=== PATIENT | female | born 1960 | race Caucasian/White ===

== ENCOUNTER 2024-01-30 05:09 | Inpatient (IN) | payer MEDICAID, SELFPAY ==
[2024-01-30] VITALS (7 sets, daily range): BP systolic 112–142; BP diastolic 64–92; PULSE 95–114; RESP 16–21; TEMP 36.6–37.2; O2SAT 93–98; BMI 37.8; BMI 44.4
--- NOTE | 2024-01-30 05:41 | PD.EDRME ---
Rapid Medical Screening Exam RME Arrival date/time: 01/30/24 05:09 Chief Complaint: Fall Time Seen by Provider: 01/30/24 05:42 Vital signs: Vital Signs Temperature 98.9 F 01/30/24 05:33 Pulse Rate 114 H 01/30/24 05:33 Respiratory Rate 19 01/30/24 05:33 Blood Pressure 112/92 H 01/30/24 05:33 Pulse Oximetry (%) 96 01/30/24 05:33 Oxygen Delivery Method Room Air 01/30/24 05:33 RME Narrative: 63 yo female patient c/o left knee pain s/p fall two days ago. Patient has a history of left foot drop and was without her brace when she needed to navigate down some stairs. Her foot twisted and she tripped, injuring her left knee.
--- NOTE | 2024-01-30 05:42 | XR_ITS ---
Examination:Left hip AP, lateral, AP pelvis 3 views Technique: Hip AP lateral, AP pelvis, 3 views Exam date and time:At 0600 hrs. Indications: Patient fell today with injury to the left hip, left hip pain Findings: No true AP view of the left hip Pelvis is not entirely included on this film No definite left hip fracture Impression: Technically limited study No left hip fracture noted Recommend follow-up true coned AP lateral left hip series as clinically warranted.
--- NOTE | 2024-01-30 05:42 | XR_ITS ---
Examination: Tibia-Fibula, left , 2 views Technique: Tibia-fibula AP lateral 2 views Date and time of exam: January 30, 2024 0547 hrs. Indications: Patient fell today with injury to the lower leg, lower leg pain. Findings: Severe osteopenia The lateral view does not include the upper portion of the lower leg No fracture noted Impression: Incomplete study Repeat as clinically warranted
--- NOTE | 2024-01-30 05:44 | XR_ITS ---
Examination: Knee, left , 3 views Technique: Knee AP, lateral, oblique 3 views Date and time of exam: Hours Indications: Patient fell today with injury to the knee, knee pain. Findings: Severe osteopenia No acute fracture No dislocation Impression: No acute fracture Given the severe osteopenia, recommend follow-up left knee films short-term as clinically warranted
[2024-01-30] MEDS: ONDANSETRON INJ 2 MG/ML INJ 2 ML 4 MG IV (06:00)
[2024-01-30] MEDS: MORPHINE SULF INJ 10 MG/ML VIAL 5 MG IVP (06:01)
--- NOTE | 2024-01-30 06:07 | PC.NURSE ---
X ray with pt now. Pt given Morphine IV. O2 @ 2L NC placed on pt.
--- NOTE | 2024-01-30 06:31 | EDNOTE_ITS ---
Lower Extremity Injury RME/HPI General Chief Complaint: Fall Stated Complaint: FALL Time Seen by Provider: 01/30/24 05:42 Arrival date/time: 01/30/24 05:09 RME / HPI RME / HPI Narrative: 63 yo female patient c/o left knee pain s/p fall two days ago. Patient has a history of left foot drop and was without her brace when she needed to navigate down some stairs. Her foot twisted and she tripped, injuring her left knee. DR. RAYMUNDO MAIN ED EVALUATION 63 year old female with history of COPD, asthma, DVT in the LLE currently on Eliquis, cirrhosis presents to the ED BIBA from home for evaluation of left lower extremity pain after fall occurring 3 days ago. States 3 days ago she was walking up the stairs with assistance of her friends when she lost her footing. States she fell down landing on her left side. States since the fall she has had pain to the left lower extremity, beginning in the hip and radiating down the leg and most severe to the left knee. Described as sharp in sensation and rating as moderate-severe that is aggravated with movements. Accompanied by redness and swelling from the knee down although states that began before the fall and has history of on/off for several months. Denied any head injury or LOC 3 days ago. Denies pain to her neck, chest, abdomen, back, or upper extremities. Patient mentioned at baseline she uses a left foot brace for foot drop and uses a walker to walk. Also uses a wheelchair. Related Data Home Medications ?Medication ?Instructions ?Recorded ?Confirmed albuterol sulfate 90 mcg/actuation 2 inh inhalation Q6H PRN wheeze 10/27/22 04/26/23 aerosol inhaler aspirin 81 mg tablet,delayed 81 mg PO DAILY 10/27/22 04/26/23 release duloxetine 60 mg capsule,delayed 60 mg PO DAILY 10/27/22 04/26/23 release gabapentin 300 mg capsule 300 mg PO TID 10/27/22 04/26/23 lisinopril 20 mg tablet 20 mg PO DAILY 10/27/22 04/26/23 pantoprazole 40 mg tablet,delayed 40 mg PO QDAY 10/27/22 04/26/23 release prazosin 1 mg capsule 1 mg PO HS 10/27/22 04/26/23 furosemide 40 mg tablet 40 mg PO QDAY 02/12/23 04/26/23 lactulose 10 gram/15 mL oral syrup 20 g PO BID 02/12/23 04/26/23 levothyroxine 50 mcg capsule 50 mcg PO ACBR 02/12/23 04/26/23 oxycodone 10 mg tablet 10 mg PO BID PRN Severe Pain 02/12/23 04/26/23 (Scale Score 7-10) tramadol 100 mg tablet 100 mg PO TID PRN Moderate Pain 02/12/23 04/26/23 (Scale Score 5-6) furosemide 40 mg tablet 40 mg PO QDAY 03/08/23 04/26/23 Previous Rx's ?Medication ?Instructions ?Recorded apixaban 5 mg tablet (Eliquis) 5 mg PO BID #60 tabs 02/14/23 Allergies Allergy/AdvReac Type Severity Reaction Status Date / Time Penicillins Allergy Severe Anaphylaxis Verified 03/08/23 10:20 erythromycin base AdvReac Intermediate Abdominal Verified 03/08/23 10:20 Pain lorazepam [From Ativan] AdvReac Intermediate COULDN'T Verified 03/08/23 10:20 TALK Review of Systems Review of Systems Narrative Review of Systems: GEN: No fever, no chills, no weight loss EYES: No discharge, no visual changes, no pain HEENT: No ear pain, no congestion, no sore throat PULM: No shortness of breath, no cough, no congestion CV: No chest pain, no dyspnea on exertion, no palpitations GI: No nausea, no vomiting, no diarrhea, no pain, no constipation : No frequency, no urgency and no dysuria MUSC/SKEL: +LLE pain, +left knee pain, no back pain SKIN: No rash HEME/LYMPH: +hx of LLE DVT currently on Eliquis. NEURO: No weakness, no headache Past Medical History Past Medical History CARDIAC: Positive Hypercholesterolemia and Hypertension RESPIRATORY: Positive Chronic Obstructive Pulmonary Disease (COPD), Asthma, Smoking and Tobacco Use GENITOURINARY: Positive Genitourinary Disorders (swollen left kidney) MUSCULOSKELETAL: Positive Arthritis, Osteoporosis, Degenerative Disk Disease and Fractures HEMATOLOGIC: Positive Anemia PSYCHO/SOCIAL: Positive Recreational Drug Use and Depression OTHER HISTORY: Positive Blood Transfusions Family History FAMILY HISTORY: Positive Family Cardiac Disorders and Family Cancer Surgical History SURGICAL: Positive Abdominal Surgery, Gastric Bypass Surgery, Lumpectomy and Section Social History SMOKING STATUS: Current every day smoker SUBSTANCE USE: methamphetamine ED Exam Narrative Physical exam: GENERAL APPEARANCE: Well hydrated, well nourished, in mild distress. Obese. VITALS: All vitals were reviewed and the pulse ox is 96% on room air which is normal according to my interpretation. HEENT: Normocephalic, atramatic, EOMI, EACs are patent. Moist oromucosa. No jaundice NECK: Supple, no JVD or bruits. CARDIOVASCULAR: Heart regular without S3-S4 or murmur. No rubs or gallops. LUNGS/CHEST: Clear to auscultation bilaterally. No rales, rhonchi, or wheezing. Normal inspection. ABDOMEN: Soft, obese, nontender, with normal bowel sounds. No pulsatile masses. No rebound, rigidity, or guarding. No incarcerated hernia. Normal inspection and palpation. EXTREMITIES: Left foot drop. Left hip tenderness, no shortened leg or external rotation. Left knee swelling and tenderness. There is redness, increased warmth, and tenderness to touch over the left tib-fib area. No edema, clubbing, or cyanosis. Intact CSM SKIN: Warm and dry without rashes. Normal inspection. MUSCULOSKELETAL: As noted above. No gross deformity. NEURO: Alert and oriented x3. Cranial nerves II through XII grossly intact. There are no other motor or sensory deficits noted. PSYCHIATRIC: Normal mood and affect. No psychosis. Course Quality Measures none Orders Category Date Time Status Miscellaneous Nursing Order NOW Care 01/30/24 13:03 Active Saline [Insert IV] NOW Care 01/30/24 06:[address] head/brain wo con Stat Exams 01/30/24 06:[address] hip LT wo con Stat Exams 01/30/24 06:[address] knee LT wo con Stat Exams 01/30/24 06:39 Completed US venous doppler LE LT Stat Exams 01/30/24 06:39 Completed XR hip LT w pelvis min 4V Stat Exams 01/30/24 05:42 Completed XR knee comp LT 4V Stat Exams 01/30/24 05:44 Completed XR tibia fibula LT 2V Stat Exams 01/30/24 05:42 Completed CBC Stat Lab 01/30/24 06:59 Completed CMP [Comprehensive Metabolic Panel] Stat Lab 01/30/24 06:59 Completed PT [Prothrombin Time with INR] Stat Lab 01/30/24 06:59 Completed PTT [Partial Thromboplastin Time] Stat Lab 01/30/24 06:59 Completed Morphine Inj Med 01/30/24 09:35 Discontinued 4 mg IVP X1 ONE Morphine Inj Med 01/30/24 05:42 Discontinued 5 mg IVP X1 ONE Ondansetron Inj [Zofran Inj] Med 01/30/24 05:42 Discontinued 4 mg IV X1 ONE Ondansetron Inj [Zofran Inj] Med 01/30/24 09:35 Discontinued 4 mg IV X1 ONE Vital Signs Vital signs: Vital Signs Temperature 98.9 F 01/30/24 05:33 Pulse Rate 114 H 01/30/24 05:33 Respiratory Rate 19 01/30/24 05:33 Blood Pressure 112/92 H 01/30/24 05:33 Pulse Oximetry (%) 96 01/30/24 05:33 Oxygen Delivery Method Room Air 01/30/24 05:33 Pulse ox is 96% on room air which is adequate. Extremity Injury, Lower MDM Narrative MDM Narrative:: Rabia Hanna am scribing for and in the presence of Dr. Raymundo. CBC negative. CMP negative. CT brain was reviewed and interpreted by me as follow: No bleed. No mass. No shift. No swelling. Normal ventricle. Normal skull. CT left hip reviewed and interpreted by me as follow: No fracture. No dislocation. Normal acetabulum. Normal superior and inferior pubic rami. CT of the left knee reviewed and interpreted by me as follow: Positive for fluid inside the knee joint. Positive for medial plateau fracture of the tibia. With minimal displacement on the coronal view. Left hip x-ray interpreted by me: No fracture. No dislocation. Normal bones. Left tibia and fibula x-rays interpreted by me: No fracture. No dislocation. No foreign body. Minimum soft tissue swelling. Left knee x-rays interpreted by me: It appears that she has a fracture of the medial part of the tibial plateau. Also some swelling. No dislocation DVT study of the left leg is negative by ultrasound. 1 PM, I spoke to and discussed with Dr. Harrison, orthopedist on-call. He agreed to consult on admission. He also recommend MRI of the left knee. He is aware that the CAT scan has been done. 1:20 PM, I spoke to and discussed with Dr. Heaton, hospitalist on-call. He agrees to evaluate the patient for admission. Critical care time is approximately 35 minutes excluding any procedure. The high probability of sudden, clinically significant deterioration in the patient?s condition required the highest level of my preparedness to intervene urgently. The services I provided to this patient were to treat and/or prevent clinically significant deterioration. Services included the following: chart data review, reviewing nursing notes and/or old charts, documentation time, senior sustainability consultant collaboration regarding findings and treatment options, medication orders and management, direct patient care, vital sign assessments and ordering, interpreting and reviewing diagnostic studies and lab tests. Aggregate critical care time includes only time during which I was engaged in work directly related to the patient?s care, as described above, whether at bedside or elsewhere in the Emergency Department. It did not include time spent performing other reported procedures or the services of residents, students, nurses or physician assistants. Patient data External records reviewed:: [facility] previous records (I reviewed admission from 02/11/2023 through 02/14/2023) and EMS form Clinical information provided by:: patient and other (specify) (RN, provided medics prehospital report ) Social determinants that could affect healthcare access:: alcohol use (Patient admits to last drinking last night ) Patient has the following chronic illnesses:: COPD, asthma, DVT in the LLE currently on Eliquis, cirrhosis How is presenting disease/condition affected by chronic disease/condition?: exacerbated by Evaluation data The following diagnostics were reviewed and interpreted by me:: lab results and radiology exam(s) Lab and/or radiology exams considered but not ordered:: None Interpretation Summary: Ordering Physician: Juli Szymanski MD Date of Service: 01/30/24 Procedure(s): XR hip LT w pelvis min 4V Accession Number(s): [id number] cc: Josue Mosquera MD; NO PRIMARY/FAMILY,PHYSICIAN; Juli Szymanski MD~ Examination:Left hip AP, lateral, AP pelvis 3 views Technique: Hip AP lateral, AP pelvis, 3 views Exam date and time:At 0600 hrs. Indications: Patient fell today with injury to the left hip, left hip pain Findings: No true AP view of the left hip Pelvis is not entirely included on this film No definite left hip fracture Impression: Technically limited study No left hip fracture noted Recommend follow-up true coned AP lateral left hip series as clinically warranted. Dictated By: Josue Mosquera MD Signed By: <Electronically signed by Josue Mosquera MD in OV> 01/30/24 0726 ===== Ordering Physician: Juli Szymanski MD Date of Service: 01/30/24 Procedure(s): XR tibia fibula LT 2V Accession Number(s): [id number] cc: Josue Mosquera MD; NO PRIMARY/FAMILY,PHYSICIAN; Juli Szymanski MD~ Examination: Tibia-Fibula, left , 2 views Technique: Tibia-fibula AP lateral 2 views Date and time of exam: January 30, 2024 0547 hrs. Indications: Patient fell today with injury to the lower leg, lower leg pain. Findings: Severe osteopenia The lateral view does not include the upper portion of the lower leg No fracture noted Impression: Incomplete study Repeat as clinically warranted Dictated By: Josue Mosquera MD Signed By: <Electronically signed by Josue Mosquera MD in OV> 01/30/24 0732 == Ordering Physician: Juli Szymanski MD Date of Service: 01/30/24 Procedure(s): XR knee comp LT 4V Accession Number(s): [id number] cc: Josue Mosquera MD; NO PRIMARY/FAMILY,PHYSICIAN; Juli Szymanski MD~ Examination: Knee, left , 3 views Technique: Knee AP, lateral, oblique 3 views Date and time of exam: Hours Indications: Patient fell today with injury to the knee, knee pain. Findings: Severe osteopenia No acute fracture No dislocation Impression: No acute fracture Given the severe osteopenia, recommend follow-up left knee films short-term as clinically warranted Dictated By: Josue Mosquera MD Signed By: <Electronically signed by Josue Mosquera MD in OV> 01/30/24 07 == Ordering Physician: Rashawn Raymundo MD Date of Service: 01/30/24 Procedure(s): CT head/brain wo con Accession Number(s): [id number] cc: Josue Mosquera MD; NO PRIMARY/FAMILY,PHYSICIAN; Rashawn Raymundo MD~ Examination: CT brain head without contrast. 2-D sagittal coronal reconstructions Date and time of exam:January 30, 2024 0721 hrs. Comparison 10/26/2022 Indications: Patient fell today, injury to the head, head pain, the patient is anticoagulated CTDI: vol (mGy):50.2 DLP: (mGycm):1092 Technique: Multiple CT axial sections of the brain have been obtained, 5 mm slice thickness. Contrast has not been administered. 2-D sagittal, coronal reconstructions have been obtained Low dose protocols were performed. One or more of the following dose reduction techniques were used; automated exposure control, adjustment of the mA and/or KV according to patient size, use of iterative reconstruction technique. Findings: No significant ventricular enlargement. Intra-axial or extra-axial hemorrhage density is not seen. No mass effect or midline shift Basal cisterns are not remarkable. Fourth ventricle is midline. Cranial vault intact. Impression: Negative for acute hemorrhage, mass effect or midline shift Dictated By: Josue Mosquera MD Signed By: <Electronically signed by Josue Mosquera MD in OV> 01/30/24 0752 === Ordering Physician: Rashawn Raymundo MD Date of Service: 01/30/24 Procedure(s): CT hip LT wo con Accession Number(s): [id number] cc: Josue Mosquera MD; NO PRIMARY/FAMILY,PHYSICIAN; Rashawn Raymundo MD~ Examination: CT pelvis without intravenous contrast. CT left hip without intravenous contrast 2-D sagittal and coronal reconstructions. Date and time of exam:January 30 2024 0723 hrs. CTDI: vol (mGy) :5 DLP: (mGycm) : 591 Technique: Multiple 3 mm axial sections of the pelvis left hip have been obtained with the 64 slice high resolution scanner. 2-D sagittal and coronal reconstructions. Low dose protocols were performed. One or more of the following dose reduction techniques were used; automated exposure control, adjustment of the mA and/or KV according to patient size, use of iterative reconstruction technique. Findings: Bones of the pelvis including acetabular regions anterior rami intact Right and left hip intact No hip dislocations Soft tissue contusion lateral to the left hip Urinary bladder intact Impression: Soft tissue contusion lateral to the left hip No acute hip or pelvic fracture Recommend 1-2 day follow-up AP pelvis as clinically warranted Dictated By: Josue Mosquera MD Signed By: <Electronically signed by Josue Mosquera MD in OV> 01/30/24 0821 == Ordering Physician: Rashawn Raymundo MD Date of Service: 01/30/24 Procedure(s): CT knee LT wo con Accession Number(s): [id number] cc: Josue Mosquera MD; NO PRIMARY/FAMILY,PHYSICIAN; Rashawn Raymundo MD~ Examination: CT left knee, without contrast. 2-D sagittal reconstructions. 2-D coronal reconstructions. 3-D reconstructions. Date and time of exam:January 30, 2024 0730 hrs. Indications: Patient fell today with injury to the knee, knee pain CTDI: vol (mGy):11 DLP: (mGycm):358 Technique: Multiple 1.25 mm axial sections of the left knee without intravenous contrast have been obtained. 2-D sagittal and coronal reconstructions have been obtained. 3-D reconstructions have been obtained. Low dose protocols were performed. One or more of the following dose reduction techniques were used; automated exposure control, adjustment of the mA and/or KV according to patient size, use of iterative reconstruction technique. Findings: Severe osteopenia distal femur femoral condyles intact Patella intact Acute fracture proximal tibia through the medial tibial metaphyseal region extending to the medial tibial plateau and intercondylar region of the tibial spine Extensive blood in the joint space No foreign body Impression: Acute fractures proximal tibia through the medial tibial plateau region and intercondylar spine region without major displacement Dictated By: Josue Mosquera MD Signed By: <Electronically signed by Josue Mosquera MD in OV> 01/30/24 0819 ========= Ordering Physician: Rashawn Raymundo MD Date of Service: 01/30/24 Procedure(s): US venous doppler LE Accession Number(s): [id number] cc: Josue Mosquera MD; NO PRIMARY/FAMILY,PHYSICIAN; Rashawn Raymundo MD~ Examination: Duplex scan of the lower extremity, unilateral left complete Date and time of exam: January 30, 2024 0746 hours Indications left leg swelling and pain beginning today Technique: Duplex scan of the extremity veins using B-mode/grayscale imaging and Doppler spectral analysis and color flow Attention is directed to internal echogenicity, compression and augmentation involving these veins, color flow assessment, spectral analysis Findings: Major deep venous structures in the extremity demonstrate normal course and caliber. There is no evidence of deep vein thrombosis. Normal color flow and spectral analysis Impression: Negative for DVT.. Dictated By: Josue Mosquera MD Signed By: <Electronically signed by Josue Mosquera MD in OV> 01/30/24 0953 Medications / Prescriptions Medications or Prescriptions considered but not ordered:: None Medication administrations:: Medication Administration History Discontinued Medications Morphine Sulfate (Morphine Sulf Inj 10 Mg/Ml Vial) 5 mg IVP X1 ONE Stop: 01/30/24 05:43 Last Admin: 01/30/24 06:01 Dose: 5 mg Documented By: DIVYA Morphine Sulfate (Morphine Sulf Inj 10 Mg/Ml Vial) 4 mg IVP X1 ONE Stop: 01/30/24 09:36 Last Admin: 01/30/24 10:07 Dose: 4 mg Documented By: Ondansetron HCl (Ondansetron Inj 2 Mg/Ml Inj 2 Ml) 4 mg IV X1 ONE Stop: 01/30/24 05:43 Last Admin: 01/30/24 06:00 Dose: 4 mg Documented By: DIVYA Ondansetron HCl (Ondansetron Inj 2 Mg/Ml Inj 2 Ml) 4 mg IV X1 ONE; Protocol Stop: 01/30/24 09:36 Last Admin: 01/30/24 12:17 Dose: Not Given Documented By: Non-Admin Reason: Patient Refused See above Consultations Consultation(s) initiated? (list below): Yes Consultation #1 (Physician, Specialty, Details): I spoke with ortho Dr. Gonzalez. Discussed patients PMHx, HPI, ED course, exam findings, and radiology results. States he will review the images and call back. Time: 09:45 Consultation #2 (Physician, Specialty, Details): I spoke with ortho Dr. Gonzalez. He recommends admission and agrees to consult. Consultation #3 (Physician, Specialty, Details): I spoke with hospitalist Dr. Heaton. Discussed patients PMHx, HPI, ED course, exam findings, labs, and radiology results. The hospitalist agree to accept the patient for admission. Diagnosis Extremity Injury, Lower Differential Diagnosis: acute internal derangement of knee, fracture of femur and fracture of hip Most likely diagnosis given after review of the tests above:: Left tibial plateau fracture. Admission Indicated Admission indicated?: indicated Admission Request Was there a request for admission?: Yes Admission Attestation Admission request attestation: Discussed case with [] from Hospitalist service regarding admission. Discussed patients ED course, exam findings, labs, and radiology results. The Hospitalist [agrees,declines] to accept the patient for admission. Disposition Plan Disposition Plan: Admit Discharge Plan Plan Patient Disposition: Admit Acute Care w/in Hospital Disposition Comment: Stable Prescriptions/Referrals Prescriptions/Med Rec: No Action furosemide 40 mg tablet 40 mg PO QDAY lactulose 10 gram/15 mL Syrup 20 g PO BID oxycodone 10 mg Tablet 10 mg PO BID PRN (Reason: Severe Pain (Scale Score 7-10)) tramadol 100 mg Tablet 100 mg PO TID PRN (Reason: Moderate Pain (Scale Score 5-6)) furosemide 40 mg Tablet 40 mg PO QDAY Hold Instructions: Hold until follow up with PCP Rx Instructions: Hold SBP<100, DBP <60 levothyroxine 50 mcg capsule 50 mcg PO ACBR Eliquis 5 mg tablet 5 mg PO BID Qty: 60 0RF prazosin 1 mg capsule 1 mg PO HS Hold Instructions: Hold until follow up with PCP Rx Instructions: Hold If SBP<100, DBP< 60 lisinopril 20 mg tablet 20 mg PO DAILY Hold Instructions: Hold until follow up with PCP Rx Instructions: Hold for SBP<100, DBP <60 aspirin 81 mg tablet,delayed release (DR/EC) 81 mg PO DAILY pantoprazole 40 mg tablet,delayed release (DR/EC) 40 mg PO QDAY gabapentin 300 mg capsule 300 mg PO TID albuterol sulfate 90 mcg/actuation HFA aerosol inhaler 2 inh INHALATION Q6H PRN (Reason: wheeze) duloxetine 60 mg capsule,delayed release(DR/EC) 60 mg PO DAILY Referrals: No Primary/Family,Physician [Primary Care Provider] - In 1 week Problem List Clinical Impression: Closed fracture of tibial plateau Patient/Caregiver Discharge Instructions Print Language: Ukrainian Stand Alone Forms: Cami Award Info., Patient Portal Info Letter
--- NOTE | 2024-01-30 06:39 | XR_ITS ---
Examination: CT pelvis without intravenous contrast. CT left hip without intravenous contrast 2-D sagittal and coronal reconstructions. Date and time of exam:January 30 2024 0723 hrs. CTDI: vol (mGy) :5 DLP: (mGycm) : 591 Technique: Multiple 3 mm axial sections of the pelvis left hip have been obtained with the 64 slice high resolution scanner. 2-D sagittal and coronal reconstructions. Low dose protocols were performed. One or more of the following dose reduction techniques were used; automated exposure control, adjustment of the mA and/or KV according to patient size, use of iterative reconstruction technique. Findings: Bones of the pelvis including acetabular regions anterior rami intact Right and left hip intact No hip dislocations Soft tissue contusion lateral to the left hip Urinary bladder intact Impression: Soft tissue contusion lateral to the left hip No acute hip or pelvic fracture Recommend 1-2 day follow-up AP pelvis as clinically warranted
--- NOTE | 2024-01-30 06:39 | XR_ITS ---
Examination: CT brain head without contrast. 2-D sagittal coronal reconstructions Date and time of exam:January 30, 2024 0721 hrs. Comparison 10/26/2022 Indications: Patient fell today, injury to the head, head pain, the patient is anticoagulated CTDI: vol (mGy):50.2 DLP: (mGycm):1092 Technique: Multiple CT axial sections of the brain have been obtained, 5 mm slice thickness. Contrast has not been administered. 2-D sagittal, coronal reconstructions have been obtained Low dose protocols were performed. One or more of the following dose reduction techniques were used; automated exposure control, adjustment of the mA and/or KV according to patient size, use of iterative reconstruction technique. Findings: No significant ventricular enlargement. Intra-axial or extra-axial hemorrhage density is not seen. No mass effect or midline shift Basal cisterns are not remarkable. Fourth ventricle is midline. Cranial vault intact. Impression: Negative for acute hemorrhage, mass effect or midline shift
--- NOTE | 2024-01-30 06:39 | XR_ITS ---
Examination: CT left knee, without contrast. 2-D sagittal reconstructions. 2-D coronal reconstructions. 3-D reconstructions. Date and time of exam:January 30, 2024 0730 hrs. Indications: Patient fell today with injury to the knee, knee pain CTDI: vol (mGy):11 DLP: (mGycm):358 Technique: Multiple 1.25 mm axial sections of the left knee without intravenous contrast have been obtained. 2-D sagittal and coronal reconstructions have been obtained. 3-D reconstructions have been obtained. Low dose protocols were performed. One or more of the following dose reduction techniques were used; automated exposure control, adjustment of the mA and/or KV according to patient size, use of iterative reconstruction technique. Findings: Severe osteopenia distal femur femoral condyles intact Patella intact Acute fracture proximal tibia through the medial tibial metaphyseal region extending to the medial tibial plateau and intercondylar region of the tibial spine Extensive blood in the joint space No foreign body Impression: Acute fractures proximal tibia through the medial tibial plateau region and intercondylar spine region without major displacement
--- NOTE | 2024-01-30 06:39 | XR_ITS ---
Examination: Duplex scan of the lower extremity, unilateral left complete Date and time of exam: January 30, 2024 0746 hours Indications left leg swelling and pain beginning today Technique: Duplex scan of the extremity veins using B-mode/grayscale imaging and Doppler spectral analysis and color flow Attention is directed to internal echogenicity, compression and augmentation involving these veins, color flow assessment, spectral analysis Findings: Major deep venous structures in the extremity demonstrate normal course and caliber. There is no evidence of deep vein thrombosis. Normal color flow and spectral analysis Impression: Negative for DVT..
--- NOTE | 2024-01-30 07:12 | PC.NURSE ---
new brief and purwick in place. pillows in place for pt comfort.
[2024-01-30 07:22] LABS: Basophils # (Auto) 0.1 Thou/mm3 (0.0-0.2); Basophils % (Auto) 1 % (0-2.5); Eosinophils # (Auto) 0.2 Thou/mm3 (0.0-0.5); Eosinophils % (Auto) 3 % (0-10); Hematocrit 32.3 % (36.0-46.0); Immature Granulocytes % (Auto) 1 % (0-0); Immature Granulocytes Auto 0.11 Thou/mm3 (0.00-0.00); Lymphocytes # (Auto) 1.9 Thou/mm3 (1.0-4.8); Lymphocytes % (Auto) 22 % (10-50); Mean Corpuscular Hemoglobin 27.2 pg (25.0-35.0); Mean Corpuscular Volume 88 fL (80-100); Monocytes # (Auto) 1.2 Thou/mm3 (0.0-0.8); Monocytes % (Auto) 14 % (0-12); Neutrophils # (Auto) 5.2 Thou/mm3 (1.8-7.7); Neutrophils % (Auto) 60 % (37-80); Nucleated Red Blood Cell # 0.02 Thou/mm3 (0.00-0.00); Nucleated Red Blood Cell % 0 /100 WBC (0); Platelet Count 175 Thou/mm3 (140-440); Red Blood Count 3.68 Miln/mm3 (4.00-5.20); White Blood Count 8.6 Thou/mm3 (3.6-11.0)
[2024-01-30 07:36] LABS: Alanine Aminotransferase 18 U/L (10-49); Albumin, Serum 3.5 gm/dL (3.4-4.8); Albumin/Globulin Ratio 1.2 (1.2-2.2); Alkaline Phosphatase 165 U/L (46-116); Anion Gap 5 (7-16); Aspartate Amino Transferase 18 U/L (0-34); BUN/Creatinine Ratio 14 Ratio (12-20); Bilirubin,Total 0.6 mg/dL (0.3-1.2); Blood Urea Nitrogen 10 mg/dL (9-23); Calcium 8.5 mg/dL (8.3-10.6); Calcium (Corrected) 8.9 mg/dL (8.5-10.1); Carbon Dioxide 26.7 mMol/L (20.0-31.0); Chloride 105 mMol/L (98-107); Creatinine (Component) 0.7 mg/dL (0.6-1.3); Estimated Creatinine Clearance 96.9 mL/min (>60); Glucose 127 mg/dL (74-106); Osmolality,Calculated 274 (275-295); Potassium 3.6 mMol/L (3.4-5.1); Sodium 137 mMol/L (136-145); Total Protein 6.5 gm/dL (5.7-8.2); eGFR > 60 See Note
[2024-01-30 08:02] LABS: INR 1.1 (0.9-1.3); Partial Thromboplastin Time 26.5 Seconds (22.0-36.0); Prothrombin Time 12.1 Seconds (9.0-12.2)
--- NOTE | 2024-01-30 08:54 | CHAP ---
Patient expressed gratitude for visit and prayer.
[2024-01-30] MEDS: MORPHINE SULF INJ 10 MG/ML VIAL 4 MG IVP (10:07)
--- NOTE | 2024-01-30 15:06 | PD.RESHP ---
Documentation for date of: 01/30/24 HPI History of Present Illness History of present illness: Chief complaint: Ground-level mechanical fall HPI: Ms Caban is a 62-year-old woman with past medical history of DVT on Eliquis, alcoholic liver cirrhosis, foot drop after a left fibular fracture, chronic radicular back pain 2/2 L3-L5 stenosis, hypothyroidism, depression, bilateral knee osteoarthritis, who presented to the ED on 01/30/2024 after a ground-level fall. Patient was at a friend's house and fell down the stairs when she lost her balance due to a chronic left foot drop. She denies any syncope, or loss of consciousness before or after the event. Patient stated that the staircase did not have adequate support for her, given that she is wheelchair-bound and is unable to ambulate without assistance, therefore she could not balance herself as there were no railings to hold onto. She lost her balance, fell on the stairs and had excruciating left knee pain right after. She states that her foot drop has been ongoing for many years, possibly due to her back issues, for which she now follows up with Dr Hawk edgar. She has a history of multiple epidural injections for chronic back pain. She denies any hospitalization for falls in the past. At this time, patient is in 10/10 pain, unable to bend her left knee and since the incident she has not been able to bear weight or carry out activities such as independently transfering herself as she used to in the past. In the ED, vitals showed BP 138/86, tachycardia HR 103 bpm, and saturating 96% on 2 L NC. Initial body workup was remarkable for normocytic anemia Hb 10 MCV 88, normal coagulation panel, and CMP remarkable only for mild hyperglycemia 127 and mildly elevated ALP 165. On imaging studies, hip x-ray was negative for any left hip fracture, pelvis appears intact. X-ray of the left tibia-fibula region showed an incomplete study. This was followed by x-ray of the left knee, with findings consistent with severe osteopenia but no acute fracture. Head CT was negative for any acute findings. Hip CT without contrast was also ordered which showed soft tissue contusion lateral to the left hip only. A follow-up CT scan of the knee however was consistent with acute fracture of the proximal tibia through the medial tibial plateau region and intercondylar spine, without any major displacement noted. Venous ultrasound duplex of the left lower extremity was negative for DVT, with normal color-flow and spectral analysis. Patient is being admitted for the work-up and management of acute left proximal tibia fracture extending into the intercondylar spine, without displacement. Orthopedic surgeon Dr. Gonzalez is consulted, will look forward to his recommendations. Patient started on adequate pain control, diet and to be n.p.o. after midnight for possible surgical intervention. Past medical history: - DVT on Eliquis - Alcoholic liver cirrhosis - LT Foot drop after a fibular fracture - Chronic radicular back pain - Hypothyroidism - Depression - B/L knee osteoarthritis - Primary hypertension Medication list: ? Eliquis 5 mg twice daily ? Atorvastatin 20 mg daily ? Pantoprazole 40 mg daily ? Duloxetine 60 mg daily ? Pregabalin 100 mg 3 times daily ? Vitamin D2 1.25 mg weekly ? Oxycodone 5 mg as needed ? Naloxone as needed ? Lactulose 10 g as needed ? Levothyroxine 50 mcg daily Pending final med rec Allergies: Penicillin - hives Lorazepam - confusion Social history: Marital?Status:?Single Tobacco?Use:?Denies ETOH?Use:?Socially Drug?Note:?Denies Social?History?Note:?Lives?alone at home, has a helper who comes every day to assist with activities of daily living Family history: Patient denies family history of stroke, CAD. Positive for hypothyroid and hypertension. Review of Systems Review of Systems Narrative Review of Systems: GENERAL: Denies fevers/chills or diaphoresis. HEENT: Denies headache or visual/hearing changes. Denies nasal discharge. NEURO: Denies unusual weakness or difficulty speaking. CARDIO: Denies chest pain or palpitations. PULM: Denies SOB, coughing, or wheezing. GI: Denies abdominal pain, N/V/C/D. Reports having BMs URO: Denies burning/itching/pain. Intermittent urge incontinence. [employer]: Denies menstrual changes, hot flashes. MSK/EXT/SKIN: Left knee pain 10/10, unable to flex or bear weight PSYCH: Cooperative, pleasant mood & affect. The rest of the review of systems is otherwise negative. Exam Vital Signs Temp Pulse Resp BP Pulse Ox O2 Del Method O2 Flow Rate 98.6 F 103 H 16 138/86 H 96 Nasal Cannula 2 01/30/24 10:20 12/16/24 12:18 01/30/24 12:18 01/30/24 12:18 01/30/24 12:18 01/30/24 12:18 01/30/24 12:18 Narrative Exam Constitutional Alert, oriented x4. Obese HEENT Vision grossly intact. Patent nares. On 2L via NC. Respiratory Chest normal on inspection and mild congestion on auscultation. Cardiovascular S1 and S2 audible, RRR. No murmurs or carotid bruit. No gross JVD. Abdominal Soft and non tender to palpation in all quadrants. BS + Genitourinary No bladder tenderness, no flank pain. Normal to palpation. Musculoskeletal Extremities tone within normal limits. LT knee erythema and swelling. Neurological CN II - XII grossly intact. Extremity sensation grossly intact. LLE range of motion limited to extension only. Skin Warm, dry and intact. No apparent lesions. Psychiatric Patient has a good affect, is cooperative. Results: Labs 01/31/24 04:24 01/31/24 04:24 Labs: Short CBC 01/30/24 Range/Units 06:59 WBC 8.6 (3.6-11.0) Thou/mm3 Hgb 10.0 L (12.0-16.0) g/dL Hct 32.3 L (36.0-46.0) % Plt Count 175 (140-440) Thou/mm3 BMP 01/30/24 06:59 Sodium 137 Potassium 3.6 Chloride 105 Carbon Dioxide 26.7 BUN 10 Creatinine 0.7 Glucose 127 H Calcium 8.5 Liver Function 01/30/24 Range/Units 06:59 Total Bilirubin 0.6 (0.3-1.2) mg/dL AST 18 (0-34) U/L ALT 18 (10-49) U/L Alkaline Phosphatase 165 H (46-116) U/L Albumin 3.5 (3.4-4.8) gm/dL Quality Measures Quality Measures none Medications Home Medications and Allergies Home Medications ?Medication ?Instructions ?Recorded ?Confirmed ?Type albuterol sulfate 90 mcg/actuation 2 inh inhalation Q6H PRN wheeze 10/27/22 04/26/23 History aerosol inhaler aspirin 81 mg tablet,delayed 81 mg PO DAILY 10/27/22 04/26/23 History release duloxetine 60 mg capsule,delayed 60 mg PO DAILY 10/27/22 04/26/23 History release gabapentin 300 mg capsule 300 mg PO TID 10/27/22 04/26/23 History lisinopril 20 mg tablet 20 mg PO DAILY 10/27/22 04/26/23 History pantoprazole 40 mg tablet,delayed 40 mg PO QDAY 10/27/22 04/26/23 History release prazosin 1 mg capsule 1 mg PO HS 10/27/22 04/26/23 History furosemide 40 mg tablet 40 mg PO QDAY 02/12/23 04/26/23 History lactulose 10 gram/15 mL oral syrup 20 g PO BID 02/12/23 04/26/23 History levothyroxine 50 mcg capsule 50 mcg PO ACBR 02/12/23 04/26/23 History oxycodone 10 mg tablet 10 mg PO BID PRN Severe Pain 02/12/23 04/26/23 History (Scale Score 7-10) tramadol 100 mg tablet 100 mg PO TID PRN Moderate Pain 02/12/23 04/26/23 History (Scale Score 5-6) furosemide 40 mg tablet 40 mg PO QDAY 03/08/23 04/26/23 History Allergies Allergy/AdvReac Type Severity Reaction Status Date / Time Penicillins Allergy Severe Anaphylaxis Verified 03/08/23 10:20 erythromycin base AdvReac Intermediate Abdominal Verified 03/08/23 10:20 Pain lorazepam [From Ativan] AdvReac Intermediate COULDN'T Verified 03/08/23 10:20 TALK Visit Medications Discontinued Medications Morphine Sulfate (Morphine Sulf Inj 10 Mg/Ml Vial) 5 mg IVP X1 ONE Stop: 01/30/24 05:43 Last Admin: 01/30/24 06:01 Dose: 5 mg Morphine Sulfate (Morphine Sulf Inj 10 Mg/Ml Vial) 4 mg IVP X1 ONE Stop: 01/30/24 09:36 Last Admin: 01/30/24 10:07 Dose: 4 mg Ondansetron HCl (Ondansetron Inj 2 Mg/Ml Inj 2 Ml) 4 mg IV X1 ONE Stop: 01/30/24 05:43 Last Admin: 01/30/24 06:00 Dose: 4 mg Ondansetron HCl (Ondansetron Inj 2 Mg/Ml Inj 2 Ml) 4 mg IV X1 ONE; Protocol Stop: 01/30/24 09:36 Last Admin: 01/30/24 12:17 Dose: Not Given Assessment & Plan Plan Ms Caban is a 62-year-old woman with past medical history of DVT on Eliquis, alcoholic liver cirrhosis, foot drop after a left fibular fracture, chronic radicular back pain 2/2 L3-L5 stenosis, hypothyroidism, depression, bilateral knee osteoarthritis, who presented to the ED on 01/30/2024 after a ground-level fall. Patient was at a friend's house and fell down the stairs when she lost her balance due to a chronic left foot drop, for which she now follows up with Dr Arechiga outpatient. She has a history of multiple epidural injections for chronic back pain. On imaging studies, Head CT was negative for any acute findings. CT scan of the knee was consistent with acute fracture of the proximal tibia through the medial tibial plateau region and intercondylar spine, without any major displacement noted. Patient is being admitted for the work-up and management of acute left proximal tibia fracture extending into the intercondylar spine, without displacement. Orthopedic surgeon Dr. Gonzalez is consulted, will look forward to his recommendations. 1. LT knee pain 2. Acute non displaced fracture of the LT proximal tibia 3. Ground level mechanical fall In the setting of 4. Bilateral knee osteoarthritis 5. Chronic left foot drop 6. Hx of Lumbar spinal stenosis L3-L5 7. Chronic back pain Patient was at a friend's house and fell down the stairs when she lost her balance due to a chronic left foot drop. She denies any syncope, or loss of consciousness before or after the event. She denies any hospitalization for falls in the past. At this time, patient is in 10/10 pain, unable to bend her left knee and since the incident. - Hip x-ray : negative for any left hip fracture, pelvis appears intact. - X-ray of the left tibia-fibula region : incomplete study. - X-ray of the left knee : severe osteopenia but no acute fracture. - Head CT : negative for any acute findings. - Hip CT without contrast : soft tissue contusion lateral to the left hip only. - CT scan of the knee : acute fracture of the proximal tibia through the medial tibial plateau region and intercondylar spine, without any major displacement noted. - She states that her foot drop has been ongoing for many years, possibly due to her back issues, for which she now follows up with Dr Arechiga outpatient. Plan: - Patient is being admitted for the work-up and management of acute left proximal tibia fracture extending into the intercondylar spine, without displacement. - Orthopedic surgeon Dr. Gonzalez is consulted, will look forward to his recommendations. - PRN Acetaminophen 650 mg to 6 hours for fever > 100.1 - Started on low sodium diet for now. N.p.o. after midnight for possible surgical intervention. - Pain control: Tylenol (1-3) + Randolph 10/325 q4H (4-6) + IV Morphine 2 mg (7-10) - PRN Dilaudid 1mg q3H for breakthrough pain 8. Hx of unprovoked DVT, on DOAC 9. Sinus tachycardia - Vitals showed sinus tachycardia HR 103 bpm, BP wnl. - 11/13/2022 US doppler of LLE : non-occlusive thrombus in the superficial left greater saphenous vein. CTA chest was negative for PE - Patient was started on Eliquis 5 mg p.o. twice daily since 11/13/2022 - 2023 US duplex of the LLE : negative for DVT, with normal color-flow and spectral analysis. Plan: - Left lower extremity ultrasound negative for DVT at this time. DVT prophylaxis with SC heparin 5000 units every 8 hours - HOLD Eliquis as possible surgical intervention by orthopedics for fracture - Follow-up orthopedic recommendations, will resume home Eliquis if no surgery planned within 24 hours. - EKG ordered, likely sinus as per tele monitor. Tachycardia likely in the setting of excruciating pain. 10. History of alcoholic liver cirrhosis 11. Hx of LGIB 2/2 diverticulosis 12. Normocytic anemia - Initial body workup was remarkable for normocytic anemia Hb 10 MCV 88 - Last colonoscopy in October 2022 confirming severe diverticulosis of the descending colon - On DOAC at home 5 mg Eliquis twice daily for DVT history Plan: - Currently on subcutaneous heparin, Eliquis on hold - Patient denies any recent episodes of GI bleed or hospitalizations for the same. - Resume home Eliquis before discharge, and monitor closely for tolerance - Coag panel wnl, no other abnormalities. Liver disease appears to be compensated. 13. Depression 14. Hypothyroidism 15. Obesity - Patient was discharged on levothyroxine 50 mcg daily in October 2022 - No recent prescriptions for levothyroxine on Med rec - On duloxetine 60 mg daily at home - BMI 37.8 Plan: - Pending final med rec. Questionable history of hypertension, no antihypertensives noted on med rec. - TSH ordered for a.m. draw. Will follow-up with free T4 if needed. - Resumed duloxetine 30 mg twice daily - Patient will benefit from outpatient GLP-1 therapy for weight loss - Follow-up HbA1c in a.m. draw to evaluate for metabolic syndrome Health maintenance: Disposition: Med surg for LT tibial fracture Diet: Low-sodium, n.p.o. after midnight Lines: pIVs GI Prophylaxis: Famotidine 20 mg every 12 hours Thrombo Prophylaxis: Heparin 5000 units every 8 hours Code status: DNR/DNI Plan of care discussed with attending Dr Florina Wagner MD, PGY 2 Attending Provider Attestation/Addendum I reviewed labs, imaging, EKG, home medications and prior available records. Face to face evaluation was performed by me. I have personally examined the patient and discussed assessment and plan with the IM team. I reviewed the resident note and agree with the plan with exceptions as below. Ground-level fall Left tibial fracture COPD Asthma Left lower extremity DVT on Eliquis Alcoholic liver cirrhosis Consulted orthopedic surgery Ordered left knee MRI Management of pain as needed PT evaluation Holding Eliquis in the setting of possible OR DuoNebs as needed
--- NOTE | 2024-01-30 15:37 | ECHO_ITS ---
Transthoracic Echo Report Ht (in): 64 Wt (lb): 220 Exam Location: Echo Lab Status: Emergency Reo Asset Manager: Shivani Alarcon Indications: Procedure Performed: BP: 113 / 88 HR: 94 Technical Quality: Technically difficult study MEASUREMENTS (Male / Female) Normal Values 2D ECHO LV Diastolic Diameter PLAX 4.1 cm 4.2 - 5.9 / 3.9 - 5.3 cm LV Systolic Diameter PLAX 2.9 cm IVS Diastolic Thickness 0.7 cm 0.6 - 1.0 / 0.6 - 0.9 cm LVPW Diastolic Thickness 1.1 cm 0.6 - 1.0 / 0.6 - 0.9 cm LV Relative Wall Thickness 0.4 LVOT Diameter 1.7 cm LA Volume Index 19.5 cm?/m? 16 - 28 cm?/m? DOPPLER AV Peak Velocity 136.0 cm/s AV Peak Gradient 7.4 mmHg AV Mean Gradient 4.0 mmHg AV Velocity Time Integral 21.4 cm LVOT Peak Velocity 137.0 cm/s LVOT Peak Gradient 7.5 mmHg LVOT Velocity Time Integral 29.0 cm LVOT Cardiac Index 2850.9 cm?/min?m? AV Area Cont Eq vti 3.1 cm? AV Area Cont Eq pk 2.3 cm? MV Area PHT 4.9 cm? Mitral E Point Velocity 82.9 cm/s Mitral A Point Velocity 96.5 cm/s Mitral E to A Ratio 0.9 LV E' Lateral Velocity 7.9 cm/s Mitral E to LV E' Lateral Ratio 10.4 LV E' Septal Velocity 7.3 cm/s Mitral E to LV E' Septal Ratio 11.4 TR Peak Velocity 319.0 cm/s TR Peak Gradient 40.7 mmHg PV Peak Velocity 122.0 cm/s PV Peak Gradient 6.0 mmHg FINDINGS Left Ventricle Normal left ventricular size, wall thickness, systolic function with no obvious regional wall motion abnormalities. Normal left ventricular diastolic filling pattern for age. The ejection fraction is v isually estimated at 55-60%. Right Ventricle The right ventricle is normal in size and systolic function. The estimated right ventricular systoli c pressure, 46 mmHg. 5 RAP. Left Atrium The left atrium is normal by two-dimensional, color flow and Doppler imaging with no structural abnormalities, no thrombus formation present. Right Atrium The right atrium is normal by two-dimensional imaging, color flow and Doppler imaging with no struct ural abnormalities, no thrombus formation present. Atrial Septum The interatrial septum appears normal with no evidence of a shunt. Aorta The aorta is normal by two-dimensional, color flow and Doppler interrogation. Mitral Valve The mitral valve is normal by two-dimensional, color flow and Doppler interrogation. There is no sig nificant mitral valve regurgitation, stenosis or prolapse. Aortic Valve The aortic valve is trileaflet and normal by two-dimensional, color flow and Doppler interrogation. There is no significant aortic valve regurgitation. Tricuspid Valve The tricuspid valve is normal by two-dimensional, color flow and Doppler interrogation. There is mod erate tricuspid valve regurgitation. Pulmonic Valve The pulmonic valve is not well visualized. There is no significant pulmonic valve regurgitation. Vessels The pulmonary artery appears normal. The inferior vena cava pulmonary and hepatic veins appear lauryn l. Pericardium The pericardium is normal by two-dimensional imaging. There is no significant pericardial effusion. CONCLUSIONS Indication: Cardiac clearance Normal LV size, wall thickness. Estimated EF 55-60%. Normal LV systolic function. RV size upper normal. Estimated RVSP 50 mmHg with 10 mmHg RAP. At least mild to moderate PAH Mildly dilated RA. Moderate TR. Trace MR Bruce Estrada (Electronically Signed) Final Date: 31 January 2024 21:51
--- NOTE | 2024-01-30 15:44 | EKG_ITS ---
[facility] Test Date: 2024-01-30 Pat Name: EDUARDO SINGH Department: Room: - Gender: Female Pool Player: : [id number] Requested By: Marcel Wagner Order Number: [id number] Reading MD: Marcel Wagner Measurements Intervals [place] Rate: 98 P: 45 CA: 140 QRS: -38 QRSD: 102 T: 60 QT: 378 QTc: 483 Interpretive Statements SINUS RHYTHM WITH OCCASIONAL VENTRICULAR PREMATURE COMPLEXES MARKED LEFT AXIS DEVIATION [QRS AXIS < -30] LOW QRS VOLTAGE IN PRECORDIAL LEADS [QRS DEFLECTION < 1.0 mV IN CHEST LEADS] POSSIBLE ANTERIOR MYOCARDIAL INFARCTION , OF INDETERMINATE AGE [30 ms Q WAVE IN V3/V4, OR R < 0.2 mV IN V4] MODERATE T-WAVE ABNORMALITY, CONSIDER LATERAL ISCHEMIA [-0.1+ mV T WAVE IN I/aVL/V5/V6] Compared to ECG 11/10/2022 16:44:14 Ventricular premature complex(es) now present Left-axis deviation now present T-wave abnormality now present Possible ischemia now present Sinus tachycardia no longer present Myocardial infarct finding still present /store/S0/[id number]/ecg/[id number].pdf
--- NOTE | 2024-01-30 16:20 | PC.NURSE ---
Notified provider patient has had a change in mental status, GCS 7, only responding to painful stimuli. 88/0 O2 sat 96% on 6L NC, HR 72. MD in route.
[2024-01-30] MEDS: HYDROmorphone INJ 2 MG/ML VIAL 1 MG IVP (19:17)
--- NOTE | 2024-01-30 20:04 | PC.NURSE ---
Assumed care of pt. Pt c/o 10/10 pain and being hungry. Pt given sandwich and pain medication. Tolerating well. Pt A&O x4, GCS 15, no signs of distress noted. L knee brace in place.
[2024-01-30] MEDS: FAMOTIDINE INJ 10 MG/ML VIAL 2 ML 20 MG IVP (22:34)
--- NOTE | 2024-01-30 22:39 | PD.ORTHCON ---
HPI Consult details Reason for consultation narrative: Pain left knee History of present illness: Patient went to [facility] and was navigating down stairs and the left foot caused her to trip fall injuring left knee. Past Medical History Past Medical History NEUROLOGIC: Negative Neurological Disorders, Dementia or Seizures CARDIAC: Positive Hypercholesterolemia and Hypertension; Negative Cardiac Disorders, Atrial Fibrillation, Coronary Artery Disease or Congestive Heart Failure RESPIRATORY: Positive Chronic Obstructive Pulmonary Disease (COPD), Asthma, Smoking and Tobacco Use; Negative Respiratory Disorders GASTROINTESTINAL: Negative Gastrointestinal Disorders, Cirrhosis or Celiac Disease GENITOURINARY: Positive Genitourinary Disorders (swollen left kidney); Negative Renal Disease MUSCULOSKELETAL: Positive Arthritis, Osteoporosis, Degenerative Disk Disease and Fractures; Negative Musculoskeletal Disorders, Muscular Dystrophy or Bone Cancer ENDOCRINE: Negative Diabetes Mellitus Type 1 or Diabetes Mellitus Type 2 (patient denies) HEMATOLOGIC: Positive Anemia; Negative Sickle Cell Disease PSYCHO/SOCIAL: Positive Recreational Drug Use and Depression OTHER HISTORY: Positive Blood Transfusions; Negative Down Syndrome, Developmental Delay, Blood Transfusion Reaction or Anesthesia Reactions Family History FAMILY HISTORY: Positive Family Cardiac Disorders and Family Cancer Surgical History SURGICAL: Positive Abdominal Surgery, Gastric Bypass Surgery, Lumpectomy and Section Social History SMOKING STATUS: Current every day smoker SUBSTANCE USE: methamphetamine Meds Home Medications and Allergies Home Medications ?Medication ?Instructions ?Recorded ?Confirmed ?Type albuterol sulfate 90 mcg/actuation 2 inh inhalation Q6H PRN wheeze 10/27/22 04/26/23 History aerosol inhaler aspirin 81 mg tablet,delayed 81 mg PO DAILY 10/27/22 04/26/23 History release duloxetine 60 mg capsule,delayed 60 mg PO DAILY 10/27/22 04/26/23 History release gabapentin 300 mg capsule 300 mg PO TID 10/27/22 04/26/23 History lisinopril 20 mg tablet 20 mg PO DAILY 10/27/22 04/26/23 History pantoprazole 40 mg tablet,delayed 40 mg PO QDAY 10/27/22 04/26/23 History release prazosin 1 mg capsule 1 mg PO HS 10/27/22 04/26/23 History furosemide 40 mg tablet 40 mg PO QDAY 02/12/23 04/26/23 History lactulose 10 gram/15 mL oral syrup 20 g PO BID 02/12/23 04/26/23 History levothyroxine 50 mcg capsule 50 mcg PO ACBR 02/12/23 04/26/23 History oxycodone 10 mg tablet 10 mg PO BID PRN Severe Pain 02/12/23 04/26/23 History (Scale Score 7-10) tramadol 100 mg tablet 100 mg PO TID PRN Moderate Pain 02/12/23 04/26/23 History (Scale Score 5-6) furosemide 40 mg tablet 40 mg PO QDAY 03/08/23 04/26/23 History Allergies Allergy/AdvReac Type Severity Reaction Status Date / Time Penicillins Allergy Severe Anaphylaxis Verified 03/08/23 10:20 erythromycin base AdvReac Intermediate Abdominal Verified 03/08/23 10:20 Pain lorazepam [From Ativan] AdvReac Intermediate COULDN'T Verified 03/08/23 10:20 TALK Exam Vital Signs Temp Pulse Resp BP Pulse Ox O2 Del Method O2 Flow Rate 98 F 95 16 115/84 98 Nasal Cannula 2 01/30/24 21:17 01/30/24 21:17 01/30/24 21:17 01/30/24 21:17 01/30/24 21:17 01/30/24 21:17 01/30/24 21:17 Vital signs stable Narrative Exam Physical examination shows swelling left knee. Interestingly very little pain proximal left knee medial aspect. Minimal pain joint line but exquisite pain proximal medial tibial metaphysis. Dramatic left foot drop present for a long time Results - Ortho Labs 01/30/24 06:59 01/30/24 06:59 Labs: Short CBC 01/30/24 Range/Units 06:59 WBC 8.6 (3.6-11.0) Thou/mm3 Hgb 10.0 L (12.0-16.0) g/dL Hct 32.3 L (36.0-46.0) % Plt Count 175 (140-440) Thou/mm3 BMP 01/30/24 06:59 Sodium 137 Potassium 3.6 Chloride 105 Carbon Dioxide 26.7 BUN 10 Creatinine 0.7 Glucose 127 H Calcium 8.5 Liver Function 01/30/24 Range/Units 06:59 Total Bilirubin 0.6 (0.3-1.2) mg/dL AST 18 (0-34) U/L ALT 18 (10-49) U/L Alkaline Phosphatase 165 H (46-116) U/L Albumin 3.5 (3.4-4.8) gm/dL Hemoglobin 10 Assessment & Plan Additional Assessment Additional comments: Medial tibial plateau fracture with minimal displacement if at all. Does appear to have some medial compartment arthritis very significant COPD. Still smokes. I told her stopping smoking will certainly get this to heal faster. She has great lilo in [place] and we prayed.. I would like to get an MRI scan left knee in a.m. significant COPD has not worked for 20 years. Is on SSI. Last tomorrow if she has handicap parking. Anytime she goes anywhere she does not in wheelchair. Very nice pleasant personality. She said she wished she had just wished she had gone home when she saw the stairs. Plan Want Ophthalmologist [facility] orthotics to come over and measure her for fracture brace. Weight-bear to tolerance must use left foot and ankle AFO
[2024-01-30] MEDS: MORPHINE SULF INJ 10 MG/ML VIAL 2 MG IVP (22:41)
--- NOTE | 2024-01-30 22:43 | ESCONSULT_ITS ---
HPI Consult details History of present illness: Patient went to [facility] and was navigating down stairs and the left foot caused her to trip fall injuring left knee. Past Medical History Past Medical History NEUROLOGIC: Negative Neurological Disorders, Dementia or Seizures CARDIAC: Positive Hypercholesterolemia and Hypertension; Negative Cardiac Disorders, Atrial Fibrillation, Coronary Artery Disease or Congestive Heart Failure RESPIRATORY: Positive Chronic Obstructive Pulmonary Disease (COPD), Asthma, Smoking and Tobacco Use; Negative Respiratory Disorders GASTROINTESTINAL: Negative Gastrointestinal Disorders, Cirrhosis or Celiac Disease GENITOURINARY: Positive Genitourinary Disorders (swollen left kidney); Negative Renal Disease MUSCULOSKELETAL: Positive Arthritis, Osteoporosis, Degenerative Disk Disease and Fractures; Negative Musculoskeletal Disorders, Muscular Dystrophy or Bone Cancer ENDOCRINE: Negative Diabetes Mellitus Type 1 or Diabetes Mellitus Type 2 (patient denies) HEMATOLOGIC: Positive Anemia; Negative Sickle Cell Disease PSYCHO/SOCIAL: Positive Recreational Drug Use and Depression OTHER HISTORY: Positive Blood Transfusions; Negative Down Syndrome, Developmental Delay, Blood Transfusion Reaction or Anesthesia Reactions Family History FAMILY HISTORY: Positive Family Cardiac Disorders and Family Cancer Surgical History SURGICAL: Positive Abdominal Surgery, Gastric Bypass Surgery, Lumpectomy and Section Social History SMOKING STATUS: Current every day smoker SUBSTANCE USE: methamphetamine Meds Home Medications and Allergies Home Medications ?Medication ?Instructions ?Recorded ?Confirmed ?Type albuterol sulfate 90 mcg/actuation 2 inh inhalation Q6H PRN wheeze 10/27/22 04/26/23 History aerosol inhaler aspirin 81 mg tablet,delayed 81 mg PO DAILY 10/27/22 04/26/23 History release duloxetine 60 mg capsule,delayed 60 mg PO DAILY 10/27/22 04/26/23 History release gabapentin 300 mg capsule 300 mg PO TID 10/27/22 04/26/23 History lisinopril 20 mg tablet 20 mg PO DAILY 10/27/22 04/26/23 History pantoprazole 40 mg tablet,delayed 40 mg PO QDAY 10/27/22 04/26/23 History release prazosin 1 mg capsule 1 mg PO HS 10/27/22 04/26/23 History furosemide 40 mg tablet 40 mg PO QDAY 02/12/23 04/26/23 History lactulose 10 gram/15 mL oral syrup 20 g PO BID 02/12/23 04/26/23 History levothyroxine 50 mcg capsule 50 mcg PO ACBR 02/12/23 04/26/23 History oxycodone 10 mg tablet 10 mg PO BID PRN Severe Pain 02/12/23 04/26/23 History (Scale Score 7-10) tramadol 100 mg tablet 100 mg PO TID PRN Moderate Pain 02/12/23 04/26/23 History (Scale Score 5-6) furosemide 40 mg tablet 40 mg PO QDAY 03/08/23 04/26/23 History Allergies Allergy/AdvReac Type Severity Reaction Status Date / Time Penicillins Allergy Severe Anaphylaxis Verified 03/08/23 10:20 erythromycin base AdvReac Intermediate Abdominal Verified 03/08/23 10:20 Pain lorazepam [From Ativan] AdvReac Intermediate COULDN'T Verified 03/08/23 10:20 TALK Exam Vital Signs Temp Pulse Resp BP Pulse Ox O2 Del Method O2 Flow Rate 98 F 95 16 115/84 98 Nasal Cannula 2 01/30/24 21:17 01/30/24 21:17 01/30/24 21:17 01/30/24 21:17 01/30/24 21:17 01/30/24 21:17 01/30/24 21:17 Vital signs blood pressure 115/84 Narrative Exam Pain swelling left knee. Pain over medial tibial metaphysis. Traumatic foot drop left lower extremity times number of years. No pain left hip no pain left ankle foot Results - Ortho Labs 01/30/24 06:59 01/30/24 06:59 Labs: Short CBC 01/30/24 Range/Units 06:59 WBC 8.6 (3.6-11.0) Thou/mm3 Hgb 10.0 L (12.0-16.0) g/dL Hct 32.3 L (36.0-46.0) % Plt Count 175 (140-440) Thou/mm3 [facility] 01/30/24 06:59 Sodium 137 Potassium 3.6 Chloride 105 Carbon Dioxide 26.7 BUN 10 Creatinine 0.7 Glucose 127 H Calcium 8.5 Liver Function 01/30/24 Range/Units 06:59 Total Bilirubin 0.6 (0.3-1.2) mg/dL AST 18 (0-34) U/L ALT 18 (10-49) U/L Alkaline Phosphatase 165 H (46-116) U/L Albumin 3.5 (3.4-4.8) gm/dL Hemoglobin 10 Assessment & Plan Additional Assessment Additional comments: Medial tibial plateau fracture minimal displacement if any. 1 MRI scan left knee. Want to get her in fracture brace 0 to 30 degrees knee flexion Plan MRI scan left knee in a.m.
--- NOTE | 2024-01-30 22:46 | PC.NURSE ---
patient does not have list of medication with her, educated patient to contact Babs, her process tank tender to bring her list of medication for med rec. Patient verbalizes understanding.
[2024-01-31] VITALS (7 sets, daily range): BP systolic 110–134; BP diastolic 62–88; PULSE 68–111; RESP 17–24; TEMP 36–36.6; O2SAT 91–99; BMI 11.0
--- NOTE | 2024-01-31 | XR_ITS ---
Exam: MRI knee without contrast, left Date and time of exam: January 31, 2024 1204 hours INDICATIONS: Twisting injury to the knee 5 days ago, fractures proximal tibia through the medial tibial plateau and intercondylar spine region on CT knee study January 30, 2024 Technique: Multiple axial, coronal, and sagittal sections on the knee have been obtained. T2-Weighted sagittal, fat-suppressed images, TR 3,500, TE 62, T2 weighted coronal fat-saturated images, TR 3,500, TE 62 Proton density sagittal sections, TR 1800, TE 31. T-1 weighted coronal images, TR 524, TE 13.0 Findings: Medial meniscus anterior horn intact. Medial meniscus, body is intact. Posterior horn medial meniscus intact. Lateral meniscus anterior horn is intact Lateral meniscus, body is intact Posterior horn lateral meniscus is intact Anterior cruciate ligament appears intact. Posterior cruciate ligament appears intact. Knee effusion is large. Quadriceps and patellar tendons appear intact. There is no evidence of tendinosis. Inflammatory change or fracture of Hoffa's fat pad is not seen. Medial patellar facet demonstrates moderate thinning. Lateral patellar facet cartilage demonstrates moderate thinning. Trochlear cartilage demonstrates moderate thinning. Marrow signal abnormal, fracture lines through the proximal tibia in the medial tibial metaphyseal region extending to the medial tibial plateau, 2 mm depression of the medial tibial plateau Fracture lines extending to the medial margin of the intercondylar spine. Medial collateral ligament appears intact. Meniscocapsular separation body the medial meniscus Illiotibial band and fibular collateral ligament are intact. Biceps femoris tendons appear intact. Medial femoral condylar articular cartilage demonstrates moderate thinning. Lateral femoral condylar articular cartilage demonstratesmoderate thinning. Tibial plateau cartilage demonstrates moderate thinning. Impression: The entire study is severely degraded by patient motion Complex comminuted fractures proximal medial tibial metaphyseal region extending to the medial tibial plateau, mild depression medial tibial plateau Menisci and cruciate ligaments appear grossly intact Meniscocapsular separation body the medial meniscus
[2024-01-31 05:21] LABS: Basophils # (Auto) 0.1 Thou/mm3 (0.0-0.2); Basophils % (Auto) 1 % (0-2.5); Eosinophils # (Auto) 0.2 Thou/mm3 (0.0-0.5); Eosinophils % (Auto) 3 % (0-10); Hemoglobin 9.1 g/dL (12.0-16.0); Immature Granulocytes % (Auto) 1 % (0-0); Immature Granulocytes Auto 0.07 Thou/mm3 (0.00-0.00); Lymphocytes # (Auto) 1.7 Thou/mm3 (1.0-4.8); Lymphocytes % (Auto) 30 % (10-50); Mean Corpuscular HGB Conc 30.3 g/dl (31.0-37.0); Mean Corpuscular Hemoglobin 27.2 pg (25.0-35.0); Mean Corpuscular Volume 90 fL (80-100); Monocytes # (Auto) 0.8 Thou/mm3 (0.0-0.8); Monocytes % (Auto) 14 % (0-12); Neutrophils % (Auto) 52 % (37-80); Nucleated Red Blood Cell # 0.02 Thou/mm3 (0.00-0.00); Nucleated Red Blood Cell % 0 /100 WBC (0); Platelet Count 175 Thou/mm3 (140-440); RDW Standard Deviation 62.8 fL (36.4-46.3); Red Blood Count 3.35 Miln/mm3 (4.00-5.20); White Blood Count 5.7 Thou/mm3 (3.6-11.0)
[2024-01-31 05:34] LABS: INR 1.1 (0.9-1.3); Prothrombin Time 11.7 Seconds (9.0-12.2)
[2024-01-31] MEDS: MORPHINE SULF INJ 10 MG/ML VIAL 2 MG IVP ×3 (05:51→20:32)
[2024-01-31 05:59] LABS: Anion Gap 5 (7-16); BUN/Creatinine Ratio 13 Ratio (12-20); Blood Urea Nitrogen 8 mg/dL (9-23); Calcium 8.6 mg/dL (8.3-10.6); Carbon Dioxide 29.6 mMol/L (20.0-31.0); Chloride 106 mMol/L (98-107); Cholesterol 96 mg/dL (132-200); Creatinine (Component) 0.6 mg/dL (0.6-1.3); Estimated Creatinine Clearance 128.5 mL/min (>60); Glucose 99 mg/dL (74-106); HDL Cholesterol 32 mg/dL (40-60); LDL Cholesterol,Calculated 46 mg/dL (0-130); Magnesium 1.8 mg/dL (1.6-2.6); Osmolality,Calculated 279 (275-295); Potassium 3.7 mMol/L (3.4-5.1); Sodium 141 mMol/L (136-145); Triglycerides 90 mg/dL (30-150); eGFR > 60 See Note
[2024-01-31 06:02] LABS: Glucose Estimated Average 111 mg/dL (80-131); Hemoglobin A1C 5.5 % Hgb (4.8-6.0)
[2024-01-31] MEDS: FAMOTIDINE INJ 10 MG/ML VIAL 2 ML 20 MG IVP ×2 (09:44→20:33)
[2024-01-31] MEDS: HYDROmorphone INJ 2 MG/ML VIAL 1 MG IVP ×2 (10:56→16:02)
--- NOTE | 2024-01-31 11:14 | PC.SS ---
Patient is alert/oriented. She resides alone. Patient states she's independent with ADL's. Patient is currently on 02. However, no respiratory devices at home. Patient states she uses a wheelchair as needed at home. She's been having back pain and follows at pain management clinic in [place] for cortisone shots in back. Patient states she has IHSS and her worker is Babs and is also her point of contact and alt medical decision maker. Patient's daughter, Anna, is her secondary point of contact. Patient states she already verbalized this with both. Patient pending MRI/echo PCP: COURTNEY Vázquez @ [facility], last appt. 1 month ago- Patient pharmac: [facility] transportation: family d/c plan: home with . Patient prefers [facility] as she's had them before in past.
[2024-01-31] MEDS: HYDROcodone/APAP 10/325 TAB PO (13:07)
--- NOTE | 2024-01-31 13:09 | CHAP ---
09:30 AM Visited by spiritual care volunteer Provided prayer for Patient.
--- NOTE | 2024-01-31 15:51 | ESPR_ITS ---
Documentation for date of: 01/31/24 Subjective Subjective Interval history: Patient was seen and examined bedside. Complaining of pain at the site of fracture. Had history of unprovoked DVT, Eliquis is held for now in view of possible surgery by Dr. Gonzalez, waiting for his recommendations. MRI was done and showed medial tibial comminuted fracture Exam Vital Signs Temp Pulse Resp BP Pulse Ox O2 Del Method O2 Flow Rate 96.8 F 88 17 119/65 92 L Room Air 2 01/31/24 12:00 01/31/24 12:00 01/31/24 12:00 01/31/24 12:00 01/31/24 12:00 01/31/24 12:00 01/31/24 08:00 Narrative Exam General: Awake. HEENT: Normocephalic, atraumatic, mucous membranes moist. Heart: Regular rate and rhythm, no murmurs. Lungs: Clear to auscultation with no wheezing or crackles. Abdomen: Soft, nondistended, nontender, positive bowel sounds. ?No guarding or rebound tenderness. Neurologic: Alert and oriented x3, no gross neurological deficit, and patient able to move all 4 extremities. Extremities: No edema. left leg in brace with severe tenderness at the site of fracture. Skin: No rash or ecchymoses. Objective Labs 02/01/24 05:19 02/01/24 05:19 Labs: Laboratory Results - last 24 hr 01/31/24 04:24 WBC 5.7 RBC 3.35 L Hgb 9.1 L Hct 30.0 L MCV 90 MCH 27.2 MCHC 30.3 L RDW Std Deviation 62.8 H Plt Count 175 Neut % (Auto) 52 Lymph % (Auto) 30 [place] % (Auto) 14 H Eos % (Auto) 3 Baso % (Auto) 1 Neut # (Auto) 3.0 Lymph # (Auto) 1.7 [place] # (Auto) 0.8 Eos # (Auto) 0.2 Baso # (Auto) 0.1 Immature Gran # (Auto) 0.07 H Absolute Nucleated RBC 0.02 H Immature Gran % 1 H Nucleated RBC % 0 PT 11.7 INR 1.1 Sodium 141 Potassium 3.7 Chloride 106 Carbon Dioxide 29.6 Anion Gap 5 L BUN 8 L Creatinine 0.6 Estim Creat Clear Calc 128.5 eGFR > 60 BUN/Creatinine Ratio [address] Glu mg/dL 111 Hemoglobin A1c 5.5 Calculated Osmolality 279 Calcium 8.6 Magnesium 1.8 Triglycerides 90 Cholesterol 96 L LDL Cholesterol, Calc 46 HDL Cholesterol 32 L Cholesterol/HDL Ratio 3.0 L TSH 2.00 Quality Measures Quality Measures none Assessment & Plan Assessment Current Active Medications: Generic Name Dose Route Start Last Admin Trade Name Freq PRN Reason Stop Dose Admin Acetaminophen 650 mg 01/30/24 15:35 Acetaminophen 325 Mg Tablet PO 02/29/24 15:34 Q6H PRN Fever >100.1 Hydrocodone Bitart/Acetaminophen 1 tab 01/30/24 15:35 01/31/24 13:07 Hydrocodone/Apap 10/325 Tab PO 02/04/24 15:34 1 tab Q4H PRN Administration PAIN SCALE 4-6 (Moderate Famotidine 20 mg 01/30/24 21:00 01/31/24 09:44 Famotidine Inj 10 Mg/Ml Vial 2 Ml IVP 02/29/24 20:59 20 mg Q12HR DA Administration Heparin Sodium (Porcine) 5,000 unit 01/30/24 15:45 01/31/24 12:59 Heparin Sod Inj 5000 Unit/Ml Vial SC 02/13/24 15:44 Not Given Q8HR DA Hydromorphone HCl 1 mg 01/30/24 15:35 01/31/24 10:56 Hydromorphone Inj 2 Mg/Ml Vial IVP 02/04/24 15:34 1 mg Q3H PRN Administration BREAKTHROUGH PAIN Morphine Sulfate 2 mg 01/30/24 15:35 01/31/24 09:44 Morphine Sulf Inj 10 Mg/Ml Vial IVP 02/04/24 15:34 2 mg Q4H PRN Administration PAIN SCALE 7-10 (Severe Ondansetron HCl 4 mg 01/30/24 15:35 Ondansetron Inj 2 Mg/Ml Inj 2 Ml IV 02/29/24 15:34 Q6H PRN NAUSEA OR VOMITING Protocol Plan Ms Caban is a 62-year-old woman with past medical history of DVT on Eliquis, alcoholic liver cirrhosis, foot drop after a left fibular fracture, chronic radicular back pain 2/2 L3-L5 stenosis, hypothyroidism, depression, bilateral knee osteoarthritis, who presented to the ED on 01/30/2024 after a ground-level fall and admitted for medial tibial fracture 1. LT knee pain 2. Acute non displaced fracture of the LT proximal tibia 3. Ground level mechanical fall In the setting of 4. Bilateral knee osteoarthritis 5. Chronic left foot drop 6. Hx of Lumbar spinal stenosis L3-L5 7. Chronic back pain Patient was at a friend's house and fell down the stairs when she lost her balance due to a chronic left foot drop. She denies any syncope, or loss of consciousness before or after the event. She denies any hospitalization for falls in the past. At this time, patient is in 10/10 pain, unable to bend her left knee and since the incident. - Hip x-ray : negative for any left hip fracture, pelvis appears intact. - X-ray of the left tibia-fibula region : incomplete study. - X-ray of the left knee : severe osteopenia but no acute fracture. - Head CT : negative for any acute findings. - Hip CT without contrast : soft tissue contusion lateral to the left hip only. - CT scan of the knee : acute fracture of the proximal tibia through the medial tibial plateau region and intercondylar spine, without any major displacement noted. - She states that her foot drop has been ongoing for many years, possibly due to her back issues, for which she now follows up with Dr Arechiga outpatient. - MRI left knee - Complex comminuted fractures proximal medial tibial metaphyseal region extending to the medial tibial plateau, mild depression medial tibial plateau Plan: - Held the left lower extremity in brace - Orthopedic surgeon Dr. Gonzalez is consulted, did not recommend any surgery for now. - PRN Acetaminophen 650 mg to 6 hours for fever >100.1. - Started on regular diet for now. - Pain control: Tylenol (1-3) + [place] 10/325 q4H (4-6) + IV Morphine 2 mg (7-10) - PRN Dilaudid 1mg q3H for breakthrough pain 8. Hx of unprovoked recurrent episodes of DVT, on DOAC 9. Sinus tachycardia, resolved - Vitals showed sinus tachycardia HR 103 bpm, BP wnl. - 11/13/2022 US doppler of LLE : non-occlusive thrombus in the superficial left greater saphenous vein. CTA chest was negative for PE - Patient was started on Eliquis 5 mg p.o. twice daily since 11/13/2022. also stated that her daughter also had h/o DVT and is on eliquis, likely familial - 2023 US duplex of the LLE : negative for DVT, with normal color-flow and spectral analysis. Plan: - Left lower extremity ultrasound negative for DVT at this time. DVT prophylaxis with SC heparin 5000 units every 8 hours - Held Eliquis as possible surgical intervention by orthopedics for fracture, will confirm with Dr. Gonzalez before restarting the eliquis - Follow-up orthopedic recommendations, will resume home Eliquis if no surgery planned within 24 hours. - EKG ordered, sinus tachy. Tachycardia likely in the setting of excruciating pain. 10. History of alcoholic liver cirrhosis 11. Hx of LGIB 2/2 diverticulosis 12. Normocytic anemia - Initial body workup was remarkable for normocytic anemia Hb 10 MCV 88 - Last colonoscopy in October 2022 confirming severe diverticulosis of the descending colon - On DOAC at home 5 mg Eliquis twice daily for DVT history Plan: - Currently on subcutaneous heparin, Eliquis on hold - Patient denies any recent episodes of GI bleed or hospitalizations for the same. - Resume home Eliquis before discharge, and monitor closely for tolerance - Coag panel wnl, no other abnormalities. Liver disease appears to be compensated. 13. Depression 14. Hypothyroidism 15. Obesity - Patient was discharged on levothyroxine 50 mcg daily in October 2022 - No recent prescriptions for levothyroxine on Med rec - On duloxetine 60 mg daily at home - BMI 37.8. TSH, HbA1c - WNL Plan: - Pending final med rec. Questionable history of hypertension, no antihypertensives noted on med rec. - Resumed duloxetine 30 mg twice daily - Patient will benefit from outpatient GLP-1 therapy for weight loss Health maintenance: Disposition: Med surg for LT tibial fracture Diet: Regular diet Lines: pIVs GI Prophylaxis: Famotidine 20 mg every 12 hours Thrombo Prophylaxis: Heparin 5000 units every 8 hours Code status: DNR/DNI Patient plan of care was discussed with the attending physician, Dr. Heaton and senior resident Dr. Kevin Ly, PGY1 Attending Provider Attestation/Addendum I reviewed labs, imaging, EKG, home medications and prior available records. Face to face evaluation was performed by me. I have personally examined the patient and discussed assessment and plan with the IM team. I reviewed the resident note and agree with the plan with exceptions as below. Ground-level fall Left tibial fracture COPD Asthma Left lower extremity DVT on Eliquis Alcoholic liver cirrhosis Consulted orthopedic surgery: Recommended [facility]w[employer] Tender orthotics to come over/fracture brace in addition to weight-bear to tolerance and use of left foot ankle orthosis. Ordered left knee MRI Management of pain as needed PT evaluation Holding Eliquis in the setting of possible OR DuoNebs as needed
--- NOTE | 2024-01-31 16:34 | PC.NURSE ---
Spoke with Babs Odell, she states she helps the patient daily and helps her with her medications, however she does not recall the names and dosages of everything the patient takes. She does have transportation and is willing to obtain the medications from the patients apartment this evening and bring them so we can reconcile.
[2024-01-31] MEDS: ALBUTEROL/IPRATROPIUM (Duoneb) RT SOL 3 ML NEBU INH (21:24)
--- NOTE | 2024-01-31 21:24 | PC.NURSE ---
Dr. Gonzalez at bedside talking to pt.
--- NOTE | 2024-01-31 22:14 | PD.ORTHCONPN ---
Subjective Subjective Brief History: Patient went to [facility] and was navigating down stairs and the left foot caused her to trip fall injuring left knee. Narrative: Pain left knee medial tibial Exam Vital Signs Temp Pulse Resp BP Pulse Ox O2 Del Method O2 Flow Rate 96.8 F 105 H 18 110/66 99 Room Air 2 01/31/24 16:00 01/31/24 21:24 01/31/24 21:24 01/31/24 16:00 01/31/24 21:24 01/31/24 16:00 01/31/24 08:00 Pulse 105, blood pressure 110/66 Narrative Exam Persistent pain swelling left knee Objective - Ortho Labs 01/31/24 04:24 01/31/24 04:24 Labs: Laboratory Results - last 24 hr 01/31/24 04:24 WBC 5.7 RBC 3.35 L Hgb 9.1 L Hct 30.0 L MCV 90 MCH 27.2 MCHC 30.3 L RDW Std Deviation 62.8 H Plt Count 175 Neut % (Auto) 52 Lymph % (Auto) 30 [place] % (Auto) 14 H Eos % (Auto) 3 Baso % (Auto) 1 Neut # (Auto) 3.0 Lymph # (Auto) 1.7 [place] # (Auto) 0.8 Eos # (Auto) 0.2 Baso # (Auto) 0.1 Immature Gran # (Auto) 0.07 H Absolute Nucleated RBC 0.02 H Immature Gran % 1 H Nucleated RBC % 0 PT 11.7 INR 1.1 Sodium 141 Potassium 3.7 Chloride 106 Carbon Dioxide 29.6 Anion Gap 5 L BUN 8 L Creatinine 0.6 Estim Creat Clear Calc 128.5 eGFR > 60 BUN/Creatinine Ratio [address] Glu mg/dL 111 Hemoglobin A1c 5.5 Calculated Osmolality 279 Calcium 8.6 Magnesium 1.8 Triglycerides 90 Cholesterol 96 L LDL Cholesterol, Calc 46 HDL Cholesterol 32 L Cholesterol/HDL Ratio 3.0 L TSH 2.00 Hemoglobin 9.1. Assessment & Plan Assessment Additional comments: MRI send shows comminuted medial tibial plateau fracture fortunately at this point with no significant displacement. Plan Patient is a wheelchair ambulator most of the time she transfers bed to wheelchair wheelchair to toilet wheelchair to car. [facility]. She said she never ambulated without somebody at her side. She said with that help she could walk the facility. Her ambulation has been very very limited since discharge. Severe COPD. Would like to get Dr. Arechiga or Dr. Gross comment. She is not real keen on operative intervention. I think the risk would be huge. She has smoked up to the time of admission. Personally I would like to see a treated nonoperatively Documentation for date of: 01/31/24
[2024-01-31] MEDS: HEPARIN SOD INJ 5000 UNIT/ML VIAL SC (22:46)
[2024-02-01] VITALS (9 sets, daily range): BP systolic 111–128; BP diastolic 60–89; PULSE 72–104; RESP 18–20; TEMP 36.1–36.8; O2SAT 92–100
[2024-02-01] MEDS: HYDROmorphone INJ 2 MG/ML VIAL 1 MG IVP ×3 (00:34→18:06)
[2024-02-01] MEDS: HEPARIN SOD INJ 5000 UNIT/ML VIAL SC ×3 (05:31→20:59)
[2024-02-01] MEDS: MORPHINE SULF INJ 10 MG/ML VIAL 2 MG IVP ×3 (05:38→20:58)
[2024-02-01 05:59] LABS: Basophils % (Auto) 1 % (0-2.5); Eosinophils # (Auto) 0.1 Thou/mm3 (0.0-0.5); Eosinophils % (Auto) 2 % (0-10); Hematocrit 32.8 % (36.0-46.0); Hemoglobin 9.8 g/dL (12.0-16.0); Immature Granulocytes % (Auto) 1 % (0-0); Immature Granulocytes Auto 0.06 Thou/mm3 (0.00-0.00); Lymphocytes # (Auto) 1.9 Thou/mm3 (1.0-4.8); Lymphocytes % (Auto) 32 % (10-50); Mean Corpuscular HGB Conc 29.9 g/dl (31.0-37.0); Mean Corpuscular Hemoglobin 27.3 pg (25.0-35.0); Mean Corpuscular Volume 91 fL (80-100); Monocytes # (Auto) 0.8 Thou/mm3 (0.0-0.8); Monocytes % (Auto) 13 % (0-12); Neutrophils % (Auto) 51 % (37-80); Nucleated Red Blood Cell # 0.02 Thou/mm3 (0.00-0.00); Nucleated Red Blood Cell % 0 /100 WBC (0); Platelet Count 192 Thou/mm3 (140-440); RDW Standard Deviation 68.3 fL (36.4-46.3); Red Blood Count 3.59 Miln/mm3 (4.00-5.20); White Blood Count 5.8 Thou/mm3 (3.6-11.0)
[2024-02-01 06:22] LABS: Anion Gap 5 (7-16); BUN/Creatinine Ratio 13 Ratio (12-20); Blood Urea Nitrogen 8 mg/dL (9-23); Calcium 9.1 mg/dL (8.3-10.6); Carbon Dioxide 29.5 mMol/L (20.0-31.0); Chloride 107 mMol/L (98-107); Creatinine (Component) 0.6 mg/dL (0.6-1.3); Estimated Creatinine Clearance 128.5 mL/min (>60); Glucose 110 mg/dL (74-106); Osmolality,Calculated 280 (275-295); Potassium 3.7 mMol/L (3.4-5.1); Sodium 141 mMol/L (136-145); eGFR > 60 See Note
[2024-02-01] MEDS: LEVALBUTEROL RT 1.25 MG/0.5 ML NEBU INH (09:03)
[2024-02-01] MEDS: SODIUM CHLORIDE RT SOL 0.9% 3 ML NEBU INH (09:03)
[2024-02-01] MEDS: FAMOTIDINE INJ 10 MG/ML VIAL 2 ML 20 MG IVP ×2 (09:21→20:58)
--- NOTE | 2024-02-01 09:40 | CHAP ---
Prayed with patient and gave encouragement.
--- NOTE | 2024-02-01 11:59 | ESPR_ITS ---
<Statement entered by Rafal Brown MD - 02/01/24 15:36> Patient was seen and examined by me personally. I agree with most of the assessment and plan as discussed with the help desk intern physician, and my attending, Dr. Heaton. Vitals, labs reviewed. Pending ortho recs. Continue pain control. Rafal Brown MD, PGY-3 Documentation for date of: 02/01/24 Subjective Subjective Interval history: Patient was seen and examined bedside. Overnight patient had wheeze and received a breathing treatment for it. Dr. Gonzalez saw the patient yesterday and after reviewing MRI, as per chart review reported that he wants to discuss with Dr. Arechiga or Dr. Gross about the patient's condition and decide the plan of management. As of now, Dr. Gonzalez did not recommend any surgery Exam Vital Signs Temp Pulse Resp BP Pulse Ox O2 Del Method O2 Flow Rate 97.6 F 90 18 122/60 100 Room Air 2 02/01/24 11:58 02/01/24 11:58 02/01/24 11:58 02/01/24 11:58 02/01/24 11:58 02/01/24 11:58 02/01/24 04:00 Narrative Exam General: Awake. morbidly obese HEENT: Normocephalic, atraumatic, mucous membranes moist. Heart: Regular rate and rhythm, no murmurs. Lungs: Clear to auscultation with no wheezing or crackles. Abdomen: Soft, nondistended, nontender, positive bowel sounds. ?No guarding or rebound tenderness. Neurologic: Alert and oriented x3, no gross neurological deficit, and patient able to move all 4 extremities. Extremities: No edema. severe tenderness and mild swelling noted at the site of fracture. Skin: No rash or ecchymoses. Objective Labs 02/02/24 04:31 02/02/24 04:31 Labs: Laboratory Results - last 24 hr 02/01/24 05:19 WBC 5.8 RBC 3.59 L Hgb 9.8 L Hct 32.8 L MCV 91 MCH 27.3 MCHC 29.9 L RDW Std Deviation 68.3 H Plt Count 192 Neut % (Auto) 51 Lymph % (Auto) 32 [place] % (Auto) 13 H Eos % (Auto) 2 Baso % (Auto) 1 Neut # (Auto) 3.0 Lymph # (Auto) 1.9 [place] # (Auto) 0.8 Eos # (Auto) 0.1 Baso # (Auto) 0.0 Immature Gran # (Auto) 0.06 H Absolute Nucleated RBC 0.02 H Immature Gran % 1 H Nucleated RBC % 0 Sodium 141 Potassium 3.7 Chloride 107 Carbon Dioxide 29.5 Anion Gap 5 L BUN 8 L Creatinine 0.6 Estim Creat Clear Calc 128.5 eGFR > 60 BUN/Creatinine Ratio 13 Glucose 110 H Calculated Osmolality 280 Calcium 9.1 Quality Measures Quality Measures none Assessment & Plan Assessment Current Active Medications: Generic Name Dose Route Start Last Admin Trade Name Freq PRN Reason Stop Dose Admin Acetaminophen 650 mg 01/30/24 15:35 Acetaminophen 325 Mg Tablet PO 02/29/24 15:34 Q6H PRN Fever >100.1 Hydrocodone Bitart/Acetaminophen 1 tab 01/30/24 15:35 01/31/24 13:07 Hydrocodone/Apap 10/325 Tab PO 02/04/24 15:34 1 tab Q4H PRN Administration PAIN SCALE 4-6 (Moderate Famotidine 20 mg 01/30/24 21:00 02/01/24 09:21 Famotidine Inj 10 Mg/Ml Vial 2 Ml IVP 02/29/24 20:59 20 mg Q12HR DA Administration Heparin Sodium (Porcine) 5,000 unit 01/30/24 15:45 02/01/24 05:31 Heparin Sod Inj 5000 Unit/Ml Vial SC 02/13/24 15:44 5,000 unit Q8HR DA Administration Hydromorphone HCl 1 mg 01/30/24 15:35 02/01/24 09:20 Hydromorphone Inj 2 Mg/Ml Vial IVP 02/04/24 15:34 1 mg Q3H PRN Administration BREAKTHROUGH PAIN Levalbuterol HCl 1.25 mg 02/01/24 09:08 Levalbuterol Rt 1.25 Mg/0.5 Ml Nebu INH 03/02/24 08:14 Q8HRRT PRN WHEEZING Morphine Sulfate 2 mg 01/30/24 15:35 02/01/24 05:38 Morphine Sulf Inj 10 Mg/Ml Vial IVP 02/04/24 15:34 2 mg Q4H PRN Administration PAIN SCALE 7-10 (Severe Ondansetron HCl 4 mg 01/30/24 15:35 Ondansetron Inj 2 Mg/Ml Inj 2 Ml IV 02/29/24 15:34 Q6H PRN NAUSEA OR VOMITING Protocol Sodium Chloride 3 ml 02/01/24 08:12 02/01/24 09:03 Sodium Chloride Rt [place] 0.9% 3 Ml Nebu INH 03/02/24 08:11 3 ml PRN PRN Administration SOLN Plan Ms Caban is a 62-year-old woman with past medical history of DVT on Eliquis, alcoholic liver cirrhosis, foot drop after a left fibular fracture, chronic radicular back pain 2/2 L3-L5 stenosis, hypothyroidism, depression, bilateral knee osteoarthritis, who presented to the ED on 01/30/2024 after a ground-level fall and admitted for medial tibial fracture 1. LT knee pain 2. Acute non displaced fracture of the LT proximal tibia 3. Ground level mechanical fall In the setting of 4. Bilateral knee osteoarthritis 5. Chronic left foot drop 6. Hx of Lumbar spinal stenosis L3-L5 7. Chronic back pain Patient was at a friend's house and fell down the stairs when she lost her balance due to a chronic left foot drop. She denies any syncope, or loss of consciousness before or after the event. She denies any hospitalization for falls in the past. At this time, patient is in 10/10 pain, unable to bend her left knee and since the incident. - Hip x-ray : negative for any left hip fracture, pelvis appears intact. - X-ray of the left tibia-fibula region : incomplete study. - X-ray of the left knee : severe osteopenia but no acute fracture. - Head CT : negative for any acute findings. - Hip CT without contrast : soft tissue contusion lateral to the left hip only. - CT scan of the knee : acute fracture of the proximal tibia through the medial tibial plateau region and intercondylar spine, without any major displacement noted. - She states that her foot drop has been ongoing for many years, possibly due to her back issues, for which she now follows up with Dr Arechiga outpatient. - MRI left knee - Complex comminuted fractures proximal medial tibial metaphyseal region extending to the medial tibial plateau, mild depression medial tibial plateau Plan: - Orthopedic surgeon Dr. Gonzalez is consulted, did not recommend any surgery for now. - PRN Acetaminophen 650 mg to 6 hours for fever >100.1. - Started on regular diet for now. - Pain control: Tylenol (1-3) + [place] 10/325 q4H (4-6) + IV Morphine 2 mg (7-10) - PRN Dilaudid 1mg q3H for breakthrough pain 8. Hx of unprovoked recurrent episodes of DVT, on DOAC 9. Sinus tachycardia, resolved - Vitals showed sinus tachycardia HR 103 bpm, BP wnl. - 11/13/2022 US doppler of LLE : non-occlusive thrombus in the superficial left greater saphenous vein. CTA chest was negative for PE - Patient was started on Eliquis 5 mg p.o. twice daily since 11/13/2022. also stated that her daughter also had h/o DVT and is on eliquis, likely familial - 2023 US duplex of the LLE : negative for DVT, with normal color-flow and spectral analysis. Plan: - Left lower extremity ultrasound negative for DVT at this time. DVT prophylaxis with SC heparin 5000 units every 8 hours - Held Eliquis as possible surgical intervention by orthopedics for fracture, will confirm with Dr. Gonzalez before restarting the eliquis - Follow-up orthopedic recommendations, will resume home Eliquis if no surgery planned within 24 hours. - EKG ordered, sinus tachy. Tachycardia likely in the setting of excruciating pain. 10. History of alcoholic liver cirrhosis 11. Hx of LGIB 2/2 diverticulosis 12. Normocytic anemia - Initial body workup was remarkable for normocytic anemia Hb 10 MCV 88 - Last colonoscopy in October 2022 confirming severe diverticulosis of the descending colon - On DOAC at home 5 mg Eliquis twice daily for DVT history Plan: - Currently on subcutaneous heparin, Eliquis on hold - Patient denies any recent episodes of GI bleed or hospitalizations for the same. - Resume home Eliquis before discharge, and monitor closely for tolerance - Coag panel wnl, no other abnormalities. Liver disease appears to be compensated. 13. Depression 14. Hypothyroidism 15. Obesity - Patient was discharged on levothyroxine 50 mcg daily in October 2022 - No recent prescriptions for levothyroxine on Med rec - On duloxetine 60 mg daily at home - BMI 37.8. TSH, HbA1c - WNL Plan: - Pending final med rec. Questionable history of hypertension, no antihypertensives noted on med rec. - Resumed duloxetine 30 mg twice daily - Patient will benefit from outpatient GLP-1 therapy for weight loss Health maintenance: Disposition: Med surg for LT tibial fracture Diet: Regular diet Lines: pIVs GI Prophylaxis: Famotidine 20 mg every 12 hours Thrombo Prophylaxis: Heparin 5000 units every 8 hours Code status: DNR/DNI Patient plan of care was discussed with the attending physician, Dr. Heaton and senior resident Dr. Kevin Ly, PGY1 Attending Provider Attestation/Addendum I reviewed labs, imaging, EKG, home medications and prior available records. Face to face evaluation was performed by me. I have personally examined the patient and discussed assessment and plan with the IM team. I reviewed the resident note and agree with the plan with exceptions as below. Ground-level fall Left tibial fracture COPD Asthma Left lower extremity DVT on Eliquis Alcoholic liver cirrhosis Consulted orthopedic surgery: Recommended [employer] Imp[employer]ating Range Tender orthotics to come over/fracture brace in addition to weight-bear to tolerance and use of left foot ankle orthosis. Ordered left knee MRI: Showed acute comminuted medial tibial plateau fracture. Given her advanced COPD and decreased mobility, she is not a good surgical candidate. Orthopedic surgery will ask for a second opinion. Management of pain as needed PT evaluation Resume Eliquis if no surgical intervention DuoNebs as needed
--- NOTE | 2024-02-01 12:28 | PC.NURSE ---
BONNIE SOLIS FROM [facility] AT BEDSIDE REQUESTING INFORMATION. WORKER DID LEAVE CALL BACK INFORMATION EXT. 106 OR . [facility] AT BEDSIDE TALKING WITH BONNIE.
--- NOTE | 2024-02-01 22:55 | PD.ORTHCONPN ---
Subjective Subjective Brief History: Patient went to [facility] and was navigating down stairs and the left foot caused her to trip fall injuring left knee. Narrative: Patient is still having considerable pain. The oxycodone seems to work well. She was told by her family physician that she would not prescribe oxycodone. Does have chronic lumbar spine disease. At 1 point she was told to go to [place] for injections lumbar spine. Exam Vital Signs Temp Pulse Resp BP Pulse Ox O2 Del Method O2 Flow Rate 97.0 F 87 18 121/89 H 95 Room Air 2 02/01/24 20:00 02/01/24 20:00 02/01/24 20:00 02/01/24 20:00 02/01/24 20:00 02/01/24 20:00 02/01/24 04:00 Vital signs blood pressure 121/89 Narrative Exam Patient is in brace. She has very conical thighs. Brace is slid down a little bit. I am in the repeat x-ray in brace. Objective - Ortho Labs 02/01/24 05:19 02/01/24 05:19 Labs: Laboratory Results - last 24 hr 02/01/24 05:19 WBC 5.8 RBC 3.59 L Hgb 9.8 L Hct 32.8 L MCV 91 MCH 27.3 MCHC 29.9 L RDW Std Deviation 68.3 H Plt Count 192 Neut % (Auto) 51 Lymph % (Auto) 32 [place] % (Auto) 13 H Eos % (Auto) 2 Baso % (Auto) 1 Neut # (Auto) 3.0 Lymph # (Auto) 1.9 [place] # (Auto) 0.8 Eos # (Auto) 0.1 Baso # (Auto) 0.0 Immature Gran # (Auto) 0.06 H Absolute Nucleated RBC 0.02 H Immature Gran % 1 H Nucleated RBC % 0 Sodium 141 Potassium 3.7 Chloride 107 Carbon Dioxide 29.5 Anion Gap 5 L BUN 8 L Creatinine 0.6 Estim Creat Clear Calc 128.5 eGFR > 60 BUN/Creatinine Ratio 13 Glucose 110 H Calculated Osmolality 280 Calcium 9.1 Hemoglobin 9.8 Assessment & Plan Assessment Additional comments: I spent a long time talking to her about her injury. It is a very comminuted medial tibial plateau fracture. It is nondisplaced. These generally heal quite rapidly. She has severe COPD. She is virtually a wheelchair ambulator. She says she is very good at transfers. I told her fixing her fracture would not get her to any place better than she was prefall. There is a very large downside including infection. I told her that personally I would live with the consequence of some displacement. She really does not use left lower extremity for any independent ambulation whatsoever. She ambulates with caregiver. Plan AP internal and external oblique left knee in brace tomorrow Documentation for date of: 02/01/24
--- NOTE | 2024-02-01 22:58 | XR_ITS ---
Examination: Left knee 2 views Technique: AP oblique lateral left knee 2 views Exam date and time: February 01, 2024 11:10 PM Indications: History patient fell January 30, 2024, fractures proximal tibia on the medial side, on CT examination January 30, 2024 of the left knee Findings: Severe osteopenia Acute fractures proximal tibia on the medial side, please see the CT report January 30, 2024 No offset Impression: Nondisplaced fractures proximal tibia
[2024-02-02] VITALS (8 sets, daily range): BP systolic 107–141; BP diastolic 62–92; PULSE 84–101; RESP 17–18; TEMP 36.2–36.3; O2SAT 92–99; BMI 44.5; BMI 13.0
[2024-02-02] MEDS: MORPHINE SULF INJ 10 MG/ML VIAL 2 MG IVP ×2 (02:06→07:38)
[2024-02-02 05:22] LABS: Basophils % (Auto) 1 % (0-2.5); Eosinophils # (Auto) 0.1 Thou/mm3 (0.0-0.5); Eosinophils % (Auto) 2 % (0-10); Hematocrit 31.5 % (36.0-46.0); Hemoglobin 9.4 g/dL (12.0-16.0); Immature Granulocytes % (Auto) 1 % (0-0); Immature Granulocytes Auto 0.05 Thou/mm3 (0.00-0.00); Lymphocytes # (Auto) 1.6 Thou/mm3 (1.0-4.8); Lymphocytes % (Auto) 26 % (10-50); Mean Corpuscular HGB Conc 29.8 g/dl (31.0-37.0); Mean Corpuscular Hemoglobin 27.3 pg (25.0-35.0); Mean Corpuscular Volume 92 fL (80-100); Monocytes # (Auto) 0.8 Thou/mm3 (0.0-0.8); Monocytes % (Auto) 12 % (0-12); Neutrophils # (Auto) 3.6 Thou/mm3 (1.8-7.7); Neutrophils % (Auto) 59 % (37-80); Nucleated Red Blood Cell % 0 /100 WBC (0); Platelet Count 196 Thou/mm3 (140-440); RDW Standard Deviation 75.6 fL (36.4-46.3); Red Blood Count 3.44 Miln/mm3 (4.00-5.20); White Blood Count 6.1 Thou/mm3 (3.6-11.0)
[2024-02-02] MEDS: HEPARIN SOD INJ 5000 UNIT/ML VIAL SC (05:48)
[2024-02-02 07:01] LABS: Anion Gap 10 (7-16); BUN/Creatinine Ratio 10 Ratio (12-20); Blood Urea Nitrogen 6 mg/dL (9-23); Calcium 9.3 mg/dL (8.3-10.6); Carbon Dioxide 25.9 mMol/L (20.0-31.0); Chloride 109 mMol/L (98-107); Creatinine (Component) 0.6 mg/dL (0.6-1.3); Estimated Creatinine Clearance 128.5 mL/min (>60); Glucose 111 mg/dL (74-106); Osmolality,Calculated 287 (275-295); Potassium 3.6 mMol/L (3.4-5.1); Sodium 145 mMol/L (136-145); eGFR > 60 See Note
[2024-02-02] MEDS: SODIUM CHLORIDE RT SOL 0.9% 3 ML NEBU INH (07:31)
[2024-02-02] MEDS: LEVALBUTEROL RT 1.25 MG/0.5 ML NEBU INH (07:31)
[2024-02-02] MEDS: LACTULOSE SYRUP 20 GM/30 ML UDC 10 GM PO ×2 (09:57→20:14)
--- NOTE | 2024-02-02 10:17 | XR_ITS ---
Examination: Knee, left , 3 views Technique: Knee AP, lateral, oblique 3 views Date and time of exam: February 02, 2024 1023 hours INDICATIONS: Acute fracture proximal tibia on CT Examination January 30, 2024 FINDINGS: Severe osteopenia Stable alignment nondisplaced fractures proximal tibia IMPRESSION: Stable alignment nondisplaced fractures proximal tibia
--- NOTE | 2024-02-02 10:36 | PC.CM ---
Entered pt on [facility].
[2024-02-02] MEDS: APIXABAN 2.5 MG TABLET 5 MG PO ×2 (11:25→20:14)
[2024-02-02] MEDS: MORPHINE SULF LIQD 10 MG/5 ML UDC PO ×2 (12:08→17:19)
--- NOTE | 2024-02-02 13:50 | CHAP ---
10:30 AM Visited by spiritual care volunteer Provided prayer for Patient.
[2024-02-02] MEDS: HYDROMORPHONE HCL 2 MG TABLET PO (14:34)
--- NOTE | 2024-02-02 17:10 | PC.PT ---
TO from Dr. Gonzalez. Patient is 50lbs WB. Knee ROM brace when supine can be 0-30deg flexion. When up, Brace needs to be set on 0deg extension. Knee ROM should be worn at all times.
--- NOTE | 2024-02-02 18:25 | ESPR_ITS ---
Documentation for date of: 02/02/24 Subjective Subjective Interval history: Patient denies any complaints. Reported that she had discussion last night for Dr. Gonzalez and agreed for no surgery. Waiting for Dr. Gonzalez's recommendation. Once Dr. Gonzalez clears the patient for discharge, will discharge patient as there is no active intervention as of now. X-ray done today showed nondisplaced fracture. Exam Vital Signs Temp Pulse Resp BP Pulse Ox O2 Del Method O2 Flow Rate 97.3 F 89 18 138/72 H 95 Room Air 2 02/02/24 16:00 02/02/24 16:00 02/02/24 16:00 02/02/24 16:00 02/02/24 16:00 02/02/24 16:00 02/01/24 04:00 Narrative Exam General: Awake. HEENT: Normocephalic, atraumatic, mucous membranes moist. Heart: Regular rate and rhythm, no murmurs. Lungs: Clear to auscultation with no wheezing or crackles. Abdomen: Soft, nondistended, nontender, positive bowel sounds. ?No guarding or rebound tenderness. Neurologic: Alert and oriented x3, no gross neurological deficit, and patient able to move all 4 extremities. Extremities: No edema. left leg in brace with severe tenderness at the site of fracture. Skin: No rash or ecchymoses. Objective Labs 02/03/24 04:48 02/03/24 04:48 Labs: Laboratory Results - last 24 hr 02/02/24 04:31 WBC 6.1 RBC 3.44 L Hgb 9.4 L Hct 31.5 L MCV 92 MCH 27.3 MCHC 29.8 L RDW Std Deviation 75.6 H Plt Count 196 Neut % (Auto) 59 Lymph % (Auto) 26 [place] % (Auto) 12 Eos % (Auto) 2 Baso % (Auto) 1 Neut # (Auto) 3.6 Lymph # (Auto) 1.6 [place] # (Auto) 0.8 Eos # (Auto) 0.1 Baso # (Auto) 0.0 Immature Gran # (Auto) 0.05 H Absolute Nucleated RBC 0.00 Immature Gran % 1 H Nucleated RBC % 0 Sodium 145 Potassium 3.6 Chloride 109 H Carbon Dioxide 25.9 Anion Gap 10 BUN 6 L Creatinine 0.6 Estim Creat Clear Calc 128.5 eGFR > 60 BUN/Creatinine Ratio 10 L Glucose 111 H Calculated Osmolality 287 Calcium 9.3 Quality Measures Quality Measures none Assessment & Plan Assessment Current Active Medications: Generic Name Dose Route Start Last Admin Trade Name Freq PRN Reason Stop Dose Admin Acetaminophen 650 mg 01/30/24 15:35 Acetaminophen 325 Mg Tablet PO 02/29/24 15:34 Q6H PRN Fever >100.1 Hydrocodone Bitart/Acetaminophen 1 tab 01/30/24 15:35 01/31/24 13:07 Hydrocodone/Apap 10/325 Tab PO 02/04/24 15:34 1 tab Q4H PRN Administration PAIN SCALE 4-6 (Moderate Apixaban 5 mg 02/02/24 10:30 02/02/24 11:25 Apixaban 2.5 Mg Tablet PO 02/23/24 10:29 5 mg BID DA Administration Famotidine 20 mg 02/03/24 09:00 Famotidine 20 Mg Tablet PO 03/04/24 08:59 QDAY DA Hydromorphone HCl 2 mg 02/02/24 11:10 02/02/24 14:34 Hydromorphone Hcl 2 Mg Tablet PO 02/07/24 11:09 2 mg Q4HR PRN Administration BREAKTHROUGH PAIN (SEVERE) Lactulose 10 gm 02/02/24 09:30 02/02/24 09:57 Lactulose Syrup 20 Gm/30 Ml Udc PO 03/03/24 09:29 10 gm BID DA Administration Protocol Levalbuterol HCl 1.25 mg 02/01/24 09:08 02/02/24 07:31 Levalbuterol Rt 1.25 Mg/0.5 Ml Nebu INH 03/02/24 08:14 1.25 mg Q8HRRT PRN Administration WHEEZING Morphine Sulfate 10 mg 02/02/24 11:09 02/02/24 17:19 Morphine Sulf Liqd 10 Mg/5 Ml Udc PO 02/07/24 11:08 10 mg Q4HR PRN Administration Pain 7-10 Ondansetron HCl 4 mg 01/30/24 15:35 Ondansetron Inj 2 Mg/Ml Inj 2 Ml IV 02/29/24 15:34 Q6H PRN NAUSEA OR VOMITING Protocol Sodium Chloride 3 ml 02/01/24 08:12 02/02/24 07:31 Sodium Chloride Rt [place] 0.9% 3 Ml Nebu INH 03/02/24 08:11 3 ml PRN PRN Administration SOLN Plan Ms Caban is a 62-year-old woman with past medical history of DVT on Eliquis, alcoholic liver cirrhosis, foot drop after a left fibular fracture, chronic radicular back pain 2/2 L3-L5 stenosis, hypothyroidism, depression, bilateral knee osteoarthritis, who presented to the ED on 01/30/2024 after a ground-level fall and admitted for medial tibial fracture 1. LT knee pain 2. Acute non displaced fracture of the LT proximal tibia 3. Ground level mechanical fall In the setting of 4. Bilateral knee osteoarthritis 5. Chronic left foot drop 6. Hx of Lumbar spinal stenosis L3-L5 7. Chronic back pain Patient was at a friend's house and fell down the stairs when she lost her balance due to a chronic left foot drop. She denies any syncope, or loss of consciousness before or after the event. She denies any hospitalization for falls in the past. At this time, patient is in 10/10 pain, unable to bend her left knee and since the incident. - Hip x-ray : negative for any left hip fracture, pelvis appears intact. - X-ray of the left tibia-fibula region : incomplete study. - X-ray of the left knee : severe osteopenia but no acute fracture. - Head CT : negative for any acute findings. - Hip CT without contrast : soft tissue contusion lateral to the left hip only. - CT scan of the knee : acute fracture of the proximal tibia through the medial tibial plateau region and intercondylar spine, without any major displacement noted. - She states that her foot drop has been ongoing for many years, possibly due to her back issues, for which she now follows up with Dr Arechiga outpatient. - MRI left knee - Complex comminuted fractures proximal medial tibial metaphyseal region extending to the medial tibial plateau, mild depression medial tibial plateau Plan: - Orthopedic surgeon Dr. Gonzalez is consulted, did not recommend any surgery for now. - PRN Acetaminophen 650 mg to 6 hours for fever >100.1. - Started on regular diet for now. - Pain control: Tylenol (1-3) + [place] 10/325 q4H (4-6) + IV Morphine 2 mg (7-10) - PRN Dilaudid 1mg q3H for breakthrough pain 8. Hx of unprovoked recurrent episodes of DVT, on DOAC 9. Sinus tachycardia, resolved - Vitals showed sinus tachycardia HR 103 bpm, BP wnl. - 11/13/2022 US doppler of LLE : non-occlusive thrombus in the superficial left greater saphenous vein. CTA chest was negative for PE - Patient was started on Eliquis 5 mg p.o. twice daily since 11/13/2022. also stated that her daughter also had h/o DVT and is on eliquis, likely familial - 2023 US duplex of the LLE : negative for DVT, with normal color-flow and spectral analysis. Plan: -Left lower extremity ultrasound negative for DVT at this time. -Started on Eliquis 5 Mg twice daily - Follow-up orthopedic recommendations, will resume home Eliquis if no surgery planned within 24 hours. - EKG ordered, sinus tachy. Tachycardia likely in the setting of excruciating pain. 10. History of alcoholic liver cirrhosis 11. Hx of LGIB 2/2 diverticulosis 12. Normocytic anemia - Initial body workup was remarkable for normocytic anemia Hb 10 MCV 88 - Last colonoscopy in October 2022 confirming severe diverticulosis of the descending colon - On DOAC at home 5 mg Eliquis twice daily for DVT history Plan: - Started on Eliquis 5 Mg twice daily - Patient denies any recent episodes of GI bleed or hospitalizations for the same. - Resume home Eliquis before discharge, and monitor closely for tolerance - Coag panel wnl, no other abnormalities. Liver disease appears to be compensated. 13. Depression 14. Hypothyroidism 15. Obesity - Patient was discharged on levothyroxine 50 mcg daily in October 2022 - No recent prescriptions for levothyroxine on Med rec - On duloxetine 60 mg daily at home - BMI 37.8. TSH, HbA1c - WNL Plan: - Pending final med rec. Questionable history of hypertension, no antihypertensives noted on med rec. - Resumed duloxetine 30 mg twice daily - Patient will benefit from outpatient GLP-1 therapy for weight loss Health maintenance: Disposition: Med surg for LT tibial fracture Diet: Regular diet Lines: pIVs GI Prophylaxis: Famotidine 20 mg every 12 hours Thrombo Prophylaxis: Eliquis Code status: DNR/DNI Patient plan of care was discussed with the attending physician, Dr. Heaton and senior resident Dr. Kevin Ly, PGY1 Attending Provider Attestation/Addendum I reviewed labs, imaging, EKG, home medications and prior available records. Face to face evaluation was performed by me. I have personally examined the patient and discussed assessment and plan with the IM team. I reviewed the resident note and agree with the plan with exceptions as below. Ground-level fall Left tibial fracture COPD Asthma Left lower extremity DVT on Eliquis Alcoholic liver cirrhosis Consulted orthopedic surgery: Recommended Insulation Installer orthotics to come over/fracture brace in addition to weight-bear to tolerance and use of left foot ankle orthosis. Ordered left knee MRI: Showed acute comminuted medial tibial plateau fracture. Given her advanced COPD and decreased mobility, she is not a good surgical candidate. Orthopedic surgery recommended repeating films to check for fracture stability. Management of pain as needed PT evaluation. Ordered home health. She is refusing SNF. Resume Eliquis DuoNebs as needed
[2024-02-02] MEDS: HYDROcodone/APAP 10/325 TAB PO (20:14)
--- NOTE | 2024-02-02 23:01 | PD.ORTHCONPN ---
Subjective Subjective Brief History: Patient went to [facility] and was navigating down stairs and the left foot caused her to trip fall injuring left knee. Narrative: Less pain. Up with PT did very well. She was able to do transfers safely. Exam Vital Signs Temp Pulse Resp BP Pulse Ox O2 Del Method O2 Flow Rate 97.4 F 86 17 107/62 94 L Room Air 2 02/02/24 20:00 02/02/24 20:00 02/02/24 20:00 02/02/24 20:00 02/02/24 20:00 02/02/24 20:00 02/01/24 04:00 Vital signs blood pressure 107/62 temp 97.4 Narrative Exam Less swelling left knee. Foot drop unchanged left lower extremity Objective - Ortho Labs 02/02/24 04:31 02/02/24 04:31 Labs: Laboratory Results - last 24 hr 02/02/24 04:31 WBC 6.1 RBC 3.44 L Hgb 9.4 L Hct 31.5 L MCV 92 MCH 27.3 MCHC 29.8 L RDW Std Deviation 75.6 H Plt Count 196 Neut % (Auto) 59 Lymph % (Auto) 26 [place] % (Auto) 12 Eos % (Auto) 2 Baso % (Auto) 1 Neut # (Auto) 3.6 Lymph # (Auto) 1.6 [place] # (Auto) 0.8 Eos # (Auto) 0.1 Baso # (Auto) 0.0 Immature Gran # (Auto) 0.05 H Absolute Nucleated RBC 0.00 Immature Gran % 1 H Nucleated RBC % 0 Sodium 145 Potassium 3.6 Chloride 109 H Carbon Dioxide 25.9 Anion Gap 10 BUN 6 L Creatinine 0.6 Estim Creat Clear Calc 128.5 eGFR > 60 BUN/Creatinine Ratio 10 L Glucose 111 H Calculated Osmolality 287 Calcium 9.3 Hemoglobin 9.4 Assessment & Plan Assessment Additional comments: Medial tibial plateau without displacement checked with x-rays in brace Plan Can be discharged tomorrow. She wants to go home. She does not want to lose her home her care provider. That almost happened last time she was admitted to SNF. She should be in brace during the day. I would like to see her in knee immobilizer at night I think that we will be more comfortable. I told her I need to see her back in the office in 2 weeks and requesting x-rays left knee to make sure no displacement. Documentation for date of: 02/02/24
[2024-02-03] VITALS: BP 142/77; PULSE 96; RESP 18; TEMP 36.1; O2SAT 95
[2024-02-03] MEDS: HYDROcodone/APAP 10/325 TAB PO ×2 (01:24→11:36)
[2024-02-03 04:00] VITALS: BP 121/69; PULSE 85; RESP 18; TEMP 36.3; O2SAT 90
[2024-02-03 05:50] LABS: Basophils % (Auto) 1 % (0-2.5); Eosinophils # (Auto) 0.1 Thou/mm3 (0.0-0.5); Eosinophils % (Auto) 2 % (0-10); Hematocrit 31.7 % (36.0-46.0); Hemoglobin 9.7 g/dL (12.0-16.0); Immature Granulocytes % (Auto) 1 % (0-0); Immature Granulocytes Auto 0.03 Thou/mm3 (0.00-0.00); Lymphocytes # (Auto) 1.7 Thou/mm3 (1.0-4.8); Lymphocytes % (Auto) 28 % (10-50); Mean Corpuscular HGB Conc 30.6 g/dl (31.0-37.0); Mean Corpuscular Hemoglobin 27.3 pg (25.0-35.0); Mean Corpuscular Volume 89 fL (80-100); Monocytes # (Auto) 0.8 Thou/mm3 (0.0-0.8); Monocytes % (Auto) 13 % (0-12); Neutrophils # (Auto) 3.3 Thou/mm3 (1.8-7.7); Neutrophils % (Auto) 56 % (37-80); Nucleated Red Blood Cell % 0 /100 WBC (0); Platelet Count 222 Thou/mm3 (140-440); RDW Standard Deviation 73.1 fL (36.4-46.3); Red Blood Count 3.55 Miln/mm3 (4.00-5.20); White Blood Count 5.9 Thou/mm3 (3.6-11.0)
[2024-02-03 06:29] LABS: Anion Gap 4 (7-16); BUN/Creatinine Ratio 10 Ratio (12-20); Blood Urea Nitrogen 7 mg/dL (9-23); Calcium 9.1 mg/dL (8.3-10.6); Carbon Dioxide 31.7 mMol/L (20.0-31.0); Chloride 108 mMol/L (98-107); Creatinine (Component) 0.7 mg/dL (0.6-1.3); Estimated Creatinine Clearance 108.3 mL/min (>60); Glucose 111 mg/dL (74-106); Osmolality,Calculated 285 (275-295); Sodium 144 mMol/L (136-145); eGFR > 60 See Note
[2024-02-03 08:00] VITALS: BP 113/79; PULSE 85; RESP 18; TEMP 36.1; O2SAT 92
[2024-02-03] MEDS: APIXABAN 2.5 MG TABLET 5 MG PO (08:20)
[2024-02-03] MEDS: FAMOTIDINE 20 MG TABLET PO (08:20)
[2024-02-03] MEDS: LACTULOSE SYRUP 20 GM/30 ML UDC 10 GM PO (08:21)
[2024-02-03] MEDS: MORPHINE SULF LIQD 10 MG/5 ML UDC PO (08:33)
[2024-02-03 08:38] VITALS: PULSE 99; RESP 18; O2SAT 98
[2024-02-03] MEDS: LEVALBUTEROL RT 1.25 MG/0.5 ML NEBU INH (08:38)
[2024-02-03] MEDS: SODIUM CHLORIDE RT SOL 0.9% 3 ML NEBU INH (08:38)
--- NOTE | 2024-02-03 09:10 | PC.SS ---
Follow up note: Patient on room air. No 02 needed for home. Per physician, patient will be discharged home today. Transfer nurse put in request for HH services on [facility].
--- NOTE | 2024-02-03 11:13 | PC.SS ---
Follow up note: SS followed up with patient to determine if she prefers SNF. Patient declined. Patient states she did that before and wants to d/c home with home health. She found someone to stay with her and she will have someone always with her 24 hours daily. Patient will d/c home today with Home health services. Patient's [facility] worker will pick her up from hospital.
--- NOTE | 2024-02-03 11:17 | PD.RESDS ---
Planned Discharge Date 02/03/24 DS: Providers Provider Date of admission: 01/30/24 15:45 Primary care physician: Physician No Primary/Family Admitting Provider: Cheikh Heaton MD Attending Provider on Admission: Cheikh Heaton MD Consults: 01/30/24 13:23 Consult to Orthopedic Stat Comment: Consulting Provider: Carlos Gonzalez 01/30/24 22:56 Referral [facility] Routine Comment: Referral Physical Therapy Routine Comment: Physician Instructions: Referral Respiratory Therapy Routine Comment: 01/31/24 07:32 Referral Wound Care Routine Comment: Attending Provider on DC: Luigi Ly MD Discharging Provider: Luigi Ly MD DS: Diagnosis Problem List Completed Was Problem List Reviewed/Reconciled?: Yes Hospital Course Hospital Course Hospital course: Ms Caban is a 62-year-old woman with past medical history of DVT on Eliquis, alcoholic liver cirrhosis, foot drop after a left fibular fracture, chronic radicular back pain 2/2 L3-L5 stenosis, hypothyroidism, depression, bilateral knee osteoarthritis, who presented to the ED on 01/30/2024 after a ground-level fall and admitted for acute nondisplaced fracture of left proximal tibia. vitals are stable. Initial body workup was remarkable for normocytic anemia Hb 10 MCV 88, normal coagulation panel, and CMP remarkable only for mild hyperglycemia 127 and mildly elevated ALP 165. On imaging studies, hip x-ray was negative for any left hip fracture, pelvis appears intact. X-ray of the left tibia-fibula region showed an incomplete study. This was followed by x-ray of the left knee, with findings consistent with severe osteopenia but no acute fracture. Head CT was negative for any acute findings. Hip CT without contrast was also ordered which showed soft tissue contusion lateral to the left hip only. A follow-up CT scan of the knee however was consistent with acute fracture of the proximal tibia through the medial tibial plateau region and intercondylar spine, without any major displacement noted. Venous ultrasound duplex of the left lower extremity was negative for DVT, with normal color-flow and spectral analysis. Dr Gonzalez was consulted during the hospital stay and recommended no surgery, advised to keep the left knee in brace. Knee MRI showed Complex comminuted fractures proximal medial tibial metaphyseal region extending to the medial tibial plateau, mild depression medial tibial plateau. Menisci and cruciate ligaments appear grossly intact. Meniscocapsular separation body the medial meniscus. Echo showed normal LV size, wall thickness. Estimated EF 55-60%. Normal LV systolic function. RV size upper normal.Estimated RVSP 50 mmHg with 10mmHg RAP. At least mild to moderate PAH. Mildly dilated RA. Moderate TR. Trace MR. Patient was treated with pain medications during the hospital stay Patient was discharged to home with home health with the following recommendations and treatment. -Follow-up with PCP within 1 week of discharge. Please follow-up with the [facility] with Dr. Ly. Call [phone] to make an appointment. -Follow up with within 2 weeks of discharge -Take Hydrocodone-acetaminophen 10/300mg tablet Q6H as needed -Stop Duloxetine and pantoprazole. -Continue rest of the home medications. -Take medications as prescribed. -Return to ED if symptoms persist 1. LT knee pain 2. Acute non displaced fracture of the LT proximal tibia 3. Ground level mechanical fall 4. Bilateral knee osteoarthritis 5. Chronic left foot drop 6. Hx of Lumbar spinal stenosis L3-L5 7. Chronic back pain 8. Hx of unprovoked recurrent episodes of DVT, on DOAC 9. Sinus tachycardia, resolved 10. History of alcoholic liver cirrhosis 11. Hx of LGIB 2/2 diverticulosis 13. Depression 14. Hypothyroidism 15. Obesity Patient plan of care was discussed with the attending physician, Dr. Florina Ly, PGY1 Time Spent with Patient Time attestation: Total time spent providing and/or coordinating discharge services: Time spent: Greater than 30 minutes Home Health Home Health Referral Orders: 02/02/24 10:22 Home Health Referral Routine Reason For Exam: refused SNF, leg fracture, home PT Home-Bound The patient must either because of illness or injury, need the aid of supportive devices such as crutches, canes, wheelchairs, and walkers; the use of special transportation; or the assistance of another person in order to leave their place of residence; OR have a condition such that leaving his or her home is medically contraindicated. In addition, the patient also meets the following criteria: patient is normally unable to leave the home and leaving home requires considerable taxing effort. Addendum to Home Health Certification Practitioner's Certification: I certify that the patient has been under my care in the hospital and the care of attending physician (see below). We had a ynwf-te-[id number] encounter on (see date below). My clinical findings indicate that the patient is home bound per the above criteria and the Home Health Services noted in these orders are medically necessary. The primary reason for the jpbq-ce-pjvm encounter is related to the fact that the patient requires home health services. Date Certifying Pgox-vb-Gvmt Physician Encounter: 01/30/24 Physician's Name who will Assume Oversight for Services: Ny Vázquez Physician's Phone No.who will Assume Oversight for Service: EQUIPMENT CLEANER - Community Resources: Yes PT to Evaluate: Yes PT to evaluate and provide a treatmnet plan to increase patient's mobility and strength. Wound Care: No IV Therapy: No RN Safety Evaluation: Yes RN to evaluate and create a plan of care that will produce positive outcomes. Palliative Treatment: No Palliative treatment and evaluate the need for hospice. Home Health Aide - Personal Care: Yes Home Health Aide to assist with any ADL's. Exam Vital Signs Temp Pulse Resp BP Pulse Ox O2 Del Method O2 Flow Rate 96.9 F 99 18 113/79 98 Room Air 2 02/03/24 08:00 02/03/24 08:38 02/03/24 08:38 02/03/24 08:00 02/03/24 08:38 02/03/24 08:00 02/01/24 04:00 Narrative Exam General: Awake. HEENT: Normocephalic, atraumatic, mucous membranes moist. Heart: Regular rate and rhythm, no murmurs. Lungs: Clear to auscultation with no wheezing or crackles. Abdomen: Soft, nondistended, nontender, positive bowel sounds. ?No guarding or rebound tenderness. Neurologic: Alert and oriented x3, no gross neurological deficit, and patient able to move all 4 extremities. Extremities: No edema. left leg in brace with severe tenderness at the site of fracture. Skin: No rash or ecchymoses. Discharge Plan Plan Patient Disposition: Home w/HOME HEALTH Disposition Comment: Stable Patient condition on transfer: Stable Care Plan Goals: -Follow-up with PCP within 1 week of discharge. Please follow-up with the [facility] with Dr. Ly. Call [phone] to make an appointment. -Follow up with within 2 weeks of discharge -Take Hydrocodone-acetaminophen 10/300mg tablet Q6H as needed -Stop Duloxetine and pantoprazole. -Continue rest of the home medications. -Take medications as prescribed. -Return to ED if symptoms persist Prescriptions/Referrals Prescriptions/Med Rec: New naloxone [Narcan] 4 mg/actuation spray,non-aerosol 4 mg intranasal Q2M PRN (Reason: opioid overdose) Qty: 2 0RF Rx Instructions: spray 1 dose into ONE nostril; alternate nostrils w each dose until help arrives hydrocodone-acetaminophen 10-300 mg tablet 1 tab PO Q6H MDD 40 PRN (Reason: pain) 7 Days Qty: 20 0RF Continued furosemide 40 mg tablet 40 mg PO QDAY PRN (Reason: Edema) lactulose 10 gram/15 mL Syrup 20 g PO BID levothyroxine 50 mcg capsule 50 mcg PO AC Eliquis 5 mg tablet 5 mg PO BID Qty: 60 0RF albuterol sulfate 90 mcg/actuation HFA aerosol inhaler 2 inh INHALATION Q6H PRN (Reason: wheeze) duloxetine 60 mg capsule,delayed release(DR/EC) 60 mg PO DAILY atorvastatin 20 mg tablet 20 mg PO DAILY pregabalin 100 mg capsule 100 mg PO TID Discontinued pantoprazole 40 mg tablet,delayed release (DR/EC) 40 mg PO DAILY duloxetine 60 mg capsule,delayed release(DR/EC) 60 mg PO DAILY Referrals: No Primary/Family,Physician [Primary Care Provider] - Marcel Wagner MD [Resident] - Patient/Caregiver Discharge Instructions Discharge Activity: as per physical therapy and resume usual activities Other Discharge Activity Instructions:: We want to make sure she is nonweightbearing left lower extremity. She can do active range of motion in brace to begin with we will set it at 0 to 30 degrees. Needs brace during the day for range of motion and knee immobilizer at night will be much more comfortable. I told her she does need some protection for the first 2 weeks. I like to see her back in 2 weeks in my office with a 2 view left knee out of brace. Call my office for appointment in 2 weeks. Make sure we send her out with x-ray request 2 view left knee to be done in 2 weeks. Please send her with narcotic pain medicine. It seems like she is tolerating the Percocet. Please discuss with her tomorrow how much she thinks she needs I think she will need at least 3/day and would figure on 3 weeks that would be 63. She says her care provider will be happy to dispense the medication so there is no question about her using it more than directed. I told her I do not give chronic narcotic pain medicine and that should be done by family doctor or pain management. Continue to do transfers bed to wheelchair wheelchair to toilet toilet to wheelchair and back to bed. She says she has hospital bed at home. Make sure she has trapeze. Should be an arrangement for medical transport to take her for x-rays. She is really not safe to do it in car at the present time. She should go home by ambulance. Call my office for appointment in 2 weeks. It should be done after she has x-rays at [facility] Education Materials: RICE, How Bones Heal, Arthritis: Exercise, ED Foot Drop Print Language: Bengali Activity Restrictions/Additional Instructions: activity as directed by Dr Gonzalez Stand Alone Forms: Cami Award Info., Patient Portal Info Letter Discharge Order Discharge Orders: Discharge (Routine); Ordered 02/03/24 Ordered By: Marcel Wagner Quality Discharge Quality Measures VTE therapy Attestestation Attestation I reviewed labs, imaging, EKG, home medications and prior available records. Face to face evaluation was performed by me. I have personally examined the patient and discussed assessment and plan with the IM team. I reviewed the resident note and agree with the plan with exceptions as below. Ground-level fall Left tibial fracture COPD Asthma Left lower extremity DVT on Eliquis Alcoholic liver cirrhosis Consulted orthopedic surgery: Recommended [employer] Officer orthotics to come over/fracture brace in addition to weight-bear to tolerance and use of left foot ankle orthosis. Ordered left knee MRI: Showed acute comminuted medial tibial plateau fracture. Given her advanced COPD and decreased mobility, she is not a good surgical candidate. Orthopedic surgery recommended repeating films to check for fracture stability. Repeat films showed stability. Follow-up with orthopedic surgery in 2 weeks. Repeat filming prior to that appointment. Management of pain as needed PT evaluation. Ordered home health. She is refusing SNF. Resume Eliquis Time spent is 40 minutes. More than 50% of the time was spent on patient education and coordination of care.
[2024-02-03 11:58] VITALS: BP 121/82; PULSE 85; RESP 18; TEMP 36.2; O2SAT 92
--- NOTE | 2024-02-03 13:21 | PC.SS ---
SS set up transportation for patient with [facility], Reference # [id number]. SS contacted patient's [facility] worker, Babs in regards to patient's DME. Babs informed SS that patient already had all DME needed as well as Bed rails that she can utilize to push herself up. SS will contact Babs once ETA is available.
--- NOTE | 2024-02-03 14:22 | PC.SS ---
SS received a call from [facility], ETA was set up for 1600 back home. SS notified day care center director, Babs as well as patient's nurse Chano.
[2024-02-03 16:00] VITALS: BP 125/87; PULSE 91; RESP 17; TEMP 36; O2SAT 95
--- NOTE | 2024-02-05 13:46 | PC.CM ---
I sent a home health referral to all agencies and patient had not been accepted by anyone at this time.
--- NOTE | 2024-02-06 08:56 | PC.CM ---
[facility] accepted the pt. Booked [facility]. Pending insurance auth and start of care date.
--- NOTE | 2024-02-08 09:05 | PC.CM ---
[facility] accepted patient and start of care date set for 02/08
== END 2024-02-03 16:30 | disposition home health service (06) | DRG 342 ==
LOC: SERX 13:22 → SERHOLD 15:55 → S3SX 21:28
PROVIDERS: Student in an Organized Health Care Education/Training Program; Admitting Provider Student in an Organized Health Care Education/Training Program; Emergency Provider Emergency Medicine; Visit Provider Student in an Organized Health Care Education/Training Program
DX: S82.142A Displaced bicondylar fracture of left tibia, initial encounter for closed fracture (principal); Z86.718 Personal history of other venous thrombosis and embolism; Z79.01 Long term (current) use of anticoagulants; K70.30 Alcoholic cirrhosis of liver without ascites; M21.372 Foot drop, left foot; M48.061 Spinal stenosis, lumbar region without neurogenic claudication; W10.9XXA Fall (on) (from) unspecified stairs and steps, initial encounter; M54.9 Dorsalgia, unspecified; G89.29 Other chronic pain; R73.9 Hyperglycemia, unspecified; E03.9 Hypothyroidism, unspecified; F32.A Depression, unspecified; I10 Essential (primary) hypertension; Z79.890 Hormone replacement therapy; M17.0 Bilateral primary osteoarthritis of knee; E66.9 Obesity, unspecified; D64.9 Anemia, unspecified; Z68.41 Body mass index [BMI] 40.0-44.9, adult; Z66 Do not resuscitate; I82.402 Acute embolism and thrombosis of unspecified deep veins of left lower extremity; J44.9 Chronic obstructive pulmonary disease, unspecified
CPT/HCPCS: 36415; 70450; 73503; 73560; 73562; 73564; 73590; 73700; 73721; 80048; 80053; 80061; 83036; 83735; 84443; 85025; 85610; 85730; 93005; 93306; 93971; 94640; 94664; 96374; 96375; 97162; 99291; A9270; J1643; J2270; J2405; J3490; J1644

== ENCOUNTER → 2024-02-16 | Outpatient (CLI) | payer MEDICAID, SELFPAY ==
--- NOTE | 2024-02-16 | XR_ITS ---
Examination: Knee, left , 3 views Technique: Knee AP, lateral, oblique 3 views Date and time of exam: February 16, 2024 1103 hours Comparison February 02, 2024 INDICATIONS: Fractures proximal tibia on the medial side, CT scan of the knee January 30, 2024 FINDINGS: Severe osteopenia Stable alignment fractures through the medial proximal tibia Advanced narrowing patellofemoral joint Moderate fluid blood in the joint space IMPRESSION: Stable fractures proximal tibia
== END | disposition home or self-care (01) ==
PROVIDERS: PCP Nurse Practitioner Family; Referring Provider Orthopaedic Surgery; Visit Provider Orthopaedic Surgery
DX: S82.202A Unspecified fracture of shaft of left tibia, initial encounter for closed fracture (principal); X58.XXXA Exposure to other specified factors, initial encounter
CPT/HCPCS: 73562

== ENCOUNTER → 2024-03-07 | Outpatient (CLI) | payer MEDICAID, SELFPAY ==
--- NOTE | 2024-03-07 | XR_ITS ---
Examination: Knee, left , 3 views Technique: Knee AP, lateral, oblique 3 views Date and time of exam: March 07, 2024 1221 hours Comparison February 16, 2024 FINDINGS: Healing fractures proximal tibia Severe osteopenia IMPRESSION: Stable alignment of fractures through the medial proximal tibia with partial healing
== END | disposition home or self-care (01) ==
PROVIDERS: PCP Nurse Practitioner Family; Referring Provider Orthopaedic Surgery; Visit Provider Orthopaedic Surgery
DX: S82.132A Displaced fracture of medial condyle of left tibia, initial encounter for closed fracture (principal); X58.XXXA Exposure to other specified factors, initial encounter
CPT/HCPCS: 73562

== ENCOUNTER → 2024-03-27 | Outpatient (CLI) | payer MEDICAID, SELFPAY ==
--- NOTE | 2024-03-27 | XR_ITS ---
Examination: Knee, left , 3 views Technique: Knee AP, lateral, oblique 3 views Date and time of exam: March 27, 2024 1314 hours Comparison March 07, 2024 INDICATIONS: History knee fracture proximal medial tibia FINDINGS: Stable alignment fractures to the medial proximal tibia Severe osteopenia Advanced narrowing patellofemoral joint IMPRESSION: Stable alignment fractures proximal medial tibia
== END | disposition home or self-care (01) ==
PROVIDERS: PCP Nurse Practitioner Family; Referring Provider Orthopaedic Surgery; Visit Provider Orthopaedic Surgery
DX: S82.102A Unspecified fracture of upper end of left tibia, initial encounter for closed fracture (principal); X58.XXXA Exposure to other specified factors, initial encounter
CPT/HCPCS: 73562

== ENCOUNTER → 2024-03-29 | Outpatient (CLI) | payer MEDICAID, SELFPAY | END | disposition home or self-care (01) | LOC: SWHD 09:07 | PROVIDERS: Visit Provider Student in an Organized Health Care Education/Training Program | DX: S81.802A Unspecified open wound, left lower leg, initial encounter (principal); S91.102A Unspecified open wound of left great toe without damage to nail, initial encounter; X58.XXXA Exposure to other specified factors, initial encounter; J44.9 Chronic obstructive pulmonary disease, unspecified; D64.9 Anemia, unspecified; I10 Essential (primary) hypertension; I82.409 Acute embolism and thrombosis of unspecified deep veins of unspecified lower extremity; F03.90 Unspecified dementia, unspecified severity, without behavioral disturbance, psychotic disturbance, mood disturbance, and anxiety; F17.200 Nicotine dependence, unspecified, uncomplicated; F10.90 Alcohol use, unspecified, uncomplicated | CPT/HCPCS: 97597; 99213; A9270; G0463 ==

== ENCOUNTER → 2024-04-12 | Outpatient (CLI) | payer MEDICAID, SELFPAY | END | disposition home or self-care (01) | PROVIDERS: PCP Family Medicine; Referring Provider Family Medicine; Visit Provider Student in an Organized Health Care Education/Training Program | DX: S81.802A Unspecified open wound, left lower leg, initial encounter (principal); S91.102A Unspecified open wound of left great toe without damage to nail, initial encounter; X58.XXXA Exposure to other specified factors, initial encounter; J44.9 Chronic obstructive pulmonary disease, unspecified; D64.9 Anemia, unspecified; I10 Essential (primary) hypertension; I82.409 Acute embolism and thrombosis of unspecified deep veins of unspecified lower extremity; F03.90 Unspecified dementia, unspecified severity, without behavioral disturbance, psychotic disturbance, mood disturbance, and anxiety; F17.200 Nicotine dependence, unspecified, uncomplicated; F10.90 Alcohol use, unspecified, uncomplicated | CPT/HCPCS: 29581; A9270 ==

== ENCOUNTER → 2024-04-19 | Outpatient (CLI) | payer MEDICAID, SELFPAY | END | disposition home or self-care (01) | LOC: SWHD 09:50 | PROVIDERS: Visit Provider Student in an Organized Health Care Education/Training Program | DX: S81.802A Unspecified open wound, left lower leg, initial encounter (principal); S91.102A Unspecified open wound of left great toe without damage to nail, initial encounter; X58.XXXA Exposure to other specified factors, initial encounter; J44.9 Chronic obstructive pulmonary disease, unspecified; D64.9 Anemia, unspecified; I10 Essential (primary) hypertension; I82.409 Acute embolism and thrombosis of unspecified deep veins of unspecified lower extremity; F03.90 Unspecified dementia, unspecified severity, without behavioral disturbance, psychotic disturbance, mood disturbance, and anxiety; F17.200 Nicotine dependence, unspecified, uncomplicated; F10.90 Alcohol use, unspecified, uncomplicated | CPT/HCPCS: 17250; A9270 ==

== ENCOUNTER → 2024-04-26 | Outpatient (CLI) | payer MEDICAID, SELFPAY | END | disposition home or self-care (01) | LOC: SWHD 09:25 | PROVIDERS: PCP Nurse Practitioner Family; Referring Provider Nurse Practitioner Family; Visit Provider Student in an Organized Health Care Education/Training Program | DX: S91.102A Unspecified open wound of left great toe without damage to nail, initial encounter (principal); X58.XXXA Exposure to other specified factors, initial encounter; J44.9 Chronic obstructive pulmonary disease, unspecified; D64.9 Anemia, unspecified; I10 Essential (primary) hypertension; F03.90 Unspecified dementia, unspecified severity, without behavioral disturbance, psychotic disturbance, mood disturbance, and anxiety; F17.200 Nicotine dependence, unspecified, uncomplicated; F10.90 Alcohol use, unspecified, uncomplicated; I82.409 Acute embolism and thrombosis of unspecified deep veins of unspecified lower extremity | CPT/HCPCS: 17250; A9270 ==

== ENCOUNTER → 2024-05-03 | Outpatient (CLI) | payer MEDICAID, SELFPAY | END | disposition home or self-care (01) | LOC: SWHD 09:04 | PROVIDERS: PCP Nurse Practitioner Family; Referring Provider Nurse Practitioner Family; Visit Provider Student in an Organized Health Care Education/Training Program | DX: S81.802A Unspecified open wound, left lower leg, initial encounter (principal); S91.102A Unspecified open wound of left great toe without damage to nail, initial encounter; X58.XXXA Exposure to other specified factors, initial encounter; J44.9 Chronic obstructive pulmonary disease, unspecified; D64.9 Anemia, unspecified; I10 Essential (primary) hypertension; F03.90 Unspecified dementia, unspecified severity, without behavioral disturbance, psychotic disturbance, mood disturbance, and anxiety; F17.200 Nicotine dependence, unspecified, uncomplicated; F10.90 Alcohol use, unspecified, uncomplicated; I82.409 Acute embolism and thrombosis of unspecified deep veins of unspecified lower extremity | CPT/HCPCS: 97597; A9270 ==

== ENCOUNTER → 2024-05-10 | Outpatient (CLI) | payer MEDICAID, SELFPAY | END | disposition home or self-care (01) | LOC: SWHD 09:03 | PROVIDERS: PCP Nurse Practitioner Family; Referring Provider Nurse Practitioner Family; Visit Provider Student in an Organized Health Care Education/Training Program | DX: S81.802A Unspecified open wound, left lower leg, initial encounter (principal); S91.102A Unspecified open wound of left great toe without damage to nail, initial encounter; X58.XXXA Exposure to other specified factors, initial encounter; J44.9 Chronic obstructive pulmonary disease, unspecified; D64.9 Anemia, unspecified; I10 Essential (primary) hypertension; F03.90 Unspecified dementia, unspecified severity, without behavioral disturbance, psychotic disturbance, mood disturbance, and anxiety; F17.200 Nicotine dependence, unspecified, uncomplicated; F10.90 Alcohol use, unspecified, uncomplicated; I82.409 Acute embolism and thrombosis of unspecified deep veins of unspecified lower extremity | CPT/HCPCS: 11042; A9270 ==

== ENCOUNTER 2024-05-13 23:53 | Inpatient (IN) | payer MEDICAID, SELFPAY ==
[2024-05-13 23:57] VITALS: BP 111/67; PULSE 101; RESP 19; TEMP 36.8; O2SAT 97; BMI 29.0
[2024-05-14] VITALS (9 sets, daily range): BP systolic 101–153; BP diastolic 70–81; PULSE 86–107; RESP 16–96; TEMP 36.1–36.7; O2SAT 88–96; BMI 43.6
--- NOTE | 2024-05-14 00:08 | PD.EDEXREM ---
ED Extremity Problem RME/HPI General Chief complaint: Extremity Problem,Nontraumatic Stated complaint: LT LEG PAIN Time Seen by Provider: 05/14/24 00:06 Source: patient and EMS Arrival date/time: 05/13/24 23:53 Mode of arrival: EMS Limitations: no limitations RME / HPI RME / HPI Narrative: Dr. Sanchez?s Main ED Evaluation: 64-year-old female presents to the Emergency Department via EMS for evaluation of left lower extremity pain. The patient reports that 3?4 days ago, she became stuck between her wheelchair and the toilet, resulting in pain to her left posterior-lateral calf. She has been experiencing increasing redness, tenderness, and swelling in that area since the incident. She rates the pain as localized and more severe on the left side compared to the right. Although both legs appear red, she emphasizes that the left calf is more tender and swollen. She denies any shortness of breath. The patient has a complex medical history, including chronic venous hypertension with ulceration of the left lower extremity, a history of left DVT and PE, and is currently on Eliquis with reported compliance. She is also being followed by [facility] (last seen 05/10/24), Dr. Perales at [facility], and Dr. Caban for vascular care. Past medical history is significant for: Alcoholic liver disease COPD Anemia Asthma Hypertension Opioid dependence Hypothyroidism Depression Bilateral knee osteoarthritis Alcohol abuse Left foot drop (following left fibular fracture) Chronic radicular back pain due to L3-L5 stenosis Social history: The patient uses a wheelchair for mobility. She smokes half a pack of cigarettes daily and drinks alcohol daily. Related Data Home Medications ?Medication ?Instructions ?Recorded ?Confirmed albuterol sulfate 90 mcg/actuation 2 inh inhalation Q6H PRN wheeze 10/27/22 02/01/24 aerosol inhaler duloxetine 60 mg capsule,delayed 60 mg PO DAILY 10/27/22 02/01/24 release lactulose 10 gram/15 mL oral syrup 20 g PO BID 02/12/23 02/01/24 levothyroxine 50 mcg capsule 50 mcg PO AC 02/12/23 02/01/24 furosemide 40 mg tablet 40 mg PO QDAY PRN Edema 03/08/23 02/01/24 atorvastatin 20 mg tablet 20 mg PO DAILY 02/01/24 02/01/24 pregabalin 100 mg capsule 100 mg PO TID 02/01/24 02/01/24 Previous Rx's ?Medication ?Instructions ?Recorded apixaban 5 mg tablet (Eliquis) 5 mg PO BID #60 tabs 02/14/23 naloxone 4 mg/actuation nasal 4 mg intranasal Q2M PRN opioid 02/03/24 spray (Narcan) overdose #2 ea Allergies Allergy/AdvReac Type Severity Reaction Status Date / Time Penicillins Allergy Severe Anaphylaxis Verified 05/14/24 00:00 erythromycin base AdvReac Intermediate Abdominal Verified 05/14/24 00:00 Pain lorazepam (From Ativan) AdvReac Intermediate COULDN'T Verified 05/14/24 00:00 TALK Review of Systems Review of Systems Systems Reviewed: All systems reviewed, normal except as documented Past Medical History Past Medical History NEUROLOGIC: Negative Neurological Disorders, Dementia or Seizures CARDIAC: Positive Hypercholesterolemia and Hypertension; Negative Cardiac Disorders, Atrial Fibrillation, Coronary Artery Disease or Congestive Heart Failure RESPIRATORY: Positive Chronic Obstructive Pulmonary Disease (COPD), Asthma, Smoking and Tobacco Use GASTROINTESTINAL: Positive Gastroesophageal Reflux Disease; Negative Gastrointestinal Disorders, Cirrhosis or Celiac Disease GENITOURINARY: Positive Genitourinary Disorders (swollen left kidney); Negative Renal Disease MUSCULOSKELETAL: Positive Arthritis, Osteoporosis, Degenerative Disk Disease and Fractures; Negative Musculoskeletal Disorders, Muscular Dystrophy or Bone Cancer ENDOCRINE: Negative Diabetes Mellitus Type 1 or Diabetes Mellitus Type 2 (patient denies) HEMATOLOGIC: Positive Anemia; Negative Sickle Cell Disease PSYCHO/SOCIAL: Positive Recreational Drug Use and Depression OTHER HISTORY: Positive Blood Transfusions; Negative Down Syndrome, Developmental Delay, Blood Transfusion Reaction or Anesthesia Reactions Family History FAMILY HISTORY: Positive Family Cardiac Disorders and Family Cancer Surgical History SURGICAL: Positive Abdominal Surgery, Gastric Bypass Surgery, Lumpectomy and Section Social History SMOKING STATUS: Current every day smoker SUBSTANCE USE: methamphetamine ED Exam Narrative Physical exam: Right leg: Erythema and warmth present along the medial and lateral aspects. Left leg: Notable for a 6x8 cm area of induration (hardness) on the posterior-lateral aspect, extending medially into the proximal thigh. Area is tender to palpation but without discharge or signs of lymphangitis. No additional bruising noted. Pulses: Distal pulses are intact bilaterally. General Limitations: Present no limitations General appearance: Present alert, in no apparent distress and other (appears dehydrated, shallow, guppy breathing, wearing an adult diaper.) Head Head exam: Present atraumatic, normocephalic and normal inspection Eye Eye exam: Present normal appearance, PERRL and EOMI ENT ENT exam: Present normal exam, normal oropharynx and mucous membranes moist Neck Neck exam: Present normal inspection, full ROM and trachea midline Chest Chest inspection: Present normal inspection and symmetric chest wall rise Respiratory Respiratory exam: Present normal lung sounds bilaterally Cardiovascular Cardiovascular exam: Present regular rate, normal rhythm and normal heart sounds Abdominal Exam Abdominal exam: Present soft, distention, normal bowel sounds and other (Distended with a well-healed thick scar noted in the left upper quadrant. No tenderness or guarding.) Extremities Exam Extremities exam: Present normal inspection and full ROM Back Exam Back exam: Present normal inspection and full ROM Neurological Exam Neurological exam: Present alert, oriented X3 and CN II-XII intact Psychiatric Psychiatric exam: Present normal affect and normal mood Skin Skin exam: Present warm, dry, intact and normal color Course Course Course Narrative: 0045 Sepsis alert initiated. Orders made at this time are congruent with ED Adult Sepsis Order List. Re-evaluation is to be completed. 0120 Sepsis reassessment performed consisting of lab review, vitals, physical exam including auscultation of heart, lungs, and visual evaluation of capillary refills, mucosal membranes and extremities. 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 Q4H START 00 Care 05/14/24 00:45 Active EKG (ED ONLY) *Do not use* NOW Care 05/14/24 00:17 Completed In and Out Catheter X1 Care 05/14/24 01:18 Completed Insert IV NOW Care 05/14/24 00:45 Active Miscellaneous Nursing Order NOW Care 05/14/24 04:42 Active Notify provider NEEDED Care 05/14/24 04:42 Active Strict Intake and Output Routine Care 05/14/24 00:45 Ordered Diet Regular Diet 05/14/[address] lower extremity BI w Stat Exams 05/14/24 01:24 Taken EKG (ED Only) Stat Exams 05/14/24 00:16 Draft US venous doppler LE BI Stat Exams 05/14/24 00:17 Taken XR chest 1V SEPSIS PROTOCOL Stat Exams 05/14/24 00:45 Taken BNP [B-Type Natriuretic Peptide] Stat Lab 05/14/24 00:30 Completed Blood Culture (Lab) Stat Lab 05/14/24 00:50 Received CBC AM DRAW Lab 05/14/24 05:00 Ordered CBC AM DRAW Lab 05/15/24 05:00 Ordered CBC AM DRAW Lab 05/16/24 05:00 Ordered CBC Stat Lab 05/14/24 00:30 Completed CMP [Comprehensive Metabolic Panel] Stat Lab 05/14/24 00:30 Completed Comprehensive Metabolic Panel AM DRAW Lab 05/14/24 05:00 Ordered Comprehensive Metabolic Panel AM DRAW Lab 05/15/24 05:00 Ordered Comprehensive Metabolic Panel AM DRAW Lab 05/16/24 05:00 Ordered Lactate (Lactic Acid) Stat Lab 05/14/24 00:30 Completed Lactic Acid, 3 HR Stat Lab 05/14/24 03:48 Completed Magnesium AM DRAW Lab 05/14/24 05:00 Ordered PT [Prothrombin Time with INR] Stat Lab 05/14/24 00:30 Completed PTT [Partial Thromboplastin Time] Stat Lab 05/14/24 00:30 Completed Procalcitonin Stat Lab 05/14/24 00:30 Completed Thyroid Stimulating Hormone AM DRAW Lab 05/14/24 05:00 Ordered Troponin I Stat Lab 05/14/24 00:30 Completed Urinalysis Stat Lab 05/14/24 01:15 Completed Urine Culture Stat Lab 05/14/24 01:15 Received Acetaminophen Tab [Tylenol Tab] Med 05/14/24 04:42 Discontinued 650 mg PO Q6H PRN HYDROcodone*/APAP 5/325 [[place] 5/325] Med 05/14/24 04:42 Active 1 tab PO Q6HR PRN Lactulose Syrup [Enulose Syrup] Med 05/14/24 04:42 Active 20 gm PO QDAY PRN Ondansetron Inj [Zofran Inj] Med 05/14/24 04:42 Active 4 mg IV Q6H PRN Potassium Chloride [K-Dur] Med 05/14/24 01:18 Discontinued 40 meq PO X1 ONE Sodium Chloride 0.9% 1000 ml [Ns] 1,000 ml Med 05/14/24 03:33 Discontinued IV 999 mls/hr Sodium Chloride 0.9% 1000 ml [Ns] 1,000 ml Med 05/14/24 04:17 Discontinued IV 999 mls/hr Vancomycin Inj 1,000 mg Med 05/14/24 01:19 Discontinued Sodium Chloride 0.9% 250 ml [Ns] 250 ml IV X1 Code Status Routine Oth 05/14/24 04:42 Ordered EKG (RT) Stat RT 05/14/24 00:45 Ordered Oxygen Delivery NOW RT 05/14/24 00:45 Active Vital Signs Vital signs: Vital Signs Temperature 98.3 F 05/13/24 23:57 Pulse Rate 101 H 05/13/24 23:57 Respiratory Rate 19 05/13/24 23:57 Blood Pressure 111/67 05/13/24 23:57 Pulse Oximetry (%) 97 05/13/24 23:57 Oxygen Delivery Method Room Air 05/13/24 23:57 Extremity Problem MDM Narrative MDM Narrative:: 64-year-old female with a complex medical history including chronic venous insufficiency with LLE ulceration, left DVT on Eliquis, and alcoholic liver disease, presents with worsening pain, redness, and swelling of the left posterior calf following minor trauma 3?4 days ago. Differential diagnoses include cellulitis, abscess, DVT, dehydration, electrolyte abnormality, mass ECG at 0109 shows normal sinus rhythm with a heart rate of 94 bpm, left axis deviation, and poor R-wave progression per my interpretation. Case d/w Dr. Cota, hospitalist, who accepts patient for inpatient admission. Scribe Attestation: I, Samreen Oconnor, am scribing for and in the presence of Dr. Sanchez. Provider Notation: Although this document has been carefully reviewed, there may still be some phonetic and other typographical errors. These errors are purely grammatical due to imperfections in the software program and should not be construed in any way to compromise the substance of the patient's medical care during this visit. Patient data External records reviewed:: [facility] previous records and EMS form Clinical information provided by:: patient and EMS Social determinants that could affect healthcare access:: substance use Patient has the following chronic illnesses:: see PMH How is presenting disease/condition affected by chronic disease/condition?: uneffected by Evaluation data The following diagnostics were reviewed and interpreted by me:: lab results and radiology exam(s) Lab and/or radiology exams considered but not ordered:: n/a Interpretation Summary: Bilateral lower extremity venous Doppler ultrasound. May 14, 2024 0130 hours Clinical history: 64-year-old bilateral left greater than right swelling. Findings: Garcia scale, color flow and spectral Doppler evaluation of the lower extremity deep veins was performed. Right: The common femoral, superficial femoral and popliteal veins are patent and compressible. Normal respiratory variation is noted. The great saphenous vein is patent at the level of the saphenofemoral junction. The posterior tibial and peroneal veins are patent and compressible. Left: The common femoral, superficial femoral and popliteal veins are patent and compressible. Normal respiratory variation is noted. The great saphenous vein is patent at the level of the saphenofemoral junction. The posterior tibial and peroneal veins are patent and compressible. Avascular structure with septations seen in the left calf region, measuring 6.7 x 2.8 x 6.6 cm. Impression: No evidence of deep venous thrombosis in both lower extremities. Avascular structure with septations in the left calf region, likely representing a hematoma. Recommend clinical correlation and followup. Report Electronically Signed By: Severo Gardner 05/14/2024 2:41:22 AM [EST] Medications / Prescriptions Medications or Prescriptions considered but not ordered:: n/a Medication administrations:: Medication Administration History Hydrocodone Bitart/Acetaminophen (Hydrocodone/Apap 5/325 Tablet) 1 tab PO Q6HR PRN PRN Reason: PAIN SCALE 4-6 (Moderate Stop: 05/19/24 04:41 Aztreonam 2,000 mg/ Sodium (Chloride) 100 mls @ 100 mls/hr IV Q8HR DA Stop: 05/21/24 05:01 Aztreonam 2,000 mg/ Sodium (Chloride) 100 mls @ 100 mls/hr IV X1 ONE Stop: 05/14/24 06:14 Ibuprofen (Ibuprofen Tab 600 Mg Tablet) 600 mg PO Q6HR PRN PRN Reason: PAIN OR FEVER > 101 Stop: 06/13/24 04:48 Lactulose (Lactulose Syrup 20 Gm/30 Ml Udc) 20 gm PO QDAY PRN; Protocol PRN Reason: constipation Stop: 06/13/24 08:59 Levothyroxine Sodium (Levothyroxine Sodium 25 Mcg Tablet) 50 mcg PO ACBR DA Stop: 06/13/24 05:59 Ondansetron HCl (Ondansetron Inj 2 Mg/Ml Inj 2 Ml) 4 mg IV Q6H PRN; Protocol PRN Reason: NAUSEA OR VOMITING Stop: 06/13/24 04:41 Pharmacy Consult (Vancomycin Pharmacy To Dose 1 Each Each) 1 each IV QDAY DA Stop: 06/13/24 08:59 Discontinued Medications Acetaminophen (Acetaminophen 325 Mg Tablet) 650 mg PO Q6H PRN PRN Reason: Fever >101.5 Stop: 06/13/24 04:41 Vancomycin HCl 1,000 mg/ (Sodium Chloride) 250 mls @ 150 mls/hr IV X1 ONE Stop: 05/14/24 02:58 Last Infusion: 05/14/24 03:50 Dose: Infused Documented By: Admin: 05/14/24 02:09 Dose: 150 mls/hr Documented By: LIZ Sodium Chloride (Ns) 1,000 mls @ 999 mls/hr IV .Q1H1M ONE Stop: 05/14/24 04:33 Last Admin: 05/14/24 03:48 Dose: 999 mls/hr Documented By: LIZ Sodium Chloride (Ns) 1,000 mls @ 999 mls/hr IV .Q1H1M ONE Stop: 05/14/24 05:17 Last Admin: 05/14/24 05:07 Dose: 999 mls/hr Documented By: LIZ Potassium Chloride (Potassium Chloride 20 Meq Tabcr) 40 meq PO X1 ONE Stop: 05/14/24 01:19 Last Admin: 05/14/24 02:27 Dose: 40 meq Documented By: LIZ as above, if any Consultations Consultation(s) initiated? (list below): Yes Consultation #1 (Physician, Specialty, Details): Case d/w Dr. Cota who accepts patient for admission. Diagnosis Extremity Problem Differential Diagnosis: other (see MDM) Most likely diagnosis given after review of the tests above:: see clinical impression below. Admission Indicated Admission indicated?: indicated Admission Request Was there a request for admission?: Yes Admission Attestation Admission request attestation: Discussed case with [] from Hospitalist service regarding admission. Discussed patients ED course, exam findings, labs, and radiology results. The Hospitalist [agrees,declines] to accept the patient for admission. Disposition Plan Disposition Plan: Admit Critical Care Time Critical Care Time Critical Care Time: Yes Total Critical Care Time (min.): 45 Attestation: The high probability of sudden, clinically significant deterioration in the patient?s condition required the highest level of my preparedness to intervene urgently. ? The services I provided to this patient were to treat and/or prevent clinically significant deterioration. Services included the following: chart data review, reviewing nursing notes and/or old charts, documentation time, community resource consultant collaboration regarding findings and treatment options, medication orders and management, direct patient care, vital sign assessments and ordering, interpreting and reviewing diagnostic studies and lab tests. ? Aggregate critical care time includes only time during which I was engaged in work directly related to the patient?s care, as described above, whether at bedside or elsewhere in the Emergency Department. It did not include time spent performing other reported procedures or the services of residents, students, nurses or physician assistants. Discharge Plan Plan Patient Disposition: Admit Acute Care w/in Hospital Problem List Clinical Impression: Sepsis, Cellulitis of leg, right, Acute hypokalemia, Hematoma
--- NOTE | 2024-05-14 00:16 | EKG_ITS ---
[facility] Test Date: 2024-05-14 Pat Name: EDUARDO SINGH Department: Room: - Gender: Female Dramatic Director: : 1960 Requested By: Hoda Osorio Order Number: [id number] Reading MD: Hoda Osorio Measurements Intervals [place] Rate: 94 P: 58 AL: 156 QRS: -40 QRSD: 114 T: 64 QT: 383 QTc: 481 Interpretive Statements SINUS RHYTHM LEFT AXIS DEVIATION [QRS AXIS < -30] PATTERN CONSISTENT WITH PULMONARY DISEASE MODERATE INTRAVENTRICULAR CONDUCTION DELAY [105+ ms QRS DURATION, 80+ ms Q/S IN V1/V2, NO Q AND 60+ ms R IN I/aVL/V5/V6] Compared to ECG 01/30/2024 19:25:04 Intraventricular conduction delay now present Ventricular premature complex(es) no longer present Myocardial infarct finding no longer present T-wave abnormality no longer present Possible ischemia no longer present /store/S0/[id number]/ecg/[id number].pdf
--- NOTE | 2024-05-14 00:17 | XR_ITS ---
Examination: Venous duplex lower extremity sonogram, bilateral. Date and time of exam: May 14, 2024 0130 hours INDICATIONS: Bilateral leg swelling and pain beginning 4 days ago Technique: Multiple sonographic images of the deep venous system have been obtained. B-mode/2-D grayscale imaging of vascular structures and Doppler spectral analysis (waveforms) and color performed Both legs are examined. Findings: Deep venous systems do not demonstrate abnormal echogenicity. All visualized deep veins exhibit compressibility. All visualized deep veins exhibit augmentation. Impression: Negative for deep vein thrombosis 6.7 x 6.6 cm cystic mass in the left calf, consider hematoma
--- NOTE | 2024-05-14 00:26 | PC.NURSE ---
pt a/o brought to er by ambulance from home for complaints of left calf pain x1 week. pt reports she smashed her leg in between the toilet. pt left calf red with swelling, area hard to touch. right lower leg red and warm to touch. dr self and at bedside. pt reports history of dvts in left leg. states uses wheelchair to get around at home. pt has healing wound to left big toe, reports wound care comes to home to dress wound.
[2024-05-14 00:39] LABS: Basophils # (Auto) 0.1 Thou/mm3 (0.0-0.2); Basophils % (Auto) 1 % (0-2.5); Eosinophils # (Auto) 0.1 Thou/mm3 (0.0-0.5); Eosinophils % (Auto) 1 % (0-10); Hematocrit 32.6 % (36.0-46.0); Hemoglobin 9.8 g/dL (12.0-16.0); Immature Granulocytes % (Auto) 1 % (0-0); Immature Granulocytes Auto 0.05 Thou/mm3 (0.00-0.00); Lymphocytes # (Auto) 2.9 Thou/mm3 (1.0-4.8); Lymphocytes % (Auto) 44 % (10-50); Mean Corpuscular HGB Conc 30.1 g/dl (31.0-37.0); Mean Corpuscular Hemoglobin 28.8 pg (25.0-35.0); Mean Corpuscular Volume 96 fL (80-100); Monocytes # (Auto) 0.8 Thou/mm3 (0.0-0.8); Monocytes % (Auto) 12 % (0-12); Neutrophils # (Auto) 2.7 Thou/mm3 (1.8-7.7); Neutrophils % (Auto) 41 % (37-80); Nucleated Red Blood Cell # 0.02 Thou/mm3 (0.00-0.00); Nucleated Red Blood Cell % 0 /100 WBC (0); Platelet Count 160 Thou/mm3 (140-440); RDW Standard Deviation 72.3 fL (36.4-46.3); White Blood Count 6.6 Thou/mm3 (3.6-11.0)
[2024-05-14 00:42] LABS: Lactate (Lactic Acid) 7.3 mMol/L (0.4-2.0)
--- NOTE | 2024-05-14 00:45 | XR_ITS ---
Examination: AP chest single view Technique one AP portable upright chest single view Exam date and time: 15/03/2024 0220 hours Comparison February 11, 2023 INDICATIONS: Sepsis protocol FINDINGS: Normal heart size Lungs are clear. The osseous structures are intact IMPRESSION: No active disease
[2024-05-14 00:54] LABS: INR 1.2 (0.9-1.3); Partial Thromboplastin Time 25.4 Seconds (22.0-36.0)
[2024-05-14 00:57] LABS: B-Type Natriuretic Peptide 45 pg/mL (0-100)
[2024-05-14 01:07] LABS: Alanine Aminotransferase 97 U/L (10-49); Albumin, Serum 2.6 gm/dL (3.4-4.8); Albumin/Globulin Ratio 0.7 (1.2-2.2); Alkaline Phosphatase 258 U/L (46-116); Anion Gap 12 (7-16); Aspartate Amino Transferase 203 U/L (0-34); BUN/Creatinine Ratio 9 Ratio (12-20); Bilirubin,Total 0.6 mg/dL (0.3-1.2); Blood Urea Nitrogen 6 mg/dL (9-23); Calcium 7.8 mg/dL (8.3-10.6); Calcium (Corrected) 8.9 mg/dL (8.5-10.1); Carbon Dioxide 21.7 mMol/L (20.0-31.0); Chloride 105 mMol/L (98-107); Creatinine (Component) 0.7 mg/dL (0.6-1.3); Estimated Creatinine Clearance 92.8 mL/min (>60); Globulin 3.5 gm/dL (2.3-3.5); Glucose 142 mg/dL (74-106); Osmolality,Calculated 277 (275-295); Potassium 2.9 mMol/L (3.4-5.1); Procalcitonin 0.21 ng/ml (0.0-0.49); Sodium 139 mMol/L (136-145); Total Protein 6.1 gm/dL (5.7-8.2); Troponin I < 0.002 ng/mL (0.0-0.045); eGFR > 60 See Note
--- NOTE | 2024-05-14 01:14 | EVENTNT_ITS ---
Documentation for date of: 05/14/24 Event Note Event Note: A 64-year-old female presented to the ER with the chief complaint of left lower extremity pain. The patient reports that approximately one week ago she became stuck between her wheelchair and the toilet, resulting in pain to the left posterior-lateral calf. Over the past 3?4 days, the area has become increasingly red, swollen, and tender. She reports the pain is more severe on the left side, though both legs appear red and swollen. She is unable to ambulate and describes significant worsening over the last two days. She denies shortness of breath or fever. The patient has a history of DVT on Eliquis, alcoholic liver cirrhosis, LT foot drop after fibular fracture, chronic radicular back pain, hypothyroidism, depression, B/L knee osteoarthritis, and primary hypertension. Surgical history includes cholecystectomy, appendectomy, exploratory laparotomy, and two C- sections. Social history includes daily alcohol use (a few shots per day of [place]?[employer]), tobacco use (half-pack per day since age 18), and no drug use. She has ongoing depression and has spoken with a plant production worker, with plans for entry into rehab. She has three children and lives under family supervision. She uses a wheelchair for mobility and has chronic functional limitations. In the ER, vital signs recorded as temp 98.3 F, HR 101, RR 19, BP 111/67 mmHg. Labs revealed WBC 6.6, Hb 9.7, Plt 160, Na 139, K 2.9 (L), BUN 6, Cr 0.7, glucose 142, lactic acid 7.3 (H), AST 203 (H), ALT 97 (H). The patient was admitted for cellulitis. Left leg Bilateral Lower Extremity Cellulitis #Assessment: - Progressive erythema, swelling, and tenderness over 3?4 days after mechanical trauma (wheelchair injury) - Atraumatic onset with bilateral leg redness but asymmetric severity (left > right) - Vital signs: HR 101, normothermic, normotensive - Labs: Lactic acidosis (7.3), hypokalemia, mild anemia, normal WBC, no leukocytosis - Underlying risk factors: immobility, chronic edema, history of DVT on Eliquis, alcoholic liver disease #Plan: - Initiate IV antibiotics: Vancomycin + Aztreonam (covering MRSA and gram- negative) - Trend lactic acid levels and monitor for clinical signs of systemic infection - Elevate affected extremity, limit dependent positioning - CT leg, monitor for signs of abscess or necrotizing infection - DVT study - Correct hypokalemia - CIWA protocol - Monitor renal function and liver enzymes - Pain control: scheduled acetaminophen, avoid NSAIDs due to cirrhosis
[2024-05-14 01:20] LABS: Collection Type, Urine Catheter
--- NOTE | 2024-05-14 01:24 | XR_ITS ---
Examination: CT bilateral lower extremities without intravenous contrast, 2-D sagittal reconstructions. 2-D coronal reconstructions. 3-D reconstructions. Date and time of exam:May 14, 2024 at 0331 hours INDICATIONS: Bilateral lower leg swelling and pain beginning 2 months ago, history trauma to the left leg the left calf one week ago CTDI: vol (mGy):12.8 DLP: (mGycm):1500 Technique: Multiple 1.25 mm axial sections of the bilateral extremities without intravenous contrast have been obtained. 2-D sagittal and coronal reconstructions have been obtained. 3-D reconstructions have been obtained. Low dose protocols were performed. One or more of the following dose reduction techniques were used; automated exposure control, adjustment of the mA and/or KV according to patient size, use of iterative reconstruction technique. Findings: Urinary bladder intact No pelvic mass Cellulitis pattern in the lateral thigh regions Cortex of the right and left femur intact More pronounced edema in the subcutaneous fatty tissue surrounding the lower thigh as well as the lower legs Mass in the posterior left calf region 5.0 x 1.8 x 6.8 cm most consistent with hematoma IMPRESSION: Extensive cellulitis pattern Negative for osteomyelitis Mass in the posterior left calf 5.0 x 1.8 x 6.8 cm most consistent with hematoma
[2024-05-14 01:29] LABS: Bacteria,Urine 1+; Bilirubin,Urine Negative (Negative); Blood,Urine Negative (Negative); Clarity,Urine Turbid (Clear/Hazy); Color,Urine Yellow (Lt Yel-Yel); Glucose, Urine Negative (Negative); Ketones,Urine Negative (Negative); Leukocyte Esterase,Urine Positive (Negative); Nitrite,Urine Negative (Negative); Protein,Urine Trace (Neg - Trace); RBC,Urine < 1 /hpf (0-3); Specific Gravity,Urine 1.014 (1.001-1.035); Squamous Epithelial Cell,Urine 8 /hpf (0-5); WBC,Urine 7 /hpf (0-5)
[2024-05-14] MEDS: Vancomycin Inj 1,000 MG in SODIUM CHLORIDE 0.9% 250 ML 250 ML 150 MG IV (02:09)
[2024-05-14] MEDS: POTASSIUM CHLORIDE 20 mEq TABCR 40 MEQ PO ×2 (02:27→09:15)
--- NOTE | 2024-05-14 02:41 | PRELIM_ITS ---
Bilateral lower extremity venous Doppler ultrasound. May 14, 2024 0130 hours Clinical history: 64-year-old bilateral left greater than right swelling. Findings: Garcia scale, color flow and spectral Doppler evaluation of the lower extremity deep veins was performed. Right: The common femoral, superficial femoral and popliteal veins are patent and compressible. Normal respiratory variation is noted. The great saphenous vein is patent at the level of the saphenofemoral junction. The posterior tibial and peroneal veins are patent and compressible. Left: The common femoral, superficial femoral and popliteal veins are patent and compressible. Normal respiratory variation is noted. The great saphenous vein is patent at the level of the saphenofemoral junction. The posterior tibial and peroneal veins are patent and compressible. Avascular structure with septations seen in the left calf region, measuring 6.7 x 2.8 x 6.6 cm. Impression: No evidence of deep venous thrombosis in both lower extremities. Avascular structure with septations in the left calf region, likely representing a hematoma. Recommend clinical correlation and followup. Report Electronically Signed By: Severo Gardner 05/14/2024 2:41:22 AM [EST]
--- NOTE | 2024-05-14 02:45 | PD.RESHP ---
Documentation for date of: 05/14/24 [facility] History of Present Illness Chief complaint: Left lower extremity swelling History of present illness: 64 year-old female with significant past medical history of alcoholic liver cirrhosis, Eliquis, left fibular fracture, chronic back pain, hypothyroidism, depression, bilateral osteoarthritis of knee, left tibial fracture was brought to the hospital with chief complaints of pain and swelling in the left lower extremity. Patient lives alone at home and she has a care provider who comes and helps her out, patient is mostly bedbound or wheelchair-bound but able to take care of herself and able to transfer herself from the wheelchair to the bed. Patient was apparently normal 1 week ago, then when she had an episode of getting her leg stuck between the railing on the toilet seat and her wheelchair and stayed in that position for a long time, unsure of the exact duration. Later patient helped herself out and then to the bed since then patient developed redness and swelling in the left calf. Over the last 1 week the swelling and pain got worsened and as patient is unable to tolerate the pain despite taking a [place] patient was brought to the hospital. Denies fever, nausea, vomitings, chest pain, palpitations ED course:-Initial vitals are blood pressure 111/67 mmHg, pulse rate 101 bpm, respiratory rate 19/min, temperature 98.3 ?F -Labs showed WBC 6.6, Hb 9.8 platelets 160, sodium 139, potassium 2.9, BUN 6, creatinine 0.7, lactate 7.8, AST 203, ALT 97, procalcitonin 0.21. -Chest x-ray did not show any infiltrates -Patient is admitted for cellulitis of left lower extremity Past medical history: DVT on Eliquis, cirrhosis, left fibular fracture, left tibial fracture, chronic back pain, hypothyroidism, depression, bilateral knee osteoarthritis, hypertension Past surgical history: Cholecystectomy, appendectomy, 2 sections, exploratory laparotomy, gastric bypass Social history: Denies alcohol, smoking, other illicit drug abuse Allergies: Penicillin, azithromycin, Ativan Review of Systems Review of Systems Systems Reviewed: All systems reviewed, normal except as documented Past Medical History Past Medical History NEUROLOGIC: Negative Neurological Disorders, Dementia or Seizures CARDIAC: Positive Hypercholesterolemia and Hypertension; Negative Cardiac Disorders, Atrial Fibrillation, Coronary Artery Disease or Congestive Heart Failure RESPIRATORY: Positive Chronic Obstructive Pulmonary Disease (COPD), Asthma, Smoking and Tobacco Use GASTROINTESTINAL: Positive Gastroesophageal Reflux Disease; Negative Gastrointestinal Disorders, Cirrhosis or Celiac Disease GENITOURINARY: Positive Genitourinary Disorders (swollen left kidney); Negative Renal Disease MUSCULOSKELETAL: Positive Arthritis, Osteoporosis, Degenerative Disk Disease and Fractures; Negative Musculoskeletal Disorders, Muscular Dystrophy or Bone Cancer ENDOCRINE: Negative Diabetes Mellitus Type 1 or Diabetes Mellitus Type 2 (patient denies) HEMATOLOGIC: Positive Anemia; Negative Sickle Cell Disease PSYCHO/SOCIAL: Positive Recreational Drug Use and Depression OTHER HISTORY: Positive Blood Transfusions; Negative Down Syndrome, Developmental Delay, Blood Transfusion Reaction or Anesthesia Reactions Family History FAMILY HISTORY: Positive Family Cardiac Disorders and Family Cancer Surgical History SURGICAL: Positive Abdominal Surgery, Gastric Bypass Surgery, Lumpectomy and Section Social History SMOKING STATUS: Current every day smoker SUBSTANCE USE: methamphetamine Exam Vital Signs Temp Pulse Resp BP Pulse Ox O2 Del Method 98.3 F 101 H 19 111/67 97 Room Air 05/13/24 23:57 05/13/24 23:57 05/13/24 23:57 05/13/24 23:57 05/13/24 23:57 05/13/24 23:57 Narrative Exam General: Awake. obese. In moderate distress. HEENT: Normocephalic, atraumatic, mucous membranes moist. Heart: Regular rate and rhythm, no murmurs. Lungs: Clear to auscultation with no wheezing or crackles. Abdomen: Soft, nondistended, nontender, positive bowel sounds. ?No guarding or rebound tenderness. Right subcostal and midline scar Neurologic: Alert and oriented x3, no gross neurological deficit, and patient able to move all 4 extremities. Extremities: Erythema and fiffuse swelling noted on right side with minimal tenderness, localised swelling, fluctuant in the left calf with erythema and localised rise of temperature, severe tenderness noted. Skin: No rash or ecchymoses. Results: Labs 05/14/24 05:38 05/14/24 05:38 Labs: Short CBC 05/14/24 Range/Units 00:30 WBC 6.6 (3.6-11.0) Thou/mm3 Hgb 9.8 L (12.0-16.0) g/dL Hct 32.6 L (36.0-46.0) % Plt Count 160 (140-440) Thou/mm3 BMP 05/14/24 00:30 Sodium 139 Potassium 2.9 L Chloride 105 Carbon Dioxide 21.7 BUN 6 L Creatinine 0.7 Glucose 142 H Calcium 7.8 L Cardiac Enzymes 05/14/24 Range/Units 00:30 Troponin I < 0.002 (0.0-0.045) ng/mL Liver Function 05/14/24 Range/Units 00:30 Total Bilirubin 0.6 (0.3-1.2) mg/dL AST 203 H (0-34) U/L ALT 97 H (10-49) U/L Alkaline Phosphatase 258 H (46-116) U/L Albumin 2.6 L (3.4-4.8) gm/dL Urine 05/14/24 Range/Units 01:15 Urine Color Yellow (Lt Yel-Yel) Urine Clarity Turbid A (Clear/Hazy) Urine pH 6.0 (5.0-7.0) Ur Specific [place] 1.014 (1.001-1.035) Urine Protein Trace (Neg - Trace) Urine Glucose (UA) Negative (Negative) Quality Measures Quality Measures none Medications Home Medications and Allergies Home Medications ?Medication ?Instructions ?Recorded ?Confirmed ?Type albuterol sulfate 90 mcg/actuation 2 inh inhalation Q6H PRN wheeze 10/27/22 02/01/24 History aerosol inhaler duloxetine 60 mg capsule,delayed 60 mg PO DAILY 10/27/22 02/01/24 History release lactulose 10 gram/15 mL oral syrup 20 g PO BID 02/12/23 02/01/24 History levothyroxine 50 mcg capsule 50 mcg PO AC 02/12/23 02/01/24 History furosemide 40 mg tablet 40 mg PO QDAY PRN Edema 03/08/23 02/01/24 History atorvastatin 20 mg tablet 20 mg PO DAILY 02/01/24 02/01/24 History pregabalin 100 mg capsule 100 mg PO TID 02/01/24 02/01/24 History Allergies Allergy/AdvReac Type Severity Reaction Status Date / Time Penicillins Allergy Severe Anaphylaxis Verified 05/14/24 00:00 erythromycin base AdvReac Intermediate Abdominal Verified 05/14/24 00:00 Pain lorazepam (From Ativan) AdvReac Intermediate COULDN'T Verified 05/14/24 00:00 TALK Visit Medications Vancomycin HCl 1,000 mg/ (Sodium Chloride) 250 mls @ 150 mls/hr IV X1 ONE Stop: 05/14/24 02:58 Last Admin: 05/14/24 02:09 Dose: 150 mls/hr Discontinued Medications Potassium Chloride (Potassium Chloride 20 Meq Tabcr) 40 meq PO X1 ONE Stop: 05/14/24 01:19 Last Admin: 05/14/24 02:27 Dose: 40 meq Assessment & Plan Plan A 64 year-old female with significant past medical history of alcoholic liver cirrhosis, Eliquis, left fibular fracture, chronic back pain, hypothyroidism, depression, bilateral osteoarthritis of knee, left tibial fracture was brought to the hospital with chief complaints of pain and swelling in the left lower extremity and admitted for cellulitis # Left lower extremity cellulitis # Left lower extremity hematoma 2/2 trauma in the [facility] -Patient presented to the hospital with pain, swelling and redness in the left calf since 1 week after she sustained mild trauma -Reported that pain did not get relieved even with opioids -Denies fever, chest pain, shortness of breath -Vitals are stable at the time of admission -Labs showed WBC 6.6, lactate 7.3, AST 203, ALT 97, procalcitonin 0.21 Plan -Blood cultures were sent -Bilateral venous Doppler that showed No evidence of deep venous thrombosis in both lower extremities. Avascular structure with septations in the left calf region, likely representing a hematoma -Lower extremity CT was ordered -Patient received 1 dose of vancomycin in the ED -Will continue vancomycin + Azactam(05/14 - -Received 2 L fluid in the ED # Lactic acidosis -Lactate at the time of admission is 7.3 -Patient received 1 L of fluid in the ED and repeat lactate showed 6.3 -Patient is started on 1 L of fluid in the ED Plan -Repeat lactate is ordered -Recommended to continue fluids as needed # Transaminitis -At the time of admission AST is 203, ALT is 97 -Likely elevated in the setting of acute stress plan -Recommended to continue to monitor liver enzymes # Chronic anemia, normocytic normochromic -Patient found to have anemia since many years -Hemoglobin at the time of admission is 9.8 Plan -Iron panel is ordered -FOBT is ordered # Hypokalemia -Potassium at the time of admission is 2.9 -40 mill equivalents of oral potassium is given Plan -Magnesium is ordered -Recommended to monitor electrolytes and replete accordingly # History of unprovoked DVT, on Eliquis -Patient admitted to the hospital with the hematoma 2/2 trauma -Patient continued to take Eliquis and is following a vascular surgeon, seen recent Plan -Held Eliquis for now -Resume if the hematoma is not expanding # History of hypothyroidism -Patient is using 50 mcg of thyroxine at home -Resume her medication -TSH is ordered # Chronic back pain -Patient is using [place] at home -Resumed [place] [facility] Maintenance: Dispo: Medsurg DVT ppx: Eliquis held for now, SCDs cannot be done as patient is having swelling and pain in the lower extremities GI ppx: Not needed Diet: Regular IV lines: Peripheral Code status: DNR Patient plan of care was discussed with the attending physician, Dr. Cipriano Ly, PGY1 Attending Provider Attestation/Addendum Pt was evaluated and plan formulated together with the housestaff team. I have reviewed the residents note above and agree with most of its content. Please refer to the residents note for additional details.
[2024-05-14 03:36] LABS: Reflex Lactate? Y
[2024-05-14] MEDS: SODIUM CHLORIDE 0.9% 1000 ML 1,000 ML 999 ML IV ×2 (03:48→05:07)
[2024-05-14 03:53] LABS: Lactic Acid, 3 HR 6.3 mMol/L (0.4-2.0)
[2024-05-14 05:49] LABS: Basophils # (Auto) 0.1 Thou/mm3 (0.0-0.2); Basophils % (Auto) 1 % (0-2.5); Eosinophils # (Auto) 0.1 Thou/mm3 (0.0-0.5); Eosinophils % (Auto) 2 % (0-10); Hematocrit 30.8 % (36.0-46.0); Hemoglobin 9.3 g/dL (12.0-16.0); Immature Granulocytes % (Auto) 1 % (0-0); Immature Granulocytes Auto 0.03 Thou/mm3 (0.00-0.00); Lymphocytes # (Auto) 2.4 Thou/mm3 (1.0-4.8); Lymphocytes % (Auto) 45 % (10-50); Mean Corpuscular HGB Conc 30.2 g/dl (31.0-37.0); Mean Corpuscular Hemoglobin 29.5 pg (25.0-35.0); Mean Corpuscular Volume 98 fL (80-100); Monocytes # (Auto) 0.7 Thou/mm3 (0.0-0.8); Monocytes % (Auto) 13 % (0-12); Neutrophils % (Auto) 38 % (37-80); Nucleated Red Blood Cell # 0.02 Thou/mm3 (0.00-0.00); Nucleated Red Blood Cell % 0 /100 WBC (0); Platelet Count 151 Thou/mm3 (140-440); RDW Standard Deviation 72.8 fL (36.4-46.3); Red Blood Count 3.15 Miln/mm3 (4.00-5.20); White Blood Count 5.3 Thou/mm3 (3.6-11.0)
[2024-05-14 05:53] LABS: Lactate (Lactic Acid) 5.6 mMol/L (0.4-2.0)
[2024-05-14 06:11] LABS: Iron 18 mcg/dL (50-170); Percent Iron Saturation 6 % (20-55); Total Iron Binding Capacity 279 mcg/dL (250-425); Unsaturated Iron Binding 261 (225-295)
[2024-05-14 06:15] LABS: Alanine Aminotransferase 85 U/L (10-49); Albumin, Serum 2.5 gm/dL (3.4-4.8); Albumin/Globulin Ratio 0.8 (1.2-2.2); Alkaline Phosphatase 228 U/L (46-116); Anion Gap 11 (7-16); Aspartate Amino Transferase 184 U/L (0-34); BUN/Creatinine Ratio 14 Ratio (12-20); Bilirubin,Total 0.6 mg/dL (0.3-1.2); Blood Urea Nitrogen 7 mg/dL (9-23); Calcium 8.1 mg/dL (8.3-10.6); Calcium (Corrected) 9.3 mg/dL (8.5-10.1); Carbon Dioxide 23.6 mMol/L (20.0-31.0); Chloride 106 mMol/L (98-107); Creatinine (Component) 0.5 mg/dL (0.6-1.3); Estimated Creatinine Clearance 129.9 mL/min (>60); Globulin 3.3 gm/dL (2.3-3.5); Glucose 97 mg/dL (74-106); Magnesium 1.3 mg/dL (1.6-2.6); Osmolality,Calculated 279 (275-295); Potassium 3.2 mMol/L (3.4-5.1); Sodium 141 mMol/L (136-145); Thyroid Stimulating Hormone 3.09 uIU/mL (0.55-4.78); Total Protein 5.8 gm/dL (5.7-8.2); eGFR > 60 See Note
[2024-05-14] MEDS: HYDROcodone/APAP 5/325 TABLET 1 TAB PO ×3 (06:36→23:46)
[2024-05-14] MEDS: LEVOTHYROXINE SODIUM 25 MCG TABLET 50 MCG PO (06:37)
[2024-05-14] MEDS: AZTREONAM INJ 2,000 MG in SODIUM CHLORIDE 0.9% (POP) 100 ML 100 MG IV (06:55)
[2024-05-14] MEDS: FOLIC ACID 1 MG TABLET PO ×2 (08:14→20:18)
[2024-05-14] MEDS: SODIUM CHLORIDE 0.9% 1000 ML 1,000 ML 100 ML IV ×2 (08:14→17:57)
[2024-05-14] MEDS: THIAMINE 100 MG TABLET PO ×2 (08:14→20:17)
[2024-05-14 08:40] LABS: Reflex Lactate? Y
[2024-05-14] MEDS: Magnesium Sulfate 4 GM Ivpb 4 GM/50 ML BAG IV (09:15)
[2024-05-14 09:49] LABS: Lactic Acid, 3 HR 5.8 mMol/L (0.4-2.0)
[2024-05-14] MEDS: VANCOMYCIN/WATER 1250 MG IVPB 250 ML 120 MG IV (10:33)
--- NOTE | 2024-05-14 11:09 | PRELIM_ITS ---
CT scan of both lower extremities with intravenous contrast (axial sections with sagittal and coronal reformats) May 14, 2024 at 0331 hours Clinical History: r/o abscess, hematoma Comparison: Correlated with the prior US doppler study performed earlier today. Findings: No fracture or dislocation is noted. Degenerative changes are noted at the patellofemoral and tibiofemoral joints bilaterally in the form of decreased joint space, periarticular osteophytes and subchondral sclerosis. There is an irregular sclerotic density in the left calcaneum, which may represent an infarct. No joint effusion is noted. The visualized muscles are unremarkable with maintained intermuscular fat planes. There is a 6 x 2.5 x 9.5 cm (TR x AP x CC) hematoma in the subcutaneous plane of the left posterior calf. No active contrast extravasation. There is diffuse soft tissue edema in bilateral lower extremities. No discrete abscess. Impression: 1. No significant osseous or articular abnormality. 2. Cellulitis of bilateral lower extremities. 3. No evidence of abscess. 4. Hematoma in the subcutaneous plane of the left posterior calf. No active hemorrhage. Report Electronically Signed By: Ortiz Mccarty 05/14/2024 11:08:41 AM [EST]
--- NOTE | 2024-05-14 11:30 | PD.RESPRO ---
Documentation for date of: 05/14/24 Subjective Subjective Interval history: Fabiola Caban is a 64-year-old predominantly wheelchair-bound female with a past medical history of cirrhosis secondary to alcohol use, unprovoked DVT on Eliquis, hypothyroidism, hypertension, depression, bilateral knee osteoarthritis who presents to [facility] with pain and swelling of left lower extremity. Approximately 1 week ago, patient was using the restroom and was transferring to her wheelchair when her left lower extremity became stuck between the toilet and her wheelchair for an unknown duration. She was eventually able to get herself out and develop redness, swelling, and pain in her left calf. Over the course of the week the pain worsened despite taking [place] and presented to the ED. 05/14: Seen and examined at bedside. States that hematoma and left lower extremity continues to be painful but managed well with current regimen. Otherwise, she has no other complaints. Upon further history taking, she continues to drink approximately 2-3 shots of hard liquor per night and at times more. Also states that she was a previous smoker and was told she has a history of COPD. Exam Vital Signs Temp Pulse Resp BP Pulse Ox O2 Del Method O2 Flow Rate 97.6 F 103 H 19 128/77 94 L Room Air 2 05/14/24 08:00 05/14/24 08:00 05/14/24 08:00 05/14/24 08:00 05/14/24 08:00 05/14/24 08:00 05/14/24 03:21 Narrative Exam General: AOx3, in mild distress, able to speak full sentences HEENT: NC/AT, mucous membranes moist, bilateral sclera anicteric Cardiovascular: regular rate and rhythm, S1/S2 present, no murmurs appreciated Pulmonary: clear to auscultation bilaterally, no rales/rhonchi/wheezes Abdominal: obese, soft, non-tender, non-distended, no rebound/guarding, normal bowel sounds present Musculoskeletal: b/l lower extremity edema, RLE erythematous compared to LLE, LLE with hematoma on calf Skin: warm and dry, intact, no rashes Neuro: CN II-XII intact, no focal deficits Objective Labs 05/15/24 05:22 05/15/24 05:22 Labs: Laboratory Results - last 24 hr 05/14/24 05/14/24 05/14/24 00:30 01:15 03:48 WBC 6.6 RBC 3.40 L Hgb 9.8 L Hct 32.6 L MCV 96 MCH 28.8 MCHC 30.1 L RDW Std Deviation 72.3 H Plt Count 160 Neut % (Auto) 41 Lymph % (Auto) 44 [place] % (Auto) 12 Eos % (Auto) 1 Baso % (Auto) 1 Neut # (Auto) 2.7 Lymph # (Auto) 2.9 [place] # (Auto) 0.8 Eos # (Auto) 0.1 Baso # (Auto) 0.1 Immature Gran # (Auto) 0.05 H Absolute Nucleated RBC 0.02 H Immature Gran % 1 H Nucleated RBC % 0 PT 13.0 H INR 1.2 APTT 25.4 Sodium 139 Potassium 2.9 L Chloride 105 Carbon Dioxide 21.7 Anion Gap 12 BUN 6 L Creatinine 0.7 Estim Creat Clear Calc 92.8 eGFR > 60 BUN/Creatinine Ratio 9 L Glucose 142 H Calculated Osmolality 277 Lactic Acid 7.3 H* 6.3 H* Calcium 7.8 L Corrected Calcium 8.9 Magnesium Iron TIBC Iron Saturation Unsat Iron Binding Total Bilirubin 0.6 AST 203 H ALT 97 H Alkaline Phosphatase 258 H Troponin I < 0.002 B-Natriuretic Peptide 45 Total Protein 6.1 Albumin 2.6 L Globulin 3.5 Albumin/Globulin Ratio 0.7 L Procalcitonin 0.21 TSH Ur Collection Type Catheter Urine Color Yellow Urine Clarity Turbid A Urine pH 6.0 Ur Specific [place] 1.014 Urine Protein Trace Urine Glucose (UA) Negative Urine Ketones Negative Urine Blood Negative Urine Nitrite Negative Urine Bilirubin Negative Urine Urobilinogen (Auto) 6.0 Ur Leukocyte Esterase Positive Urine RBC < 1 Urine WBC 7 H Ur Squamous Epith Cells 8 H Urine Bacteria 1+ A 05/14/24 05/14/24 05:38 08:40 WBC 5.3 RBC 3.15 L Hgb 9.3 L Hct 30.8 L MCV 98 MCH 29.5 MCHC 30.2 L RDW Std Deviation 72.8 H Plt Count 151 Neut % (Auto) 38 Lymph % (Auto) 45 [place] % (Auto) 13 H Eos % (Auto) 2 Baso % (Auto) 1 Neut # (Auto) 2.0 Lymph # (Auto) 2.4 [place] # (Auto) 0.7 Eos # (Auto) 0.1 Baso # (Auto) 0.1 Immature Gran # (Auto) 0.03 H Absolute Nucleated RBC 0.02 H Immature Gran % 1 H Nucleated RBC % 0 PT INR APTT Sodium 141 Potassium 3.2 L Chloride 106 Carbon Dioxide 23.6 Anion Gap 11 BUN 7 L Creatinine 0.5 L Estim Creat Clear Calc 129.9 eGFR > 60 BUN/Creatinine Ratio 14 Glucose 97 Calculated Osmolality 279 Lactic Acid 5.6 H* 5.8 H* Calcium 8.1 L Corrected Calcium 9.3 Magnesium 1.3 L Iron 18 L TIBC 279 Iron Saturation 6 L Unsat Iron Binding 261 Total Bilirubin 0.6 AST 184 H ALT 85 H Alkaline Phosphatase 228 H D Troponin I B-Natriuretic Peptide Total Protein 5.8 Albumin 2.5 L Globulin 3.3 Albumin/Globulin Ratio 0.8 L Procalcitonin TSH 3.09 Ur Collection Type Urine Color Urine Clarity Urine pH Ur Specific [place] Urine Protein Urine Glucose (UA) Urine Ketones Urine Blood Urine Nitrite Urine Bilirubin Urine Urobilinogen (Auto) Ur Leukocyte Esterase Urine RBC Urine WBC Ur Squamous Epith Cells Urine Bacteria Quality Measures Quality Measures none Assessment & Plan Assessment Current Active Medications: Generic Name Dose Route Start Last Admin Trade Name Freq PRN Reason Stop Dose Admin Hydrocodone Bitart/Acetaminophen 1 tab 05/14/24 05:46 05/14/24 06:36 Hydrocodone/Apap 5/325 Tablet PO 05/19/24 04:41 1 tab Q6HR PRN Administration Pain Scale 6-10 Chlordiazepoxide HCl 25 mg 05/14/24 05:33 Chlordiazepoxide Hcl 25 Mg Capsule PO 05/16/24 05:32 Q8HR PRN ALCOHOL WITHDRAWAL Clindamycin HCl 300 mg 05/14/24 12:00 Clindamycin 150 Mg Capsule PO 05/21/24 11:59 QID DA Folic Acid 1 mg 05/14/24 09:00 05/14/24 08:14 Folic Acid 1 Mg Tablet PO 05/19/24 08:59 1 mg BID DA Administration Sodium Chloride 1,000 mls @ 100 mls/hr 05/14/24 06:36 05/14/24 08:14 Ns IV 06/13/24 06:35 100 mls/hr .Q10H DA Administration Magnesium Sulfate 4 gm in 50 mls @ 12.5 mls/hr 05/14/24 08:15 05/14/24 09:15 Magnesium Sulfate Ivpb IV 05/14/24 12:14 12.5 mls/hr X1 ONE Administration Ibuprofen 600 mg 05/14/24 04:49 Ibuprofen Tab 600 Mg Tablet PO 06/13/24 04:48 Q6HR PRN PAIN 1-3 OR FEVER > 101 Lactulose 20 gm 05/14/24 04:42 Lactulose Syrup 20 Gm/30 Ml Udc PO 06/13/24 08:59 QDAY PRN constipation Protocol Levothyroxine Sodium 50 mcg 05/14/24 06:00 05/14/24 06:37 Levothyroxine Sodium 25 Mcg Tablet PO 06/13/24 05:59 50 mcg ACBR DA Administration Ondansetron HCl 4 mg 05/14/24 04:42 Ondansetron Inj 2 Mg/Ml Inj 2 Ml IV 06/13/24 04:41 Q6H PRN NAUSEA OR VOMITING Protocol Thiamine HCl 100 mg 05/14/24 09:00 05/14/24 08:14 Thiamine 100 Mg Tablet PO 05/19/24 08:59 100 mg BID DA Administration Plan Fabiola Caban is a 64-year-old predominantly wheelchair-bound female with a past medical history of cirrhosis secondary to alcohol use, unprovoked DVT on Eliquis, hypothyroidism, hypertension, depression, bilateral knee osteoarthritis who presents to [facility] with pain and swelling of left lower extremity. Approximately 1 week ago, patient was using the restroom and was transferring to her wheelchair when her left lower extremity became stuck between the toilet and her wheelchair for an unknown duration. She was eventually able to get herself out and develop redness, swelling, and pain in her left calf. Over the course of the week the pain worsened despite taking [place] and presented to the ED. #Left lower extremity cellulitis #Left lower extremity hematoma 2/2 trauma in the setting of Eliquis Tenderness, swelling, erythema on posterior left calf 1 week after incident. No leukocytosis, afebrile. Venous Doppler BLE: Negative for DVT, hematoma left lower extremity CT BLE: Extensive cellulitis and lower thighs as well as lower legs, hematoma and left calf Vancomycin and aztreonam (05/14) ? General Surgery consulted, appreciate recommendations ? Warm compress 20 minutes at a time ? Reevaluate need for anticoagulation ? No indication for surgical intervention ? Clindamycin 300 mg p.o. 4 times daily ? Blood culture 05/14: Pending ? Pain management: Ibuprofen 600 mg q6hr, [place] 5 q6hr, morphine 1 mg q6hr #Lactic acidosis, improving Lactate at time of admission 7.3, currently improving on IVF ? NS at 100 cc/h ? Trend lactate #Alcohol use #Transaminitis At time of admission AST 203, ALT 97 consistent with alcohol use Last drink on evening of 05/13 and drinks 2-3 shots of hard liquor per day ? CIWA protocol ? Chlordiazepoxide 25 mg p.o. TID #Chronic normocytic, normochromic anemia Noted to have anemia since for many years Hemoglobin at the time of admission is 9.8, iron 18, iron saturation 6% ? Ferrous sulfate every other day #Hypokalemia #Hypomagnesemia ? Monitor electrolytes and replete accordingly #History of unprovoked DVT, on Eliquis Admitted to hospital with hematoma 2/2 trauma Patient continues to take Eliquis and is following a vascular surgeon who she has seen recently ? Eliquis held #History of hypothyroidism TSH wnl ? Home levothyroxine 50 mcg #Chronic back pain ? Pain management as above Hospital Maintenance: Dispo: Medsurg DVT ppx: Eliquis held for now, SCDs cannot be done as patient is having swelling and pain in the lower extremities GI ppx: Not needed Diet: Regular IV lines: Peripheral Code status: DNR ----- Plan discussed with attending physician Dr. Florina Thompson MD PGY-1 Internal Medicine Attending Provider Attestation/Addendum I reviewed labs, imaging, EKG, home medications and prior available records. Face to face evaluation was performed by me. I have personally examined the patient and discussed assessment and plan with the IM team. I reviewed the resident note and agree with the plan with exceptions as below. Left leg hematoma Left lower extremity cellulitis Lactic acidosis Alcohol abuse Alcohol withdrawal Alcoholic cirrhosis Transaminitis Chronic normocytic anemia Held Eliquis Monitor H&H: Stable Consulted general surgery: Recommended warm compressors. No indication for surgery at this time Switched antibiotics to clindamycin Continue IV fluids. Trend lactic acid Monitor LFTs Started Librium 25 mg 3 times daily. Noted benzodiazepines on the allergy list however this is likely side effects
--- NOTE | 2024-05-14 13:01 | PC.SS ---
SS follow up note; Patient is on IV ABX, pending Blood cultures.
--- NOTE | 2024-05-14 13:06 | PD.SURCONS ---
HPI Consult details History of present illness: 64F with HTN, DVT on eliquis, cirrhosis, left tib/fib fractures admitted with pain and swelling of the left leg. Pt states her leg became stuck between the toilet seat and wheelchair for some time last week, and since then she noted increasing pain and swelling prompting her to visit ER. In ER pt was afebrile with normal WBC and procal, underwent CT of the LLE showing a mass in the posterior calf up to 6.8cm consistent with hematoma PMH: HTN, DVT, cirrhosis, left tib fib fractures, hypothyroidism PSHx: Cholecystectomy, appendectomy, Csection x2, gastric bypass Meds: includes eliquis Allergies: PCN, erythromycin, ativan Review of Systems Review of Systems ROS Unobtainable: All systems reviewed & no additional complaints except as documented Meds Home Medications and Allergies Home Medications ?Medication ?Instructions ?Recorded ?Confirmed ?Type albuterol sulfate 90 mcg/actuation 2 inh inhalation Q6H PRN wheeze 10/27/22 02/01/24 History aerosol inhaler duloxetine 60 mg capsule,delayed 60 mg PO DAILY 10/27/22 02/01/24 History release lactulose 10 gram/15 mL oral syrup 20 g PO BID 02/12/23 02/01/24 History levothyroxine 50 mcg capsule 50 mcg PO AC 02/12/23 02/01/24 History furosemide 40 mg tablet 40 mg PO QDAY PRN Edema 03/08/23 02/01/24 History atorvastatin 20 mg tablet 20 mg PO DAILY 02/01/24 02/01/24 History pregabalin 100 mg capsule 100 mg PO TID 02/01/24 02/01/24 History Allergies Allergy/AdvReac Type Severity Reaction Status Date / Time Penicillins Allergy Severe Anaphylaxis Verified 05/14/24 00:00 erythromycin base AdvReac Intermediate Abdominal Verified 05/14/24 00:00 Pain lorazepam (From Ativan) AdvReac Intermediate COULDN'T Verified 05/14/24 00:00 TALK Exam Vital Signs Temp Pulse Resp BP Pulse Ox O2 Del Method O2 Flow Rate 97.6 F 103 H 19 128/77 94 L Room Air 2 05/14/24 12:00 05/14/24 12:00 05/14/24 12:00 05/14/24 12:00 05/14/24 12:00 05/14/24 12:00 05/14/24 03:21 Constitutional Constitutional: no acute distress Routine Respiratory Exam Respiratory: Present no resp distress Routine Extremities Exam Comments: left lower extremity posterior calf area of swelling just distal to knee which is tender, indurated, not fluctuant, no erythema Results Results: Laboratory Laboratory results: results reviewed Results: Imaging Imaging narrative: CT LLE reviewed Assessment & Plan Plan 64F with HTN, DVT on eliquis, cirrhosis, left tib/fib fractures admitted with pain and swelling of the left leg, findings consistent with a traumatic hematoma which does not show signs of infection Warm compresses to the area 20 minutes at a time Reevaluate need for anticoagulation No indication for surgical intervention, pls reconsult as needed
[2024-05-14] MEDS: CLINDAMYCIN 150 MG CAPSULE 300 MG PO ×3 (13:32→20:18)
[2024-05-14] MEDS: chlordiazePOXIDE HCl 25 MG CAPSULE PO ×2 (13:33→21:09)
--- NOTE | 2024-05-14 14:52 | PC.SS ---
Patient Fabiola is a 64 Year old female admitted for Hematoma of left leg. SS met with patient at bedside, patient reports she lives at home and has an [facility] provider who is Babs Odell and is patient's surrogate decision maker [phone]. Patient reports she needs assistance completing ADL's, patient utilizes a wheelchair to assist with ambulation. Choice of pharmacy is [facility]. Patient's PCP is Ny Vázquez. Patient reports she gets 121 Hrs a month for [facility]. Patient reports her [facility] provider will provide transportation at time of discharge. next of kin: friend Babs odell discharge plan: home
--- NOTE | 2024-05-14 16:43 | PC.PT ---
PT eval only. Patient is xI with bed mobility and transfers into her wheelchair which is her baseline. Patient is safe to transfer to the commode. RN made aware.
[2024-05-14 17:05] LABS: Reflex Lactate? Y
[2024-05-14] MEDS: FERROUS SULF 325 MG TABLET PO (17:56)
[2024-05-14 18:02] LABS: Lactic Acid, 3 HR 4.3 mMol/L (0.4-2.0)
[2024-05-14] MEDS: MORPHINE SULF INJ 10 MG/ML VIAL IVP (19:10)
[2024-05-14 21:11] LABS: Lactate (Lactic Acid) 3.6 mMol/L (0.4-2.0)
[2024-05-15 00:09] LABS: Reflex Lactate? Y
[2024-05-15 00:39] LABS: Lactic Acid, 3 HR 3.4 mMol/L (0.4-2.0)
[2024-05-15 04:00] VITALS: BP 116/71; PULSE 87; RESP 18; TEMP 36.4; O2SAT 91
[2024-05-15] MEDS: LEVOTHYROXINE SODIUM 25 MCG TABLET 50 MCG PO (05:07)
[2024-05-15] MEDS: chlordiazePOXIDE HCl 25 MG CAPSULE PO ×3 (05:07→21:23)
[2024-05-15] MEDS: CLINDAMYCIN 150 MG CAPSULE 300 MG PO ×4 (05:07→21:22)
[2024-05-15 06:22] LABS: Basophils # (Auto) 0.1 Thou/mm3 (0.0-0.2); Basophils % (Auto) 1 % (0-2.5); Eosinophils # (Auto) 0.1 Thou/mm3 (0.0-0.5); Eosinophils % (Auto) 2 % (0-10); Hematocrit 31.1 % (36.0-46.0); Hemoglobin 9.3 g/dL (12.0-16.0); Immature Granulocytes % (Auto) 1 % (0-0); Immature Granulocytes Auto 0.03 Thou/mm3 (0.00-0.00); Lymphocytes # (Auto) 1.2 Thou/mm3 (1.0-4.8); Lymphocytes % (Auto) 29 % (10-50); Mean Corpuscular HGB Conc 29.9 g/dl (31.0-37.0); Mean Corpuscular Hemoglobin 29.4 pg (25.0-35.0); Mean Corpuscular Volume 98 fL (80-100); Monocytes # (Auto) 0.5 Thou/mm3 (0.0-0.8); Monocytes % (Auto) 13 % (0-12); Neutrophils # (Auto) 2.4 Thou/mm3 (1.8-7.7); Neutrophils % (Auto) 55 % (37-80); Nucleated Red Blood Cell % 0 /100 WBC (0); Platelet Count 123 Thou/mm3 (140-440); RDW Standard Deviation 76.2 fL (36.4-46.3); Red Blood Count 3.16 Miln/mm3 (4.00-5.20); White Blood Count 4.3 Thou/mm3 (3.6-11.0)
[2024-05-15 06:50] LABS: Alanine Aminotransferase 94 U/L (10-49); Albumin, Serum 2.4 gm/dL (3.4-4.8); Albumin/Globulin Ratio 0.8 (1.2-2.2); Alkaline Phosphatase 245 U/L (46-116); Anion Gap 6 (7-16); Aspartate Amino Transferase 234 U/L (0-34); BUN/Creatinine Ratio 10 Ratio (12-20); Bilirubin,Total 1.1 mg/dL (0.3-1.2); Blood Urea Nitrogen < 5 mg/dL (9-23); Calcium 7.7 mg/dL (8.3-10.6); Carbon Dioxide 27.3 mMol/L (20.0-31.0); Chloride 108 mMol/L (98-107); Creatinine (Component) 0.5 mg/dL (0.6-1.3); Estimated Creatinine Clearance 145.4 mL/min (>60); Globulin 3.2 gm/dL (2.3-3.5); Glucose 88 mg/dL (74-106); Magnesium 1.7 mg/dL (1.6-2.6); Osmolality,Calculated 277 (275-295); Phosphorous 1.8 mg/dL (2.4-5.1); Potassium 4.1 mMol/L (3.4-5.1); Sodium 141 mMol/L (136-145); Total Protein 5.6 gm/dL (5.7-8.2); eGFR > 60 See Note
[2024-05-15] MEDS: LORazepam 0.5 MG TABLET PO (07:00)
[2024-05-15] MEDS: SODIUM CHLORIDE 0.9% 1000 ML 1,000 ML 100 ML IV (07:03)
[2024-05-15 08:00] VITALS: BP 110/67; PULSE 99; RESP 18; TEMP 36.2; O2SAT 98
[2024-05-15] MEDS: THIAMINE 100 MG TABLET PO ×2 (08:17→21:22)
[2024-05-15] MEDS: FOLIC ACID 1 MG TABLET PO ×2 (08:17→21:23)
[2024-05-15] MEDS: HYDROcodone/APAP 5/325 TABLET 1 TAB PO ×2 (10:11→19:18)
[2024-05-15] MEDS: LORazepam 0.5 MG TABLET 1 MG PO (10:11)
[2024-05-15 12:00] VITALS: BP 100/84; PULSE 87; RESP 18; TEMP 36.2; O2SAT 98
[2024-05-15 13:48] VITALS: BP 134/83; PULSE 114
[2024-05-15] MEDS: Furosemide 40 MG TABLET PO (13:48)
[2024-05-15 14:15] LABS: Lactate (Lactic Acid) 3.1 mMol/L (0.4-2.0)
[2024-05-15] MEDS: Magnesium Sulfate 4 GM Ivpb 4 GM/50 ML BAG IV (15:09)
[2024-05-15 16:00] VITALS: BP 97/66; PULSE 104; RESP 18; TEMP 36.4; O2SAT 98
--- NOTE | 2024-05-15 16:40 | PD.RESPRO ---
Documentation for date of: 05/15/24 Subjective Subjective Interval history: Patient is seen and examined at bedside Appears to be anxious and having chills all over the body, likely from the alcohol withdrawal Vitals are stable. Lactate levels started trending down from 3.4-3.1, clearance is low likely due to the cirrhosis secondary to alcohol use disorder Patient is placed on CIWA protocol Hematoma site is examined and will continue to monitor whether the hematoma expanding or not, will resume Eliquis based on that Exam Vital Signs Temp Pulse Resp BP Pulse Ox O2 Del Method O2 Flow Rate 97.2 F 114 H 18 134/83 H 98 Room Air 2 05/15/24 12:00 05/15/24 13:48 05/15/24 12:00 05/15/24 13:48 05/15/24 12:00 05/15/24 12:00 05/14/24 03:21 Narrative Exam General: Awake. HEENT: Normocephalic, atraumatic, mucous membranes moist. Heart: Regular rate and rhythm, no murmurs. Lungs: Clear to auscultation with no wheezing or crackles. Abdomen: Soft, nondistended, nontender, positive bowel sounds. ?No guarding or rebound tenderness. Neurologic: Alert and oriented x3, no gross neurological deficit, and patient able to move all 4 extremities. Extremities: Hematoma on the left calf, foot drop noted in the left foot Skin: No rash or ecchymoses. Objective Labs 05/16/24 05:34 05/16/24 05:34 Labs: Laboratory Results - last 24 hr 05/14/24 05/14/24 05/15/24 17:20 20:59 00:21 WBC RBC Hgb Hct MCV MCH MCHC RDW Std Deviation Plt Count Neut % (Auto) Lymph % (Auto) [place] % (Auto) Eos % (Auto) Baso % (Auto) Neut # (Auto) Lymph # (Auto) [place] # (Auto) Eos # (Auto) Baso # (Auto) Immature Gran # (Auto) Absolute Nucleated RBC Immature Gran % Nucleated RBC % Sodium Potassium Chloride Carbon Dioxide Anion Gap BUN Creatinine Estim Creat Clear Calc eGFR BUN/Creatinine Ratio Glucose Calculated Osmolality Lactic Acid 4.3 H* 3.6 H 3.4 H Calcium Corrected Calcium Phosphorus Magnesium Total Bilirubin AST ALT Alkaline Phosphatase Total Protein Albumin Globulin Albumin/Globulin Ratio 05/15/24 05/15/24 05:22 14:10 WBC 4.3 RBC 3.16 L Hgb 9.3 L Hct 31.1 L MCV 98 MCH 29.4 MCHC 29.9 L RDW Std Deviation 76.2 H Plt Count 123 L Neut % (Auto) 55 Lymph % (Auto) 29 [place] % (Auto) 13 H Eos % (Auto) 2 Baso % (Auto) 1 Neut # (Auto) 2.4 Lymph # (Auto) 1.2 [place] # (Auto) 0.5 Eos # (Auto) 0.1 Baso # (Auto) 0.1 Immature Gran # (Auto) 0.03 H Absolute Nucleated RBC 0.00 Immature Gran % 1 H Nucleated RBC % 0 Sodium 141 Potassium 4.1 D Chloride 108 H Carbon Dioxide 27.3 Anion Gap 6 L BUN < 5 L Creatinine 0.5 L Estim Creat Clear Calc 145.4 eGFR > 60 BUN/Creatinine Ratio 10 L Glucose 88 Calculated Osmolality 277 Lactic Acid 3.1 H Calcium 7.7 L Corrected Calcium 9.0 Phosphorus 1.8 L Magnesium 1.7 Total Bilirubin 1.1 D AST 234 H ALT 94 H Alkaline Phosphatase 245 H Total Protein 5.6 L Albumin 2.4 L Globulin 3.2 Albumin/Globulin Ratio 0.8 L Quality Measures Quality Measures none Assessment & Plan Assessment Current Active Medications: Generic Name Dose Route Start Last Admin Trade Name Freq PRN Reason Stop Dose Admin Hydrocodone Bitart/Acetaminophen 1 tab 05/14/24 05:46 05/15/24 10:11 Hydrocodone/Apap 5/325 Tablet PO 05/19/24 04:41 1 tab Q6HR PRN Administration Pain Scale 6-10 Chlordiazepoxide HCl 25 mg 05/14/24 14:00 05/15/24 13:49 Chlordiazepoxide Hcl 25 Mg Capsule PO 05/19/24 13:59 25 mg TID DA Administration Clindamycin HCl 300 mg 05/14/24 12:00 05/15/24 12:04 Clindamycin 150 Mg Capsule PO 05/21/24 11:59 300 mg QID DA Administration Ferrous Sulfate 325 mg 05/14/24 15:45 05/14/24 17:56 Ferrous Sulf 325 Mg Tablet PO 06/13/24 15:44 325 mg QOD DA Administration Folic Acid 1 mg 05/14/24 09:00 05/15/24 08:17 Folic Acid 1 Mg Tablet PO 05/19/24 08:59 1 mg BID DA Administration Furosemide 40 mg 05/15/24 12:15 05/15/24 13:48 Furosemide 40 Mg Tablet PO 06/14/24 12:14 40 mg QDAY DA Administration Magnesium Sulfate 4 gm in 50 mls @ 12.5 mls/hr 05/15/24 14:24 05/15/24 15:09 Magnesium Sulfate Ivpb IV 05/15/24 18:23 12.5 mls/hr X1 ONE Administration Ibuprofen 600 mg 05/14/24 04:49 Ibuprofen Tab 600 Mg Tablet PO 06/13/24 04:48 Q6HR PRN PAIN 1-3 OR FEVER > 101 Lactulose 20 gm 05/14/24 04:42 Lactulose Syrup 20 Gm/30 Ml Udc PO 06/13/24 08:59 QDAY PRN constipation Protocol Levothyroxine Sodium 50 mcg 05/14/24 06:00 05/15/24 05:07 Levothyroxine Sodium 25 Mcg Tablet PO 06/13/24 05:59 50 mcg ACBR DA Administration Lorazepam 1 mg 05/15/24 09:50 05/15/24 10:11 Lorazepam 0.5 Mg Tablet PO 05/20/24 09:49 1 mg Q4HR PRN Administration CIWA SCORE 7-11 Lorazepam 2 mg 05/15/24 09:50 Lorazepam 0.5 Mg Tablet PO 05/20/24 09:49 Q4HR PRN CIWA SCORE 12-15 Morphine Sulfate 1 mg 05/14/24 12:15 05/14/24 19:10 Morphine Sulf Inj 10 Mg/Ml Vial IVP 05/19/24 12:14 1 mg Q6HR PRN Administration BREAKTHROUGH PAIN (SEVERE) Protocol Ondansetron HCl 4 mg 05/14/24 04:42 Ondansetron Inj 2 Mg/Ml Inj 2 Ml IV 06/13/24 04:41 Q6H PRN NAUSEA OR VOMITING Protocol Thiamine HCl 100 mg 05/14/24 09:00 05/15/24 08:17 Thiamine 100 Mg Tablet PO 05/19/24 08:59 100 mg BID DA Administration Plan Fabiola Caban is a 64-year-old predominantly wheelchair-bound female with a past medical history of cirrhosis secondary to alcohol use, 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 #Left lower extremity cellulitis #Left lower extremity hematoma 2/2 trauma in the setting of Eliquis Tenderness, swelling, erythema on posterior left calf 1 week after incident. No leukocytosis, afebrile. Venous Doppler BLE: Negative for DVT, hematoma left lower extremity CT BLE: Extensive cellulitis and lower thighs as well as lower legs, hematoma and left calf Vancomycin and aztreonam (05/14) ? General Surgery consulted, appreciate recommendations ? Warm compress 20 minutes at a time ? Reevaluate need for anticoagulation ? No indication for surgical intervention ? Clindamycin 300 mg p.o. 4 times daily ? Blood culture 05/14: Pending ? Pain management: Ibuprofen 600 mg q6hr, [place] 5 q6hr, morphine 1 mg q6hr #Lactic acidosis, improving Lactate at time of admission 7.3, currently improved to 3.1 ? will trend lactate #Alcohol use #Transaminitis At time of admission AST 203, ALT 97 consistent with alcohol use Last drink on evening of 05/13 and drinks 2-3 shots of hard liquor per day ? CIWA protocol ? Chlordiazepoxide 25 mg p.o. TID #Chronic normocytic, normochromic anemia Noted to have anemia since for many years Hemoglobin at the time of admission is 9.8, iron 18, iron saturation 6% ? Ferrous sulfate every other day #Hypokalemia, resolved #Hypomagnesemia, resolved ? Monitor electrolytes and replete accordingly #History of unprovoked DVT, on Eliquis Admitted to hospital with hematoma 2/2 trauma Patient continues to take Eliquis and is following a vascular surgeon who she has seen recently ? Eliquis held #History of hypothyroidism TSH wnl ? Home levothyroxine 50 mcg #Chronic back pain ? Pain management as above Hospital Maintenance: Dispo: Medsurg DVT ppx: Eliquis held for now, SCDs cannot be done as patient is having swelling and pain in the lower extremities GI ppx: Not needed Diet: Regular IV lines: Peripheral Code status: DNR Patient plan of care was discussed with the attending physician, Dr. Heaton and senior resident Dr. Jane Ly, PGY1 Attending Provider Attestation/Addendum I reviewed labs, imaging, EKG, home medications and prior available records. Face to face evaluation was performed by me. I have personally examined the patient and discussed assessment and plan with the IM team. I reviewed the resident note and agree with the plan with exceptions as below. Left leg hematoma Left lower extremity cellulitis Lactic acidosis Alcohol abuse Alcohol withdrawal Alcoholic cirrhosis Transaminitis Chronic normocytic anemia Held Eliquis Monitor H&H: Stable Consulted general surgery: Recommended warm compressors. No indication for surgery at this time Switched antibiotics to clindamycin Continue IV fluids. Trend lactic acid: Improved Monitor LFTs Started Librium 25 mg 3 times daily. Noted benzodiazepines on the allergy list however this is likely side effects and patient tolerated it Ordered PT: Recommended home health with caregiver
[2024-05-15 17:12] LABS: Reflex Lactate? Y
[2024-05-15 17:53] LABS: Lactic Acid, 3 HR 2.6 mMol/L (0.4-2.0)
[2024-05-15 20:00] VITALS: BP 107/60; PULSE 98; RESP 20; TEMP 36.2; O2SAT 99
--- NOTE | 2024-05-15 21:55 | PC.NURSE ---
informed Dr. Spencer regarding patient c/o cramping in her hands and fingers, patient states it is a chronic condition, patient has had it even at home. Patient states she does not take anything for the cramps in her hands. No new orders received.
[2024-05-15 22:10] LABS: Vancomycin,Trough 3.9 mcg/mL (5.0-10.0)
[2024-05-16] VITALS (7 sets, daily range): BP systolic 96–136; BP diastolic 58–86; PULSE 92–109; RESP 18–22; TEMP 36.4–36.8; O2SAT 92–97
[2024-05-16] MEDS: HYDROcodone/APAP 5/325 TABLET 1 TAB PO ×3 (01:11→17:14)
[2024-05-16] MEDS: LEVOTHYROXINE SODIUM 25 MCG TABLET 50 MCG PO (05:47)
[2024-05-16] MEDS: CLINDAMYCIN 150 MG CAPSULE 300 MG PO ×4 (05:47→20:31)
[2024-05-16] MEDS: chlordiazePOXIDE HCl 25 MG CAPSULE PO ×2 (05:48→20:33)
[2024-05-16 05:52] LABS: Lactate (Lactic Acid) 2.2 mMol/L (0.4-2.0)
[2024-05-16 05:58] LABS: Basophils % (Auto) 1 % (0-2.5); Eosinophils # (Auto) 0.1 Thou/mm3 (0.0-0.5); Eosinophils % (Auto) 3 % (0-10); Hematocrit 30.2 % (36.0-46.0); Immature Granulocytes % (Auto) 1 % (0-0); Immature Granulocytes Auto 0.05 Thou/mm3 (0.00-0.00); Lymphocytes # (Auto) 1.3 Thou/mm3 (1.0-4.8); Lymphocytes % (Auto) 31 % (10-50); Mean Corpuscular HGB Conc 29.8 g/dl (31.0-37.0); Mean Corpuscular Hemoglobin 29.5 pg (25.0-35.0); Mean Corpuscular Volume 99 fL (80-100); Monocytes # (Auto) 0.6 Thou/mm3 (0.0-0.8); Monocytes % (Auto) 13 % (0-12); Neutrophils # (Auto) 2.3 Thou/mm3 (1.8-7.7); Neutrophils % (Auto) 52 % (37-80); Nucleated Red Blood Cell % 0 /100 WBC (0); Platelet Count 139 Thou/mm3 (140-440); RDW Standard Deviation 77.6 fL (36.4-46.3); Red Blood Count 3.05 Miln/mm3 (4.00-5.20); White Blood Count 4.4 Thou/mm3 (3.6-11.0)
[2024-05-16 07:47] LABS: Alanine Aminotransferase 79 U/L (10-49); Albumin, Serum 2.3 gm/dL (3.4-4.8); Albumin/Globulin Ratio 0.7 (1.2-2.2); Alkaline Phosphatase 224 U/L (46-116); Anion Gap 5 (7-16); Aspartate Amino Transferase 176 U/L (0-34); BUN/Creatinine Ratio 8 Ratio (12-20); Bilirubin,Total 0.8 mg/dL (0.3-1.2); Blood Urea Nitrogen < 5 mg/dL (9-23); Calcium 7.8 mg/dL (8.3-10.6); Calcium (Corrected) 9.2 mg/dL (8.5-10.1); Carbon Dioxide 28.1 mMol/L (20.0-31.0); Chloride 109 mMol/L (98-107); Creatinine (Component) 0.6 mg/dL (0.6-1.3); Estimated Creatinine Clearance 121.1 mL/min (>60); Globulin 3.1 gm/dL (2.3-3.5); Glucose 100 mg/dL (74-106); Osmolality,Calculated 280 (275-295); Potassium 3.6 mMol/L (3.4-5.1); Sodium 142 mMol/L (136-145); Total Protein 5.4 gm/dL (5.7-8.2); eGFR > 60 See Note
[2024-05-16 08:52] LABS: Reflex Lactate? Y
[2024-05-16] MEDS: FERROUS SULF 325 MG TABLET PO (08:57)
[2024-05-16] MEDS: Furosemide 40 MG TABLET PO (08:57)
[2024-05-16] MEDS: FOLIC ACID 1 MG TABLET PO ×2 (08:57→20:32)
[2024-05-16] MEDS: THIAMINE 100 MG TABLET PO ×2 (08:59→20:32)
--- NOTE | 2024-05-16 09:02 | PC.SS ---
SS follow up note; Cultures pending at the time, surgery on board, possible discharge in 1-2 days back home.
[2024-05-16 09:36] LABS: Lactic Acid, 3 HR 4.3 mMol/L (0.4-2.0)
[2024-05-16] MEDS: MORPHINE SULF INJ 10 MG/ML VIAL IVP ×2 (12:55→20:39)
[2024-05-16] MEDS: APIXABAN 2.5 MG TABLET 5 MG PO ×2 (12:56→20:32)
[2024-05-16] MEDS: PREGABALIN 50 MG CAPSULE 100 MG PO ×2 (14:16→22:12)
--- NOTE | 2024-05-16 14:36 | ESPR_ITS ---
<Statement entered by Joe Lara MD - 05/17/24 09:00> Senior Resident Attestation: I supervised/discussed management plan with gallery intern physician Dr. Ly, and was involved in the care of this patient. I personally saw and examined the patient and discussed the assessment and plan with the entire medicine team, including my attending. I agree with the assessment and plan as documented. Patient's care was discussed with attending physician, Dr. Hetaon. Joe Lara MD PGY-2. Documentation for date of: 05/16/24 Subjective Subjective Interval history: Patient is seen and examined at bedside. No acute overnight events. Reported that she is overall feeling well, appears less anxious Vitals are stable and on physical examination, there is no hematoma spread from yesterday and the area over hematoma looks less erythematous, decreased tenderness noted Labs showed stable hemoglobin, renal functions. Lactate initially down trended to 2.2 but today trended to 4.3, recommended adequate hydration AST and ALT seems to be downtrending Restarted patient on Eliquis to see how she tolerates it, will monitor hematoma and if it is expanding will hold the Eliquis Explained about the risks and prognosis of Eliquis in the setting of alcohol abuse, decreased mobility -recommended to talk to her vascular surgeon Dr. Caban about the Eliquis Exam Vital Signs Temp Pulse Resp BP Pulse Ox O2 Del Method O2 Flow Rate 97.5 F 109 H 18 120/86 H 95 Room Air 2 05/16/24 12:00 05/16/24 12:00 05/16/24 12:05/16/24 12:05/16/24 12:05/16/24 12:05/14/24 03:21 Narrative Exam General: Awake. HEENT: Normocephalic, atraumatic, mucous membranes moist. Heart: Regular rate and rhythm, no murmurs. Lungs: Clear to auscultation with no wheezing or crackles. Abdomen: Soft, nondistended, nontender, positive bowel sounds. ?No guarding or rebound tenderness. Neurologic: Alert and oriented x3, no gross neurological deficit, and patient able to move all 4 extremities. Extremities: Hematoma on the left calf, stopped spreading and erythema, tenderness decreased significantly foot drop noted in the left foot Skin: No rash or ecchymoses. Objective Labs 05/16/24 05:34 05/16/24 05:34 Labs: Laboratory Results - last 24 hr 05/15/24 05/15/24 05/16/24 17:44 21:35 05:34 WBC 4.4 RBC 3.05 L Hgb 9.0 L Hct 30.2 L MCV 99 MCH 29.5 MCHC 29.8 L RDW Std Deviation 77.6 H Plt Count 139 L Neut % (Auto) 52 Lymph % (Auto) 31 [place] % (Auto) 13 H Eos % (Auto) 3 Baso % (Auto) 1 Neut # (Auto) 2.3 Lymph # (Auto) 1.3 [place] # (Auto) 0.6 Eos # (Auto) 0.1 Baso # (Auto) 0.0 Immature Gran # (Auto) 0.05 H Absolute Nucleated RBC 0.00 Immature Gran % 1 H Nucleated RBC % 0 Sodium 142 Potassium 3.6 D Chloride 109 H Carbon Dioxide 28.1 Anion Gap 5 L BUN < 5 L Creatinine 0.6 Estim Creat Clear Calc 121.1 eGFR > 60 BUN/Creatinine Ratio 8 L Glucose 100 Calculated Osmolality 280 Lactic Acid 2.6 H 2.2 H Calcium 7.8 L Corrected Calcium 9.2 Total Bilirubin 0.8 AST 176 H ALT 79 H Alkaline Phosphatase 224 H D Total Protein 5.4 L Albumin 2.3 L Globulin 3.1 Albumin/Globulin Ratio 0.7 L Vancomycin Trough 3.9 L 05/16/24 09:07 WBC RBC Hgb Hct MCV MCH MCHC RDW Std Deviation Plt Count Neut % (Auto) Lymph % (Auto) [place] % (Auto) Eos % (Auto) Baso % (Auto) Neut # (Auto) Lymph # (Auto) [place] # (Auto) Eos # (Auto) Baso # (Auto) Immature Gran # (Auto) Absolute Nucleated RBC Immature Gran % Nucleated RBC % Sodium Potassium Chloride Carbon Dioxide Anion Gap BUN Creatinine Estim Creat Clear Calc eGFR BUN/Creatinine Ratio Glucose Calculated Osmolality Lactic Acid 4.3 H* Calcium Corrected Calcium Total Bilirubin AST ALT Alkaline Phosphatase Total Protein Albumin Globulin Albumin/Globulin Ratio Vancomycin Trough Quality Measures Quality Measures none Assessment & Plan Assessment Current Active Medications: Generic Name Dose Route Start Last Admin Trade Name Freq PRN Reason Stop Dose Admin Hydrocodone Bitart/Acetaminophen 1 tab 05/14/24 05:46 05/16/24 09:14 Hydrocodone/Apap 5/325 Tablet PO 05/19/24 04:41 1 tab Q6HR PRN Administration Pain Scale 6-10 Apixaban 5 mg 05/16/24 10:45 05/16/24 12:56 Apixaban 2.5 Mg Tablet PO 06/06/24 10:44 5 mg BID DA Administration Chlordiazepoxide HCl 25 mg 05/16/24 21:00 Chlordiazepoxide Hcl 25 Mg Capsule PO 05/21/24 20:59 BID DA Clindamycin HCl 300 mg 05/14/24 12:00 05/16/24 12:56 Clindamycin 150 Mg Capsule PO 05/21/24 11:59 300 mg QID DA Administration Ferrous Sulfate 325 mg 05/14/24 15:45 05/16/24 08:57 Ferrous Sulf 325 Mg Tablet PO 06/13/24 15:44 325 mg QOD DA Administration Folic Acid 1 mg 05/14/24 09:00 05/16/24 08:57 Folic Acid 1 Mg Tablet PO 05/19/24 08:59 1 mg BID DA Administration Furosemide 40 mg 05/15/24 12:15 05/16/24 08:57 Furosemide 40 Mg Tablet PO 06/14/24 12:14 40 mg QDAY DA Administration Ibuprofen 600 mg 05/14/24 04:49 Ibuprofen Tab 600 Mg Tablet PO 06/13/24 04:48 Q6HR PRN PAIN 1-3 OR FEVER > 101 Lactulose 20 gm 05/14/24 04:42 Lactulose Syrup 20 Gm/30 Ml Udc PO 06/13/24 08:59 QDAY PRN constipation Protocol Levothyroxine Sodium 50 mcg 05/14/24 06:00 05/16/24 05:47 Levothyroxine Sodium 25 Mcg Tablet PO 06/13/24 05:59 50 mcg ACBR DA Administration Lorazepam 1 mg 05/15/24 09:50 05/15/24 10:11 Lorazepam 0.5 Mg Tablet PO 05/20/24 09:49 1 mg Q4HR PRN Administration CIWA SCORE 7-11 Lorazepam 2 mg 05/15/24 09:50 Lorazepam 0.5 Mg Tablet PO 05/20/24 09:49 Q4HR PRN CIWA SCORE 12-15 Morphine Sulfate 1 mg 05/14/24 12:15 05/16/24 12:55 Morphine Sulf Inj 10 Mg/Ml Vial IVP 05/19/24 12:14 1 mg Q6HR PRN Administration BREAKTHROUGH PAIN (SEVERE) Protocol Ondansetron HCl 4 mg 05/14/24 04:42 Ondansetron Inj 2 Mg/Ml Inj 2 Ml IV 06/13/24 04:41 Q6H PRN NAUSEA OR VOMITING Protocol Pregabalin 100 mg 05/16/24 14:00 05/16/24 14:16 Pregabalin 50 Mg Capsule PO 06/15/24 13:59 100 mg TID DA Administration Thiamine HCl 100 mg 05/14/24 09:00 05/16/24 08:59 Thiamine 100 Mg Tablet PO 05/19/24 08:59 100 mg BID DA Administration Plan Fabiola Caban is a 64-year-old predominantly wheelchair-bound female with a past medical history of cirrhosis secondary to alcohol use, 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 #Left lower extremity cellulitis #Left lower extremity hematoma 2/2 trauma in the setting of Eliquis Tenderness, swelling, erythema on posterior left calf 1 week after incident. No leukocytosis, afebrile. Venous Doppler BLE: Negative for DVT, hematoma left lower extremity CT BLE: Extensive cellulitis and lower thighs as well as lower legs, hematoma and left calf Vancomycin and aztreonam (05/14) ? General Surgery consulted, appreciate recommendations ? Warm compress 20 minutes at a time ? Reevaluate need for anticoagulation ? No indication for surgical intervention ? Clindamycin 300 mg p.o. 4 times daily ? Blood culture 05/14: Pending ? Pain management: [place] 5 q6hr, morphine 1 mg q6hr -Restarted her on Eliquis as the hematoma is not spreading anymore, will monitor for today and planning to discharge tomorrow #Lactic acidosis, improving Lactate at time of admission 7.3, currently improved to 2.2 and up trended to 4.3 ? will trend lactate #Alcohol use #Transaminitis, downtrending At time of admission AST 203, ALT 97 consistent with alcohol use, transaminase levels are downtrending Last drink on evening of 05/13 and drinks 2-3 shots of hard liquor per day ? CIWA protocol ? Chlordiazepoxide 25 mg p.o. TID #Chronic normocytic, normochromic anemia Noted to have anemia since for many years Hemoglobin at the time of admission is 9.8, iron 18, iron saturation 6% ? Ferrous sulfate every other day #Hypokalemia, resolved #Hypomagnesemia, resolved ? Monitor electrolytes and replete accordingly #History of unprovoked DVT, on Eliquis Admitted to hospital with hematoma 2/2 trauma Patient continues to take Eliquis and is following a vascular surgeon who she has seen recently ? Eliquis held #History of hypothyroidism TSH wnl ? Home levothyroxine 50 mcg #Chronic back pain ? Pain management as above Hospital Maintenance: Dispo: Medsurg DVT ppx: Restarted her on Eliquis GI ppx: Not needed Diet: Regular IV lines: Peripheral Code status: DNR Patient plan of care was discussed with the attending physician, Dr. Heaton and senior resident Dr. Jane Ly, PGY1 Attending Provider Attestation/Addendum I reviewed labs, imaging, EKG, home medications and prior available records. Face to face evaluation was performed by me. I have personally examined the patient and discussed assessment and plan with the IM team. I reviewed the resident note and agree with the plan with exceptions as below. Left leg hematoma Left lower extremity cellulitis Lactic acidosis Alcohol abuse Alcohol withdrawal Alcoholic cirrhosis Transaminitis Chronic normocytic anemia Monitor H&H: Stable. Resume home Eliquis. Monitor the size of the hematoma Consulted general surgery: Recommended warm compressors. No indication for surgery at this time Switched antibiotics to clindamycin Continue IV fluids. Trend lactic acid: Improved then went up again. Likely in the setting of liver cirrhosis. Continue to trend Monitor LFTs Started Librium 25 mg 3 times daily, tapered down to 25 twice daily. Noted benzodiazepines on the allergy list however this is likely side effects and patient tolerated it Ordered PT: Recommended home health with caregiver Discharge tomorrow if lactic acid improves and hematoma/H&H is stable
[2024-05-16 14:44] LABS: Lactate (Lactic Acid) 3.1 mMol/L (0.4-2.0)
[2024-05-16 17:41] LABS: Reflex Lactate? Y
[2024-05-16 18:11] LABS: Lactic Acid, 3 HR 2.8 mMol/L (0.4-2.0)
[2024-05-17] VITALS (9 sets, daily range): BP systolic 93–129; BP diastolic 54–81; PULSE 94–111; RESP 18–95; TEMP 36.2–37; O2SAT 91–98; BMI 43.4
--- NOTE | 2024-05-17 00:25 | PC.NURSE ---
pt asleep on room air O2 desats=77% up and down several times- Applied O2 inh on at 2L/min/nc with 95% O2 sat.
[2024-05-17] MEDS: CLINDAMYCIN 150 MG CAPSULE 300 MG PO ×4 (05:36→20:09)
[2024-05-17] MEDS: LEVOTHYROXINE SODIUM 25 MCG TABLET 50 MCG PO (05:36)
[2024-05-17] MEDS: PREGABALIN 50 MG CAPSULE 100 MG PO ×3 (05:36→21:15)
[2024-05-17] MEDS: HYDROcodone/APAP 5/325 TABLET 1 TAB PO ×3 (05:55→20:12)
[2024-05-17 06:11] LABS: Basophils # (Auto) 0.1 Thou/mm3 (0.0-0.2); Basophils % (Auto) 1 % (0-2.5); Eosinophils # (Auto) 0.2 Thou/mm3 (0.0-0.5); Eosinophils % (Auto) 3 % (0-10); Hematocrit 31.3 % (36.0-46.0); Hemoglobin 9.1 g/dL (12.0-16.0); Immature Granulocytes % (Auto) 1 % (0-0); Immature Granulocytes Auto 0.04 Thou/mm3 (0.00-0.00); Lymphocytes # (Auto) 1.7 Thou/mm3 (1.0-4.8); Lymphocytes % (Auto) 35 % (10-50); Mean Corpuscular HGB Conc 29.1 g/dl (31.0-37.0); Mean Corpuscular Hemoglobin 29.4 pg (25.0-35.0); Mean Corpuscular Volume 101 fL (80-100); Monocytes # (Auto) 0.7 Thou/mm3 (0.0-0.8); Monocytes % (Auto) 16 % (0-12); Neutrophils # (Auto) 2.1 Thou/mm3 (1.8-7.7); Neutrophils % (Auto) 44 % (37-80); Nucleated Red Blood Cell % 0 /100 WBC (0); Platelet Count 156 Thou/mm3 (140-440); RDW Standard Deviation 80.6 fL (36.4-46.3); Red Blood Count 3.09 Miln/mm3 (4.00-5.20); White Blood Count 4.7 Thou/mm3 (3.6-11.0)
[2024-05-17 06:30] LABS: Anion Gap 7 (7-16); BUN/Creatinine Ratio 15 Ratio (12-20); Blood Urea Nitrogen 9 mg/dL (9-23); Calcium 7.8 mg/dL (8.3-10.6); Carbon Dioxide 30.5 mMol/L (20.0-31.0); Chloride 105 mMol/L (98-107); Creatinine (Component) 0.6 mg/dL (0.6-1.3); Estimated Creatinine Clearance 121.1 mL/min (>60); Glucose 111 mg/dL (74-106); Osmolality,Calculated 282 (275-295); Potassium 3.7 mMol/L (3.4-5.1); Sodium 142 mMol/L (136-145); eGFR > 60 See Note
[2024-05-17] MEDS: THIAMINE 100 MG TABLET PO ×2 (09:29→20:09)
[2024-05-17] MEDS: chlordiazePOXIDE HCl 25 MG CAPSULE PO ×2 (09:29→20:09)
[2024-05-17] MEDS: FOLIC ACID 1 MG TABLET PO ×2 (09:29→20:09)
[2024-05-17] MEDS: APIXABAN 2.5 MG TABLET 5 MG PO ×2 (09:29→20:08)
--- NOTE | 2024-05-17 09:46 | PC.NURSE ---
Asked pt if there was anything needed at home upon discharge, pt stated her home 02 machine does not work. I informed SS and they stated they will follow up.
--- NOTE | 2024-05-17 14:38 | PC.SS ---
[id number] SS informed by JEREMIE Jean-Baptiste patient has concerns with home oxygen. SS met with patient at bedside. Patient stated she was unsure of oxygen provider, but recalls DME provider name starts with A. SS confirmed home address with patient. SS to follow up with patient. 1208 [employer] contacted [phone] to assist patient with DME service repair. Esthela stated someone would need to go to the home to troubleshoot with Alejandra via telephone. Esthela requesting specific information regarding machine?s issues.? SS confirmed with patient machine is not turning on. 1225 SS met with patient at bedside to inform patient someone needs to be in the home to troubleshoot machine with Alejandra via phone. Patient provided daughter Janay Blackman?s contact [phone] and stated her daughter lives 2 doors down from her home. Patient?s daughter can troubleshoot via telephone with [employer]. JEREMIE Jean-Baptiste informed. JEREMIE Jean-Baptiste stated patient needs oxygen to discharge home. ? 1228 SS contacted patient?s daughter Janay Blackman [phone], Janay stated she already on the phone with her Alejandra. Patient?s daughter stated oxygen concentrator would be delivered to home. 1232 SS contacted Jadiel [phone] to confirm delivery time. Jadiel stated family will be taking old concentrator and picking up new concentrator. SS requested small tank for patient. Jadiel and Marjan stated patient?s insurance does not authorize portable oxygen. Family must take old concentrator to their office at [address] [facility] and exchange it for new one. An ETank will also be given to family member so patient can discharge with oxygen. 1342 SS met with patient at bedside to confirm if family is able to orange picker machine operator concentrator and oxygen ETank. Patient stated [employer] to deliver to the home, her daughter Janay to meet with [employer] today, 05/17/24 at 1800. SS at bedside with patient when she was contacted by [employer] [place] confirmed with patient delivery time, 1800. Patient?s daughter Janay to receive oxygen. Dr. Ly also at bedside, SS informed patient will stay an additional day. Patient stated bark tanner Babs to deliver oxygen ETank tomorrow, 05/18/24 at bedside for discharge. Patient stated bark tanner may possibly deliver oxygen ETank today. SS informed JEREMIE Jean-Baptiste.
--- NOTE | 2024-05-17 15:13 | ESPR_ITS ---
<Statement entered by Joe Lara MD - 05/18/24 09:10> Senior Resident Attestation: I supervised/discussed management plan with management intern physician Dr. Ly, and was involved in the care of this patient. I personally saw and examined the patient and discussed the assessment and plan with the entire medicine team, including my attending. I agree with the assessment and plan as documented. Patient's care was discussed with attending physician, Dr. Prajapati. Joe Lara MD PGY-2. Documentation for date of: 05/17/24 Subjective Subjective Interval history: Patient is seen and examined at bedside. No acute overnight events. Still complaining of pain at the site of the hematoma especially when she sleep in the supine position with weight on her legs Vitals all stable. On physical examination, the hematoma site looks less erythematous, still operator gin and does seem to expand very minimal Labs showed hemoglobin 9.1 which is stable over time Will continue Eliquis, monitor for bleeding manifestations and hematoma spread. If patient is stable without any acute bleeding manifestations or hematoma extension, planning to discharge tomorrow with home health as patient denied rehab Exam Vital Signs Temp Pulse Resp BP Pulse Ox O2 Del Method O2 Flow Rate 98.6 F 97 20 106/54 L 95 Nasal Cannula 2 05/17/24 12:00 05/17/24 12:00 05/17/24 12:00 05/17/24 12:00 05/17/24 12:00 05/17/24 12:00 05/17/24 12:00 Narrative Exam General: Awake. HEENT: Normocephalic, atraumatic, mucous membranes moist. Heart: Regular rate and rhythm, no murmurs. Lungs: Clear to auscultation with no wheezing or crackles. Abdomen: Soft, nondistended, nontender, positive bowel sounds. ?No guarding or rebound tenderness. Neurologic: Alert and oriented x3, no gross neurological deficit, and patient able to move all 4 extremities. Extremities: Hematoma on the left calf, stopped spreading and erythema, tenderness decreased significantly foot drop noted in the left foot Skin: No rash or ecchymoses. Objective Labs 05/17/24 05:17 05/17/24 05:17 Labs: Laboratory Results - last 24 hr 05/16/24 05/16/24 05/17/24 14:37 18:02 05:17 WBC 4.7 RBC 3.09 L Hgb 9.1 L Hct 31.3 L MCV 101 H MCH 29.4 MCHC 29.1 L RDW Std Deviation 80.6 H Plt Count 156 Neut % (Auto) 44 Lymph % (Auto) 35 [place] % (Auto) 16 H Eos % (Auto) 3 Baso % (Auto) 1 Neut # (Auto) 2.1 Lymph # (Auto) 1.7 [place] # (Auto) 0.7 Eos # (Auto) 0.2 Baso # (Auto) 0.1 Immature Gran # (Auto) 0.04 H Absolute Nucleated RBC 0.00 Immature Gran % 1 H Nucleated RBC % 0 Sodium 142 Potassium 3.7 Chloride 105 Carbon Dioxide 30.5 Anion Gap 7 BUN 9 Creatinine 0.6 Estim Creat Clear Calc 121.1 eGFR > 60 BUN/Creatinine Ratio 15 Glucose 111 H Calculated Osmolality 282 Lactic Acid 3.1 H 2.8 H Calcium 7.8 L Quality Measures Quality Measures none Assessment & Plan Assessment Current Active Medications: Generic Name Dose Route Start Last Admin Trade Name Freq PRN Reason Stop Dose Admin Hydrocodone Bitart/Acetaminophen 1 tab 05/14/24 05:46 05/17/24 12:42 Hydrocodone/Apap 5/325 Tablet PO 05/19/24 04:41 1 tab Q6HR PRN Administration Pain Scale 6-10 Apixaban 5 mg 05/16/24 10:45 05/17/24 09:29 Apixaban 2.5 Mg Tablet PO 06/06/24 10:44 5 mg BID DA Administration Chlordiazepoxide HCl 25 mg 05/16/24 21:00 05/17/24 09:29 Chlordiazepoxide Hcl 25 Mg Capsule PO 05/21/24 20:59 25 mg BID DA Administration Clindamycin HCl 300 mg 05/14/24 12:00 05/17/24 12:42 Clindamycin 150 Mg Capsule PO 05/21/24 11:59 300 mg QID DA Administration Ferrous Sulfate 325 mg 05/14/24 15:45 05/16/24 08:57 Ferrous Sulf 325 Mg Tablet PO 06/13/24 15:44 325 mg QOD DA Administration Folic Acid 1 mg 05/14/24 09:00 05/17/24 09:29 Folic Acid 1 Mg Tablet PO 05/19/24 08:59 1 mg BID DA Administration Lactulose 20 gm 05/14/24 04:42 Lactulose Syrup 20 Gm/30 Ml Udc PO 06/13/24 08:59 QDAY PRN constipation Protocol Levothyroxine Sodium 50 mcg 05/14/24 06:00 05/17/24 05:36 Levothyroxine Sodium 25 Mcg Tablet PO 06/13/24 05:59 50 mcg ACBR DA Administration Lorazepam 1 mg 05/15/24 09:50 05/15/24 10:11 Lorazepam 0.5 Mg Tablet PO 05/20/24 09:49 1 mg Q4HR PRN Administration CIWA SCORE 7-11 Lorazepam 2 mg 05/15/24 09:50 Lorazepam 0.5 Mg Tablet PO 05/20/24 09:49 Q4HR PRN CIWA SCORE 12-15 Morphine Sulfate 1 mg 05/14/24 12:15 05/16/24 20:39 Morphine Sulf Inj 10 Mg/Ml Vial IVP 05/19/24 12:14 1 mg Q6HR PRN Administration BREAKTHROUGH PAIN (SEVERE) Protocol Nitrofurantoin Macrocrystals 100 mg 05/17/24 21:00 Nitrofurantoin Macro 100 Mg Capsule PO 05/24/24 20:59 BID DA Ondansetron HCl 4 mg 05/14/24 04:42 Ondansetron Inj 2 Mg/Ml Inj 2 Ml IV 06/13/24 04:41 Q6H PRN NAUSEA OR VOMITING Protocol Pregabalin 100 mg 05/16/24 14:00 05/17/24 14:00 Pregabalin 50 Mg Capsule PO 06/15/24 13:59 100 mg TID DA Administration Thiamine HCl 100 mg 05/14/24 09:00 05/17/24 09:29 Thiamine 100 Mg Tablet PO 05/19/24 08:59 100 mg BID DA Administration Plan Fabiola Caban is a 64-year-old predominantly wheelchair-bound female with a past medical history of cirrhosis secondary to alcohol use, 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 #Left lower extremity cellulitis #Left lower extremity hematoma 2/2 trauma in the setting of Eliquis Tenderness, swelling, erythema on posterior left calf 1 week after incident. No leukocytosis, afebrile. Venous Doppler BLE: Negative for DVT, hematoma left lower extremity CT BLE: Extensive cellulitis and lower thighs as well as lower legs, hematoma and left calf Vancomycin and aztreonam (05/14) ? General Surgery consulted, appreciate recommendations ? Warm compress 20 minutes at a time ? Reevaluate need for anticoagulation ? No indication for surgical intervention ? Clindamycin 300 mg p.o. 4 times daily ? Blood culture 05/14: Pending ? Pain management: [place] 5 q6hr, morphine 1 mg q6hr -Restarted her on Eliquis as the hematoma is not spreading anymore, will monitor for today and planning to discharge tomorrow # UTI -Urine analysis showed turbid urine with 7 WBC, 1+ bacteria -Patient is complaining of mild discomfort while urinating occasionally -Urine cultures came back positive for E. coli which is almost pansensitive -Started on nitrofurantoin 100 Mg p.o. twice daily for 5 days #Lactic acidosis, improving Lactate at time of admission 7.3, currently improved to 2.2 and up trended to 2.8 ? will trend lactate #Alcohol use #Transaminitis, downtrending At time of admission AST 203, ALT 97 consistent with alcohol use, transaminase levels are downtrending Last drink on evening of 05/13 and drinks 2-3 shots of hard liquor per day ? CIWA protocol ? Chlordiazepoxide 25 mg p.o. TID #Chronic normocytic, normochromic anemia Noted to have anemia since for many years Hemoglobin at the time of admission is 9.8, iron 18, iron saturation 6% ? Ferrous sulfate every other day #Hypokalemia, resolved #Hypomagnesemia, resolved ? Monitor electrolytes and replete accordingly #History of unprovoked DVT, on Eliquis Admitted to hospital with hematoma 2/2 trauma Patient continues to take Eliquis and is following a vascular surgeon who she has seen recently ? Eliquis held #History of hypothyroidism TSH wnl ? Home levothyroxine 50 mcg #Chronic back pain ? Pain management as above # COPD on home oxygen -Patient had a history of smoking, quit many years ago -Using 2 L oxygen at home Hospital Maintenance: Dispo: Medsurg DVT ppx: Restarted her on Eliquis GI ppx: Not needed Diet: Regular IV lines: Peripheral Code status: DNR Patient plan of care was discussed with the attending physician, Dr. Prajapati and senior resident Dr. Jane Ly, PGY1 I reviewed labs, imaging, EKG, home medications and prior available records. Face to face evaluation was performed by me. I have personally examined the patient and discussed assessment and plan with the IM team. I reviewed the resident note and agree with the plan with exceptions as below. Left leg hematoma Left lower extremity cellulitis Lactic acidosis Alcohol abuse Alcohol withdrawal Alcoholic cirrhosis Transaminitis Chronic normocytic anemia Monitor H&H: Stable. Resume home Eliquis. Monitor the size of the hematoma Consulted general surgery: Recommended warm compressors. No indication for surgery at this time Switched antibiotics to clindamycin Continue IV fluids. Trend lactic acid: Improved then went up again. Likely in the setting of liver cirrhosis. Continue to trend Monitor LFTs Started Librium 25 mg 3 times daily, tapered down to 25 twice daily. Noted benzodiazepines on the allergy list however this is likely side effects and patient tolerated it Ordered PT: Recommended home health with caregiver Discharge tomorrow if lactic acid improves and hematoma/H&H is stable Attending Provider Attestation/Addendum Face to face evaluation was performed by me. I have personally seen and examined the patient. I discussed the assessment and plan with the entire medicine team. I reviewed available medical records, imaging studies, laboratory results. I agree with the above subjective data, objective findings, assessment and plan except as corrected by me or noted below Left calve hematoma Left calve cellulites Systemic coagulation Hx of DVT/VTE in the past Resumed apixaban?monitor H&H/hematoma closely. ? Continue with antibiotics empirically, plan to finish 5-7-day course. Monitor vitals and labs More than > 30 minutes spent on the encounter
[2024-05-17] MEDS: NITROFURANTOIN MACRO 100 MG CAPSULE PO (20:09)
[2024-05-18] VITALS: BP 134/84; PULSE 100; RESP 19; TEMP 36.5; O2SAT 100
[2024-05-18 04:00] VITALS: BP 99/68; PULSE 107; RESP 19; TEMP 36.4; O2SAT 98
[2024-05-18] MEDS: PREGABALIN 50 MG CAPSULE 100 MG PO (05:02)
[2024-05-18] MEDS: LEVOTHYROXINE SODIUM 25 MCG TABLET 50 MCG PO (05:02)
[2024-05-18] MEDS: CLINDAMYCIN 150 MG CAPSULE 300 MG PO ×2 (05:02→11:11)
[2024-05-18 07:57] VITALS: BP 109/70; PULSE 103; RESP 20; TEMP 36.2; O2SAT 99
[2024-05-18] MEDS: APIXABAN 2.5 MG TABLET 5 MG PO (08:46)
[2024-05-18] MEDS: NITROFURANTOIN MACRO 100 MG CAPSULE PO (08:47)
[2024-05-18] MEDS: FOLIC ACID 1 MG TABLET PO (08:47)
[2024-05-18] MEDS: HYDROcodone/APAP 5/325 TABLET 1 TAB PO (08:47)
[2024-05-18] MEDS: chlordiazePOXIDE HCl 25 MG CAPSULE PO (08:47)
[2024-05-18] MEDS: FERROUS SULF 325 MG TABLET PO (08:47)
[2024-05-18] MEDS: THIAMINE 100 MG TABLET PO (08:47)
[2024-05-18 11:43] VITALS: PULSE 62; RESP 18; RESP 98
[2024-05-18 11:50] VITALS: BP 108/61; PULSE 104; RESP 20; TEMP 36.5; O2SAT 92
--- NOTE | 2024-05-18 13:58 | PC.SS ---
SS follow up note; Patient will discharge home today.
--- NOTE | 2024-05-18 16:16 | ESDS_ITS ---
Planned Discharge Date 05/18/24 DS: Providers Provider Date of admission: 05/14/24 04:43 Primary care physician: LIZEBTH Cameron Admitting Provider: Aneesh Cota MD Attending Provider on Admission: Noman Prajapati MD Consults: 05/14/24 05:02 Referral Wound Care Stat Comment: 05/14/24 05:03 Consult to General Surgery Stat Comment: For hematoma Consulting Provider: Sandi Beard 05/14/24 06:31 Referral Physical Therapy Routine Comment: Physician Instructions: Referral Respiratory Therapy Routine Comment: Attending Provider on DC: Luigi Ly MD Discharging Provider: Luigi Ly MD DS: Diagnosis Problem List Completed Was Problem List Reviewed/Reconciled?: Yes Hospital Course Hospital Course Hospital course: A 64 year-old female with significant past medical history of alcoholic liver cirrhosis, Eliquis, left fibular fracture, chronic back pain, hypothyroidism, depression, bilateral osteoarthritis of knee, left tibial fracture was brought to the hospital with chief complaints of pain and swelling in the left lower extremity and admitted for hematoma secondary to trauma in the setting of Eliquis usage. Labs showed WBC 6.6, Hb 9.8 platelets 160, sodium 139, potassium 2.9, BUN 6, creatinine 0.7, lactate 7.8, AST 203, ALT 97, procalcitonin 0.21.Chest x-ray did not show any infiltrates. Venous Doppler BLE: Negative for DVT, hematoma left lower extremity. CT BLE: Extensive cellulitis and lower thighs as well as lower legs, hematoma and left calf. Dr. Prado was consulted and recommended treatment with warm compressions. Later lactate came back to 2.2. Eliquis was held during the hospitalization initially and later resumed 2 days before the discharge and as the hematoma was not progressing, recommended to continue Eliquis and follow-up with Dr. Caban in the outpatient basis regarding the Eliquis. Patient was treated with clindamycin, benzodiazepines for alcohol withdrawal Patient is discharged with the following medications and recommendations -Follow-up with primary care provider within 1 week of discharge. If you do not have appointment, please follow-up with the [facility] with Dr. Ly. Call [phone] to make an appointment. -Follow up with Dr. Caban within 1 week of discharge. [address] [place], [place] [phone] -Continue clindamycin 300mg QID for 2 more days -Continue rest of the home medications -Recommended salt and fluid restriction -Return to Emergency Department if symptoms persist or return #Left lower extremity cellulitis #Left lower extremity hematoma 2/2 trauma in the setting of Eliquis #Lactic acidosis, improving #Alcohol use #Transaminitis #Chronic normocytic, normochromic anemia #Hypokalemia, resolved #Hypomagnesemia, resolved #History of unprovoked DVT, on Eliquis #History of hypothyroidism #Chronic back pain Patient plan of care was discussed with the attending physician, Dr. Prajapati and senior resident Dr. Jane Ly, PGY1 Time Spent with Patient Time attestation: Total time spent providing and/or coordinating discharge services: Time spent: Greater than 30 minutes Exam Vital Signs Temp Pulse Resp BP Pulse Ox O2 Del Method O2 Flow Rate 97.7 F 104 H 20 108/61 92 L Nasal Cannula 4 05/18/24 11:50 05/18/24 11:50 05/18/24 11:50 05/18/24 11:50 05/18/24 11:50 05/18/24 11:50 05/18/24 11:50 Narrative Exam General: Awake. HEENT: Normocephalic, atraumatic, mucous membranes moist. Heart: Regular rate and rhythm, no murmurs. Lungs: Clear to auscultation with no wheezing or crackles. Abdomen: Soft, nondistended, nontender, positive bowel sounds. ?No guarding or rebound tenderness. Neurologic: Alert and oriented x3, no gross neurological deficit, and patient able to move all 4 extremities. Extremities: Hematoma on the left calf, stopped spreading and erythema, tenderness decreased significantly foot drop noted in the left foot Skin: No rash or ecchymoses. Discharge Plan Plan Patient Disposition: Home w/HOME HEALTH Care Plan Goals: -Follow-up with primary care provider within 1 week of discharge. If you do not have appointment, please follow-up with the [facility] with Dr. Ly. Call [phone] to make an appointment. -Follow up with Dr. Caban within 1 week of discharge. [address] [facility], -Continue clindamycin 300mg QID for 2 more days -Continue rest of the home medications -Recommended salt and fluid restriction -Return to Emergency Department if symptoms persist or return Prescriptions/Referrals Prescriptions/Med Rec: New clindamycin HCl 300 mg capsule 300 mg PO Q6H 3 Days Qty: 10 0RF Continued furosemide 40 mg tablet 40 mg PO QDAY PRN (Reason: Edema) lactulose 10 gram/15 mL Syrup 20 g PO BID levothyroxine 50 mcg capsule 50 mcg PO AC Eliquis 5 mg tablet 5 mg PO BID Qty: 60 0RF ergocalciferol (vitamin D2) 1,250 mcg (50,000 unit) capsule 1,250 mcg PO QWEEK meloxicam 7.5 mg tablet 15 mg PO QDAY pregabalin 100 mg capsule 100 mg PO TID Qty: 90 0RF albuterol sulfate 90 mcg/actuation HFA aerosol inhaler 2 inh INHALATION Q6H PRN (Reason: wheeze) duloxetine 60 mg capsule,delayed release(DR/EC) 60 mg PO DAILY atorvastatin 20 mg tablet 20 mg PO DAILY naloxone [Narcan] 4 mg/actuation spray,non-aerosol 4 mg intranasal Q2M PRN (Reason: opioid overdose) Qty: 2 0RF Rx Instructions: spray 1 dose into ONE nostril; alternate nostrils w each dose until help arrives Referrals: Ny Vázquez FNP [Primary Care Provider] - Patient/Caregiver Discharge Instructions Education Materials: Urinary Tract Infections in Women, Alcohol Withdrawal: What to Expect, Discharge Instructions for Cellulitis, ED Hematoma, Osteoarthritis Print Language: [place] Stand Alone Forms: [employer]i Award Info., Patient Portal Info Letter Discharge Order Discharge Orders: Discharge (Routine); Ordered 05/18/24 Ordered By: Luigi Ly Quality Discharge Quality Measures none MD Attestestation MD Attestation Face to face evaluation was performed by me. I have personally seen and examined the patient. I discussed the assessment and plan with the entire medicine team. I reviewed available medical records, imaging studies, laboratory results. I agree with the above subjective data, objective findings, assessment and plan except as corrected by me or noted below Left calve hematoma Left calve cellulites Systemic coagulation Hx of DVT/VTE in the past Resumed apixaban, hematoma seems to be not expanding. Hemoglobin stable. Plan to follow-up with PCP/academic clinic as soon as possible within the next 5-10 days. Continue antibiotic as prescribed, monitor for worsening of pain and swelling in the left calf area. Return to the emergency room if symptoms/signs are worse. More than > 30 minutes spent on the encounter
--- NOTE | 2024-05-18 19:25 | PC.CM ---
Addendum entered by Fabio Carey RN 05/19/24 12:02: Patient referred to [facility], start of care 05/21/24. Original Note: I did not see a preference for a home health agency so I sent to all agencies.
== END 2024-05-18 13:02 | disposition home health service (06) | DRG 383 ==
LOC: SERX 05-14 05:03 → SERHOLD 05-14 05:15 → S3SX 05-14 06:05
PROVIDERS: Student in an Organized Health Care Education/Training Program; Admitting Provider Internal Medicine; Emergency Provider Emergency Medicine; PCP Nurse Practitioner Family; Visit Provider Internal Medicine
DX: L03.116 Cellulitis of left lower limb (principal); L03.115 Cellulitis of right lower limb; E87.20 Acidosis, unspecified; E87.6 Hypokalemia; K70.30 Alcoholic cirrhosis of liver without ascites; F32.A Depression, unspecified; M54.9 Dorsalgia, unspecified; G89.29 Other chronic pain; E03.9 Hypothyroidism, unspecified; M17.0 Bilateral primary osteoarthritis of knee; I10 Essential (primary) hypertension; F17.210 Nicotine dependence, cigarettes, uncomplicated; F11.20 Opioid dependence, uncomplicated; M21.372 Foot drop, left foot; S80.12XA Contusion of left lower leg, initial encounter; F15.90 Other stimulant use, unspecified, uncomplicated; B96.20 Unspecified Escherichia coli [E. coli] as the cause of diseases classified elsewhere; J44.9 Chronic obstructive pulmonary disease, unspecified; E83.42 Hypomagnesemia; N39.0 Urinary tract infection, site not specified; Z79.01 Long term (current) use of anticoagulants; Z99.3 Dependence on wheelchair; F10.139 Alcohol abuse with withdrawal, unspecified; Z90.49 Acquired absence of other specified parts of digestive tract; D64.89 Other specified anemias; Z66 Do not resuscitate; Z86.718 Personal history of other venous thrombosis and embolism; Z79.890 Hormone replacement therapy; Z98.84 Bariatric surgery status; Z99.81 Dependence on supplemental oxygen; Z79.899 Other long term (current) drug therapy; Z88.0 Allergy status to penicillin; Z88.1 Allergy status to other antibiotic agents; Z88.8 Allergy status to other drugs, medicaments and biological substances; W23.0XXA Caught, crushed, jammed, or pinched between moving objects, initial encounter; Z87.81 Personal history of (healed) traumatic fracture
CPT/HCPCS: 36415; 71045; 73701; 80048; 80053; 80202; 81001; 83540; 83550; 83605; 83735; 83880; 84100; 84145; 84443; 84484; 85025; 85610; 85730; 87040; 87077; 87081; 87086; 87186; 93005; 93970; 96365; 96366; 97161; 99291; A4649; J0457; J2270; J3371; J3372; J3475; J7030; J7050; Q9967; A9270

== ENCOUNTER 2024-05-25 13:33 | Outpatient (AMB) | payer MEDICAID, SELFPAY ==
[2024-05-25 14:05] VITALS: BP 119/74; PULSE 103; RESP 16; TEMP 36.6; O2SAT 96; BMI 45.8
--- NOTE | 2024-05-25 14:05 | PD.RESCLINIC ---
Vital Signs 05/25/24 14:05 Height 1.63 m Height Method Stated Weight 121.279 kg Weight Measurement Method Standing Scale BMI 45.8 BP 119/74 Blood Pressure Source Automatic Cuff Blood Pressure Location Left Upper Arm Position Sitting Respiration 16 Pulse 103 H Pulse Source Monitor Temp 97.8 F Temp Source Temporal Artery Scan Pulse Oximetry (%) 96 Oxygen Delivery Method Room Air Allergies/Meds Allergies & Medications Allergies Penicillins Allergy (Severe, Verified 08/03/24 14:18) Anaphylaxis erythromycin base Adverse Reaction (Intermediate, Verified 08/03/24 14:18) Abdominal Pain Medication Reconciliation albuterol sulfate 90 mcg/actuation aerosol inhaler 2 inh inhalation Q6H PRN wheeze 10/27/22 [History Confirmed 08/03/24] duloxetine 60 mg capsule,delayed release 60 mg PO DAILY 10/27/22 [History Confirmed 08/03/24] apixaban 5 mg tablet (Eliquis) 5 mg PO BID #60 tabs 02/14/23 [Rx Confirmed 08/03/24] atorvastatin 20 mg tablet 20 mg PO DAILY 02/01/24 [History Confirmed 08/03/24] naloxone 4 mg/actuation nasal spray (Narcan) 4 mg intranasal Q2M PRN opioid overdose #2 ea 02/03/24 [Rx Confirmed 08/03/24] ergocalciferol (vitamin D2) 1,250 mcg (50,000 unit) capsule 1,250 mcg PO QWEEK 05/18/24 [History Confirmed 08/03/24] meloxicam 7.5 mg tablet 15 mg PO QDAY 05/18/24 [History Confirmed 08/03/24] furosemide 40 mg tablet 40 mg PO BID #60 tabs 05/25/24 [Rx Confirmed 08/03/24] thiamine HCl (vitamin B1) 100 mg tablet 100 mg PO QDAY #30 tabs 05/25/24 [Rx Confirmed 08/03/24] tramadol 50 mg tablet 50 mg PO Q8H PRN pain #14 tabs 05/25/24 [Rx Confirmed 08/03/24] gabapentin 600 mg tablet 600 mg PO Q8H 06/01/24 [History Confirmed 08/03/24] pantoprazole 40 mg tablet,delayed release 40 mg PO DAILY 06/01/24 [History Confirmed 08/03/24] fluconazole 100 mg tablet (Diflucan) 150 mg (1.5 x 100 mg) PO QDAY #2 tabs 06/20/24 [Rx Confirmed 08/03/24] levothyroxine 50 mcg capsule 50 mcg PO AC #60 caps 06/29/24 [Rx Confirmed 08/03/24] pregabalin 100 mg capsule 100 mg PO TID #90 caps 06/29/24 [Rx Confirmed 08/03/24] spironolactone 50 mg tablet 50 mg PO QAM #30 tabs 06/29/24 [Rx Confirmed 08/03/24] hydrocodone 5 mg-acetaminophen 325 mg tablet 1 tab PO Q8H PRN pain #14 tabs 08/09/24 [Rx] TARA Intake Visit Data Collection New Patient or Established: Established Patient (seen at [facility] within 3 years) Seen by Clinical Staff ONLY (RN/TARA): No Pain Present Currently: No Pain scale:: 0 Pain Scale Used: Curtis-Goetz/Numerical PCP or OBGYN visit in last 3 months: No Hx Now: No Do You Feel Safe at Home: Yes Authorities Contacted: N/A Smoking Status Smoking Status: Current some day smoker Cessation Counseling Provided: EDUARDO was advised that quitting smoking is the single most important factor to protect the health of themselves and their family. Discussed the benefits of quitting smoking with patient. Encouraged patient to quit smoking and provided Cessation assistance materials and resources. Immunization / Flu Flu Vaccine in the Last 12 Months: No Flu Vaccine Exclusion Criteria: No Exclusion Criteria Past Medical History Past Medical History NEUROLOGIC: Negative Neurological Disorders, Dementia or Seizures CARDIAC: Positive Hypercholesterolemia, Deep Vein Thrombosis and Hypertension; Negative Cardiac Disorders, Atrial Fibrillation, Coronary Artery Disease or Congestive Heart Failure RESPIRATORY: Positive Chronic Obstructive Pulmonary Disease (COPD), Asthma, Smoking and Tobacco Use GASTROINTESTINAL: Positive Gastroesophageal Reflux Disease; Negative Gastrointestinal Disorders, Cirrhosis or Celiac Disease GENITOURINARY: Positive Genitourinary Disorders; Negative Renal Disease MUSCULOSKELETAL: Positive Arthritis, Osteoporosis, Degenerative Disk Disease and Fractures; Negative Muscular Dystrophy or Bone Cancer ENDOCRINE: Negative Diabetes Mellitus Type 1 or Diabetes Mellitus Type 2 HEMATOLOGIC: Positive Anemia; Negative Sickle Cell Disease PSYCHO/SOCIAL: Positive Recreational Drug Use and Depression OTHER HISTORY: Positive Blood Transfusions; Negative Down Syndrome, Developmental Delay, Blood Transfusion Reaction or Anesthesia Reactions Family History FAMILY HISTORY: Positive Family Cardiac Disorders and Family Cancer Surgical History SURGICAL: Positive Abdominal Surgery, Gastric Bypass Surgery, Lumpectomy and Section Social History SMOKING STATUS: Smoking status: Current some day smoker ALCOHOL: Alcohol Intake: Current ALCOHOL FREQUENCY: Alcohol Intake Frequency: 0-2 Drinks per Day HOUSING: Housing: Apartment LIVES WITH: Lives With: Alone Patient Margarita Loco Social History Living Situation History Housing: Apartment Housing Other:: Pt short term stay with [facility] Tobacco History Smoking Status: Current some day smoker Packs per Day: 0.5 Number of Smoking Years (pipe): 45 Alcohol History Alcohol Intake: Current Alcohol Intake Frequency: 0-2 Drinks per Day Substance Use History Substance Use: meth quit 4 years Domestic Abuse History Do You Feel Safe at Home: Yes Review of Systems Report any current symptoms Only answer those that you have currently: Past Medical History Past Medical History Have you ever been diagnosed with any of the following: Neurological Problems Dementia: No Seizures: No Cardiology Problems Atrial Fibrillation: No Coronary Artery Disease: No Hypercholesterolemia: Yes Congestive Heart Failure: No Deep Vein Thrombosis: Yes Hypertension: Yes Respiratory Problems Chronic Obstructive Pulmonary Disease (COPD): Yes Asthma: Yes Smoking: Yes Tobacco Use: Yes Stomache/Intestinal Problems Cirrhosis: No Celiac Disease: No Gastroesophageal Reflux Disease: Yes Genital/Urinary Problems Renal Disease: No Musculoskeletal Problems Muscular Dystrophy: No Bone Cancer: No Arthritis: Yes Osteoporosis: Yes Degenerative Disk Disease: Yes Fractures: Yes Endocrine Problems Diabetes Mellitus Type 1: No Diabetes Mellitus Type 2: No Blood Problems Anemia: Yes Sickle Cell Disease: No Psychologic Problems Recreational Drug Use: Yes Depression: Yes Other Problems Down Syndrome: No Developmental Delay: No Blood Transfusions: Yes Blood Transfusion Reaction: No Anesthesia Reactions: No History of Present Illness HPI Narrative Miss Caban a 64 years old female with PMH of alcoholic liver cirrhosis, 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 Patient was recently discharged from [facility] after treatment for b/l LE cellulitis. Patient had completed course of Cefalexin and doxycycline after hospital discharge on 06/11/24. For the last x2 days patient has been experiencing vulvaginal erythema and pain. Patient denied discharge,dysuria, fever, chills, diarrhea or other associated symptoms. Per patient, she has history of having yeast infection post antibiotic treatments. Perscription for Diflucan 150 mg X1 with refills sent to pharmacy. Patient advised not to take refills unless no improvement in x1 week. Patient has upcoming appointment with Dr. Ly on 06/29/24. 06/29/2024: Came for a routine follow-up visit. Recently saw Dr. Singh for follow-up on hospital admission and yeast infection. As of today, patient denies any other complaints, reported that her vulvovaginal erythema and pain sunsided with fluconazole and also noted that her bilateral lower extremity swelling is decreasing. But still continued to smoke cigarettes, half a pack per day and 1/2 drinks per day. 08/03/2024 : Came for follow up visit after discharge from rehab. Patient had a recent history of fall after sliding from wheel chair during sleep and went to the ED on 06/30/2024 following which she was diagnosed to have acute comminuted displaced fracture of the distal shaft of the left femur. Later she is transferred to [facility] for further treatment and patient underwent repair, placed in rehab center and got discharged on 08/03/2024 from rehab. Complaining of tiredness after waking up in the morning. Denies any other complaints except for pain at the site of fracture. Stopped alcohol but still continuing to smoke. Office Procedures [facility] Level of Care Nursing/Assessment Patient Status: Established Patient Nursing Assessment/Reassessment: Medication Reconciliation, Update PMH in EMR and Vital Signs Coordination of Care: Complex Care and Chronic Disease 1-5, Consent,records obtained, informed consent, Education Simp Pt/Fam, Lab and Imaging orders and Staff clarify orders Established Patient Charge Established Patient Point Assignment: 100 Established Patient Point Charge: EP Level 3 (80-115)
== END 2024-05-25 14:43 | disposition home or self-care (01) ==
LOC: HODAHC 13:33
PROVIDERS: Supervising Provider Internal Medicine
DX: B37.31 Acute candidiasis of vulva and vagina (principal); Z86.718 Personal history of other venous thrombosis and embolism; Z79.01 Long term (current) use of anticoagulants
CPT/HCPCS: 99213; G0463

== ENCOUNTER 2024-05-31 21:58 | Observation (INO) | payer MEDICAID, SELFPAY ==
[2024-05-31 22:18] VITALS: PULSE 100
--- NOTE | 2024-05-31 22:44 | PD.EDEXREM ---
ED Extremity Problem RME/HPI General Chief complaint: Extremity Problem,Nontraumatic Stated complaint: SWELLING TO LEGS Time Seen by Provider: 05/31/24 22:45 Arrival date/time: 05/31/24 21:58 RME / HPI RME / HPI Narrative: This section includes all my notes and documentations, including HPI, PE, and ED course. Stephane Cervantes MD HPI: 64yo female with a history of COPD, asthma, on Eliquis, cirrhosis BIBA from home presents to the ED for a chief complaint of BLE pain and swelling x 2 weeks. Patient states she was seen by her PCP 1 week ago for the same complaint and had her Lasix increased. She states her BLE pain and swelling has persisted, reporting she's felt more short of breath, so she came in for evaluation. She reports having worsening productive cough (unknown color of phlegm) and has been unable to ambulate regularly due to dyspnea. Patient is on oxygen at home, but uses it as needed. She denies any chest pain. No other complaints reported. ROS: All negative except as documented in HPI. Physical Exam: General: Alert and oriented. Mild respiratory distress noted. Hypoxia noted. Eyes: Conjunctivae and lids clear. ENT: No nasal congestion. Neck: Supple. Heart: RRR. Lungs: Mild respiratory distress. Decreased air movement with wheezing bilaterally. Abdomen: Soft and nontender. Normal bowel sounds. No distension. No rebound or guarding. Back: No CVA tenderness. Legs: Severe swelling to the bilateral lower extremities with redness and warmth and tenderness. Skin: Warm and dry. Neuro: Alert and oriented X 3. I reviewed all diagnostic test results. My interpretation of the EKG is sinus rhythm with no acute ST?T changes. My interpretation of the chest x-ray is equivocal infiltrates. My review of the CT abdomen/pelvis report is NAD. My review of the CTA chest report is RLL consolidation. Blood tests and urine tests D-dimer 1140, K 2.5, Mg 1.4, and LA 6.1. At this point, diagnoses include Sepsis, Acute respiratory failure with hypoxia, COPD exacerbation, Pneumonia, Bilateral lower leg cellulitis, Hypokalemia, and Hypomagnesemia. Treatment here included Magnesium, Duoneb, Levaquin, Methylprednisolone, Morphine, Zofran, and Potassium. She remained stable. I discussed the case with our hospitalist.? About the presentation and exam and diagnostics and treatments here.? And need of further care in the hospital.? Will accept the patient. Stephane Cervantes MD Related Data Home Medications ?Medication ?Instructions ?Recorded ?Confirmed albuterol sulfate 90 mcg/actuation 2 inh inhalation Q6H PRN wheeze 10/27/22 05/25/24 aerosol inhaler duloxetine 60 mg capsule,delayed 60 mg PO DAILY 10/27/22 05/25/24 release lactulose 10 gram/15 mL oral syrup 20 g PO BID 02/12/23 05/25/24 levothyroxine 50 mcg capsule 50 mcg PO AC 02/12/23 05/25/24 atorvastatin 20 mg tablet 20 mg PO DAILY 02/01/24 05/25/24 ergocalciferol (vitamin D2) 1,250 1,250 mcg PO QWEEK 05/18/24 05/25/24 mcg (50,000 unit) capsule meloxicam 7.5 mg tablet 15 mg PO QDAY 05/18/24 05/25/24 Previous Rx's ?Medication ?Instructions ?Recorded apixaban 5 mg tablet (Eliquis) 5 mg PO BID #60 tabs 02/14/23 naloxone 4 mg/actuation nasal 4 mg intranasal Q2M PRN opioid 02/03/24 spray (Narcan) overdose #2 ea pregabalin 100 mg capsule 100 mg PO TID #90 caps 05/18/24 furosemide 40 mg tablet 40 mg PO BID #60 tabs 05/25/24 spironolactone 50 mg tablet 50 mg PO QAM #30 tabs 05/25/24 (Aldactone) thiamine HCl (vitamin B1) 100 mg 100 mg PO QDAY #30 tabs 05/25/24 tablet tramadol 50 mg tablet 50 mg PO Q8H PRN pain #14 tabs 05/25/24 Allergies Allergy/AdvReac Type Severity Reaction Status Date / Time Penicillins Allergy Severe Anaphylaxis Verified 05/25/24 14:06 erythromycin base AdvReac Intermediate Abdominal Verified 05/25/24 14:06 Pain Review of Systems Review of Systems Systems Reviewed: All systems reviewed, normal except as documented Past Medical History Past Medical History NEUROLOGIC: Negative Neurological Disorders, Dementia or Seizures CARDIAC: Positive Hypercholesterolemia, Deep Vein Thrombosis and Hypertension; Negative Cardiac Disorders, Atrial Fibrillation, Coronary Artery Disease or Congestive Heart Failure RESPIRATORY: Positive Chronic Obstructive Pulmonary Disease (COPD), Asthma, Smoking and Tobacco Use GASTROINTESTINAL: Positive Gastroesophageal Reflux Disease; Negative Gastrointestinal Disorders, Cirrhosis or Celiac Disease GENITOURINARY: Positive Genitourinary Disorders; Negative Renal Disease MUSCULOSKELETAL: Positive Arthritis, Osteoporosis, Degenerative Disk Disease and Fractures; Negative Musculoskeletal Disorders, Muscular Dystrophy or Bone Cancer ENDOCRINE: Negative Diabetes Mellitus Type 1 or Diabetes Mellitus Type 2 HEMATOLOGIC: Positive Anemia; Negative Sickle Cell Disease PSYCHO/SOCIAL: Positive Recreational Drug Use and Depression OTHER HISTORY: Positive Blood Transfusions; Negative Down Syndrome, Developmental Delay, Blood Transfusion Reaction or Anesthesia Reactions Family History FAMILY HISTORY: Positive Family Cardiac Disorders and Family Cancer Surgical History SURGICAL: Positive Abdominal Surgery, Gastric Bypass Surgery, Lumpectomy and Section Social History SMOKING STATUS: Current every day smoker SUBSTANCE USE: methamphetamine ED Exam Narrative Physical exam: As noted in HPI. Course Course Course Narrative: CXR is ordered for determining the etiology of shortness of breath. Quality Measures Possible source: pulmonary Blood cultures ordered: yes Antibiotic ordered: Yes Pertinent labs: 05/31/24 06/01/24 23:15 03:10 Lactic Acid 6.1 H* mMol/L 4.8 H* mMol/L (0.4-2.0) (0.4-2.0) Procalcitonin 0.25 ng/ml (0.0-0.49) sepsis Orders Category Date Time Status Bedside COVID-19 Antigen Test NOW Care 05/31/24 22:46 Completed Bedside Influenza A&B Antigen Test NOW Care 05/31/24 22:46 Completed COVID-19 Screening Questionnaire NOW Care 06/01/24 02:[address] Screening NOW Care 05/31/24 22:47 Completed Decision to Admit X1 Care 06/01/24 02:34 Completed EKG (ED ONLY) *Do not use* NOW Care 05/31/24 22:47 Completed In and Out Catheter X1 Care 05/31/24 23:49 Completed Saline [Insert IV] NOW Care 05/31/24 22:[address] abdomen pelvis w con Stat Exams 05/31/24 22:[address] angio chest Stat Exams 05/31/24 22:47 Taken EKG (ED Only) Stat Exams 05/31/24 22:47 Draft XR chest 1V portable Stat Exams 05/31/24 22:47 Completed ABG [Arterial Blood Gas] Stat Lab 05/31/24 23:47 Completed BNP [B-Type Natriuretic Peptide] Stat Lab 05/31/24 23:15 Completed Bilirubin,Direct Stat Lab 05/31/24 23:15 Completed Blood Culture (Lab) Stat Lab 05/31/24 23:10 Received CBC Stat Lab 05/31/24 23:58 Completed CMP [Comprehensive Metabolic Panel] Stat Lab 05/31/24 23:15 Completed CRP [C-Reactive Protein] Stat Lab 05/31/24 23:15 Completed D-Dimer Stat Lab 05/31/24 23:15 Completed Drug Screen,Urine Stat Lab 05/31/24 23:30 Completed ESR [Sed Rate (ESR)] Stat Lab 05/31/24 23:58 Completed Free T4 (Free Thyroxine) Stat Lab 05/31/24 23:15 Completed Lactate (Lactic Acid) Stat Lab 05/31/24 23:15 Completed Lactic Acid, 3 HR Stat Lab 06/01/24 03:10 Completed Magnesium Stat Lab 05/31/24 23:15 Completed PT [Prothrombin Time with INR] Stat Lab 05/31/24 23:15 Completed PTT [Partial Thromboplastin Time] Stat Lab 05/31/24 23:15 Completed Procalcitonin Stat Lab 05/31/24 23:15 Completed RSV [Respiratory Syncytial Virus Ag] Stat Lab 05/31/24 23:26 Completed TSH [Thyroid Stimulating Hormone] Stat Lab 05/31/24 23:15 Completed Troponin I Stat Lab 05/31/24 23:15 Completed UA, C/S IF [Urinalysis, C/S if Indicated] Stat Lab 05/31/24 23:30 Completed Albuterol/Ipratr Rt Charisse [Duoneb Rt Charisse] Med 05/31/24 22:48 Discontinued 3 ml INH X1 ONE KCL 10% Liq UDC 15 ML Med 06/01/24 00:46 Discontinued 40 meq PO X1 ONE Levofloxacin/D5w 500 mg Ivpb [Levaquin Ivpb] Med 05/31/24 23:43 Discontinued 500 mg in 100 ml IV X1 Magnesium Sulfate 2 GM Ivpb [Magnesium Sulfate Ivpb] Med 06/01/24 00:59 Discontinued 2 gm in 50 ml IV X1 MethylPREDNISolone.* [SoluMEDROL Inj] Med 05/31/24 22:48 Discontinued 125 mg IVP X1 ONE Morphine Inj Med 05/31/24 22:46 Discontinued 4 mg IVP X1 ONE Ondansetron Inj [Zofran Inj] Med 05/31/24 22:46 Discontinued 4 mg IV X1 ONE Ringers Lactated 1000 ml [Lactated Ringers] 1,000 ml Med 06/01/24 02:45 Discontinued IV 1,000 mls/hr Ringers Lactated 1000 ml [Lactated Ringers] 1,000 ml Med 06/01/24 02:45 Discontinued IV 1,000 mls/hr Ringers Lactated 1000 ml [Lactated Ringers] 1,000 ml Med 06/01/24 02:45 Discontinued IV 1,000 mls/hr Ringers Lactated 1000 ml [Lactated Ringers] 1,641 ml Med 06/01/24 02:44 Discontinued IV 1,641 mls/hr Vital Signs Vital signs: Vital Signs Temperature 97.8 F 05/31/24 23:12 Pulse Rate 97 05/31/24 23:12 Respiratory Rate 24 H 05/31/24 23:12 Blood Pressure 118/68 05/31/24 23:12 Pulse Oximetry (%) 96 05/31/24 23:12 Oxygen Delivery Method Room Air 05/31/24 23:12 Extremity Problem MDM Narrative MDM Narrative:: Scribe Attestation: 05/31/24 - Ya Hanna am scribing for and in the presence of Dr. Cervantes. Patient data External records reviewed:: [facility] previous records (Per chart review, patient was admitted here on 05/14/24 for acute hypokalemia.) Clinical information provided by:: patient Social determinants that could affect healthcare access:: none Patient has the following chronic illnesses:: COPD, asthma, history of DVT on Eliquis, cirrhosis How is presenting disease/condition affected by chronic disease/condition?: exacerbated by Evaluation data The following diagnostics were reviewed and interpreted by me:: lab results, radiology exam(s) and EKG tracing(s) (My interpretation of the EKG is: Sinus rhythm (96 bpm) with nonspecific ST-T changes. Stephane Cervantes MD) Lab and/or radiology exams considered but not ordered:: none Interpretation Summary: Sepsis, Acute respiratory failure with hypoxia, COPD exacerbation, Pneumonia, Bilateral lower leg cellulitis, Hypokalemia, Hypomagnesemia Medications / Prescriptions Medications or Prescriptions considered but not ordered:: none Medication administrations:: Medication Administration History Acetaminophen (Acetaminophen 325 Mg Tablet) 650 mg PO Q6H PRN PRN Reason: Fever >101.5 Stop: 07/01/24 03:23 Acetaminophen (Acetaminophen 325 Mg Tablet) 650 mg PO Q6H PRN PRN Reason: PAIN SCALE 1-3 (mild Stop: 07/01/24 03:23 Hydrocodone Bitart/Acetaminophen (Hydrocodone/Apap 5/325 Tablet) 1 tab PO Q4HR PRN PRN Reason: PAIN SCALE 4-6 (Moderate Stop: 06/06/24 03:23 Albuterol/Ipratropium (Albuterol/Ipratropium (Duoneb) Rt Charisse 3 Ml Nebu) 3 ml INH Q6HRRT DA Stop: 07/01/24 06:59 Apixaban (Apixaban 2.5 Mg Tablet) 5 mg PO BID [facility] Stop: 06/22/24 08:59 Hydromorphone HCl (Hydromorphone Inj 2 Mg/Ml Vial) 0.5 mg IVP Q6H PRN PRN Reason: PAIN SCALE 7-10 (Severe Stop: 06/06/24 03:23 Magnesium Sulfate (Magnesium Sulfate Ivpb) 4 gm in 50 mls @ 12.5 mls/hr IV X1 ONE Stop: 06/01/24 07:32 Last Admin: 06/01/24 04:02 Dose: 12.5 mls/hr Documented By: JOSUE Ceftriaxone Sodium/Dextrose (Rocephin/D5w 1gm Iv Premix) 1 gm in 50 mls @ 100 mls/hr IV Q24H [facility] Stop: 06/08/24 03:44 Last Infusion: 06/01/24 05:15 Dose: Infused Documented By: Admin: 06/01/24 04:41 Dose: 100 mls/hr Documented By: EE Doxycycline Hyclate 100 mg/ (Sodium Chloride) 100 mls @ 100 mls/hr IV Q12H [facility] Stop: 06/08/24 03:44 Ondansetron HCl (Ondansetron Inj 2 Mg/Ml Inj 2 Ml) 4 mg IV Q6H PRN; Protocol PRN Reason: NAUSEA OR VOMITING Stop: 07/01/24 03:23 Discontinued Medications Albuterol/Ipratropium (Albuterol/Ipratropium (Duoneb) Rt Charisse 3 Ml Nebu) 3 ml INH X1 ONE Stop: 05/31/24 22:49 Last Admin: 05/31/24 23:39 Dose: 3 ml Documented By: KACIE Furosemide (Furosemide Inj 10 Mg/Ml 4ml Vial) 40 mg IVP Q12H ONE Stop: 06/01/24 03:36 Last Admin: 06/01/24 03:57 Dose: 40 mg Documented By: EE Levofloxacin/Dextrose (Levaquin Ivpb) 500 mg in 100 mls @ 100 mls/hr IV X1 ONE Stop: 06/01/24 00:42 Last Infusion: 06/01/24 01:03 Dose: Infused Documented By: Admin: 06/01/24 00:00 Dose: 100 mls/hr Documented By: CVL Magnesium Sulfate (Magnesium Sulfate Ivpb) 2 gm in 50 mls @ 25 mls/hr IV X1 ONE Stop: 06/01/24 02:58 Last Infusion: 06/01/24 04:39 Dose: Infused Documented By: Admin: 06/01/24 01:34 Dose: 25 mls/hr Documented By: CVL Lactated Ringer's (Lactated Ringers) 1,000 mls @ 1,000 mls/hr IV .Q1H DA Stop: 07/01/24 02:44 Lactated Ringer's (Lactated Ringers) 1,000 mls @ 1,000 mls/hr IV .Q1H DA Stop: 07/01/24 02:44 Lactated Ringer's (Lactated Ringers) 1,000 mls @ 1,000 mls/hr IV .Q1H DA Stop: 07/01/24 02:44 Lactated Ringer's (Lactated Ringers) 1,641 mls @ 1,641 mls/hr 30 ml/kg infuse over 60 min (1641 ml) IV .Q1H ONE Stop: 06/01/24 03:43 Last Infusion: 06/01/24 04:00 Dose: Infused Documented By: Admin: 06/01/24 03:11 Dose: 1,641 mls/hr Documented By: LB Doxycycline Hyclate 100 mg/ (Sodium Chloride) 100 mls @ 100 mls/hr IV X1 ONE Stop: 06/01/24 04:44 Last Infusion: 06/01/24 05:20 Dose: Infused Documented By: Admin: 06/01/24 03:57 Dose: 100 mls/hr Documented By: EE Methylprednisolone Sodium Succinate (Methylprednisolone Sod Succ 62.5 Mg/Ml 2ml Vial) 125 mg IVP X1 ONE Stop: 05/31/24 22:49 Last Admin: 05/31/24 23:30 Dose: 125 mg Documented By: EE Morphine Sulfate (Morphine Sulf Inj 10 Mg/Ml Vial) 4 mg IVP X1 ONE Stop: 05/31/24 22:47 Last Admin: 05/31/24 23:31 Dose: 4 mg Documented By: EE Ondansetron HCl (Ondansetron Inj 2 Mg/Ml Inj 2 Ml) 4 mg IV X1 ONE; Protocol Stop: 05/31/24 22:47 Last Admin: 05/31/24 23:31 Dose: 4 mg Documented By: EE Potassium Chloride (Potassium Chloride 10% 20 Meq/15 Ml Udc) 40 meq PO X1 ONE Stop: 06/01/24 00:47 Last Admin: 06/01/24 01:29 Dose: 40 meq Documented By: CVL Potassium Chloride (Potassium Chloride 10% 20 Meq/15 Ml Udc) 40 meq PO X1 ONE Stop: 06/01/24 03:35 Last Admin: 06/01/24 04:41 Dose: 40 meq Documented By: EE From id, patient was given magnesium, Duoneb, Levaquin, Methylprednisolone, Morphine, Zofran, Potassium. Consultations Consultation(s) initiated? (list below): No Diagnosis Extremity Problem Differential Diagnosis: gout, cellulitis, superficial thrombophlebitis, deep vein thrombosis of lower extremity and other (UTI, pneumonia, COVID, influenza, sepsis) Most likely diagnosis given after review of the tests above:: Sepsis, Acute respiratory failure with hypoxia, COPD exacerbation, Pneumonia, Bilateral lower leg cellulitis, Hypokalemia, Hypomagnesemia Admission Indicated Admission indicated?: indicated Explain why admission is indicated or not indicated:: Sepsis and respiratory failure Admission Request Was there a request for admission?: Yes Admission Attestation Admission request attestation: Discussed case with Hospitalist service regarding admission. Discussed patients ED course, exam findings, labs, and radiology results. The Hospitalist [agrees] to accept the patient for admission. Disposition Plan Disposition Plan: Admit Critical Care Time Critical Care Time Critical Care Time: Yes Total Critical Care Time (min.): 36 Attestation: Due to a high probability of clinically significant, life threatening deterioration, the patient required my highest level of preparedness to intervene emergently and I personally spent this critical care time directly and personally managing the patient. This critical care time included obtaining a history; examining the patient; ordering and review of studies; arranging urgent treatment with development of a management plan; evaluation of patient's response to treatment; frequent reassessment; and discussions with family and other providers. It was exclusive of separately billable procedures and treating other patients and teaching time. Stephane Cervantes MD Discharge Plan Plan Patient Disposition: Admit Acute Care w/in Hospital Problem List Clinical Impression: Sepsis, Acute respiratory failure with hypoxia, COPD exacerbation, Pneumonia, Bilateral lower leg cellulitis, Hypokalemia, Hypomagnesemia
--- NOTE | 2024-05-31 22:47 | XR_ITS ---
Examination: CT abdomen with intravenous contrast CT pelvis with intravenous contrast 2-D coronal reconstructions 2-D sagittal reconstructions Date and time of exam:The June 01, 2024 0113 hrs. Indications: Onset generalized abdominal pain today Comparison: May 14, 2024. CTDI: vol (mGy) 18.5 DLP: (mGycm) 1000 4075 Technique: Multiple axial sections of the abdomen and pelvis have been obtained. 64 slice high-resolution scanner used. 3 mm axial sections have been obtained, post intravenous injection 100 cc Isovue-370 2-D sagittal, coronal reconstructions obtained. Low dose protocols were performed. One or more of the following dose reduction techniques were used; automated exposure control, adjustment of the mA and/or KV according to patient size, use of iterative reconstruction technique. Findings: Atelectasis in the lower lung zones Liver irregular in contour moderately enlarged with severe diffuse fatty infiltration Splenomegaly AP dimension 16 cm Absent gallbladder Common bile duct 14 mm No pancreatic or adrenal mass No renal or ureteral calculi Multiple anterior abdominal wall fat-containing hernia defects No bowel present in these hernia defects No bowel obstruction Anasarca No pericecal inflammatory change No bowel obstruction Colonic diverticulosis Urinary bladder with urinary bladder Trejo catheter, bladder contracted around a Trejo catheter No pelvic mass Advanced disc narrowing L2-L3, L3-L4, L4-L5 Impression: Significant hepatomegaly, cirrhosis Prominent splenomegaly Abnormal enlargement common bile duct 14 mm, recommend hepatobiliary sonography follow-up Anasarca No bowel obstruction Air in the urinary bladder, urinary bladder contracted around a Trejo catheter
--- NOTE | 2024-05-31 22:47 | XR_ITS ---
Examination: AP chest single view Technique: AP portable upright chest single view Exam date and time: May 31, 2024 1143 hrs. Comparison May 14, 2024 Indications: Shortness of breath today. Findings: Minimal prominence left ventricle No pneumonia or pulmonary edema Prominent osteopenia Impression: No pneumonia or pulmonary edema
--- NOTE | 2024-05-31 22:47 | XR_ITS ---
Examination: CTA chest with intravenous contrast 2-D reconstructions 3-D reconstructions, vascular Date and time of exam: June 01, 2024 0113 hrs. Indications: Shortness of breath chest pain beginning today CTDI: vol (mGy) 18.5 DLP: (mGycm) 2123 Technique: Multiple axial sections of the thorax have been obtained. 3 mm slice thickness, from below the hemidiaphragms to above the apices of the lungs. Mediastinal and lung density settings have been obtained. 2-D sagittal and coronal reconstructions. 3-D angiographic renderings, 3-D volume renderings, 3D post processing, vascular maximum intensity projections obtained. Contrast administered is 100 cc Isovue-370 intravenous. Low dose protocols were performed. One or more of the following dose reduction techniques were used; automated exposure control, adjustment of the mA and/or KV according to patient size, use of iterative reconstruction technique. Findings: No thoracic aortic aneurysm dilatation Main pulmonary artery segment 35 mm, no pulmonary artery filling defects No mediastinal lymphadenopathy Mild opacity right lung base consistent with pneumonia Diffuse fatty infiltration throughout the liver liver irregular in contour with prominent splenomegaly Impression: Negative for pulmonary artery emboli Mild pneumonia right base
--- NOTE | 2024-05-31 22:47 | EKG_ITS ---
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: : [id number] Requested By: Stephane Story Order Number: [id number] Reading MD: Stephane Story Measurements Intervals [place] Rate: 98 P: 69 DE: 191 QRS: -39 QRSD: 119 T: 79 QT: 386 QTc: 493 Interpretive Statements SINUS RHYTHM LEFT AXIS DEVIATION [QRS AXIS < -30] LOW QRS VOLTAGE IN PRECORDIAL LEADS [QRS DEFLECTION < 1.0 mV IN CHEST LEADS] MODERATE INTRAVENTRICULAR CONDUCTION DELAY [105+ ms QRS DURATION, 80+ ms Q/S IN V1/V2, NO Q AND 60+ ms R IN I/aVL/V5/V6] NONSPECIFIC T-WAVE ABNORMALITY Compared to ECG 05/14/2024 01:09:01 Low QRS voltage now present T-wave abnormality now present /store/S0/[id number].pdf
[2024-05-31 23:12] VITALS: BP 118/68; PULSE 97; RESP 24; TEMP 36.6; O2SAT 96; BMI 46.0
[2024-05-31] MEDS: MethylPREDNISolone SOD SUCC 62.5 MG/ML 2ML VIAL 125 MG IVP (23:30)
[2024-05-31] MEDS: MORPHINE SULF INJ 10 MG/ML VIAL 4 MG IVP (23:31)
[2024-05-31] MEDS: ONDANSETRON INJ 2 MG/ML INJ 2 ML 4 MG IV (23:31)
[2024-05-31 23:39] LABS: Lactate (Lactic Acid) 6.1 mMol/L (0.4-2.0)
[2024-05-31] MEDS: ALBUTEROL/IPRATROPIUM (Duoneb) RT SOL 3 ML NEBU INH (23:39)
[2024-05-31 23:44] LABS: D-Dimer 1140 ng/mL (<600)
[2024-05-31 23:46] LABS: INR 1.3 (0.9-1.3); Prothrombin Time 13.5 Seconds (9.0-12.2)
[2024-05-31 23:49] LABS: B-Type Natriuretic Peptide 43 pg/mL (0-100)
[2024-05-31 23:53] LABS: Base Excess -1 (-3-3); HCO3 25 mEq/L (20-26); Inspired Oxygen, FIO2 21 %; O2 Saturation 90 % (91-98); PCO2 45 mmHg (32.0-48.0); PO2 63 mmHg (83-108); pH, Arterial 7.36 (7.35-7.45)
[2024-05-31 23:57] VITALS: PULSE 94; RESP 16; O2SAT 100
[2024-05-31 23:59] LABS: Allen Test Performed/OK; Puncture Site Right Radial
[2024-06-01] VITALS (15 sets, daily range): BP systolic 95–114; BP diastolic 48–78; PULSE 74–105; RESP 15–19; TEMP 36.1–37.1; O2SAT 88–100; BMI 46.8
[2024-06-01] MEDS: LEVOFLOXACIN/D5W 500 MG IVPB 500 MG/100 ML BAG 100 MG IV
[2024-06-01 00:10] LABS: Alanine Aminotransferase 17 U/L (10-49); Albumin, Serum 2.5 gm/dL (3.4-4.8); Albumin/Globulin Ratio 0.7 (1.2-2.2); Alkaline Phosphatase 204 U/L (46-116); Anion Gap 10 (7-16); Aspartate Amino Transferase 53 U/L (0-34); BUN/Creatinine Ratio 10 Ratio (12-20); Bilirubin,Direct 0.2 mg/dL (0.0-0.3); Bilirubin,Total 0.3 mg/dL (0.3-1.2); Blood Urea Nitrogen 6 mg/dL (9-23); Calcium 7.6 mg/dL (8.3-10.6); Calcium (Corrected) 8.8 mg/dL (8.5-10.1); Carbon Dioxide 22.6 mMol/L (20.0-31.0); Chloride 104 mMol/L (98-107); Creatinine (Component) 0.6 mg/dL (0.6-1.3); Free T4 (Free Thyroxine) 0.94 ng/dL (0.89-1.76); Globulin 3.4 gm/dL (2.3-3.5); Glucose 123 mg/dL (74-106); Magnesium 1.4 mg/dL (1.6-2.6); Osmolality,Calculated 272 (275-295); Procalcitonin 0.25 ng/ml (0.0-0.49); Sodium 137 mMol/L (136-145); Thyroid Stimulating Hormone 3.99 uIU/mL (0.55-4.78); Total Protein 5.9 gm/dL (5.7-8.2); Troponin I < 0.002 ng/mL (0.0-0.045); eGFR > 60 See Note
[2024-06-01 00:10] LABS: Collection Type, Urine Clean Catch
[2024-06-01 00:12] LABS: Basophils # (Auto) 0.1 Thou/mm3 (0.0-0.2); Basophils % (Auto) 1 % (0-2.5); Eosinophils # (Auto) 0.2 Thou/mm3 (0.0-0.5); Eosinophils % (Auto) 2 % (0-10); Hematocrit 29.6 % (36.0-46.0); Hemoglobin 8.9 g/dL (12.0-16.0); Immature Granulocytes % (Auto) 2 % (0-0); Immature Granulocytes Auto 0.14 Thou/mm3 (0.00-0.00); Lymphocytes # (Auto) 2.5 Thou/mm3 (1.0-4.8); Lymphocytes % (Auto) 27 % (10-50); Mean Corpuscular HGB Conc 30.1 g/dl (31.0-37.0); Mean Corpuscular Hemoglobin 29.8 pg (25.0-35.0); Mean Corpuscular Volume 99 fL (80-100); Monocytes # (Auto) 0.9 Thou/mm3 (0.0-0.8); Monocytes % (Auto) 10 % (0-12); Neutrophils # (Auto) 5.7 Thou/mm3 (1.8-7.7); Neutrophils % (Auto) 60 % (37-80); Nucleated Red Blood Cell # 0.02 Thou/mm3 (0.00-0.00); Nucleated Red Blood Cell % 0 /100 WBC (0); Platelet Count 285 Thou/mm3 (140-440); RDW Standard Deviation 68.5 fL (36.4-46.3); Red Blood Count 2.99 Miln/mm3 (4.00-5.20); White Blood Count 9.5 Thou/mm3 (3.6-11.0)
[2024-06-01 00:34] LABS: Bilirubin,Urine Negative (Negative); Blood,Urine Trace (Negative); Clarity,Urine Clear (Clear/Hazy); Color,Urine Lt-Yellow (Lt Yel-Yel); Culture Indicated,Urine Not Indicated; Glucose, Urine Negative (Negative); Ketones,Urine Negative (Negative); Leukocyte Esterase,Urine Negative (Negative); Nitrite,Urine Negative (Negative); Protein,Urine Negative (Neg - Trace); RBC,Urine 1 /hpf (0-3); Specific Gravity,Urine 1.005 (1.001-1.035); Squamous Epithelial Cell,Urine 1 /hpf (0-5); Urobilinogen,Urine Negative mg/dL (0.0-1.0); WBC,Urine 1 /hpf (0-5)
[2024-06-01 00:35] LABS: Sed Rate (ESR) 32 mm/hr (0-30)
[2024-06-01 00:44] LABS: Potassium 2.5 mMol/L (3.4-5.1)
[2024-06-01 01:16] LABS: C-Reactive Protein 4.1 mg/dL (0.0-0.9)
[2024-06-01 01:22] LABS: Respiratory Syncytial Virus Ag Negative (Negative)
[2024-06-01 01:24] LABS: Amphetamine/Methamp Scrn,U Negative (Negative); Barbiturate Screen,Urine Negative (Negative); Benzodiazepines Screen,Urine Positive (Negative); Benzoylecgonine Screen, Ur Negative (Negative); Fentanyl Screen,Urine Negative (Negative); Opiate Screen,Urine Negative (Negative); THC Screen,Urine Negative (Negative)
[2024-06-01] MEDS: POTASSIUM CHLORIDE 10% 20 MEQ/15 ML UDC 40 MEQ PO ×2 (01:29→04:41)
[2024-06-01] MEDS: Magnesium Sulfate 2 GM Ivpb 2 GM/50 ML BAG IV (01:34)
--- NOTE | 2024-06-01 02:20 | PRELIM_ITS ---
CT angiogram of the chest with intravenous contrast (axial sections with sagittal and coronal reformats) June 01, 2024 0113 hours Clinical History: Shortness of breath. Technique:Helical axial sections with sagittal and coronal reformats of the chest were obtained with intravenous contrast. Iterative reconstruction technique was employed to reduce patient radiation exposure. 3D/MIP reconstructed images were also provided. Comparison: None. Findings: There is no filling defect within the pulmonary artery divisions to suggest pulmonary thromboembolism. The mediastinum demonstrates no evidence of mass or lymphadenopathy. The thoracic aorta is unremarkable. There is no pericardial effusion. Right lower lobe consolidation. No evidence of pleural effusion or pneumothorax. The osseous structures are unremarkable. Please, see separate report for description of the abdominal findings. Impression: No CT evidence of pulmonary thromboembolism. Right lower lobe consolidation suspicious for pneumonia. Report Electronically Signed By: Freddy Alonzo 06/01/2024 2:19:52 AM [EST]
--- NOTE | 2024-06-01 02:25 | PRELIM_ITS ---
CT scan of the abdomen and pelvis with intravenous contrast (axial sections with sagittal and coronal reformats) June 01, 2024 0113 hours Clinical History: Abdominal pain. Comparison: None available at the time of this report. Findings: Please, see separate report for description of the chest findings. The pancreas, kidneys and adrenals are unremarkable. Splenomegaly with anteroposterior diameter of 17.1 cm Liver steatosis. Irregular liver margins. Hepatomegaly. Status postcholecystectomy. No biliary duct dilation. No evidence of bowel obstruction. No evidence of appendicitis. There is no mesenteric or retroperitoneal adenopathy. Trejo catheter in place, the urinary bladder is not distended, limited evaluation, air within the urinary bladder. There is no free fluid or free air. Chronic degenerative changes of the imaged portions of the spine. Chronic multilevel disc disease. No acute fractures. Vascular calcification. Status post gastric bypass surgery. The uterus and ovaries are within normal limits. Impression: Cirrhosis associated with splenomegaly. Air within the urinary bladder, possibly postprocedural possibly due to cystitis. Please, correlate clinically. Report Electronically Signed By: Freddy Alonzo 06/01/2024 2:24:58 AM [EST]
[2024-06-01 02:26] LABS: Reflex Lactate? Y
[2024-06-01] MEDS: RINGERS LACTATED 1000 ML 1,641 ML 1641 ML IV (03:11)
[2024-06-01 03:30] LABS: Lactic Acid, 3 HR 4.8 mMol/L (0.4-2.0)
--- NOTE | 2024-06-01 03:39 | PD.RESHP ---
Documentation for date of: 06/01/24 [facility] History of Present Illness History of present illness: The patient is a 64-year-old female with significant past medical history of alcoholic liver cirrhosis, DVT on Eliquis, left fibular injury, chronic back pain, hypothyroidism, depression, left calf hematoma, bilateral osteoarthritis of knee, left tibial and fibular fracture presented to ED with chief complaint of bilateral leg pain and swelling for the past 2 weeks. The patient was recently admitted for similar presentation, and was following up as an outpatient, but failed outpatient treatment. The patient is wheelchair-bound, and occasionally uses oxygen 2 L at night. She also admitted mild increasing SOB, and requiring continuous oxygen for past couple of days. She admitted associated mild headache, mild erythema of bilateral leg more on left side, but denied any fever or chills, nausea or vomiting, any abdominal pain, any changes in bowel or bladder habit. In the ED her vitals were significant for blood pressure of 118/68, RR 24, pulse 97 saturating 96% on room air. CBC revealed hemoglobin 8.9, MCV 99, ESR 32, potassium 2.5, blood sugar 123, lactic acid 6.1, magnesium 1.4, AST 53, ALP 204, CRP 4.1, UA negative, U tox positive for benzodiazepine, negative RSV, influenza and COVID-19. Bilateral lower extremity Doppler was negative for DVT, CAT scan of bilateral lower extremity with IV contrast revealed cellulitis of bilateral lower extremities, hematoma in the subcutaneous plane of the left posterior calf, no active hemorrhage. CTA was negative for pulmonary embolism, right lower lobe consolidation suspicious for pneumonia. Abdomen/pelvis CT revealed cirrhosis associated with splenomegaly, air within the urinary bladder. PMH: As mentioned above SHX: Cholecystectomy, appendectomy, 2 sections, gastric bypass Social history: Denies alcohol, smoking or any illicit drug abuse Allergy: Penicillin, azithromycin and Ativan Medications: To be reconciled The patient received morphine sulfate IV, methylprednisone 125 Mg IV, Zofran 4 Mg IV, DuoNeb 3 mL INH, levofloxacin 500 mg IV, KCl 40M EQ p.o. x 1, magnesium sulfate 2 g x 1 in the ED. He was also started on bolus lactated Ringer's, that was discontinued by hospitalist team as the patient does not seem to be in sepsis, and seemed volume overload. Review of Systems Review of Systems Systems Reviewed: All systems reviewed, normal except as documented Exam Vital Signs Temp Pulse Resp BP Pulse Ox O2 Del Method O2 Flow Rate 98.4 F 105 H 18 108/61 94 L Nasal Cannula 2 06/01/24 01:34 06/01/24 01:34 06/01/24 01:34 06/01/24 01:34 06/01/24 01:34 06/01/24 01:34 06/01/24 01:34 Narrative Exam General: Morbidly obese woman, cooperative, no acute distress, Alert and Oriented x 3 HEENT: Moist mucous membranes, oropharynx clear Neck: Supple, No masses, No JVD CVS: S1S2 Regular rate and rhythm, No murmurs, rubs or gallops Lungs: Clear to auscultation with no accessory use, no wheeze no rhonchi Abd: Soft, NT/ND, +BS, no organomegaly Ext: 2+ bilateral lower limb edema and anasarca, difficult to palpate peripheral pulses due to edema Skin: Erythema over left lower leg on lateral aspect, and hematoma over left calf Psych: Appropriate mood and affect Results: Labs 06/01/24 03:10 05/31/24 23:15 Labs: Short CBC 05/31/24 Range/Units 23:58 WBC 9.5 (3.6-11.0) Thou/mm3 Hgb 8.9 L (12.0-16.0) g/dL Hct 29.6 L (36.0-46.0) % Plt Count 285 D (140-440) Thou/mm3 BMP 05/31/24 23:15 Sodium 137 Potassium 2.5 L* Chloride 104 Carbon Dioxide 22.6 BUN 6 L Creatinine 0.6 Glucose 123 H Calcium 7.6 L Cardiac Enzymes 05/31/24 Range/Units 23:15 Troponin I < 0.002 (0.0-0.045) ng/mL Liver Function 05/31/24 Range/Units 23:15 Total Bilirubin 0.3 (0.3-1.2) mg/dL Direct Bilirubin 0.2 (0.0-0.3) mg/dL AST 53 H (0-34) U/L ALT 17 (10-49) U/L Alkaline Phosphatase 204 H (46-116) U/L Albumin 2.5 L (3.4-4.8) gm/dL Urine 05/31/24 Range/Units 23:30 Urine Color Lt-Yellow (Lt Yel-Yel) Urine Clarity Clear (Clear/Hazy) Urine pH 6.0 (5.0-7.0) Ur Specific [place] 1.005 (1.001-1.035) Urine Protein Negative (Neg - Trace) Urine Glucose (UA) Negative (Negative) ABG Interpretation ABG results: 05/31/24 23:47 ABG pH 7.36 ABG pCO2 45 ABG pO2 63 L ABG HCO3 25 ABG O2 Saturation 90 L ABG Base Excess -1 Quality Measures Quality Measures sepsis Current suspected stage: ruled out (Clinically she doesn't appear to be in sepsis, and lactic acid is likely type 2; 2/2 cirrhosis) Possible source: pulmonary Blood cultures ordered: yes Antibiotic ordered: Yes Medications Home Medications and Allergies Home Medications ?Medication ?Instructions ?Recorded ?Confirmed ?Type albuterol sulfate 90 mcg/actuation 2 inh inhalation Q6H PRN wheeze 10/27/22 05/25/24 History aerosol inhaler duloxetine 60 mg capsule,delayed 60 mg PO DAILY 10/27/22 05/25/24 History release lactulose 10 gram/15 mL oral syrup 20 g PO BID 02/12/23 05/25/24 History levothyroxine 50 mcg capsule 50 mcg PO AC 02/12/23 05/25/24 History atorvastatin 20 mg tablet 20 mg PO DAILY 02/01/24 05/25/24 History ergocalciferol (vitamin D2) 1,250 1,250 mcg PO QWEEK 05/18/24 05/25/24 History mcg (50,000 unit) capsule meloxicam 7.5 mg tablet 15 mg PO QDAY 05/18/24 05/25/24 History Allergies Allergy/AdvReac Type Severity Reaction Status Date / Time Penicillins Allergy Severe Anaphylaxis Verified 05/25/24 14:06 erythromycin base AdvReac Intermediate Abdominal Verified 05/25/24 14:06 Pain Visit Medications Acetaminophen (Acetaminophen 325 Mg Tablet) 650 mg PO Q6H PRN PRN Reason: Fever >101.5 Stop: 07/01/24 03:23 Acetaminophen (Acetaminophen 325 Mg Tablet) 650 mg PO Q6H PRN PRN Reason: PAIN SCALE 1-3 (mild Stop: 07/01/24 03:23 Hydrocodone Bitart/Acetaminophen (Hydrocodone/Apap 5/325 Tablet) 1 tab PO Q4HR PRN PRN Reason: PAIN SCALE 4-6 (Moderate Stop: 06/06/24 03:23 Albuterol/Ipratropium (Albuterol/Ipratropium (Duoneb) Rt Charisse 3 Ml Nebu) 3 ml INH Q6HRRT DA Stop: 07/01/24 06:59 Furosemide (Furosemide Inj 10 Mg/Ml 4ml Vial) 40 mg IVP Q12H ONE Stop: 06/01/24 03:36 Hydromorphone HCl (Hydromorphone Inj 2 Mg/Ml Vial) 0.5 mg IVP Q6H PRN PRN Reason: PAIN SCALE 7-10 (Severe Stop: 06/06/24 03:23 Magnesium Sulfate (Magnesium Sulfate Ivpb) 4 gm in 50 mls @ 12.5 mls/hr IV X1 ONE Stop: 06/01/24 07:32 Ceftriaxone Sodium/Dextrose (Rocephin/D5w 1gm Iv Premix) 50 mls @ 100 mls/hr IV Q24H DA Stop: 06/08/24 03:44 Doxycycline Hyclate 100 mg/ (Sodium Chloride) 100 mls @ 100 mls/hr IV Q12H DA Stop: 06/08/24 03:44 Ondansetron HCl (Ondansetron Inj 2 Mg/Ml Inj 2 Ml) 4 mg IV Q6H PRN; Protocol PRN Reason: NAUSEA OR VOMITING Stop: 07/01/24 03:23 Potassium Chloride (Potassium Chloride 10% 20 Meq/15 Ml Udc) 40 meq PO X1 ONE Stop: 06/01/24 03:35 Discontinued Medications Albuterol/Ipratropium (Albuterol/Ipratropium (Duoneb) Rt Charisse 3 Ml Nebu) 3 ml INH X1 ONE Stop: 05/31/24 22:49 Last Admin: 05/31/24 23:39 Dose: 3 ml Levofloxacin/Dextrose (Levaquin Ivpb) 500 mg in 100 mls @ 100 mls/hr IV X1 ONE Stop: 06/01/24 00:42 Last Infusion: 06/01/24 01:03 Dose: Infused Magnesium Sulfate (Magnesium Sulfate Ivpb) 2 gm in 50 mls @ 25 mls/hr IV X1 ONE Stop: 06/01/24 02:58 Last Admin: 06/01/24 01:34 Dose: 25 mls/hr Lactated Ringer's (Lactated Ringers) 1,000 mls @ 1,000 mls/hr IV .Q1H DA Stop: 07/01/24 02:44 Lactated Ringer's (Lactated Ringers) 1,000 mls @ 1,000 mls/hr IV .Q1H DA Stop: 07/01/24 02:44 Lactated Ringer's (Lactated Ringers) 1,000 mls @ 1,000 mls/hr IV .Q1H DA Stop: 07/01/24 02:44 Lactated Ringer's (Lactated Ringers) 1,641 mls @ 1,641 mls/hr 30 ml/kg infuse over 60 min (1641 ml) IV .Q1H ONE Stop: 06/01/24 03:43 Last Admin: 06/01/24 03:11 Dose: 1,641 mls/hr Methylprednisolone Sodium Succinate (Methylprednisolone Sod Succ 62.5 Mg/Ml 2ml Vial) 125 mg IVP X1 ONE Stop: 05/31/24 22:49 Last Admin: 05/31/24 23:30 Dose: 125 mg Morphine Sulfate (Morphine Sulf Inj 10 Mg/Ml Vial) 4 mg IVP X1 ONE Stop: 05/31/24 22:47 Last Admin: 05/31/24 23:31 Dose: 4 mg Ondansetron HCl (Ondansetron Inj 2 Mg/Ml Inj 2 Ml) 4 mg IV X1 ONE; Protocol Stop: 05/31/24 22:47 Last Admin: 05/31/24 23:31 Dose: 4 mg Potassium Chloride (Potassium Chloride 10% 20 Meq/15 Ml Udc) 40 meq PO X1 ONE Stop: 06/01/24 00:47 Last Admin: 06/01/24 01:29 Dose: 40 meq Assessment & Plan Plan The patient is a 64-year-old female with significant past medical history of alcoholic liver cirrhosis, DVT on Eliquis, left fibular injury, chronic back pain, hypothyroidism, depression, left calf hematoma, bilateral osteoarthritis of knee, left tibial and fibular fracture presented to ED with chief complaint of bilateral leg pain and swelling for the past 2 weeks. The patient is admitted to [facility] telemetry unit for further management of bilateral lower extremity edema secondary to cellulitis; and possible community-acquired pneumonia. #Bilateral lower extremity edema #Bilateral lower extremity cellulitis #Rule out bilateral lower extremity DVT #Rule out pulmonary embolism Likely secondary to volume overload in the setting of cirrhosis Patient failed outpatient Lasix trial, and will need IV Lasix Bilateral lower extremity Doppler was negative for DVT, CAT scan of bilateral lower extremity with IV contrast revealed cellulitis of bilateral lower extremities, hematoma in the subcutaneous plane of the left posterior calf, no active hemorrhage. CTA chest was negative for pulmonary embolism, right lower lobe consolidation suspicious for pneumonia -Started the patient on Lasix 40 Mg IV twice daily, may consider adding Aldactone in the setting of cirrhosis - On IV ceftriaxone and doxycycline for cellulitis - Strict ins and outs - Fluid restriction to 1200 cc daily #Acute hypoxic respiratory failure 2/2 #Possible community-acquired pneumonia #Pulmonary arterial hypertension Patient reported worsening of SOB, and increasing oxygen requirement CTA chest revealed right lower lobe consolidation suspicious for pneumonia TTE done on January 2024 revealed RVSP of 50, and LVEF 55% - Oxygen as needed - DuoNeb every 6 hourly - On ceftriaxone and doxycycline IV - Ordered TTE to compare RVSP from the previous one. #Hypokalemia #Hypomagnesemia Patient presented with potassium of 2.5 and magnesium of 1.4 Patient received 2 g of IV magnesium sulfate and 40 mEq p.o. KCl in the ED - Further repleted with 40 mEq of p.o. KCl - Further ordered 4 g of IV magnesium sulfate - Daily a.m. labs for potassium and magnesium, replete as needed #Lactic acidosis, likely type II 2/2 #Alcoholic cirrhosis Presented with lactic acid of 6.1, but it has always been high on previous hospitalization, it further trended down to 4.8 - Continue to manage with IV diuretics, and consider adding Aldactone if blood pressure allows - Daily a.m. labs for CMP and electrolytes #Left calf hematoma Patient has history of left calf hematoma after being stopped on toilet pappas a long time ago - Continue to monitor #History of DVT - Continue on Eliquis 5 Mg twice daily Health maintenance: Dispo: Patient admitted to [facility] telemetry unit for further management of bilateral lower limb edema secondary to bilateral leg cellulitis complicated by cirrhosis, and possible community-acquired pneumonia Diet: Cardiac diet, fluid restriction 1200 cc/day DVT prophylaxis: On Eliquis 5 Mg twice daily CODE STATUS: Full code The patient's management plan was discussed with my attending physician MD Caleb Jerome MD, PGY2 Attending Provider Attestation/Addendum I have examined the patient, reviewed labs and imaging findings, discussed the case with the resident(s), and reviewed entered orders. I agree with the plan of care as outlined in this note, with these additional summaries/recommendations: Patient is a 64-year-old female with a medical history of liver cirrhosis secondary to alcohol use, left fibular fracture, chronic left lower extremity hematoma, COPD, GERD, hypothyroidism, depression, chronic lower back pain, deep vein thrombosis,, and obesity who presents to [facility] emergency department on 05/31/2024 with chief complaint of bilateral lower extremity swelling and pain. Patient seen at bedside. She reports the reason she came to the hospital is because of severe bilateral lower extremity swelling and pain. Patient was prescribed oral diuretics although she has not been taking as prescribed because it makes her pee too much and she is unable to mobilize to go to the bathroom often. She has 3+ bilateral lower extremity edema. Patient will be admitted for IV diuresis. Trejo catheter in place. Lower extremity edema concerning for CHF and echocardiogram ordered. Hypokalemia present with potassium 2.5 on admission. We will aggressively replete potassium given patient will be undergoing IV diuresis. Patient appears to have superimposed cellulitis of left lower extremity and will start antibiotics. Blood cultures taken in the ED, f/u results when available. Patient endorses productive cough but appears more chronic in nature. CT showed right lower lobe consolidation suspicious for pneumonia. Start IV antibiotics. There was concern for sepsis in the emergency department although no evidence of endorgan damage and low suspicion at this time. Patient was started on sepsis fluid resuscitation which we discontinued given her fluid overloaded status. Patient does have significant lactic acidosis although I feel this is mostly type B lactic acidosis from underlying cirrhosis. Lactic acid is chronically elevated although currently is above her usual baseline. Will continue to trend for now. Continue supplemental oxygen. Patient uses home oxygen although she is unsure how much she uses. Patient has history of lower extremity deep vein thrombosis and left lower extremity hematoma which appears unchanged from previous imaging and documentation. We will resume home Eliquis and continue to monitor hematoma closely. Hypomagnesia present, replacement given, repeat level in AM. Patient?s cirrhosis relatively compensated at this time. Low-salt diet and limit Tylenol use. Recommend starting spironolactone once patient is more improved. DuoNebs as needed for history of COPD. Does not appear to be in COPD exacerbation at this time. Pain management as needed. Resume home levothyroxine. Patient does have history of alcohol withdrawal and if symptoms develop we will start CIWA. Patient updated on the plan and in agreement. All questions answered to satisfaction. Please see residents note for additional recommendations and management. Dr. Liberty MD
[2024-06-01] MEDS: FUROSEMIDE INJ 10 MG/ML 4ML VIAL 40 MG IVP (03:57)
[2024-06-01] MEDS: DOXYCYCLINE INJ 100 MG in SODIUM CHLORIDE 0.9% (POP) 100 ML IV (03:57)
[2024-06-01] MEDS: Magnesium Sulfate 4 GM Ivpb 4 GM/50 ML BAG IV (04:02)
[2024-06-01 04:18] LABS: Basophils % (Auto) 0 % (0-2.5); Eosinophils % (Auto) 0 % (0-10); Hematocrit 29.9 % (36.0-46.0); Hemoglobin 9.1 g/dL (12.0-16.0); Immature Granulocytes % (Auto) 2 % (0-0); Immature Granulocytes Auto 0.15 Thou/mm3 (0.00-0.00); Lymphocytes # (Auto) 0.6 Thou/mm3 (1.0-4.8); Lymphocytes % (Auto) 9 % (10-50); Mean Corpuscular HGB Conc 30.4 g/dl (31.0-37.0); Mean Corpuscular Hemoglobin 30.2 pg (25.0-35.0); Mean Corpuscular Volume 99 fL (80-100); Monocytes # (Auto) 0.2 Thou/mm3 (0.0-0.8); Monocytes % (Auto) 3 % (0-12); Neutrophils # (Auto) 5.9 Thou/mm3 (1.8-7.7); Neutrophils % (Auto) 86 % (37-80); Nucleated Red Blood Cell % 0 /100 WBC (0); Platelet Count 282 Thou/mm3 (140-440); Red Blood Count 3.01 Miln/mm3 (4.00-5.20); White Blood Count 6.8 Thou/mm3 (3.6-11.0)
[2024-06-01] MEDS: cefTRIAXone/D5w 1gm IV premix 1 GM/50 ML BAG IV (04:41)
[2024-06-01 04:47] LABS: Alanine Aminotransferase 23 U/L (10-49); Albumin, Serum 2.6 gm/dL (3.4-4.8); Albumin/Globulin Ratio 0.8 (1.2-2.2); Alkaline Phosphatase 211 U/L (46-116); Anion Gap 10 (7-16); Aspartate Amino Transferase 72 U/L (0-34); BUN/Creatinine Ratio 8 Ratio (12-20); Bilirubin,Total 0.3 mg/dL (0.3-1.2); Blood Urea Nitrogen 5 mg/dL (9-23); Calcium 7.6 mg/dL (8.3-10.6); Calcium (Corrected) 8.7 mg/dL (8.5-10.1); Carbon Dioxide 22.6 mMol/L (20.0-31.0); Chloride 103 mMol/L (98-107); Cholesterol 81 mg/dL (132-200); Creatinine (Component) 0.6 mg/dL (0.6-1.3); Globulin 3.4 gm/dL (2.3-3.5); Glucose 167 mg/dL (74-106); HDL Cholesterol < 10 mg/dL (40-60); LDL Cholesterol,Calculated 38 mg/dL (0-130); Magnesium 1.9 mg/dL (1.6-2.6); Osmolality,Calculated 273 (275-295); Potassium 3.8 mMol/L (3.4-5.1); Sodium 136 mMol/L (136-145); Thyroid Stimulating Hormone 2.57 uIU/mL (0.55-4.78); Triglycerides 165 mg/dL (30-150); eGFR > 60 See Note
--- NOTE | 2024-06-01 05:35 | PC.NURSE ---
Report received, pt arrived to room 357 via gurney transferred to bed. Pt connected to tele box and oxygen. Pt oriented to room, call light placed within reach nursing care began at this time.
[2024-06-01] MEDS: HYDROmorphone INJ 2 MG/ML VIAL 0.5 MG IVP (05:57)
[2024-06-01] MEDS: APIXABAN 2.5 MG TABLET 5 MG PO ×2 (08:46→20:20)
--- NOTE | 2024-06-01 10:48 | PC.SS ---
Addendum entered by Peace Villatoro 06/01/24 11:15: SS follow up note; Patient confirmed she does utilize home 02 at 2L with [employer] being the DME company. Original Note: Patient Fabiola is a 64 Year old female admitted for BL LL Edema and Cellulitis. SS met with patient at bedside, patient reports she lives at home and has an [facility] provider who is Babs Odell and is patient's surrogate decision maker [phone]. Patient reports she needs assistance completing ADL's, patient utilizes a wheelchair to assist with ambulation. Choice of pharmacy is [facility]. Patient reports her [facility] provider will provide transportation at time of discharge. next of kin: friend Babs OdellIehhe-[phone] discharge plan: Home
[2024-06-01] MEDS: BUMETANIDE INJ 0.25 MG/ML VIAL 4 ML 2 MG IVP ×2 (11:45→17:42)
[2024-06-01] MEDS: GABAPENTIN 300 MG CAPSULE 600 MG PO ×2 (11:46→18:41)
[2024-06-01] MEDS: LEVOTHYROXINE SODIUM 25 MCG TABLET 50 MCG PO (11:46)
[2024-06-01] MEDS: DULoxetine HCL 30 MG CAPSULE 60 MG PO (11:46)
[2024-06-01] MEDS: NICOTINE PATCH 21 MG/24 HR PATCH.TD24 TOP (11:55)
--- NOTE | 2024-06-01 12:09 | PC.SS ---
SS follow up note; Cultures pending and PT evaluation pending. Patient will discharge back home when medically cleared.
--- NOTE | 2024-06-01 13:22 | ESPR_ITS ---
<Statement entered by Joe Lara MD - 06/02/24 08:11> Senior Resident Attestation: I supervised/discussed management plan with international recruiter physician Dr. Ly, and was involved in the care of this patient. I personally saw and examined the patient and discussed the assessment and plan with the entire medicine team, including my attending. I agree with the assessment and plan as documented. Patient reports discomfort and cramping sensation in bilateral lower extremities. Her Lasix was changed to Bumex 2 mg IV twice daily. Will possibly discharge patient tomorrow if symptoms improved. Patient's care was discussed with attending physician, Dr. Brooks. Joe Lara MD PGY-2. Documentation for date of: 06/01/24 Subjective Subjective Interval history: Patient is seen and examined at bedside Admitted overnight. Denies any other complaints Patient is resting comfortably lying on the bed. Vitals are stable. On physical examination, patient appears fluid overloaded with bilateral 4+ pitting pedal edema extending up to the lower abdomen Started on Bumex 2 mg IV twice daily and will continue rest of her home medication Will diurese her for now. Discontinued her antibiotics as there is very minimal suspicion of cellulitis Gave her a nicotine patch Exam Vital Signs Temp Pulse Resp BP Pulse Ox O2 Del Method O2 Flow Rate 97.3 F 88 19 103/48 L 99 Humidified Nasal Cannula 2 06/01/24 07:39 06/01/24 11:45 06/01/24 12:00 06/01/24 12:00 06/01/24 12:00 06/01/24 12:00 06/01/24 12:00 Narrative Exam General: Awake. Morbidly obese HEENT: Normocephalic, atraumatic, mucous membranes moist. Heart: Regular rate and rhythm, no murmurs. Lungs: Clear to auscultation with no wheezing or crackles. Abdomen: Soft, nondistended, nontender, positive bowel sounds. ?No guarding or rebound tenderness. Neurologic: Alert and oriented x3, no gross neurological deficit, and patient able to move all 4 extremities. Extremities: Bilateral 4+ pitting pedal edema extending up to the lower abdomen. Hematoma appears to be resolving from last admission Skin: No rash or ecchymoses. Objective Labs 06/02/24 05:17 06/02/24 05:17 Labs: Laboratory Results - last 24 hr 05/31/24 05/31/24 05/31/24 23:15 23:26 23:30 WBC RBC Hgb Hct MCV MCH MCHC RDW Std Deviation Plt Count Neut % (Auto) Lymph % (Auto) [place] % (Auto) Eos % (Auto) Baso % (Auto) Neut # (Auto) Lymph # (Auto) [place] # (Auto) Eos # (Auto) Baso # (Auto) Immature Gran # (Auto) Absolute Nucleated RBC Immature Gran % Nucleated RBC % ESR PT 13.5 H INR 1.3 APTT 28.0 D-Dimer 1140 H Puncture Site ABG pH ABG pCO2 ABG pO2 ABG HCO3 ABG O2 Saturation ABG Base Excess FiO2 Sodium 137 Potassium 2.5 L* Chloride 104 Carbon Dioxide 22.6 Anion Gap 10 BUN 6 L Creatinine 0.6 Estim Creat Clear Calc 125.0 eGFR > 60 BUN/Creatinine Ratio 10 L Glucose 123 H Calculated Osmolality 272 L Lactic Acid 6.1 H* Calcium 7.6 L Corrected Calcium 8.8 Magnesium 1.4 L Total Bilirubin 0.3 Direct Bilirubin 0.2 AST 53 H ALT 17 Alkaline Phosphatase 204 H Troponin I < 0.002 C-Reactive Prot, Quant 4.1 H B-Natriuretic Peptide 43 Total Protein 5.9 Albumin 2.5 L Globulin 3.4 Albumin/Globulin Ratio 0.7 L Triglycerides Cholesterol LDL Cholesterol, Calc HDL Cholesterol Cholesterol/HDL Ratio Procalcitonin 0.25 TSH 3.99 Free T4 0.94 Ur Collection Type Clean Catch Urine Color Lt-Yellow Urine Clarity Clear Urine pH 6.0 Ur Specific [place] 1.005 Urine Protein Negative Urine Glucose (UA) Negative Urine Ketones Negative Urine Blood Trace Urine Nitrite Negative Urine Bilirubin Negative Urine Urobilinogen (Auto) Negative Ur Leukocyte Esterase Negative Urine RBC 1 Urine WBC 1 Ur Squamous Epith Cells 1 Urine Bacteria None Ur Culture Indicated? Not Indicated Urine Opiates Screen Negative Urine Fentanyl Screen Negative Ur Barbiturates Screen Negative U Amphetamin/Meth Scrn Negative U Benzodiazepines Scrn Positive A U Cocaine Metab Screen Negative U Marijuana (THC) Screen Negative RSV Rapid Negative 05/31/24 05/31/24 06/01/24 23:47 23:58 03:10 WBC 9.5 6.8 RBC 2.99 L 3.01 L Hgb 8.9 L 9.1 L Hct 29.6 L 29.9 L MCV 99 99 MCH 29.8 30.2 MCHC 30.1 L 30.4 L RDW Std Deviation 68.5 H 69.0 H Plt Count 285 D 282 Neut % (Auto) 60 86 H Lymph % (Auto) 27 9 L [place] % (Auto) 10 3 Eos % (Auto) 2 0 Baso % (Auto) 1 0 Neut # (Auto) 5.7 5.9 Lymph # (Auto) 2.5 0.6 L [place] # (Auto) 0.9 H 0.2 Eos # (Auto) 0.2 0.0 Baso # (Auto) 0.1 0.0 Immature Gran # (Auto) 0.14 H 0.15 H Absolute Nucleated RBC 0.02 H 0.00 Immature Gran % 2 H 2 H Nucleated RBC % 0 0 ESR 32 H PT INR APTT D-Dimer Puncture Site Right Radial ABG pH 7.36 ABG pCO2 45 ABG pO2 63 L ABG HCO3 25 ABG O2 Saturation 90 L ABG Base Excess -1 FiO2 21 Sodium 136 Potassium 3.8 D Chloride 103 Carbon Dioxide 22.6 Anion Gap 10 BUN 5 L Creatinine 0.6 Estim Creat Clear Calc 125.0 eGFR > 60 BUN/Creatinine Ratio 8 L Glucose 167 H Calculated Osmolality 273 L Lactic Acid 4.8 H* Calcium 7.6 L Corrected Calcium 8.7 Magnesium 1.9 Total Bilirubin 0.3 Direct Bilirubin AST 72 H ALT 23 Alkaline Phosphatase 211 H Troponin I C-Reactive Prot, Quant B-Natriuretic Peptide Total Protein 6.0 Albumin 2.6 L Globulin 3.4 Albumin/Globulin Ratio 0.8 L Triglycerides 165 H Cholesterol 81 L LDL Cholesterol, Calc 38 HDL Cholesterol < 10 L Cholesterol/HDL Ratio 8.0 H Procalcitonin TSH 2.57 Free T4 Ur Collection Type Urine Color Urine Clarity Urine pH Ur Specific [place] Urine Protein Urine Glucose (UA) Urine Ketones Urine Blood Urine Nitrite Urine Bilirubin Urine Urobilinogen (Auto) Ur Leukocyte Esterase Urine RBC Urine WBC Ur Squamous Epith Cells Urine Bacteria Ur Culture Indicated? Urine Opiates Screen Urine Fentanyl Screen Ur Barbiturates Screen U Amphetamin/Meth Scrn U Benzodiazepines Scrn U Cocaine Metab Screen U Marijuana (THC) Screen RSV Rapid ABG Interpretation ABG results: 05/31/24 23:47 ABG pH 7.36 ABG pCO2 45 ABG pO2 63 L ABG HCO3 25 ABG O2 Saturation 90 L ABG Base Excess -1 Quality Measures Quality Measures sepsis Current suspected stage: ruled out Possible source: pulmonary Blood cultures ordered: yes Antibiotic ordered: No Assessment & Plan Assessment Current Active Medications: Generic Name Dose Route Start Last Admin Trade Name Freq PRN Reason Stop Dose Admin Acetaminophen 650 mg 06/01/24 03:24 Acetaminophen 325 Mg Tablet PO 07/01/24 03:23 Q6H PRN Fever >101.5 Acetaminophen 650 mg 06/01/24 03:24 Acetaminophen 325 Mg Tablet PO 07/01/24 03:23 Q6H PRN PAIN SCALE 1-3 (mild Albuterol/Ipratropium 3 ml 06/01/24 07:00 Albuterol/Ipratropium (Duoneb) Rt Charisse 3 Ml Nebu INH 07/01/24 06:59 Q6HRRT DA Apixaban 5 mg 06/01/24 09:00 06/01/24 08:46 Apixaban 2.5 Mg Tablet PO 06/22/24 08:59 5 mg BID DA Administration Atorvastatin Calcium 20 mg 06/01/24 21:00 Atorvastatin Calcium 20 Mg Tablet PO 07/01/24 20:59 HS DA Bumetanide 2 mg 06/01/24 11:00 06/01/24 11:45 Bumetanide Inj 0.25 Mg/Ml Vial 4 Ml IVP 07/01/24 10:59 2 mg BIDD DA Administration Duloxetine HCl 60 mg 06/01/24 11:00 06/01/24 11:46 Duloxetine Hcl 30 Mg Capsule PO 07/01/24 10:59 60 mg DAILY DA Administration Gabapentin 600 mg 06/01/24 11:00 06/01/24 11:46 Gabapentin 300 Mg Capsule PO 07/01/24 10:59 600 mg Q8H DA Administration Levothyroxine Sodium 50 mcg 06/01/24 11:30 06/01/24 11:46 Levothyroxine Sodium 25 Mcg Tablet PO 07/01/24 11:29 50 mcg ACBR DA Administration Ondansetron HCl 4 mg 06/01/24 03:24 Ondansetron Inj 2 Mg/Ml Inj 2 Ml IV 07/01/24 03:23 Q6H PRN NAUSEA OR VOMITING Protocol Pregabalin 100 mg 06/01/24 14:00 Pregabalin 50 Mg Capsule PO 07/01/24 13:59 TID DA Spironolactone 50 mg 06/01/24 21:00 Spironolactone 25 Mg Tablet PO 07/01/24 20:59 HS DA Plan A 64-year-old female with significant past medical history of alcoholic liver cirrhosis, DVT on Eliquis, left fibular injury, chronic back pain, hypothyroidism, depression, left calf hematoma, bilateral osteoarthritis of knee, left tibial and fibular fracture presented to ED with chief complaint of bilateral leg pain and swelling for the past 2 weeks and admitted in the hospital for anasarca secondary to #Anasarca # Likely 2/2 cirrhosis and right heart failure from PAH and TR 2/2 COPD on 2 L oxygen -Patient is using 2 L oxygen through nasal cannula at baseline at home -Patient is recently admitted in the hospital for further left lower extremity hematoma secondary to trauma - Patient is recently seen in the outpatient clinic for lower extremity edema and her Lasix is increased from 40 Mg daily to 40 Mg twice daily and added Aldactone - Despite that patient had worsening lower extremity swelling for which patient came to the hospital - On physical examination, patient appears to have anasarca - Labs showed hemoglobin 9, albumin 2.6 - Echo done in 01/2024 showed Normal LV size, wall thickness. Estimated EF 55- 60%. At least mild to moderate PAH Mildly dilated RA. Moderate TR. Trace MR Plan - Salt and fluid restriction - Strict input and output - Started on Bumex 2 mg IV twice daily - Started on albumin 25 g IV daily - Will not give antibiotics for now as patient does not appears to have cellulitis or respiratory tract infection - Will continue oxygen 2 L which is her baseline - Will add spironolactone on discharge - Will monitor electrolytes and replete accordingly #Hypokalemia, resolved #Hypomagnesemia, resolved Patient presented with potassium of 2.5 and magnesium of 1.4 Patient received 6 g of IV magnesium sulfate and 80 mEq p.o. KCl in the ED Plan - Will monitor help her lites and replete as needed #Lactic acidosis, likely type II 2/2 #Alcoholic cirrhosis Presented with lactic acid of 6.1, but it has always been high on previous hospitalization, it further trended down to 4.8 Plan - Elevated lactate could be due to decreased clearance from the liver - Will trend lactate and continue diuresis for now #Left calf hematoma, resolving Patient has history of left calf hematoma - Continue to monitor #Chronic normocytic, normochromic anemia Noted to have anemia since many years Hemoglobin at the time of admission is 9.1 Recommended to continue with iron supplements on outpatient basis #History of unprovoked DVT, on Eliquis - Patient is diagnosed with history of unprovoked DVT 4 years ago and is using Eliquis since then - Following with Dr. Caban, vascular surgeon - Resumed her Eliquis #History of hypothyroidism TSH wnl in the last 6 months ? Home levothyroxine 50 mcg # COPD on home oxygen -Patient had a history of smoking, quit many years ago -Using 2 L oxygen at home Health maintenance: Dispo: med telemetry Diet: Cardiac diet, fluid restriction 1200 cc/day DVT prophylaxis: On Eliquis 5 Mg twice daily CODE STATUS: Full code Patient plan of care was discussed with the attending physician, Dr. Brooks and senior resident Dr. Jane Ly, PGY1 Attending Provider Attestation/Addendum I, Tracey Brooks, , attest that I was physically present for the meza portions of the service and evaluated the patient with the resident and I reviewed and discussed the case with the resident and agree with the resident's findings and plans of care as documented above Patient seen and evaluated this AM. She states she has been having LE weakness due to diuretic use at home and frequenting the bathroom. B/L LE edema appears to have improved as there is wrinkling over her shins and the dorsum of her foot. She currently has 1+ pitting edema. No suspicion for cellulitis as patient has a healing wound on left rosales with only mild erythema, no tenderness to palpation or calor. Will continue with IV diuresis. She is currently on room air. Will have PT work with patient due to complaint of weakness. Suspect lactic acidosis due to poor hepatic clearance in the setting of cirrhosis
[2024-06-01] MEDS: PREGABALIN 50 MG CAPSULE 100 MG PO ×2 (14:06→21:20)
--- NOTE | 2024-06-01 16:18 | PC.SS ---
SS follow up note; Patient would like to be followed by [facility]. PT also recommended HH. SS updated Team A.
--- NOTE | 2024-06-01 16:50 | PC.PT ---
PT eval only. Patient is xI with bed mobility and transfers. Patient is safe to stand pivot to a bedside commode with 1 staff assist for safety. RN made aware.
[2024-06-01] MEDS: ACETAMINOPHEN 325 MG TABLET 650 MG PO (17:48)
[2024-06-01] MEDS: ALBUMIN HUMAN 25% IVPB 25 GM/100 ML BTL IV (17:57)
[2024-06-01] MEDS: ALBUTEROL/IPRATROPIUM (Duoneb) RT SOL 3 ML NEBU INH (18:36)
[2024-06-01] MEDS: ATORVASTATIN CALCIUM 20 MG TABLET PO (20:20)
[2024-06-02] VITALS (9 sets, daily range): BP systolic 93–107; BP diastolic 56–69; PULSE 83–108; RESP 17–19; TEMP 36.2–36.4; O2SAT 93–98
[2024-06-02] MEDS: ALBUTEROL/IPRATROPIUM (Duoneb) RT SOL 3 ML NEBU INH ×3 (01:17→12:24)
[2024-06-02] MEDS: GABAPENTIN 300 MG CAPSULE 600 MG PO ×2 (02:38→11:26)
[2024-06-02] MEDS: LEVOTHYROXINE SODIUM 25 MCG TABLET 50 MCG PO (05:24)
[2024-06-02] MEDS: PREGABALIN 50 MG CAPSULE 100 MG PO ×2 (05:24→15:15)
[2024-06-02 06:27] LABS: Basophils % (Auto) 1 % (0-2.5); Eosinophils % (Auto) 0 % (0-10); Hematocrit 27.5 % (36.0-46.0); Immature Granulocytes % (Auto) 1 % (0-0); Immature Granulocytes Auto 0.09 Thou/mm3 (0.00-0.00); Lymphocytes # (Auto) 1.5 Thou/mm3 (1.0-4.8); Lymphocytes % (Auto) 24 % (10-50); Mean Corpuscular HGB Conc 28.4 g/dl (31.0-37.0); Mean Corpuscular Hemoglobin 29.7 pg (25.0-35.0); Mean Corpuscular Volume 105 fL (80-100); Monocytes # (Auto) 0.7 Thou/mm3 (0.0-0.8); Monocytes % (Auto) 11 % (0-12); Neutrophils % (Auto) 63 % (37-80); Nucleated Red Blood Cell # 0.02 Thou/mm3 (0.00-0.00); Nucleated Red Blood Cell % 0 /100 WBC (0); Platelet Count 254 Thou/mm3 (140-440); RDW Standard Deviation 72.3 fL (36.4-46.3); Red Blood Count 2.63 Miln/mm3 (4.00-5.20); White Blood Count 6.3 Thou/mm3 (3.6-11.0)
[2024-06-02 06:29] LABS: Hemoglobin 7.8 g/dL (12.0-16.0)
[2024-06-02 06:59] LABS: Alanine Aminotransferase 18 U/L (10-49); Albumin, Serum 2.5 gm/dL (3.4-4.8); Albumin/Globulin Ratio 0.8 (1.2-2.2); Alkaline Phosphatase 168 U/L (46-116); Anion Gap 3 (7-16); Aspartate Amino Transferase 44 U/L (0-34); BUN/Creatinine Ratio 10 Ratio (12-20); Bilirubin,Total 0.3 mg/dL (0.3-1.2); Blood Urea Nitrogen 7 mg/dL (9-23); Calcium 7.5 mg/dL (8.3-10.6); Calcium (Corrected) 8.7 mg/dL (8.5-10.1); Carbon Dioxide 35.6 mMol/L (20.0-31.0); Chloride 103 mMol/L (98-107); Creatinine (Component) 0.7 mg/dL (0.6-1.3); Estimated Creatinine Clearance 109.2 mL/min (>60); Glucose 100 mg/dL (74-106); Magnesium 1.7 mg/dL (1.6-2.6); Osmolality,Calculated 281 (275-295); Phosphorous 2.5 mg/dL (2.4-5.1); Potassium 3.5 mMol/L (3.4-5.1); Sodium 142 mMol/L (136-145); Total Protein 5.5 gm/dL (5.7-8.2); eGFR > 60 See Note
[2024-06-02] MEDS: ALBUMIN HUMAN 25% IVPB 25 GM/100 ML BTL IV (09:25)
[2024-06-02] MEDS: POTASSIUM CHLORIDE 20 mEq TABCR 40 MEQ PO (09:29)
[2024-06-02] MEDS: APIXABAN 2.5 MG TABLET 5 MG PO (09:29)
[2024-06-02] MEDS: DULoxetine HCL 30 MG CAPSULE 60 MG PO (09:29)
[2024-06-02 10:38] LABS: Lactate (Lactic Acid) 2.6 mMol/L (0.4-2.0)
[2024-06-02] MEDS: Magnesium Sulfate 2 GM Ivpb 2 GM/50 ML BAG IV (11:27)
--- NOTE | 2024-06-02 12:14 | ESDS_ITS ---
<Statement entered by Tracey Brooks DO - 06/02/24 13:14> I, Tracey Brooks DO, attest that I was physically present for the meza portions of the service and evaluated the patient with the resident and I reviewed and discussed the case with the resident and agree with the resident's findings and plans of care as documented above Planned Discharge Date 06/02/24 DS: Providers Provider Date of admission: 06/01/24 03:24 Primary care physician: Luigi Ly MD Admitting Provider: Tracey Brooks DO Attending Provider on Admission: Tracey Brooks DO Consults: 06/01/24 08:00 Referral Physical Therapy Routine Comment: Physician Instructions: Referral Respiratory Therapy Routine Comment: Referral Smoking Cessation Counseling Routine Comment: Smoking Cessation Education Needed Attending Provider on DC: Joe Lara MD Discharging Provider: Joe Lara MD DS: Diagnosis Problem List Completed Was Problem List Reviewed/Reconciled?: Yes Hospital Course Hospital Course Hospital course: The patient is a 64 years old female with PMH of alcoholic liver cirrhosis, DVT on Eliquis, hypothyroidism, depression, left calf hematoma, bilateral osteoarthritis of knees presented to ED complaining of worsening bilateral leg pain and swelling for the past 2 weeks and was admitted for management of fluid overload and possible bilateral cellulitis, started on IV antibiotics and IV Lasix. Her antibiotics were discontinued over the next day due to swelling and redness were likely from her immobilization and fluid retention. Lasix was changed to Bumex and her swelling almost resolved. Patient continues to drink alcohol daily and was counseled. She is stable for discharge today and was recommended to continue home medications as prescribed, follow up with her PCP and criminal justice social worker. Alcohol use education materials were provided. #Anasarca, improved. #Likely 2/2 cirrhosis and right heart failure from PAH and TR 2/2 COPD on 2 L oxygen. #Hypokalemia, resolved. #Hypomagnesemia, resolved. #Lactic acidosis, likely type II 2/2. #Alcoholic cirrhosis. #Left calf hematoma, resolving. #Chronic normocytic, normochromic anemia. #History of unprovoked DVT, on Eliquis. #History of hypothyroidism. #COPD on 2L home oxygen. Plan of care discussed with attending Dr. Brooks. Joe Lara MD, PGY 2. Disclaimer: This note was dictated by speech recognition. Minor errors in health occupations instructor may be present due to voice recognition software. Time Spent with Patient Time attestation: Total time spent providing and/or coordinating discharge services: Time spent: Less than 30 minutes Exam Vital Signs Temp Pulse Resp BP Pulse Ox O2 Del Method O2 Flow Rate 97.2 F 97 18 98/63 93 L Nasal Cannula 2 06/02/24 08:00 06/02/24 08:00 06/02/24 08:00 06/02/24 08:00 06/02/24 08:00 06/02/24 08:00 06/02/24 08:00 FiO2 3 06/02/24 06:38 Narrative Exam Gen: Well-developed and well-nourished obese female. HEENT: NCAT, PERRLA, EOMI, MMM, anicteric conjunctivae, poor dentition. CVS: normal S1 and S2. RRR. No M/R/G. Resp: CTA B/L. No rhonchi, rales, crackles or wheezing. Abd: soft, obese, non-tender, non-distended. BS+ in all 4 quadrants. MSK: Good ROM in BUE & BLE. 1+ pitting edema BLE with mild hyperemia. 2 cm well healing wound over her left lower leg. Neuro: CN II-XII grossly intact. Strength 5/5 in BUE & BLE. Alert and oriented x3. Psych: appropriate mood and affect. Discharge Plan Plan Patient Disposition: Home w/HOME HEALTH Patient condition on transfer: Stable Care Plan Goals: Continue home medications as prescribed. Follow up with PCP within 1 week. Discuss night time diapers to be ordered for you. Stop drinking alcohol, follow up with your criminal justice social worker. Return to the ED if symptoms recur or worsen. Prescriptions/Referrals Prescriptions/Med Rec: Continued furosemide 40 mg tablet 40 mg PO BID Qty: 60 1RF tramadol 50 mg tablet 50 mg PO Q8H MDD 150 mg PRN (Reason: pain) Qty: 14 0RF thiamine HCl (vitamin B1) 100 mg tablet 100 mg PO QDAY Qty: 30 1RF levothyroxine 50 mcg capsule 50 mcg PO AC Eliquis 5 mg tablet 5 mg PO BID Qty: 60 0RF ergocalciferol (vitamin D2) 1,250 mcg (50,000 unit) capsule 1,250 mcg PO QWEEK meloxicam 7.5 mg tablet 15 mg PO QDAY pregabalin 100 mg capsule 100 mg PO TID Qty: 90 0RF albuterol sulfate 90 mcg/actuation HFA aerosol inhaler 2 inh INHALATION Q6H PRN (Reason: wheeze) duloxetine 60 mg capsule,delayed release(DR/EC) 60 mg PO DAILY atorvastatin 20 mg tablet 20 mg PO DAILY naloxone [Narcan] 4 mg/actuation spray,non-aerosol 4 mg intranasal Q2M PRN (Reason: opioid overdose) Qty: 2 0RF Rx Instructions: spray 1 dose into ONE nostril; alternate nostrils w each dose until help arrives pantoprazole 40 mg tablet,delayed release (DR/EC) 40 mg PO DAILY gabapentin 600 mg tablet 600 mg PO Q8H spironolactone 50 mg tablet 50 mg PO Q12H Referrals: Luigi Lockhart MD [Primary Care Provider] - Patient/Caregiver Discharge Instructions Education Materials: Heart Failure Meds, Alcoholism Resources, Alcoholism: Getting Help, Alcohol Addiction Print Language: Indonesian Stand Alone Forms: Cami Award Info., Patient Portal Info Letter Discharge Order Discharge Orders: Discharge (Routine); Ordered 06/02/24 Ordered By: Joe Lara Quality Discharge Quality Measures VTE therapy
[2024-06-02 13:35] LABS: Reflex Lactate? Y
--- NOTE | 2024-06-02 14:22 | PC.CC ---
Addendum entered by Marisa Boston RN 06/02/24 17:17: Pt booked with [facility] pending soc. Addendum entered by Marisa Boston RN 06/02/24 16:53: Referral sent to [facility] per pt preference Original Note: [facility]
--- NOTE | 2024-06-04 11:39 | PC.CC ---
Resume of care date with [facility] is 06/05/2024.
== END 2024-06-02 16:23 | disposition home health service (06) ==
LOC: SERX 06-01 03:07 → SERHOLD 06-01 03:44 → S3NX 06-01 05:36
PROVIDERS: Student in an Organized Health Care Education/Training Program; Admitting Provider Internal Medicine; Emergency Provider Emergency Medicine; Visit Provider Internal Medicine
DX: E87.70 Fluid overload, unspecified (principal); L03.116 Cellulitis of left lower limb; L03.115 Cellulitis of right lower limb; J96.01 Acute respiratory failure with hypoxia; J44.1 Chronic obstructive pulmonary disease with (acute) exacerbation; J18.9 Pneumonia, unspecified organism; I48.91 Unspecified atrial fibrillation; I27.21 Secondary pulmonary arterial hypertension; I11.0 Hypertensive heart disease with heart failure; F32.A Depression, unspecified; F17.200 Nicotine dependence, unspecified, uncomplicated; E87.6 Hypokalemia; E87.20 Acidosis, unspecified; E83.42 Hypomagnesemia; E78.00 Pure hypercholesterolemia, unspecified; E66.9 Obesity, unspecified; E03.9 Hypothyroidism, unspecified; D64.9 Anemia, unspecified; K70.30 Alcoholic cirrhosis of liver without ascites; M17.0 Bilateral primary osteoarthritis of knee; M81.0 Age-related osteoporosis without current pathological fracture; K21.9 Gastro-esophageal reflux disease without esophagitis; Z86.718 Personal history of other venous thrombosis and embolism; Z79.01 Long term (current) use of anticoagulants; I50.810 Right heart failure, unspecified; G89.29 Other chronic pain; S82.402D Unspecified fracture of shaft of left fibula, subsequent encounter for closed fracture with routine healing; S82.302D Unspecified fracture of lower end of left tibia, subsequent encounter for closed fracture with routine healing; Z99.3 Dependence on wheelchair; S80.12XA Contusion of left lower leg, initial encounter; Z01.812 Encounter for preprocedural laboratory examination
CPT/HCPCS: 51701; 36415; 36600; 71045; 71275; 74177; 80053; 80061; 80307; 81001; 82248; 82803; 83605; 83735; 83880; 84100; 84145; 84439; 84443; 84484; 85025; 85379; 85610; 85652; 85730; 86140; 87040; 87081; 87400; 87634; 87811; 93005; 93306; 94640; 96365; 96366; 96375; 97161; 99291; A4649; A9270; G0378; J0696; J1171; J1938; J1956; J2270; J2405; J2919; J3475; J3490; J7120; P9047; Q9967

== ENCOUNTER 2024-06-07 22:53 | Inpatient (IN) | payer MEDICAID, SELFPAY ==
--- NOTE | 2024-06-07 23:03 | EKG_ITS ---
[facility] Test Date: 2024-06-07 Pat Name: EDUARDO SINGH Department: Room: - Gender: Female [employer]: : 1960 Requested By: Bucky Mott Order Number: [id number] Reading MD: Bucky Mott Measurements Intervals [place] Rate: 97 P: 53 SC: 186 QRS: -39 QRSD: 117 T: 56 QT: 379 QTc: 482 Interpretive Statements SINUS RHYTHM LEFT AXIS DEVIATION [QRS AXIS < -30] MINIMAL VOLTAGE CRITERIA FOR LVH, CONSIDER NORMAL VARIANT [MEETS CRITERIA IN ONE OF: R(aVL), S(V1), R(V5), R(V5/V6)+S(V1)] POSSIBLE ANTERIOR MYOCARDIAL INFARCTION , PROBABLY OLD [30 ms Q WAVE IN V3/V4, OR R < 0.2 mV IN V4] Compared to ECG 05/31/2024 23:18:42 Myocardial infarct finding now present Intraventricular conduction delay no longer present T-wave abnormality no longer present /store/S0/[id number]/ecg/[id number].pdf
[2024-06-07 23:14] VITALS: BP 108/73; PULSE 98; RESP 22; TEMP 36.6; O2SAT 97; BMI 45.6
--- NOTE | 2024-06-07 23:48 | XR_ITS ---
Examination: AP chest single view Technique: AP portable sitting chest single view Exam date and time: June 08, 2024 at 0103 hrs. Comparison May 31, 2024 Indications: Shortness of breath today. Findings: Mild prominence of ventricle Ectatic thoracic aorta Accentuation basilar bronchovascular markings. No lobar pneumonia Impression: Basilar bronchitis pattern
--- NOTE | 2024-06-07 23:49 | EDRME_ITS ---
Rapid Medical Screening Exam [facility] Arrival date/time: 06/07/24 22:53 64F with history of alcoholic liver cirrhosis and hypothyroidism presents to ED with SOB and bilateral leg pain and swelling. No improvement since recent discharge. Chief Complaint: Shortness of Breath/Dyspnea Vital signs: Vital Signs Temperature 98 F 06/07/24 23:14 Pulse Rate 98 06/07/24 23:14 Respiratory Rate 22 H 06/07/24 23:14 Blood Pressure 108/73 06/07/24 23:14 Pulse Oximetry (%) 97 06/07/24 23:14 Oxygen Delivery Method Room Air 06/07/24 23:14
[2024-06-07] MEDS: ALBUTEROL/IPRATROPIUM (Duoneb) RT SOL 3 ML NEBU INH (23:59)
[2024-06-08] VITALS (20 sets, daily range): BP systolic 92–128; BP diastolic 51–79; PULSE 85–111; RESP 16–22; TEMP 36.1–37.5; O2SAT 94–99; BMI 48.4
--- NOTE | 2024-06-08 | ECHO_ITS ---
Transthoracic Echo Report Ht (in): 64 Wt (lb): 266 Exam Location: Portable Status: Inpatient Radarman: URVASHI Guy^^^^ Indications: Procedure Performed: BP: / HR: 111 Rhythm: Sinus Technical Quality: Fair MEASUREMENTS (Male / Female) Normal Values 2D ECHO LV Diastolic Diameter PLAX 4.2 cm 4.2 - 5.9 / 3.9 - 5.3 cm LV Systolic Diameter PLAX 2.8 cm IVS Diastolic Thickness 0.9 cm 0.6 - 1.0 / 0.6 - 0.9 cm LVPW Diastolic Thickness 0.9 cm 0.6 - 1.0 / 0.6 - 0.9 cm LV Relative Wall Thickness 0.4 LVOT Diameter 1.8 cm Aortic Root Diameter 3.2 cm LA Systolic Diameter LX 2.9 cm 3.0 - 4.0 / 2.7 - 3.8 cm LA Volume Index 23.3 cm?/m? 16 - 28 cm?/m? Ascending Aorta Diameter 2.9 cm DOPPLER AV Peak Velocity 157.0 cm/s AV Peak Gradient 9.9 mmHg AV Mean Gradient 7.0 mmHg AV Velocity Time Integral 34.3 cm LVOT Peak Velocity 127.0 cm/s LVOT Peak Gradient 6.5 mmHg LVOT Velocity Time Integral 25.6 cm LVOT Cardiac Index 3008.3 cm?/min?m? AV Area Cont Eq vti 1.9 cm? AV Area Cont Eq pk 2.1 cm? MV Peak Velocity 126.0 cm/s MV Peak Gradient 6.4 mmHg MV Mean Velocity 90.4 cm/s MV Mean Gradient 4.0 mmHg MV Area PHT 4.2 cm? Mitral E Point Velocity 78.7 cm/s Mitral A Point Velocity 95.6 cm/s Mitral E to A Ratio 0.8 LV E' Lateral Velocity 16.4 cm/s Mitral E to LV E' Lateral Ratio 4.8 LV E' Septal Velocity 15.1 cm/s Mitral E to LV E' Septal Ratio 5.2 TR Peak Velocity 314.0 cm/s TR Peak Gradient 39.4 mmHg PV Peak Velocity 121.0 cm/s PV Peak Gradient 5.9 mmHg RVOT Peak Velocity 104.0 cm/s FINDINGS Left Ventricle Normal left ventricular size, wall thickness, systolic function with no obvious regional wall motion abnormalities. There is grade I diastolic dysfunction of the left ventricle (impaired relaxation pattern). The left ventricular ejection fraction is normal, estimated at 60-65%. Right Ventricle The right ventricle is normal in size and systolic function. The estimated right ventricular systolic pressure, 47 mmHg. Left Atrium The left atrium is normal by two-dimensional, color flow and Doppler imaging with no structural abnormalities, no thrombus formation present. Right Atrium The right atrium is normal by two-dimensional imaging, color flow and Doppler imaging with no structural abnormalities, no thrombus formation present. Atrial Septum The interatrial septum appears normal with no evidence of a shunt. Aorta The aorta is normal by two-dimensional, color flow and Doppler interrogation. Mitral Valve Mild mitral regurgitation. Mild mitral annular calcification. Aortic Valve Aortic valve sclerosis. Tricuspid Valve There is mild tricuspid valve regurgitation. Pulmonic Valve Trivial pulmonic valve regurgitation. Vessels The pulmonary artery appears normal. The inferior vena cava pulmonary and hepatic veins appear normal. Pericardium The pericardium is normal by two-dimensional imaging. There is no significant pericardial effusion. CONCLUSIONS indication: [place] LV appears normal with EF 60-65%. Diastolic Dysfunction I. RV appears normal with RVSP 47 mmHg. Mild MR & MAC AOV sclerosis Mild TR Abdias Parrish (Electronically Signed) Final Date: 08 June 2024 15:33
[2024-06-08 00:31] LABS: Basophils # (Auto) 0.1 Thou/mm3 (0.0-0.2); Basophils % (Auto) 1 % (0-2.5); Eosinophils # (Auto) 0.2 Thou/mm3 (0.0-0.5); Eosinophils % (Auto) 3 % (0-10); Hematocrit 33.1 % (36.0-46.0); Hemoglobin 9.6 g/dL (12.0-16.0); Immature Granulocytes % (Auto) 2 % (0-0); Lymphocytes # (Auto) 2.1 Thou/mm3 (1.0-4.8); Lymphocytes % (Auto) 31 % (10-50); Mean Corpuscular Hemoglobin 29.8 pg (25.0-35.0); Mean Corpuscular Volume 103 fL (80-100); Monocytes # (Auto) 0.8 Thou/mm3 (0.0-0.8); Monocytes % (Auto) 12 % (0-12); Neutrophils # (Auto) 3.5 Thou/mm3 (1.8-7.7); Neutrophils % (Auto) 52 % (37-80); Nucleated Red Blood Cell % 0 /100 WBC (0); Platelet Count 294 Thou/mm3 (140-440); RDW Standard Deviation 71.7 fL (36.4-46.3); Red Blood Count 3.22 Miln/mm3 (4.00-5.20); White Blood Count 6.8 Thou/mm3 (3.6-11.0)
[2024-06-08 00:59] LABS: B-Type Natriuretic Peptide 32 pg/mL (0-100)
[2024-06-08 01:01] LABS: Alanine Aminotransferase 31 U/L (10-49); Albumin/Globulin Ratio 0.9 (1.2-2.2); Alkaline Phosphatase 178 U/L (46-116); Anion Gap 9 (7-16); Aspartate Amino Transferase 68 U/L (0-34); BUN/Creatinine Ratio 10 Ratio (12-20); Bilirubin,Total 0.4 mg/dL (0.3-1.2); Blood Urea Nitrogen 6 mg/dL (9-23); Calcium 8.3 mg/dL (8.3-10.6); Calcium (Corrected) 9.1 mg/dL (8.5-10.1); Carbon Dioxide 24.3 mMol/L (20.0-31.0); Chloride 104 mMol/L (98-107); Creatinine (Component) 0.6 mg/dL (0.6-1.3); Estimated Creatinine Clearance 124.4 mL/min (>60); Globulin 3.5 gm/dL (2.3-3.5); Glucose 159 mg/dL (74-106); Magnesium 1.7 mg/dL (1.6-2.6); Osmolality,Calculated 274 (275-295); Potassium 3.1 mMol/L (3.4-5.1); Sodium 137 mMol/L (136-145); Total Protein 6.5 gm/dL (5.7-8.2); Troponin I < 0.002 ng/mL (0.0-0.045); eGFR > 60 See Note
--- NOTE | 2024-06-08 02:03 | PD.EDSOB ---
ED SOB =RME/HPI General Chief Complaint: Shortness of Breath/Dyspnea Stated Complaint: reatining water, hard to breath Arrival date/time: 06/07/24 22:53 RME / HPI RME / HPI Narrative: 06/07/24 22:53 64F with history of alcoholic liver cirrhosis and hypothyroidism presents to ED with SOB and bilateral leg pain and swelling. No improvement since recent discharge. ------ Dr. Miguel?s Main ED Evaluation: 64yo female presents to the ED for a chief complaint of shortness of breath. Patient states she has had shortness of breath since today. Patient endorses having significant BLE pain and swelling. 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 She states that she was unable to tolerate the pain and her shortness of breath persisted, so she came in for evaluation. Patient reports associated chills. She denies any fever, N/V, chest pain or any other associated symptoms. Patient states her Lasix dosage was increased yesterday, reporting she last took it yesterday morning. Related Data Home Medications ?Medication ?Instructions ?Recorded ?Confirmed albuterol sulfate 90 mcg/actuation 2 inh inhalation Q6H PRN wheeze 10/27/22 06/09/24 aerosol inhaler duloxetine 60 mg capsule,delayed 60 mg PO DAILY 10/27/22 06/09/24 release levothyroxine 50 mcg capsule 50 mcg PO AC 02/12/23 06/09/24 atorvastatin 20 mg tablet 20 mg PO DAILY 02/01/24 06/09/24 ergocalciferol (vitamin D2) 1,250 1,250 mcg PO QWEEK 05/18/24 06/09/24 mcg (50,000 unit) capsule meloxicam 7.5 mg tablet 15 mg PO QDAY 05/18/24 06/09/24 gabapentin 600 mg tablet 600 mg PO Q8H 06/01/24 06/09/24 pantoprazole 40 mg tablet,delayed 40 mg PO DAILY 06/01/24 06/09/24 release spironolactone 50 mg tablet 50 mg PO Q12H 06/01/24 06/09/24 Previous Rx's ?Medication ?Instructions ?Recorded apixaban 5 mg tablet (Eliquis) 5 mg PO BID #60 tabs 02/14/23 naloxone 4 mg/actuation nasal 4 mg intranasal Q2M PRN opioid 02/03/24 spray (Narcan) overdose #2 ea pregabalin 100 mg capsule 100 mg PO TID #90 caps 05/18/24 furosemide 40 mg tablet 40 mg PO BID #60 tabs 05/25/24 thiamine HCl (vitamin B1) 100 mg 100 mg PO QDAY #30 tabs 05/25/24 tablet tramadol 50 mg tablet 50 mg PO Q8H PRN pain #14 tabs 05/25/24 Allergies Allergy/AdvReac Type Severity Reaction Status Date / Time Penicillins Allergy Severe Anaphylaxis Verified 05/25/24 14:06 erythromycin base AdvReac Intermediate Abdominal Verified 05/25/24 14:06 Pain Review of Systems Review of Systems Systems Reviewed: All systems reviewed, normal except as documented Past Medical History Past Medical History NEUROLOGIC: Negative Neurological Disorders, Dementia or Seizures CARDIAC: Positive Cardiac Disorders, Hypercholesterolemia, Deep Vein Thrombosis and Hypertension; Negative Atrial Fibrillation, Coronary Artery Disease or Congestive Heart Failure RESPIRATORY: Positive Chronic Obstructive Pulmonary Disease (COPD), Asthma, Bronchitis, Sleep Apnea, Smoking and Tobacco Use GASTROINTESTINAL: Positive Gastrointestinal Disorders, Cirrhosis, Diverticulitis, Diverticulosis, Hiatal Hernia and Gastroesophageal Reflux Disease; Negative Celiac Disease GENITOURINARY: Negative Genitourinary Disorders or Renal Disease REPRODUCTIVE: Negative Pelvic Inflammatory Disease MUSCULOSKELETAL: Positive Musculoskeletal Disorders, Arthritis, Osteoporosis, Degenerative Disk Disease and Fractures; Negative Muscular Dystrophy or Bone Cancer ENT: Negative Cataracts ENDOCRINE: Positive Endocrine Disorders and Hypothyroidism; Negative Diabetes Mellitus Type 1 or Diabetes Mellitus Type 2 HEMATOLOGIC: Positive Anemia; Negative Sickle Cell Disease PSYCHO/SOCIAL: Positive Recreational Drug Use, Depression and Anxiety OTHER HISTORY: Positive Falls, Blood Transfusions and Chicken Pox; Negative Autoimmune Disease, Down Syndrome, Developmental Delay, Blood Transfusion Reaction, Anesthesia Reactions, Organ Transplant, MRSA, VRSA, Vancomycin-Resistant Enterococci, Clostridium Difficile or Cancer Family History FAMILY HISTORY: Positive Family Cardiac Disorders and Family Cancer Surgical History SURGICAL: Positive Abdominal Surgery, Gastric Bypass Surgery, Lumpectomy and Section; Negative Cardiac Surgery, Endocrine Surgery, Thyroidectomy, Ear Surgery, Tympanostomy Tube, Eye Surgery, Nose Surgery, Oral Surgery, Tonsillectomy, Adenoidectomy, Cochlear Implant, Corneal Transplant, Throat Surgery, Tracheostomy, Nephrectomy, Joint Replacement, Neurologic Surgery, Brain Shunt or Organ Transplant Social History SMOKING STATUS: Never smoker SUBSTANCE USE: methamphetamine ED Exam Narrative Physical exam: GENERAL APPEARANCE: alert and oriented x 4, well-developed, well-nourished, no acute distress VITALS: All vitals were reviewed and the pulse ox is 99% on room air, which is normal according to my interpretation. HEENT: Normocephalic, atraumatic; pupils equal, round, reactive to light; EOMI; mucous membranes pink, moist; oropharynx clear NECK: Supple LUNGS: CTABL; no wheezes, no rales, no rhonchi HEART: Regular rate, regular rhythm; normal S1, S2; no murmurs ABDOMEN: non distended; normal BS; soft, no tenderness, no guarding, no rebound; no masses, no organomegaly, no hernia BACK: no CVA tenderness EXTREMITIES: atraumatic; 3+ pitting edema bilaterally; erythema going from the bilateral ankles up to her groin NEUROLOGIC: awake; alert and oriented x4; cranial nerves II-XII grossly intact; no focal sensory or motor deficits PSYCHIATRIC: appropriate mood and affect SKIN: warm, dry, normal color; open wound to the dorsum of the left great toe Course Course Course Narrative: CXR is ordered for determining the etiology of shortness of breath. Quality Measures Possible source: pulmonary Blood cultures ordered: yes Antibiotic ordered: Yes Pertinent labs: 06/08/24 06/08/24 02:57 05:05 Lactic Acid 4.0 H mMol/L (0.4-2.0) Procalcitonin 0.17 ng/ml (0.0-0.49) sepsis Orders Category Date Time Status Bedside Blood Glucose NOW Care 06/08/24 02:30 Active Semi Driver Q4H START 00 Care 06/08/24 02:30 Active EKG (ED ONLY) *Do not use* NOW Care 06/07/24 23:03 Completed Insert IV NOW Care 06/08/24 02:30 Active Strict Intake and Output Routine Care 06/08/24 02:30 Ordered Urinary Catheter NOW Care 06/08/24 02:30 Active EKG (ED Only) Stat Exams 06/07/24 23:03 Draft XR chest 1V portable Stat Exams 06/07/24 23:48 Completed B-Type Natriuretic Peptide Stat Lab 06/07/24 23:48 Completed Blood Culture (Lab) Stat Lab 06/08/24 02:57 Results CBC Stat Lab 06/07/24 23:48 Completed Comprehensive Metabolic Panel Stat Lab 06/07/24 23:48 Completed Free T4 (Free Thyroxine) Stat Lab 06/08/24 02:57 Completed Lactate (Lactic Acid) Stat Lab 06/08/24 05:05 Completed Magnesium Stat Lab 06/07/24 23:48 Completed Partial Thromboplastin Time Stat Lab 06/08/24 00:05 Completed Procalcitonin Stat Lab 06/08/24 02:57 Completed Prothrombin Time with INR Stat Lab 06/08/24 00:05 Completed Troponin I Stat Lab 06/07/24 23:48 Completed Urinalysis Stat Lab 06/08/24 02:52 Completed Urine Culture Stat Lab 06/08/24 02:52 Received Albuterol/Ipratr Rt Charisse [Duoneb Rt Charisse] Med 06/07/24 23:48 Discontinued 3 ml INH X1 ONE Doxycycline Inj [Vibramycin Inj] 100 mg Med 06/08/24 02:39 Discontinued Sodium Chloride 0.9% (Pop) [NS 0.9% mini bag] 100 ml IV X1 Potassium Chloride [K-Dur] Med 06/08/24 02:28 Discontinued 40 meq PO X1 ONE metroNIDAZOLE/NS 500 MG IVPB [Flagyl 500 mg IV] Med 06/08/24 02:41 Discontinued 500 mg in 100 ml IV X1 Oxygen Delivery NOW RT 06/08/24 02:30 Active Vital Signs Vital signs: Vital Signs Temperature 98 F 06/07/24 23:14 Pulse Rate 98 06/07/24 23:14 Respiratory Rate 22 H 06/07/24 23:14 Blood Pressure 108/73 06/07/24 23:14 Pulse Oximetry (%) 97 06/07/24 23:14 Oxygen Delivery Method Room Air 06/07/24 23:14 Shortness of Breath / Dyspnea MDM Narrative MDM Narrative:: Scribe Attestation: 06/08/24 Ya Sandhu am scribing for and in the presence of Dr. Miguel. 0228: Sepsis alert initiated. Orders made at this time are congruent with ED Adult Sepsis Order List. Re-evaluation is to be completed. IVF not given due to the patient having a history of chronic fluid overload and being on large doses of Lasix. 0526: Discussed case with Dr. Clement, attending Dr. Gibson from Hospitalist service regarding admission. Discussed patients ED course, exam findings, labs, and radiology results. The Hospitalist agrees to accept the patient for admission. Patient data External records reviewed:: [facility] previous records (Per chart review, patient was admitted here on 05/31/24 for acute respiratory failure.) Clinical information provided by:: patient Social determinants that could affect healthcare access:: none Patient has the following chronic illnesses:: alcoholic liver cirrhosis, DVT on Eliquis, hypothyroidism, depression, left calf hematoma, bilateral osteoarthritis of knees How is presenting disease/condition affected by chronic disease/condition?: uneffected by Evaluation data The following diagnostics were reviewed and interpreted by me:: lab results, radiology exam(s) and EKG tracing(s) Lab and/or radiology exams considered but not ordered:: none Interpretation Summary: WBC count is normal, HnH is 9.6/33.1, Potassium is 3.1, Troponin is normal, BNP is normal, Lactic Acid is elevated at 4.0 (which is chronic), Procalcitonin is normal, UA is unremarkable, according to my interpretation. CXR shows normal cardiac silhouette, normal costophrenic angles, normal sharp diaphragmatic edge, possible bilateral lower lobe infiltrates, increased vascular markings, according to my interpretation. EKG done at 2319, NSR, rate of 97, left axis deviation, no ectopy, Q waves in lead II, lead III, and avF, QRS: 117, QTc: 433, no acute ischemia, according to my interpretation. Medications / Prescriptions Medications or Prescriptions considered but not ordered:: none Medication administrations:: Medication Administration History Acetaminophen (Acetaminophen 325 Mg Tablet) 650 mg PO Q6H PRN PRN Reason: Fever >101.5 Stop: 07/08/24 05:49 Acetaminophen (Acetaminophen 325 Mg Tablet) 650 mg PO Q6H PRN PRN Reason: PAIN SCALE 1-3 (mild Stop: 07/08/24 05:49 Albuterol/Ipratropium (Albuterol/Ipratropium (Duoneb) Rt Charisse 3 Ml Nebu) 3 ml INH Q8HRRT DA Stop: 07/08/24 06:59 Last Admin: 06/08/24 22:53 Dose: 3 ml Documented By: Admin: 06/08/24 14:22 Dose: 3 ml Documented By: Admin: 06/08/24 08:06 Dose: 3 ml Documented By: ToddV Apixaban (Apixaban 2.5 Mg Tablet) 5 mg PO BID DA Stop: 06/29/24 08:59 Last Admin: 06/08/24 20:46 Dose: 5 mg Documented By: Admin: 06/08/24 11:01 Dose: Not Given Documented By: REINA Non-Admin Reason: Patient Refused Atorvastatin Calcium (Atorvastatin Calcium 20 Mg Tablet) 20 mg PO HS DA Stop: 07/08/24 20:59 Last Admin: 06/08/24 20:54 Dose: 20 mg Documented By: DEX Bumetanide (Bumetanide Inj 0.25 Mg/Ml Vial 4 Ml) 2 mg IVP Q12HR DA Stop: 07/08/24 06:59 Last Admin: 06/08/24 20:55 Dose: 2 mg Documented By: Admin: 06/08/24 07:22 Dose: 2 mg Documented By: REINA Duloxetine HCl (Duloxetine Hcl 30 Mg Capsule) 60 mg PO QDAY DA Stop: 07/08/24 08:59 Last Admin: 06/08/24 11:01 Dose: Not Given Documented By: REINA Non-Admin Reason: Patient Refused Gabapentin (Gabapentin 300 Mg Capsule) 600 mg PO TID DA Stop: 07/08/24 06:14 Last Admin: 06/08/24 21:00 Dose: 600 mg Documented By: Admin: 06/08/24 16:37 Dose: 600 mg Documented By: Admin: 06/08/24 06:28 Dose: 600 mg Documented By: DEMARCO Hydromorphone HCl (Hydromorphone Inj 2 Mg/Ml Vial) 0.5 mg IVP Q2H PRN PRN Reason: PAIN SCALE 4-10(Mod-Sev Stop: 06/13/24 05:49 Last Admin: 06/08/24 06:35 Dose: 0.5 mg Documented By: DEMARCO Ceftriaxone Sodium/Dextrose (Rocephin/D5w 1gm Iv Premix) 1 gm in 50 mls @ 100 mls/hr IV QDAY DA Stop: 06/15/24 06:59 Last Infusion: 06/08/24 10:35 Dose: Infused Documented By: Admin: 06/08/24 08:24 Dose: 100 mls/hr Documented By: REINA Vancomycin HCl 1,500 mg/ (Sodium Chloride) 500 mls @ 200 mls/hr IV Q12H DA Stop: 06/15/24 21:59 Last Admin: 06/08/24 21:01 Dose: 200 mls/hr Documented By: DEX Levothyroxine Sodium (Levothyroxine Sodium 25 Mcg Tablet) 50 mcg PO ACBR DA Stop: 07/08/24 06:09 Last Admin: 06/08/24 06:27 Dose: 50 mcg Documented By: DEMARCO Midodrine (Midodrine 5 Mg Tablet) 10 mg PO TID DA Stop: 07/08/24 13:59 Last Admin: 06/08/24 21:00 Dose: 10 mg Documented By: Admin: 06/08/24 16:37 Dose: 10 mg Documented By: REINA Ondansetron HCl (Ondansetron Inj 2 Mg/Ml Inj 2 Ml) 4 mg IV Q6H PRN; Protocol PRN Reason: NAUSEA OR VOMITING Stop: 07/08/24 05:49 Last Admin: 06/08/24 06:36 Dose: 4 mg Documented By: Admin: 06/08/24 06:31 Dose: 4 mg Documented By: DEMARCO Pantoprazole Sodium (Pantoprazole 40 Mg Tablet) 40 mg PO QDAY DA Stop: 07/08/24 08:59 Last Admin: 06/08/24 11:01 Dose: Not Given Documented By: REINA Non-Admin Reason: Patient Refused Pharmacy Consult (Vancomycin Pharmacy To Dose 1 Each Each) 1 each IV Q24H PRN PRN Reason: RX Stop: 07/08/24 05:59 Spironolactone (Spironolactone 25 Mg Tablet) 50 mg PO BID DA Stop: 07/08/24 08:59 Last Admin: 06/08/24 20:54 Dose: 50 mg Documented By: Admin: 06/08/24 11:00 Dose: Not Given Documented By: AA Non-Admin Reason: Patient Refused Discontinued Medications Albuterol/Ipratropium (Albuterol/Ipratropium (Duoneb) Rt Charisse 3 Ml Nebu) 3 ml INH X1 ONE Stop: 06/07/24 23:49 Last Admin: 06/07/24 23:59 Dose: 3 ml Documented By: THERESA Atorvastatin Calcium (Atorvastatin Calcium 10 Mg Tablet) 20 mg PO HS DA Stop: 07/08/24 20:59 Doxycycline Hyclate 100 mg/ (Sodium Chloride) 100 mls @ 100 mls/hr IV X1 ONE Stop: 06/08/24 03:38 Last Infusion: 06/08/24 04:27 Dose: Infused Documented By: Admin: 06/08/24 03:14 Dose: 100 mls/hr Documented By: DEMARCO Metronidazole (Flagyl 500 Mg Iv) 500 mg in 100 mls @ 100 mls/hr IV X1 ONE Stop: 06/08/24 03:40 Last Infusion: 06/08/24 04:27 Dose: Infused Documented By: Admin: 06/08/24 03:12 Dose: 100 mls/hr Documented By: DEMARCO Magnesium Sulfate (Magnesium Sulfate Ivpb) 4 gm in 50 mls @ 12.5 mls/hr IV X1 ONE Stop: 06/08/24 09:58 Last Infusion: 06/08/24 10:36 Dose: Infused Documented By: Admin: 06/08/24 06:28 Dose: 12.5 mls/hr Documented By: DEMARCO Vancomycin/Sodium Chloride (Vancomycin/Ns 1 Gm Ivpb) 200 mls @ 120 mls/hr IV Q100M DA Stop: 06/08/24 09:34 Last Infusion: 06/08/24 10:36 Dose: Infused Documented By: Admin: 06/08/24 08:27 Dose: 120 mls/hr Documented By: Infusion: 06/08/24 08:09 Dose: Infused Documented By: Admin: 06/08/24 06:28 Dose: 120 mls/hr Documented By: DEMARCO Potassium Chloride (Potassium Chloride 20 Meq Tabcr) 40 meq PO X1 ONE Stop: 06/08/24 02:29 Last Admin: 06/08/24 03:12 Dose: 40 meq Documented By: DEMARCO Potassium Chloride (Potassium Chloride 20 Meq Tabcr) 40 meq PO X1 ONE Stop: 06/08/24 05:58 Last Admin: 06/08/24 06:27 Dose: 40 meq Documented By: DEMARCO see above Consultations Consultation(s) initiated? (list below): Yes Diagnosis Shortness of Breath Differential Diagnosis: other (cellulitis, sepsis, septic shock) Most likely diagnosis given after review of the tests above:: cellulitis, sepsis Admission Indicated Admission indicated?: indicated Admission Request Was there a request for admission?: Yes Admission Attestation Admission request attestation: Discussed case with [] from Hospitalist service regarding admission. Discussed patients ED course, exam findings, labs, and radiology results. The Hospitalist [agrees,declines] to accept the patient for admission. Disposition Plan Disposition Plan: Admit Critical Care Time Critical Care Time Critical Care Time: Yes Total Critical Care Time (min.): 35 Attestation: The high probability of sudden, clinically significant deterioration in the patient?s condition required the highest level of my preparedness to intervene urgently. The services I provided to this patient were to treat and/or prevent clinically significant deterioration. Services included the following: chart data review, reviewing nursing notes and/or old charts, documentation time, exchange consultant collaboration regarding findings and treatment options, medication orders and management, direct patient care, vital sign assessments and ordering, interpreting and reviewing diagnostic studies and lab tests. Aggregate critical care time includes only time during which I was engaged in work directly related to the patient?s care, as described above, whether at bedside or elsewhere in the Emergency Department. It did not include time spent performing other reported procedures or the services of residents, students, nurses or physician assistants. Discharge Plan Plan Patient Disposition: Admit Acute Care w/in Hospital Problem List Clinical Impression: Sepsis, Cellulitis
[2024-06-08 03:05] LABS: INR 1.1 (0.9-1.3); Partial Thromboplastin Time 24.7 Seconds (22.0-36.0); Prothrombin Time 11.8 Seconds (9.0-12.2)
[2024-06-08] MEDS: POTASSIUM CHLORIDE 20 mEq TABCR 40 MEQ PO ×2 (03:12→06:27)
[2024-06-08] MEDS: metroNIDAZOLE/NS 500 MG IVPB 500 MG/100 ML BAG 100 MG IV (03:12)
[2024-06-08] MEDS: DOXYCYCLINE INJ 100 MG in SODIUM CHLORIDE 0.9% (POP) 100 ML IV (03:14)
[2024-06-08 03:45] LABS: Collection Type, Urine Catheter
[2024-06-08 04:02] LABS: Free T4 (Free Thyroxine) 0.87 ng/dL (0.89-1.76); Procalcitonin 0.17 ng/ml (0.0-0.49)
[2024-06-08 04:09] LABS: Bilirubin,Urine Negative (Negative); Blood,Urine 1+ (Negative); Clarity,Urine Clear (Clear/Hazy); Color,Urine Yellow (Lt Yel-Yel); Glucose, Urine Negative (Negative); Hyaline Casts,Urine < 1 /hpf (0-1); Ketones,Urine Negative (Negative); Leukocyte Esterase,Urine Negative (Negative); Nitrite,Urine Negative (Negative); Protein,Urine Trace (Neg - Trace); RBC,Urine 1 /hpf (0-3); Specific Gravity,Urine 1.018 (1.001-1.035); Squamous Epithelial Cell,Urine 1 /hpf (0-5); WBC,Urine 1 /hpf (0-5)
--- NOTE | 2024-06-08 05:58 | PD.RESHP ---
Documentation for date of: 06/08/24 [facility] History of Present Illness History of present illness: The patient is a 64-year-old female with significant past medical history of alcoholic liver cirrhosis, unprovoked DVT on Eliquis, left fibular injury, chronic back pain, hypothyroidism, depression, left calf hematoma, bilateral osteoarthritis of knee, left tibial and fibular fracture presented to ED with chief complaint of SOB and bilateral leg pain and swelling that has been worsening for past 2 to 3 weeks. The patient was recently admitted for similar presentation 1 week ago, and was sent home 6 days ago with oral diuretics, but she reported that she was not able to take her evening dose of diuretics as she was not able to hold her knees and reach up to her medications. The patient is wheelchair-bound, and occasionally uses oxygen 2 L at night. She also admitted mild increasing SOB, and requiring continuous increase in oxygen for past couple of days. She reported mild nausea, but denied any fever or chills, vomiting, any abdominal pain, chest pain or any changes in bowel or bladder habit. In the ED her vitals were significant for blood pressure of 108/73, RR 22, pulse 97 saturating 96% 2 L NC. CBC revealed hemoglobin 9.6, MCV 103, potassium 3.1, blood sugar 159, lactic acid 4.0, magnesium 1.7, AST 68, ALP 178, Pro-Jcarlos 0.17, UA negative. CXR revealed mild vascular congestions. PMH: As mentioned above SHX: Cholecystectomy, appendectomy, 2 sections, gastric bypass Social history: Denies alcohol, smoking or any illicit drug abuse Allergy: Penicillin, azithromycin and Ativan Medications: To be reconciled The patient received doxycycline and metronidazole IV x 1 in the ED. Patient was admitted to [facility] telemetry unit for further management of bilateral lower extremity cellulitis. Review of Systems Review of Systems Systems Reviewed: All systems reviewed, normal except as documented Exam Vital Signs Temp Pulse Resp BP Pulse Ox O2 Del Method O2 Flow Rate 99.3 F 110 H 22 H 119/69 96 Nasal Cannula 2 06/08/24 05:55 06/08/24 05:55 06/08/24 05:55 06/08/24 05:55 06/08/24 05:55 06/08/24 05:55 06/08/24 05:55 Narrative Exam General: Morbidly obese woman, cooperative, no acute distress, Alert and Oriented x 3 HEENT: Moist mucous membranes, oropharynx clear Neck: Supple, No masses, No JVD CVS: Tachycardic, No murmurs, rubs or gallops Lungs: Mild bibasilar crackles, no wheeze or rhonchi appreciated Abd: Soft, NT/ND, +BS, no organomegaly Ext: 2-3+ bilateral lower limb edema and anasarca, difficult to palpate peripheral pulses due to edema Skin: Erythema over bilateral lower limb extending from ankle to upper thigh, and hematoma over left calf Psych: Appropriate mood and affect Results: Labs 06/08/24 00:05 06/08/24 00:05 Labs: Short CBC 06/08/24 Range/Units 00:05 WBC 6.8 (3.6-11.0) Thou/mm3 Hgb 9.6 L D (12.0-16.0) g/dL Hct 33.1 L (36.0-46.0) % Plt Count 294 D (140-440) Thou/mm3 BMP 06/08/24 00:05 Sodium 137 Potassium 3.1 L Chloride 104 Carbon Dioxide 24.3 BUN 6 L Creatinine 0.6 Glucose 159 H Calcium 8.3 Cardiac Enzymes 06/08/24 Range/Units 00:05 Troponin I < 0.002 (0.0-0.045) ng/mL Liver Function 06/08/24 Range/Units 00:05 Total Bilirubin 0.4 (0.3-1.2) mg/dL AST 68 H (0-34) U/L ALT 31 (10-49) U/L Alkaline Phosphatase 178 H (46-116) U/L Albumin 3.0 L (3.4-4.8) gm/dL Urine 06/08/24 Range/Units 02:52 Urine Color Yellow (Lt Yel-Yel) Urine Clarity Clear (Clear/Hazy) Urine pH 6.0 (5.0-7.0) Ur Specific [place] 1.018 (1.001-1.035) Urine Protein Trace (Neg - Trace) Urine Glucose (UA) Negative (Negative) Quality Measures Quality Measures sepsis Current suspected stage: ruled out (qSOFA criteria 1/3 with tachypnea only) Possible source: skin/soft tissue Blood cultures ordered: yes Antibiotic ordered: Yes Medications Home Medications and Allergies Home Medications ?Medication ?Instructions ?Recorded ?Confirmed ?Type albuterol sulfate 90 mcg/actuation 2 inh inhalation Q6H PRN wheeze 10/27/22 06/01/24 History aerosol inhaler duloxetine 60 mg capsule,delayed 60 mg PO DAILY 10/27/22 06/01/24 History release levothyroxine 50 mcg capsule 50 mcg PO AC 02/12/23 06/01/24 History atorvastatin 20 mg tablet 20 mg PO DAILY 02/01/24 06/01/24 History ergocalciferol (vitamin D2) 1,250 1,250 mcg PO QWEEK 05/18/24 06/01/24 History mcg (50,000 unit) capsule meloxicam 7.5 mg tablet 15 mg PO QDAY 05/18/24 06/01/24 History gabapentin 600 mg tablet 600 mg PO Q8H 06/01/24 06/01/24 History pantoprazole 40 mg tablet,delayed 40 mg PO DAILY 06/01/24 06/01/24 History release spironolactone 50 mg tablet 50 mg PO Q12H 06/01/24 06/01/24 History Allergies Allergy/AdvReac Type Severity Reaction Status Date / Time Penicillins Allergy Severe Anaphylaxis Verified 05/25/24 14:06 erythromycin base AdvReac Intermediate Abdominal Verified 05/25/24 14:06 Pain Visit Medications Acetaminophen (Acetaminophen 325 Mg Tablet) 650 mg PO Q6H PRN PRN Reason: Fever >101.5 Stop: 07/08/24 05:49 Acetaminophen (Acetaminophen 325 Mg Tablet) 650 mg PO Q6H PRN PRN Reason: PAIN SCALE 1-3 (mild Stop: 07/08/24 05:49 Bumetanide (Bumetanide Inj 0.25 Mg/Ml Vial 4 Ml) 2 mg IVP Q12H ONE Stop: 06/08/24 05:57 Hydromorphone HCl (Hydromorphone Inj 2 Mg/Ml Vial) 0.5 mg IVP Q2H PRN PRN Reason: PAIN SCALE 4-10(Mod-Sev Stop: 06/13/24 05:49 Ceftriaxone Sodium/Dextrose (Rocephin/D5w 1gm Iv Premix) 50 mls @ 100 mls/hr IV Q24H DA Stop: 06/15/24 05:59 Ondansetron HCl (Ondansetron Inj 2 Mg/Ml Inj 2 Ml) 4 mg IV Q6H PRN; Protocol PRN Reason: NAUSEA OR VOMITING Stop: 07/08/24 05:49 Pharmacy Consult (Vancomycin Pharmacy To Dose 1 Each Each) 1 each IV Q24H DA Stop: 07/08/24 05:59 Potassium Chloride (Potassium Chloride 20 Meq Tabcr) 40 meq PO X1 ONE Stop: 06/08/24 05:58 Spironolactone (Spironolactone 25 Mg Tablet) 50 mg PO BID DA Stop: 07/08/24 08:59 Discontinued Medications Albuterol/Ipratropium (Albuterol/Ipratropium (Duoneb) Rt Charisse 3 Ml Nebu) 3 ml INH X1 ONE Stop: 06/07/24 23:49 Last Admin: 06/07/24 23:59 Dose: 3 ml Doxycycline Hyclate 100 mg/ (Sodium Chloride) 100 mls @ 100 mls/hr IV X1 ONE Stop: 06/08/24 03:38 Last Infusion: 06/08/24 04:27 Dose: Infused Metronidazole (Flagyl 500 Mg Iv) 500 mg in 100 mls @ 100 mls/hr IV X1 ONE Stop: 06/08/24 03:40 Last Infusion: 06/08/24 04:27 Dose: Infused Potassium Chloride (Potassium Chloride 20 Meq Tabcr) 40 meq PO X1 ONE Stop: 06/08/24 02:29 Last Admin: 06/08/24 03:12 Dose: 40 meq Assessment & Plan Plan The patient is a 64-year-old female with significant past medical history of alcoholic liver cirrhosis, DVT on Eliquis, left fibular injury, chronic back pain, hypothyroidism, depression, left calf hematoma, bilateral osteoarthritis of knee, left tibial and fibular fracture presented to ED with chief complaint of worsening SOB and bilateral leg pain and swelling for the past 2-3 weeks. The patient is admitted to [facility] telemetry unit for further management of bilateral lower extremity cellulitis and volume overload. #Bilateral lower extremity cellulitis #Anasarca #Alcoholic cirrhosis Likely secondary to volume overload in the setting of cirrhosis Patient met 2/4 SIRS criteria with tachycardia and tachypnea, but qSOFA criteria was only 1/3, significant for low suspicion of sepsis. Patient has been noncompliant to evening dose of Lasix -Started on Bumex 2 mg IV twice daily - On Aldactone 50 Mg twice daily - On IV ceftriaxone and vancomycin for cellulitis - Strict ins and outs - Fluid restriction to 1200 cc daily - Blood and urine culture ordered - Low-sodium diet - Daily a.m. lab for CBC and CMP #Acute on chronic hypoxic respiratory failure 2/2 #Pulmonary arterial hypertension Patient reported worsening of SOB, and increasing oxygen requirement, was requiring up to 4 L of oxygen in the ED TTE done on January 2024 revealed RVSP of 50, and LVEF 55% - Oxygen as needed - DuoNeb every 8 hourly - May consider TTE to compare RVSP from the previous one. #Hypokalemia Patient presented with potassium of 3.1 Patient received 40 mEq p.o. KCl in the ED - Further repleted with 40 mEq of p.o. KCl - ordered 4 g of IV magnesium sulfate - Daily a.m. labs for potassium and magnesium, replete as needed #Lactic acidosis, likely type II 2/2 #Alcoholic cirrhosis Presented with lactic acid of 4.0, but it has always been high on previous hospitalization - Continue to manage with IV diuretics, and Aldactone - Daily a.m. labs for CMP and electrolytes #Left calf hematoma Patient has history of left calf hematoma after being stopped on toilet pappas a long time ago - Continue to monitor #History of unprovoked DVT - Continue on Eliquis 5 Mg twice daily #Medications noncompliance - Consider discharging to SNF after improvement of cellulitis; until patient is ambulatory and is able to take her medications on her own. Health maintenance: Dispo: Patient admitted to [facility] telemetry unit for further management of bilateral lower limb cellulitis complicated by cirrhosis Diet: Cardiac diet, fluid restriction 1200 cc/day DVT prophylaxis: On Eliquis 5 Mg twice daily CODE STATUS: Full code The patient's management plan was discussed with my attending physician MD Caleb Nuñez MD, PGY2 Attending Provider Attestation/Addendum I attest that I was physically present for the evaluation, physical examination, lab and imaging review of the patient with the residents. I discussed the case with the residents and agree with the findings and plans of care as documented above. Patient is a 64 years old female with past medical history of alcoholic liver cirrhosis, DVT on Eliquis, chronic back pain, hypothyroidism, depression, left calf hematoma, bilateral osteoarthritis who presented to the ED with complaint of shortness of breath and bilateral leg pain and swelling. Patient was recently discharged on 06/02/2024 after being managed for similar symptoms. Patient was discharged on diuretics but she has not been able to take them regularly specially at the evening as they will make her to go to the restroom frequently. In the ED, she was found to be tachypneic, saturating well on 2 L nasal cannula. Lab results show hemoglobin of 9.6, potassium 3.1, lactic acid 4.0, magnesium 1.7, AST 68, ALP 178. Chest x-ray was done, shows vascular congestion. Her bilateral lower extremity has 3+ edema, warm to touch and erythematous. We will admit the patient for bilateral lower extremity cellulitis, volume overload, acute on chronic hypoxic respiratory failure. Started on IV antibiotics, aggressive diuresis, fluid restriction. We will obtain culture results. Electrolytes were repleted accordingly. Ez Gibson MD
[2024-06-08] MEDS: LEVOTHYROXINE SODIUM 25 MCG TABLET 50 MCG PO (06:27)
[2024-06-08] MEDS: Magnesium Sulfate 4 GM Ivpb 4 GM/50 ML BAG IV (06:28)
[2024-06-08] MEDS: VANCOMYCIN/NS 1 GM IVPB 200 ML IV ×2 (06:28→08:27)
[2024-06-08] MEDS: GABAPENTIN 300 MG CAPSULE 600 MG PO ×3 (06:28→21:00)
[2024-06-08] MEDS: ONDANSETRON INJ 2 MG/ML INJ 2 ML 4 MG IV ×2 (06:31→06:36)
[2024-06-08] MEDS: HYDROmorphone INJ 2 MG/ML VIAL 0.5 MG IVP (06:35)
[2024-06-08] MEDS: BUMETANIDE INJ 0.25 MG/ML VIAL 4 ML 2 MG IVP ×2 (07:22→20:55)
[2024-06-08] MEDS: ALBUTEROL/IPRATROPIUM (Duoneb) RT SOL 3 ML NEBU INH ×3 (08:06→22:53)
[2024-06-08 08:11] LABS: Reflex Lactate? Y
[2024-06-08] MEDS: cefTRIAXone/D5w 1gm IV premix 1 GM/50 ML BAG IV (08:24)
[2024-06-08 09:26] LABS: Lactic Acid, 3 HR 3.2 mMol/L (0.4-2.0)
[2024-06-08] MEDS: MIDODRINE 5 MG TABLET 10 MG PO ×2 (16:37→21:00)
--- NOTE | 2024-06-08 17:50 | ESPR_ITS ---
<Statement entered by Von Bryant MD - 06/13/24 09:31> I reviewed above note and agree with findings and plans. I have also personally examined the patient with medicine team and went over assessment and plan with medical team including manager internal and resident physician. <Statement entered by Francesco Calderon MD - 06/10/24 10:12> Patient seen and assessed at bedside. Patient admitted overnight. Patient will continue on diuresis due to anasarca. Patient has multiple admissions for same condition, may benefit from SNF placement. Case discussed with team. Francesco Calderon MD PGY3 Documentation for date of: 06/08/24 Subjective Subjective Interval history: Pt is an overnight admit. pt is seen and examined at bedside in the ED. Pt states she missed her lasix, sometime she non compliant because she is unable to reach her evening dose when she doesn't have a care aid or sometimes she knowingly doesn't take the medication because it makes her go to the bathroom several times. Pt's mobility is limited due to edema of lower extremities and and left foot drop for which is she seeing ortho. pt denies SOB, chest pain or palpitations. she complains of pain in lower extremities. will diurese the pt and continue to monitor labs. Exam Vital Signs Temp Pulse Resp BP Pulse Ox O2 Del Method O2 Flow Rate 99.2 F 100 22 H 112/51 L 95 Nasal Cannula 4 06/08/24 16:09 06/08/24 16:37 06/08/24 16:09 06/08/24 16:37 06/08/24 16:09 06/08/24 16:09 06/08/24 16:09 Narrative Exam General: Morbidly obese woman, cooperative, no acute distress, Alert and Oriented x 3 HEENT: Moist mucous membranes, oropharynx clear Neck: Supple, No masses, No JVD CVS: Tachycardic, No murmurs, rubs or gallops Lungs: Mild bibasilar crackles, no wheeze or rhonchi appreciated Abd: Soft, NT/ND, +BS, no organomegaly Ext: 3+ bilateral lower limb edema and anasarca, difficult to palpate peripheral pulses due to edema Skin: Erythema over bilateral lower limb extending from ankle to upper thigh, and hematoma over left calf Objective Labs 06/08/24 00:05 04/25/25 00:05 Labs: Laboratory Results - last 24 hr 06/08/24 06/08/24 06/08/24 00:05 02:52 02:57 WBC 6.8 RBC 3.22 L Hgb 9.6 L D Hct 33.1 L MCV 103 H MCH 29.8 MCHC 29.0 L RDW Std Deviation 71.7 H Plt Count 294 D Neut % (Auto) 52 Lymph % (Auto) 31 [place] % (Auto) 12 Eos % (Auto) 3 Baso % (Auto) 1 Neut # (Auto) 3.5 Lymph # (Auto) 2.1 [place] # (Auto) 0.8 Eos # (Auto) 0.2 Baso # (Auto) 0.1 Immature Gran # (Auto) 0.10 H Absolute Nucleated RBC 0.00 Immature Gran % 2 H Nucleated RBC % 0 PT 11.8 INR 1.1 APTT 24.7 Sodium 137 Potassium 3.1 L Chloride 104 Carbon Dioxide 24.3 Anion Gap 9 BUN 6 L Creatinine 0.6 Estim Creat Clear Calc 124.4 eGFR > 60 BUN/Creatinine Ratio 10 L Glucose 159 H Calculated Osmolality 274 L Lactic Acid Calcium 8.3 Corrected Calcium 9.1 Magnesium 1.7 Total Bilirubin 0.4 AST 68 H ALT 31 Alkaline Phosphatase 178 H Troponin I < 0.002 B-Natriuretic Peptide 32 Total Protein 6.5 Albumin 3.0 L Globulin 3.5 Albumin/Globulin Ratio 0.9 L Procalcitonin 0.17 Free T4 0.87 L Ur Collection Type Catheter Urine Color Yellow Urine Clarity Clear Urine pH 6.0 Ur Specific [place] 1.018 Urine Protein Trace Urine Glucose (UA) Negative Urine Ketones Negative Urine Blood 1+ A Urine Nitrite Negative Urine Bilirubin Negative Urine Urobilinogen (Auto) 2.0 Ur Leukocyte Esterase Negative Urine RBC 1 Urine WBC 1 Ur Squamous Epith Cells 1 Urine Bacteria None Hyaline Casts < 1 06/08/24 06/08/24 05:05 09:20 WBC RBC Hgb Hct MCV MCH MCHC RDW Std Deviation Plt Count Neut % (Auto) Lymph % (Auto) [place] % (Auto) Eos % (Auto) Baso % (Auto) Neut # (Auto) Lymph # (Auto) [place] # (Auto) Eos # (Auto) Baso # (Auto) Immature Gran # (Auto) Absolute Nucleated RBC Immature Gran % Nucleated RBC % PT INR APTT Sodium Potassium Chloride Carbon Dioxide Anion Gap BUN Creatinine Estim Creat Clear Calc eGFR BUN/Creatinine Ratio Glucose Calculated Osmolality Lactic Acid 4.0 H 3.2 H Calcium Corrected Calcium Magnesium Total Bilirubin AST ALT Alkaline Phosphatase Troponin I B-Natriuretic Peptide Total Protein Albumin Globulin Albumin/Globulin Ratio Procalcitonin Free T4 Ur Collection Type Urine Color Urine Clarity Urine pH Ur Specific [place] Urine Protein Urine Glucose (UA) Urine Ketones Urine Blood Urine Nitrite Urine Bilirubin Urine Urobilinogen (Auto) Ur Leukocyte Esterase Urine RBC Urine WBC Ur Squamous Epith Cells Urine Bacteria Hyaline Casts Quality Measures Quality Measures sepsis Current suspected stage: ruled out Possible source: skin/soft tissue Blood cultures ordered: yes Antibiotic ordered: Yes Assessment & Plan Assessment Current Active Medications: Generic Name Dose Route Start Last Admin Trade Name Freq PRN Reason Stop Dose Admin Acetaminophen 650 mg 06/08/24 05:50 Acetaminophen 325 Mg Tablet PO 07/08/24 05:49 Q6H PRN Fever >101.5 Acetaminophen 650 mg 06/08/24 05:50 Acetaminophen 325 Mg Tablet PO 07/08/24 05:49 Q6H PRN PAIN SCALE 1-3 (mild Albuterol/Ipratropium 3 ml 06/08/24 07:00 06/08/24 14:22 Albuterol/Ipratropium (Duoneb) Rt Charisse 3 Ml Nebu INH 07/08/24 06:59 3 ml Q8HRRT DA Administration Apixaban 5 mg 06/08/24 09:00 06/08/24 11:01 Apixaban 2.5 Mg Tablet PO 06/29/24 08:59 Not Given BID DA Atorvastatin Calcium 20 mg 06/08/24 21:00 Atorvastatin Calcium 20 Mg Tablet PO 07/08/24 20:59 HS DA Bumetanide 2 mg 06/08/24 07:00 06/08/24 07:22 Bumetanide Inj 0.25 Mg/Ml Vial 4 Ml IVP 07/08/24 06:59 2 mg Q12HR DA Administration Duloxetine HCl 60 mg 06/08/24 09:00 06/08/24 11:01 Duloxetine Hcl 30 Mg Capsule PO 07/08/24 08:59 Not Given QDAY DA Gabapentin 600 mg 06/08/24 06:15 06/08/24 16:37 Gabapentin 300 Mg Capsule PO 07/08/24 06:14 600 mg TID DA Administration Hydromorphone HCl 0.5 mg 06/08/24 05:50 06/08/24 06:35 Hydromorphone Inj 2 Mg/Ml Vial IVP 06/13/24 05:49 0.5 mg Q2H PRN Administration PAIN SCALE 4-10(Mod-Sev Ceftriaxone Sodium/Dextrose 1 gm in 50 mls @ 100 mls/hr 06/08/24 07:00 06/08/24 10:35 Rocephin/D5w 1gm Iv Premix IV 06/15/24 06:59 Infused QDAY DA Infusion Vancomycin HCl 1,500 mg/ 500 mls @ 200 mls/hr 06/08/24 22:00 Sodium Chloride IV 06/15/24 21:59 Q12H DA Levothyroxine Sodium 50 mcg 06/08/24 06:10 06/08/24 06:27 Levothyroxine Sodium 25 Mcg Tablet PO 07/08/24 06:09 50 mcg ACBR DA Administration Midodrine 10 mg 06/08/24 14:00 06/08/24 16:37 Midodrine 5 Mg Tablet PO 07/08/24 13:59 10 mg TID DA Administration Ondansetron HCl 4 mg 06/08/24 05:50 06/08/24 06:36 Ondansetron Inj 2 Mg/Ml Inj 2 Ml IV 07/08/24 05:49 4 mg Q6H PRN Administration NAUSEA OR VOMITING Protocol Pantoprazole Sodium 40 mg 06/08/24 09:00 06/08/24 11:01 Pantoprazole 40 Mg Tablet PO 07/08/24 08:59 Not Given QDAY [facility] Pharmacy Consult 1 each 06/08/24 06:00 Vancomycin Pharmacy To Dose 1 Each Each IV 07/08/24 05:59 Q24H PRN RX Spironolactone 50 mg 06/08/24 09:00 06/08/24 11:00 Spironolactone 25 Mg Tablet PO 07/08/24 08:59 Not Given BID DA Plan Ms. Caban is a 64-year-old female with significant past medical history of alcoholic liver cirrhosis, DVT on Eliquis, left fibular injury, chronic back pain, hypothyroidism, depression, left calf hematoma, bilateral osteoarthritis of knee, left tibial and fibular fracture presented to ED with chief complaint of worsening SOB and bilateral leg pain and swelling for the past 2-3 weeks. The patient is admitted to med telemetry unit for further management of bilateral lower extremity cellulitis and volume overload. #Anasarca #Likely 2/2 cirrhosis and component of right heart failure from PAH and TR 2/2 #medication non compliance #COPD on 2 L oxygen #lactic acidosis -Likely secondary to volume overload in the setting of cirrhosis -Patient met 2/4 SIRS criteria with tachycardia and tachypnea, but qSOFA criteria was only 1/3, significant for low suspicion of sepsis. -Patient has been noncompliant to evening dose of Lasix -lactic acid of 4.0 -Pt admits to not taking medications either she is unable to reach it or she is bothered by having to go to the bathroom often Plan: -Started on Bumex 2 mg IV twice daily - On Aldactone 50 Mg twice daily - On IV ceftriaxone and vancomycin for cellulitis - Strict ins and outs - Fluid restriction to 1200 cc daily - Blood and urine culture ordered - Low-sodium diet -Will continue Midodrine and bumex -Goal is Net negative 2-3 L - Daily a.m. lab for CBC and CMP #Acute on chronic hypoxic respiratory failure 2/2 #Pulmonary arterial hypertension Patient reported worsening of SOB, and increasing oxygen requirement, was requiring up to 4 L of oxygen in the ED TTE done on January 2024 revealed RVSP of 50, and LVEF 55% - Oxygen as needed - DuoNeb every 8 hourly - May consider TTE to compare RVSP from the previous one. #Hypokalemia Patient presented with potassium of 3.1 Patient received 40 mEq p.o. KCl in the ED - Further repleted with 40 mEq of p.o. KCl - ordered 4 g of IV magnesium sulfate - Daily a.m. labs for potassium and magnesium, replete as needed #Hx of Left calf hematoma Patient has history of left calf hematoma after being stopped on toilet pappas a long time ago - Continue to monitor #History of unprovoked DVT - Continue home Eliquis 5 Mg twice daily #Medications noncompliance - Consider discharging to SNF after improvement of cellulitis; until patient is ambulatory and is able to take her medications on her own. Health maintenance: Dispo: Patient admitted to med telemetry unit for further management of bilateral lower limb cellulitis complicated by cirrhosis Diet: Cardiac diet, fluid restriction 1200 cc/day DVT prophylaxis: On Eliquis 5 Mg twice daily CODE STATUS: Full code Assessment and plan discussed with my senior resident Dr. Calderon & attending physician Dr. Manny Fabian (PGY-1)- Internal medicine resident
--- NOTE | 2024-06-08 18:10 | PC.NURSE ---
Report given to Karolina RN, patient will transfer to room 355
[2024-06-08] MEDS: APIXABAN 2.5 MG TABLET 5 MG PO (20:46)
[2024-06-08] MEDS: ATORVASTATIN CALCIUM 20 MG TABLET PO (20:54)
[2024-06-08] MEDS: SPIRONOLACTONE 25 MG TABLET 50 MG PO (20:54)
[2024-06-08] MEDS: Vancomycin Inj 1,500 MG in SODIUM CHLORIDE 0.9% 500 ML 500 ML 200 MG IV (21:01)
[2024-06-09] VITALS (16 sets, daily range): BP systolic 91–129; BP diastolic 64–80; PULSE 86–102; RESP 18–20; TEMP 36.2–37.1; O2SAT 93–100
[2024-06-09] MEDS: LEVOTHYROXINE SODIUM 25 MCG TABLET 50 MCG PO (05:15)
[2024-06-09] MEDS: GABAPENTIN 300 MG CAPSULE 600 MG PO ×3 (05:15→21:21)
[2024-06-09] MEDS: MIDODRINE 5 MG TABLET 10 MG PO ×3 (05:15→21:28)
[2024-06-09 06:35] LABS: Basophils # (Auto) 0.1 Thou/mm3 (0.0-0.2); Basophils % (Auto) 1 % (0-2.5); Eosinophils # (Auto) 0.1 Thou/mm3 (0.0-0.5); Eosinophils % (Auto) 2 % (0-10); Hematocrit 28.3 % (36.0-46.0); Immature Granulocytes % (Auto) 1 % (0-0); Immature Granulocytes Auto 0.06 Thou/mm3 (0.00-0.00); Lymphocytes # (Auto) 1.5 Thou/mm3 (1.0-4.8); Lymphocytes % (Auto) 23 % (10-50); Mean Corpuscular HGB Conc 28.6 g/dl (31.0-37.0); Mean Corpuscular Hemoglobin 30.2 pg (25.0-35.0); Mean Corpuscular Volume 106 fL (80-100); Monocytes # (Auto) 0.8 Thou/mm3 (0.0-0.8); Monocytes % (Auto) 12 % (0-12); Neutrophils % (Auto) 61 % (37-80); Nucleated Red Blood Cell % 0 /100 WBC (0); Platelet Count 232 Thou/mm3 (140-440); RDW Standard Deviation 72.7 fL (36.4-46.3); Red Blood Count 2.68 Miln/mm3 (4.00-5.20); White Blood Count 6.6 Thou/mm3 (3.6-11.0)
[2024-06-09 06:45] LABS: Alanine Aminotransferase 26 U/L (10-49); Albumin, Serum 2.6 gm/dL (3.4-4.8); Albumin/Globulin Ratio 0.9 (1.2-2.2); Alkaline Phosphatase 151 U/L (46-116); Anion Gap 6 (7-16); Aspartate Amino Transferase 55 U/L (0-34); BUN/Creatinine Ratio 13 Ratio (12-20); Bilirubin,Total 0.7 mg/dL (0.3-1.2); Blood Urea Nitrogen 8 mg/dL (9-23); Calcium 7.8 mg/dL (8.3-10.6); Calcium (Corrected) 8.9 mg/dL (8.5-10.1); Carbon Dioxide 32.3 mMol/L (20.0-31.0); Chloride 100 mMol/L (98-107); Creatinine (Component) 0.6 mg/dL (0.6-1.3); Glucose 157 mg/dL (74-106); Magnesium 1.6 mg/dL (1.6-2.6); Osmolality,Calculated 276 (275-295); Phosphorous 2.5 mg/dL (2.4-5.1); Potassium 3.8 mMol/L (3.4-5.1); Sodium 138 mMol/L (136-145); Total Protein 5.6 gm/dL (5.7-8.2); eGFR > 60 See Note
[2024-06-09] MEDS: ALBUTEROL/IPRATROPIUM (Duoneb) RT SOL 3 ML NEBU INH ×3 (06:58→23:29)
[2024-06-09 07:00] LABS: Hemoglobin 8.1 g/dL (12.0-16.0)
[2024-06-09] MEDS: PANTOPRAZOLE 40 MG TABLET PO (09:27)
[2024-06-09] MEDS: SPIRONOLACTONE 25 MG TABLET 50 MG PO ×2 (09:27→21:20)
[2024-06-09] MEDS: APIXABAN 2.5 MG TABLET 5 MG PO ×2 (09:28→21:21)
[2024-06-09] MEDS: BUMETANIDE INJ 0.25 MG/ML VIAL 4 ML 2 MG IVP ×2 (09:28→21:23)
[2024-06-09] MEDS: cefTRIAXone/D5w 1gm IV premix 1 GM/50 ML BAG IV (09:29)
[2024-06-09] MEDS: DULoxetine HCL 30 MG CAPSULE 60 MG PO (09:45)
--- NOTE | 2024-06-09 10:02 | PC.SS ---
Patient Fabiola is a 64 Year old female admitted for BL LL CELLULITIS.. SS met with patient at bedside, patient reports she lives at home and has an [facility] provider who is Babs Odell and is patient's surrogate decision maker [phone]. Patient reports she needs assistance completing ADL's, patient utilizes a wheelchair to assist with ambulation. Choice of pharmacy is [facility]. SS inquired about discharging to SNF, however patient does not want SNF. Patient reports her [facility] provider will provide transportation at time of discharge. next of kin: friend Babs [phone] discharge plan: Home
[2024-06-09] MEDS: Vancomycin Inj 1,500 MG in SODIUM CHLORIDE 0.9% 500 ML 500 ML 200 MG IV ×2 (10:48→22:34)
--- NOTE | 2024-06-09 11:56 | PC.SS ---
SS follow up note; Patient refusing SNF, Patient is established with [facility] and would like to be continued to be followed by [facility]. SS notified Dr. Fabian.
[2024-06-09] MEDS: POTASSIUM CHLORIDE 20 mEq TABCR PO (13:52)
--- NOTE | 2024-06-09 15:28 | ESPR_ITS ---
<Statement entered by Von Bryant MD - 06/13/24 12:10> I reviewed above note and agree with findings and plans. I have also personally examined the patient with medicine team and went over assessment and plan with medical team including supply chain intern and resident physician. <Statement entered by Joe Lara MD - 06/11/24 09:18> Senior Resident Attestation: I supervised/discussed management plan with supply chain intern physician Dr. Ly, and was involved in the care of this patient. I personally saw and examined the patient and discussed the assessment and plan with the entire medicine team, including my attending. I agree with the assessment and plan as documented. Patient's care was discussed with attending physician, Dr. Bryant. Joe Lara MD PGY-2. Documentation for date of: 06/09/24 Subjective Subjective Interval history: No acute overnight events reported. Patient seen and examined at bedside this morning. Patient's blood pressure is 92/64, currently saturating above 92% on 3 L oxygen. Patient is net negative of 3450. Goal is net -2.5 liters daily. Patient denies any chest pain, palpitation or pressure patient endorses to improvement on her shortness of breath. Patient is very emotional regarding her current health and wishes to ambulate around her home and states that she is unable to commit to going to SNF because if she stays anywhere for more than 30 days she would lose her apartment as well as she has a dog that she has no one that she can take care of her dog. Patient would rather be discharged home with home health and has a caregiver that comes daily. Patient understands the importance of compliance with her medications. Repeat echo shows diastolic dysfunction with EF of 60 to 65%. Will continue to diurese the patient 80 to 100 mL/h with keeping a goal of 2-1/2 L/day and replete electrolytes as needed. Exam Vital Signs Temp Pulse Resp BP Pulse Ox O2 Del Method O2 Flow Rate 97.9 F 102 H 18 91/68 100 Nasal Cannula 3 06/09/24 12:00 06/09/24 15:01 06/09/24 15:01 06/09/24 13:52 06/09/24 15:01 06/09/24 12:00 06/09/24 15:01 Narrative Exam GENERAL: A&Ox3 . Awake, Morbidly obese woman, cooperative, Not in acute distress NEURO: no focal neurological deficits noted HEENT: Atraumatic, Normocephalic. mucous membranes moist. Eyes open, symmetrical, & clear HEART: Normal Heart Sounds LUNGS: Clear to auscultation with no wheezing or crackles. ABDOMEN: soft, non-distended, non-tender, bowel sounds heard, no guarding or rebound tenderness SKIN: No Rash or ecchymoses EXTREMITIES: 3+ bilateral lower limb edema and anasarca, difficult to palpate peripheral pulses due to edema, able to move all 4 extremities, pedal pulses palpated Objective Labs 06/09/24 04:45 06/09/24 04:45 Labs: Laboratory Results - last 24 hr 06/09/24 04:45 WBC 6.6 RBC 2.68 L Hgb 8.1 L Hct 28.3 L MCV 106 H MCH 30.2 MCHC 28.6 L RDW Std Deviation 72.7 H Plt Count 232 D Neut % (Auto) 61 Lymph % (Auto) 23 [place] % (Auto) 12 Eos % (Auto) 2 Baso % (Auto) 1 Neut # (Auto) 4.0 Lymph # (Auto) 1.5 [place] # (Auto) 0.8 Eos # (Auto) 0.1 Baso # (Auto) 0.1 Immature Gran # (Auto) 0.06 H Absolute Nucleated RBC 0.00 Immature Gran % 1 H Nucleated RBC % 0 Sodium 138 Potassium 3.8 D Chloride 100 Carbon Dioxide 32.3 H Anion Gap 6 L BUN 8 L Creatinine 0.6 Estim Creat Clear Calc 129.0 eGFR > 60 BUN/Creatinine Ratio 13 Glucose 157 H Calculated Osmolality 276 Calcium 7.8 L Corrected Calcium 8.9 Phosphorus 2.5 Magnesium 1.6 Total Bilirubin 0.7 AST 55 H ALT 26 Alkaline Phosphatase 151 H D Total Protein 5.6 L Albumin 2.6 L Globulin 3.0 Albumin/Globulin Ratio 0.9 L Quality Measures Quality Measures sepsis Current suspected stage: ruled out Possible source: pulmonary Blood cultures ordered: yes Antibiotic ordered: Yes Assessment & Plan Assessment Current Active Medications: Generic Name Dose Route Start Last Admin Trade Name Freq PRN Reason Stop Dose Admin Acetaminophen 650 mg 06/08/24 05:50 Acetaminophen 325 Mg Tablet PO 07/08/24 05:49 Q6H PRN Fever >101.5 Acetaminophen 650 mg 06/08/24 05:50 Acetaminophen 325 Mg Tablet PO 07/08/24 05:49 Q6H PRN PAIN SCALE 1-3 (mild Albuterol/Ipratropium 3 ml 06/08/24 07:00 06/09/24 14:59 Albuterol/Ipratropium (Duoneb) Rt Charisse 3 Ml Nebu INH 07/08/24 06:59 3 ml Q8HRRT DA Administration Apixaban 5 mg 06/08/24 09:00 06/09/24 09:28 Apixaban 2.5 Mg Tablet PO 06/29/24 08:59 5 mg BID DA Administration Atorvastatin Calcium 20 mg 06/08/24 21:00 06/08/24 20:54 Atorvastatin Calcium 20 Mg Tablet PO 07/08/24 20:59 20 mg HS DA Administration Bumetanide 2 mg 06/08/24 07:00 06/09/24 09:28 Bumetanide Inj 0.25 Mg/Ml Vial 4 Ml IVP 07/08/24 06:59 2 mg Q12HR DA Administration Duloxetine HCl 60 mg 06/08/24 09:00 06/09/24 09:45 Duloxetine Hcl 30 Mg Capsule PO 07/08/24 08:59 60 mg QDAY DA Administration Gabapentin 600 mg 06/08/24 06:15 06/09/24 13:52 Gabapentin 300 Mg Capsule PO 07/08/24 06:14 600 mg TID DA Administration Hydromorphone HCl 0.5 mg 06/08/24 05:50 06/08/24 06:35 Hydromorphone Inj 2 Mg/Ml Vial IVP 06/13/24 05:49 0.5 mg Q2H PRN Administration PAIN SCALE 4-10(Mod-Sev Ceftriaxone Sodium/Dextrose 1 gm in 50 mls @ 100 mls/hr 06/08/24 07:00 06/09/24 09:29 Rocephin/D5w 1gm Iv Premix IV 06/15/24 06:59 100 mls/hr QDAY DA Administration Vancomycin HCl 1,500 mg/ 500 mls @ 200 mls/hr 06/08/24 22:00 06/09/24 10:48 Sodium Chloride IV 06/15/24 21:59 200 mls/hr Q12H DA Administration Levothyroxine Sodium 50 mcg 06/08/24 06:10 06/09/24 05:15 Levothyroxine Sodium 25 Mcg Tablet PO 07/08/24 06:09 50 mcg ACBR DA Administration Midodrine 10 mg 06/08/24 14:00 06/09/24 13:52 Midodrine 5 Mg Tablet PO 07/08/24 13:59 10 mg TID DA Administration Ondansetron HCl 4 mg 06/08/24 05:50 06/08/24 06:36 Ondansetron Inj 2 Mg/Ml Inj 2 Ml IV 07/08/24 05:49 4 mg Q6H PRN Administration NAUSEA OR VOMITING Protocol Pantoprazole Sodium 40 mg 06/08/24 09:00 06/09/24 09:27 Pantoprazole 40 Mg Tablet PO 07/08/24 08:59 40 mg QDAY DA Administration Pharmacy Consult 1 each 06/08/24 06:00 Vancomycin Pharmacy To Dose 1 Each Each IV 07/08/24 05:59 Q24H PRN RX Spironolactone 50 mg 06/08/24 09:00 06/09/24 09:27 Spironolactone 25 Mg Tablet PO 07/08/24 08:59 50 mg BID DA Administration Plan Ms. Caban is a 64-year-old female with significant past medical history of alcoholic liver cirrhosis, DVT on Eliquis, left fibular injury, chronic back pain, hypothyroidism, depression, left calf hematoma, bilateral osteoarthritis of knee, left tibial and fibular fracture presented to ED with chief complaint of worsening SOB and bilateral leg pain and swelling for the past 2-3 weeks. The patient is admitted to [facility] telemetry unit for further management of bilateral lower extremity cellulitis and volume overload. #Anasarca #Likely 2/2 cirrhosis and component of right heart failure #medication non compliance #COPD on 2 L oxygen #Lactic acidosis -Likely secondary to volume overload in the setting of cirrhosis -Patient met 2/4 SIRS criteria with tachycardia and tachypnea, but qSOFA criteria was only 1/3, significant for low suspicion of sepsis. -Patient has been noncompliant to evening dose of Lasix -lactic acid of 4.0 -Pt admits to not taking medications either she is unable to reach it or she is bothered by having to go to the bathroom often Plan: -Started on Bumex 2 mg IV twice daily - On Aldactone 50 Mg twice daily - On IV ceftriaxone and vancomycin for cellulitis - Strict ins and outs - Fluid restriction to 1200 cc daily - Blood and urine culture ordered - Low-sodium diet -Will continue Midodrine and bumex -Goal is Net negative 2.5 L - Daily a.m. lab for CBC and CMP #Acute on chronic hypoxic respiratory failure 03/18 #Acute diastolic CHF exacerbation, Right heart failure #Pulmonary arterial hypertension -On admission Patient reported worsening of SOB, and increasing oxygen requirement, was requiring up to 4 L of oxygen in the ED -TTE done on January 2024 revealed RVSP of 50, and LVEF 55% -Echo 06/08/24- LV appears normal with EF 60-65%. Diastolic Dysfunction I. RV appears normal with RVSP 47 mmHg. Mild MR & MAC AOV sclerosis Mild TR Plan: - Oxygen as needed - DuoNeb every 8 hourly - Continue Diureses #Hypokalemia- improved Patient presented with potassium of 3.1 Patient received 40 mEq p.o. KCl in the ED - Further repleted with 40 mEq of p.o. KCl - ordered 4 g of IV magnesium sulfate - Daily a.m. labs for potassium and magnesium, replete as needed #Hx of Left calf hematoma Patient has history of left calf hematoma after being stopped on toilet pappas a long time ago - Continue to monitor #History of unprovoked DVT - Continue home Eliquis 5 Mg twice daily #Medications noncompliance - Consider discharging to SNF after improvement of cellulitis; until patient is ambulatory and is able to take her medications on her own. Health maintenance: Dispo: Patient admitted to [facility] telemetry unit for further management of bilateral lower limb cellulitis complicated by cirrhosis Diet: Cardiac diet, fluid restriction 1200 cc/day DVT prophylaxis: On Eliquis 5 Mg twice daily CODE STATUS: Full code Assessment and plan discussed with my senior resident Dr. Lara & attending physician Dr. Manny Fabian (PGY-1)- Internal medicine resident
[2024-06-09] MEDS: HYDROmorphone INJ 2 MG/ML VIAL 0.5 MG IVP (19:21)
[2024-06-09] MEDS: ATORVASTATIN CALCIUM 20 MG TABLET PO (21:21)
[2024-06-09 21:59] LABS: Vancomycin,Trough 19.9 mcg/mL (5.0-10.0)
[2024-06-09] MEDS: ACETAMINOPHEN 325 MG TABLET 650 MG PO (22:36)
[2024-06-10] VITALS (15 sets, daily range): BP systolic 90–130; BP diastolic 59–81; PULSE 83–103; RESP 16–20; TEMP 35.9–36.4; O2SAT 92–100
[2024-06-10] MEDS: MIDODRINE 5 MG TABLET 10 MG PO ×3 (05:14→21:06)
[2024-06-10] MEDS: GABAPENTIN 300 MG CAPSULE 600 MG PO ×3 (05:15→21:06)
[2024-06-10] MEDS: LEVOTHYROXINE SODIUM 25 MCG TABLET 50 MCG PO (05:15)
[2024-06-10 06:43] LABS: Basophils # (Auto) 0.1 Thou/mm3 (0.0-0.2); Basophils % (Auto) 1 % (0-2.5); Eosinophils # (Auto) 0.2 Thou/mm3 (0.0-0.5); Eosinophils % (Auto) 3 % (0-10); Hematocrit 26.6 % (36.0-46.0); Immature Granulocytes % (Auto) 1 % (0-0); Immature Granulocytes Auto 0.08 Thou/mm3 (0.00-0.00); Lymphocytes # (Auto) 1.6 Thou/mm3 (1.0-4.8); Lymphocytes % (Auto) 26 % (10-50); Mean Corpuscular HGB Conc 28.9 g/dl (31.0-37.0); Mean Corpuscular Hemoglobin 30.7 pg (25.0-35.0); Mean Corpuscular Volume 106 fL (80-100); Monocytes # (Auto) 0.7 Thou/mm3 (0.0-0.8); Monocytes % (Auto) 12 % (0-12); Neutrophils # (Auto) 3.5 Thou/mm3 (1.8-7.7); Neutrophils % (Auto) 57 % (37-80); Nucleated Red Blood Cell % 0 /100 WBC (0); Platelet Count 200 Thou/mm3 (140-440); RDW Standard Deviation 71.6 fL (36.4-46.3); Red Blood Count 2.51 Miln/mm3 (4.00-5.20); White Blood Count 6.2 Thou/mm3 (3.6-11.0)
[2024-06-10 06:45] LABS: Hemoglobin 7.7 g/dL (12.0-16.0)
[2024-06-10 06:47] LABS: Alanine Aminotransferase 23 U/L (10-49); Albumin, Serum 2.4 gm/dL (3.4-4.8); Albumin/Globulin Ratio 0.8 (1.2-2.2); Alkaline Phosphatase 134 U/L (46-116); Anion Gap 6 (7-16); Aspartate Amino Transferase 45 U/L (0-34); BUN/Creatinine Ratio 12 Ratio (12-20); Bilirubin,Total 0.3 mg/dL (0.3-1.2); Blood Urea Nitrogen 7 mg/dL (9-23); Calcium 7.8 mg/dL (8.3-10.6); Calcium (Corrected) 9.1 mg/dL (8.5-10.1); Carbon Dioxide 33.2 mMol/L (20.0-31.0); Chloride 100 mMol/L (98-107); Creatinine (Component) 0.6 mg/dL (0.6-1.3); Estimated Creatinine Clearance 128.8 mL/min (>60); Globulin 2.9 gm/dL (2.3-3.5); Glucose 104 mg/dL (74-106); Magnesium 1.5 mg/dL (1.6-2.6); Osmolality,Calculated 275 (275-295); Phosphorous 2.4 mg/dL (2.4-5.1); Potassium 3.7 mMol/L (3.4-5.1); Sodium 139 mMol/L (136-145); Total Protein 5.3 gm/dL (5.7-8.2); eGFR > 60 See Note
[2024-06-10] MEDS: ALBUTEROL/IPRATROPIUM (Duoneb) RT SOL 3 ML NEBU INH ×3 (07:05→22:41)
[2024-06-10] MEDS: BUMETANIDE INJ 0.25 MG/ML VIAL 4 ML 2 MG IVP ×2 (08:52→21:05)
[2024-06-10] MEDS: cefTRIAXone/D5w 1gm IV premix 1 GM/50 ML BAG IV (08:52)
[2024-06-10] MEDS: SPIRONOLACTONE 25 MG TABLET 50 MG PO ×2 (08:55→21:06)
[2024-06-10] MEDS: DULoxetine HCL 30 MG CAPSULE 60 MG PO (08:56)
[2024-06-10] MEDS: PANTOPRAZOLE 40 MG TABLET PO (08:56)
[2024-06-10] MEDS: APIXABAN 2.5 MG TABLET 5 MG PO ×2 (08:56→21:07)
[2024-06-10] MEDS: VANCOMYCIN/D5W 1,250 MG IVPB 250 ML 120 MG IV ×2 (09:34→21:07)
[2024-06-10] MEDS: Magnesium Sulfate 4 GM Ivpb 4 GM/50 ML BAG IV (09:34)
[2024-06-10] MEDS: HYDROmorphone INJ 2 MG/ML VIAL 0.5 MG IVP ×2 (09:34→13:44)
[2024-06-10] MEDS: POTASSIUM CHLORIDE 20 mEq TABCR 40 MEQ PO (11:36)
[2024-06-10] MEDS: ALBUMIN HUMAN 25% IVPB 25 GM/100 ML BTL IV ×4 (11:38→16:30)
--- NOTE | 2024-06-10 18:05 | ESPR_ITS ---
<Statement entered by Von Bryant MD - 06/13/24 14:55> I reviewed above note and agree with findings and plans. I have also personally examined the patient with medicine team and went over assessment and plan with medical team including general internist and resident physician. <Statement entered by Francesco Calderon MD - 06/11/24 10:29> Patient seen and assessed at bedside, swelling improving and oxygen requirements improving. Patient to continue diuresis and we will give albumin to increase oncotic pressure. Case discussed with team. Francesco Calderon MD PGY3. Documentation for date of: 06/10/24 Subjective Subjective Interval history: No acute overnight events reported. Patient seen and examined at bedside this morning. Patient denies any shortness of breath, chest pain, palpitations, abdominal pain. Patient appears to be in a positive mood today and is happy that she was able to ambulate and was able to get out of the bed and walk to the commode in the bathroom. Currently patient is saturating above 92% on 2 L oxygen via nasal cannula vitals are stable with blood pressure 130/81, patient is currently net -2180. Currently making great progress with diuresing. Will add albumin to help maximize diuresing by increasing oncotic pressure and moving fluid into the blood vessels. Patient is also receiving midodrine to prevent hypotension during diuresing. Exam Vital Signs Temp Pulse Resp BP Pulse Ox O2 Del Method O2 Flow Rate 96.6 F L 94 20 98/63 92 L Nasal Cannula 2 06/10/24 16:00 06/10/24 16:00 06/10/24 16:00 06/10/24 16:00 06/10/24 16:00 06/10/24 16:06/10/24 16:00 Narrative Exam GENERAL: A&Ox3 . Awake, Morbidly obese woman, cooperative, Not in acute distress NEURO: no focal neurological deficits noted HEENT: Atraumatic, Normocephalic. mucous membranes moist. Eyes open, symmetrical, & clear HEART: Normal Heart Sounds LUNGS: Clear to auscultation with no wheezing or crackles. ABDOMEN: soft, non-distended, non-tender, bowel sounds heard, no guarding or rebound tenderness SKIN: No Rash or ecchymoses EXTREMITIES: 2+ bilateral lower limb edema and anasarca (improving), able to move all 4 extremities, pedal pulses palpated Objective Labs 06/10/24 05:09 06/10/24 05:09 Labs: Laboratory Results - last 24 hr 06/09/24 06/10/24 21:20 05:09 WBC 6.2 RBC 2.51 L Hgb 7.7 L Hct 26.6 L MCV 106 H MCH 30.7 MCHC 28.9 L RDW Std Deviation 71.6 H Plt Count 200 D Neut % (Auto) 57 Lymph % (Auto) 26 [place] % (Auto) 12 Eos % (Auto) 3 Baso % (Auto) 1 Neut # (Auto) 3.5 Lymph # (Auto) 1.6 [place] # (Auto) 0.7 Eos # (Auto) 0.2 Baso # (Auto) 0.1 Immature Gran # (Auto) 0.08 H Absolute Nucleated RBC 0.00 Immature Gran % 1 H Nucleated RBC % 0 Sodium 139 Potassium 3.7 Chloride 100 Carbon Dioxide 33.2 H Anion Gap 6 L BUN 7 L Creatinine 0.6 Estim Creat Clear Calc 128.8 eGFR > 60 BUN/Creatinine Ratio 12 Glucose 104 D Calculated Osmolality 275 Calcium 7.8 L Corrected Calcium 9.1 Phosphorus 2.4 Magnesium 1.5 L Total Bilirubin 0.3 AST 45 H ALT 23 Alkaline Phosphatase 134 H Total Protein 5.3 L Albumin 2.4 L Globulin 2.9 Albumin/Globulin Ratio 0.8 L Vancomycin Trough 19.9 H Quality Measures Quality Measures sepsis Current suspected stage: ruled out Possible source: pulmonary Blood cultures ordered: yes Antibiotic ordered: Yes Assessment & Plan Assessment Current Active Medications: Generic Name Dose Route Start Last Admin Trade Name Jeromyq PRN Reason Stop Dose Admin Acetaminophen 650 mg 06/08/24 05:50 Acetaminophen 325 Mg Tablet PO 07/08/24 05:49 Q6H PRN Fever >101.5 Acetaminophen 650 mg 06/08/24 05:50 06/09/24 22:36 Acetaminophen 325 Mg Tablet PO 07/08/24 05:49 650 mg Q6H PRN Administration PAIN SCALE 1-3 (mild Albuterol/Ipratropium 3 ml 06/08/24 07:00 06/10/24 15:05 Albuterol/Ipratropium (Duoneb) Rt Charisse 3 Ml Nebu INH 07/08/24 06:59 3 ml Q8HRRT DA Administration Apixaban 5 mg 06/08/24 09:00 06/10/24 08:56 Apixaban 2.5 Mg Tablet PO 06/29/24 08:59 5 mg BID DA Administration Atorvastatin Calcium 20 mg 06/08/24 21:00 06/09/24 21:21 Atorvastatin Calcium 20 Mg Tablet PO 07/08/24 20:59 20 mg HS DA Administration Bumetanide 2 mg 06/08/24 07:00 06/10/24 08:52 Bumetanide Inj 0.25 Mg/Ml Vial 4 Ml IVP 07/08/24 06:59 2 mg Q12HR DA Administration Duloxetine HCl 60 mg 06/08/24 09:00 06/10/24 08:56 Duloxetine Hcl 30 Mg Capsule PO 07/08/24 08:59 60 mg QDAY DA Administration Gabapentin 600 mg 06/08/24 06:15 06/10/24 13:43 Gabapentin 300 Mg Capsule PO 07/08/24 06:14 600 mg TID DA Administration Hydromorphone HCl 0.5 mg 06/08/24 05:50 06/10/24 13:44 Hydromorphone Inj 2 Mg/Ml Vial IVP 06/13/24 05:49 0.5 mg Q2H PRN Administration PAIN SCALE 4-10(Mod-Sev Ceftriaxone Sodium/Dextrose 1 gm in 50 mls @ 100 mls/hr 06/08/24 07:00 06/10/24 08:52 Rocephin/D5w 1gm Iv Premix IV 06/15/24 06:59 100 mls/hr QDAY DA Administration Vancomycin HCl/Dextrose 250 mls @ 120 mls/hr 06/10/24 10:00 06/10/24 09:34 Vancomycin/D5w 1,250 Mg Ivpb IV 06/17/24 09:59 120 mls/hr BID@1000,2200 DA Administration Protocol Levothyroxine Sodium 50 mcg 06/08/24 06:10 06/10/24 05:15 Levothyroxine Sodium 25 Mcg Tablet PO 07/08/24 06:09 50 mcg ACBR DA Administration Midodrine 10 mg 06/08/24 14:00 06/10/24 13:43 Midodrine 5 Mg Tablet PO 07/08/24 13:59 10 mg TID DA Administration Ondansetron HCl 4 mg 06/08/24 05:50 06/08/24 06:36 Ondansetron Inj 2 Mg/Ml Inj 2 Ml IV 07/08/24 05:49 4 mg Q6H PRN Administration NAUSEA OR VOMITING Protocol Pantoprazole Sodium 40 mg 06/08/24 09:00 06/10/24 08:56 Pantoprazole 40 Mg Tablet PO 07/08/24 08:59 40 mg QDAY DA Administration Pharmacy Consult 1 each 06/08/24 06:00 Vancomycin Pharmacy To Dose 1 Each Each IV 07/08/24 05:59 Q24H PRN RX Spironolactone 50 mg 06/08/24 09:00 06/10/24 08:55 Spironolactone 25 Mg Tablet PO 07/08/24 08:59 50 mg BID [facility] Administration Plan Ms. Caban is a 64-year-old female with significant past medical history of alcoholic liver cirrhosis, DVT on Eliquis, left fibular injury, chronic back pain, hypothyroidism, depression, left calf hematoma, bilateral osteoarthritis of knee, left tibial and fibular fracture presented to ED with chief complaint of worsening SOB and bilateral leg pain and swelling for the past 2-3 weeks. The patient is admitted to [facility] telemetry unit for further management of bilateral lower extremity cellulitis and volume overload. #Anasarca #Likely 2/2 cirrhosis and component of right heart failure #medication non compliance #COPD on 2 L oxygen #Lactic acidosis -Likely secondary to volume overload in the setting of cirrhosis -Patient met 2/4 SIRS criteria with tachycardia and tachypnea, but qSOFA criteria was only 1/3, significant for low suspicion of sepsis. -Patient has been noncompliant to evening dose of Lasix -lactic acid of 4.0 -Pt admits to not taking medications either she is unable to reach it or she is bothered by having to go to the bathroom often Plan: -Started on Bumex 2 mg IV twice daily - On Aldactone 50 Mg twice daily - On IV ceftriaxone and vancomycin for cellulitis - Strict ins and outs - Fluid restriction to 1200 cc daily - Blood and urine culture no growth at 48 hrs - Low-sodium diet -Will continue Midodrine and bumex -Goal is Net negative 2.5 L - Daily a.m. lab for CBC and CMP #Acute on chronic hypoxic respiratory failure 2/2 #Acute diastolic CHF exacerbation, Right heart failure #Pulmonary arterial hypertension -On admission Patient reported worsening of SOB, and increasing oxygen requirement, was requiring up to 4 L of oxygen in the ED -TTE done on January 2024 revealed RVSP of 50, and LVEF 55% -Echo 06/08/24- LV appears normal with EF 60-65%. Diastolic Dysfunction I. RV appears normal with RVSP 47 mmHg. Mild MR & MAC AOV sclerosis Mild TR Plan: - Oxygen as needed - DuoNeb every 8 hourly - Continue Diureses #Hypokalemia- improved Patient presented with potassium of 3.1 Patient received 40 mEq p.o. KCl in the ED - Further repleted with 40 mEq of p.o. KCl - ordered 4 g of IV magnesium sulfate - Daily a.m. labs for potassium and magnesium, replete as needed #Hx of Left calf hematoma Patient has history of left calf hematoma after being stopped on toilet pappas a long time ago - Continue to monitor #History of unprovoked DVT - Continue home Eliquis 5 Mg twice daily #Medications noncompliance - Consider discharging to SNF after improvement of cellulitis; until patient is ambulatory and is able to take her medications on her own. Health maintenance: Dispo: Patient admitted to [facility] telemetry unit for further management of bilateral lower limb cellulitis complicated by cirrhosis Diet: Cardiac diet, fluid restriction 1200 cc/day DVT prophylaxis: On Eliquis 5 Mg twice daily CODE STATUS: Full code Assessment and plan discussed with my senior resident Dr. Calderon & attending physician Dr. Manny Fabian (PGY-1)- Internal medicine resident
[2024-06-10] MEDS: ATORVASTATIN CALCIUM 20 MG TABLET PO (21:06)
--- NOTE | 2024-06-10 21:07 | PC.NURSE ---
MD Spencer made aware that pt hgb is 7.7, mo actibe bleeding noted, pt is on Eliquis, per MD montanez to administer this meds.
[2024-06-11] VITALS (10 sets, daily range): BP systolic 111–141; BP diastolic 56–70; PULSE 80–111; RESP 18–19; TEMP 36.2–36.3; O2SAT 95–100
[2024-06-11 05:41] LABS: Basophils % (Auto) 0 % (0-2.5); Eosinophils # (Auto) 0.2 Thou/mm3 (0.0-0.5); Eosinophils % (Auto) 3 % (0-10); Hematocrit 26.2 % (36.0-46.0); Immature Granulocytes % (Auto) 1 % (0-0); Immature Granulocytes Auto 0.07 Thou/mm3 (0.00-0.00); Lymphocytes # (Auto) 1.3 Thou/mm3 (1.0-4.8); Lymphocytes % (Auto) 18 % (10-50); Mean Corpuscular HGB Conc 29.8 g/dl (31.0-37.0); Mean Corpuscular Hemoglobin 31.1 pg (25.0-35.0); Mean Corpuscular Volume 104 fL (80-100); Monocytes # (Auto) 0.6 Thou/mm3 (0.0-0.8); Monocytes % (Auto) 8 % (0-12); Neutrophils # (Auto) 4.9 Thou/mm3 (1.8-7.7); Neutrophils % (Auto) 70 % (37-80); Nucleated Red Blood Cell % 0 /100 WBC (0); Platelet Count 228 Thou/mm3 (140-440); Red Blood Count 2.51 Miln/mm3 (4.00-5.20)
[2024-06-11] MEDS: HYDROmorphone INJ 2 MG/ML VIAL 0.5 MG IVP ×2 (05:42→12:13)
[2024-06-11] MEDS: GABAPENTIN 300 MG CAPSULE 600 MG PO ×2 (05:42→13:40)
[2024-06-11] MEDS: LEVOTHYROXINE SODIUM 25 MCG TABLET 50 MCG PO (05:42)
[2024-06-11] MEDS: MIDODRINE 5 MG TABLET 10 MG PO ×2 (05:42→13:40)
[2024-06-11 05:50] LABS: Hemoglobin 7.8 g/dL (12.0-16.0)
[2024-06-11 06:05] LABS: Alanine Aminotransferase 17 U/L (10-49); Albumin, Serum 3.3 gm/dL (3.4-4.8); Albumin/Globulin Ratio 1.2 (1.2-2.2); Alkaline Phosphatase 114 U/L (46-116); Anion Gap 4 (7-16); Aspartate Amino Transferase 35 U/L (0-34); BUN/Creatinine Ratio 10 Ratio (12-20); Bilirubin,Total 0.5 mg/dL (0.3-1.2); Blood Urea Nitrogen 6 mg/dL (9-23); Calcium 8.6 mg/dL (8.3-10.6); Calcium (Corrected) 9.2 mg/dL (8.5-10.1); Carbon Dioxide 38.6 mMol/L (20.0-31.0); Chloride 96 mMol/L (98-107); Creatinine (Component) 0.6 mg/dL (0.6-1.3); Estimated Creatinine Clearance 128.8 mL/min (>60); Globulin 2.8 gm/dL (2.3-3.5); Glucose 98 mg/dL (74-106); Magnesium 1.8 mg/dL (1.6-2.6); Osmolality,Calculated 275 (275-295); Phosphorous 2.9 mg/dL (2.4-5.1); Potassium 3.8 mMol/L (3.4-5.1); Sodium 139 mMol/L (136-145); Total Protein 6.1 gm/dL (5.7-8.2); eGFR > 60 See Note
[2024-06-11] MEDS: ALBUTEROL/IPRATROPIUM (Duoneb) RT SOL 3 ML NEBU INH (06:31)
[2024-06-11] MEDS: BUMETANIDE INJ 0.25 MG/ML VIAL 4 ML 2 MG IVP (09:19)
[2024-06-11] MEDS: SPIRONOLACTONE 25 MG TABLET 50 MG PO (09:19)
[2024-06-11] MEDS: PANTOPRAZOLE 40 MG TABLET PO (09:19)
[2024-06-11] MEDS: DULoxetine HCL 30 MG CAPSULE 60 MG PO (09:19)
[2024-06-11] MEDS: cefTRIAXone/D5w 1gm IV premix 1 GM/50 ML BAG IV (09:20)
[2024-06-11] MEDS: APIXABAN 2.5 MG TABLET 5 MG PO (09:20)
[2024-06-11 10:33] LABS: Vancomycin,Trough 27.3 mcg/mL (5.0-10.0)
--- NOTE | 2024-06-11 12:10 | PC.SS ---
SS follow up note; Patient will discharge home with HH today.
--- NOTE | 2024-06-11 15:40 | ESDS_ITS ---
<Statement entered by Von Bryant MD - 06/15/24 08:12> I reviewed above note and agree with findings and plans. I have also personally examined the patient with medicine team and went over assessment and plan with medical team including international specialist and resident physician. Planned Discharge Date 06/11/24 DS: Providers Provider Primary care physician: LIZBETH Cameron Attending Provider on Admission: Marisa Fernandes MD Attending Provider on DC: Joe Lara MD Discharging Provider: Joe Lara MD DS: Diagnosis Problem List Completed Was Problem List Reviewed/Reconciled?: Yes Hospital Course Hospital Course Hospital course: The patient is a 64 years old female with PMH of alcoholic liver cirrhosis, unprovoked DVT on Eliquis, chronic back pain, hypothyroidism, depression, osteoarthritis, alcohol use disorder presented to ED complaining of SOB and bilateral leg pain and swelling that has been worsening for past 2 to 3 weeks. She was recently discharged after admission for similar complaints. In the ED her vitals were significant for blood pressure of 108/73, RR 22, pulse 97 saturating 96% 2 L NC. CBC revealed hemoglobin 9.6, MCV 103, potassium 3.1, blood sugar 159, lactic acid 4.0, magnesium 1.7, AST 68, ALP 178, Pro-Jcarlos 0.17, UA negative. CXR revealed mild vascular congestions. The patient received doxycycline and metronidazole IV x 1 in the ED. Patient was admitted for further management of bilateral lower extremity swelling and cellulitis and CHF exacerbation and was started on IV Bumex, ceftriaxone and vancomycin. Her condition improved significantly and she was deemed stable for discharge on oral cefalexin and doxycycline today. She was counseled regarding drinking alcohol as she admitted drinking after discharge from previous admission. She also admitted skipping Lasix as it makes her to go to restroom frequently and was explained that it is the reason why she is readmitted and might lead to serious complications including . #Anasarca, improved. #Likely 2/2 cirrhosis and component of right heart failure. #COPD on 2 L oxygen. #Lactic acidosis, resolved. #Acute on chronic hypoxic respiratory failure 2/2 #Acute diastolic CHF exacerbation, Right heart failure. #Pulmonary arterial hypertension. #Hypokalemia, improved. #Hx of Left calf hematoma. #History of unprovoked DVT. #Medications noncompliance. #Alcohol use disorder. Plan of care discussed with attending Dr. Bryant. Joe Lara MD, PGY 2. Disclaimer: This note was dictated by speech recognition. Minor errors in look out tower fire watcher may be present due to voice recognition software. Time Spent with Patient Time attestation: Total time spent providing and/or coordinating discharge services: Time spent: Greater than 30 minutes Exam Vital Signs Temp Pulse Resp BP Pulse Ox O2 Del Method O2 Flow Rate 97.2 F 97 18 98/63 93 L Nasal Cannula 2 06/02/24 08:00 06/02/24 08:00 06/02/24 08:00 06/02/24 08:00 06/02/24 08:00 06/02/24 08:00 06/02/24 08:00 FiO2 3 06/02/24 06:38 Narrative Exam Gen: Well-developed and well-nourished obese female. HEENT: NCAT, PERRLA, EOMI, MMM, anicteric conjunctivae, poor dentition. CVS: normal S1 and S2. RRR. No M/R/G. Resp: CTA B/L. No rhonchi, rales, crackles or wheezing. Abd: soft, obese, non-tender, non-distended. BS+ in all 4 quadrants. MSK: Good ROM in BUE & BLE. 1+ pitting edema BLE with mild hyperemia. 2 cm well healing wound over her left lower leg. Neuro: CN II-XII grossly intact. Strength 5/5 in BUE & BLE. Alert and oriented x3. Psych: appropriate mood and affect. Discharge Plan Plan Patient Disposition: HOME (Self Care) Prescriptions/Referrals Prescriptions/Med Rec: No Action furosemide 40 mg tablet 40 mg PO BID Qty: 60 1RF tramadol 50 mg tablet 50 mg PO Q8H MDD 150 mg PRN (Reason: pain) Qty: 14 0RF thiamine HCl (vitamin B1) 100 mg tablet 100 mg PO QDAY Qty: 30 1RF levothyroxine 50 mcg capsule 50 mcg PO AC Eliquis 5 mg tablet 5 mg PO BID Qty: 60 0RF ergocalciferol (vitamin D2) 1,250 mcg (50,000 unit) capsule 1,250 mcg PO QWEEK meloxicam 7.5 mg tablet 15 mg PO QDAY pregabalin 100 mg capsule 100 mg PO TID Qty: 90 0RF doxycycline hyclate 100 mg capsule 100 mg PO BID 4 Days Qty: 8 0RF cephalexin 500 mg capsule 500 mg PO QID 4 Days Qty: 16 0RF albuterol sulfate 90 mcg/actuation HFA aerosol inhaler 2 inh INHALATION Q6H PRN (Reason: wheeze) duloxetine 60 mg capsule,delayed release(DR/EC) 60 mg PO DAILY atorvastatin 20 mg tablet 20 mg PO DAILY naloxone [Narcan] 4 mg/actuation spray,non-aerosol 4 mg intranasal Q2M PRN (Reason: opioid overdose) Qty: 2 0RF Rx Instructions: spray 1 dose into ONE nostril; alternate nostrils w each dose until help arrives pantoprazole 40 mg tablet,delayed release (DR/EC) 40 mg PO DAILY gabapentin 600 mg tablet 600 mg PO Q8H spironolactone 50 mg tablet 50 mg PO Q12H Referrals: Ny Vázquez FNP [Primary Care Provider] - Patient/Caregiver Discharge Instructions Print Language: Thai Stand Alone Forms: Patient Portal Info Letter Quality Discharge Quality Measures VTE prophylaxis
--- NOTE | 2024-06-11 16:06 | PC.CC ---
Addendum entered by Renée Armstrong RN 06/11/24 16:30: [facility] accepted the pt. Booked [facility]. Pending resume of care date. Original Note: per SS notes pt is open with [facility]. HH referral sent on [facility]. Awaiting responses. Pending start of care date.
--- NOTE | 2024-06-12 15:02 | PC.CM ---
[facility] will open patient on 06/14.
== END 2024-06-11 14:43 | disposition home health service (06) | DRG 383 ==
LOC: SERX 06-08 05:28 → SERHOLD 06-08 06:23 → S3NX 06-08 18:29
PROVIDERS: Physician Assistant; Student in an Organized Health Care Education/Training Program; Admitting Provider Student in an Organized Health Care Education/Training Program; Emergency Provider Emergency Medicine; Visit Provider Internal Medicine
DX: L03.116 Cellulitis of left lower limb (principal); L03.115 Cellulitis of right lower limb; K70.30 Alcoholic cirrhosis of liver without ascites; E03.9 Hypothyroidism, unspecified; G89.29 Other chronic pain; F32.A Depression, unspecified; J44.9 Chronic obstructive pulmonary disease, unspecified; J96.21 Acute and chronic respiratory failure with hypoxia; I27.21 Secondary pulmonary arterial hypertension; E87.6 Hypokalemia; E87.20 Acidosis, unspecified; S80.12XA Contusion of left lower leg, initial encounter; F10.10 Alcohol abuse, uncomplicated; Z91.148 Patient's other noncompliance with medication regimen for other reason; M21.372 Foot drop, left foot; M17.0 Bilateral primary osteoarthritis of knee; I50.33 Acute on chronic diastolic (congestive) heart failure; Z99.3 Dependence on wheelchair; F15.90 Other stimulant use, unspecified, uncomplicated; Z79.01 Long term (current) use of anticoagulants; Z88.0 Allergy status to penicillin; Z79.899 Other long term (current) drug therapy; Z79.890 Hormone replacement therapy; Z98.84 Bariatric surgery status; Z99.81 Dependence on supplemental oxygen; I50.82 Biventricular heart failure
CPT/HCPCS: 36415; 71045; 80053; 80202; 81001; 83605; 83735; 83880; 84100; 84145; 84439; 84484; 85025; 85610; 85730; 87040; 87081; 87086; 93005; 93225; 93306; 94640; 94664; 96365; 96366; 96367; 96368; 96375; 99291; A9270; J0696; J1171; J2405; J3370; J3475; J3490; J7040; P9047; J1836

== ENCOUNTER → 2024-06-12 | Outpatient (CLI) | payer MEDICAID, SELFPAY ==
--- NOTE | 2024-06-11 15:40 | PD.RESDS ---
Planned Discharge Date 06/11/24 DS: Providers Provider Primary care physician: LIZBETH Cameron Attending Provider on Admission: Marisa Fernandes MD Attending Provider on DC: Joe Lara MD Discharging Provider: Joe Lara MD DS: Diagnosis Problem List Completed Was Problem List Reviewed/Reconciled?: Yes Hospital Course Hospital Course Hospital course: The patient is a 64 years old female with PMH of alcoholic liver cirrhosis, unprovoked DVT on Eliquis, chronic back pain, hypothyroidism, depression, osteoarthritis, alcohol use disorder presented to ED complaining of SOB and bilateral leg pain and swelling that has been worsening for past 2 to 3 weeks. She was recently discharged after admission for similar complaints. In the ED her vitals were significant for blood pressure of 108/73, RR 22, pulse 97 saturating 96% 2 L NC. CBC revealed hemoglobin 9.6, MCV 103, potassium 3.1, blood sugar 159, lactic acid 4.0, magnesium 1.7, AST 68, ALP 178, Pro-Jcarlos 0.17, UA negative. CXR revealed mild vascular congestions. The patient received doxycycline and metronidazole IV x 1 in the ED. Patient was admitted for further management of bilateral lower extremity swelling and cellulitis and CHF exacerbation and was started on IV Bumex, ceftriaxone and vancomycin. Her condition improved significantly and she was deemed stable for discharge on oral cefalexin and doxycycline today. She was counseled regarding drinking alcohol as she admitted drinking after discharge from previous admission. She also admitted skipping Lasix as it makes her to go to restroom frequently and was explained that it is the reason why she is readmitted and might lead to serious complications including . #Anasarca, improved. #Likely 2/2 cirrhosis and component of right heart failure. #COPD on 2 L oxygen. #Lactic acidosis, resolved. #Acute on chronic hypoxic respiratory failure 2/2 #Acute diastolic CHF exacerbation, Right heart failure. #Pulmonary arterial hypertension. #Hypokalemia, improved. #Hx of Left calf hematoma. #History of unprovoked DVT. #Medications noncompliance. #Alcohol use disorder. Plan of care discussed with attending Dr. Bryant. Joe Lara MD, PGY 2. Disclaimer: This note was dictated by speech recognition. Minor errors in staffing and scheduling coordinator may be present due to voice recognition software. Time Spent with Patient Time attestation: Total time spent providing and/or coordinating discharge services: Time spent: Greater than 30 minutes Exam Vital Signs Temp Pulse Resp BP Pulse Ox O2 Del Method O2 Flow Rate 97.2 F 97 18 98/63 93 L Nasal Cannula 2 06/02/24 08:00 06/02/24 08:00 06/02/24 08:00 06/02/24 08:00 06/02/24 08:00 06/02/24 08:00 06/02/24 08:00 FiO2 3 06/02/24 06:38 Narrative Exam Gen: Well-developed and well-nourished obese female. HEENT: NCAT, PERRLA, EOMI, MMM, anicteric conjunctivae, poor dentition. CVS: normal S1 and S2. RRR. No M/R/G. Resp: CTA B/L. No rhonchi, rales, crackles or wheezing. Abd: soft, obese, non-tender, non-distended. BS+ in all 4 quadrants. MSK: Good ROM in BUE & BLE. 1+ pitting edema BLE with mild hyperemia. 2 cm well healing wound over her left lower leg. Neuro: CN II-XII grossly intact. Strength 5/5 in BUE & BLE. Alert and oriented x3. Psych: appropriate mood and affect. Discharge Plan Plan Patient Disposition: HOME (Self Care) Prescriptions/Referrals Prescriptions/Med Rec: No Action furosemide 40 mg tablet 40 mg PO BID Qty: 60 1RF tramadol 50 mg tablet 50 mg PO Q8H MDD 150 mg PRN (Reason: pain) Qty: 14 0RF thiamine HCl (vitamin B1) 100 mg tablet 100 mg PO QDAY Qty: 30 1RF levothyroxine 50 mcg capsule 50 mcg PO AC Eliquis 5 mg tablet 5 mg PO BID Qty: 60 0RF ergocalciferol (vitamin D2) 1,250 mcg (50,000 unit) capsule 1,250 mcg PO QWEEK meloxicam 7.5 mg tablet 15 mg PO QDAY pregabalin 100 mg capsule 100 mg PO TID Qty: 90 0RF doxycycline hyclate 100 mg capsule 100 mg PO BID 4 Days Qty: 8 0RF cephalexin 500 mg capsule 500 mg PO QID 4 Days Qty: 16 0RF albuterol sulfate 90 mcg/actuation HFA aerosol inhaler 2 inh INHALATION Q6H PRN (Reason: wheeze) duloxetine 60 mg capsule,delayed release(DR/EC) 60 mg PO DAILY atorvastatin 20 mg tablet 20 mg PO DAILY naloxone [Narcan] 4 mg/actuation spray,non-aerosol 4 mg intranasal Q2M PRN (Reason: opioid overdose) Qty: 2 0RF Rx Instructions: spray 1 dose into ONE nostril; alternate nostrils w each dose until help arrives pantoprazole 40 mg tablet,delayed release (DR/EC) 40 mg PO DAILY gabapentin 600 mg tablet 600 mg PO Q8H spironolactone 50 mg tablet 50 mg PO Q12H Referrals: Ny Vázquez FNP [Primary Care Provider] - Patient/Caregiver Discharge Instructions Print Language: Belarusian Stand Alone Forms: Patient Portal Info Letter Quality Discharge Quality Measures VTE prophylaxis
== END | disposition home or self-care (01) ==
LOC: SWHD 10:50
PROVIDERS: PCP Nurse Practitioner Family; Referring Provider Nurse Practitioner Family; Visit Provider Student in an Organized Health Care Education/Training Program
DX: S91.102A Unspecified open wound of left great toe without damage to nail, initial encounter (principal); X58.XXXA Exposure to other specified factors, initial encounter; J44.9 Chronic obstructive pulmonary disease, unspecified; D64.9 Anemia, unspecified; I10 Essential (primary) hypertension; F03.90 Unspecified dementia, unspecified severity, without behavioral disturbance, psychotic disturbance, mood disturbance, and anxiety; F10.90 Alcohol use, unspecified, uncomplicated; I82.409 Acute embolism and thrombosis of unspecified deep veins of unspecified lower extremity
CPT/HCPCS: 17250; A9270

== ENCOUNTER → 2024-06-19 | Outpatient (CLI) | payer MEDICAID, SELFPAY | END | disposition home or self-care (01) | PROVIDERS: PCP Nurse Practitioner Family; Referring Provider Nurse Practitioner Family; Visit Provider Surgery | DX: S91.102A Unspecified open wound of left great toe without damage to nail, initial encounter (principal); X58.XXXA Exposure to other specified factors, initial encounter; J44.9 Chronic obstructive pulmonary disease, unspecified; D64.9 Anemia, unspecified; I10 Essential (primary) hypertension; F03.90 Unspecified dementia, unspecified severity, without behavioral disturbance, psychotic disturbance, mood disturbance, and anxiety; F10.90 Alcohol use, unspecified, uncomplicated; I82.409 Acute embolism and thrombosis of unspecified deep veins of unspecified lower extremity | CPT/HCPCS: 97597; A9270 ==

== ENCOUNTER 2024-06-20 14:29 | Outpatient (AMB) | payer MEDICAID, SELFPAY ==
[2024-06-20 14:53] VITALS: BP 131/80; PULSE 113; RESP 18; TEMP 36.9; O2SAT 98
--- NOTE | 2024-06-20 14:53 | PD.RESCLINIC ---
Vital Signs 06/20/24 14:53 Weight 118.047 kg Weight Measurement Method Standing Scale BP 131/80 H Blood Pressure Source Automatic Cuff Blood Pressure Location Right Upper Arm Position Sitting Respiration 18 Pulse 113 H Pulse Source Monitor Temp 98.5 F Temp Source Temporal Artery Scan Pulse Oximetry (%) 98 Oxygen Delivery Method Room Air Allergies/Meds Allergies & Medications Allergies Penicillins Allergy (Severe, Verified 06/20/24 14:53) Anaphylaxis erythromycin base Adverse Reaction (Intermediate, Verified 06/20/24 14:53) Abdominal Pain Medication Reconciliation albuterol sulfate 90 mcg/actuation aerosol inhaler 2 inh inhalation Q6H PRN wheeze 10/27/22 [History Confirmed 06/20/24] duloxetine 60 mg capsule,delayed release 60 mg PO DAILY 10/27/22 [History Confirmed 06/20/24] levothyroxine 50 mcg capsule 50 mcg PO AC 02/12/23 [History Confirmed 06/20/24] apixaban 5 mg tablet (Eliquis) 5 mg PO BID #60 tabs 02/14/23 [Rx Confirmed 06/20/24] atorvastatin 20 mg tablet 20 mg PO DAILY 02/01/24 [History Confirmed 06/20/24] naloxone 4 mg/actuation nasal spray (Narcan) 4 mg intranasal Q2M PRN opioid overdose #2 ea 02/03/24 [Rx Confirmed 06/20/24] ergocalciferol (vitamin D2) 1,250 mcg (50,000 unit) capsule 1,250 mcg PO QWEEK 05/18/24 [History Confirmed 06/20/24] meloxicam 7.5 mg tablet 15 mg PO QDAY 05/18/24 [History Confirmed 06/20/24] pregabalin 100 mg capsule 100 mg PO TID #90 caps 05/18/24 [Rx Confirmed 06/20/24] furosemide 40 mg tablet 40 mg PO BID #60 tabs 05/25/24 [Rx Confirmed 06/20/24] thiamine HCl (vitamin B1) 100 mg tablet 100 mg PO QDAY #30 tabs 05/25/24 [Rx Confirmed 06/20/24] tramadol 50 mg tablet 50 mg PO Q8H PRN pain #14 tabs 05/25/24 [Rx Confirmed 06/20/24] gabapentin 600 mg tablet 600 mg PO Q8H 06/01/24 [History Confirmed 06/20/24] pantoprazole 40 mg tablet,delayed release 40 mg PO DAILY 06/01/24 [History Confirmed 06/20/24] spironolactone 50 mg tablet 50 mg PO Q12H 06/01/24 [History Confirmed 06/20/24] MA Intake Visit Data Collection New Patient or Established: Established Patient (seen at [facility] within 3 years) Seen by Clinical Staff ONLY (RN/MA): No Pain Present Currently: No Pain scale:: 0 Pain Scale Used: Curtis-Goetz/Numerical Compliance Counsel Required: No PCP or OBGYN visit in last 3 months: No Hx Now: No Do You Feel Safe at Home: Yes Authorities Contacted: N/A Smoking Status Smoking Status: Never smoker Immunization / Flu Flu Vaccine in the Last 12 Months: No Flu Vaccine Exclusion Criteria: No Exclusion Criteria Past Medical History Past Medical History NEUROLOGIC: Negative Neurological Disorders, Dementia or Seizures CARDIAC: Positive Cardiac Disorders, Hypercholesterolemia, Deep Vein Thrombosis and Hypertension; Negative Atrial Fibrillation, Coronary Artery Disease or Congestive Heart Failure RESPIRATORY: Positive Chronic Obstructive Pulmonary Disease (COPD), Asthma, Bronchitis, Sleep Apnea, Smoking and Tobacco Use GASTROINTESTINAL: Positive Gastrointestinal Disorders, Cirrhosis, Diverticulitis, Diverticulosis, Hiatal Hernia and Gastroesophageal Reflux Disease; Negative Celiac Disease GENITOURINARY: Negative Genitourinary Disorders or Renal Disease REPRODUCTIVE: Negative Pelvic Inflammatory Disease MUSCULOSKELETAL: Positive Arthritis, Osteoporosis, Degenerative Disk Disease and Fractures; Negative Muscular Dystrophy or Bone Cancer ENT: Negative Cataracts ENDOCRINE: Positive Endocrine Disorders and Hypothyroidism; Negative Diabetes Mellitus Type 1 or Diabetes Mellitus Type 2 HEMATOLOGIC: Positive Anemia; Negative Sickle Cell Disease PSYCHO/SOCIAL: Positive Recreational Drug Use, Depression and Anxiety OTHER HISTORY: Positive Falls, Blood Transfusions and Chicken Pox; Negative Autoimmune Disease, Down Syndrome, Developmental Delay, Blood Transfusion Reaction, Anesthesia Reactions, Organ Transplant, MRSA, VRSA, Vancomycin-Resistant Enterococci, Clostridium Difficile or Cancer Family History FAMILY HISTORY: Positive Family Cardiac Disorders and Family Cancer Surgical History SURGICAL: Negative Thyroidectomy or Organ Transplant Social History SMOKING STATUS: Smoking status: Never smoker PACK YEARS: Pack-Years: 48 ALCOHOL: Alcohol Intake: Current ALCOHOL FREQUENCY: Alcohol Intake Frequency: 0-2 Drinks per Day HOUSING: Housing: House LIVES WITH: Lives With: Alone Patient Portal Beronica Social History Living Situation History Housing: House Housing Other:: Pt short term stay with [facility] Tobacco History Smoking Status: Never smoker Packs per Day: 0.5 Pack-Years: 46 Number of Smoking Years (pipe): 45 Alcohol History Alcohol Intake: Current Alcohol Intake Frequency: 0-2 Drinks per Day Substance Use History Substance Use: meth quit 4 years Domestic Abuse History Do You Feel Safe at Home: Yes Review of Systems Report any current symptoms Only answer those that you have currently: Past Medical History Past Medical History Have you ever been diagnosed with any of the following: Neurological Problems Dementia: No Seizures: No Cardiology Problems Atrial Fibrillation: No Coronary Artery Disease: No Hypercholesterolemia: Yes Congestive Heart Failure: No Deep Vein Thrombosis: Yes Hypertension: Yes Respiratory Problems Chronic Obstructive Pulmonary Disease (COPD): Yes Asthma: Yes Bronchitis: Yes Sleep Apnea: Yes Smoking: Yes Tobacco Use: Yes Stomache/Intestinal Problems Cirrhosis: Yes Celiac Disease: No Diverticulitis: Yes Diverticulosis: Yes Hiatal Hernia: Yes Gastroesophageal Reflux Disease: Yes Genital/Urinary Problems Renal Disease: No Reproductive Problems Pelvic Inflammatory Disease: No Musculoskeletal Problems Muscular Dystrophy: No Bone Cancer: No Arthritis: Yes Osteoporosis: Yes Degenerative Disk Disease: Yes Fractures: Yes Head,Eye,Nose,Throat Problems Cataracts: No Endocrine Problems Diabetes Mellitus Type 1: No Diabetes Mellitus Type 2: No Hypothyroidism: Yes Blood Problems Anemia: Yes Sickle Cell Disease: No Psychologic Problems Recreational Drug Use: Yes Depression: Yes Anxiety: Yes Other Problems Autoimmune Disease: No Down Syndrome: No Developmental Delay: No Falls: Yes Blood Transfusions: Yes Blood Transfusion Reaction: No Anesthesia Reactions: No Organ Transplant: No MRSA: No VRSA: No Vancomycin-Resistant Enterococci: No Chicken Pox: Yes Clostridium Difficile: No Cancer: No Surgical History Thyroidectomy: No Office Procedures [facility] Level of Care Nursing/Assessment Patient Status: Established Patient Nursing Assessment/Reassessment: Medication Reconciliation, Update PMH in EMR and Vital Signs Coordination of Care: Complex Care and Chronic Disease 1-5, Consent,records obtained, informed consent, Education Simp Pt/Fam and Staff clarify orders Established Patient Charge Established Patient Point Assignment: 85 Established Patient Point Charge: Level 3 (80-115)
--- NOTE | 2024-06-20 15:00 | ACNOTE_ITS ---
Vital Signs 06/20/24 14:53 06/20/24 15:01 Weight 118.047 kg Weight Measurement Method Standing Scale BP 131/80 H 131/80 H Blood Pressure Source Automatic Cuff Blood Pressure Location Right Upper Arm Position Sitting Respiration 18 18 Pulse 113 H 113 H Pulse Source Monitor Temp 98.5 F 98.5 F Temp Source Temporal Artery Scan Pulse Oximetry (%) 98 98 Oxygen Delivery Method Room Air Allergies/Meds Allergies & Medications Allergies Penicillins Allergy (Severe, Verified 06/20/24 14:53) Anaphylaxis erythromycin base Adverse Reaction (Intermediate, Verified 06/20/24 14:53) Abdominal Pain Medication Reconciliation albuterol sulfate 90 mcg/actuation aerosol inhaler 2 inh inhalation Q6H PRN wheeze 10/27/22 [History Confirmed 06/20/24] duloxetine 60 mg capsule,delayed release 60 mg PO DAILY 10/27/22 [History Confirmed 06/20/24] levothyroxine 50 mcg capsule 50 mcg PO AC 02/12/23 [History Confirmed 06/20/24] apixaban 5 mg tablet (Eliquis) 5 mg PO BID #60 tabs 02/14/23 [Rx Confirmed 06/20/24] atorvastatin 20 mg tablet 20 mg PO DAILY 02/01/24 [History Confirmed 06/20/24] naloxone 4 mg/actuation nasal spray (Narcan) 4 mg intranasal Q2M PRN opioid overdose #2 ea 02/03/24 [Rx Confirmed 06/20/24] ergocalciferol (vitamin D2) 1,250 mcg (50,000 unit) capsule 1,250 mcg PO QWEEK 05/18/24 [History Confirmed 06/20/24] meloxicam 7.5 mg tablet 15 mg PO QDAY 05/18/24 [History Confirmed 06/20/24] pregabalin 100 mg capsule 100 mg PO TID #90 caps 05/18/24 [Rx Confirmed 06/20/24] furosemide 40 mg tablet 40 mg PO BID #60 tabs 05/25/24 [Rx Confirmed 06/20/24] thiamine HCl (vitamin B1) 100 mg tablet 100 mg PO QDAY #30 tabs 05/25/24 [Rx Confirmed 06/20/24] tramadol 50 mg tablet 50 mg PO Q8H PRN pain #14 tabs 05/25/24 [Rx Confirmed 06/20/24] gabapentin 600 mg tablet 600 mg PO Q8H 06/01/24 [History Confirmed 06/20/24] pantoprazole 40 mg tablet,delayed release 40 mg PO DAILY 06/01/24 [History Confirmed 06/20/24] spironolactone 50 mg tablet 50 mg PO Q12H 06/01/24 [History Confirmed 06/20/24] fluconazole 100 mg tablet (Diflucan) 150 mg (1.5 x 100 mg) PO QDAY #2 tabs 06/20/24 [Rx] MA Intake Visit Data Collection PCP or OBGYN visit in last 3 months: No Do You Feel Safe at Home: Yes Smoking Status Smoking Status: Never smoker Immunization / Flu Flu Vaccine in the Last 12 Months: Yes Flu Vaccine Exclusion Criteria: Already Received Past Medical History Past Medical History NEUROLOGIC: Negative Neurological Disorders, Dementia or Seizures CARDIAC: Positive Cardiac Disorders, Hypercholesterolemia, Deep Vein Thrombosis and Hypertension; Negative Atrial Fibrillation, Coronary Artery Disease or Congestive Heart Failure RESPIRATORY: Positive Chronic Obstructive Pulmonary Disease (COPD), Asthma, Bronchitis, Sleep Apnea, Smoking and Tobacco Use GASTROINTESTINAL: Positive Gastrointestinal Disorders, Cirrhosis, Diverticulitis, Diverticulosis, Hiatal Hernia and Gastroesophageal Reflux Disease; Negative Celiac Disease GENITOURINARY: Negative Genitourinary Disorders or Renal Disease REPRODUCTIVE: Negative Pelvic Inflammatory Disease MUSCULOSKELETAL: Positive Arthritis, Osteoporosis, Degenerative Disk Disease and Fractures; Negative Muscular Dystrophy or Bone Cancer ENT: Negative Cataracts ENDOCRINE: Positive Endocrine Disorders and Hypothyroidism; Negative Diabetes Mellitus Type 1 or Diabetes Mellitus Type 2 HEMATOLOGIC: Positive Anemia; Negative Sickle Cell Disease PSYCHO/SOCIAL: Positive Recreational Drug Use, Depression and Anxiety OTHER HISTORY: Positive Falls, Blood Transfusions and Chicken Pox; Negative Autoimmune Disease, Down Syndrome, Developmental Delay, Blood Transfusion Reaction, Anesthesia Reactions, Organ Transplant, MRSA, VRSA, Vancomycin-Resistant Enterococci, Clostridium Difficile or Cancer Family History FAMILY HISTORY: Positive Family Cardiac Disorders and Family Cancer Surgical History SURGICAL: Negative Thyroidectomy or Organ Transplant Social History SMOKING STATUS: Smoking status: Never smoker PACK YEARS: Pack-Years: 48 ALCOHOL: Alcohol Intake: Current ALCOHOL FREQUENCY: Alcohol Intake Frequency: 0-2 Drinks per Day HOUSING: Housing: House LIVES WITH: Lives With: Alone Patient Portal Questionaires Social History Living Situation History Housing: House Housing Other:: Pt short term stay with [facility] Tobacco History Smoking Status: Never smoker Packs per Day: 0.5 Pack-Years: 46 Number of Smoking Years (pipe): 45 Alcohol History Alcohol Intake: Current Alcohol Intake Frequency: 0-2 Drinks per Day Substance Use History Substance Use: meth quit 4 years Domestic Abuse History Do You Feel Safe at Home: Yes Review of Systems Report any current symptoms Only answer those that you have currently: Past Medical History Past Medical History Have you ever been diagnosed with any of the following: Neurological Problems Dementia: No Seizures: No Cardiology Problems Atrial Fibrillation: No Coronary Artery Disease: No Hypercholesterolemia: Yes Congestive Heart Failure: No Deep Vein Thrombosis: Yes Hypertension: Yes Respiratory Problems Chronic Obstructive Pulmonary Disease (COPD): Yes Asthma: Yes Bronchitis: Yes Sleep Apnea: Yes Smoking: Yes Tobacco Use: Yes Stomache/Intestinal Problems Cirrhosis: Yes Celiac Disease: No Diverticulitis: Yes Diverticulosis: Yes Hiatal Hernia: Yes Gastroesophageal Reflux Disease: Yes Genital/Urinary Problems Renal Disease: No Reproductive Problems Pelvic Inflammatory Disease: No Musculoskeletal Problems Muscular Dystrophy: No Bone Cancer: No Arthritis: Yes Osteoporosis: Yes Degenerative Disk Disease: Yes Fractures: Yes Head,Eye,Nose,Throat Problems Cataracts: No Endocrine Problems Diabetes Mellitus Type 1: No Diabetes Mellitus Type 2: No Hypothyroidism: Yes Blood Problems Anemia: Yes Sickle Cell Disease: No Psychologic Problems Recreational Drug Use: Yes Depression: Yes Anxiety: Yes Other Problems Autoimmune Disease: No Down Syndrome: No Developmental Delay: No Falls: Yes Blood Transfusions: Yes Blood Transfusion Reaction: No Anesthesia Reactions: No Organ Transplant: No MRSA: No VRSA: No Vancomycin-Resistant Enterococci: No Chicken Pox: Yes Clostridium Difficile: No Cancer: No Surgical History Thyroidectomy: No History of Present Illness HPI Narrative Miss Caban a 64 years old female with PMH of alcoholic liver cirrhosis, 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 Patient was recently discharged from [facility] after treatment for b/l LE cellulitis. Patient had completed course of Cefalexin and doxycycline after hospital discharge on 06/11/24. For the last x2 days patient has been experiencing vulvaginal erythema and pain. Patient denied discharge,dysuria, fever, chills, diarrhea or other associated symptoms. Per patient, she has history of having yeast infection post antibiotic treatments. Perscription for Diflucan 150 mg X1 with refills sent to pharmacy. Patient advised not to take refills unless no improvement in x1 week. Patient has upcoming appointment with Dr. Ly on 06/29/24. Review of Systems Review of Systems Systems Reviewed: All systems reviewed, normal except as documented Objective/Exam Narrative Physical exam: Constitutional: well-developed, well-nourished, in no acute distress, in wheelchair HEENT: NCAT, EOMI, reactive round pupils b/l, patent nares b/l, moist mucous membranes Lung: CTAB, no wheezing, no rhonchi Heart: Regular S1S2, no murmurs, gallops, or rubs Abdomen: Soft, non-distended, non-tender, bowel sounds present throughout Urogenital: b/l inguinal, vulvar and vaginal erythema, swelling, no discharge noted Neurologic: No focal sensory or motor deficits noted, AOx3, appropriate affect Assessment & Plan Diagnosis / Problem List (1) Vulvovaginitis joel albicans: Status: Acute Assessment & Plan: Patient with history of yeast infections post antibiotics usage Patient recently d/c from hospital with p.o. abx for cellulitis For last x2 days patient having vulvovaginal pain Physical exam significant for yeast infection Plan: -Diflucan 150 mg x1 with refills prescribed -Follow up appt on 06/29/24 Office Procedures [facility] Level of Care Nursing/Assessment Patient Status: Established Patient Nursing Assessment/Reassessment: Medication Reconciliation, Update PMH in EMR and Vital Signs Coordination of Care: Complex Care and Chronic Disease 1-5, Consent,records obtained, informed consent, Education Simp Pt/Fam and Staff clarify orders Established Patient Charge Established Patient Point Assignment: 85 Established Patient Point Charge: EP Level 3 (80-115)
[2024-06-20 15:01] VITALS: BP 131/80; PULSE 113; RESP 18; TEMP 36.9; O2SAT 98
== END 2024-06-20 15:10 | disposition home or self-care (01) ==
LOC: HODAHC 14:29
PROVIDERS: Supervising Provider Internal Medicine; Visit Provider Internal Medicine
DX: B37.31 Acute candidiasis of vulva and vagina (principal)
CPT/HCPCS: 99213; G0463

== ENCOUNTER → 2024-06-26 | Outpatient (CLI) | payer MEDICAID, SELFPAY | END | disposition home or self-care (01) | LOC: SWHD 09:03 | PROVIDERS: PCP Nurse Practitioner Family; Referring Provider Nurse Practitioner Family; Visit Provider Student in an Organized Health Care Education/Training Program | DX: S91.102A Unspecified open wound of left great toe without damage to nail, initial encounter (principal); X58.XXXA Exposure to other specified factors, initial encounter; J44.9 Chronic obstructive pulmonary disease, unspecified; D64.9 Anemia, unspecified; I10 Essential (primary) hypertension; F03.90 Unspecified dementia, unspecified severity, without behavioral disturbance, psychotic disturbance, mood disturbance, and anxiety; F10.90 Alcohol use, unspecified, uncomplicated; I82.409 Acute embolism and thrombosis of unspecified deep veins of unspecified lower extremity; E66.09 Other obesity due to excess calories | CPT/HCPCS: 17250; A9270 ==

== ENCOUNTER 2024-06-29 13:38 | Outpatient (AMB) | payer MEDICAID, SELFPAY ==
[2024-06-29 13:54] VITALS: BP 103/69; PULSE 109; RESP 18; TEMP 36.6; O2SAT 94
--- NOTE | 2024-06-29 13:54 | ACNOTE_ITS ---
Vital Signs 06/29/24 13:54 BP 103/69 Blood Pressure Source Automatic Cuff Blood Pressure Location Right Upper Arm Position Sitting Respiration 18 Pulse 109 H Pulse Source Monitor Temp 97.8 F Temp Source Temporal Artery Scan Pulse Oximetry (%) 94 L Oxygen Delivery Method Room Air Allergies/Meds Allergies & Medications Allergies Penicillins Allergy (Severe, Verified 07/04/24 08:21) Anaphylaxis erythromycin base Adverse Reaction (Intermediate, Verified 07/04/24 08:21) Abdominal Pain Medication Reconciliation albuterol sulfate 90 mcg/actuation aerosol inhaler 2 inh inhalation Q6H PRN wheeze 10/27/22 [History Confirmed 07/04/24] duloxetine 60 mg capsule,delayed release 60 mg PO DAILY 10/27/22 [History Confirmed 07/04/24] apixaban 5 mg tablet (Eliquis) 5 mg PO BID #60 tabs 02/14/23 [Rx Confirmed 07/04/24] atorvastatin 20 mg tablet 20 mg PO DAILY 02/01/24 [History Confirmed 07/04/24] naloxone 4 mg/actuation nasal spray (Narcan) 4 mg intranasal Q2M PRN opioid overdose #2 ea 02/03/24 [Rx Confirmed 07/04/24] ergocalciferol (vitamin D2) 1,250 mcg (50,000 unit) capsule 1,250 mcg PO QWEEK 05/18/24 [History Confirmed 07/04/24] meloxicam 7.5 mg tablet 15 mg PO QDAY 05/18/24 [History Confirmed 07/04/24] furosemide 40 mg tablet 40 mg PO BID #60 tabs 05/25/24 [Rx Confirmed 07/04/24] thiamine HCl (vitamin B1) 100 mg tablet 100 mg PO QDAY #30 tabs 05/25/24 [Rx Confirmed 07/04/24] tramadol 50 mg tablet 50 mg PO Q8H PRN pain #14 tabs 05/25/24 [Rx Confirmed 07/04/24] gabapentin 600 mg tablet 600 mg PO Q8H 06/01/24 [History Confirmed 07/04/24] pantoprazole 40 mg tablet,delayed release 40 mg PO DAILY 06/01/24 [History Confirmed 07/04/24] fluconazole 100 mg tablet (Diflucan) 150 mg (1.5 x 100 mg) PO QDAY #2 tabs 06/20/24 [Rx Confirmed 07/04/24] levothyroxine 50 mcg capsule 50 mcg PO AC #60 caps 06/29/24 [Rx Confirmed 07/04/24] pregabalin 100 mg capsule 100 mg PO TID #90 caps 06/29/24 [Rx Confirmed 07/04/24] spironolactone 50 mg tablet 50 mg PO QAM #30 tabs 06/29/24 [Rx Confirmed 07/04/24] MA Intake Visit Data Collection New Patient or Established: Established Patient (seen at [facility] within 3 years) Seen by Clinical Staff ONLY (RN/TARA): No Pain Present Currently: No Pain scale:: 0 Pain Scale Used: Curtis-Goetz/Numerical Assistant Hvac Mechanic Required: No PCP or OBGYN visit in last 3 months: No Hx Now: No Do You Feel Safe at Home: Yes Authorities Contacted: N/A Smoking Status Smoking Status: Never smoker Immunization / Flu Flu Vaccine in the Last 12 Months: No Flu Vaccine Exclusion Criteria: No Exclusion Criteria Past Medical History Past Medical History NEUROLOGIC: Negative Neurological Disorders, Dementia or Seizures CARDIAC: Positive Cardiac Disorders, Hypercholesterolemia, Deep Vein Thrombosis and Hypertension; Negative Atrial Fibrillation, Coronary Artery Disease or Congestive Heart Failure RESPIRATORY: Positive Chronic Obstructive Pulmonary Disease (COPD), Asthma, Bronchitis, Sleep Apnea, Smoking and Tobacco Use GASTROINTESTINAL: Positive Gastrointestinal Disorders, Cirrhosis, Diverticulitis, Diverticulosis, Hiatal Hernia and Gastroesophageal Reflux Disease; Negative Celiac Disease GENITOURINARY: Negative Genitourinary Disorders or Renal Disease REPRODUCTIVE: Negative Pelvic Inflammatory Disease MUSCULOSKELETAL: Positive Arthritis, Osteoporosis, Degenerative Disk Disease and Fractures; Negative Muscular Dystrophy or Bone Cancer ENT: Negative Cataracts ENDOCRINE: Positive Endocrine Disorders and Hypothyroidism; Negative Diabetes Mellitus Type 1 or Diabetes Mellitus Type 2 HEMATOLOGIC: Positive Anemia; Negative Sickle Cell Disease PSYCHO/SOCIAL: Positive Recreational Drug Use, Depression and Anxiety OTHER HISTORY: Positive Falls, Blood Transfusions and Chicken Pox; Negative Autoimmune Disease, Down Syndrome, Developmental Delay, Blood Transfusion Reaction, Anesthesia Reactions, Organ Transplant, MRSA, VRSA, Vancom ycin-Resistant Enterococci, Clostridium Difficile or Cancer Family History FAMILY HISTORY: Positive Family Cardiac Disorders and Family Cancer Surgical History SURGICAL: Negative Thyroidectomy or Organ Transplant Social History SMOKING STATUS: Smoking status: Never smoker PACK YEARS: Pack-Years: 48 ALCOHOL: Alcohol Intake: Current ALCOHOL FREQUENCY: Alcohol Intake Frequency: 0-2 Drinks per Day HOUSING: Housing: House LIVES WITH: Lives With: Alone Patient Portal Questionaires Social History Living Situation History Housing: House Housing Other:: Pt short term stay with [facility] Tobacco History Smoking Status: Never smoker Packs per Day: 0.5 Pack-Years: 46 Number of Smoking Years (pipe): 45 Alcohol History Alcohol Intake: Current Alcohol Intake Frequency: 0-2 Drinks per Day Substance Use History Substance Use: meth quit 4 years Domestic Abuse History Do You Feel Safe at Home: Yes Review of Systems Report any current symptoms Only answer those that you have currently: Past Medical History Past Medical History Have you ever been diagnosed with any of the following: Neurological Problems Dementia: No Seizures: No Cardiology Problems Atrial Fibrillation: No Coronary Artery Disease: No Hypercholesterolemia: Yes Congestive Heart Failure: No Deep Vein Thrombosis: Yes Hypertension: Yes Respiratory Problems Chronic Obstructive Pulmonary Disease (COPD): Yes Asthma: Yes Bronchitis: Yes Sleep Apnea: Yes Smoking: Yes Tobacco Use: Yes Stomache/Intestinal Problems Cirrhosis: Yes Celiac Disease: No Diverticulitis: Yes Diverticulosis: Yes Hiatal Hernia: Yes Gastroesophageal Reflux Disease: Yes Genital/Urinary Problems Renal Disease: No Reproductive Problems Pelvic Inflammatory Disease: No Musculoskeletal Problems Muscular Dystrophy: No Bone Cancer: No Arthritis: Yes Osteoporosis: Yes Degenerative Disk Disease: Yes Fractures: Yes Head,Eye,Nose,Throat Problems Cataracts: No Endocrine Problems Diabetes Mellitus Type 1: No Diabetes Mellitus Type 2: No Hypothyroidism: Yes Blood Problems Anemia: Yes Sickle Cell Disease: No Psychologic Problems Recreational Drug Use: Yes Depression: Yes Anxiety: Yes Other Problems Autoimmune Disease: No Down Syndrome: No Developmental Delay: No Falls: Yes Blood Transfusions: Yes Blood Transfusion Reaction: No Anesthesia Reactions: No Organ Transplant: No MRSA: No VRSA: No Vancomycin-Resistant Enterococci: No Chicken Pox: Yes Clostridium Difficile: No Cancer: No Surgical History Thyroidectomy: No Assessment & Plan Diagnosis / Problem List (1) Peripheral neuropathy: Status: Acute (2) Hypothyroid: Status: Acute Office Procedures [facility] [place] Level of Care Nursing/Assessment Patient Status: Established Patient Nursing Assessment/Reassessment: Medication Reconciliation, Update PMH in EMR and Vital Signs Coordination of Care: Complex Care and Chronic Disease 1-5, Consent,records obtained, informed consent, Education Simp Pt/Fam and Staff clarify orders Established Patient Charge Established Patient Point Assignment: 85 Established Patient Point Charge: Level 3 (80-115)
== END 2024-06-29 14:43 | disposition home or self-care (01) ==
LOC: HODAHC 13:38
PROVIDERS: Supervising Provider Internal Medicine
DX: G62.9 Polyneuropathy, unspecified (principal); E03.9 Hypothyroidism, unspecified
CPT/HCPCS: 99213; G0463

== ENCOUNTER 2024-06-30 23:14 | Emergency (ER) | payer MEDICAID, SELFPAY ==
[2024-06-30 23:17] VITALS: BMI 45.6
[2024-06-30 23:18] VITALS: BP 103/72; PULSE 97; RESP 19; TEMP 36.6; O2SAT 96
--- NOTE | 2024-06-30 23:31 | PD.EDLOWEX ---
Lower Extremity Injury RME/HPI General Chief Complaint: Extremity Injury, Lower Stated Complaint: LEG PAIN Time Seen by Provider: 06/30/24 23:27 Arrival date/time: 06/30/24 23:14 RME / HPI RME / HPI Narrative: Dr. Miguel?s Main ED Evaluation: 64yo female with a history of alcoholic liver cirrhosis, unprovoked DVT on Eliquis, chronic back pain, hypothyroidism, depression, osteoarthritis BIBA from home presents to the ED for a chief complaint of LLE pain. Patient states she fell asleep on her motorized wheelchair, reporting when she woke up she slid out of her wheelchair and hit her LLE. Patient reports having significant left knee pain. EMS administered fentanyl 100mcg en route. Patient denies any head strikes or LOC. Patient denies any headache, neck pain, chest pain, abdominal pain or any other associated symptoms. Patient denies taking/being on any pain medications at home. Patient is on blood thinners at home. Related Data Home Medications ?Medication ?Instructions ?Recorded ?Confirmed albuterol sulfate 90 mcg/actuation 2 inh inhalation Q6H PRN wheeze 10/27/22 06/20/24 aerosol inhaler duloxetine 60 mg capsule,delayed 60 mg PO DAILY 10/27/22 06/20/24 release atorvastatin 20 mg tablet 20 mg PO DAILY 02/01/24 06/20/24 ergocalciferol (vitamin D2) 1,250 1,250 mcg PO QWEEK 05/18/24 06/20/24 mcg (50,000 unit) capsule meloxicam 7.5 mg tablet 15 mg PO QDAY 05/18/24 06/20/24 gabapentin 600 mg tablet 600 mg PO Q8H 06/01/24 06/20/24 pantoprazole 40 mg tablet,delayed 40 mg PO DAILY 06/01/24 06/20/24 release Previous Rx's ?Medication ?Instructions ?Recorded apixaban 5 mg tablet (Eliquis) 5 mg PO BID #60 tabs 02/14/23 naloxone 4 mg/actuation nasal 4 mg intranasal Q2M PRN opioid 02/03/24 spray (Narcan) overdose #2 ea furosemide 40 mg tablet 40 mg PO BID #60 tabs 05/25/24 thiamine HCl (vitamin B1) 100 mg 100 mg PO QDAY #30 tabs 05/25/24 tablet tramadol 50 mg tablet 50 mg PO Q8H PRN pain #14 tabs 05/25/24 fluconazole 100 mg tablet 150 mg (1.5 x 100 mg) PO QDAY #2 06/20/24 (Diflucan) tabs levothyroxine 50 mcg capsule 50 mcg PO AC #60 caps 06/29/24 pregabalin 100 mg capsule 100 mg PO TID #90 caps 06/29/24 spironolactone 50 mg tablet 50 mg PO QAM #30 tabs 06/29/24 Allergies Allergy/AdvReac Type Severity Reaction Status Date / Time Penicillins Allergy Severe Anaphylaxis Verified 06/20/24 14:53 erythromycin base AdvReac Intermediate Abdominal Verified 06/20/24 14:53 Pain Review of Systems Review of Systems Systems Reviewed: All systems reviewed, normal except as documented Past Medical History Past Medical History NEUROLOGIC: Negative Neurological Disorders, Dementia or Seizures CARDIAC: Positive Cardiac Disorders, Hypercholesterolemia, Deep Vein Thrombosis and Hypertension; Negative Atrial Fibrillation, Coronary Artery Disease or Congestive Heart Failure RESPIRATORY: Positive Chronic Obstructive Pulmonary Disease (COPD), Asthma, Bronchitis, Sleep Apnea, Smoking and Tobacco Use GASTROINTESTINAL: Positive Gastrointestinal Disorders, Cirrhosis, Diverticulitis, Diverticulosis, Hiatal Hernia and Gastroesophageal Reflux Disease; Negative Celiac Disease GENITOURINARY: Negative Genitourinary Disorders or Renal Disease REPRODUCTIVE: Negative Pelvic Inflammatory Disease MUSCULOSKELETAL: Positive Musculoskeletal Disorders, Arthritis, Osteoporosis, Degenerative Disk Disease and Fractures; Negative Muscular Dystrophy or Bone Cancer ENT: Negative Cataracts ENDOCRINE: Positive Endocrine Disorders and Hypothyroidism; Negative Diabetes Mellitus Type 1 or Diabetes Mellitus Type 2 HEMATOLOGIC: Positive Anemia; Negative Sickle Cell Disease PSYCHO/SOCIAL: Positive Recreational Drug Use, Depression and Anxiety OTHER HISTORY: Positive Falls, Blood Transfusions and Chicken Pox; Negative Autoimmune Disease, Down Syndrome, Developmental Delay, Blood Transfusion Reaction, Anesthesia Reactions, Organ Transplant, MRSA, VRSA, Vancomycin-Resistant Enterococci, Clostridium Difficile or Cancer Family History FAMILY HISTORY: Positive Family Cardiac Disorders and Family Cancer Surgical History SURGICAL: Positive Abdominal Surgery, Gastric Bypass Surgery, Lumpectomy and Section; Negative Cardiac Surgery, Endocrine Surgery, Thyroidectomy, Ear Surgery, Tympanostomy Tube, Eye Surgery, Nose Surgery, Oral Surgery, Tonsillectomy, Adenoidectomy, Cochlear Implant, Corneal Transplant, Throat Surgery, Tracheostomy, Nephrectomy, Joint Replacement, Neurologic Surgery, Brain Shunt or Organ Transplant Social History SMOKING STATUS: Current every day smoker SUBSTANCE USE: methamphetamine ED Exam Narrative Physical exam: GENERAL APPEARANCE: alert and oriented x 4, well-developed, well-nourished, no acute distress VITALS: All vitals were reviewed and the pulse ox is 96% on 2L/NC, which is normal according to my interpretation. HEENT: Normocephalic, atraumatic; pupils equal, round, reactive to light; EOMI; mucous membranes pink, moist; oropharynx clear NECK: Supple LUNGS: CTABL; no wheezes, no rales, no rhonchi HEART: Regular rate, regular rhythm; normal S1, S2; no murmurs ABDOMEN: non distended; normal BS; soft, no tenderness, no guarding, no rebound; no masses, no organomegaly, no hernia BACK: no CVA tenderness EXTREMITIES: ; no edema NEUROLOGIC: awake; alert and oriented x4; cranial nerves II-XII grossly intact; no focal sensory or motor deficits PSYCHIATRIC: appropriate mood and affect SKIN: warm, dry; skin tear to the left lateral wrist; contusion and skin tear to the right posterior hand; multiple contusions around the BUE Course Quality Measures none Orders Category Date Time Status Apply knee immobilizer NOW Care 07/01/24 05:23 Active Prosthetics Technician NOW Care 06/30/24 23:31 Active Continuous Pulse Oximetry NOW Care 06/30/24 23:31 Completed NPO NOW Care 06/30/24 23:[address] femur LT wo con Stat Exams 07/01/24 01:36 Taken XR ankle LT 2V Stat Exams 06/30/24 23:32 Taken XR femur LT 2V Stat Exams 06/30/24 23:32 Taken XR foot AP & LAT LTD LT 2V Stat Exams 06/30/24 23:32 Taken XR hip LT w pelvis 2-3V Stat Exams 06/30/24 23:32 Taken XR knee limited LT 2V Stat Exams 06/30/24 23:32 Taken XR tibia fibula LT 2V Stat Exams 06/30/24 23:32 Taken CBC Stat Lab 06/30/24 23:41 Completed Comprehensive Metabolic Panel Stat Lab 06/30/24 23:41 Completed Free T4 (Free Thyroxine) Stat Lab 06/30/24 23:41 Completed Partial Thromboplastin Time Stat Lab 06/30/24 23:41 Completed Prothrombin Time with INR Stat Lab 06/30/24 23:41 Completed fentaNYL INJ [Sublimaze Inj] Med 06/30/24 23:32 Discontinued 100 mcg IVP X1 ONE fentaNYL INJ [Sublimaze Inj] Med 07/01/24 00:26 Discontinued 100 mcg IVP X1 ONE fentaNYL INJ [Sublimaze Inj] Med 07/01/24 01:37 Active 50 mcg IVP Q30MIN PRN fentaNYL INJ [Sublimaze Inj] Med 07/01/24 01:37 Discontinued 50 mcg IVP X1 ONE Vital Signs Vital signs: Vital Signs Temperature 97.8 F 06/30/24 23:18 Pulse Rate 97 06/30/24 23:18 Respiratory Rate 19 06/30/24 23:18 Blood Pressure 103/72 06/30/24 23:18 Pulse Oximetry (%) 96 06/30/24 23:18 Oxygen Delivery Method Nasal Cannula 06/30/24 23:18 Oxygen Flow Rate 2 06/30/24 23:18 Extremity Injury, Lower MDM Narrative MDM Narrative:: Scribe Attestation: 06/30/24 - Cyndi, Ya De am scribing for and in the presence of Dr. Miguel. 0047: Discussed case with Dr. Gonzalez from orthopedic surgery regarding consultation. Discussed patients ED course, exam findings, labs, and radiology results. I sent him the films. 0120: Dr. Gonzalez is here to evaluate the patient at bedside. 0133: Patient is nonambulatory at baseline, but she can stand and pivot. Dr. Gonzalez recommends CT of the left femur and likely transfer. Fentanyl 50mcg PRN ordered. CT shows an acute comminuted displaced fracture of the distal shaft of the femur. Knee immobilizer ordered. Patient will need transfer to a trauma center. 0600: Care signed out to Dr. Saini (emergency physician). Past medical, surgical, social and family history reviewed. Vitals and home medications reviewed. Results and treatment plan discussed. They will assume the care of the patient at this time and will follow the patient, pending transfer. Patient data External records reviewed:: [facility] previous records (Per chart review, patient was admitted here on 06/08/24 for cellulitis.) Clinical information provided by:: patient and EMS Social determinants that could affect healthcare access:: none Patient has the following chronic illnesses:: alcoholic liver cirrhosis, unprovoked DVT on Eliquis, chronic back pain, hypothyroidism, depression, osteoarthritis How is presenting disease/condition affected by chronic disease/condition?: uneffected by Evaluation data The following diagnostics were reviewed and interpreted by me:: lab results and radiology exam(s) Lab and/or radiology exams considered but not ordered:: none Interpretation Summary: WBC count is normal, HnH is 8.1/27.6, Glucose is 143, Free T4 is 0.76, according to my interpretation. Left ankle x-ray is negative for any fracture, dislocation or subluxation, according to my interpretation. Left femur x-ray shows a comminuted distal femur fracture without any knee involvement, no hip fracture, no hip dislocation, according to my interpretation. Left foot x-ray is negative for any fracture, dislocation or subluxation, according to my interpretation. Left hip x-ray is negative for any fracture, dislocation or pelvic ring fracture, according to my interpretation. Left knee x-ray shows a distal femoral fracture, no evidence of knee dislocation or tibial plateau fracture, according to my interpretation. Left tibia fibula x-ray is negative for any tibial plateau fracture, fibula fracture or patellar fracture, according to my interpretation. Telerad Preliminary Report Draft Patient: EDUARDO SINGH [facility]. Record#: [id number] Birthdate: 1960 Age/Sex: 64 / F Location: [facility] Attending Dr: Ordering Physician: Date of Service: Procedure(s): Accession Number(s): cc: ~ CT left femur without intravenous contrast (axial sections with sagittal and coronal reformats) July 01, 2024 0313 hours Clinical History: Distal left femur fracture Comparison:Reference is made to the prior report dated April Findings: There is an acute comminuted displaced fracture of the distal shaft of the femur. There is severe osteoarthritis of the knee. No dislocation is seen. There is osteopenia.The visualized muscles are unremarkable with maintained intermuscular fat planes. There is extensive subcutaneoussoft tissue edema of the thigh. Impression: Acute comminuted displaced fracture of the distal shaft of the femur. Subcutaneoussoft tissue edema of the thigh. Severe osteoarthritis of the knee. Osteopenia. Report Electronically Signed By: Gisella Livingston 07/01/2024 5:08:57 AM Medications / Prescriptions Medications or Prescriptions considered but not ordered:: none Medication administrations:: Medication Administration History Fentanyl Citrate (Fentanyl Cit Inj 50 Mcg/Ml Amp 2ml) 50 mcg IVP Q30MIN PRN PRN Reason: pain Stop: 07/06/24 01:36 Last Admin: 07/01/24 03:29 Dose: 50 mcg Documented By: CCT Discontinued Medications Fentanyl Citrate (Fentanyl Cit Inj 50 Mcg/Ml Amp 2ml) 100 mcg IVP X1 ONE Stop: 06/30/24 23:33 Last Admin: 06/30/24 23:44 Dose: 100 mcg Documented By: CVL Fentanyl Citrate (Fentanyl Cit Inj 50 Mcg/Ml Amp 2ml) 100 mcg IVP X1 ONE Stop: 07/01/24 00:27 Last Admin: 07/01/24 00:32 Dose: 100 mcg Documented By: CCT Fentanyl Citrate (Fentanyl Cit Inj 50 Mcg/Ml Amp 2ml) 50 mcg IVP X1 ONE Stop: 07/01/24 01:38 Last Admin: 07/01/24 01:49 Dose: 50 mcg Documented By: CVL see above Consultations Consultation(s) initiated? (list below): Yes Diagnosis Extremity Injury, Lower Differential Diagnosis: other (knee fracture, knee dislocation, femur fracture, femur dislocation, contusion, abrasion) Most likely diagnosis given after review of the tests above:: comminuted left femur fracture Admission Indicated Admission indicated?: not indicated Admission Request Was there a request for admission?: No Disposition Plan Disposition Plan: other (specify) (Signed out to Dr. Saini pending transfer.) Discharge Plan Prescriptions/Referrals Prescriptions/Med Rec: No Action furosemide 40 mg tablet 40 mg PO BID Qty: 60 1RF tramadol 50 mg tablet 50 mg PO Q8H MDD 150 mg PRN (Reason: pain) Qty: 14 0RF thiamine HCl (vitamin B1) 100 mg tablet 100 mg PO QDAY Qty: 30 1RF fluconazole [Diflucan] 100 mg tablet 150 mg PO QDAY Qty: 2 2RF pregabalin 100 mg capsule 100 mg PO TID Qty: 90 0RF levothyroxine 50 mcg capsule 50 mcg PO AC Qty: 60 1RF spironolactone 50 mg tablet 50 mg PO QAM Qty: 30 0RF Eliquis 5 mg tablet 5 mg PO BID Qty: 60 0RF ergocalciferol (vitamin D2) 1,250 mcg (50,000 unit) capsule 1,250 mcg PO QWEEK meloxicam 7.5 mg tablet 15 mg PO QDAY albuterol sulfate 90 mcg/actuation HFA aerosol inhaler 2 inh INHALATION Q6H PRN (Reason: wheeze) duloxetine 60 mg capsule,delayed release(DR/EC) 60 mg PO DAILY atorvastatin 20 mg tablet 20 mg PO DAILY naloxone [Narcan] 4 mg/actuation spray,non-aerosol 4 mg intranasal Q2M PRN (Reason: opioid overdose) Qty: 2 0RF Rx Instructions: spray 1 dose into ONE nostril; alternate nostrils w each dose until help arrives pantoprazole 40 mg tablet,delayed release (DR/EC) 40 mg PO DAILY gabapentin 600 mg tablet 600 mg PO Q8H Referrals: Luigi Lockhart MD [Primary Care Provider] - In 1 week Problem List Clinical Impression: Displaced comminuted fracture of shaft of left femur Patient/Caregiver Discharge Instructions Print Language: Azeri
--- NOTE | 2024-06-30 23:32 | XR_ITS ---
Examination: Left ankle 2 views TECHNIQUE: AP lateral left ankle 2 views Date and time: July 01, 2024 0032 hours INDICATIONS: Patient fell yesterday with injury to the ankle, ankle pain. FINDINGS: Severe osteopenia No acute fracture. No dislocation. IMPRESSION: No acute fracture
--- NOTE | 2024-06-30 23:32 | XR_ITS ---
Examination: Left foot 2 views Technique wavy lateral left foot 2 views July 01, 2024 at 12:35 AM INDICATIONS: Patient fell yesterday afternoon with injury foot, foot pain. FINDINGS: Severe osteopenia Nonstandard views No fracture detected IMPRESSION: No fracture detected Recommend short-term follow-up films as clinically warranted
--- NOTE | 2024-06-30 23:32 | XR_ITS ---
Examination:Left hip AP, lateral, AP pelvis 3 views Technique: Hip AP lateral, AP pelvis, 3 views Exam date and time:June 30, 2024 1159 hours INDICATIONS: Patient fell yesterday afternoon with injury to the left hip, left hip pain FINDINGS: Severe osteopenia. No left hip fracture or dislocation. Right hip bones of the pelvis intact IMPRESSION: No acute hip or pelvic fracture.
--- NOTE | 2024-06-30 23:32 | XR_ITS ---
Examination: Tibia-Fibula, left , 2 views Technique: Tibia-fibula AP lateral 2 views Date and time of exam: June 30, 2024 11:59 PM INDICATIONS: Patient fell yesterday with injury to lower leg, lower leg pain. FINDINGS: Severe osteopenia and Partial visualization of distal femoral shaft fracture. Tibia and fibula appear intact IMPRESSION: Tibia-fibula appear intact
--- NOTE | 2024-06-30 23:32 | XR_ITS ---
Examination: Left knee 2 views TECHNIQUE: AP lateral left knee 2 views Date and time: July 01, 2024 0039 hours INDICATIONS: Patient fell yesterday with injury to the knee, knee pain. FINDINGS: Partial visualization acute supracondylar fractures distal femoral shaft, posterior angulation, mild at the fracture site Patella tibia fibula appear intact IMPRESSION: Partial visualization fractures distal femoral shaft
--- NOTE | 2024-06-30 23:32 | XR_ITS ---
Examination: Left femur 2 views Technique within the lateral left femur 2 views Date and time: June 30, 2024 at 11:59 AM INDICATIONS: Patient fell today with injury to the leg, leg pain FINDINGS: Acute comminuted fractures distal femoral shaft. There is one 15 cm bone fragment which is displaced 12 mm from the main femoral shaft Condylar regions appear intact IMPRESSION: Acute comminuted fractures distal femoral shaft
[2024-06-30] MEDS: fentaNYL CIT INJ 50 mCg/ML AMP 2ML 100 MCG IVP (23:44)
[2024-06-30 23:50] VITALS: PULSE 76
[2024-06-30 23:52] VITALS: BP 99/74; PULSE 83; RESP 19; TEMP 36.6; O2SAT 100
[2024-06-30 23:57] LABS: Basophils % (Auto) 1 % (0-2.5); Eosinophils # (Auto) 0.1 Thou/mm3 (0.0-0.5); Eosinophils % (Auto) 2 % (0-10); Hematocrit 27.6 % (36.0-46.0); Immature Granulocytes % (Auto) 1 % (0-0); Immature Granulocytes Auto 0.06 Thou/mm3 (0.00-0.00); Lymphocytes # (Auto) 1.5 Thou/mm3 (1.0-4.8); Lymphocytes % (Auto) 26 % (10-50); Mean Corpuscular HGB Conc 29.3 g/dl (31.0-37.0); Mean Corpuscular Hemoglobin 27.8 pg (25.0-35.0); Mean Corpuscular Volume 95 fL (80-100); Monocytes # (Auto) 0.7 Thou/mm3 (0.0-0.8); Monocytes % (Auto) 12 % (0-12); Neutrophils # (Auto) 3.3 Thou/mm3 (1.8-7.7); Neutrophils % (Auto) 58 % (37-80); Nucleated Red Blood Cell % 0 /100 WBC (0); Platelet Count 227 Thou/mm3 (140-440); RDW Standard Deviation 59.2 fL (36.4-46.3); Red Blood Count 2.91 Miln/mm3 (4.00-5.20); White Blood Count 5.7 Thou/mm3 (3.6-11.0)
[2024-07-01 00:01] LABS: Hemoglobin 8.1 g/dL (12.0-16.0)
[2024-07-01 00:25] LABS: Alanine Aminotransferase 70 U/L (10-49); Albumin/Globulin Ratio 0.9 (1.2-2.2); Alkaline Phosphatase 220 U/L (46-116); Anion Gap 13 (7-16); Aspartate Amino Transferase 161 U/L (0-34); BUN/Creatinine Ratio 8 Ratio (12-20); Bilirubin,Total 0.4 mg/dL (0.3-1.2); Blood Urea Nitrogen 6 mg/dL (9-23); Calcium 7.7 mg/dL (8.3-10.6); Calcium (Corrected) 8.5 mg/dL (8.5-10.1); Carbon Dioxide 20.5 mMol/L (20.0-31.0); Chloride 108 mMol/L (98-107); Creatinine (Component) 0.8 mg/dL (0.6-1.3); Estimated Creatinine Clearance 93.3 mL/min (>60); Free T4 (Free Thyroxine) 0.76 ng/dL (0.89-1.76); Globulin 3.5 gm/dL (2.3-3.5); Glucose 143 mg/dL (74-106); Osmolality,Calculated 280 (275-295); Potassium 3.4 mMol/L (3.4-5.1); Sodium 141 mMol/L (136-145); Total Protein 6.5 gm/dL (5.7-8.2); eGFR > 60 See Note
[2024-07-01] MEDS: fentaNYL CIT INJ 50 mCg/ML AMP 2ML 100 MCG IVP (00:32)
[2024-07-01 00:41] LABS: INR 1.2 (0.9-1.3); Partial Thromboplastin Time 25.4 Seconds (22.0-36.0); Prothrombin Time 12.9 Seconds (9.0-12.2)
--- NOTE | 2024-07-01 01:36 | XR_ITS ---
Examination: CT left femur, without contrast. 2-D sagittal reconstructions. 2-D coronal reconstructions. 3-D reconstructions. Date and time of exam:July 01, 2024 0313 hours INDICATIONS: Patient fell yesterday with injury to the femur, femur fracture CTDI: vol (mGy):23 DLP: (mGycm):1500 Technique: Multiple 1.25 mm axial sections of the left femur have been obtained. 2-D sagittal and coronal reconstructions have been obtained. 3-D reconstructions have been obtained. Low dose protocols were performed. One or more of the following dose reduction techniques were used; automated exposure control, adjustment of the mA and/or KV according to patient size, use of iterative reconstruction technique. Findings: Acute comminuted fractures distal shaft of the femur On the AP view 18 mm offset of a major fracture fragment Femoral condyles intact Severe osteopenia Significant tricompartment knee osteoarthritis IMPRESSION: Acute comminuted fractures distal femoral shaft
--- NOTE | 2024-07-01 01:48 | PD.ORTHCON ---
HPI Consult details Reason for consultation narrative: Pain right thigh History of present illness: 64-year-old with multiple medical problems fell out of her electric wheelchair. She said she thinks it was turned on and injured her left femur she was not complaining of any pain in her upper extremities right lower extremity no complaints pain in her right or left ankle She is a nonambulator. Just recently she has been able to stand up but cannot take 1 step Past Medical History Past Medical History NEUROLOGIC: Negative Neurological Disorders, Dementia or Seizures CARDIAC: Positive Cardiac Disorders, Hypercholesterolemia, Deep Vein Thrombosis and Hypertension; Negative Atrial Fibrillation, Coronary Artery Disease or Congestive Heart Failure RESPIRATORY: Positive Chronic Obstructive Pulmonary Disease (COPD), Asthma, Bronchitis, Sleep Apnea, Smoking and Tobacco Use GASTROINTESTINAL: Positive Gastrointestinal Disorders, Cirrhosis, Diverticulitis, Diverticulosis, Hiatal Hernia and Gastroesophageal Reflux Disease; Negative Celiac Disease GENITOURINARY: Negative Genitourinary Disorders or Renal Disease REPRODUCTIVE: Negative Pelvic Inflammatory Disease MUSCULOSKELETAL: Positive Musculoskeletal Disorders, Arthritis, Osteoporosis, Degenerative Disk Disease and Fractures; Negative Muscular Dystrophy or Bone Cancer ENT: Negative Cataracts ENDOCRINE: Positive Endocrine Disorders and Hypothyroidism; Negative Diabetes Mellitus Type 1 or Diabetes Mellitus Type 2 HEMATOLOGIC: Positive Anemia; Negative Sickle Cell Disease PSYCHO/SOCIAL: Positive Recreational Drug Use, Depression and Anxiety OTHER HISTORY: Positive Falls, Blood Transfusions and Chicken Pox; Negative Autoimmune Disease, Down Syndrome, Developmental Delay, Blood Transfusion Reaction, Anesthesia Reactions, Organ Transplant, MRSA, VRSA, Vancomycin-Resistant Enterococci, Clostridium Difficile or Cancer Family History FAMILY HISTORY: Positive Family Cardiac Disorders and Family Cancer Surgical History SURGICAL: Positive Abdominal Surgery, Gastric Bypass Surgery, Lumpectomy and Section; Negative Cardiac Surgery, Endocrine Surgery, Thyroidectomy, Ear Surgery, Tympanostomy Tube, Eye Surgery, Nose Surgery, Oral Surgery, Tonsillectomy, Adenoidectomy, Cochlear Implant, Corneal Transplant, Throat Surgery, Tracheostomy, Nephrectomy, Joint Replacement, Neurologic Surgery, Brain Shunt or Organ Transplant Social History SMOKING STATUS: Current every day smoker SUBSTANCE USE: methamphetamine Meds Home Medications and Allergies Home Medications ?Medication ?Instructions ?Recorded ?Confirmed ?Type albuterol sulfate 90 mcg/actuation 2 inh inhalation Q6H PRN wheeze 10/27/22 06/20/24 History aerosol inhaler duloxetine 60 mg capsule,delayed 60 mg PO DAILY 10/27/22 06/20/24 History release atorvastatin 20 mg tablet 20 mg PO DAILY 02/01/24 06/20/24 History ergocalciferol (vitamin D2) 1,250 1,250 mcg PO QWEEK 05/18/24 06/20/24 History mcg (50,000 unit) capsule meloxicam 7.5 mg tablet 15 mg PO QDAY 05/18/24 06/20/24 History gabapentin 600 mg tablet 600 mg PO Q8H 06/01/24 06/20/24 History pantoprazole 40 mg tablet,delayed 40 mg PO DAILY 06/01/24 06/20/24 History release Allergies Allergy/AdvReac Type Severity Reaction Status Date / Time Penicillins Allergy Severe Anaphylaxis Verified 06/20/24 14:53 erythromycin base AdvReac Intermediate Abdominal Verified 06/20/24 14:53 Pain Exam Vital Signs Temp Pulse Resp BP Pulse Ox O2 Del Method O2 Flow Rate 98 F 83 19 99/74 100 Nasal Cannula 3 06/30/24 23:52 06/30/24 23:52 06/30/24 23:52 06/30/24 23:52 06/30/24 23:52 06/30/24 23:52 06/30/24 23:52 Blood pressure 99/74 Narrative Exam She is alert and oriented. She turns head [id number]. Partially edentulous. Able to lift arms elbows wrist hands fingers. No chest wall pain abdominal discomfort Examination of lower extremity shows that the right lower extremity is nice and straight and is able to move The left lower extremity is somewhat short and a little bit externally rotated. She has active flexion extension of left foot there is erythema of the skin both lower extremities it looks like a stasis dermatitis cannot totally rule out cellulitis but it does look more is a atopic dermatitis. Unable to feel PALS pulses however feet are nice and warm. Has an equinus deformity of the left foot. History of iatrogenic fall and x-ray suite number of years ago Results - Ortho Labs 06/30/24 23:41 06/30/24 23:41 Labs: Short CBC 06/30/24 Range/Units 23:41 WBC 5.7 (3.6-11.0) Thou/mm3 Hgb 8.1 L (12.0-16.0) g/dL Hct 27.6 L (36.0-46.0) % Plt Count 227 (140-440) Thou/mm3 BMP 06/30/24 23:41 Sodium 141 Potassium 3.4 Chloride 108 H Carbon Dioxide 20.5 BUN 6 L Creatinine 0.8 Glucose 143 H Calcium 7.7 L Liver Function 06/30/24 Range/Units 23:41 Total Bilirubin 0.4 (0.3-1.2) mg/dL AST 161 H (0-34) U/L ALT 70 H (10-49) U/L Alkaline Phosphatase 220 H (46-116) U/L Albumin 3.0 L (3.4-4.8) gm/dL Hemoglobin is 8.1 liver enzymes elevated most likely due to fatty liver glucose 143 Assessment & Plan Additional Assessment Additional comments: Comminuted middle distal third femur fracture that looks like it ends above the lateral epicondyle. Looks like there is 1 large butterfly fragment. Overall alignment is pretty good. It is a complex injury. She is a nonambulator. Plan Recommend CT scan of femur to include knee. Recent medial tibial plateau fracture very minimally depressed treated conservatively because she is not an ambulator. Did well with conservative management. But slightly recommend transfer to higher level of care this will be a complex femur to fix. She has truncal and limb obesity. Distal skin is red and erythematous most likely due to stasis dermatitis I doubt cellulitis. She is a very limited ambulator in fact she is a nonambulator just recently she has been able to stand with maximum assistance. I think there is a great reason to get her to a higher level of care because of the complexity in addition she has a history of unprovoked DVT. Emergent treatment can be in knee immobilizer and we put the largest one on. If no one will take her in transfer we can admit her here and try to do hospital to the hospital transfer. Easier to do ER to ER obviously
[2024-07-01] MEDS: fentaNYL CIT INJ 50 mCg/ML AMP 2ML IVP ×4 (01:49→06:45)
[2024-07-01 02:35] VITALS: BP 118/76; PULSE 106; RESP 18; TEMP 36.8; O2SAT 100
--- NOTE | 2024-07-01 02:45 | PC.LAC ---
Pt taken to CT via [facility].
--- NOTE | 2024-07-01 03:25 | PC.NURSE ---
Pt refused to have linens changed and repositioned a this time due to pain. Rates pain 10/10, will give pain medication as ordered. Call light within reach, plan of care ongoing.
--- NOTE | 2024-07-01 05:09 | PRELIM_ITS ---
CT left femur without intravenous contrast (axial sections with sagittal and coronal reformats) July 01, 2024 0313 hours Clinical History: Distal left femur fracture Comparison:Reference is made to the prior report dated April Findings: There is an acute comminuted displaced fracture of the distal shaft of the femur. There is severe osteoarthritis of the knee. No dislocation is seen. There is osteopenia.The visualized muscles are unremarkable with maintained intermuscular fat planes. There is extensive subcutaneoussoft tissue edema of the thigh. Impression: Acute comminuted displaced fracture of the distal shaft of the femur. Subcutaneoussoft tissue edema of the thigh. Severe osteoarthritis of the knee. Osteopenia. Report Electronically Signed By: Gisella Livingston 07/01/2024 5:08:57 AM [EST]
[2024-07-01 05:34] VITALS: BP 112/76; PULSE 113; RESP 14; O2SAT 98
--- NOTE | 2024-07-01 06:04 | PC.NURSE ---
Packet faxed over to [facility], they received packet and would like to inquire to MD Miguel. Lulu returned call Accepting Information Orthopedist Rico ODEN ED to ED Report to be called to [phone]. Packet completed, disk in envelope. will setup EMS transfer
[2024-07-01 06:05] VITALS: BP 119/83; PULSE 110; RESP 18; TEMP 37.2; O2SAT 100
--- NOTE | 2024-07-01 07:06 | PC.CC ---
MELANYWDanae was consulted regarding setting up transportation from ER to [facility]. ASW set up transportation with [facility] ETA p/u [id number].
--- NOTE | 2024-07-01 07:13 | PC.NURSE ---
Report given to nurse at [facility] via telephone.
[2024-07-01 07:22] VITALS: BP 131/78; PULSE 116; RESP 18; TEMP 37.2; O2SAT 100
--- NOTE | 2024-07-01 07:26 | PC.NURSE ---
Report received from pm nurse, patient lying in [facility] c/o 10/10 pain to left lower leg. Patient awaiting transfer to [facility], new orders received from Dr. Saini
[2024-07-01] MEDS: MORPHINE SULF INJ 10 MG/ML VIAL 8 MG IVP (07:38)
[2024-07-01 08:22] VITALS: BP 117/72; PULSE 114; RESP 18; TEMP 37.2; O2SAT 97
--- NOTE | 2024-07-01 08:47 | PC.NURSE ---
Report called to Bridger CHAO at [facility], EMS here to tranport patient to their facility, report given to Bryn, senior information security architect.
== END 2024-07-01 09:00 | disposition short-term general hospital (02) ==
PROVIDERS: Emergency Provider Emergency Medicine
DX: S72.352A Displaced comminuted fracture of shaft of left femur, initial encounter for closed fracture (principal); W22.8XXA Striking against or struck by other objects, initial encounter; K70.30 Alcoholic cirrhosis of liver without ascites; E03.9 Hypothyroidism, unspecified; Z86.718 Personal history of other venous thrombosis and embolism; F32.A Depression, unspecified
CPT/HCPCS: 36415; 73502; 73552; 73560; 73590; 73600; 73620; 73700; 80053; 84439; 85025; 85610; 85730; 96374; 96375; 96376; 99285; J2270; J3010

== ENCOUNTER 2024-08-03 13:51 | Outpatient (AMB) | payer MEDICAID, SELFPAY ==
[2024-08-03 14:17] VITALS: BP 123/82; PULSE 98; RESP 20; TEMP 36.4; O2SAT 95; BMI 42.2
--- NOTE | 2024-08-03 14:17 | ACNOTE_ITS ---
Vital Signs 08/03/24 14:17 Height 1.63 m Height Method Stated Weight 111.584 kg Weight Measurement Method Standing Scale BMI 42.2 BP 123/82 Blood Pressure Source Automatic Cuff Blood Pressure Location Right Upper Arm Position Sitting Respiration 20 Pulse 98 Pulse Source Monitor Temp 97.6 F Temp Source Oral Pulse Oximetry (%) 95 Oxygen Delivery Method Room Air Allergies/Meds Allergies & Medications Allergies Penicillins Allergy (Severe, Verified 08/03/24 14:18) Anaphylaxis erythromycin base Adverse Reaction (Intermediate, Verified 08/03/24 14:18) Abdominal Pain Medication Reconciliation albuterol sulfate 90 mcg/actuation aerosol inhaler 2 inh inhalation Q6H PRN wheeze 10/27/22 [History Confirmed 08/03/24] duloxetine 60 mg capsule,delayed release 60 mg PO DAILY 10/27/22 [History Confirmed 08/03/24] apixaban 5 mg tablet (Eliquis) 5 mg PO BID #60 tabs 02/14/23 [Rx Confirmed 08/03/24] atorvastatin 20 mg tablet 20 mg PO DAILY 02/01/24 [History Confirmed 08/03/24] naloxone 4 mg/actuation nasal spray (Narcan) 4 mg intranasal Q2M PRN opioid overdose #2 ea 02/03/24 [Rx Confirmed 08/03/24] ergocalciferol (vitamin D2) 1,250 mcg (50,000 unit) capsule 1,250 mcg PO QWEEK 05/18/24 [History Confirmed 08/03/24] meloxicam 7.5 mg tablet 15 mg PO QDAY 05/18/24 [History Confirmed 08/03/24] furosemide 40 mg tablet 40 mg PO BID #60 tabs 05/25/24 [Rx Confirmed 08/03/24] thiamine HCl (vitamin B1) 100 mg tablet 100 mg PO QDAY #30 tabs 05/25/24 [Rx Confirmed 08/03/24] tramadol 50 mg tablet 50 mg PO Q8H PRN pain #14 tabs 05/25/24 [Rx Confirmed 08/03/24] gabapentin 600 mg tablet 600 mg PO Q8H 06/01/24 [History Confirmed 08/03/24] pantoprazole 40 mg tablet,delayed release 40 mg PO DAILY 06/01/24 [History Confirmed 08/03/24] fluconazole 100 mg tablet (Diflucan) 150 mg (1.5 x 100 mg) PO QDAY #2 tabs 06/20/24 [Rx Confirmed 08/03/24] levothyroxine 50 mcg capsule 50 mcg PO AC #60 caps 06/29/24 [Rx Confirmed 08/03/24] pregabalin 100 mg capsule 100 mg PO TID #90 caps 06/29/24 [Rx Confirmed 08/03/24] spironolactone 50 mg tablet 50 mg PO QAM #30 tabs 06/29/24 [Rx Confirmed 08/03/24] hydrocodone 5 mg-acetaminophen 325 mg tablet 1 tab PO Q8H PRN pain #14 tabs 08/09/24 [Rx] MA Intake Visit Data Collection New Patient or Established: Established Patient (seen at [facility] within 3 years) Seen by Clinical Staff ONLY (RN/MA): No Reason for Visit:: FOLLOW UP Pain Present Currently: Yes Pain Location: Thigh (LEFT) Pain scale:: 9 Pain Scale Used: [employer] Worker Required: No PCP or OBGYN visit in last 3 months: Yes Hx Now: No Do You Feel Safe at Home: Yes Authorities Contacted: N/A Smoking Status Smoking Status: Current every day smoker Cessation Counseling Provided: EDUARDO was advised that quitting smoking is the single most important factor to protect the health of themselves and their family. Discussed the benefits of quitting smoking with patient. Encouraged patient to quit smoking and provided Cessation assistance materials and resources. Tobacco Use: Cigarette Years smoked: 30 Are you interested in quitting?: No Immunization / Flu Flu Vaccine in the Last 12 Months: No Flu Vaccine Exclusion Criteria: No Exclusion Criteria Past Medical History Past Medical History NEUROLOGIC: Negative Neurological Disorders, Dementia or Seizures CARDIAC: Positive Cardiac Disorders, Hypercholesterolemia, Deep Vein Thrombosis and Hypertension; Negative Atrial Fibrillation, Coronary Artery Disease or Congestive Heart Failure RESPIRATORY: Positive Chronic Obstructive Pulmonary Disease (COPD), Asthma, Bronchitis, Sleep Apnea, Smoking and Tobacco Use GASTROINTESTINAL: Positive Gastrointestinal Disorders, Cirrhosis, Diverticulitis, Diverticulosis, Hiatal Hernia and Gastroesophageal Reflux Disease; Negative Celiac Disease GENITOURINARY: Negative Genitourinary Disorders or Renal Disease REPRODUCTIVE: Negative Pelvic Inflammatory Disease MUSCULOSKELETAL: Positive Arthritis, Osteoporosis, Degenerative Disk Disease and Fractures; Negative Muscular Dystrophy or Bone Cancer ENT: Negative Cataracts ENDOCRINE: Positive Endocrine Disorders and Hypothyroidism; Negative Diabetes Mellitus Type 1 or Diabetes Mellitus Type 2 HEMATOLOGIC: Positive Anemia; Negative Sickle Cell Disease PSYCHO/SOCIAL: Positive Recreational Drug Use, Depression and Anxiety OTHER HISTORY: Positive Falls, Blood Transfusions and Chicken Pox; Negative Autoimmune Disease, Down Syndrome, Developmental Delay, Blood Transfusion Reaction, Anesthesia Reactions, Organ Transplant, MRSA, VRSA, Vancomycin-Resistant Enterococci, Clostridium Difficile or Cancer Family History FAMILY HISTORY: Positive Family Cardiac Disorders and Family Cancer Surgical History SURGICAL: Negative Thyroidectomy or Organ Transplant Social History SMOKING STATUS: Smoking status: Current every day smoker PACK YEARS: Pack-Years: 46 ALCOHOL: Alcohol Intake: Current ALCOHOL FREQUENCY: Alcohol Intake Frequency: 0-2 Drinks per Day HOUSING: Housing: House LIVES WITH: Lives With: Alone Patient Portal Questionaires PHQ-9 PHQ-2 Over the last 2 weeks, how often have you been bothered by any of the following problems? 1. Little interest or pleasure in doing things: not at all 2. Feeling down, depressed, or hopeless: not at all Total score: 0 PHQ-9 3. Trouble falling or staying asleep, or sleeping too much: Not at all 4. Feeling tired or having little energy: Not at all 5. Poor appetite or overeating: Not at all 6. Feeling bad about yourself - or that you are a failure or have let yourself or your family down: Not at all 7. Trouble concentrating on things, such as reading the newspaper or watching television: Not at all 8. Moving or speaking so slowly that other people could have noticed? - Or the opposite - being so fidgety or restless that you have been moving around a lot more than usual: not at all 9. Thoughts that you would be better off or of hurting yourself in some way: Not at all Total score: 0 Source: Developed by Drs. Jeff Brock, Sharon East, Andre Diaz and colleagues, with an educational candice from [employer]. Depression screen completed yes Social History Living Situation History Housing: House Housing Other:: Pt short term stay with [facility] Tobacco History Smoking Status: Current every day smoker Packs per Day: 0.5 Pack-Years: 46 Number of Smoking Years (pipe): 45 Alcohol History Alcohol Intake: Current Alcohol Intake Frequency: 0-2 Drinks per Day Substance Use History Substance Use: meth quit 4 years Domestic Abuse History Do You Feel Safe at Home: Yes Review of Systems Report any current symptoms Only answer those that you have currently: Past Medical History Past Medical History Have you ever been diagnosed with any of the following: Neurological Problems Dementia: No Seizures: No Cardiology Problems Atrial Fibrillation: No Coronary Artery Disease: No Hypercholesterolemia: Yes Congestive Heart Failure: No Deep Vein Thrombosis: Yes Hypertension: Yes Respiratory Problems Chronic Obstructive Pulmonary Disease (COPD): Yes Asthma: Yes Bronchitis: Yes Sleep Apnea: Yes Smoking: Yes Tobacco Use: Yes Stomache/Intestinal Problems Cirrhosis: Yes Celiac Disease: No Diverticulitis: Yes Diverticulosis: Yes Hiatal Hernia: Yes Gastroesophageal Reflux Disease: Yes Genital/Urinary Problems Renal Disease: No Reproductive Problems Pelvic Inflammatory Disease: No Musculoskeletal Problems Muscular Dystrophy: No Bone Cancer: No Arthritis: Yes Osteoporosis: Yes Degenerative Disk Disease: Yes Fractures: Yes Head,Eye,Nose,Throat Problems Cataracts: No Endocrine Problems Diabetes Mellitus Type 1: No Diabetes Mellitus Type 2: No Hypothyroidism: Yes Blood Problems Anemia: Yes Sickle Cell Disease: No Psychologic Problems Recreational Drug Use: Yes Depression: Yes Anxiety: Yes Other Problems Autoimmune Disease: No Down Syndrome: No Developmental Delay: No Falls: Yes Blood Transfusions: Yes Blood Transfusion Reaction: No Anesthesia Reactions: No Organ Transplant: No MRSA: No VRSA: No Vancomycin-Resistant Enterococci: No Chicken Pox: Yes Clostridium Difficile: No Cancer: No Surgical History Thyroidectomy: No History of Present Illness HPI Narrative Miss Caban a 64 years old female with PMH of alcoholic liver cirrhosis, 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 Patient was recently discharged from [facility] after treatment for b/l LE cellulitis. Patient had completed course of Cefalexin and doxycycline after hospital discharge on 06/11/24. For the last x2 days patient has been experiencing vulvaginal erythema and pain. Patient denied discharge,dysuria, fever, chills, diarrhea or other associated symptoms. Per patient, she has history of having yeast infection post antibiotic treatments. Perscription for Diflucan 150 mg X1 with refills sent to pharmacy. Patient advised not to take refills unless no improvement in x1 week. Patient has upcoming appointment with Dr. Ly on 06/29/24. 06/29/2024: Came for a routine follow-up visit. Recently saw Dr. Singh for follow-up on hospital admission and yeast infection. As of today, patient denies any other complaints, reported that her vulvovaginal erythema and pain sunsided with fluconazole and also noted that her bilateral lower extremity swelling is decreasing. But still continued to smoke cigarettes, half a pack per day and 1/2 drinks per day. 08/03/2024 : Came for follow up visit after discharge from rehab. Patient had a recent history of fall after sliding from wheel chair during sleep and went to the ED on 06/30/2024 following which she was diagnosed to have acute comminuted displaced fracture of the distal shaft of the left femur. Later she is transferred to [facility] for further treatment and patient underwent repair, placed in rehab center and got discharged on 08/03/2024 from rehab. Complaining of tiredness after waking up in the morning. Denies any other complaints except for pain at the site of fracture. Stopped alcohol but still continuing to smoke. Review of Systems Review of Systems Systems Reviewed: All systems reviewed, normal except as documented Objective/Exam Narrative Physical exam: General: Awake. obese HEENT: Normocephalic, atraumatic, mucous membranes moist. Heart: Regular rate and rhythm, no murmurs. Lungs: Clear to auscultation with no wheezing or crackles. Abdomen: Soft, nondistended, nontender, positive bowel sounds. ?No guarding or rebound tenderness. Neurologic: Alert and oriented x3, no gross neurological deficit, and patient able to move all 4 extremities. Extremities: B/L trace pedal edema Skin: No rash or ecchymoses. Assessment & Plan Diagnosis / Problem List (1) Fracture of femur, distal, left, closed: Status: Acute Qualifiers: Encounter type: subsequent encounter Fracture healing: with routine healing Fracture morphology: unspecified fracture morphology Qualified Code(s): S72.402D - Unspecified fracture of lower end of left femur, subsequent encounter for closed fracture with routine healing Assessment & Plan: Came for follow up visit after discharge from rehab. Patient had a recent history of fall after sliding from wheel chair during sleep and went to the ED on 06/30/2024 following which she was diagnosed to have acute comminuted displaced fracture of the distal shaft of the left femur. Later she is transferred to [facility] for further treatment and patient underwent repair, placed in rehab center and got discharged on 08/03/2024 from rehab Plan: - Recovering well - Complaining of pain at the site of fracture repair and requested for opioids (2) Sleep apnea with hypersomnolence: Status: Acute Assessment & Plan: Patient had BMI of 42.2 Complaining of tiredness after waking up in the morning. Plan: Will refer for sleep study (3) History of cirrhosis of liver: Status: Acute Assessment & Plan: Had alcohol use disorder and obesity that could be contributing to liver cirrhosis Noted to have irregular contour of liver with splenomegaly on CT Abdomen on 05/2024 Denies bleeding manifestations Plan: Recommended alcohol cessation and weight loss Recommended to continue lasix and aldactone, will increase the dose of aldactone on follow up visits (4) Peripheral neuropathy: Status: Acute Qualifiers: Peripheral neuropathy type: polyneuropathy, alcohol-induced Qualified Code(s): G62.1 - Alcoholic polyneuropathy Assessment & Plan: still c/o pain and paresthesias in the lower extremities, likely alcohol induced polyneuropathy and patient still continued to drink alcohol but reduced the quantity Plan: -Recommended alcohol cessation and counselling is given -Recommended to take multivitamin supplementation -Recommended to continue Gabapentin and pregabalin (5) Hypothyroid: Status: Acute Qualifiers: Hypothyroidism type: acquired Qualified Code(s): E03.9 - Hypothyroidism, unspecified Assessment & Plan: - Patient is currently on Levothyroxine 50mcg - Tsh as of 05/2024 is within normal limits Plan: - Recommended to continue the same dosage as of now and educated on weight loss - Will repeat TSH in 6 months (6) DVT (deep venous thrombosis): Status: Inactive Qualifiers: Affected thrombotic vein of extremity: other lower extremity vein Chronicity: unspecified DVT location: lower extremity Laterality: unspecified laterality Qualified Code(s): I82.499 - Acute embolism and thrombosis of other specified deep vein of unspecified lower extremity Assessment & Plan: -Patient has history of unprovoked DVT 5 years ago and is following vascular surgeon Dr. Caban -Currently on eliquis 5 mg p.o. bid -Had recent visit with Dr. Caban in th last 6 months and he recommended to continue it Plan: - Discussed about risks and benefits of anticoagulation in the setting of alcohol usage and recent falls - Recommended to follow up with Dr. caban for reconsideration of discontinuation of eliquis Orders: Referrals Sleep Study G47.10 - Hypersomnia, unspecified, G47.30 - Sleep apnea, unspeci fied Physical Therapy - Referral S72.402D - Unspecified fracture of lower end of left femur, subsequent encounter for closed fracture with routine healing Office Procedures [facility] Level of Care Nursing/Assessment Patient Status: Established Patient Nursing Assessment/Reassessment: Medication Reconciliation, Update PMH in EMR and Vital Signs Coordination of Care: Complex Care and Chronic Disease 1-5, Consent,records obtained, informed consent, Education Simp Pt/Fam, Lab and Imaging orders, Results/Orders obtained and Staff clarify orders Established Patient Charge Established Patient Point Assignment: 105 Established Patient Point Charge: Level 3 (80-115)
== END 2024-08-03 14:50 | disposition home or self-care (01) ==
LOC: HODAHC 13:51
PROVIDERS: Supervising Provider Internal Medicine
DX: S72.352D Displaced comminuted fracture of shaft of left femur, subsequent encounter for closed fracture with routine healing (principal); W19.XXXD Unspecified fall, subsequent encounter; G47.30 Sleep apnea, unspecified; G47.10 Hypersomnia, unspecified; K70.30 Alcoholic cirrhosis of liver without ascites; G62.1 Alcoholic polyneuropathy; E03.9 Hypothyroidism, unspecified; Z86.718 Personal history of other venous thrombosis and embolism; Z79.01 Long term (current) use of anticoagulants
CPT/HCPCS: 99213; G0463

== ENCOUNTER 2024-09-04 09:12 | Outpatient (AMB) | payer MEDICAID, SELFPAY ==
[2024-09-04 09:35] VITALS: BP 102/76; PULSE 91; RESP 18; TEMP 36.6; O2SAT 98
--- NOTE | 2024-09-04 09:35 | ACNOTE_ITS ---
Vital Signs 09/04/24 09:35 Height 1.63 m Height Method Stated Weight Measurement Method Wheelchair BP 102/76 Blood Pressure Source Automatic Cuff Blood Pressure Location Right Upper Arm Position Sitting Respiration 18 Pulse 91 Pulse Source Monitor Temp 97.8 F Temp Source Temporal Artery Scan Pulse Oximetry (%) 98 Oxygen Delivery Method Room Air Allergies/Meds Allergies & Medications Allergies Penicillins Allergy (Severe, Verified 09/04/24 09:43) Anaphylaxis erythromycin base Adverse Reaction (Intermediate, Verified 09/04/24 09:43) Abdominal Pain MA Intake Visit Data Collection New Patient or Established: Established Patient (seen at [facility] within 3 years) Seen by Clinical Staff ONLY (RN/MA): No Pain Present Currently: No Pain scale:: 0 Pain Scale Used: Curtis-Goetz/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 Discussed the benefits of quitting smoking with patient. Encouraged patient to quit smoking and provided Cessation assistance materials and resources. Tobacco Use: Cigarette Years smoked: 45 Are you interested in quitting?: Yes Would you like additional Smoking Cessation Counseling?: No Immunization / Flu Flu Vaccine in the Last 12 Months: No Flu Vaccine Exclusion Criteria: No Exclusion Criteria Past Medical History Past Medical History NEUROLOGIC: Negative Neurological Disorders, Dementia or Seizures CARDIAC: Positive Cardiac Disorders, Hypercholesterolemia, Deep Vein Thrombosis and Hypertension; Negative Atrial Fibrillation, Coronary Artery Disease or Congestive Heart Failure RESPIRATORY: Positive Chronic Obstructive Pulmonary Disease (COPD), Asthma, Bronchitis, Sleep Apnea, Smoking and Tobacco Use GASTROINTESTINAL: Positive Gastrointestinal Disorders, Cirrhosis, Diverticulitis, Diverticulosis, Hiatal Hernia and Gastroesophageal Reflux Disease; Negative Celiac Disease GENITOURINARY: Negative Genitourinary Disorders or Renal Disease REPRODUCTIVE: Negative Pelvic Inflammatory Disease MUSCULOSKELETAL: Positive Arthritis, Osteoporosis, Degenerative Disk Disease and Fractures; Negative Muscular Dystrophy or Bone Cancer ENT: Negative Cataracts ENDOCRINE: Positive Endocrine Disorders and Hypothyroidism; Negative Diabetes Mellitus Type 1 or Diabetes Mellitus Type 2 HEMATOLOGIC: Positive Anemia; Negative Sickle Cell Disease PSYCHO/SOCIAL: Positive Recreational Drug Use, Depression and Anxiety OTHER HISTORY: Positive Falls, Blood Transfusions and Chicken Pox; Negative Autoimmune Disease, Down Syndrome, Developmental Delay, Blood Transfusion Reaction, Anesthesia Reactions, Organ Transplant, MRSA, VRSA, Vancomycin-Resistant Enterococci, Clostridium Difficile or Cancer Family History FAMILY HISTORY: Positive Family Cardiac Disorders and Family Cancer Surgical History SURGICAL: Negative Thyroidectomy or Organ Transplant Social History SMOKING STATUS: Smoking status: Current every day smoker PACK YEARS: Pack-Years: 46 ALCOHOL: Alcohol Intake: Current ALCOHOL FREQUENCY: Alcohol Intake Frequency: 0-2 Drinks per Day HOUSING: Housing: House LIVES WITH: Lives With: Alone Patient Portal Questionaires PHQ-9 PHQ-2 Over the last 2 weeks, how often have you been bothered by any of the following problems? 1. Little interest or pleasure in doing things: not at all PHQ-9 8. Moving or speaking so slowly that other people could have noticed? - Or the opposite - being so fidgety or restless that you have been moving around a lot more than usual: not at all Source: Developed by Drs. Jeff Brock, Sharon East, Andre Diaz and colleagues, with an educational candice from [employer]. Social History Living Situation History Housing: House Housing Other:: Pt short term stay with [facility] Tobacco History Smoking Status: Current every day smoker Packs per Day: 0.5 Pack-Years: 46 Number of Smoking Years (pipe): 45 Alcohol History Alcohol Intake: Current Alcohol Intake Frequency: 0-2 Drinks per Day Substance Use History Substance Use: meth quit 4 years Domestic Abuse History Do You Feel Safe at Home: Yes Review of Systems Report any current symptoms Only answer those that you have currently: Past Medical History Past Medical History Have you ever been diagnosed with any of the following: Neurological Problems Dementia: No Seizures: No Cardiology Problems Atrial Fibrillation: No Coronary Artery Disease: No Hypercholesterolemia: Yes Congestive Heart Failure: No Deep Vein Thrombosis: Yes Hypertension: Yes Respiratory Problems Chronic Obstructive Pulmonary Disease (COPD): Yes Asthma: Yes Bronchitis: Yes Sleep Apnea: Yes Smoking: Yes Tobacco Use: Yes Stomache/Intestinal Problems Cirrhosis: Yes Celiac Disease: No Diverticulitis: Yes Diverticulosis: Yes Hiatal Hernia: Yes Gastroesophageal Reflux Disease: Yes Genital/Urinary Problems Renal Disease: No Reproductive Problems Pelvic Inflammatory Disease: No Musculoskeletal Problems Muscular Dystrophy: No Bone Cancer: No Arthritis: Yes Osteoporosis: Yes Degenerative Disk Disease: Yes Fractures: Yes Head,Eye,Nose,Throat Problems Cataracts: No Endocrine Problems Diabetes Mellitus Type 1: No Diabetes Mellitus Type 2: No Hypothyroidism: Yes Blood Problems Anemia: Yes Sickle Cell Disease: No Psychologic Problems Recreational Drug Use: Yes Depression: Yes Anxiety: Yes Other Problems Autoimmune Disease: No Down Syndrome: No Developmental Delay: No Falls: Yes Blood Transfusions: Yes Blood Transfusion Reaction: No Anesthesia Reactions: No Organ Transplant: No MRSA: No VRSA: No Vancomycin-Resistant Enterococci: No Chicken Pox: Yes Clostridium Difficile: No Cancer: No Surgical History Thyroidectomy: No History of Present Illness HPI Narrative Miss Caban a 64 years old female with PMH of alcoholic liver cirrhosis, 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 Patient was recently discharged from [facility] after treatment for b/l LE cellulitis. Patient had completed course of Cefalexin and doxycycline after hospital discharge on 06/11/24. For the last x2 days patient has been experiencing vulvaginal erythema and pain. Patient denied discharge,dysuria, fever, chills, diarrhea or other associated symptoms. Per patient, she has history of having yeast infection post antibiotic treatments. Perscription for Diflucan 150 mg X1 with refills sent to pharmacy. Patient advised not to take refills unless no improvement in x1 week. Patient has upcoming appointment with Dr. Ly on 06/29/24. 06/29/2024: Came for a routine follow-up visit. Recently saw Dr. Singh for follow-up on hospital admission and yeast infection. As of today, patient denies any other complaints, reported that her vulvovaginal erythema and pain sunsided with fluconazole and also noted that her bilateral lower extremity swelling is decreasing. But still continued to smoke cigarettes, half a pack per day and 1/2 drinks per day. 08/03/2024 : Came for follow up visit after discharge from rehab. Patient had a recent history of fall after sliding from wheel chair during sleep and went to the ED on 06/30/2024 following which she was diagnosed to have acute comminuted displaced fracture of the distal shaft of the left femur. Later she is transferred to [facility] for further treatment and patient underwent repair, placed in rehab center and got discharged on 08/03/2024 from rehab. Complaining of tiredness after waking up in the morning. Denies any other complaints except for pain at the site of fracture. Stopped alcohol but still continuing to smoke. 09/04/2024: Came for a routine follow-up visit. Recovering well from the femoral fracture. Still pending to have physical therapy and sleep study. Otherwise patient is doing well and denies pedal edema, orthopnea, PND, shortness of breath. Wearing compression stockings and brace for her left foot drop. Compliant with all her medications and taking furosemide-spironolactone once daily in the morning. Still continued to smoke 2 cigarettes/day and 2 beers in 1 or 2 days and hard liquor once in a while. Educated on alcohol cessation and smoking cessation. Endorsed that she is following with Dr. Denton in [place] for her heart function. Reported that she would like to have a tax services professional in [place]. Also continues to follow-up with Dr. Caban for her previous history of DVT, continued to take Eliquis. Interested in weight loss, but due to foot drop and fracture, not able to do physical activity for which she requested a weight loss medication. Had a mental health follow-up visit on coming Tuesday. Will do a mammogram as patient had previous history of mass in t he left breast, BI-RADS 2. Will repeat labs. Also had appointment with her orthopedic surgeon, Dr. Gilmore in the coming week. Review of Systems Review of Systems Systems Reviewed: All systems reviewed, normal except as documented Objective/Exam Narrative Physical exam: General: Awake. Obese. HEENT: Normocephalic, atraumatic, mucous membranes moist. Heart: Regular rate and rhythm, no murmurs. Lungs: Clear to auscultation with no wheezing or crackles. Abdomen: Soft, nondistended, nontender, positive bowel sounds. ?No guarding or rebound tenderness. Neurologic: Alert and oriented x3, no gross neurological deficit, and patient able to move all 4 extremities. Extremities: No edema. Noted left foot drop Skin: No rash or ecchymoses. Assessment & Plan Diagnosis / Problem List (1) Obesities, morbid: Status: Acute Assessment & Plan: Patient has BMI of 42.2 Had a history of wheelchair-bound because of severe back problems, left foot drop and recent femoral fracture Also developed liver cirrhosis which could be multifactorial from alcohol intake and obesity Could not lose weight despite dietary modifications Plan: - Recommended dietary and lifestyle modifications - Patient cannot do physical activity in the setting of left foot drop, chronic back pain, recent femoral fracture - Will start on Mounjaro 2.5 Mg once a week and will titrate the dose based on the patient's tolerance (2) Sleep apnea with hypersomnolence: Status: Acute Assessment & Plan: Patient had BMI of 42.2 Complaining of tiredness after waking up in the morning. Plan: Referred for sleep study, pending Will order Mounjaro for weight loss as it helps for AGUSTIN (3) Mammographic fibroglandular density, bilateral breasts: Status: Acute Assessment & Plan: Found to have bilateral fibroglandular density on mammogram in 07/2023 BI-RADS 2 Plan: Will order repeat follow-up mammogram because of abnormality in 07/2023 (4) Fracture of femur, distal, left, closed: Status: Acute Qualifiers: Encounter type: subsequent encounter Fracture morphology: unspecified fracture morphology Fracture healing: with routine healing Qualified Code(s): S72.402D - Unspecified fracture of lower end of left femur, subsequent encounter for closed fracture with routine healing Assessment & Plan: Came for follow up visit Patient had a recent history of fall after sliding from wheel chair during sleep and went to the ED on 06/30/2024 following which she was diagnosed to have acute comminuted displaced fracture of the distal shaft of the left femur. Later she is transferred to [facility] for further treatment and patient underwent repair, placed in rehab center and got discharged on 08/03/2024 from rehab Plan: - Recovering well - Complaining of severe excruciating pain at the site of fracture repair especially when she tries to mobilize and requested for norco refill. (5) History of cirrhosis of liver: Status: Acute Assessment & Plan: Had alcohol use disorder and obesity that could be contributing to liver cirrhosis Noted to have irregular contour of liver with splenomegaly on CT Abdomen on 05/2024 Denies bleeding manifestations Plan: Recommended alcohol cessation and weight loss Recommended to continue lasix and aldactone, will increase the dose of aldactone on follow up visits (6) Peripheral neuropathy: Status: Acute Qualifiers: Peripheral neuropathy type: polyneuropathy, alcohol-induced Qualified Code(s): G62.1 - Alcoholic polyneuropathy Assessment & Plan: still c/o pain and paresthesias in the lower extremities, likely alcohol induced polyneuropathy and patient still continued to drink alcohol but reduced the quantity Plan: -Recommended alcohol cessation and counselling is given -Recommended to take multivitamin supplementation -Recommended to continue pregabalin (7) Hypothyroid: Status: Acute Qualifiers: Hypothyroidism type: acquired Qualified Code(s): E03.9 - Hypothyroidism, unspecified Assessment & Plan: - Patient is currently on Levothyroxine 50mcg - Tsh as of 05/2024 is within normal limits Plan: - Recommended to continue the same dosage as of now and educated on weight loss - Will repeat TSH in 6 months (8) DVT (deep venous thrombosis): Status: Inactive Qualifiers: DVT location: lower extremity Affected thrombotic vein of extremity: other lower extremity vein Chronicity: unspecified Laterality: unspecified laterality Qualified Code(s): I82.499 - Acute embolism and thrombosis of other specified deep vein of unspecified lower extremity Assessment & Plan: -Patient has history of unprovoked DVT 5 years ago and is following vascular surgeon Dr. Caban -Currently on eliquis 5 mg p.o. bid -Had recent visit with Dr. Caban in th last 6 months and he recommended to continue it Plan: - Discussed about risks and benefits of anticoagulation in the setting of alcohol usage and recent falls - Recommended to follow up with Dr. caban for reconsideration of discontinuation of eliquis Office Procedures [facility] Level of Care Nursing/Assessment Patient Status: Established Patient Nursing Assessment/Reassessment: Medication Reconciliation, Update PMH in EMR and Vital Signs Coordination of Care: Complex Care and Chronic Disease 1-5, Consent,records obtained, informed consent, Education Simp Pt/Fam and Staff clarify orders Established Patient Charge Established Patient Point Assignment: 85 Established Patient Point Charge: EP Level 3 (80-115)
== END 2024-09-04 10:47 | disposition home or self-care (01) ==
LOC: HODAHC 09:12
PROVIDERS: Supervising Provider Internal Medicine
DX: E66.01 Morbid (severe) obesity due to excess calories (principal); Z68.41 Body mass index [BMI] 40.0-44.9, adult; G47.30 Sleep apnea, unspecified; R92.323 Mammographic fibroglandular density, bilateral breasts; S72.402D Unspecified fracture of lower end of left femur, subsequent encounter for closed fracture with routine healing; W19.XXXD Unspecified fall, subsequent encounter; K74.60 Unspecified cirrhosis of liver; G62.1 Alcoholic polyneuropathy; E03.9 Hypothyroidism, unspecified; Z86.718 Personal history of other venous thrombosis and embolism; Z79.01 Long term (current) use of anticoagulants; Z71.6 Tobacco abuse counseling
CPT/HCPCS: 99213; G0463

== ENCOUNTER → 2024-09-13 | Outpatient (CLI) | payer MEDICAID, SELFPAY ==
--- NOTE | 2024-09-13 12:08 | XR_ITS ---
Examination: Knee, left , 3 views Technique: Knee AP, lateral, oblique 3 views Date and time of exam: September 13, 2024 1320 hours INDICATIONS: Left knee pain, status post knee surgery June 2024 FINDINGS: Severe osteopenia Significant healing fracture distal femur with stable alignment Significant osteoarthritis medial and patellofemoral joints No acute fracture IMPRESSION: Significant osteoarthritis medial and patellofemoral joints
--- NOTE | 2024-09-13 12:52 | XR_ITS ---
Examination: Left femur 2 views Technique one AP lateral left femur 2 views Date and time: September 13, 2024 1325 hours Comparison June 30, 2024 INDICATIONS: Status post operative reduction internal fixation comminuted fractures distal femoral shaft June 2024 FINDINGS: Significant healing fractures distal femoral shaft with satisfactory alignment IMPRESSION: Significant healing fractures distal femoral shaft with satisfactory alignment
== END | disposition home or self-care (01) ==
LOC: SDIM 11:58
PROVIDERS: Referring Provider Orthopaedic Surgery; Visit Provider Orthopaedic Surgery
DX: S72.351A Displaced comminuted fracture of shaft of right femur, initial encounter for closed fracture (principal); W18.39XA Other fall on same level, initial encounter; M17.12 Unilateral primary osteoarthritis, left knee
CPT/HCPCS: 73552; 73562

== ENCOUNTER 2024-10-23 09:28 | Outpatient (AMB) | payer MEDICAID, SELFPAY ==
--- NOTE | 2024-10-23 09:47 | PD.RESCLINIC ---
Vital Signs 10/23/24 09:48 Height 1.63 m Height Method Stated Weight Measurement Method Wheelchair BP 115/75 Blood Pressure Source Automatic Cuff Blood Pressure Location Right Upper Arm Position Sitting Respiration 18 Pulse 93 Pulse Source Monitor Temp 97.8 F Temp Source Oral Pulse Oximetry (%) 97 Oxygen Delivery Method Room Air Allergies/Meds Allergies & Medications Allergies Penicillins Allergy (Severe, Verified 10/23/24 09:48) Anaphylaxis erythromycin base Adverse Reaction (Intermediate, Verified 10/23/24 09:48) Abdominal Pain Medication Reconciliation albuterol sulfate 90 mcg/actuation aerosol inhaler 2 inh inhalation Q6H PRN wheeze 10/27/22 [History Confirmed 10/23/24] apixaban 5 mg tablet (Eliquis) 5 mg PO BID #60 tabs 02/14/23 [Rx Confirmed 10/23/24] naloxone 4 mg/actuation nasal spray (Narcan) 4 mg intranasal Q2M PRN opioid overdose #2 ea 02/03/24 [Rx Confirmed 10/23/24] ergocalciferol (vitamin D2) 1,250 mcg (50,000 unit) capsule 1,250 mcg PO QWEEK 05/18/24 [History Confirmed 10/23/24] meloxicam 7.5 mg tablet 15 mg PO QDAY 05/18/24 [History Confirmed 10/23/24] furosemide 40 mg tablet 40 mg PO BID #60 tabs 05/25/24 [Rx Confirmed 10/23/24] thiamine HCl (vitamin B1) 100 mg tablet 100 mg PO QDAY #30 tabs 05/25/24 [Rx Confirmed 10/23/24] tramadol 50 mg tablet 50 mg PO Q8H PRN pain #14 tabs 05/25/24 [Rx Confirmed 10/23/24] gabapentin 600 mg tablet 600 mg PO Q8H 06/01/24 [History Confirmed 10/23/24] pantoprazole 40 mg tablet,delayed release 40 mg PO DAILY 06/01/24 [History Confirmed 10/23/24] fluconazole 100 mg tablet (Diflucan) 150 mg (1.5 x 100 mg) PO QDAY #2 tabs 06/20/24 [Rx Confirmed 10/23/24] levothyroxine 50 mcg capsule 50 mcg PO AC #60 caps 06/29/24 [Rx Confirmed 10/23/24] spironolactone 50 mg tablet 50 mg PO QAM #30 tabs 06/29/24 [Rx Confirmed 10/23/24] hydrocodone 5 mg-acetaminophen 325 mg tablet 1 tab PO Q8H PRN pain #14 tabs 08/09/24 [Rx Confirmed 10/23/24] atorvastatin 20 mg tablet 20 mg PO DAILY #30 tabs 09/04/24 [Rx Confirmed 10/23/24] hydrocodone 5 mg-acetaminophen 325 mg tablet 1 tab PO BID PRN pain #14 tabs 09/04/24 [Rx Confirmed 10/23/24] duloxetine 60 mg capsule,delayed release 60 mg PO DAILY #30 caps 10/01/24 [Rx Confirmed 10/23/24] pregabalin 100 mg capsule 100 mg PO TID #90 caps 10/01/24 [Rx Confirmed 10/23/24] MA Intake Visit Data Collection New Patient or Established: Established Patient (seen at [facility] within 3 years) Seen by Clinical Staff ONLY (RN/MA): No Pain Present Currently: No Pain scale:: 0 Pain Scale Used: Curtis-Goetz/Numerical PCP or OBGYN visit in last 3 months: No Do You Feel Safe at Home: Yes Authorities Contacted: N/A Smoking Status Smoking Status: Current every day smoker Cessation Counseling Provided: EDUARDO was advised that quitting smoking is the single most important factor to protect the health of themselves and their family. Discussed the benefits of quitting smoking with patient. Encouraged patient to quit smoking and provided Cessation assistance materials and resources. Tobacco Use: Cigarette Years smoked: 30 Are you interested in quitting?: Yes Would you like additional Smoking Cessation Counseling?: Yes Immunization / Flu Flu Vaccine in the Last 12 Months: No Flu Vaccine Exclusion Criteria: No Exclusion Criteria Past Medical History Past Medical History NEUROLOGIC: Negative Neurological Disorders, Dementia or Seizures CARDIAC: Positive Cardiac Disorders, Hypercholesterolemia, Deep Vein Thrombosis and Hypertension; Negative Atrial Fibrillation, Coronary Artery Disease or Congestive Heart Failure RESPIRATORY: Positive Chronic Obstructive Pulmonary Disease (COPD), Asthma, Bronchitis, Sleep Apnea, Smoking and Tobacco Use GASTROINTESTINAL: Positive Gastrointestinal Disorders, Cirrhosis, Diverticulitis, Diverticulosis, Hiatal Hernia and Gastroesophageal Reflux Disease; Negative Celiac Disease GENITOURINARY: Negative Genitourinary Disorders or Renal Disease REPRODUCTIVE: Negative Pelvic Inflammatory Disease MUSCULOSKELETAL: Positive Arthritis, Osteoporosis, Degenerative Disk Disease and Fractures; Negative Muscular Dystrophy or Bone Cancer ENT: Negative Cataracts ENDOCRINE: Positive Endocrine Disorders and Hypothyroidism; Negative Diabetes Mellitus Type 1 or Diabetes Mellitus Type 2 HEMATOLOGIC: Positive Anemia; Negative Sickle Cell Disease PSYCHO/SOCIAL: Positive Recreational Drug Use, Depression and Anxiety OTHER HISTORY: Positive Falls, Blood Transfusions and Chicken Pox; Negative Autoimmune Disease, Down Syndrome, Developmental Delay, Blood Transfusion Reaction, Anesthesia Reactions, Organ Transplant, MRSA, VRSA, Vancomycin-Resistant Enterococci, Clostridium Difficile or Cancer Family History FAMILY HISTORY: Positive Family Cardiac Disorders and Family Cancer Surgical History SURGICAL: Negative Thyroidectomy or Organ Transplant Social History SMOKING STATUS: Smoking status: Current every day smoker PACK YEARS: Pack-Years: 46 ALCOHOL: Alcohol Intake: Current ALCOHOL FREQUENCY: Alcohol Intake Frequency: 0-2 Drinks per Day HOUSING: Housing: House LIVES WITH: Lives With: Alone Patient Portal Questionaires PHQ-9 PHQ-2 Over the last 2 weeks, how often have you been bothered by any of the following problems? 1. Little interest or pleasure in doing things: not at all PHQ-9 8. Moving or speaking so slowly that other people could have noticed? - Or the opposite - being so fidgety or restless that you have been moving around a lot more than usual: not at all Source: Developed by Drs. Jeff Brock, Sharon East, Andre Diaz and colleagues, with an educational candice from [employer]. Social History Living Situation History Housing: House Housing Other:: Pt short term stay with [facility] Tobacco History Smoking Status: Current every day smoker Packs per Day: 0.5 Pack-Years: 46 Number of Smoking Years (pipe): 45 Alcohol History Alcohol Intake: Current Alcohol Intake Frequency: 0-2 Drinks per Day Substance Use History Substance Use: meth quit 4 years Domestic Abuse History Do You Feel Safe at Home: Yes Review of Systems Report any current symptoms Only answer those that you have currently: Past Medical History Past Medical History Have you ever been diagnosed with any of the following: Neurological Problems Dementia: No Seizures: No Cardiology Problems Atrial Fibrillation: No Coronary Artery Disease: No Hypercholesterolemia: Yes Congestive Heart Failure: No Deep Vein Thrombosis: Yes Hypertension: Yes Respiratory Problems Chronic Obstructive Pulmonary Disease (COPD): Yes Asthma: Yes Bronchitis: Yes Sleep Apnea: Yes Smoking: Yes Tobacco Use: Yes Stomache/Intestinal Problems Cirrhosis: Yes Celiac Disease: No Diverticulitis: Yes Diverticulosis: Yes Hiatal Hernia: Yes Gastroesophageal Reflux Disease: Yes Genital/Urinary Problems Renal Disease: No Reproductive Problems Pelvic Inflammatory Disease: No Musculoskeletal Problems Muscular Dystrophy: No Bone Cancer: No Arthritis: Yes Osteoporosis: Yes Degenerative Disk Disease: Yes Fractures: Yes Head,Eye,Nose,Throat Problems Cataracts: No Endocrine Problems Diabetes Mellitus Type 1: No Diabetes Mellitus Type 2: No Hypothyroidism: Yes Blood Problems Anemia: Yes Sickle Cell Disease: No Psychologic Problems Recreational Drug Use: Yes Depression: Yes Anxiety: Yes Other Problems Autoimmune Disease: No Down Syndrome: No Developmental Delay: No Falls: Yes Blood Transfusions: Yes Blood Transfusion Reaction: No Anesthesia Reactions: No Organ Transplant: No MRSA: No VRSA: No Vancomycin-Resistant Enterococci: No Chicken Pox: Yes Clostridium Difficile: No Cancer: No Surgical History Thyroidectomy: No History of Present Illness HPI Narrative Miss Caban a 64 years old female with PMH of alcoholic liver cirrhosis, 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 Patient was recently discharged from [facility] after treatment for b/l LE cellulitis. Patient had completed course of Cefalexin and doxycycline after hospital discharge on 06/11/24. For the last x2 days patient has been experiencing vulvaginal erythema and pain. Patient denied discharge,dysuria, fever, chills, diarrhea or other associated symptoms. Per patient, she has history of having yeast infection post antibiotic treatments. Perscription for Diflucan 150 mg X1 with refills sent to pharmacy. Patient advised not to take refills unless no improvement in x1 week. Patient has upcoming appointment with Dr. Ly on 06/29/24. 06/29/2024: Came for a routine follow-up visit. Recently saw Dr. Singh for follow-up on hospital admission and yeast infection. As of today, patient denies any other complaints, reported that her vulvovaginal erythema and pain sunsided with fluconazole and also noted that her bilateral lower extremity swelling is decreasing. But still continued to smoke cigarettes, half a pack per day and 1/2 drinks per day. 08/03/2024 : Came for follow up visit after discharge from rehab. Patient had a recent history of fall after sliding from wheel chair during sleep and went to the ED on 06/30/2024 following which she was diagnosed to have acute comminuted displaced fracture of the distal shaft of the left femur. Later she is transferred to [facility] for further treatment and patient underwent repair, placed in rehab center and got discharged on 08/03/2024 from rehab. Complaining of tiredness after waking up in the morning. Denies any other complaints except for pain at the site of fracture. Stopped alcohol but still continuing to smoke. 09/04/2024: Came for a routine follow-up visit. Recovering well from the femoral fracture. Still pending to have physical therapy and sleep study. Otherwise patient is doing well and denies pedal edema, orthopnea, PND, shortness of breath. Wearing compression stockings and brace for her left foot drop. Compliant with all her medications and taking furosemide-spironolactone once daily in the morning. Still continued to smoke 2 cigarettes/day and 2 beers in 1 or 2 days and hard liquor once in a while. Educated on alcohol cessation and smoking cessation. Endorsed that she is following with Dr. Denton in [place] for her heart function. Reported that she would like to have a channel process supervisor in [place]. Also continues to follow-up with Dr. Caban for her previous history of DVT, continued to take Eliquis. Interested in weight loss, but due to foot drop and fracture, not able to do physical activity for which she requested a weight loss medication. Had a mental health follow-up visit on coming Tuesday. Will do a mammogram as patient had previous history of mass in the left breast, BI-RADS 2. Will repeat labs. Also had appointment with her orthopedic surgeon, Dr. Gilmore in the coming week. 10/23/2024: Came with a punch machine operator for a routine follow-up visit. Still continued to smoke half a pack every day and 2-3 hard because every day. Still noted to have lower extremity edema extending up to the above ankles. Noted that she is compliant with all the medications. Occasionally misses the dose of diuretic as she has to pee a lot especially when she goes outside. Could not get channel process supervisor in [place] due to insurance issues and recommend to continue follow-up with Dr. Denton in [place]. Had an appointment with him in the coming week and also mental health visit tomorrow. Will continue current medications and refilled all her medications. Review of Systems Review of Systems Systems Reviewed: All systems reviewed, normal except as documented Objective/Exam Narrative Physical exam: General: Awake. HEENT: Normocephalic, atraumatic, mucous membranes moist. Heart: Regular rate and rhythm, no murmurs. Lungs: Clear to auscultation with no wheezing or crackles. Abdomen: Soft, nondistended, nontender, positive bowel sounds. ?No guarding or rebound tenderness. Neurologic: Alert and oriented x3, no gross neurological deficit, and patient able to move all 4 extremities. Extremities: Noted bilateral pitting pedal edema. Skin: No rash or ecchymoses. Assessment & Plan Diagnosis / Problem List (1) Sleep apnea with hypersomnolence: Status: Acute Assessment & Plan: Patient had BMI of 42.2 Complaining of tiredness after waking up in the morning. Plan: Referred for sleep study, pending Will order Mounjaro for weight loss as it helps for AGUSTIN (2) Hypothyroid: Status: Acute Qualifiers: Hypothyroidism type: acquired Qualified Code(s): E03.9 - Hypothyroidism, unspecified Assessment & Plan: - Patient is currently on Levothyroxine 50mcg - Tsh as of 05/2024 is within normal limits Plan: - Recommended to continue the same dosage as of now and educated on weight loss - Refilled the medications (3) Peripheral neuropathy: Status: Acute Qualifiers: Peripheral neuropathy type: polyneuropathy, alcohol-induced Qualified Code(s): G62.1 - Alcoholic polyneuropathy Assessment & Plan: still c/o pain and paresthesias in the lower extremities, likely alcohol induced polyneuropathy and patient still continued to drink alcohol but reduced the quantity Plan: -Recommended alcohol cessation and counselling is given -Recommended to take multivitamin supplementation -Recommended to continue pregabalin (4) Obesities, morbid: Status: Acute Assessment & Plan: Patient has BMI of 42.2 Had a history of wheelchair-bound because of severe back problems, left foot drop and recent femoral fracture Also developed liver cirrhosis which could be multifactorial from alcohol intake and obesity Could not lose weight despite dietary modifications Plan: - Recommended dietary and lifestyle modifications - Patient cannot do physical activity in the setting of left foot drop, chronic back pain, recent femoral fracture - Will start on Mounjaro 2.5 Mg once a week and will titrate the dose based on the patient's tolerance (5) Mammographic fibroglandular density, bilateral breasts: Status: Acute Assessment & Plan: Found to have bilateral fibroglandular density on mammogram in 07/2023 BI-RADS 2 Plan: Ordered repeat follow-up mammogram because of abnormality in 07/2023, still pending (6) Fracture of femur, distal, left, closed: Status: Acute Qualifiers: Encounter type: subsequent encounter Fracture healing: with routine healing Fracture morphology: unspecified fracture morphology Qualified Code(s): S72.402D - Unspecified fracture of lower end of left femur, subsequent encounter for closed fracture with routine healing Assessment & Plan: Came for follow up visit Patient had a recent history of fall after sliding from wheel chair during sleep and went to the ED on 06/30/2024 following which she was diagnosed to have acute comminuted displaced fracture of the distal shaft of the left femur. Later she is transferred to [facility] for further treatment and patient underwent repair, placed in rehab center and got discharged on 08/03/2024 from rehab Plan: - Recovering well - Complaining of severe excruciating pain at the site of fracture repair especially when she tries to mobilize and requested for norco refill. (7) History of cirrhosis of liver: Status: Acute Assessment & Plan: Had alcohol use disorder and obesity that could be contributing to liver cirrhosis Noted to have irregular contour of liver with splenomegaly on CT Abdomen on 05/2024 Denies bleeding manifestations Plan: Recommended alcohol cessation and weight loss Recommended to continue lasix and aldactone, will increase the dose of aldactone on follow up visits (8) DVT (deep venous thrombosis): Status: Inactive Qualifiers: Affected thrombotic vein of extremity: other lower extremity vein Chronicity: unspecified DVT location: lower extremity Laterality: unspecified laterality Qualified Code(s): I82.499 - Acute embolism and thrombosis of other specified deep vein of unspecified lower extremity Assessment & Plan: -Patient has history of unprovoked DVT 5 years ago and is following vascular surgeon Dr. Caban -Currently on eliquis 5 mg p.o. bid -Had recent visit with Dr. Caban in th last 6 months and he recommended to continue it Plan: - Discussed about risks and benefits of anticoagulation in the setting of alcohol usage and recent falls - Recommended to continue eliquis for now in view of immobility Additional Assessment Attending note: I, Tung Fernando MD, attest that I was physically present for the meza portions of the service and evaluated the patient with the resident and I reviewed and discussed the case with the resident and agree with the resident's findings and plans of care as documented above. Tung Fernando MD Physician Billing Established Patient Established Patient: E/M Level 3-CPT 34728 Office Procedures [facility] Level of Care Nursing/Assessment Patient Status: Established Patient Nursing Assessment/Reassessment: Medication Reconciliation, Update PMH in EMR and Vital Signs Coordination of Care: Complex Care and Chronic Disease 1-5, Education Complex Pt/Fam and Staff clarify orders Established Patient Charge Established Patient Point Assignment: 85 Established Patient Point Charge: EP Level 3 (80-115)
[2024-10-23 09:48] VITALS: BP 115/75; PULSE 93; RESP 18; TEMP 36.6; O2SAT 97
== END 2024-10-23 10:34 | disposition home or self-care (01) ==
LOC: HODAHC 09:28
PROVIDERS: Supervising Provider Internal Medicine
DX: G47.10 Hypersomnia, unspecified (principal); G47.30 Sleep apnea, unspecified; E03.9 Hypothyroidism, unspecified; G62.1 Alcoholic polyneuropathy; E66.01 Morbid (severe) obesity due to excess calories; Z68.41 Body mass index [BMI] 40.0-44.9, adult; R92.323 Mammographic fibroglandular density, bilateral breasts; S72.402D Unspecified fracture of lower end of left femur, subsequent encounter for closed fracture with routine healing; W19.XXXD Unspecified fall, subsequent encounter; Z87.19 Personal history of other diseases of the digestive system; Z86.718 Personal history of other venous thrombosis and embolism; Z79.01 Long term (current) use of anticoagulants
CPT/HCPCS: 99213; G0463

== ENCOUNTER 2024-11-21 13:31 | Outpatient (AMB) | payer MEDICAID, SELFPAY ==
--- NOTE | 2024-11-21 13:34 | PD.RESCLINIC ---
Allergies/Meds Allergies & Medications Allergies Penicillins Allergy (Severe, Verified 12/13/24 19:53) Anaphylaxis lorazepam (From Ativan) Allergy (Verified 12/13/24 19:53) erythromycin base Adverse Reaction (Intermediate, Verified 12/13/24 19:53) Abdominal Pain Medication Reconciliation apixaban 5 mg tablet (Eliquis) 5 mg PO BID #60 tabs 02/14/23 [Rx Confirmed 12/14/24] ergocalciferol (vitamin D2) 1,250 mcg (50,000 unit) capsule 1,250 mcg PO QWEEK 05/18/24 [History Confirmed 12/14/24] thiamine HCl (vitamin B1) 100 mg tablet 100 mg PO QDAY #30 tabs 05/25/24 [Rx Confirmed 12/14/24] pantoprazole 40 mg tablet,delayed release 40 mg PO DAILY 06/01/24 [History Confirmed 12/14/24] duloxetine 60 mg capsule,delayed release 60 mg PO DAILY #30 caps 10/28/24 [Rx Confirmed 12/14/24] furosemide 40 mg tablet 40 mg PO BID #60 tabs 10/28/24 [Rx Confirmed 12/14/24] levothyroxine 50 mcg capsule 50 mcg PO AC #60 caps 10/28/24 [Rx Confirmed 12/14/24] lidocaine 4 % topical patch (AsperFlex (lidocaine)) 1 patch topical QDAY PRN pain #10 ea 10/28/24 [Rx Confirmed 12/14/24] spironolactone 50 mg tablet 50 mg PO QAM #30 tabs 10/28/24 [Rx Confirmed 12/14/24] pregabalin 100 mg capsule 100 mg PO TID #90 caps 11/21/24 [Rx Confirmed 12/14/24] semaglutide (weight loss) 0.5 mg/0.5 mL subcutaneous pen injector (Wegovy) 0.5 mg (0.5 mL) subcut QWEEK #2 mL 11/21/24 [Rx Confirmed 12/14/24] MA Intake Visit Data Collection New Patient or Established: Established Patient (seen at [facility] within 3 years) Seen by Clinical Staff ONLY (RN/MA): No Pain Present Currently: No PCP or OBGYN visit in last 3 months: Yes Smoking Status Smoking Status: Current every day smoker Cessation Counseling Provided: EDUARDO was advised that quitting smoking is the single most important factor to protect the health of themselves and their family. Discussed the benefits of quitting smoking with patient. Encouraged patient to quit smoking and provided Cessation assistance materials and resources. Tobacco Use: Cigarette Years smoked: 25 Are you interested in quitting?: Yes Would you like additional Smoking Cessation Counseling?: No Immunization / Flu Flu Vaccine in the Last 12 Months: No Flu Vaccine Exclusion Criteria: No Exclusion Criteria Past Medical History Past Medical History NEUROLOGIC: Negative Neurological Disorders, Dementia or Seizures CARDIAC: Positive Cardiac Disorders, Hypercholesterolemia, Deep Vein Thrombosis and Hypertension; Negative Atrial Fibrillation, Coronary Artery Disease or Congestive Heart Failure RESPIRATORY: Positive Chronic Obstructive Pulmonary Disease (COPD), Asthma, Bronchitis, Sleep Apnea, Smoking and Tobacco Use GASTROINTESTINAL: Positive Gastrointestinal Disorders, Cirrhosis, Diverticulitis, Diverticulosis, Hiatal Hernia and Gastroesophageal Reflux Disease; Negative Celiac Disease GENITOURINARY: Negative Genitourinary Disorders or Renal Disease REPRODUCTIVE: Negative Pelvic Inflammatory Disease MUSCULOSKELETAL: Positive Arthritis, Osteoporosis, Degenerative Disk Disease and Fractures; Negative Muscular Dystrophy or Bone Cancer ENT: Negative Cataracts ENDOCRINE: Positive Endocrine Disorders and Hypothyroidism; Negative Diabetes Mellitus Type 1 or Diabetes Mellitus Type 2 HEMATOLOGIC: Positive Anemia; Negative Sickle Cell Disease PSYCHO/SOCIAL: Positive Recreational Drug Use, Depression and Anxiety OTHER HISTORY: Positive Falls, Blood Transfusions and Chicken Pox; Negative Autoimmune Disease, Down Syndrome, Developmental Delay, Blood Transfusion Reaction, Anesthesia Reactions, Organ Transplant, MRSA, VRSA, Vancomycin-Resistant Enterococci, Clostridium Difficile or Cancer Family History FAMILY HISTORY: Positive Family Cardiac Disorders and Family Cancer Surgical History SURGICAL: Negative Thyroidectomy or Organ Transplant Social History SMOKING STATUS: Smoking status: Current every day smoker PACK YEARS: Pack-Years: 46 ALCOHOL: Alcohol Intake: Current ALCOHOL FREQUENCY: Alcohol Intake Frequency: 0-2 Drinks per Day HOUSING: Housing: House LIVES WITH: Lives With: Alone Patient Portal Questionaires PHQ-9 PHQ-2 Over the last 2 weeks, how often have you been bothered by any of the following problems? 1. Little interest or pleasure in doing things: not at all PHQ-9 8. Moving or speaking so slowly that other people could have noticed? - Or the opposite - being so fidgety or restless that you have been moving around a lot more than usual: not at all Source: Developed by Drs. Jeff Brock, Sharon East, Andre Diaz and colleagues, with an educational candice from [employer]. Social History Living Situation History Housing: House Housing Other:: Pt short term stay with [facility] Tobacco History Smoking Status: Current every day smoker Packs per Day: 0.5 Pack-Years: 46 Number of Smoking Years (pipe): 45 Alcohol History Alcohol Intake: Current Alcohol Intake Frequency: 0-2 Drinks per Day Substance Use History Substance Use: meth quit 4 years Review of Systems Report any current symptoms Only answer those that you have currently: Past Medical History Past Medical History Have you ever been diagnosed with any of the following: Neurological Problems Dementia: No Seizures: No Cardiology Problems Atrial Fibrillation: No Coronary Artery Disease: No Hypercholesterolemia: Yes Congestive Heart Failure: No Deep Vein Thrombosis: Yes Hypertension: Yes Respiratory Problems Chronic Obstructive Pulmonary Disease (COPD): Yes Asthma: Yes Bronchitis: Yes Sleep Apnea: Yes Smoking: Yes Tobacco Use: Yes Stomache/Intestinal Problems Cirrhosis: Yes Celiac Disease: No Diverticulitis: Yes Diverticulosis: Yes Hiatal Hernia: Yes Gastroesophageal Reflux Disease: Yes Genital/Urinary Problems Renal Disease: No Reproductive Problems Pelvic Inflammatory Disease: No Musculoskeletal Problems Muscular Dystrophy: No Bone Cancer: No Arthritis: Yes Osteoporosis: Yes Degenerative Disk Disease: Yes Fractures: Yes Head,Eye,Nose,Throat Problems Cataracts: No Endocrine Problems Diabetes Mellitus Type 1: No Diabetes Mellitus Type 2: No Hypothyroidism: Yes Blood Problems Anemia: Yes Sickle Cell Disease: No Psychologic Problems Recreational Drug Use: Yes Depression: Yes Anxiety: Yes Other Problems Autoimmune Disease: No Down Syndrome: No Developmental Delay: No Falls: Yes Blood Transfusions: Yes Blood Transfusion Reaction: No Anesthesia Reactions: No Organ Transplant: No MRSA: No VRSA: No Vancomycin-Resistant Enterococci: No Chicken Pox: Yes Clostridium Difficile: No Cancer: No Surgical History Thyroidectomy: No History of Present Illness HPI Narrative Miss Caban a 64 years old female with PMH of alcoholic liver cirrhosis, 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 Patient was recently discharged from [facility] after treatment for b/l LE cellulitis. Patient had completed course of Cefalexin and doxycycline after hospital discharge on 06/11/24. For the last x2 days patient has been experiencing vulvaginal erythema and pain. Patient denied discharge,dysuria, fever, chills, diarrhea or other associated symptoms. Per patient, she has history of having yeast infection post antibiotic treatments. Perscription for Diflucan 150 mg X1 with refills sent to pharmacy. Patient advised not to take refills unless no improvement in x1 week. Patient has upcoming appointment with Dr. Ly on 06/29/24. 06/29/2024: Came for a routine follow-up visit. Recently saw Dr. Singh for follow-up on hospital admission and yeast infection. As of today, patient denies any other complaints, reported that her vulvovaginal erythema and pain sunsided with fluconazole and also noted that her bilateral lower extremity swelling is decreasing. But still continued to smoke cigarettes, half a pack per day and 1/2 drinks per day. 08/03/2024 : Came for follow up visit after discharge from rehab. Patient had a recent history of fall after sliding from wheel chair during sleep and went to the ED on 06/30/2024 following which she was diagnosed to have acute comminuted displaced fracture of the distal shaft of the left femur. Later she is transferred to [facility] for further treatment and patient underwent repair, placed in rehab center and got discharged on 08/03/2024 from rehab. Complaining of tiredness after waking up in the morning. Denies any other complaints except for pain at the site of fracture. Stopped alcohol but still continuing to smoke. 09/04/2024: Came for a routine follow-up visit. Recovering well from the femoral fracture. Still pending to have physical therapy and sleep study. Otherwise patient is doing well and denies pedal edema, orthopnea, PND, shortness of breath. Wearing compression stockings and brace for her left foot drop. Compliant with all her medications and taking furosemide-spironolactone once daily in the morning. Still continued to smoke 2 cigarettes/day and 2 beers in 1 or 2 days and hard liquor once in a while. Educated on alcohol cessation and smoking cessation. Endorsed that she is following with Dr. Denton in [place] for her heart function. Reported that she would like to have a rail manager in [place]. Also continues to follow-up with Dr. Caban for her previous history of DVT, continued to take Eliquis. Interested in weight loss, but due to foot drop and fracture, not able to do physical activity for which she requested a weight loss medication. Had a mental health follow-up visit on coming Tuesday. Will do a mammogram as patient had previous history of mass in the left breast, BI-RADS 2. Will repeat labs. Also had appointment with her orthopedic surgeon, Dr. Gilmore in the coming week. 10/23/2024: Came with a industrial eng for a routine follow-up visit. Still continued to smoke half a pack every day and 2-3 hard because every day. Still noted to have lower extremity edema extending up to the above ankles. Noted that she is compliant with all the medications. Occasionally misses the dose of diuretic as she has to pee a lot especially when she goes outside. Could not get rail manager in [place] due to insurance issues and recommend to continue follow-up with Dr. Denton in [place]. Had an appointment with him in the coming week and also mental health visit tomorrow. Will continue current medications and refilled all her medications. 11/21/2024: Televisit. Routine follow-up. Still continued to smoke and drink alcohol, half pack of cigarettes per day. Reported that she is compliant with medication. Recommended to continue Lasix twice daily, spironolactone once a day. Reported that she is having muscle cramps once in a while. Requested for refill of medications. Recommended patient to stop alcohol and smoking. Reported that she is following with a grain operations manager from [place] and got colonoscopy/upper GI endoscopy, Eleazar glass. Will follow-up with the results. Reported that her sleep study was done and requesting for a machine but we do not have the report as of now. Will try to get the report. Endorsed that her lower extremity swelling is still the same. Review of Systems Review of Systems Systems Reviewed: All systems reviewed, normal except as documented Assessment & Plan Diagnosis / Problem List (1) Sleep apnea with hypersomnolence: Status: Acute Assessment & Plan: Patient had BMI of 42.2 Complaining of tiredness after waking up in the morning. Plan: Referred for sleep study, reported that study is done and report is pending Recommended to follow up with results Ordered Mounjaro for weight loss as it helps for AGUSTIN, but did not get due to insurance issues, started on wegovy (2) Hypothyroid: Status: Acute Qualifiers: Hypothyroidism type: acquired Qualified Code(s): E03.9 - Hypothyroidism, unspecified Assessment & Plan: - Patient is currently on Levothyroxine 50mcg - Tsh as of 05/2024 is within normal limits Plan: - Recommended to continue the same dosage as of now and educated on weight loss - Refilled the medications (3) Peripheral neuropathy: Status: Acute Qualifiers: Peripheral neuropathy type: polyneuropathy, alcohol-induced Qualified Code(s): G62.1 - Alcoholic polyneuropathy Assessment & Plan: still c/o pain and paresthesias in the lower extremities, likely alcohol induced polyneuropathy and patient still continued to drink alcohol but reduced the quantity Plan: -Recommended alcohol cessation and counselling is given -Recommended to take multivitamin supplementation -Recommended to continue pregabalin and refilled (4) Obesities, morbid: Status: Acute Assessment & Plan: Patient has BMI of 42.2 Had a history of wheelchair-bound because of severe back problems, left foot drop and recent femoral fracture Also developed liver cirrhosis which could be multifactorial from alcohol intake and obesity Could not lose weight despite dietary modifications Plan: - Recommended dietary and lifestyle modifications - Patient cannot do physical activity in the setting of left foot drop, chronic back pain, recent femoral fracture - Will try wegovy (5) History of cirrhosis of liver: Status: Acute Assessment & Plan: Had alcohol use disorder and obesity that could be contributing to liver cirrhosis Noted to have irregular contour of liver with splenomegaly on CT Abdomen on 05/2024 Denies bleeding manifestations Plan: Recommended alcohol cessation and weight loss Recommended to continue lasix and aldactone, will increase the dose of aldactone on follow up visits (6) DVT (deep venous thrombosis): Status: Inactive Qualifiers: DVT location: lower extremity Affected thrombotic vein of extremity: other lower extremity vein Chronicity: unspecified Laterality: unspecified laterality Qualified Code(s): I82.499 - Acute embolism and thrombosis of other specified deep vein of unspecified lower extremity Assessment & Plan: -Patient has history of unprovoked DVT 5 years ago and is following vascular surgeon Dr. Caban -Currently on eliquis 5 mg p.o. bid -Had recent visit with Dr. Caban in th last 6 months and he recommended to continue it Plan: - Discussed about risks and benefits of anticoagulation in the setting of alcohol usage and recent falls - Recommended to continue eliquis for now in view of immobility Orders: Referrals DME Services Luigi Ly MD Office Procedures [facility] Level of Care Nursing/Assessment Patient Status: Established Patient Nursing Assessment/Reassessment: Medication Reconciliation and Update PMH in EMR Coordination of Care: Complex Care and Chronic Disease 1-5, Consent,records obtained, informed consent, Results/Orders obtained and Staff clarify orders Established Patient Charge Established Patient Point Assignment: 60 Telehealth Telemed Phone/Video with patient at home & Dr,PA,DIRECTORY ASSISTANCE OPERATOR: Yes
== END 2024-11-21 14:20 | disposition home or self-care (01) ==
LOC: HODAHC 13:31
PROVIDERS: Supervising Provider Internal Medicine
DX: G47.30 Sleep apnea, unspecified (principal); G47.10 Hypersomnia, unspecified; E03.9 Hypothyroidism, unspecified; G62.9 Polyneuropathy, unspecified; E66.01 Morbid (severe) obesity due to excess calories; K70.30 Alcoholic cirrhosis of liver without ascites; Z71.41 Alcohol abuse counseling and surveillance of alcoholic; I82.409 Acute embolism and thrombosis of unspecified deep veins of unspecified lower extremity; Z79.01 Long term (current) use of anticoagulants
CPT/HCPCS: 99212; G0463

== ENCOUNTER 2024-12-13 19:45 | Inpatient (IN) | payer MEDICAID, SELFPAY ==
[2024-12-13 19:48] VITALS: PULSE 101; RESP 22; O2SAT 93; BMI 55.7
--- NOTE | 2024-12-13 19:53 | EKG_ITS ---
[facility] Test Date: 2024-12-13 Pat Name: EDUARDO SINGH Department: Room: - Gender: Female Manager Business Planning: : 1960 Requested By: ED Temporary Provider Order Number: [id number] Reading MD: ED Temporary Provider Measurements Intervals Sisters Rate: 99 P: 63 [place]: 188 QRS: -38 QRSD: 113 T: 75 QT: 378 QTc: 487 Interpretive Statements SINUS RHYTHM LEFT AXIS DEVIATION [QRS AXIS < -30] LOW QRS VOLTAGE IN PRECORDIAL LEADS [QRS DEFLECTION < 1.0 mV IN CHEST LEADS] MODERATE INTRAVENTRICULAR CONDUCTION DELAY [110+ ms QRS DURATION] NONSPECIFIC T-WAVE ABNORMALITY Compared to ECG 06/07/2024 23:19:42 Low QRS voltage now present Intraventricular conduction delay now present T-wave abnormality now present Myocardial infarct finding no longer present /store/S0/[id number]
--- NOTE | 2024-12-13 20:17 | PD.EDCHEST ---
ED Chest Pain RME/HPI General Chief Complaint: Chest Pain Stated Complaint: CHEST PAIN Time Seen by Provider: 12/13/24 20:17 Arrival date/time: 12/13/24 19:45 RME / HPI RME / HPI narrative: Dr. Collazo?s Main ED Evaluation: 64yo female with a history of COPD, asthma, DVT on Eliquis BIBA from home presents to the ED for complaints of chest pain and BLE pain and swelling. Patient states she's had BLE pain and swelling for the last 2 weeks, reporting it significantly worsened today and was unable to lift her legs due to the pain. Patient also endorses having significant chest pain. En route, patient's blood pressure was 141/110 and EMS administered 2 sublingual nitroglycerin and aspirin. Upon arrival to the ED, patient's blood pressure is in the 70s-90s systolically. Patient denies any fever, chills, abdominal pain, or any other associated symptoms. Related Data Home Medications ?Medication ?Instructions ?Recorded ?Confirmed albuterol sulfate 90 mcg/actuation 2 inh inhalation Q6H PRN wheeze 10/27/22 11/21/24 aerosol inhaler ergocalciferol (vitamin D2) 1,250 1,250 mcg PO QWEEK 05/18/24 11/21/24 mcg (50,000 unit) capsule meloxicam 7.5 mg tablet 15 mg PO QDAY 05/18/24 11/21/24 pantoprazole 40 mg tablet,delayed 40 mg PO DAILY 06/01/24 11/21/24 release Previous Rx's ?Medication ?Instructions ?Recorded apixaban 5 mg tablet (Eliquis) 5 mg PO BID #60 tabs 02/14/23 naloxone 4 mg/actuation nasal 4 mg intranasal Q2M PRN opioid 02/03/24 spray (Narcan) overdose #2 ea thiamine HCl (vitamin B1) 100 mg 100 mg PO QDAY #30 tabs 05/25/24 tablet tramadol 50 mg tablet 50 mg PO Q8H PRN pain #14 tabs 05/25/24 fluconazole 100 mg tablet 150 mg (1.5 x 100 mg) PO QDAY #2 06/20/24 (Diflucan) tabs hydrocodone 5 mg-acetaminophen 325 1 tab PO Q8H PRN pain #14 tabs 08/09/24 mg tablet atorvastatin 20 mg tablet 20 mg PO DAILY #30 tabs 09/04/24 hydrocodone 5 mg-acetaminophen 325 1 tab PO BID PRN pain #14 tabs 09/04/24 mg tablet duloxetine 60 mg capsule,delayed 60 mg PO DAILY #30 caps 10/28/24 release furosemide 40 mg tablet 40 mg PO BID #60 tabs 10/28/24 levothyroxine 50 mcg capsule 50 mcg PO AC #60 caps 10/28/24 lidocaine 4 % topical patch 1 patch topical QDAY PRN pain #10 10/28/24 (AsperFlex (lidocaine)) ea semaglutide (weight loss) 0.25 0.25 mg (0.5 mL) subcut QWEEK #2 mL 10/28/24 mg/0.5 mL subcutaneous pen injector (Wegovy) spironolactone 50 mg tablet 50 mg PO QAM #30 tabs 10/28/24 pregabalin 100 mg capsule 100 mg PO TID #90 caps 11/21/24 semaglutide (weight loss) 0.5 0.5 mg (0.5 mL) subcut QWEEK #2 mL 11/21/24 mg/0.5 mL subcutaneous pen injector (Wegovy) Allergies Allergy/AdvReac Type Severity Reaction Status Date / Time Penicillins Allergy Severe Anaphylaxis Verified 12/13/24 19:53 lorazepam (From Ativan) Allergy Verified 12/13/24 19:53 erythromycin base AdvReac Intermediate Abdominal Verified 12/13/24 19:53 Pain Review of Systems Review of Systems Systems Reviewed: All systems reviewed, normal except as documented Past Medical History Past Medical History NEUROLOGIC: Negative Neurological Disorders, Dementia or Seizures CARDIAC: Positive Cardiac Disorders, Hypercholesterolemia, Deep Vein Thrombosis and Hypertension; Negative Atrial Fibrillation, Coronary Artery Disease or Congestive Heart Failure RESPIRATORY: Positive Chronic Obstructive Pulmonary Disease (COPD), Asthma, Bronchitis, Sleep Apnea, Smoking and Tobacco Use GASTROINTESTINAL: Positive Gastrointestinal Disorders, Cirrhosis, Diverticulitis, Diverticulosis, Hiatal Hernia, Gastroesophageal Reflux Disease and Obesity; Negative Celiac Disease GENITOURINARY: Negative Genitourinary Disorders or Renal Disease REPRODUCTIVE: Negative Pelvic Inflammatory Disease MUSCULOSKELETAL: Positive Musculoskeletal Disorders, Arthritis, Osteoporosis, Degenerative Disk Disease and Fractures; Negative Muscular Dystrophy or Bone Cancer ENT: Negative Cataracts ENDOCRINE: Positive Endocrine Disorders and Hypothyroidism; Negative Diabetes Mellitus Type 1 or Diabetes Mellitus Type 2 HEMATOLOGIC: Positive Anemia; Negative Sickle Cell Disease PSYCHO/SOCIAL: Positive Recreational Drug Use, Depression and Anxiety OTHER HISTORY: Positive Falls, Blood Transfusions and Chicken Pox; Negative Autoimmune Disease, Down Syndrome, Developmental Delay, Blood Transfusion Reaction, Anesthesia Reactions, Organ Transplant, MRSA, VRSA, Vancomycin-Resistant Enterococci, Clostridium Difficile or Cancer Family History FAMILY HISTORY: Positive Family Cardiac Disorders and Family Cancer Surgical History SURGICAL: Positive Abdominal Surgery, Gastric Bypass Surgery, Lumpectomy and Section; Negative Cardiac Surgery, Endocrine Surgery, Thyroidectomy, Ear Surgery, Tympanostomy Tube, Eye Surgery, Nose Surgery, Oral Surgery, Tonsillectomy, Adenoidectomy, Cochlear Implant, Corneal Transplant, Throat Surgery, Tracheostomy, Nephrectomy, Joint Replacement, Neurologic Surgery, Brain Shunt or Organ Transplant Social History SMOKING STATUS: Current every day smoker SUBSTANCE USE: methamphetamine ED Exam Narrative Physical exam: Generally patient is alert elderly appearing female who is morbidly obese, heart regular rate and rhythm, lungs clear to auscultation equal bilaterally with distant breath sounds, abdomen is obese soft nontender, extremities show bilateral lower extremity symmetrical edema with warmth tenderness and erythema to the anterior tibial regions. Patient has some dried cracked skin to bilateral feet. No fluctuance or open wounds., Neurologic exam shows no focal motor deficits with a Alessandro Coma Scale of 15 Course Course Course Narrative: CXR is ordered for determining the etiology of chest pain. 2126: Sepsis alert initiated. Orders made at this time are congruent with ED Adult Sepsis Order List. Re-evaluation is to be completed. NS IVF was started at 2125. Quality Measures Possible source: skin/soft tissue Blood cultures ordered: yes Antibiotic ordered: Yes Pertinent labs: 12/13/24 20:15 Lactic Acid 8.5 H* mMol/L (0.4-2.0) sepsis Orders Category Date Time Status EKG (ED ONLY) *Do not use* NOW Care 12/13/24 19:53 Completed EKG (ED Only) Stat Exams 12/13/24 19:53 Draft XR chest 1V portable Stat Exams 12/13/24 20:26 Completed BNP [B-Type Natriuretic Peptide] Stat Lab 12/13/24 20:15 Completed Blood Culture (Lab) Stat Lab 12/13/24 20:48 Received CBC Stat Lab 12/13/24 20:15 Completed CMP [Comprehensive Metabolic Panel] Stat Lab 12/13/24 20:15 Completed Lactic Acid [Lactate (Lactic Acid)] Stat Lab 12/13/24 20:15 Results Troponin I Stat Lab 12/13/24 20:15 Completed UA [Urinalysis] Stat Lab 12/13/24 20:25 Ordered Sodium Chloride 0.9% 1000 ml [Ns] 1,000 ml Med 12/13/24 20:55 Discontinued IV 999 mls/hr Sodium Chloride 0.9% 1000 ml [Ns] 1,000 ml Med 12/13/24 21:01 Discontinued IV 999 mls/hr Sodium Chloride 0.9% 1000 ml [Ns] 1,000 ml Med 12/13/24 22:04 Active IV 999 mls/hr Vancomycin Pharmacy to Dose Med 12/14/24 09:00 Pending 1 each IV QDAY Vancomycin/Ns 1 gm Ivpb 200 ml Med 12/13/24 21:15 Active IV 120 mls/hr cefTRIAXone/D5w 1gm IV premix [Rocephin/D5w 1gm IV Med 12/13/24 20:54 Discontinued premix] 1 gm in 50 ml IV X1 Vital Signs Vital signs: Vital Signs Temperature 98.3 F 12/13/24 20:30 Respiratory Rate 16 12/13/24 20:30 Blood Pressure 91/38 L 12/13/24 20:30 Pulse Oximetry (%) 97 12/13/24 20:30 Oxygen Delivery Method Humidified Nasal Cannula 12/13/24 20:30 Oxygen Flow Rate 2 12/13/24 20:30 Chest Pain MDM Narrative MDM Narrative:: Scribe Attestation: 12/13/24 - Ya Hanna am scribing for and in the presence of Dr. Collazo. Chest pain workup was unremarkable with a normal cardiac silhouette on chest x-ray without evidence for pulmonary vascular congestion. EKG is nonischemic. Troponin is not elevated. BNP is not elevated. Patient arrived here hypotensive however with paramedics original blood pressure 141/110. Paramedics gave the patient nitroglycerin for her sharp left upper chest pain which the patient no longer is complaining of. I believe the nitroglycerin because the patient become hypotensive with a systolic blood pressure in the 80s and 90s. Lactic acid level came back at 8.5. There is no leukocytosis. I believe the patient to be septic from bilateral lower extremity cellulitis. Patient has an allergy with anaphylaxis to penicillin. Patient received 1 g of Rocephin IV and vancomycin 2 dosed by pharmacy. Per ideal body weight the patient received 2 L of normal saline IV and 1 L lactated Ringer's IV. This helped restore and improved the blood pressure. Patient is not on antihypertensive medication. She has no history of diabetes. I discussed this case with the hospitalist and the patient will be admitted to the hospital for further treatment and evaluation for her sepsis with bilateral lower extremity cellulitis. Patient data External records reviewed:: [facility] previous records (Per chart review, patient was admitted here on 06/08/24 for cellulitis.) and EMS form Clinical information provided by:: patient Social determinants that could affect healthcare access:: none Patient has the following chronic illnesses:: COPD, asthma How is presenting disease/condition affected by chronic disease/condition?: uneffected by Evaluation data The following diagnostics were reviewed and interpreted by me:: lab results, radiology exam(s) and EKG tracing(s) Lab and/or radiology exams considered but not ordered:: none Interpretation Summary: [facility] Report Signed Patient: EDUARDO SINGH [facility] Record#: [id number] Birthdate: 1960 Age/Sex: 64 / F Location: [facility] Attending Dr: Ordering Physician: Zach Collazo DO Date of Service: 12/13/24 Procedure(s): XR chest 1V portable Accession Number(s): [id number] cc: Josue Mosquera MD; Zach Collazo DO~ EXAMINATION: AP chest single view TECHNIQUE: AP portable semiupright chest single view Date and time: December 132026 hours INDICATIONS: Chest pain shortness of breath leg swelling and feet swelling 1 day FINDINGS: No significant cardiac enlargement Mild vascular congestion. Minor subsegmental atelectasis or scarring left base No interval pneumonia or pulmonary edema Prominent osteopenia IMPRESSION: Negative for CHF Prominent osteopenia Dictated By: Josue Mosquera MD Signed By: <Electronically signed by Josue Mosquera MD in OV> 12/13/242102 Medications / Prescriptions Medications or Prescriptions considered but not ordered:: none Medication administrations:: Medication Administration History Vancomycin/Sodium Chloride (Vancomycin/Ns 1 Gm Ivpb) 200 mls @ 120 mls/hr IV .Q1H40M DA Stop: 12/14/24 00:34 Last Admin: 12/13/24 21:52 Dose: 120 mls/hr Documented By: SHRUTHI Sodium Chloride (Ns) 1,000 mls @ 999 mls/hr IV .Q1H1M ONE Stop: 12/13/24 23:04 Pharmacy Consult (Vancomycin Pharmacy To Dose 1 Each Each) 1 each IV QDAY [facility] Stop: 01/13/25 08:59 Discontinued Medications Ceftriaxone Sodium/Dextrose (Rocephin/D5w 1gm Iv Premix) 1 gm in 50 mls @ 100 mls/hr IV X1 ONE Stop: 12/13/24 21:23 Last Infusion: 12/13/24 21:56 Dose: Infused Documented By: Admin: 12/13/24 21:25 Dose: 100 mls/hr Documented By: SHRUTHI Sodium Chloride (Ns) 1,000 mls @ 999 mls/hr IV .Q1H1M ONE Stop: 12/13/24 21:55 Last Admin: 12/13/24 21:26 Dose: 999 mls/hr Documented By: SHRUTHI Sodium Chloride (Ns) 1,000 mls @ 999 mls/hr IV .Q1H1M ONE Stop: 12/13/24 22:01 Last Admin: 12/13/24 21:26 Dose: 999 mls/hr Documented By: SHRUTHI see above Consultations Consultation(s) initiated? (list below): Yes Diagnosis Chest Pain Differential Diagnosis: other (See MDM) Most likely diagnosis given after review of the tests above:: see clinical impression below Admission Indicated Admission indicated?: indicated Admission Request Was there a request for admission?: Yes Admission Attestation Admission request attestation: Discussed case with [] from Hospitalist service regarding admission. Discussed patients ED course, exam findings, labs, and radiology results. The Hospitalist [agrees,declines] to accept the patient for admission. Disposition Plan Disposition Plan: Admit Critical Care Time Critical Care Time Critical Care Time: Yes Total Critical Care Time (min.): 35 Attestation: Excluding other billable procedures Discharge Plan Plan Patient Disposition: Admit Acute Care w/in Hospital Prescriptions/Referrals Prescriptions/Med Rec: No Action tramadol 50 mg tablet 50 mg PO Q8H MDD 150 mg PRN (Reason: pain) Qty: 14 0RF thiamine HCl (vitamin B1) 100 mg tablet 100 mg PO QDAY Qty: 30 1RF spironolactone 50 mg tablet 50 mg PO QAM Qty: 30 3RF levothyroxine 50 mcg capsule 50 mcg PO AC Qty: 60 2RF duloxetine 60 mg capsule,delayed release(DR/EC) 60 mg PO DAILY Qty: 30 2RF furosemide 40 mg tablet 40 mg PO BID Qty: 60 2RF lidocaine [AsperFlex (lidocaine)] 4 % adhesive patch,medicated 1 patch topical QDAY PRN (Reason: pain) Qty: 10 0RF Wegovy 0.25 mg/0.5 mL pen injector 0.25 mg subcut QWEEK Qty: 2 0RF Rx Instructions: administer weeks 1 through 4 of therapy fluconazole [Diflucan] 100 mg tablet 150 mg PO QDAY Qty: 2 2RF hydrocodone-acetaminophen 5-325 mg tablet 1 tab PO Q8H MDD 15 PRN (Reason: pain) Qty: 14 0RF Rx Instructions: Take 1 tablet as needed for pain every 8th hrly atorvastatin 20 mg tablet 20 mg PO DAILY Qty: 30 3RF hydrocodone-acetaminophen 5-325 mg tablet 1 tab PO BID MDD 2 tablets PRN (Reason: pain) Qty: 14 0RF Wegovy 0.5 mg/0.5 mL pen injector 0.5 mg subcut QWEEK Qty: 2 0RF Rx Instructions: administer weeks 5 through 8 of therapy pregabalin 100 mg capsule 100 mg PO TID Qty: 90 0RF Eliquis 5 mg tablet 5 mg PO BID Qty: 60 0RF ergocalciferol (vitamin D2) 1,250 mcg (50,000 unit) capsule 1,250 mcg PO QWEEK meloxicam 7.5 mg tablet 15 mg PO QDAY albuterol sulfate 90 mcg/actuation HFA aerosol inhaler 2 inh INHALATION Q6H PRN (Reason: wheeze) naloxone [Narcan] 4 mg/actuation spray,non-aerosol 4 mg intranasal Q2M PRN (Reason: opioid overdose) Qty: 2 0RF Rx Instructions: spray 1 dose into ONE nostril; alternate nostrils w each dose until help arrives pantoprazole 40 mg tablet,delayed release (DR/EC) 40 mg PO DAILY Referrals: No Primary/Family,Physician [Primary Care Provider] - In 1 week Problem List Clinical Impression: Sepsis, Cellulitis Patient/Caregiver Discharge Instructions Print Language: Belarusian Stand Alone Forms: Cami Award Info., Patient Portal Info Letter
--- NOTE | 2024-12-13 20:26 | XR_ITS ---
EXAMINATION: AP chest single view TECHNIQUE: AP portable semiupright chest single view Date and time: December 132026 hours INDICATIONS: Chest pain shortness of breath leg swelling and feet swelling 1 day FINDINGS: No significant cardiac enlargement Mild vascular congestion. Minor subsegmental atelectasis or scarring left base No interval pneumonia or pulmonary edema Prominent osteopenia IMPRESSION: Negative for CHF Prominent osteopenia
[2024-12-13 20:30] VITALS: BP 91/38; RESP 16; TEMP 36.8; O2SAT 97
[2024-12-13 20:38] LABS: Basophils # (Auto) 0.1 Thou/mm3 (0.0-0.2); Basophils % (Auto) 1 % (0-2.5); Eosinophils # (Auto) 0.0 Thou/mm3 (0.0-0.5); Eosinophils % (Auto) 0 % (0-10); Hematocrit 32.6 % (36.0-46.0); Hemoglobin 10.2 g/dL (12.0-16.0); Immature Granulocytes Auto 0.16 Thou/mm3 (0.00-0.00); Lymphocytes # (Auto) 2.5 Thou/mm3 (1.0-4.8); Lymphocytes % (Auto) 27 % (10-50); Mean Corpuscular HGB Conc 31.3 g/dl (31.0-37.0); Mean Corpuscular Hemoglobin 31.7 pg (25.0-35.0); Mean Corpuscular Volume 101 fL (80-100); Monocytes # (Auto) 1.2 Thou/mm3 (0.0-0.8); Monocytes % (Auto) 13 % (0-12); Neutrophils # (Auto) 5.5 Thou/mm3 (1.8-7.7); Neutrophils % (Auto) 58 % (37-80); Nucleated Red Blood Cell # 0.00 Thou/mm3 (0.00-0.00); Nucleated Red Blood Cell % 0 /100 WBC (0); Platelet Count 239 Thou/mm3 (140-440); RDW Standard Deviation 75.2 fL (36.4-46.3); Red Blood Count 3.22 Miln/mm3 (4.00-5.20); White Blood Count 9.5 Thou/mm3 (3.6-11.0)
[2024-12-13 20:53] LABS: Lactate (Lactic Acid) 8.5 mMol/L (0.4-2.0)
[2024-12-13 21:02] LABS: Alanine Aminotransferase 72 U/L (10-49); Albumin, Serum 2.3 gm/dL (3.4-4.8); Albumin/Globulin Ratio 0.7 (1.2-2.2); Alkaline Phosphatase 239 U/L (46-116); Anion Gap 14 (7-16); Aspartate Amino Transferase 110 U/L (0-34); BUN/Creatinine Ratio 17 Ratio (12-20); Bilirubin,Total 1.6 mg/dL (0.3-1.2); Blood Urea Nitrogen 20 mg/dL (9-23); Calcium 7.7 mg/dL (8.3-10.6); Calcium (Corrected) 9.1 mg/dL (8.5-10.1); Carbon Dioxide 19.7 mMol/L (20.0-31.0); Chloride 94 mMol/L (98-107); Creatinine (Component) 1.2 mg/dL (0.6-1.3); Estimated Creatinine Clearance 70.4 mL/min (>60); Globulin 3.2 gm/dL (2.3-3.5); Glucose 109 mg/dL (74-106); Osmolality,Calculated 260 (275-295); Potassium 3.1 mMol/L (3.4-5.1); Sodium 128 mMol/L (136-145); Total Protein 5.5 gm/dL (5.7-8.2); Troponin I < 0.002 ng/mL (0.0-0.045); eGFR 51 See Note
[2024-12-13 21:06] LABS: B-Type Natriuretic Peptide 92 pg/mL (0-100)
[2024-12-13] MEDS: cefTRIAXone/D5w 1gm IV premix 1 GM/50 ML BAG IV (21:25)
[2024-12-13] MEDS: SODIUM CHLORIDE 0.9% 1000 ML 1,000 ML 999 ML IV ×3 (21:26→22:39)
[2024-12-13 21:31] VITALS: BP 85/46; PULSE 102; RESP 22; O2SAT 95
[2024-12-13] MEDS: VANCOMYCIN/NS 1 GM IVPB 200 ML IV ×2 (21:52→23:37)
[2024-12-13 22:40] VITALS: BP 87/50; PULSE 100; RESP 18; O2SAT 94
[2024-12-13 23:32] LABS: Reflex Lactate? Y
[2024-12-14] VITALS (179 sets, daily range): BP systolic 49–147; BP diastolic 19–95; PULSE 76–125; RESP 12–92; TEMP 36.3–37; O2SAT 73–100
[2024-12-14 00:39] LABS: Lactic Acid, 3 HR 6.0 mMol/L (0.4-2.0)
[2024-12-14 00:49] LABS: Lactate (Lactic Acid) 5.4 mMol/L (0.4-2.0)
[2024-12-14 01:22] LABS: Magnesium 1.6 mg/dL (1.6-2.6)
--- NOTE | 2024-12-14 01:42 | XR_ITS ---
Examination: CT abdomen and pelvis without contrast. Coronal 3-D reconstructions. Sagittal 2-D reconstructions. Date and time of exam: December 14, 2024, 0306 hours INDICATIONS: Onset abdominal pain beginning 1 week ago CTDI: vol (mGy): 22.01 DLP: (mGycm): 1427 Technique: Axial images of the abdomen have been obtained, 3 mm slice thickness Intravenous contrast material has not been administered. Low dose protocols were performed. One or more of the following dose reduction techniques were used; automated exposure control, adjustment of the mA and/or KV according to patient size, use of iterative reconstruction technique. Findings: Severe diffuse fatty infiltration throughout the liver, hepatomegaly 24 cm, spleen AP dimension 15 cm Absent gallbladder No pancreatic mass Moderate renal scar formation, no hydronephrosis Multiple minute fat-containing anterior abdominal wall hernia defects, not containing bowel, no bowel obstruction No pericecal inflammatory change Scattered colonic diverticulosis, no diverticulitis 38 mm fat-containing umbilical hernia Atrophic uterus Urinary bladder intact Severe osteopenia Moderate diffuse lumbar degenerative disc disease Moderate narrowing hip joints Partial visualization of intramedullary left femoral suzanna Diffuse edema in the subcutaneous fatty tissue which may relate to primary hepatocellular disease IMPRESSION: Hepatosplenomegaly Severe diffuse fatty infiltration throughout the liver No bowel obstruction Colonic diverticulosis, no diverticulitis Multiple fat-containing hernia defects as above
[2024-12-14] MEDS: POTASSIUM CHLORIDE 10% 20 MEQ/15 ML UDC 80 MEQ PO (02:44)
[2024-12-14] MEDS: RINGERS LACTATED 1000 ML 1,000 ML 999 ML IV (02:45)
[2024-12-14] MEDS: POTASSIUM CHL 10 mEq IVPB 10 MEQ/100 ML BAG 100 MEQ IV (02:45)
--- NOTE | 2024-12-14 02:50 | ESHP_ITS ---
Documentation for date of: 12/14/24 [facility] History of Present Illness Chief complaint: Bilateral leg swelling History of present illness: The is a 64 years old female with PMH of alcoholic liver cirrhosis, unprovoked DVT on Eliquis, chronic back pain, hypothyroidism, depression, osteoarthritis, alcohol use disorder presented to ED with worsening bilateral leg swelling and pain. She complains of she has been experiencing worsening swelling in the bilateral legs for the last 2 weeks and experiencing pain since last week. She also complains she had on and off shortness of breath but endorses worsening shortness of breath associated with chest pain squeezing in nature 10 out of 10 on a pain scale, nonradiating since 1 day which prompted her to the ED visit. When paramedics came she complained of chest pain for which they gave 2 doses of nitroglycerin before they brought to the hospital. At her baseline she does not use the oxygen and usually does not walk. She denies any palpitations, dizziness, urinary frequency, urinary urgency, burning micturition, nausea, vomiting, melena, recent trauma. Today ED visit vitals initial blood pressure 91/40, pulse 112, respiratory 16, temperature 98.3, saturating 97% on 2 L of nasal cannula Pertinent lab findings hemoglobin 10.2, hematocrit 32.6, MCV 101, RDW 75.2, sodium 128, chloride 94, potassium 3.1, bicarbonate 19.7, initial lactic acid 8.5, total bilirubin 1.6, AST 110, ALT 72, ALP 239. Pertinent imaging findings CT abdomen showing fatty liver, steatohepatitis, colonic diverticulosis without diverticulitis and multiple ventral wall fat- containing hernias Treatment given in ED 3 L of NS and started on ceftriaxone and vancomycin. Past medical history: As stated above Past surgical history: History of varicose vein surgery, gastric bypass, cholecystectomy. Allergic history: Allergic to penicillin and Ativan Family history: Noncontributory Social history: Endorses daily alcohol consumption and half a pack cigarette consumption Review of Systems Review of Systems Systems Reviewed: All systems reviewed, normal except as documented Exam Vital Signs Temp Pulse Resp BP Pulse Ox O2 Del Method O2 Flow Rate 98.3 F 98 18 110/95 H 97 Nasal Cannula 2 12/13/24 20:30 12/14/24 01:55 12/14/24 01:55 12/14/24 01:55 12/14/24 01:55 12/14/24 01:55 12/14/24 01:55 Narrative Exam GENERAL: NAD, AAOx3 HEENT: Moist mucosa. Eyes open, symmetrical, & clear CARDIO: Rapid regular rhythm Noted. No Murmurs. PULM: No noted coughing/dyspnea CTA B/L, no R/W/R GI: Abdomen soft, nondistended, Tenderness on palpation of RUQ. SKIN/MSK/EXT: No wounds/rashes/amputations, no pain on palpation.Edema on B/L legs upto knee 3+. Bilateral Eythema ,Redness ,Warm and Tender to Touch.Pedal pulses present B/L NEURO: AAOx3, no focal neuro deficits, able to move all 4 extremities Results: Labs 12/14/24 04:40 12/14/24 04:40 Labs: Short CBC 12/13/24 Range/Units 20:15 WBC 9.5 (3.6-11.0) Thou/mm3 Hgb 10.2 L (12.0-16.0) g/dL Hct 32.6 L (36.0-46.0) % Plt Count 239 (140-440) Thou/mm3 BMP 12/13/24 20:15 Sodium 128 L Potassium 3.1 L Chloride 94 L Carbon Dioxide 19.7 L BUN 20 Creatinine 1.2 Glucose 109 H Calcium 7.7 L Cardiac Enzymes 12/13/24 Range/Units 20:15 Troponin I < 0.002 (0.0-0.045) ng/mL Liver Function 12/13/24 Range/Units 20:15 Total Bilirubin 1.6 H (0.3-1.2) mg/dL AST 110 H (0-34) U/L ALT 72 H (10-49) U/L Alkaline Phosphatase 239 H (46-116) U/L Albumin 2.3 L (3.4-4.8) gm/dL Quality Measures Quality Measures VTE prophylaxis and sepsis Current suspected stage: septic shock (LA >4 and/or hypotension) Sepsis reassessment completed at (date): 12/15/24 Sepsis reassessment completed at (time): 06:30 Possible source: skin/soft tissue Blood cultures ordered: yes Antibiotic ordered: Yes Medications Home Medications and Allergies Home Medications ?Medication ?Instructions ?Recorded ?Confirmed ?Type ergocalciferol (vitamin D2) 1,250 1,250 mcg PO QWEEK 0 05/18/24 12/14/24 History mcg (50,000 unit) capsule meloxicam 7.5 mg tablet 15 mg PO QDAY 05/18/2412/14 History Held on 12/14/24. Instructions: Doctor's Order pantoprazole 40 mg tablet,delayed 40 mg PO DAILY 06/0112/14/24 History release Allergies Allergy/AdvReac Type Severity Reaction Status Date / Time Penicillins Allergy Severe Anaphylaxis Verified 12/13/24 19:53 lorazepam (From Ativan) Allergy Verified 12/13/24 19:53 erythromycin base AdvReac Intermediate Abdominal Verified 12/13/24 19:53 Pain Visit Medications Lactated Ringer's (Lactated Ringers) 1,000 mls @ 999 mls/hr IV .Q1H1M ONE Stop: 12/14/24 03:12 Last Admin: 12/14/24 02:45 Dose: 999 mls/hr Pharmacy Consult (Vancomycin Pharmacy To Dose 1 Each Each) 1 each IV QDAY DA Stop: 01/13/25 08:59 Discontinued Medications Ceftriaxone Sodium/Dextrose (Rocephin/D5w 1gm Iv Premix) 1 gm in 50 mls @ 100 mls/hr IV X1 ONE Stop: 12/13/24 21:23 Last Infusion: 12/13/24 21:56 Dose: Infused Sodium Chloride (Ns) 1,000 mls @ 999 mls/hr IV .Q1H1M ONE Stop: 12/13/24 21:55 Last Infusion: 12/13/24 22:34 Dose: Infused Vancomycin/Sodium Chloride (Vancomycin/Ns 1 Gm Ivpb) 200 mls @ 120 mls/hr IV .Q1H40M DA Stop: 12/14/24 00:34 Last Infusion: 12/14/24 01:24 Dose: Infused Sodium Chloride (Ns) 1,000 mls @ 999 mls/hr IV .Q1H1M ONE Stop: 12/13/24 22:01 Last Infusion: 12/13/24 22:34 Dose: Infused Sodium Chloride (Ns) 1,000 mls @ 999 mls/hr IV .Q1H1M ONE Stop: 12/13/24 23:04 Last Infusion: 12/13/24 23:42 Dose: Infused Potassium Chloride (Kcl Ivpb) 10 meq in 100 mls @ 100 mls/hr IV X1 ONE Stop: 12/14/24 01:51 Last Admin: 12/14/24 02:45 Dose: 100 mls/hr Potassium Chloride (Potassium Chloride 10% 20 Meq/15 Ml Udc) 80 meq PO X1 ONE Stop: 12/14/24 02:21 Last Admin: 12/14/24 02:44 Dose: 80 meq Assessment & Plan Plan The is a 64 years old female with PMH of alcoholic liver cirrhosis, unprovoked DVT on Eliquis, chronic back pain, hypothyroidism, depression, osteoarthritis, alcohol use disorder . She was admitted for bilateral leg cellulitis. # Septic shock # Bilateral leg cellulitis # Hypotension Prior hospital my action in the May for the similar complaints. Progressive worsening of swelling in the bilateral legs associated with pain Red, warm and erythematous to touch. -Initial blood pressure is 91/38 probably due to the 2 doses of nitroglycerin and after 3 L of bolus NS it was increased to 140/86 and around 4:30 AM the MAP is around 58. Continuing her IV fluids and ordered 10 mg of midodrine. -Initial lactate was 8.5--> 6--> 5.4-->5.7. Given 3 L in ED ?Starting on 1 L of of Ringer lactate ?Continue to monitor her lactic acid. ?Starting on vancomycin and ceftriaxone for her bilateral leg cellulitis - Patient's condition remains critical with low threshold for ICU upgrade, case discussed with ICU residents for possible vasopressors need. #Atypical Chest pain. Complaints of squeezing chest pain 10 out of 10 on pain scale relieved on taking nitroglycerin medication Troponin and EKG at admission looks normal ?Troponin repeated after few hours which is in normal range ? Most likely it is not cardiac # Hypokalemia # Hyponatremia # Hypokalemia Initial potassium is 2.9, sodium 128, chloride 94 No EKG findings of hyperkalemia. She got 3 L of normal saline in ED ?Given 80 trey equivalents of potassium chloride syrup -continue to monitor #Acute Hypoxia # ? COPD exacerbation Denies any cough production, increased sputum Worsening shortness of breath since last 2 days ?Currently on 2 L of oxygen in ED ?Oxygen as required ?DuoNebs as required # Cirrhosis secondary to alcohol usage # Transaminitis AST 110, ALT 72, ALP 230, total bilirubin 1.6 Complaints of right upper quadrant tenderness CT abdomen showing steatohepatitis. No signs of CBD dilatation ?Continue to monitor # History of DVT Takes Eliquis 5 mg per oral daily # Continue her medication # Hypothyroidism Takes levothyroxine at home ?Continue to monitor # Alcohol use disorder History of daily drinking Currently no symptoms alcohol withdrawal ?Consider starting on CIWA protocol has required # Active smoking Smokes half a pack a day ?Educated on smoking Code status: DNR DVT prophylaxis: Elliquis Diet:Regular Diet Trejo: None Lines: PIV Supplemental O2: 2L of Nasal Canula Disposition: Tele I discussed this case with my senior Dr. Garces and my attending Dr. Nick Madrid MD PGY1 Attending Provider Attestation/Addendum After examination of the patient and review of the clinical data I feel that this patient needs admission to the hospital for further treatment/evaluation. TOTAL CC TIME: 60 MIN TOTAL TIME: 60 Minutes of direct medical management and planning of care. I Rylie Romero MD, attest that I was physically present for meza portions of evaluation, and examined patient, labs and imagings and plan of care were discussed with IM residents team, and I agree with the findings and plans documented above.
[2024-12-14 02:51] LABS: Anion Gap 11 (7-16); BUN/Creatinine Ratio 21 Ratio (12-20); Blood Urea Nitrogen 19 mg/dL (9-23); Calcium 7.0 mg/dL (8.3-10.6); Carbon Dioxide 21.7 mMol/L (20.0-31.0); Chloride 101 mMol/L (98-107); Creatinine (Component) 0.9 mg/dL (0.6-1.3); Estimated Creatinine Clearance 93.9 mL/min (>60); Glucose 85 mg/dL (74-106); Osmolality,Calculated 269 (275-295); Potassium 2.9 mMol/L (3.4-5.1); Sodium 134 mMol/L (136-145); Troponin I < 0.002 ng/mL (0.0-0.045); eGFR > 60 See Note
[2024-12-14 03:41] LABS: Reflex Lactate? Y
[2024-12-14 04:05] LABS: Lactic Acid, 3 HR 5.7 mMol/L (0.4-2.0)
--- NOTE | 2024-12-14 04:10 | PC.NURSE ---
CRITICAL VALUE LACTIC OF 5.7 MD CABA MADE AWARE. ALSO MADE AWARE THAT PT HAS BEEN HYPOTENSIVE, NO NEW ORDERS AT THIS TIME
--- NOTE | 2024-12-14 04:22 | PC.NURSE ---
DR BORJA AWARE OF LOW BP IN PT. NO ORDERS AT THIS TIME
--- NOTE | 2024-12-14 04:26 | PRELIM_ITS ---
Ultrasound Abdomen with Doppler and wave Doppler spectral analysis. December 14, 2024 at 0210 hours Clinical history: Elevated LFT. Technique: Grayscale and color flow images of the abdomen are provided. Hepatic and portal veins were also imaged with color flow images. Comparison: Reference is made to the prior CT report dated June 01, 2024. Findings: Very limited study due to the patient body habitus and bowel gas. Liver steatosis. Hepatomegaly. The gallbladder is surgically absent as per prior CT report (not visualized on the submitted images). The common bile duct measures 1 cm, which is within normal limits in a post cholecystectomy state. The IVC is patent with normal wave Doppler spectral analysis. The portal vein is patent with hepatopetal flow and normal wave Doppler spectral analysis. Impression: Very limited study. Consider correlation with CT or MRI. Hepatomegaly associated with liver steatosis, suspicious for steatohepatitis. Report Electronically Signed By: Freddy Alonzo 12/14/2024 4:25:32 AM [EST]
--- NOTE | 2024-12-14 04:34 | PRELIM_ITS ---
CT scan of the abdomen and pelvis without intravenous contrast (axial sections with sagittal and coronal reformats) December 14, 2024 at 03:06 hours Clinical History: Abdominal pain. Reference is made to the prior report dated June 01, 2024. No prior images available at the time of interpretation. Findings: The evaluation is limited due to the absence of intravenous contrast. Dependent atelectasis is seen at the visualized lung bases with small patchy ground-glass opacity. There is no pleural effusion. There is hepatosplenomegaly. Fatty infiltration of the liver is noted. Mild hepatic irregular margins are seen, which may be related to associated chronic liver parenchymal disease. The gallbladder is surgically absent. The adrenal glands and pancreas are unremarkable. Nonspecific perinephric fat stranding is noted bilaterally. Chronic postoperative changes are seen in the stomach. There is no bowel obstruction. A moderate amount of fecal material is seen in the colon. There are occasional colonic diverticula without evidence of diverticulitis. The appendix is not visualized; however, there is no evidence of inflammatory process in the right lower quadrant to suggest appendicitis. There is mild submucosal fat proliferation in the cecum, ascending colon, and right transverse colon without obvious adjacent fat stranding, which may be secondary to chronic colitis. The urinary bladder is unremarkable. The uterus is unremarkable. There is no adnexal mass. The abdominal aorta and its branches demonstrate mild atheromatous changes. There are fat-containing small ventral abdominal wall hernias, without obvious adjacent inflammatory changes. Diffuse subcutaneous soft tissue edema of the abdomen and pelvis is seen. There is osteopenia. Degenerative changes are seen in the spine. Chronic postoperative changes are seen in the proximal left femur with an intramedullary suzanna. Impression: 1. Hepatosplenomegaly with fatty liver and chronic liver parenchymal disease. 2. No evidence of bowel obstruction. 3. Colonic diverticulosis without evidence of diverticulitis. 4. Fat-containing multiple small ventral abdominal wall hernias as described. Recommend clinical correlation. 5. Multiple other findings as described above. Report Electronically Signed By: Gisella Livingston 12/14/2024 4:33:17 AM [EST]
[2024-12-14 04:51] LABS: Basophils # (Auto) 0.1 Thou/mm3 (0.0-0.2); Basophils % (Auto) 1 % (0-2.5); Eosinophils # (Auto) 0.1 Thou/mm3 (0.0-0.5); Eosinophils % (Auto) 1 % (0-10); Hematocrit 32.1 % (36.0-46.0); Hemoglobin 9.7 g/dL (12.0-16.0); Immature Granulocytes Auto 0.14 Thou/mm3 (0.00-0.00); Lymphocytes # (Auto) 1.3 Thou/mm3 (1.0-4.8); Lymphocytes % (Auto) 16 % (10-50); Mean Corpuscular HGB Conc 30.2 g/dl (31.0-37.0); Mean Corpuscular Hemoglobin 31.4 pg (25.0-35.0); Mean Corpuscular Volume 104 fL (80-100); Monocytes # (Auto) 1.2 Thou/mm3 (0.0-0.8); Monocytes % (Auto) 14 % (0-12); Neutrophils # (Auto) 5.6 Thou/mm3 (1.8-7.7); Neutrophils % (Auto) 66 % (37-80); Nucleated Red Blood Cell # 0.00 Thou/mm3 (0.00-0.00); Nucleated Red Blood Cell % 0 /100 WBC (0); Platelet Count 193 Thou/mm3 (140-440); RDW Standard Deviation 77.0 fL (36.4-46.3); Red Blood Count 3.09 Miln/mm3 (4.00-5.20); White Blood Count 8.5 Thou/mm3 (3.6-11.0)
[2024-12-14 05:16] LABS: Alanine Aminotransferase 71 U/L (10-49); Albumin, Serum 2.0 gm/dL (3.4-4.8); Albumin/Globulin Ratio 0.7 (1.2-2.2); Alkaline Phosphatase 231 U/L (46-116); Anion Gap 10 (7-16); Aspartate Amino Transferase 108 U/L (0-34); BUN/Creatinine Ratio 19 Ratio (12-20); Bilirubin,Total 1.7 mg/dL (0.3-1.2); Blood Urea Nitrogen 19 mg/dL (9-23); Calcium 7.5 mg/dL (8.3-10.6); Calcium (Corrected) 9.1 mg/dL (8.5-10.1); Carbon Dioxide 22.7 mMol/L (20.0-31.0); Cardiac Risk Estimate 26.0 RATIO (3.7-5.6); Chloride 102 mMol/L (98-107); Cholesterol 130 mg/dL (132-200); Creatinine (Component) 1.0 mg/dL (0.6-1.3); Estimated Creatinine Clearance 84.5 mL/min (>60); Globulin 3.0 gm/dL (2.3-3.5); Glucose 103 mg/dL (74-106); HDL Cholesterol < 5 mg/dL (40-60); LDL Cholesterol,Calculated 50 mg/dL (0-130); Magnesium 1.7 mg/dL (1.6-2.6); Osmolality,Calculated 272 (275-295); Potassium 4.6 mMol/L (3.4-5.1); Sodium 135 mMol/L (136-145); Thyroid Stimulating Hormone 6.59 uIU/mL (0.55-4.78); Total Protein 5.0 gm/dL (5.7-8.2); Triglycerides 374 mg/dL (30-150); eGFR > 60 See Note
[2024-12-14] MEDS: MIDODRINE 5 MG TABLET 10 MG PO ×2 (05:40→07:28)
[2024-12-14 05:53] LABS: Collection Type, Urine Voided
[2024-12-14 06:07] LABS: Amorphous Crystals,Urine Present (Absent); Bacteria,Urine Rare; Bilirubin,Urine Negative (Negative); Blood,Urine 2+ (Negative); Clarity,Urine Turbid (Clear/Hazy); Color,Urine Yellow (Lt Yel-Yel); Glucose, Urine Negative (Negative); Ketones,Urine Negative (Negative); Leukocyte Esterase,Urine Positive (Negative); Nitrite,Urine Negative (Negative); PH,Urine 6.0 (5.0-7.0); Protein,Urine Trace (Neg - Trace); RBC,Urine 25 /hpf (0-3); Specific Gravity,Urine 1.011 (1.001-1.035); Squamous Epithelial Cell,Urine 7 /hpf (0-5); Urobilinogen,Urine 2.0 mg/dL (0.0-1.0); WBC,Urine 18 /hpf (0-5)
--- NOTE | 2024-12-14 06:40 | PC.NURSE ---
CALL MADE TO PHARMACY TO BRING DOWN PTS MEDICATION DURGAA
--- NOTE | 2024-12-14 06:46 | XR_ITS ---
EXAMINATION: AP chest single view TECHNIQUE: AP portable semiupright chest single view Date and time: December 14, 2024, 0732 hours, comparison December 13, 2024 INDICATIONS: Worsening shortness of breath today FINDINGS: Normal heart size Mild vascular congestion. Mild opacity left base Significant osteopenia IMPRESSION: Early pneumonia left base
[2024-12-14 07:00] LABS: Free T4 (Free Thyroxine) 0.84 ng/dL (0.89-1.76)
[2024-12-14] MEDS: SODIUM CHLORIDE 0.9% 500 ML 500 ML 250 ML IV (07:24)
[2024-12-14] MEDS: LEVOTHYROXINE SODIUM 25 MCG TABLET 50 MCG PO (07:27)
--- NOTE | 2024-12-14 07:50 | PC.NURSE ---
albumin, lyrica, and cymbalta not given to this pt at this time, due to no stock in the pixis in the ER, I already called pharmacy and spoke to Parul to reported that they will bring meds down as soon as they can
[2024-12-14] MEDS: APIXABAN 2.5 MG TABLET 5 MG PO ×2 (08:01→21:20)
[2024-12-14] MEDS: PANTOPRAZOLE 40 MG TABLET PO (08:02)
--- NOTE | 2024-12-14 08:55 | XR_ITS ---
Examination: Venous duplex lower extremity sonogram, bilateral. Date and time of exam: December 14, 2024, 0927 hours INDICATIONS: Bilateral leg pain beginning 1 month ago Technique: Multiple sonographic images of the deep venous system have been obtained. B-mode/2-D grayscale imaging of vascular structures and Doppler spectral analysis (waveforms) and color performed Both legs are examined. Findings: Deep venous systems do not demonstrate abnormal echogenicity. Left popliteal vein obscured by edema All visualized deep veins exhibit compressibility. All visualized deep veins exhibit augmentation. Impression: No DVT demonstrated
--- NOTE | 2024-12-14 08:57 | PC.NURSE ---
I CALLED AND SPOKE TO DR. COSTA TO LET HIME KNOW OF PT CURRENT B/P AT THIS TIME 77/41, PER DR. COSTA, WANT TO WAIT FOR THE ALBUMIN TO INFUSE AND THEN RECHECK B/P, PT NO IN ANY DISTRESS AT THIS TIME, GCS15 A&O X4
[2024-12-14] MEDS: PREGABALIN 25 MG CAPSULE 100 MG PO ×3 (09:39→21:20)
[2024-12-14] MEDS: DULoxetine HCL 30 MG CAPSULE 60 MG PO (09:40)
[2024-12-14] MEDS: Magnesium Sulfate 4 GM Ivpb 4 GM/50 ML BAG IV (09:44)
[2024-12-14] MEDS: ALBUMIN HUMAN 5% IVPB 12.5 GM/250 ML BTL IV (10:23)
[2024-12-14 10:50] LABS: Lactate (Lactic Acid) 4.9 mMol/L (0.4-2.0)
[2024-12-14] MEDS: VANCOMYCIN/D5W 1500 MG IVPB 300 ML 120 MG IV ×2 (11:24→22:30)
[2024-12-14 13:09] LABS: Reflex Lactate? Y
[2024-12-14] MEDS: Norepinephrine/D5W 8mg/250ml 8 MG/250 ML BAG 13.82 MG IV (13:15)
[2024-12-14 13:30] LABS: Base Excess, Venous 0 (-3-3); O2 Saturation, Venous 100 % (96-97); PCO2, Venous 38 mmHg (36-56); PO2, Venous 120 mmHg (15-58); pH, Venous 7.42 (7.33-7.66)
[2024-12-14 13:34] LABS: Lactate (Lactic Acid) 4.0 mMol/L (0.4-2.0)
--- NOTE | 2024-12-14 14:12 | XR_ITS ---
Examination: CT examination: CT bilateral lower extremities with contrast,. 2-D sagittal reconstructions. 2-D coronal reconstructions. 3-D reconstructions. Date and time of exam: December 14, 2024, 1659 hours INDICATIONS: Necrotizing fasciitis lower leg swelling and pain today CTDI: vol (mGy): 17.2 DLP: (mGycm): 1839 Technique: Multiple 1.25 mm axial sections of the 60 cc Isovue-370 have been obtained. 2-D sagittal and coronal reconstructions have been obtained. 3-D reconstructions have been obtained. Low dose protocols were performed. One or more of the following dose reduction techniques were used; automated exposure control, adjustment of the mA and/or KV according to patient size, use of iterative reconstruction technique. Findings: Diffuse edema in the lower extremities surrounding the thigh region bilaterally with skin thickening No soft tissue abscess No cortical bone destruction involving the tibia fibula or right or left femur Atrophy of the extensor and flexor muscles Urinary bladder intact No free fluid in the pelvis IMPRESSION: Severe diffuse edema in the subcutaneous fatty tissues surrounding both lower extremities. No soft tissue fluid filled drainable abscess Negative for osteomyelitis
--- NOTE | 2024-12-14 15:07 | PC.NURSE ---
UNABLE TO GIVE MEDS AT THIS TIME DUE TO CENTRAL LINE PLACEMENT
--- NOTE | 2024-12-14 15:30 | XR_ITS ---
EXAMINATION: AP chest single view TECHNIQUE: AP portable supine chest single view Date and time: December 14, 2024, 1533 hours, comparison December 14, 2024 0732 hours INDICATIONS: Post central line placement FINDINGS: Interval right internal jugular central line tip SVC, no pneumothorax Mild opacity left base No significant cardiac enlargement IMPRESSION: Interval right internal jugular central line, tip in satisfactory position, no pneumothorax
[2024-12-14] MEDS: CLINDAMYCIN/NS 600 MG IVPB 600 MG/50 ML BAG 100 MG IV ×2 (15:59→21:19)
[2024-12-14 16:28] LABS: Reflex Lactate? Y
[2024-12-14 17:09] LABS: C-Reactive Protein 6.3 mg/dL (0.0-0.9)
--- NOTE | 2024-12-14 17:11 | ESOP_ITS ---
<Statement entered by Luiza Crum MD - 12/16/24 18:52> I was present for the critical and meza portions of the procedure and was immediately available to provide assistance. PROCEDURES: Procedure Date / Time 12/14/24 15:15 Procedural Time Out Time out performed: 15:00 Procedure Narrative Procedure Narrative: Right IJ Central line Placement A time out was performed at 15:00. My hands were washed immediately prior to the procedure. I wore a surgical cap, mask with protective eyewear, full gown and sterile gloves throughout the procedure. The patient was placed in Trendelenburg position. Right chest region was prepped using chlorhexidine scrub and draped in sterile fashion using a full drape and sterile probe cover and sterile gel employed. The medial and lateral heads of the sternocleidomastoid muscle were identified as was the carotid pulse. The Internal Jugular vein was identified using the ultrasound. Anesthesia was achieved over the vein using 1% lidocaine. Using real-time out of plane guidance, the introducer needle was inserted into the Internal Jugular vein under direct ultrasound visualization. Venous blood was withdrawn. The syringe was removed and a guidewire was advanced into the introducer needle. There was initial bounce back after the guide wire was inserted about 10 cm in. The guidewire was visualized in the Internal Jugular Vein by ultrasound. A small incision was made at the skin surface with a scalpel and the introducer needle was exchanged for a dilator over the guidewire. After appropriate dilation was obtained, the dilator was exchanged over the wire for a central venous catheter. The wire was removed and the catheter was sutured in place at appropriate depth. A sterile sorbaview shield was placed over the catheter at the insertion site. The patient tolerated the procedure without any hemodynamic compromise. At time of procedure completion, all ports aspirated and flushed properly. Post-procedure chest x-ray showed central line in satisfactory position, no pneumothorax. Estimated blood loss is 5ml. Patient plan of care was discussed with the attending physician, Dr. Crum & senior resident Dr. Luis Enrique Houser MD PGY-1 Central Line Placement Right IJ: Indication(s): shock Informed consent obtained: from patient Time out done, and the following verified: correct patient, side and site, procedure and patient position Patient placed on monitor/pulse ox: Yes Hand Hygiene: scrub and soap & water Max Sterile Barrier Techniques used: cap, mask, sterile gown and sterile gloves Central line prep: Chlorhexidine scrub and sterile drapes applied Local anesthesia used: lidocaine 1% Amount of anesthesia used (mL): 5 Ultrasound used for placement: Yes Sterile Technique if Ultrasound used, including sterile gel: yes Central line lumen inserted: triple Post procedure: sutured in place, good blood return, all ports aspirated, flushed, capped and sterile dressing applied Post procedure x-ray: tip of catheter in good position and no pneumothorax seen Patient tolerated procedure: well EBL(ml): 5 Complications: none
[2024-12-14 17:14] LABS: Lactic Acid, 3 HR 3.4 mMol/L (0.4-2.0)
[2024-12-14] MEDS: MEROPENEM INJ 1,000 MG in SODIUM CHLORIDE 0.9% (Popper) 50 ML 100 MG IV ×2 (17:19→21:19)
[2024-12-14 17:36] LABS: Ammonia 22 uMol/L (11-32)
[2024-12-14 17:58] LABS: Magnesium 2.2 mg/dL (1.6-2.6)
--- NOTE | 2024-12-14 18:39 | PD.RESHP ---
Documentation for date of: 12/14/24 Exam Vital Signs Temp Pulse Resp BP Pulse Ox O2 Del Method O2 Flow Rate 98.3 F 76 20 97/66 93 L Nasal Cannula 2 12/14/24 17:58 12/14/24 17:58 12/14/24 17:58 12/14/24 17:58 12/14/24 17:58 12/14/24 17:58 12/14/24 17:58 Results: Labs 12/14/24 04:40 12/14/24 04:40 Labs: Short CBC 12/13/24 12/14/24 Range/Units 20:15 04:40 WBC 9.5 8.5 (3.6-11.0) Thou/mm3 Hgb 10.2 L 9.7 L (12.0-16.0) g/dL Hct 32.6 L 32.1 L (36.0-46.0) % Plt Count 239 193 D (140-440) Thou/mm3 BMP 12/13/24 12/14/24 12/14/24 20:15 02:28 04:40 Sodium 128 L 134 L 135 L Potassium 3.1 L 2.9 L 4.6 D Chloride 94 L 101 102 Carbon Dioxide 19.7 L 21.7 22.7 BUN 20 19 19 Creatinine 1.2 0.9 1.0 Glucose 109 H 85 103 Calcium 7.7 L 7.0 L 7.5 L Cardiac Enzymes 12/13/24 12/14/24 Range/Units 20:15 02:28 Troponin I < 0.002 < 0.002 (0.0-0.045) ng/mL Liver Function 12/13/24 12/14/24 Range/Units 20:15 04:40 Total Bilirubin 1.6 H 1.7 H (0.3-1.2) mg/dL AST 110 H 108 H (0-34) U/L ALT 72 H 71 H (10-49) U/L Alkaline Phosphatase 239 H 231 H (46-116) U/L Albumin 2.3 L 2.0 L (3.4-4.8) gm/dL Urine 12/14/24 Range/Units 05:45 Urine Color Yellow (Lt Yel-Yel) Urine Clarity Turbid A (Clear/Hazy) Urine pH 6.0 (5.0-7.0) Ur Specific [place] 1.011 (1.001-1.035) Urine Protein Trace (Neg - Trace) Urine Glucose (UA) Negative (Negative) ABG Interpretation ABG results: 12/14/24 13:22 VBG pH 7.42 VBG pCO2 38 VBG pO2 120 H VBG Base Excess 0 Quality Measures Quality Measures sepsis Possible source: skin/soft tissue Blood cultures ordered: yes Medications Home Medications and Allergies Home Medications ?Medication ?Instructions ?Recorded ?Confirmed ?Type ergocalciferol (vitamin D2) 1,250 1,250 mcg PO QWEEK 05/18/24 12/14/24 History mcg (50,000 unit) capsule meloxicam 7.5 mg tablet 15 mg PO QDAY 05/18/24 12/14/24 History Held on 12/14/24. Instructions: Doctor's Order pantoprazole 40 mg tablet,delayed 40 mg PO DAILY 06/01/24 12/14/24 History release Allergies Allergy/AdvReac Type Severity Reaction Status Date / Time Penicillins Allergy Severe Anaphylaxis Verified 12/13/24 19:53 lorazepam (From Ativan) Allergy Verified 12/13/24 19:53 erythromycin base AdvReac Intermediate Abdominal Verified 12/13/24 19:53 Pain Visit Medications Acetaminophen (Acetaminophen 325 Mg Tablet) 650 mg PO Q6HR PRN PRN Reason: Fever >101.5 Stop: 01/13/25 04:35 Acetaminophen (Acetaminophen 325 Mg Tablet) 650 mg PO Q6HR PRN PRN Reason: PAIN SCALE 1-3 (mild Stop: 01/13/25 04:35 Albuterol/Ipratropium (Albuterol/Ipratropium (Duoneb) Rt [place] 3 Ml Nebu) 3 ml INH Q4HRRT PRN PRN Reason: wheezing Stop: 01/13/25 06:59 Apixaban (Apixaban 2.5 Mg Tablet) 5 mg PO BID DA Stop: 01/04/25 08:59 Last Admin: 12/14/24 08:01 Dose: 5 mg Ergocalciferol (Capsule 1.25 Mg) 0 ea PO QWEEK DA Stop: 01/13/25 10:59 Last Admin: 12/14/24 11:21 Dose: 1.25 capsule Folic Acid (Folic Acid 1 Mg Tablet) 1 mg PO BID [facility] Stop: 12/19/24 20:59 Vancomycin HCl/Dextrose (Vancomycin/D5w 1500 Mg Ivpb) 300 mls @ 120 mls/hr IV Q12H DA; Protocol Stop: 12/21/24 21:59 Albumin Human (Albuminar-5 Ivpb) 12.5 gm in 250 mls @ 100 mls/hr IV QDAY [facility] Stop: 01/13/25 09:44 Last Infusion: 12/14/24 12:59 Dose: Infused Norepinephrine/Dextrose (Levophed In D5w 8mg/250ml) 8 mg in 250 mls @ 13.82 mls/hr IV .Q18H6M PRN; Protocol PRN Reason: PER PROTOCOL Stop: 01/13/25 12:26 Last Titration: 12/14/24 17:00 Dose: 0.05 mcg/kg/min, 13.82 mls/hr Clindamycin/Sodium Chloride (Cleocin/Ns Ivpb) 600 mg in 50 mls @ 100 mls/hr IV Q8HR [facility] Stop: 12/21/24 14:16 Last Infusion: 12/14/24 16:44 Dose: Infused Meropenem 1,000 mg/ Sodium (Chloride) 50 mls @ 100 mls/hr IV Q8HR [facility] Stop: 12/21/24 14:29 Last Infusion: 12/14/24 17:56 Dose: Infused Levothyroxine Sodium (Levothyroxine Sodium 25 Mcg Tablet) 50 mcg PO ACBR [facility] Stop: 01/13/25 07:29 Last Admin: 12/14/24 07:27 Dose: 50 mcg Lidocaine (Lidocaine 5% 1 Patch) 1 patch TOP QDAY PRN PRN Reason: LOCALIZED PAIN Lorazepam (Lorazepam 0.5 Mg Tablet) 0.5 mg PO Q4HR PRN PRN Reason: CIWA Score 2-6 Stop: 12/19/24 11:56 Lorazepam (Lorazepam 0.5 Mg Tablet) 1 mg PO Q4HR PRN PRN Reason: CIWA SCORE 7-11 Stop: 12/19/24 11:56 Lorazepam (Lorazepam 0.5 Mg Tablet) 2 mg PO Q4HR PRN PRN Reason: CIWA SCORE 12-15 Stop: 12/19/24 11:56 Ondansetron HCl (Ondansetron Inj 2 Mg/Ml Inj 2 Ml) 4 mg IVP Q6H PRN; Protocol PRN Reason: NAUSEA OR VOMITING Stop: 01/13/25 04:35 Pantoprazole Sodium (Pantoprazole 40 Mg Tablet) 40 mg PO DAILY DA Stop: 01/13/25 08:59 Last Admin: 12/14/24 08:02 Dose: 40 mg Pharmacy Consult (Vancomycin Pharmacy To Dose 1 Each Each) 1 each IV QDAY PRN PRN Reason: PROTOCOL Stop: 01/13/25 08:59 Pregabalin (Pregabalin 25 Mg Capsule) 100 mg PO TID DA Stop: 01/13/25 08:29 Last Admin: 12/14/24 15:59 Dose: 100 mg Thiamine HCl (Thiamine 100 Mg Tablet) 100 mg PO BID DA Stop: 12/19/24 20:59 Discontinued Medications Acetaminophen (Acetaminophen 325 Mg Tablet) 650 mg PO Q6H PRN PRN Reason: Fever >101.5 Stop: 01/13/25 04:35 Acetaminophen (Acetaminophen 325 Mg Tablet) 650 mg PO Q6H PRN PRN Reason: PAIN SCALE 1-3 (mild Stop: 01/13/25 04:35 Duloxetine HCl (Duloxetine Hcl 30 Mg Capsule) 60 mg PO DAILY DA Stop: 01/13/25 08:59 Last Admin: 12/14/24 09:40 Dose: 60 mg Ceftriaxone Sodium/Dextrose (Rocephin/D5w 1gm Iv Premix) 1 gm in 50 mls @ 100 mls/hr IV X1 ONE Stop: 12/13/24 21:23 Last Infusion: 12/13/24 21:56 Dose: Infused Sodium Chloride (Ns) 1,000 mls @ 999 mls/hr IV .Q1H1M ONE Stop: 12/13/24 21:55 Last Infusion: 12/13/24 22:34 Dose: Infused Vancomycin/Sodium Chloride (Vancomycin/Ns 1 Gm Ivpb) 200 mls @ 120 mls/hr IV .Q1H40M DA Stop: 12/14/24 00:34 Last Infusion: 12/14/24 01:24 Dose: Infused Sodium Chloride (Ns) 1,000 mls @ 999 mls/hr IV .Q1H1M ONE Stop: 12/13/24 22:01 Last Infusion: 12/13/24 22:34 Dose: Infused Sodium Chloride (Ns) 1,000 mls @ 999 mls/hr IV .Q1H1M ONE Stop: 12/13/24 23:04 Last Infusion: 12/13/24 23:42 Dose: Infused Potassium Chloride (Kcl Ivpb) 10 meq in 100 mls @ 100 mls/hr IV X1 ONE Stop: 12/14/24 01:51 Last Infusion: 12/14/24 03:59 Dose: Infused Lactated Ringer's (Lactated Ringers) 1,000 mls @ 999 mls/hr IV .Q1H1M ONE Stop: 12/14/24 03:12 Last Infusion: 12/14/24 03:59 Dose: Infused Ceftriaxone Sodium/Dextrose (Rocephin/D5w 1gm Iv Premix) 1 gm in 50 mls @ 100 mls/hr IV HS DA Stop: 12/21/24 20:59 Sodium Chloride (Ns) 500 mls @ 250 mls/hr IV .Q2H ONE Stop: 12/14/24 09:05 Last Infusion: 12/14/24 09:46 Dose: Infused Albumin Human (Albuminar-5 Ivpb) 12.5 gm in 250 mls @ 100 mls/hr IV QDAY DA Stop: 12/18/24 07:45 Last Admin: 12/14/24 09:46 Dose: Not Given Vancomycin HCl/Dextrose (Vancomycin/D5w 1500 Mg Ivpb) 300 mls @ 120 mls/hr IV X1 ONE Stop: 12/14/24 12:29 Last Infusion: 12/14/24 13:56 Dose: Infused Magnesium Sulfate (Magnesium Sulfate Ivpb) 4 gm in 50 mls @ 12.5 mls/hr IV X1 ONE Stop: 12/14/24 12:51 Last Infusion: 12/14/24 13:31 Dose: Infused Midodrine (Midodrine 5 Mg Tablet) 10 mg PO X1 ONE Stop: 12/14/24 05:04 Last Admin: 12/14/24 05:40 Dose: 10 mg Midodrine (Midodrine 5 Mg Tablet) 10 mg PO X1 ONE Stop: 12/14/24 07:23 Last Admin: 12/14/24 07:28 Dose: 10 mg Midodrine (Midodrine 5 Mg Tablet) 10 mg PO TID DA Stop: 01/13/25 13:59 Last Admin: 12/14/24 15:34 Dose: Not Given (Ergocalciferol ( Vitamin D2) 1,250 Mcg (50,000 Unit) Capsule. 1 ea PO Fr DA Stop: 01/13/25 08:59 Last Admin: 12/14/24 10:26 Dose: Not Given Potassium Chloride (Potassium Chloride 10% 20 Meq/15 Ml Udc) 80 meq PO X1 ONE Stop: 12/14/24 02:21 Last Admin: 12/14/24 02:44 Dose: 80 meq Pregabalin (Pregabalin 50 Mg Capsule) 100 mg PO TID [facility] Stop: 01/13/25 05:59 Last Admin: 12/14/24 07:29 Dose: Not Given Sodium Chloride (Sodium Chloride Rt 10% 15 Ml Nebu) 5 ml INH X1 ONE Stop: 12/14/24 12:33
--- NOTE | 2024-12-14 19:53 | ESCONSULT_ITS ---
<Statement entered by Luiza Crum MD - 12/16/24 18:51> TOTAL CC TIME: 45 MIN I saw and evaluated the patient. I reviewed the resident?s note and agree with findings and plan as documented in the resident?s note. Upon my evaluation, this patient had a high probability of imminent or life- threatening deterioration due to septic shock, LE skin infx currently c/w cellulitis but with concern for deeper infx due to shock, luis enrique given compromished IS w/ cirrhosis, which required my direct attention, intervention, and personal management. This time is exclusive of time spent on procedures, which are documented separately if performed. 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 Patient reported that she had worsening lower extremity swelling and pain from last 2 weeks. She lives alone at home does not walk around and was not taking any medications/antibiotics for this swelling. She endorsed shortness of breath associated with chest pain from last 1 day which brought her to the ER. Patient does not use oxygen at home. Initially, patient's blood pressure was soft with no fever spikes with tachycardia and hypoxia requiring 2 L nasal cannula. Initial lactic acid was 8.5 with elevation in liver enzymes. Chest x-ray showed early left base opacification. CT abdomen showed colonic diverticulosis without diverticulitis and multiple ventral wall fat hernias. She received total 4-1/2 L of fluid resuscitation and antibiotics Rocephin and vancomycin. ICU was consulted due to MAP below 65 refractory to IV fluid. Patient was seen and examined in the ED she was feeling drowsy and short of breath from last couple of weeks. Limited bedside ultrasound revealed that IVC is not collapsible and not variable with inspiration/expiration. Levophed was started and antibiotics were escalated to meropenem and clindamycin with vancomycin due to concern for necrotizing fasciitis as patient was having excruciating pain up to thigh. LRINEC score 3(Low risk).Per chart review, echo from May 2024 showed EF 60-65% with diastolic dysfunction 1. RVSP 47 mmHg. Mild MR and aortic valve sclerosis. In June, patient had acute comminuted distal femoral shaft fracture repaired at [facility] on 08/03/24 and was sent to Rehab. General surgeon, Dr Zamudio has been consulted who stated that there is less likely concern for necrotizing fasciitis and recommended to treat cellulitis for now and follow-up with blood cultures & MRSA. CRP was mildly elevated. Right IJ central line was placed to continue Levophed. Patient has been requiring low-dose Levophed since upgrade to ICU. Lactic acid started getting down trended to 3.9. White count was not elevated. Hemoglobin stable. Macrocytic anemia noted. Midodrine was discontinued. Will continue trending LFTs. Ammonia was unremarkable. CPAP at night. TSH 6.59 and T4 0.84 Recommended to continue levothyroxine. VBG's were showing pH of 7.42, pCO2 38. Urine analysis was turbid with positive leukocyte esterase with mild WBCs and rare bacteria. Lower extremity CT showed diffuse edema in the subcutaneous fatty tissue surrounding both lower extremities no abscess and negative for osteomyelitis. Venous Doppler was negative. EKG revealed sinus rhythm with QTc 487. No acute ST-T changes. Repeat EKG showed QTc 431. With sinus tachycardia. Will keep mag above 2 and potassium above 4. Blood cultures are coming negative for 24 hours and MRSA screen was negative. Patient's home medications were resumed. Consider Norris if patient complains of severe pain. Continue CIWA protocol for alcohol withdrawal. Antibiotics will cover for left base pneumonia. Patient was unsure of urinary symptoms however UA was consistent with pyuria with positive leukocyte esterase. Follow-up with urine culture as well. All labs and orders were reviewed. I discussed and supervised with the internal controls consultant physician who took care of this patient. I personally saw and examined the patient. I agree with most of the assessment and plan. Disclaimer: Despite multiple revisions, due to the dictation software being used, the document bellow may not be free of grammatical errors including phonetic/typographic errors. However, this does not deter from our commitment to providing health care in the patient's best interest in mind. Plan of care discussed with attending Physician Dr. Radames Dudley MD PGY-3 HPI Data of Consult Requesting Physician: Rylie Romero MD Admitting Provider: Rylie Romero MD Attending Provider: Luiza Crum MD Primary Care Provider: Physician No Primary/Family Consult Narrative Reason for consult: shock requiring pressors History of present illness: The is a 64 years old female with PMH of alcoholic liver cirrhosis, 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 She complains of she has been experiencing worsening swelling in the bilateral legs for the last 2 weeks and experiencing pain since last week. She also complains she had on and off shortness of breath but endorses worsening shortness of breath associated with chest pain squeezing in nature 10 out of 10 on a pain scale, nonradiating since 1 day which prompted her to the ED visit. When paramedics came she complained of chest pain for which they gave 2 doses of nitroglycerin before they brought to the hospital. At her baseline she does not use the oxygen and usually does not walk. She denies any palpitations, dizziness, urinary frequency, urinary urgency, burning micturition, nausea, vomiting, melena, recent trauma. ED Course: vitals initial blood pressure 91/40, pulse 112, respiratory 16, temperature 98.3, saturating 97% on 2 L of nasal cannula. Pertinent lab findings hemoglobin 10.2, hematocrit 32.6, MCV 101, RDW 75.2, sodium 128, chloride 94, potassium 3.1, bicarbonate 19.7, initial lactic acid 8.5, total bilirubin 1.6, AST 110, ALT 72, ALP 239. Pertinent imaging findings CT abdomen showing fatty liver, steatohepatitis, colonic diverticulosis without diverticulitis and multiple ventral wall fat-containing hernias. Treatment given in ED 3 L of NS and started on ceftriaxone and vancomycin. Patient admitted and held in ED initially, upgraded to ICU for shock needing pressors. Interval History: 12/14/2024: Today patient was assessed in the emergency department. Stated that she feels feeling drowsy, said she has had a similar presentation with cellulitis in the past, but not this bad and has never needed to be in ICU. Today patient denied having any fevers chills sick contacts recently, chest pain. Patient endorsed shortness of breath on and off for last couple weeks, chronic cough for many years regarding COPD and back pain. Patient was found to have soft blood pressure with MAP hovering around 65. The decision was made to initiate Levophed. Patient had gotten to times midodrine 10 mg earlier in the day. Patient was consented for central line placement and right IJ central line was placed. cc:: cc: Rylie Romero MD Review of Systems Review of Systems Systems Reviewed: All systems reviewed, normal except as documented Past Medical History Past Medical History NEUROLOGIC: Negative Neurological Disorders, Dementia or Seizures CARDIAC: Positive Cardiac Disorders, Hypercholesterolemia, Deep Vein Thrombosis and Hypertension; Negative Atrial Fibrillation, Coronary Artery Disease or Congestive Heart Failure RESPIRATORY: Positive Chronic Obstructive Pulmonary Disease (COPD), Asthma, Bronchitis, Sleep Apnea, Smoking and Tobacco Use GASTROINTESTINAL: Positive Gastrointestinal Disorders, Cirrhosis, Diverticulitis, Diverticulosis, Hiatal Hernia, Gastroesophageal Reflux Disease and Obesity; Negative Celiac Disease GENITOURINARY: Negative Genitourinary Disorders or Renal Disease REPRODUCTIVE: Negative Pelvic Inflammatory Disease MUSCULOSKELETAL: Positive Musculoskeletal Disorders, Arthritis, Osteoporosis, Degenerative Disk Disease and Fractures; Negative Muscular Dystrophy or Bone Cancer ENT: Negative Cataracts ENDOCRINE: Positive Endocrine Disorders and Hypothyroidism; Negative Diabetes Mellitus Type 1 or Diabetes Mellitus Type 2 HEMATOLOGIC: Positive Anemia; Negative Sickle Cell Disease PSYCHO/SOCIAL: Positive Recreational Drug Use, Depression and Anxiety OTHER HISTORY: Positive Falls, Blood Transfusions and Chicken Pox; Negative Autoimmune Disease, Down Syndrome, Developmental Delay, Blood Transfusion Reaction, Anesthesia Reactions, Organ Transplant, MRSA, VRSA, Vancomycin-Resistant Enterococci, Clostridium Difficile or Cancer Family History FAMILY HISTORY: Positive Family Cardiac Disorders and Family Cancer Surgical History SURGICAL: Positive Abdominal Surgery, Gastric Bypass Surgery, Lumpectomy and Section; Negative Cardiac Surgery, Endocrine Surgery, Thyroidectomy, Ear Surgery, Tympanostomy Tube, Eye Surgery, Nose Surgery, Oral Surgery, Tonsillectomy, Adenoidectomy, Cochlear Implant, Corneal Transplant, Throat Surgery, Tracheostomy, Nephrectomy, Joint Replacement, Neurologic Surgery, Brain Shunt or Organ Transplant Social History SMOKING STATUS: Current every day smoker SUBSTANCE USE: methamphetamine Exam Vital Signs Temp Pulse Resp BP Pulse Ox O2 Del Method O2 Flow Rate 98.1 F 95 20 101/69 98 Nasal Cannula 2 12/14/24 19:08 12/14/24 19:30 12/14/24 19:19 12/14/24 19:30 12/14/24 19:30 12/14/24 19:08 12/14/24 19:19 Narrative Exam General: No acute distress; A&Ox3; obese habitus; nasal cannula Skin: Lower extremities bilaterally red, skin intact to knees HENT: NCAT, EOMI/PERRL, not icteric. External ears normal. No rhinorrhea. Moist mucous membranes Cardiovascular: Regular rate and rhythm, no murmur, +S1/S2. Respiratory: Mild wheezes bilaterally GI: Soft, mild R-sided abdominal tenderness. Abdominal hernia. No guarding or rebound tenderness. : No suprapubic tenderness. No flank tenderness bilaterally. Extremities: Bilateral LE edema to knees; Bilateral LE tenderness ankle to knee & non-proportional tenderness to touch of Right upper thigh; no cyanosis, no clubbing. Extremity pulses present; no mottling Neuro: Grossly nonfocal. Moving all 4 extremities. CN not formally tested but appear grossly intact. Psychiatric: Cooperative, appropriate affect. Results Labs 12/14/24 04:40 12/14/24 04:40 Labs: Short CBC 12/13/24 12/14/24 Range/Units 20:15 04:40 WBC 9.5 8.5 (3.6-11.0) Thou/mm3 Hgb 10.2 L 9.7 L (12.0-16.0) g/dL Hct 32.6 L 32.1 L (36.0-46.0) % Plt Count 239 193 D (140-440) Thou/mm3 BMP 12/13/24 12/14/24 12/14/24 20:15 02:28 04:40 Sodium 128 L 134 L 135 L Potassium 3.1 L 2.9 L 4.6 D Chloride 94 L 101 102 Carbon Dioxide 19.7 L 21.7 22.7 BUN 20 19 19 Creatinine 1.2 0.9 1.0 Glucose 109 H 85 103 Calcium 7.7 L 7.0 L 7.5 L Cardiac Enzymes 12/13/24 12/14/24 Range/Units 20:15 02:28 Troponin I < 0.002 < 0.002 (0.0-0.045) ng/mL Liver Function 12/13/24 12/14/24 Range/Units 20:15 04:40 Total Bilirubin 1.6 H 1.7 H (0.3-1.2) mg/dL AST 110 H 108 H (0-34) U/L ALT 72 H 71 H (10-49) U/L Alkaline Phosphatase 239 H 231 H (46-116) U/L Albumin 2.3 L 2.0 L (3.4-4.8) gm/dL Urine 12/14/24 Range/Units 05:45 Urine Color Yellow (Lt Yel-Yel) Urine Clarity Turbid A (Clear/Hazy) Urine pH 6.0 (5.0-7.0) Ur Specific [place] 1.011 (1.001-1.035) Urine Protein Trace (Neg - Trace) Urine Glucose (UA) Negative (Negative) ABG Interpretation ABG results: 12/14/24 13:22 VBG pH 7.42 VBG pCO2 38 VBG pO2 120 H VBG Base Excess 0 Quality Measures Quality Measures sepsis Current suspected stage: severe sepsis Possible source: skin/soft tissue Blood cultures ordered: yes Antibiotic ordered: Yes Medications Home Medications and Allergies Home Medications ?Medication ?Instructions ?Recorded ?Confirmed ?Type ergocalciferol (vitamin D2) 1,250 1,250 mcg PO QWEEK 0 05/18/24 12/14/24 History mcg (50,000 unit) capsule meloxicam 7.5 mg tablet 15 mg PO QDAY 05/18/2412/14 History Held on 12/14/24. Instructions: Doctor's Order pantoprazole 40 mg tablet,delayed 40 mg PO DAILY 06/0112/14/24 History release Allergies Allergy/AdvReac Type Severity Reaction Status Date / Time Penicillins Allergy Severe Anaphylaxis Verified 12/13/24 19:53 lorazepam (From Ativan) Allergy Verified 12/13/24 19:53 erythromycin base AdvReac Intermediate Abdominal Verified 12/13/24 19:53 Pain Visit Medications Acetaminophen (Acetaminophen 325 Mg Tablet) 650 mg PO Q6HR PRN PRN Reason: Fever >101.5 Stop: 01/13/25 04:35 Acetaminophen (Acetaminophen 325 Mg Tablet) 650 mg PO Q6HR PRN PRN Reason: PAIN SCALE 1-3 (mild Stop: 01/13/25 04:35 Albuterol/Ipratropium (Albuterol/Ipratropium (Duoneb) Rt Charisse 3 Ml Nebu) 3 ml INH Q4HRRT PRN PRN Reason: wheezing Stop: 01/13/25 06:59 Apixaban (Apixaban 2.5 Mg Tablet) 5 mg PO BID DA Stop: 01/04/25 08:59 Last Admin: 12/14/24 08:01 Dose: 5 mg Ergocalciferol (Capsule 1.25 Mg) 0 ea PO QWEEK DA Stop: 01/13/25 10:59 Last Admin: 12/14/24 11:21 Dose: 1.25 capsule Folic Acid (Folic Acid 1 Mg Tablet) 1 mg PO BID DA Stop: 12/19/24 20:59 Vancomycin HCl/Dextrose (Vancomycin/D5w 1500 Mg Ivpb) 300 mls @ 120 mls/hr IV Q12H DA; Protocol Stop: 12/21/24 21:59 Albumin Human (Albuminar-5 Ivpb) 12.5 gm in 250 mls @ 100 mls/hr IV QDAY DA Stop: 01/13/25 09:44 Last Infusion: 12/14/24 12:59 Dose: Infused Norepinephrine/Dextrose (Levophed In D5w 8mg/250ml) 8 mg in 250 mls @ 13.82 mls/hr IV .Q18H6M PRN; Protocol PRN Reason: PER PROTOCOL Stop: 01/13/25 12:26 Last Titration: 12/14/24 19:35 Dose: 0.03 mcg/kg/min, 8.292 mls/hr Clindamycin/Sodium Chloride (Cleocin/Ns Ivpb) 600 mg in 50 mls @ 100 mls/hr IV Q8HR DA Stop: 12/21/24 14:16 Last Infusion: 12/14/24 16:44 Dose: Infused Meropenem 1,000 mg/ Sodium (Chloride) 50 mls @ 100 mls/hr IV Q8HR DA Stop: 12/21/24 14:29 Last Infusion: 12/14/24 17:56 Dose: Infused Levothyroxine Sodium (Levothyroxine Sodium 25 Mcg Tablet) 50 mcg PO ACBR DA Stop: 01/13/25 07:29 Last Admin: 12/14/24 07:27 Dose: 50 mcg Lidocaine (Lidocaine 5% 1 Patch) 1 patch TOP QDAY PRN PRN Reason: LOCALIZED PAIN Lorazepam (Lorazepam 0.5 Mg Tablet) 0.5 mg PO Q4HR PRN PRN Reason: CIWA Score 2-6 Stop: 12/19/24 11:56 Lorazepam (Lorazepam 0.5 Mg Tablet) 1 mg PO Q4HR PRN PRN Reason: CIWA SCORE 7-11 Stop: 12/19/24 11:56 Lorazepam (Lorazepam 0.5 Mg Tablet) 2 mg PO Q4HR PRN PRN Reason: CIWA SCORE 12-15 Stop: 12/19/24 11:56 Ondansetron HCl (Ondansetron Inj 2 Mg/Ml Inj 2 Ml) 4 mg IVP Q6H PRN; Protocol PRN Reason: NAUSEA OR VOMITING Stop: 01/13/25 04:35 Pantoprazole Sodium (Pantoprazole 40 Mg Tablet) 40 mg PO DAILY [facility] Stop: 01/13/25 08:59 Last Admin: 12/14/24 08:02 Dose: 40 mg Pharmacy Consult (Vancomycin Pharmacy To Dose 1 Each Each) 1 each IV QDAY PRN PRN Reason: PROTOCOL Stop: 01/13/25 08:59 Pregabalin (Pregabalin 25 Mg Capsule) 100 mg PO TID [facility] Stop: 01/13/25 08:29 Last Admin: 12/14/24 15:59 Dose: 100 mg Thiamine HCl (Thiamine 100 Mg Tablet) 100 mg PO BID [facility] Stop: 12/19/24 20:59 Discontinued Medications Acetaminophen (Acetaminophen 325 Mg Tablet) 650 mg PO Q6H PRN PRN Reason: Fever >101.5 Stop: 01/13/25 04:35 Acetaminophen (Acetaminophen 325 Mg Tablet) 650 mg PO Q6H PRN PRN Reason: PAIN SCALE 1-3 (mild Stop: 01/13/25 04:35 Duloxetine HCl (Duloxetine Hcl 30 Mg Capsule) 60 mg PO DAILY [facility] Stop: 01/13/25 08:59 Last Admin: 12/14/24 09:40 Dose: 60 mg Ceftriaxone Sodium/Dextrose (Rocephin/D5w 1gm Iv Premix) 1 gm in 50 mls @ 100 mls/hr IV X1 ONE Stop: 12/13/24 21:23 Last Infusion: 12/13/24 21:56 Dose: Infused Sodium Chloride (Ns) 1,000 mls @ 999 mls/hr IV .Q1H1M ONE Stop: 12/13/24 21:55 Last Infusion: 12/13/24 22:34 Dose: Infused Vancomycin/Sodium Chloride (Vancomycin/Ns 1 Gm Ivpb) 200 mls @ 120 mls/hr IV .Q1H40M DA Stop: 12/14/24 00:34 Last Infusion: 12/14/24 01:24 Dose: Infused Sodium Chloride (Ns) 1,000 mls @ 999 mls/hr IV .Q1H1M ONE Stop: 12/13/24 22:01 Last Infusion: 12/13/24 22:34 Dose: Infused Sodium Chloride (Ns) 1,000 mls @ 999 mls/hr IV .Q1H1M ONE Stop: 12/13/24 23:04 Last Infusion: 12/13/24 23:42 Dose: Infused Potassium Chloride (Kcl Ivpb) 10 meq in 100 mls @ 100 mls/hr IV X1 ONE Stop: 12/14/24 01:51 Last Infusion: 12/14/24 03:59 Dose: Infused Lactated Ringer's (Lactated Ringers) 1,000 mls @ 999 mls/hr IV .Q1H1M ONE Stop: 12/14/24 03:12 Last Infusion: 12/14/24 03:59 Dose: Infused Ceftriaxone Sodium/Dextrose (Rocephin/D5w 1gm Iv Premix) 1 gm in 50 mls @ 100 mls/hr IV HS DA Stop: 12/21/24 20:59 Sodium Chloride (Ns) 500 mls @ 250 mls/hr IV .Q2H ONE Stop: 12/14/24 09:05 Last Infusion: 12/14/24 09:46 Dose: Infused Albumin Human (Albuminar-5 Ivpb) 12.5 gm in 250 mls @ 100 mls/hr IV QDAY DA Stop: 12/18/24 07:45 Last Admin: 12/14/24 09:46 Dose: Not Given Vancomycin HCl/Dextrose (Vancomycin/D5w 1500 Mg Ivpb) 300 mls @ 120 mls/hr IV X1 ONE Stop: 12/14/24 12:29 Last Infusion: 12/14/24 13:56 Dose: Infused Magnesium Sulfate (Magnesium Sulfate Ivpb) 4 gm in 50 mls @ 12.5 mls/hr IV X1 ONE Stop: 12/14/24 12:51 Last Infusion: 12/14/24 13:31 Dose: Infused Midodrine (Midodrine 5 Mg Tablet) 10 mg PO X1 ONE Stop: 12/14/24 05:04 Last Admin: 12/14/24 05:40 Dose: 10 mg Midodrine (Midodrine 5 Mg Tablet) 10 mg PO X1 ONE Stop: 12/14/24 07:23 Last Admin: 12/14/24 07:28 Dose: 10 mg Midodrine (Midodrine 5 Mg Tablet) 10 mg PO TID DA Stop: 01/13/25 13:59 Last Admin: 12/14/24 15:34 Dose: Not Given (Ergocalciferol ( Vitamin D2) 1,250 Mcg (50,000 Unit) Capsule. 1 ea PO Fr DA Stop: 01/13/25 08:59 Last Admin: 12/14/24 10:26 Dose: Not Given Potassium Chloride (Potassium Chloride 10% 20 Meq/15 Ml Udc) 80 meq PO X1 ONE Stop: 12/14/24 02:21 Last Admin: 12/14/24 02:44 Dose: 80 meq Pregabalin (Pregabalin 50 Mg Capsule) 100 mg PO TID DA Stop: 01/13/25 05:59 Last Admin: 12/14/24 07:29 Dose: Not Given Sodium Chloride (Sodium Chloride Rt 10% 15 Ml Nebu) 5 ml INH X1 ONE Stop: 12/14/24 12:33 Assessment & Plan Plan The is a 64 years old female with PMH of alcoholic liver cirrhosis, 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 Patient admitted and held in ED initially, upgraded to ICU for shock needing pressors. Neurology No acute problems Cardiovascular #Septic shock DDx: Bilateral Lower Extremity cellulities Versus possible pneumonia with chest x-ray imaging showing early bibasilar pneumonia. Cellulitis does not appear to be adequate explanation for the shock, UTI Dx: -Patient has severe tenderness on lower extremities bilaterally with disproportionate tenderness on right upper thigh, surgery Dr. Zamudio was notified and did not have high concern for necrotizing fasciitis. - Wound care was consulted were asked to demarcate with daily reassessments for spread. ? Blood pressure 91/38 after nitroglycerin x 2 was given ? Blood pressure increased to 140/80 3:06 liters of fluid, MAP declined to 58. ? Continued fluids with 4.5 L total, midodrine x 2 given. ? Lactate initially at 8.[address] to 3.4 after 3 L of fluid given ? Chest x-ray shows early pneumonia left base ?On bedside ultrasound IVC not variable with respirations, was minimally dilated; RV and LV function appeared intact, obvious abnormalities with heart function.. ? Lower extremity CT ordered ? LRINEC score of 3, low probability of nec fasciitis, does not rule out. Rx: ? Now on clindamycin and continuing vancomycin, started meropenem ? Serial lactic acids ? Follow-up cultures blood cultures and urine culture - Received 4.5 L fluid - Wound care consulted, will demarcate cellulitis for growht RRx: -Ceftriaxone Dc'd #History of DVT on Eliquis for about 1 year Dx: - Had an unprovoked DVT ~ 1 year ago, has been on eliquis ever since ? Venous Doppler showed no DVT Rx: - Continuig Eliquis 5 mg po bid #Elevated QTc on EKG Dx: - EKG showed qtc of [address]-T changes. Rx: ? Magnesium repleted ? Repeat EKG showed improvement in QTc. ?Keep mag above 2 and potassium above 4 ?Avoid QTc prolonging agents Respiratory #Acute hypoxic respiratory failure due to community-acquired pneumonia DDx: Pneumonia, AGUSTIN due to obesity, history of COPD Dx: - history of COPD not on home oxygen, not on home oxygen ? VBG was favorable ? Chest x-ray shows early pneumonia left base Rx: - ABX as above ?Follow-up with sputum cultures ? On 4 L nasal cannula ? CPAP at night #COPD Dx: -Not on home o2 Rx: -Continuing supplemental o2 with goal o2 88-92% -Will need LAMA on outpatient -DuoNebs every 4 hours as needed GI and F/E/N #Hepatitis due to alcohol use disorder Dx: ? CT space AP showed hepatosplenomegaly, severe diffuse fatty infiltration throughout the liver ? T. bili of 1.7, AST 108, ALT 71 alk phos 231, albumin 2.0 Rx: ? Trend liver function tests ?Avoid hepatotoxic agents #Alcohol withdrawal Dx: ? Patient has a history of alcohol use disorder. Rx: ? [facility] protocol ?Thiamine and folic acid Renal #Hypokalemia, resolved Dx: -presented with potassium of 3.1, currently 4.6 on 12-14-2024. Rx: -continue to trend potassium and e-lytes #Lactic acidosis, no anion gap, improving Dx: ? Corrected anion gap at 15.3 with sodium, chloride, albumin taken into account ? Lactic acid initially at 8.5, after 3 L fluid decreased to 3.4. Rx; -Treating underlying infection (shock) Heme # Macrocytic anemia due to chronic alcohol use Dx: ?Hemoglobin 9.7 ? No signs or symptoms of bleeding Rx: ? Will continue to monitor for signs of bleeding, trend hemoglobin levels with daily labs #Coagulopathy Dx: ? PT 12.9 in setting of cirrhosis Rx: ? Will continue to monitor for bleeding Endo #Hypertriglyceridemia Dx: Triglycerides 374, cholesterol 130, LDL 50, HDL less than 5. Rx: -Outpatient follow up to get under control #Hypothyroidism Dx: ? TSH 6.59, free T40.84 Rx: ? Levothyroxine 50 mcg p.o. ACBR ID #Cellulitis #Community-acquired pneumonia #? UTI/Asymptomatic Pyuria Dx: ? No white count, no fever Rx: ? Follow-up blood cultures and urine culture ? Continue antibiotic as above Disposition: ICU for septic shock DVT prophylaxis: Eliquis 5 mg twice daily GI prophylaxis: protonix 40 mg po daily Diet: regular diet Trejo: yes Lines: Peripherals Drips: Levophed Vent: none CODE STATUS: DNR Patient plan of care was discussed with the attending physician, Dr. Crum & senior resident Dr. Luis Enrique Houser MD PGY-1
[2024-12-14] MEDS: FOLIC ACID 1 MG TABLET PO (21:20)
[2024-12-14] MEDS: THIAMINE 100 MG TABLET PO (21:20)
[2024-12-14 21:25] LABS: Lactate (Lactic Acid) 3.9 mMol/L (0.4-2.0)
--- NOTE | 2024-12-14 23:20 | XR_ITS ---
Examination: Abdomen sonogram, Limited Date and time of exam: December 14, 2024, 0210 hours INDICATIONS: Elevated liver function test on laboratory examination today Technique: Real-time khan scale transabdominal sonographic images of the upper abdomen obtained. Findings: Absent gallbladder Common bile duct 0.99 cm no stones Pancreas obscured by bowel gas Liver 16.3 cm no liver lesions Normal hepatopetal portal venous flow Patent IVC IMPRESSION: Limited study No common bile duct stones noted
[2024-12-14] MEDS: SODIUM CHLORIDE RT 10% 15 ML NEBU 5 ML INH (23:44)
[2024-12-15] VITALS (116 sets, daily range): BP systolic 62–120; BP diastolic 50–88; PULSE 87–116; RESP 13–93; TEMP 35.8–37.2; O2SAT 88–99; BMI 48.5
[2024-12-15 00:21] LABS: Reflex Lactate? Y
[2024-12-15 01:05] LABS: Lactic Acid, 3 HR 2.5 mMol/L (0.4-2.0)
[2024-12-15 05:23] LABS: Basophils # (Auto) 0.1 Thou/mm3 (0.0-0.2); Basophils % (Auto) 1 % (0-2.5); Eosinophils # (Auto) 0.1 Thou/mm3 (0.0-0.5); Eosinophils % (Auto) 2 % (0-10); Hematocrit 33.2 % (36.0-46.0); Hemoglobin 9.9 g/dL (12.0-16.0); Immature Granulocytes Auto 0.12 Thou/mm3 (0.00-0.00); Lymphocytes # (Auto) 1.4 Thou/mm3 (1.0-4.8); Lymphocytes % (Auto) 20 % (10-50); Mean Corpuscular HGB Conc 29.8 g/dl (31.0-37.0); Mean Corpuscular Hemoglobin 31.2 pg (25.0-35.0); Mean Corpuscular Volume 105 fL (80-100); Monocytes # (Auto) 1.1 Thou/mm3 (0.0-0.8); Monocytes % (Auto) 16 % (0-12); Neutrophils # (Auto) 4.1 Thou/mm3 (1.8-7.7); Neutrophils % (Auto) 59 % (37-80); Nucleated Red Blood Cell # 0.00 Thou/mm3 (0.00-0.00); Nucleated Red Blood Cell % 0 /100 WBC (0); Platelet Count 199 Thou/mm3 (140-440); RDW Standard Deviation 78.3 fL (36.4-46.3); Red Blood Count 3.17 Miln/mm3 (4.00-5.20); White Blood Count 7.0 Thou/mm3 (3.6-11.0)
[2024-12-15 05:39] LABS: INR 1.3 (0.9-1.3); Prothrombin Time 13.5 Seconds (9.0-12.2)
[2024-12-15] MEDS: CLINDAMYCIN/NS 600 MG IVPB 600 MG/50 ML BAG 100 MG IV (05:39)
[2024-12-15] MEDS: PREGABALIN 25 MG CAPSULE 100 MG PO ×3 (05:39→21:01)
[2024-12-15] MEDS: LEVOTHYROXINE SODIUM 25 MCG TABLET 50 MCG PO (05:40)
[2024-12-15] MEDS: MEROPENEM INJ 1,000 MG in SODIUM CHLORIDE 0.9% (Popper) 50 ML 100 MG IV (05:40)
[2024-12-15 05:41] LABS: Glucose Estimated Average 94 mg/dL (80-131); Hemoglobin A1C 4.9 % Hgb (4.8-6.0)
[2024-12-15 05:48] LABS: Alanine Aminotransferase 66 U/L (10-49); Albumin, Serum 2.4 gm/dL (3.4-4.8); Albumin/Globulin Ratio 0.8 (1.2-2.2); Alkaline Phosphatase 234 U/L (46-116); Anion Gap 5 (7-16); Aspartate Amino Transferase 96 U/L (0-34); BUN/Creatinine Ratio 18 Ratio (12-20); Bilirubin,Total 2.2 mg/dL (0.3-1.2); Blood Urea Nitrogen 14 mg/dL (9-23); Calcium 8.1 mg/dL (8.3-10.6); Calcium (Corrected) 9.4 mg/dL (8.5-10.1); Carbon Dioxide 27.9 mMol/L (20.0-31.0); Chloride 104 mMol/L (98-107); Creatinine (Component) 0.8 mg/dL (0.6-1.3); Estimated Creatinine Clearance 105.7 mL/min (>60); Globulin 2.9 gm/dL (2.3-3.5); Glucose 127 mg/dL (74-106); Magnesium 2.2 mg/dL (1.6-2.6); Osmolality,Calculated 276 (275-295); Phosphorous 2.2 mg/dL (2.4-5.1); Potassium 3.9 mMol/L (3.4-5.1); Sodium 137 mMol/L (136-145); Total Protein 5.3 gm/dL (5.7-8.2); eGFR > 60 See Note
[2024-12-15] MEDS: Norepinephrine/D5W 8mg/250ml 8 MG/250 ML BAG 19.349 MG IV (07:13)
[2024-12-15] MEDS: APIXABAN 2.5 MG TABLET 5 MG PO ×2 (08:21→21:02)
[2024-12-15] MEDS: NICOTINE PATCH 14 MG/24 HR PATCH.TD24 TOP (08:21)
[2024-12-15] MEDS: FOLIC ACID 1 MG TABLET PO ×2 (08:21→21:02)
[2024-12-15] MEDS: THIAMINE 100 MG TABLET PO ×2 (08:21→21:02)
[2024-12-15] MEDS: ALBUMIN HUMAN 5% IVPB 12.5 GM/250 ML BTL IV (08:21)
[2024-12-15] MEDS: PANTOPRAZOLE 40 MG TABLET PO (08:21)
[2024-12-15 10:01] LABS: Vancomycin,Trough 28.8 mcg/mL (5.0-10.0)
[2024-12-15] MEDS: CEFEPIME INJ 2 GM in SODIUM CHLORIDE 0.9% (Popper) 50 ML IV ×3 (10:20→21:03)
[2024-12-15] MEDS: FUROSEMIDE INJ 10 MG/ML 4ML VIAL 80 MG IVP (10:21)
[2024-12-15] MEDS: SPIRONOLACTONE 25 MG TABLET PO ×2 (10:22→21:02)
--- NOTE | 2024-12-15 12:06 | PD.RESPRO ---
Documentation for date of: 12/15/24 Subjective Subjective Interval history: 64 years old female with PMH of alcoholic liver cirrhosis, 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 She complains of she has been experiencing worsening swelling in the bilateral legs for the last 2 weeks and experiencing pain since last week. She also complains she had on and off shortness of breath but endorses worsening shortness of breath associated with chest pain squeezing in nature 10 out of 10 on a pain scale, nonradiating since 1 day which prompted her to the ED visit. When paramedics came she complained of chest pain for which they gave 2 doses of nitroglycerin before they brought to the hospital. At her baseline she does not use the oxygen and usually does not walk. She denies any palpitations, dizziness, urinary frequency, urinary urgency, burning micturition, nausea, vomiting, melena, recent trauma. ED Course: vitals initial blood pressure 91/40, pulse 112, respiratory 16, temperature 98.3, saturating 97% on 2 L of nasal cannula. Pertinent lab findings hemoglobin 10.2, hematocrit 32.6, MCV 101, RDW 75.2, sodium 128, chloride 94, potassium 3.1, bicarbonate 19.7, initial lactic acid 8.5, total bilirubin 1.6, AST 110, ALT 72, ALP 239. Pertinent imaging findings CT abdomen showing fatty liver, steatohepatitis, colonic diverticulosis without diverticulitis and multiple ventral wall fat-containing hernias. Treatment given in ED 3 L of NS and started on ceftriaxone and vancomycin. Patient admitted and held in ED initially, upgraded to ICU for shock needing pressors. Interval History: 12/14/2024: Today patient was assessed in the emergency department. Stated that she feels feeling drowsy, said she has had a similar presentation with cellulitis in the past, but not this bad and has never needed to be in ICU. Today patient denied having any fevers chills sick contacts recently, chest pain. Patient endorsed shortness of breath on and off for last couple weeks, chronic cough for many years regarding COPD and back pain. Patient was found to have soft blood pressure with MAP hovering around 65. The decision was made to initiate Levophed. Patient had gotten to times midodrine 10 mg earlier in the day. Patient was consented for central line placement and right IJ central line was placed. 12/15/2024: Patient was seen and examined at bedside this morning. No acute overnight events. Patient is not spiking WBCs and hemoglobin is stable, lower extremity CT done yesterday did not show any gas in the tissue only showed severe diffuse edema and subcutaneous fatty tissues of bilateral lower extremities. Neuro ultrasound did not show any ascites. Patient's cultures still pending sputum and MRSA, blood cultures negative in 24 hours. Patient's lower extremity edema seems to be secondary to fluid as patient seems to be having anasarca. Gave patient Lasix 80 daily along with spironolactone 25 mg twice daily and in the setting of low BP will keep Levophed on while patient is diuresed. Vancomycin, clindamycin, and meropenem were discontinued as less suspicion for MRSA or necrotizing fasciitis at this time and started cefepime. Also start midodrine 5 mg 3 times daily and will likely discontinue Levophed if BP stable. Exam Vital Signs Temp Pulse Resp BP Pulse Ox O2 Del Method O2 Flow Rate 97.5 F 102 H 20 96/75 97 Nasal Cannula 2 12/15/24 12:00 12/15/24 12:00 12/15/24 12:00 12/15/24 12:00 12/15/24 12:00 12/15/24 11:00 12/15/24 12:00 FiO2 30 12/15/24 01:41 Narrative Exam General: A/O x3, no acute distress, obese Eyes: PERRL, EOMI. Anicteric, vision grossly intact. Ears: No ear pain, no ear discharge, Hearing grossly intact. Nose: No nasal discharge. Mouth/Throat: Moist mucous membranes, no redness, no lesions. Neck: Neck supple, non-tender, no cervical lymphadenopathy. Lungs: Clear KATIE to auscultation and percussion, No accessory muscle use. Cardio: Normal S1/S2, regular rhythm, no murmurs, no JVD Abdomen: Soft, non-tender, no palpable masses, peristalsis present, no guarding or rebound. Extremities: Symmetrical, no significant deformities, 2+ peripheral edema upto lower abdomen , non-tender, peripheral pulses difficult to palpate due to swelling. Skin: No rashes, no lesions, warm to touch. Neuro: No focal neurological deficits. motor and sensory intact Psych: Cooperative, appropriate mood and effect. Objective Labs 12/21/24 05:11 12/21/24 05:11 Labs: Laboratory Results - last 24 hr 12/14/24 12/14/24 12/14/24 13:22 17:07 21:09 WBC RBC Hgb Hct MCV MCH MCHC RDW Std Deviation Plt Count Neut % (Auto) Lymph % (Auto) Hitchcock % (Auto) Eos % (Auto) Baso % (Auto) Neut # (Auto) Lymph # (Auto) Hitchcock # (Auto) Eos # (Auto) Baso # (Auto) Immature Gran # (Auto) Absolute Nucleated RBC Immature Gran % Nucleated RBC % PT INR VBG pH 7.42 VBG pCO2 38 VBG pO2 120 H VBG O2 Sat (Ruben) 100 H VBG Base Excess 0 Sodium Potassium Chloride Carbon Dioxide Anion Gap BUN Creatinine Estim Creat Clear Calc eGFR BUN/Creatinine Ratio Glucose Estimated Ave Glu mg/dL Hemoglobin A1c Calculated Osmolality Lactic Acid 4.0 H 3.4 H 3.9 H Calcium Corrected Calcium Phosphorus Magnesium 2.2 Total Bilirubin AST ALT Alkaline Phosphatase Ammonia 22 C-Reactive Prot, Quant 6.3 H Total Protein Albumin Globulin Albumin/Globulin Ratio Vancomycin Trough 12/15/24 12/15/24 12/15/24 00:48 05:02 09:27 WBC 7.0 RBC 3.17 L Hgb 9.9 L Hct 33.2 L MCV 105 H MCH 31.2 MCHC 29.8 L RDW Std Deviation 78.3 H Plt Count 199 Neut % (Auto) 59 Lymph % (Auto) 20 Hitchcock % (Auto) 16 H Eos % (Auto) 2 Baso % (Auto) 1 Neut # (Auto) 4.1 Lymph # (Auto) 1.4 Hitchcock # (Auto) 1.1 H Eos # (Auto) 0.1 Baso # (Auto) 0.1 Immature Gran # (Auto) 0.12 H Absolute Nucleated RBC 0.00 Immature Gran % 2 H Nucleated RBC % 0 PT 13.5 H INR 1.3 VBG pH VBG pCO2 VBG pO2 VBG O2 Sat (Ruben) VBG Base Excess Sodium 137 Potassium 3.9 D Chloride 104 Carbon Dioxide 27.9 Anion Gap 5 L BUN 14 Creatinine 0.8 Estim Creat Clear Calc 105.7 eGFR > 60 BUN/Creatinine Ratio [address] Glu mg/dL 94 Hemoglobin A1c 4.9 Calculated Osmolality 276 Lactic Acid 2.5 H Calcium 8.1 L Corrected Calcium 9.4 Phosphorus 2.2 L Magnesium 2.2 Total Bilirubin 2.2 H D AST 96 H ALT 66 H Alkaline Phosphatase 234 H Ammonia C-Reactive Prot, Quant Total Protein 5.3 L Albumin 2.4 L Globulin 2.9 Albumin/Globulin Ratio 0.8 L Vancomycin Trough 28.8 H* ABG Interpretation ABG results: 12/14/24 13:22 VBG pH 7.42 VBG pCO2 38 VBG pO2 120 H VBG Base Excess 0 Quality Measures Quality Measures VTE prophylaxis and sepsis Current suspected stage: sepsis Possible source: skin/soft tissue Blood cultures ordered: yes Antibiotic ordered: Yes Assessment & Plan Assessment Current Active Medications: Generic Name Dose Route Start Last Admin Trade Name Freq PRN Reason Stop Dose Admin Acetaminophen 650 mg 12/14/24 14:15 Acetaminophen 325 Mg Tablet PO 01/13/25 04:35 Q6HR PRN Fever >101.5 Acetaminophen 650 mg 12/14/24 14:15 Acetaminophen 325 Mg Tablet PO 01/13/25 04:35 Q6HR PRN PAIN SCALE 1-3 (mild Albuterol/Ipratropium 3 ml 12/14/24 04:06 Albuterol/Ipratropium (Duoneb) Rt Charisse 3 Ml Nebu INH 01/13/25 06:59 Q4HRRT PRN wheezing Apixaban 5 mg 12/14/24 09:00 12/15/24 08:21 Apixaban 2.5 Mg Tablet PO 01/04/25 08:59 5 mg BID DA Administration Ergocalciferol 0 ea 12/14/24 11:00 12/14/24 11:21 Capsule 1.25 Mg PO 01/13/25 10:59 1.25 capsule QWEEK DA Administration Folic Acid 1 mg 12/14/24 21:00 12/15/24 08:21 Folic Acid 1 Mg Tablet PO 12/19/24 20:59 1 mg BID DA Administration Furosemide 80 mg 12/15/24 09:45 12/15/24 10:21 Furosemide Inj 10 Mg/Ml 4ml Vial IVP 01/14/25 09:44 80 mg QDAY DA Administration Albumin Human 12.5 gm in 250 mls @ 100 mls/hr 12/14/24 09:45 12/15/24 08:21 Albuminar-5 Ivpb IV 01/13/25 09:44 100 mls/hr QDAY DA Administration Norepinephrine/Dextrose 8 mg in 250 mls @ 13.82 mls/hr 12/14/24 12:27 12/15/24 11:00 Levophed In D5w 8mg/250ml IV 01/13/25 12:26 0.03 mcg/kg/min .Q18H6M PRN 8.292 mls/hr PER PROTOCOL Titration Protocol 0.05 MCG/KG/MIN Cefepime HCl 2 gm/ Sodium 50 mls @ 100 mls/hr 12/15/24 09:27 12/15/24 10:20 Chloride IV 12/22/24 09:26 100 mls/hr Q8HR DA Administration Levothyroxine Sodium 50 mcg 12/14/24 07:30 12/15/24 05:40 Levothyroxine Sodium 25 Mcg Tablet PO 01/13/25 07:29 50 mcg ACBR DA Administration Lidocaine 1 patch 12/14/24 04:02 Lidocaine 5% 1 Patch TOP QDAY PRN LOCALIZED PAIN Lorazepam 0.5 mg 12/14/24 11:57 Lorazepam 0.5 Mg Tablet PO 12/19/24 11:56 Q4HR PRN CIWA Score 2-6 Lorazepam 1 mg 12/14/24 11:57 Lorazepam 0.5 Mg Tablet PO 12/19/24 11:56 Q4HR PRN CIWA SCORE 7-11 Lorazepam 2 mg 12/14/24 11:57 Lorazepam 0.5 Mg Tablet PO 12/19/24 11:56 Q4HR PRN CIWA SCORE 12-15 Midodrine 5 mg 12/15/24 14:00 Midodrine 5 Mg Tablet PO 01/14/25 13:59 TID DA Nicotine 14 mg 12/15/24 09:00 12/15/24 08:21 Nicotine Patch 14 Mg/24 Hr Patch.Td24 TOP 01/14/25 08:59 14 mg QDAY DA Administration Ondansetron HCl 4 mg 12/14/24 04:36 Ondansetron Inj 2 Mg/Ml Inj 2 Ml IVP 01/13/25 04:35 Q6H PRN NAUSEA OR VOMITING Protocol Pantoprazole Sodium 40 mg 12/14/24 09:00 12/15/24 08:21 Pantoprazole 40 Mg Tablet PO 01/13/25 08:59 40 mg DAILY DA Administration Pregabalin 100 mg 12/14/24 08:30 12/15/24 05:39 Pregabalin 25 Mg Capsule PO 01/13/25 08:29 100 mg TID DA Administration Spironolactone 25 mg 12/15/24 09:45 12/15/24 10:22 Spironolactone 25 Mg Tablet PO 01/14/25 09:44 25 mg BID DA Administration Thiamine HCl 100 mg 12/14/24 21:00 12/15/24 08:21 Thiamine 100 Mg Tablet PO 12/19/24 20:59 100 mg BID DA Administration Plan 64 years old female with PMH of alcoholic liver cirrhosis, 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 Patient admitted and held in ED initially, upgraded to ICU for shock needing pressors. Neurology No acute problems Cardiovascular #Anasarca Patient has lower lower extremity swelling all the way up to the lower abdomen Last echo was on 05/2024 showed an EF of 60 to 65%. With diastolic grade 1 dysfunction. Plan: Will diurese with spironolactone 25 mg twice daily and Lasix 80 mg daily Keep Levophed and started midodrine 5 mg 3 times daily due to soft BP and to achieve diuresis Repeat renal function panel and lactic acid in the afternoon #Septic shock DDx: Bilateral Lower Extremity cellulities Versus possible pneumonia with chest x-ray imaging showing early bibasilar pneumonia. Cellulitis does not appear to be adequate explanation for the shock, UTI Dx: -Patient has severe tenderness on lower extremities bilaterally with disproportionate tenderness on right upper thigh, surgery Dr. Zamudio was notified and did not have high concern for necrotizing fasciitis. - Wound care was consulted were asked to demarcate with daily reassessments for spread. ? Blood pressure 91/38 after nitroglycerin x 2 was given ? Blood pressure increased to 140/80 3:06 liters of fluid, MAP declined to 58. ? Continued fluids with 4.5 L total, midodrine x 2 given. ? Lactate initially at 8.[address] to 3.4 after 3 L of fluid given ? Chest x-ray shows early pneumonia left base ?On bedside ultrasound IVC not variable with respirations, was minimally dilated; RV and LV function appeared intact, obvious abnormalities with heart function.. ? Lower extremity CT showed no air in the tissue and only diffuse edema in the subcutaneous fatty tissues. ? LRINEC score of 3, low probability of nec fasciitis, does not rule out. Rx: ? DC clindamycin, vancomycin, meropenem (12/14-12/15) as low suspicion for nec fascitis - Started cefepime (12/15-) ? Serial lactic acids ? Follow-up cultures blood cultures and urine culture - Received 4.5 L fluid - Wound care consulted, will demarcate cellulitis for growht #History of DVT on Eliquis for about 1 year Dx: - Had an unprovoked DVT ~ 1 year ago, has been on eliquis ever since ? Venous Doppler showed no DVT Rx: - Continuig Eliquis 5 mg po bid #Elevated QTc on EKG Dx: - EKG showed qtc of [address]-T changes. Rx: ? Magnesium repleted ? Repeat EKG showed improvement in QTc. ?Keep mag above 2 and potassium above 4 ?Avoid QTc prolonging agents Respiratory #Acute hypoxic respiratory failure due to community-acquired pneumonia DDx: Pneumonia, AGUSTNI due to obesity, history of COPD Dx: - history of COPD not on home oxygen, not on home oxygen ? VBG was favorable ? Chest x-ray shows early pneumonia left base Rx: - ABX as above ?Follow-up with sputum cultures ? On 4 L nasal cannula ? CPAP at night #COPD Dx: -Not on home o2 Rx: -Continuing supplemental o2 with goal o2 88-92% -Will need LAMA on outpatient -DuoNebs every 4 hours as needed GI and F/E/N #Cirrhosis due to alcohol use disorder Dx: ? CT space AP showed hepatosplenomegaly, severe diffuse fatty infiltration throughout the liver ? T. bili of 1.7, AST 108, ALT 71 alk phos 231, albumin 2.0 Rx: - Started midodrine, spironolactone, and lasix ? Trend liver function tests ?Avoid hepatotoxic agents #Alcohol withdrawal Dx: ? Patient has a history of alcohol use disorder. Rx: ? CIWA protocol ?Thiamine and folic acid Renal #Hypokalemia, resolved Dx: -presented with potassium of 3.1, currently 3.9 12/15/2024 Rx: -continue to trend potassium and e-lytes #Lactic acidosis, no anion gap, improving Dx: ? Corrected anion gap at 15.3 with sodium, chloride, albumin taken into account ? Lactic acid initially at 8.5, after 3 L fluid decreased to 3.4. Rx; -Treating underlying infection -Trend LA Heme # Macrocytic anemia due to chronic alcohol use Dx: ?Hemoglobin 9.7--->9.9 (12/15) ? No signs or symptoms of bleeding Rx: ? Will continue to monitor for signs of bleeding, trend hemoglobin levels with daily labs #Coagulopathy Dx: ? PT 12.9 in setting of cirrhosis Rx: ? Will continue to monitor for bleeding Endo #Hypertriglyceridemia Dx: Triglycerides 374, cholesterol 130, LDL 50, HDL less than 5. Rx: -Outpatient follow up to get under control #Hypothyroidism Dx: ? TSH 6.59, free T40.84 Rx: ? Levothyroxine 50 mcg p.o. ACBR ID #Cellulitis #Community-acquired pneumonia #UTI/Asymptomatic Pyuria Dx: ? No white count, no fever Rx: ? Follow-up blood cultures and urine culture ? Continue Cefepime Disposition: ICU for septic shock DVT prophylaxis: Eliquis 5 mg twice daily GI prophylaxis: protonix 40 mg po daily Diet: regular diet Trejo: yes Lines: Peripherals, RIJ Drips: Levophed Vent: none CODE STATUS: DNR Case disclosed with Attending Dr. Mitchel Pitts PGY2 Disclaimer: Even though this this note was dictated by speech recognition and even though it was carefully revised there may still be minor errors in mobility scooter repairer due to voice recognition software. Attending Provider Attestation/Addendum Patient seen and examined with above resident, Ravi Pitts MD. I agree with the findings, assessment, and plan of care as document except for any differences below. Patient with suggestion of liver disease secondary to nonalcoholic steatohepatitis. Patient with low blood pressure likely due to low oncotic pressure despite appropriate fluid resuscitation. She appears fluid overloaded and will continue on albumin and initiate midodrine appropriately to liberate her from IV vasopressor support. Levophed may be useful to help with ongoing diuresis. Initiated Aldactone and Lasix for potential portal hypertension and liver dysfunction as etiology though no significant ascites amenable to paracentesis. Anasarca otherwise. Will assess potential for concomitant cardiac dysfunction as an alternative etiology first bilateral lower extremity swelling. I doubt that this is true cellulitis or clinically significant neck potassium fasciitis with imaging negative now. Urinary tract infection may be the only etiology of infection versus community-acquired pneumonia. Cefepime will be adequate coverage for both sources of infection. Patient is maintained on supplemental oxygen and CPAP therapy overnight. Monitor for alcohol withdrawal although she remains stable at this time. Total critical care time: I personally spent 45 minutes review of physiologic parameters, directing plan of care throughout the day, and extensive counseling of the patient at bedside. This is exclusive of time spent teaching on staff performing separate billable procedures. Patient remains at significant risk for further morbidity and mortality warranting close monitoring care only available in the ICU. Critical care services required for urinary tract infection, hypovolemic/septic shock, alcoholic cirrhosis, and acute hypoxic respiratory failure.
[2024-12-15] MEDS: MIDODRINE 5 MG TABLET PO ×2 (14:05→21:02)
[2024-12-15] MEDS: NAPH,KPH MBDB 1 PACKET (1.5 GM) PO (14:13)
[2024-12-15 14:44] LABS: Lactate (Lactic Acid) 4.4 mMol/L (0.4-2.0)
[2024-12-15 15:10] LABS: Albumin, Serum 2.4 gm/dL (3.4-4.8); Anion Gap 8 (7-16); BUN/Creatinine Ratio 13 Ratio (12-20); Blood Urea Nitrogen 12 mg/dL (9-23); Calcium 7.9 mg/dL (8.3-10.6); Calcium (Corrected) 9.2 mg/dL (8.5-10.1); Carbon Dioxide 26.1 mMol/L (20.0-31.0); Chloride 104 mMol/L (98-107); Creatinine (Component) 0.9 mg/dL (0.6-1.3); Estimated Creatinine Clearance 86.0 mL/min (>60); Glucose 194 mg/dL (74-106); Osmolality,Calculated 280 (275-295); Phosphorous 2.3 mg/dL (2.4-5.1); Potassium 3.8 mMol/L (3.4-5.1); Sodium 138 mMol/L (136-145); eGFR > 60 See Note
[2024-12-15 17:41] LABS: Reflex Lactate? Y
[2024-12-15 18:12] LABS: Lactic Acid, 3 HR 2.9 mMol/L (0.4-2.0)
[2024-12-15 18:42] LABS: Albumin, Serum 2.3 gm/dL (3.4-4.8); Anion Gap 8 (7-16); BUN/Creatinine Ratio 13 Ratio (12-20); Blood Urea Nitrogen 10 mg/dL (9-23); Calcium 7.9 mg/dL (8.3-10.6); Calcium (Corrected) 9.3 mg/dL (8.5-10.1); Carbon Dioxide 28.0 mMol/L (20.0-31.0); Chloride 105 mMol/L (98-107); Creatinine (Component) 0.8 mg/dL (0.6-1.3); Estimated Creatinine Clearance 96.8 mL/min (>60); Glucose 104 mg/dL (74-106); Osmolality,Calculated 280 (275-295); Phosphorous 2.7 mg/dL (2.4-5.1); Potassium 3.6 mMol/L (3.4-5.1); Sodium 141 mMol/L (136-145); eGFR > 60 See Note
[2024-12-16] VITALS (67 sets, daily range): BP systolic 74–130; BP diastolic 43–86; PULSE 87–108; RESP 15–29; TEMP 36.2–36.6; O2SAT 90–99; BMI 48.5
[2024-12-16] MEDS: PREGABALIN 25 MG CAPSULE 100 MG PO ×3 (05:23→22:04)
[2024-12-16] MEDS: CEFEPIME INJ 2 GM in SODIUM CHLORIDE 0.9% (Popper) 50 ML IV ×3 (05:23→22:03)
[2024-12-16] MEDS: LEVOTHYROXINE SODIUM 25 MCG TABLET 50 MCG PO (05:23)
[2024-12-16] MEDS: MIDODRINE 5 MG TABLET PO ×3 (05:23→22:04)
[2024-12-16 05:40] LABS: Basophils # (Auto) 0.1 Thou/mm3 (0.0-0.2); Basophils % (Auto) 2 % (0-2.5); Eosinophils # (Auto) 0.2 Thou/mm3 (0.0-0.5); Eosinophils % (Auto) 4 % (0-10); Hematocrit 29.3 % (36.0-46.0); Immature Granulocytes Auto 0.11 Thou/mm3 (0.00-0.00); Lymphocytes # (Auto) 1.2 Thou/mm3 (1.0-4.8); Lymphocytes % (Auto) 25 % (10-50); Mean Corpuscular HGB Conc 29.0 g/dl (31.0-37.0); Mean Corpuscular Hemoglobin 31.1 pg (25.0-35.0); Mean Corpuscular Volume 107 fL (80-100); Monocytes # (Auto) 0.7 Thou/mm3 (0.0-0.8); Monocytes % (Auto) 16 % (0-12); Neutrophils # (Auto) 2.4 Thou/mm3 (1.8-7.7); Neutrophils % (Auto) 52 % (37-80); Nucleated Red Blood Cell # 0.00 Thou/mm3 (0.00-0.00); Nucleated Red Blood Cell % 0 /100 WBC (0); Platelet Count 157 Thou/mm3 (140-440); RDW Standard Deviation 81.0 fL (36.4-46.3); Red Blood Count 2.73 Miln/mm3 (4.00-5.20); White Blood Count 4.6 Thou/mm3 (3.6-11.0)
[2024-12-16 05:41] LABS: Hemoglobin 8.5 g/dL (12.0-16.0)
[2024-12-16 06:15] LABS: Alanine Aminotransferase 53 U/L (10-49); Albumin, Serum 2.0 gm/dL (3.4-4.8); Albumin/Globulin Ratio 0.8 (1.2-2.2); Alkaline Phosphatase 184 U/L (46-116); Anion Gap 7 (7-16); Aspartate Amino Transferase 88 U/L (0-34); BUN/Creatinine Ratio 15 Ratio (12-20); Bilirubin,Total 1.2 mg/dL (0.3-1.2); Blood Urea Nitrogen 9 mg/dL (9-23); Calcium 7.8 mg/dL (8.3-10.6); Calcium (Corrected) 9.4 mg/dL (8.5-10.1); Carbon Dioxide 29.6 mMol/L (20.0-31.0); Chloride 106 mMol/L (98-107); Creatinine (Component) 0.6 mg/dL (0.6-1.3); Estimated Creatinine Clearance 129.1 mL/min (>60); Globulin 2.5 gm/dL (2.3-3.5); Glucose 81 mg/dL (74-106); Magnesium 1.6 mg/dL (1.6-2.6); Osmolality,Calculated 282 (275-295); Phosphorous 2.9 mg/dL (2.4-5.1); Potassium 3.9 mMol/L (3.4-5.1); Sodium 143 mMol/L (136-145); Total Protein 4.5 gm/dL (5.7-8.2); eGFR > 60 See Note
[2024-12-16 07:56] LABS: Lactate (Lactic Acid) 3.0 mMol/L (0.4-2.0)
[2024-12-16] MEDS: NICOTINE PATCH 14 MG/24 HR PATCH.TD24 TOP (08:22)
[2024-12-16] MEDS: ALBUMIN HUMAN 5% IVPB 12.5 GM/250 ML BTL IV (08:23)
[2024-12-16] MEDS: APIXABAN 2.5 MG TABLET 5 MG PO ×2 (08:24→20:35)
[2024-12-16] MEDS: FOLIC ACID 1 MG TABLET PO ×2 (08:24→20:34)
[2024-12-16] MEDS: SPIRONOLACTONE 25 MG TABLET PO ×2 (08:24→20:34)
[2024-12-16] MEDS: PANTOPRAZOLE 40 MG TABLET PO (08:24)
[2024-12-16] MEDS: THIAMINE 100 MG TABLET PO ×2 (08:24→20:35)
[2024-12-16] MEDS: FUROSEMIDE INJ 10 MG/ML 4ML VIAL 80 MG IVP (08:25)
[2024-12-16] MEDS: Magnesium Sulfate 4 GM Ivpb 4 GM/50 ML BAG IV (08:42)
--- NOTE | 2024-12-16 08:55 | PD.RESPRO ---
Documentation for date of: 12/16/24 Subjective Subjective Interval history: 64 years old female with PMH of alcoholic liver cirrhosis, 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 She complains of she has been experiencing worsening swelling in the bilateral legs for the last 2 weeks and experiencing pain since last week. She also complains she had on and off shortness of breath but endorses worsening shortness of breath associated with chest pain squeezing in nature 10 out of 10 on a pain scale, nonradiating since 1 day which prompted her to the ED visit. When paramedics came she complained of chest pain for which they gave 2 doses of nitroglycerin before they brought to the hospital. At her baseline she does not use the oxygen and usually does not walk. She denies any palpitations, dizziness, urinary frequency, urinary urgency, burning micturition, nausea, vomiting, melena, recent trauma. ED Course: vitals initial blood pressure 91/40, pulse 112, respiratory 16, temperature 98.3, saturating 97% on 2 L of nasal cannula. Pertinent lab findings hemoglobin 10.2, hematocrit 32.6, MCV 101, RDW 75.2, sodium 128, chloride 94, potassium 3.1, bicarbonate 19.7, initial lactic acid 8.5, total bilirubin 1.6, AST 110, ALT 72, ALP 239. Pertinent imaging findings CT abdomen showing fatty liver, steatohepatitis, colonic diverticulosis without diverticulitis and multiple ventral wall fat-containing hernias. Treatment given in ED 3 L of NS and started on ceftriaxone and vancomycin. Patient admitted and held in ED initially, upgraded to ICU for shock needing pressors. Interval History: 12/14/2024: Today patient was assessed in the emergency department. Stated that she feels feeling drowsy, said she has had a similar presentation with cellulitis in the past, but not this bad and has never needed to be in ICU. Today patient denied having any fevers chills sick contacts recently, chest pain. Patient endorsed shortness of breath on and off for last couple weeks, chronic cough for many years regarding COPD and back pain. Patient was found to have soft blood pressure with MAP hovering around 65. The decision was made to initiate Levophed. Patient had gotten to times midodrine 10 mg earlier in the day. Patient was consented for central line placement and right IJ central line was placed. 12/15/2024: Patient was seen and examined at bedside this morning. No acute overnight events. Patient is not spiking WBCs and hemoglobin is stable, lower extremity CT done yesterday did not show any gas in the tissue only showed severe diffuse edema and subcutaneous fatty tissues of bilateral lower extremities. Neuro ultrasound did not show any ascites. Patient's cultures still pending sputum and MRSA, blood cultures negative in 24 hours. Patient's lower extremity edema seems to be secondary to fluid as patient seems to be having anasarca. Gave patient Lasix 80 daily along with spironolactone 25 mg twice daily and in the setting of low BP will keep Levophed on while patient is diuresed. Vancomycin, clindamycin, and meropenem were discontinued as less suspicion for MRSA or necrotizing fasciitis at this time and started cefepime. Also start midodrine 5 mg 3 times daily and will likely discontinue Levophed if BP stable. 12/16/2024: Patient was seen and examined at bedside this morning. No acute overnight events. Patient this morning was -1 L and her lower extremity edema seems to be improving. Patient was taken off vasopressors around 3 AM in the morning. Kidney function continues to be stable for now with creatinine of 0.6 and BUN of 9, magnesium was on the lower end at 1.6 therefore repleted. Single central line. Patient appears to be diuresing well therefore we will continue with Lasix 80 mg daily, spironolactone 25 mg twice daily, and will also continue with albumin for forced diuresis at the same time. If the patient receives proper diuresis patient can be titrated off midodrine. Patient will also require ambulatory O2 test to determine if patient needs home oxygen. Lactic acid continue to uptrend, but no signs of hypoperfusion at this time. Lactic acid could be secondary to congestion. At this time patient stable enough to be downgraded to medical floors. Otherwise no other complaints. Exam Vital Signs Temp Pulse Resp BP Pulse Ox O2 Del Method O2 Flow Rate 97.9 F 107 H 16 120/69 97 Nasal Cannula 2 12/16/24 04:00 12/16/24 08:25 12/16/24 06:30 12/16/24 08:25 12/16/24 06:30 12/16/24 05:15 12/16/24 06:10 FiO2 30 12/16/24 03:42 Narrative Exam General: A/O x3, no acute distress, obese Eyes: PERRL, EOMI. Anicteric, vision grossly intact. Ears: No ear pain, no ear discharge, Hearing grossly intact. Nose: No nasal discharge. Mouth/Throat: Moist mucous membranes, no redness, no lesions. Neck: Neck supple, non-tender, no cervical lymphadenopathy. Lungs: Clear KATIE to auscultation and percussion, No accessory muscle use. Cardio: Normal S1/S2, regular rhythm, no murmurs, no JVD Abdomen: Soft, non-tender, no palpable masses, peristalsis present, no guarding or rebound. Extremities: Symmetrical, no significant deformities, 2+ peripheral edema upto lower abdomen, but lower extremities are softer and there is wrinkling on the feet, non-tender, peripheral pulses difficult to palpate due to swelling. Skin: No rashes, no lesions, warm to touch. Neuro: No focal neurological deficits. motor and sensory intact Psych: Cooperative, appropriate mood and effect. Objective Labs 12/17/24 05:00 12/17/24 05:00 Labs: Laboratory Results - last 24 hr 12/15/24 12/15/24 12/15/24 09:27 14:34 17:41 WBC RBC Hgb Hct MCV MCH MCHC RDW Std Deviation Plt Count Neut % (Auto) Lymph % (Auto) [place] % (Auto) Eos % (Auto) Baso % (Auto) Neut # (Auto) Lymph # (Auto) [place] # (Auto) Eos # (Auto) Baso # (Auto) Immature Gran # (Auto) Absolute Nucleated RBC Immature Gran % Nucleated RBC % Sodium 138 Potassium 3.8 Chloride 104 Carbon Dioxide 26.1 Anion Gap 8 BUN 12 Creatinine 0.9 Estim Creat Clear Calc 86.0 eGFR > 60 BUN/Creatinine Ratio 13 Glucose 194 H D Calculated Osmolality 280 Lactic Acid 4.4 H* 2.9 H Calcium 7.9 L Corrected Calcium 9.2 Phosphorus 2.3 L Magnesium Total Bilirubin AST ALT Alkaline Phosphatase Total Protein Albumin 2.4 L Globulin Albumin/Globulin Ratio Vancomycin Trough 28.8 H* 12/15/24 12/16/24 12/16/24 17:50 04:44 07:36 WBC 4.6 RBC 2.73 L Hgb 8.5 L Hct 29.3 L MCV 107 H MCH 31.1 MCHC 29.0 L RDW Std Deviation 81.0 H Plt Count 157 D Neut % (Auto) 52 Lymph % (Auto) 25 [place] % (Auto) 16 H Eos % (Auto) 4 Baso % (Auto) 2 Neut # (Auto) 2.4 Lymph # (Auto) 1.2 [place] # (Auto) 0.7 Eos # (Auto) 0.2 Baso # (Auto) 0.1 Immature Gran # (Auto) 0.11 H Absolute Nucleated RBC 0.00 Immature Gran % 2 H Nucleated RBC % 0 Sodium 141 143 Potassium 3.6 3.9 Chloride 105 106 Carbon Dioxide 28.0 29.6 Anion Gap 8 7 BUN 10 9 Creatinine 0.8 0.6 Estim Creat Clear Calc 96.8 129.1 eGFR > 60 > 60 BUN/Creatinine Ratio 13 15 Glucose 104 D 81 Calculated Osmolality 280 282 Lactic Acid 3.0 H Calcium 7.9 L 7.8 L Corrected Calcium 9.3 9.4 Phosphorus 2.7 2.9 Magnesium 1.6 Total Bilirubin 1.2 D AST 88 H ALT 53 H Alkaline Phosphatase 184 H D Total Protein 4.5 L Albumin 2.3 L 2.0 L Globulin 2.5 Albumin/Globulin Ratio 0.8 L Vancomycin Trough ABG Interpretation ABG results: 12/14/24 13:22 VBG pH 7.42 VBG pCO2 38 VBG pO2 120 H VBG Base Excess 0 Quality Measures Quality Measures VTE prophylaxis and sepsis Current suspected stage: ruled out Possible source: skin/soft tissue Blood cultures ordered: yes Antibiotic ordered: Yes Assessment & Plan Assessment Current Active Medications: Generic Name Dose Route Start Last Admin Trade Name Freq PRN Reason Stop Dose Admin Acetaminophen 650 mg 12/14/24 14:15 Acetaminophen 325 Mg Tablet PO 01/13/25 04:35 Q6HR PRN Fever >101.5 Acetaminophen 650 mg 12/14/24 14:15 Acetaminophen 325 Mg Tablet PO 01/13/25 04:35 Q6HR PRN PAIN SCALE 1-3 (mild Albuterol/Ipratropium 3 ml 12/14/24 04:06 Albuterol/Ipratropium (Duoneb) Rt Charisse 3 Ml Nebu INH 01/13/25 06:59 Q4HRRT PRN wheezing Apixaban 5 mg 12/14/24 09:00 12/16/24 08:24 Apixaban 2.5 Mg Tablet PO 01/04/25 08:59 5 mg BID DA Administration Ergocalciferol 0 ea 12/14/24 11:00 12/14/24 11:21 Capsule 1.25 Mg PO 01/13/25 10:59 1.25 capsule QWEEK DA Administration Folic Acid 1 mg 12/14/24 21:00 12/16/24 08:24 Folic Acid 1 Mg Tablet PO 12/19/24 20:59 1 mg BID DA Administration Furosemide 80 mg 12/15/24 09:45 12/16/24 08:25 Furosemide Inj 10 Mg/Ml 4ml Vial IVP 01/14/25 09:44 80 mg QDAY DA Administration Albumin Human 12.5 gm in 250 mls @ 100 mls/hr 12/14/24 09:45 12/16/24 08:23 Albuminar-5 Ivpb IV 01/13/25 09:44 100 mls/hr QDAY DA Administration Norepinephrine/Dextrose 8 mg in 250 mls @ 13.82 mls/hr 12/14/24 12:27 12/16/24 02:12 Levophed In D5w 8mg/250ml IV 01/13/25 12:26 0 mcg/kg/min .Q18H6M PRN 0 mls/hr PER PROTOCOL Titration Protocol 0.05 MCG/KG/MIN Cefepime HCl 2 gm/ Sodium 50 mls @ 100 mls/hr 12/15/24 09:27 12/16/24 06:34 Chloride IV 12/22/24 09:26 Infused Q8HR DA Infusion Magnesium Sulfate 4 gm in 50 mls @ 12.5 mls/hr 12/16/24 07:32 12/16/24 08:42 Magnesium Sulfate Ivpb IV 12/16/24 11:31 12.5 mls/hr X1 ONE Administration Levothyroxine Sodium 50 mcg 12/14/24 07:30 12/16/24 05:23 Levothyroxine Sodium 25 Mcg Tablet PO 01/13/25 07:29 50 mcg ACBR DA Administration Lidocaine 1 patch 12/14/24 04:02 Lidocaine 5% 1 Patch TOP QDAY PRN LOCALIZED PAIN Lorazepam 0.5 mg 12/14/24 11:57 Lorazepam 0.5 Mg Tablet PO 12/19/24 11:56 Q4HR PRN CIWA Score 2-6 Lorazepam 1 mg 12/14/24 11:57 Lorazepam 0.5 Mg Tablet PO 12/19/24 11:56 Q4HR PRN CIWA SCORE 7-11 Lorazepam 2 mg 12/14/24 11:57 Lorazepam 0.5 Mg Tablet PO 12/19/24 11:56 Q4HR PRN CIWA SCORE 12-15 Midodrine 5 mg 12/15/24 14:00 12/16/24 05:23 Midodrine 5 Mg Tablet PO 01/14/25 13:59 5 mg TID DA Administration Nicotine 14 mg 12/15/24 09:00 12/16/24 08:22 Nicotine Patch 14 Mg/24 Hr Patch.Td24 TOP 01/14/25 08:59 14 mg QDAY DA Administration Ondansetron HCl 4 mg 12/14/24 04:36 Ondansetron Inj 2 Mg/Ml Inj 2 Ml IVP 01/13/25 04:35 Q6H PRN NAUSEA OR VOMITING Protocol Pantoprazole Sodium 40 mg 12/14/24 09:00 12/16/24 08:24 Pantoprazole 40 Mg Tablet PO 01/13/25 08:59 40 mg DAILY DA Administration Pregabalin 100 mg 12/14/24 08:30 12/16/24 05:23 Pregabalin 25 Mg Capsule PO 01/13/25 08:29 100 mg TID DA Administration Spironolactone 25 mg 12/15/24 09:45 12/16/24 08:24 Spironolactone 25 Mg Tablet PO 01/14/25 09:44 25 mg BID DA Administration Thiamine HCl 100 mg 12/14/24 21:00 12/16/24 08:24 Thiamine 100 Mg Tablet PO 12/19/24 20:59 100 mg BID DA Administration Plan 64 years old female with PMH of alcoholic liver cirrhosis, 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 Patient admitted and held in ED initially, upgraded to ICU for shock needing pressors. Neurology No acute problems Cardiovascular #Anasarca Patient has lower lower extremity swelling all the way up to the lower abdomen Last echo was on 05/2024 showed an EF of 60 to 65%. With diastolic grade 1 dysfunction. Plan: Will continue diurese with spironolactone 25 mg twice daily and Lasix 80 mg daily Keep midodrine 5 mg 3 times daily to achieve diuresis, but discontinue once proper diuresis achieved Albumin should help with diuresis Daily weights Fluid restrictions 1800 cc Repeat echo ordered #Septic shock DDx: Bilateral Lower Extremity cellulities Versus possible pneumonia with chest x-ray imaging showing early bibasilar pneumonia. Cellulitis does not appear to be adequate explanation for the shock, UTI Dx: -Patient has severe tenderness on lower extremities bilaterally with disproportionate tenderness on right upper thigh, surgery Dr. Zamudio was notified and did not have high concern for necrotizing fasciitis. - Wound care was consulted were asked to demarcate with daily reassessments for spread. ? Blood pressure 91/38 after nitroglycerin x 2 was given ? Blood pressure increased to 140/80 3:06 liters of fluid, MAP declined to 58. ? Continued fluids with 4.5 L total, midodrine x 2 given. ? Lactate initially at 8.[address] to 3.4 after 3 L of fluid given ? Chest x-ray shows early pneumonia left base ?On bedside ultrasound IVC not variable with respirations, was minimally dilated; RV and LV function appeared intact, obvious abnormalities with heart function.. ? Lower extremity CT showed no air in the tissue and only diffuse edema in the subcutaneous fatty tissues. ? LRINEC score of 3, low probability of nec fasciitis, does not rule out. ? DC clindamycin, vancomycin, meropenem (12/14-12/15) as low suspicion for nec fascitis Rx: - Continue cefepime (12/15-) ? Follow-up cultures blood cultures (negative) and sputum culture - Off vasopressors - Wound care consulted, will demarcate cellulitis for growht #History of DVT on Eliquis for about 1 year Dx: - Had an unprovoked DVT ~ 1 year ago, has been on eliquis ever since ? Venous Doppler showed no DVT Rx: - Continue Eliquis 5 mg po bid #Elevated QTc on EKG Dx: - EKG showed qtc of [address]-T changes. Rx: ? Magnesium repleted ? Repeat EKG today ?Keep mag above 2 and potassium above 4 ?Avoid QTc prolonging agents Respiratory #Acute hypoxic respiratory failure due to community-acquired pneumonia DDx: Pneumonia, AGUSTIN due to obesity, history of COPD Dx: - history of COPD not on home oxygen, not on home oxygen ? VBG was favorable ? Chest x-ray shows early pneumonia left base Rx: -On cefepime ?Follow-up with sputum cultures ? On 4 L nasal cannula ? CPAP at night #COPD Dx: -Not on home o2 Rx: -Continuing supplemental o2 with goal o2 88-92% -Will need LAMA on outpatient -DuoNebs every 4 hours as needed GI and F/E/N #Cirrhosis due to alcohol use disorder Dx: ? CT space AP showed hepatosplenomegaly, severe diffuse fatty infiltration throughout the liver ? T. bili of 1.7, AST 108, ALT 71 alk phos 231, albumin 2.0, improving Rx: - Continue albumin, midodrine, spironolactone, and lasix ? Trend liver function tests ?Avoid hepatotoxic agents #Alcohol withdrawal Dx: ? Patient has a history of alcohol use disorder. Rx: ? CIWA protocol ?Thiamine and folic acid #Hypoalbuminemia Albumin 2 12/16 Could be related to malnutrition Could be contributing to patient's fluid overload status Consider Beri Beri in differentials Plan: Increased Albumin to 75g qday Ordered thiamine levels Renal #Hypokalemia, resolved Dx: -presented with potassium of 3.1, currently 3.9 12/15/2024 Rx: -continue to trend potassium and e-lytes #Lactic acidosis, no anion gap, improving Dx: ? Corrected anion gap at 15.3 with sodium, chloride, albumin taken into account ? Lactic acid initially at 8.5, after 3 L fluid decreased to 3.4. - DDx thiamine deficiency as patient has had chronic elevation of lactic acid vs due to congestion vs due to impaired hepatic clearance Rx; -Treating underlying infection and fluid overload status Heme # Macrocytic anemia due to chronic alcohol use Dx: ?Hemoglobin 8.5 12/16 ? No signs or symptoms of bleeding Rx: ? Will continue to monitor for signs of bleeding, trend hemoglobin levels with daily labs #Coagulopathy Dx: ? PT 12.9 in setting of cirrhosis Rx: ? Will continue to monitor for bleeding Endo #Hypertriglyceridemia Dx: Triglycerides 374, cholesterol 130, LDL 50, HDL less than 5. Rx: -Outpatient follow up to get under control #Hypothyroidism Dx: ? TSH 6.59, free T4 0.84 Rx: ? Levothyroxine 50 mcg p.o. ACBR ID #Cellulitis #Community-acquired pneumonia #UTI/Asymptomatic Pyuria Dx: ? No white count, no fever Rx: ? Follow-up blood cultures and urine culture ? Continue Cefepime Disposition: Downgrade to medical floors DVT prophylaxis: Eliquis 5 mg twice daily GI prophylaxis: protonix 40 mg po daily Diet: regular diet, fluid restriction Trejo: yes Lines: Peripherals Drips: Levophed Vent: none CODE STATUS: DNR Case disclosed with Attending Dr. Mitchel Pitts PGY2 Disclaimer: Even though this this note was dictated by speech recognition and even though it was carefully revised there may still be minor errors in human resource adviser due to voice recognition software. Attending Provider Attestation/Addendum Patient seen and examined with above resident, Ravi Pitts MD. I agree with the findings, assessment, and plan of care as document except for any differences below. Patient with questionable cirrhosis secondary to alcohol though biochemical markers suggest this along with significant anasarca secondary to hypoalbuminemia. Patient remains on appropriate cefepime with resolution of vasopressor requirements now. Albumin was used to augment ongoing diuresis along with vasopressors effectively. Her lower extremity swelling continues to improve without need for midodrine at this point. Renal function remained stable. Patient counseled extensively about need for alcohol use cessation as well as improvements in nutrition. Patient's at bedside was also updated on plan of care. Patient otherwise stable for transfer to medicine yan bed that she has successfully off of vasopressor support. Cautious continue use of combination therapy with loop diuretics and Aldactone. Goal to optimize fluid status prior to discharge in the coming days. And completion of course of antibiotics for community-acquired pneumonia. Follow-up on cultures while on floor to ensure appropriate antibiotic transition at time of discharge. Total critical care time: I personally spent 35 minutes for review of physiologic parameters, directing plan of care throughout the day, coordination of care with other subspecialist, and counseling patient extensively at bedside. This is exclusive of time spent teaching on staff or performing any separate billable procedures. Patient remains at significant risk for further morbidity and mortality warranting close monitoring and care only available in the ICU. Critical care services required for septic/distributive shock, community-acquired pneumonia, anasarca, alcoholic steatohepatitis/cirrhosis.
--- NOTE | 2024-12-16 09:38 | PC.SS ---
Addendum entered by ISAMAR Hunter 12/16/24 10:49: SS update: on 2 L oxygen. Original Note: Patient is a 64 year old female presenting to the hospital for b/L leg cellulitis. WORK STUDY STUDENT placed phone call to patient?s next of kin Babs Odell. WORK STUDY STUDENT introduced self, role, and reason for visit. Babs stated that she is on patients advanced directive and stated that patient?s wishes are to return home once medically clear. Babs reported that patient has a close relationship with her daughter Anna Murillo but Babs is the primary point of contact as she is also her caregiver. Babs stated that patient has a walker, wheelchair, electric chair, shower chair, bed rails. Babs stated that [employer] delivered oxygen but then took it back. Babs stated that she is unsure of why they took it but she was on 2L, WORK STUDY STUDENT inquired when they took it, Babs stated that a couple of months ago. Babs stated that patients PCP is Dr. Cristina at the [facility] but patient was last seen by Margo Weeks at [facility] two weeks ago. Babs requested update on patients health, WORK STUDY STUDENT transferred Babs to ICU nurse station and provided Babs with room number. Decision maker: Babs Odell [phone] D/C: home PCP: Dr. Cristina
--- NOTE | 2024-12-16 09:58 | ECHO_ITS ---
Patient Info Name: Fabiola Caban Age: 64 years : 1960 Gender: Female Ht: 163 cm Wt: 125 kg BSA: 2.45 m2 BP: 110 / 65 mmHg HR: 101 bpm Heart Rhythm: Sinus Rhythm Exam Date: 12/16/2024 2:06 PM Admit Date: 12/14/2024 Site: [facility] Patient Status: I Technical Quality: Poor Exam Type: CA echo doppler complete Reason for Poor Study: lung interference/attenuation Auto Research Engineer: Shivani Alarcon Ordering Physician: Ravi Pitts Study Info Indications Anasarca - Primary Location: S2SX Left Ventricular Outflow Tract Name Value Normal LVOT Doppler LVOT Peak Velocity 132 cm/s LVOT Mean Gradient 4 mmHg LVOT VTI 27 cm LVOT VTI/AV VTI Ratio 0.8 Mitral Valve Name Value Normal MV Annular TDI MV Septal e' Velocity 9.4 cm/s MV Lateral e' Velocity 12.5 cm/s MV e' Average 10.93 cm/s Tricuspid Valve Name Value Normal TV Regurgitation Doppler TR Peak Velocity 248 cm/s Estimated PAP/RSVP RA Pressure 8 mmHg <=5 PA Systolic Pressure 33 mmHg <36 RV Systolic Pressure 33 mmHg <36 TV Annular TDI TV Lateral Madai s' Velocity 12.2 cm/s >=9.5 Aortic Valve Name Value Normal AV Doppler AV Peak Velocity 165 cm/s AV Mean Gradient 6 mmHg AV VTI 33 cm AV DI (Fam) 0.80 Ventricles Name Value Normal LV Dimensions 2D/MM IVS Diastolic Thickness (2D) 1.0 cm 0.6-0.9 LVID Diastole (2D) 4.5 cm 3.8-5.2 LVIW Diastolic Thickness (2D) 1.1 cm 0.6-0.9 LVID Systole (2D) 3.2 cm 2.2-3.5 LV Mass (2D Cubed) 163.98 g 67.00-162.00 LV Mass Index (2D Cubed) 67 g/m2 43-95 Relative Wall Thickness (2D) 0.49 <=0.42 IVS/LVIW Diastolic Thickness (2D) 0.91 0.00-1.50 LV Fractional Shortening/Ejection Fraction 2D/MM LV Fractional Shortening (2D) 29 % 27-45 LV EF (2D Teichholz) 56 % LV EF (BP MOD) 55 % 54-74 RV Dimensions 2D/MM TV Lateral Madai s' Velocity 12.2 cm/s >=9.5 Left Ventricle Left ventricular chamber dimension is normal. Left ventricular systolic function is normal with an ejection fraction by Biplane Method of Discs of 55 %. There is mild concentric hypertrophy noted in the left ventricle. Left ventricular segmental wall motion is grossly normal, however endocardial definition is limited. There is indeterminate diastolic function in the left ventricle. Right Ventricle Right ventricular chamber dimension is mildly enlarged. Right ventricular systolic function is normal. Left Atrium Left atrial chamber dimension is normal. Right Atrium Right atrial chamber dimension is normal. Aortic Valve There is no aortic valve sclerosis. There is no aortic valve stenosis. There is no aortic valve regurgitation. Pulmonic Valve The pulmonic valve is not well visualized. There is no pulmonic valve stenosis. There is no pulmonic regurgitation. Mitral Valve The mitral valve has normal leaflets. There is no mitral valve stenosis. There is trace mitral valve regurgitation. Tricuspid Valve The tricuspid valve leaflets are normal. There is no tricuspid valve stenosis. There is trace tricuspid valve regurgitation. No pulmonary hypertension, estimated pulmonary arterial systolic pressure is 33 mmHg and systemic blood pressure of 110 mmHg in systole. Pericardium/Pleural There is no pericardial effusion. No pleural effusion visualized. Aorta The aortic measurements are indexed to age and body surface area. The aortic root at the sinus of Valsalva is not well visualized. The prox ascending aorta is not well visualized. Summary 1. Left ventricle size is normal and systolic function is normal. Ejection fraction is 55 %. There is indeterminate diastolic function. There is mild concentric hypertrophy noted. 2. Right ventricle chamber size is mildly enlarged and systolic function is normal. Estimated RVSP is 33 mmHg. 3. There is trace mitral valve regurgitation. 4. There is trace tricuspid valve regurgitation. Report Signatures Finalized by Gilda Parrish on 12/17/2024 02:01 PM
[2024-12-16 10:49] LABS: Reflex Lactate? Y
[2024-12-16 11:12] LABS: Lactic Acid, 3 HR 3.6 mMol/L (0.4-2.0)
--- NOTE | 2024-12-16 12:55 | EKG_ITS ---
[facility] Test Date: 2024-12-16 Pat Name: EDUARDO SINGH Department: Room: S257A Gender: Female Manager Vehicle: ROJELIO : 1960 Requested By: Ravi Pitts Order Number: [id number] Reading MD: Ravi Pitts Measurements Intervals [place] Rate: 100 P: 54 AL: 152 QRS: -35 QRSD: 108 T: 69 QT: 362 QTc: 469 Interpretive Statements SINUS TACHYCARDIA MARKED LEFT AXIS DEVIATION LOW QRS VOLTAGE IN PRECORDIAL LEADS POSSIBLE ANTERIOR MYOCARDIAL INFARCTION , PROBABLY OLD Compared to ECG 12/13/2024 20:09:53 Myocardial infarct finding now present Sinus rhythm no longer present Intraventricular conduction delay no longer present T-wave abnormality no longer present /store/S0/[id number]
[2024-12-16] MEDS: ALBUMIN HUMAN-KJDA 25% IVPB 25 GM/100 ML BTL IV ×3 (14:35→17:25)
--- NOTE | 2024-12-16 19:34 | ESPR_ITS ---
<Statement entered by Moiz Guzmán MD - 12/17/24 06:11> Patient was seen and examined at bedside. I agree on the assessment and plan on this note as documented by resident Rich Worley DO PGY1. 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 Patient managed in the intensive care unit, requiring IV vasopressors, started on IV antibiotics, was weaned off of pressor support and downgraded to medical floors, currently on [facility] protocol for alcohol withdrawal management, being diuresed with spironolactone and Lasix, fairly stable will continue IV antibiotics and plan discharge once patient is stable. Case discussed with attending Dr. 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 Also present were SOB and chest pain. She denies any fever, chills, palpitations, dizziness, urinary frequency, urinary urgency, burning micturition, nausea, vomiting, melena, recent trauma. Patient admitted and held in ED initially, upgraded to ICU for shock (MAP <65) needing pressors (Levophed). WBC and Hgb remained stable. lower extremity CT did not show any gas in the tissue, only showed severe diffuse edema of BLE. Pt on cefepime and diuretics. Patient this morning was -1 L and her lower extremity edema seems to be improving. Patient was taken off vasopressors around 3 AM in the morning. If the patient receives proper diuresis patient can be titrated off midodrine. Patient will also require ambulatory O2 test to determine if patient needs home oxygen. Lactic acid continue to uptrend, but no signs of hypoperfusion at this time. Lactic acid could be secondary to congestion. Otherwise no other complaints. Exam Vital Signs Temp Pulse Resp BP Pulse Ox O2 Del Method O2 Flow Rate 97.2 F 101 H 19 107/59 L 96 Nasal Cannula 2 12/16/24 16:00 12/16/24 18:42 12/16/24 18:42 12/16/24 16:00 12/16/24 18:42 12/16/24 16:00 12/16/24 18:42 FiO2 30 12/16/24 03:42 Narrative Exam General: A/O x3, no acute distress, obese Eyes: PERRL, EOMI. Anicteric, vision grossly intact. Ears: No ear pain, no ear discharge, Hearing grossly intact. Nose: No nasal discharge. Mouth/Throat: Moist mucous membranes, no redness, no lesions. Neck: Neck supple, non-tender, no cervical lymphadenopathy. Lungs: Clear KATIE to auscultation and percussion, No accessory muscle use. Cardio: Normal S1/S2, regular rhythm, no murmurs, no JVD Abdomen: Soft, non-tender, no palpable masses, peristalsis present, no guarding or rebound. Extremities: Symmetrical, no significant deformities, 2+ peripheral edema upto lower abdomen, but lower extremities are softer and there is wrinkling on the feet, non-tender, peripheral pulses difficult to palpate due to swelling. Skin: No rashes, no lesions, warm to touch. Neuro: No focal neurological deficits. motor and sensory intact Psych: Cooperative, appropriate mood and effect. Objective Labs 12/17/24 05:00 12/17/24 05:00 Labs: Laboratory Results - last 24 hr 12/16/24 12/16/24 12/16/24 04:44 07:36 10:57 WBC 4.6 RBC 2.73 L Hgb 8.5 L Hct 29.3 L MCV 107 H MCH 31.1 MCHC 29.0 L RDW Std Deviation 81.0 H Plt Count 157 D Neut % (Auto) 52 Lymph % (Auto) 25 [place] % (Auto) 16 H Eos % (Auto) 4 Baso % (Auto) 2 Neut # (Auto) 2.4 Lymph # (Auto) 1.2 [place] # (Auto) 0.7 Eos # (Auto) 0.2 Baso # (Auto) 0.1 Immature Gran # (Auto) 0.11 H Absolute Nucleated RBC 0.00 Immature Gran % 2 H Nucleated RBC % 0 Sodium 143 Potassium 3.9 Chloride 106 Carbon Dioxide 29.6 Anion Gap 7 BUN 9 Creatinine 0.6 Estim Creat Clear Calc 129.1 eGFR > 60 BUN/Creatinine Ratio 15 Glucose 81 Calculated Osmolality 282 Lactic Acid 3.0 H 3.6 H Calcium 7.8 L Corrected Calcium 9.4 Phosphorus 2.9 Magnesium 1.6 Total Bilirubin 1.2 D AST 88 H ALT 53 H Alkaline Phosphatase 184 H D Total Protein 4.5 L Albumin 2.0 L Globulin 2.5 Albumin/Globulin Ratio 0.8 L ABG Interpretation ABG results: 12/14/24 13:22 VBG pH 7.42 VBG pCO2 38 VBG pO2 120 H VBG Base Excess 0 Quality Measures Quality Measures VTE prophylaxis and sepsis Current suspected stage: sepsis Possible source: skin/soft tissue Blood cultures ordered: yes Antibiotic ordered: Yes Assessment & Plan Assessment Current Active Medications: Generic Name Dose Route Start Last Admin Trade Name Freq PRN Reason Stop Dose Admin Acetaminophen 650 mg 12/14/24 14:15 Acetaminophen 325 Mg Tablet PO 01/13/25 04:35 Q6HR PRN Fever >101.5 Acetaminophen 650 mg 12/14/24 14:15 Acetaminophen 325 Mg Tablet PO 01/13/25 04:35 Q6HR PRN PAIN SCALE 1-3 (mild Albuterol/Ipratropium 3 ml 12/14/24 04:06 Albuterol/Ipratropium (Duoneb) Rt Charisse 3 Ml Nebu INH 01/13/25 06:59 Q4HRRT PRN wheezing Apixaban 5 mg 12/14/24 09:00 12/16/24 08:24 Apixaban 2.5 Mg Tablet PO 01/04/25 08:59 5 mg BID DA Administration Ergocalciferol 0 ea 12/14/24 11:00 12/14/24 11:21 Capsule 1.25 Mg PO 01/13/25 10:59 1.25 capsule QWEEK DA Administration Folic Acid 1 mg 12/14/24 21:00 12/16/24 08:24 Folic Acid 1 Mg Tablet PO 12/19/24 20:59 1 mg BID DA Administration Furosemide 80 mg 12/15/24 09:45 12/16/24 08:25 Furosemide Inj 10 Mg/Ml 4ml Vial IVP 01/14/25 09:44 80 mg QDAY DA Administration Cefepime HCl 2 gm/ Sodium 50 mls @ 100 mls/hr 12/15/24 09:27 12/16/24 14:26 Chloride IV 12/22/24 09:26 100 mls/hr Q8HR DA Administration Albumin Human 25 gm in 100 mls @ 100 mls/hr 12/16/24 13:15 12/16/24 14:35 Albuminex 25% Ivpb IV 12/19/24 13:14 100 mls/hr QDAY@0900 DA Administration Albumin Human 25 gm in 100 mls @ 100 mls/hr 12/16/24 14:15 12/16/24 16:09 Albuminex 25% Ivpb IV 12/19/24 14:14 100 mls/hr QDAY@1000 DA Administration Albumin Human 25 gm in 100 mls @ 100 mls/hr 12/16/24 15:15 12/16/24 17:25 Albuminex 25% Ivpb IV 12/19/24 15:14 100 mls/hr QDAY@1100 DA Administration Levothyroxine Sodium 50 mcg 12/14/24 07:30 12/16/24 05:23 Levothyroxine Sodium 25 Mcg Tablet PO 01/13/25 07:29 50 mcg ACBR DA Administration Lidocaine 1 patch 12/14/24 04:02 Lidocaine 5% 1 Patch TOP QDAY PRN LOCALIZED PAIN Protocol Lorazepam 0.5 mg 12/14/24 11:57 Lorazepam 0.5 Mg Tablet PO 12/19/24 11:56 Q4HR PRN CIWA Score 2-6 Lorazepam 1 mg 12/14/24 11:57 Lorazepam 0.5 Mg Tablet PO 12/19/24 11:56 Q4HR PRN CIWA SCORE 7-11 Lorazepam 2 mg 12/14/24 11:57 Lorazepam 0.5 Mg Tablet PO 12/19/24 11:56 Q4HR PRN CIWA SCORE 12-15 Midodrine 5 mg 12/16/24 11:13 12/16/24 14:23 Midodrine 5 Mg Tablet PO 01/14/25 13:59 5 mg TID DA Administration Nicotine 14 mg 12/15/24 09:00 12/16/24 08:22 Nicotine Patch 14 Mg/24 Hr Patch.Td24 TOP 01/14/25 08:59 14 mg QDAY DA Administration Ondansetron HCl 4 mg 12/14/24 04:36 Ondansetron Inj 2 Mg/Ml Inj 2 Ml IVP 01/13/25 04:35 Q6H PRN NAUSEA OR VOMITING Protocol Pantoprazole Sodium 40 mg 12/14/24 09:00 12/16/24 08:24 Pantoprazole 40 Mg Tablet PO 01/13/25 08:59 40 mg DAILY DA Administration Pregabalin 100 mg 12/14/24 08:30 12/16/24 14:24 Pregabalin 25 Mg Capsule PO 01/13/25 08:29 100 mg TID DA Administration Spironolactone 25 mg 12/15/24 09:45 12/16/24 08:24 Spironolactone 25 Mg Tablet PO 01/14/25 09:44 25 mg BID DA Administration Thiamine HCl 100 mg 12/14/24 21:00 12/16/24 08:24 Thiamine 100 Mg Tablet PO 12/19/24 20:59 100 mg BID DA Administration Plan 64 years old female with PMH of alcoholic liver cirrhosis, 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 Patient admitted and held in ED initially, upgraded to ICU for shock needing pressors. #Cellulitis #Community-acquired pneumonia #UTI/Asymptomatic Pyuria #Septic shock, resolved #Lactic acidosis, no anion gap, improving DDx: Bilateral Lower Extremity cellulities Versus possible pneumonia with chest x-ray imaging showing early bibasilar pneumonia. Cellulitis does not appear to be adequate explanation for the shock, UTI -Patient has severe tenderness on lower extremities bilaterally with disproportionate tenderness on right upper thigh, surgery Dr. Zamudio was notified and did not have high concern for necrotizing fasciitis. - Wound care was consulted were asked to demarcate with daily reassessments for spread. ? Blood pressure 91/38 after nitroglycerin x 2 was given ? Blood pressure increased to 140/80 3:06 liters of fluid, MAP declined to 58. ? Continued fluids with 4.5 L total, midodrine x 2 given. ? Lactate initially at 8.[address] to 3.4 after 3 L of fluid given ? Chest x-ray shows early pneumonia left base ?On bedside ultrasound IVC not variable with respirations, was minimally dilated; RV and LV function appeared intact, obvious abnormalities with heart function.. ? Lower extremity CT showed no air in the tissue and only diffuse edema in the subcutaneous fatty tissues. ? LRINEC score of 3, low probability of nec fasciitis, does not rule out. ? DC clindamycin, vancomycin, meropenem (12/14-12/15) as low suspicion for nec fascitis ? Corrected anion gap at 15.3 with sodium, chloride, albumin taken into account ? Lactic acid initially at 8.5, after 3 L fluid decreased to 3.4. - DDx thiamine deficiency as patient has had chronic elevation of lactic acid vs due to congestion vs due to impaired hepatic clearance Plan: - Continue cefepime (12/15-) ? Follow-up cultures blood cultures (negative) and sputum culture - Off vasopressors - Wound care consulted, will demarcate cellulitis for growht ? Follow-up blood cultures and urine culture #Acute hypoxic respiratory failure due to community-acquired pneumonia #COPD DDx: Pneumonia, AGUSTIN due to obesity, history of COPD - history of COPD not on home oxygen, not on home oxygen ? VBG was favorable ? Chest x-ray shows early pneumonia left base Plan: -On cefepime ?Follow-up with sputum cultures ? On 4 L nasal cannula ? CPAP at night -Continuing supplemental o2 with goal o2 88-92% -Will need LAMA on outpatient -DuoNebs every 4 hours as needed #Alcohol withdrawal ? Patient has a history of alcohol use disorder. Plan: ? CIWA protocol ?Thiamine and folic acid #Cirrhosis due to alcohol use disorder #Coagulopathy ? CT space AP showed hepatosplenomegaly, severe diffuse fatty infiltration throughout the liver ? T. bili of 1.7, AST 108, ALT 71 alk phos 231, albumin 2.0, improving ? PT 12.9 in setting of cirrhosis Plan: - Continue albumin, midodrine, spironolactone, and lasix ? Trend liver function tests ?Avoid hepatotoxic agents #Anasarca Patient has lower lower extremity swelling all the way up to the lower abdomen Last echo was on 05/2024 showed an EF of 60 to 65%. With diastolic grade 1 dysfunction. Plan: Will continue diurese with spironolactone 25 mg twice daily and Lasix 80 mg daily Keep midodrine 5 mg 3 times daily to achieve diuresis, but discontinue once proper diuresis achieved Albumin should help with diuresis Daily weights Fluid restrictions 1800 cc Repeat echo ordered #Hypoalbuminemia Albumin 2 11/2 Could be related to malnutrition Could be contributing to patient's fluid overload status Consider Beri Beri in differentials Plan: Increased Albumin to 75g qday Ordered thiamine levels #History of DVT on Eliquis for about 1 year - Had an unprovoked DVT ~ 1 year ago, has been on eliquis ever since ? Venous Doppler showed no DVT Plan: - Continue Eliquis 5 mg po bid #Elevated QTc on EKG Dx: - EKG showed qtc of [address]-T changes. Rx: ? Magnesium repleted ? Repeat EKG today ?Keep mag above 2 and potassium above 4 ?Avoid QTc prolonging agents # Macrocytic anemia due to chronic alcohol use ?Hemoglobin 8.5 12/16 ? No signs or symptoms of bleeding Plan: ? Will continue to monitor for signs of bleeding, trend hemoglobin levels with daily labs #Hypertriglyceridemia Dx: Triglycerides 374, cholesterol 130, LDL 50, HDL less than 5. Rx: -Outpatient follow up to get under control #Hypothyroidism Dx: ? TSH 6.59, free T4 0.84 Rx: ? Levothyroxine 50 mcg p.o. ACBR #Hypokalemia, resolved Disposition: Downgrade to medical floors DVT prophylaxis: Eliquis 5 mg twice daily GI prophylaxis: protonix 40 mg po daily Diet: regular diet, fluid restriction CODE STATUS: DNR This case was discussed with my attending physician, Dr. Koenig, and senior resident, Dr Guzmán. Rich Worley, DO PGY I Attending Provider Attestation/Addendum I have examined the patient, reviewed labs and imaging findings, discussed the case with the resident(s), and reviewed entered orders. I agree with the plan of care as outlined in this note. Dr. Liberty MD
[2024-12-17] VITALS (16 sets, daily range): BP systolic 95–127; BP diastolic 61–84; PULSE 76–120; RESP 16–98; TEMP 36.2–36.8; O2SAT 92–98; BMI 47.7
[2024-12-17 05:41] LABS: Basophils # (Auto) 0.1 Thou/mm3 (0.0-0.2); Basophils % (Auto) 2 % (0-2.5); Eosinophils # (Auto) 0.1 Thou/mm3 (0.0-0.5); Eosinophils % (Auto) 3 % (0-10); Hematocrit 28.9 % (36.0-46.0); Immature Granulocytes Auto 0.09 Thou/mm3 (0.00-0.00); Lymphocytes # (Auto) 1.1 Thou/mm3 (1.0-4.8); Lymphocytes % (Auto) 22 % (10-50); Mean Corpuscular HGB Conc 30.1 g/dl (31.0-37.0); Mean Corpuscular Hemoglobin 32.5 pg (25.0-35.0); Mean Corpuscular Volume 108 fL (80-100); Monocytes # (Auto) 0.8 Thou/mm3 (0.0-0.8); Monocytes % (Auto) 15 % (0-12); Neutrophils # (Auto) 2.9 Thou/mm3 (1.8-7.7); Neutrophils % (Auto) 56 % (37-80); Nucleated Red Blood Cell # 0.00 Thou/mm3 (0.00-0.00); Nucleated Red Blood Cell % 0 /100 WBC (0); Platelet Count 159 Thou/mm3 (140-440); RDW Standard Deviation 83.0 fL (36.4-46.3); Red Blood Count 2.68 Miln/mm3 (4.00-5.20); White Blood Count 5.1 Thou/mm3 (3.6-11.0)
[2024-12-17 05:45] LABS: Hemoglobin 8.7 g/dL (12.0-16.0)
[2024-12-17] MEDS: LEVOTHYROXINE SODIUM 25 MCG TABLET 50 MCG PO (05:59)
[2024-12-17] MEDS: MIDODRINE 5 MG TABLET PO ×2 (05:59→21:58)
[2024-12-17] MEDS: PREGABALIN 25 MG CAPSULE 100 MG PO ×3 (05:59→21:57)
[2024-12-17] MEDS: CEFEPIME INJ 2 GM in SODIUM CHLORIDE 0.9% (Popper) 50 ML IV ×3 (06:00→21:57)
[2024-12-17 06:05] LABS: Alanine Aminotransferase 45 U/L (10-49); Albumin, Serum 2.8 gm/dL (3.4-4.8); Albumin/Globulin Ratio 1.2 (1.2-2.2); Alkaline Phosphatase 165 U/L (46-116); Anion Gap 7 (7-16); Aspartate Amino Transferase 75 U/L (0-34); BUN/Creatinine Ratio 13 Ratio (12-20); Bilirubin,Total 1.7 mg/dL (0.3-1.2); Blood Urea Nitrogen 8 mg/dL (9-23); Calcium 8.3 mg/dL (8.3-10.6); Calcium (Corrected) 9.3 mg/dL (8.5-10.1); Carbon Dioxide 29.9 mMol/L (20.0-31.0); Chloride 107 mMol/L (98-107); Creatinine (Component) 0.6 mg/dL (0.6-1.3); Estimated Creatinine Clearance 127.2 mL/min (>60); Globulin 2.4 gm/dL (2.3-3.5); Glucose 85 mg/dL (74-106); Magnesium 1.8 mg/dL (1.6-2.6); Osmolality,Calculated 284 (275-295); Phosphorous 2.7 mg/dL (2.4-5.1); Potassium 3.5 mMol/L (3.4-5.1); Sodium 144 mMol/L (136-145); Total Protein 5.2 gm/dL (5.7-8.2); eGFR > 60 See Note
[2024-12-17 06:50] LABS: INR 1.3 (0.9-1.3); Prothrombin Time 13.5 Seconds (9.0-12.2)
[2024-12-17] MEDS: PANTOPRAZOLE 40 MG TABLET PO (10:00)
[2024-12-17] MEDS: THIAMINE 100 MG TABLET PO ×2 (10:00→20:22)
[2024-12-17] MEDS: FOLIC ACID 1 MG TABLET PO ×2 (10:00→20:22)
[2024-12-17] MEDS: SPIRONOLACTONE 25 MG TABLET PO ×2 (10:00→20:21)
[2024-12-17] MEDS: FUROSEMIDE INJ 10 MG/ML 4ML VIAL 80 MG IVP (10:01)
[2024-12-17] MEDS: NICOTINE PATCH 14 MG/24 HR PATCH.TD24 TOP (10:02)
[2024-12-17] MEDS: ALBUMIN HUMAN-KJDA 25% IVPB 25 GM/100 ML BTL IV ×3 (10:02→12:36)
[2024-12-17] MEDS: APIXABAN 2.5 MG TABLET 5 MG PO ×2 (10:02→20:22)
[2024-12-17] MEDS: Magnesium Sulfate 4 GM Ivpb 4 GM/50 ML BAG IV (11:45)
[2024-12-17] MEDS: POTASSIUM CHL 10 mEq IVPB 10 MEQ/100 ML BAG 100 MEQ IV ×4 (11:45→15:32)
--- NOTE | 2024-12-17 16:07 | PC.SS ---
Follow up note: ICU down grade. On IV antibiotic. On [facility] Protocol for alcohol withdrawals.
--- NOTE | 2024-12-17 16:54 | ESPR_ITS ---
<Statement entered by Moiz Guzmán MD - 12/17/24 20:51> Patient was seen and examined at bedside. I agree on the assessment and plan on this note as documented by resident Rich Worley DO PGY1. 64-year-old female with past medical history as below admitted for management of cellulitis, was upgraded to intensive care unit secondary to septic shock requiring IV pressors, patient's shock of distributive etiology likely septic with underlying sources UTI, pneumonia, cellulitis. Patient was weaned off of pressors and was downgraded yesterday to medical floor, continues to be on cefepime. Patient also had significant anasarca for which patient was aggressively diuresed in the emergency department, currently on Lasix 80 mg daily and spironolactone 25 mg twice daily, patient is still net positive for the hospitalization, will continue IV diuresis will schedule for albumin challenge in a.m. patient's home medication for chronic pain management resumed, patient does have refractory lactic acidosis. Will continue Eliquis 5 mg p.o. twice daily, levothyroxine, has a competent of AGUSTIN/OHS will continue CPAP at night. Plan discussed with patient at bedside, patient updated. Case discussed with attending MD Moiz Virgen MD PGY-2 Documentation for date of: 12/17/24 Subjective Subjective Interval history: Patient was seen and examined at bedside. No acute events took place overnight. Pt admits to SOB with minimal activity, like repositioning in bed. Requires 2L via NC for appropriate saturation. Patient reports pain in bilat legs and paresthesias in hands. Skin on hands is very dry. PT evaluated the pt who recommends home O2. Pt expresses that she prefers to go home upon discharge, instead of SNF. CIWA score 11 at 5PM and recieved Ativan 1mg. Exam Vital Signs Temp Pulse Resp BP Pulse Ox O2 Del Method O2 Flow Rate 97.4 F 76 18 120/61 94 L Room Air 2 12/17/24 16:00 12/17/24 16:00 12/17/24 16:00 12/17/24 16:00 12/17/24 16:00 12/17/24 16:00 12/17/24 08:00 FiO2 30 12/17/24 04:00 Narrative Exam General: A/O x3, no acute distress, obese Eyes: PERRL, EOMI. Anicteric, vision grossly intact. Ears: No ear pain, no ear discharge, Hearing grossly intact. Nose: No nasal discharge. Mouth/Throat: Moist mucous membranes, no redness, no lesions. Neck: Neck supple, non-tender, no cervical lymphadenopathy. Lungs: Expiratory wheezing over Lt lower lobe, No accessory muscle use. Cardio: Normal S1/S2, regular rhythm, no murmurs, no JVD Abdomen: Soft, non-tender, no palpable masses, peristalsis present, no guarding or rebound. Extremities: Symmetrical, no significant deformities, 2+ peripheral edema upto lower abdomen, but lower extremities are softer and there is wrinkling on the feet, non-tender, peripheral pulses difficult to palpate due to swelling. Relative weakness and decreased sensation along RLE. Skin: No rashes, no lesions, warm to touch. Neuro: No focal neurological deficits. motor and sensory intact Psych: Cooperative, appropriate mood and effect. Objective Labs 12/21/24 05:11 12/21/24 05:11 Labs: Laboratory Results - last 24 hr 12/17/24 05:00 WBC 5.1 RBC 2.68 L Hgb 8.7 L Hct 28.9 L MCV 108 H MCH 32.5 MCHC 30.1 L RDW Std Deviation 83.0 H Plt Count 159 Neut % (Auto) 56 Lymph % (Auto) 22 [place] % (Auto) 15 H Eos % (Auto) 3 Baso % (Auto) 2 Neut # (Auto) 2.9 Lymph # (Auto) 1.1 [place] # (Auto) 0.8 Eos # (Auto) 0.1 Baso # (Auto) 0.1 Immature Gran # (Auto) 0.09 H Absolute Nucleated RBC 0.00 Immature Gran % 2 H Nucleated RBC % 0 PT 13.5 H INR 1.3 Sodium 144 Potassium 3.5 Chloride 107 Carbon Dioxide 29.9 Anion Gap 7 BUN 8 L Creatinine 0.6 Estim Creat Clear Calc 127.2 eGFR > 60 BUN/Creatinine Ratio 13 Glucose 85 Calculated Osmolality 284 Calcium 8.3 Corrected Calcium 9.3 Phosphorus 2.7 Magnesium 1.8 Total Bilirubin 1.7 H D AST 75 H ALT 45 Alkaline Phosphatase 165 H Total Protein 5.2 L Albumin 2.8 L D Globulin 2.4 Albumin/Globulin Ratio 1.2 ABG Interpretation ABG results: 10/31/25 13:22 VBG pH 7.42 VBG pCO2 38 VBG pO2 120 H VBG Base Excess 0 Quality Measures Quality Measures VTE prophylaxis and sepsis Current suspected stage: ruled out Possible source: skin/soft tissue Blood cultures ordered: yes Antibiotic ordered: Yes Assessment & Plan Assessment Current Active Medications: Generic Name Dose Route Start Last Admin Trade Name Freq PRN Reason Stop Dose Admin Acetaminophen 650 mg 12/14/24 14:15 Acetaminophen 325 Mg Tablet PO 01/13/25 04:35 Q6HR PRN Fever >101.5 Acetaminophen 650 mg 12/14/24 14:15 Acetaminophen 325 Mg Tablet PO 01/13/25 04:35 Q6HR PRN PAIN SCALE 1-3 (mild Albuterol/Ipratropium 3 ml 12/14/24 04:06 Albuterol/Ipratropium (Duoneb) Rt Charisse 3 Ml Nebu INH 01/13/25 06:59 Q4HRRT PRN wheezing Apixaban 5 mg 12/14/24 09:00 12/17/24 10:02 Apixaban 2.5 Mg Tablet PO 01/04/25 08:59 5 mg BID DA Administration Ergocalciferol 0 ea 12/14/24 11:00 12/14/24 11:21 Capsule 1.25 Mg PO 01/13/25 10:59 1.25 capsule QWEEK DA Administration Folic Acid 1 mg 12/14/24 21:00 12/17/24 10:00 Folic Acid 1 Mg Tablet PO 12/19/24 20:59 1 mg BID DA Administration Furosemide 80 mg 12/15/24 09:45 12/17/24 10:01 Furosemide Inj 10 Mg/Ml 4ml Vial IVP 01/14/25 09:44 80 mg QDAY DA Administration Cefepime HCl 2 gm/ Sodium 50 mls @ 100 mls/hr 12/15/24 09:27 12/17/24 13:47 Chloride IV 12/22/24 09:26 100 mls/hr Q8HR DA Administration Albumin Human 25 gm in 100 mls @ 100 mls/hr 12/16/24 13:15 12/17/24 10:02 Albuminex 25% Ivpb IV 12/19/24 13:14 100 mls/hr QDAY@0900 DA Administration Albumin Human 25 gm in 100 mls @ 100 mls/hr 12/16/24 14:15 12/17/24 11:16 Albuminex 25% Ivpb IV 12/19/24 14:14 100 mls/hr QDAY@1000 DA Administration Albumin Human 25 gm in 100 mls @ 100 mls/hr 12/16/24 15:15 12/17/24 12:36 Albuminex 25% Ivpb IV 12/19/24 15:14 100 mls/hr QDAY@1100 DA Administration Levothyroxine Sodium 50 mcg 12/14/24 07:30 12/17/24 05:59 Levothyroxine Sodium 25 Mcg Tablet PO 01/13/25 07:29 50 mcg ACBR DA Administration Lidocaine 1 patch 12/14/24 04:02 Lidocaine 5% 1 Patch TOP QDAY PRN LOCALIZED PAIN Protocol Lorazepam 0.5 mg 12/14/24 11:57 Lorazepam 0.5 Mg Tablet PO 12/26/24 11:56 Q4HR PRN CIWA Score 2-6 Lorazepam 1 mg 12/14/24 11:57 12/17/24 16:53 Lorazepam 0.5 Mg Tablet PO 12/26/24 11:56 1 mg Q4HR PRN Administration CIWA SCORE 7-11 Lorazepam 2 mg 12/14/24 11:57 Lorazepam 0.5 Mg Tablet PO 12/26/24 11:56 Q4HR PRN CIWA SCORE 12-15 Midodrine 5 mg 12/16/24 11:13 12/17/24 13:47 Midodrine 5 Mg Tablet PO 01/14/25 13:59 Not Given TID DA Nicotine 14 mg 12/15/24 09:00 12/17/24 10:02 Nicotine Patch 14 Mg/24 Hr Patch.Td24 TOP 01/14/25 08:59 14 mg QDAY DA Administration Ondansetron HCl 4 mg 12/14/24 04:36 Ondansetron Inj 2 Mg/Ml Inj 2 Ml IVP 01/13/25 04:35 Q6H PRN NAUSEA OR VOMITING Protocol Pantoprazole Sodium 40 mg 12/14/24 09:00 12/17/24 10:00 Pantoprazole 40 Mg Tablet PO 01/13/25 08:59 40 mg DAILY DA Administration Pregabalin 100 mg 12/14/24 08:30 12/17/24 13:48 Pregabalin 25 Mg Capsule PO 01/13/25 08:29 100 mg TID DA Administration Spironolactone 25 mg 12/15/24 09:45 12/17/24 10:00 Spironolactone 25 Mg Tablet PO 01/14/25 09:44 25 mg BID DA Administration Thiamine HCl 100 mg 12/14/24 21:00 12/17/24 10:00 Thiamine 100 Mg Tablet PO 12/19/24 20:59 100 mg BID DA Administration Plan 64 years old female with PMH of alcoholic liver cirrhosis, unprovoked DVT on Eliquis (~1 year), chronic back pain, hypothyroidism, depression, osteoarthritis, alcohol use disorder presented to ED with worsening bilateral leg swelling and pain for 2wk. Also present were SOB and chest pain. She denies any fever, chills, palpitations, dizziness, urinary frequency, urinary urgency, burning micturition, nausea, vomiting, melena, recent trauma. Patient admitted for distributive shock 2/2 cellulitis, community acquired pneumonia, and UTI to ICU for shock (MAP <65) needing pressors (Levophed). WBC and Hgb remained stable. lower extremity CT did not show any gas in the tissue, only showed severe diffuse edema of BLE. Pt on cefepime and diuretics. Patient this morning was -1 L and her lower extremity edema seems to be improving. Patient was taken off vasopressors around 3 AM in the morning. If the patient receives proper diuresis patient can be titrated off midodrine. Patient will also require ambulatory O2 test to determine if patient needs home oxygen. Lactic acid continue to uptrend, but no signs of hypoperfusion at this time. Lactic acid could be secondary to congestion. Otherwise no other complaints. Assessment & Plan: #Cellulitis #Community-acquired pneumonia #UTI/Asymptomatic Pyuria #Septic shock, resolved #Lactic acidosis, no anion gap, improving DDx: Bilateral Lower Extremity cellulities Versus possible pneumonia with chest x-ray imaging showing early bibasilar pneumonia. Cellulitis does not appear to be adequate explanation for the shock, UTI -Patient has severe tenderness on lower extremities bilaterally with disproportionate tenderness on right upper thigh, surgery Dr. Zamudio was notified and did not have high concern for necrotizing fasciitis. ? Lactate initially at 8.[address] to 3.4 after 3 L of fluid given ? Chest x-ray shows early pneumonia left base ? On bedside ultrasound IVC not variable with respirations, was minimally dilated; RV and LV function appeared intact, obvious abnormalities with heart function.. ? Lower extremity CT showed no air in the tissue and only diffuse edema in the subcutaneous fatty tissues. ? LRINEC score of 3, low probability of nec fasciitis, does not rule out. ? Corrected anion gap at 15.3 with sodium, chloride, albumin taken into account ? Lactic acid initially at 8.5, after 3 L fluid decreased to 3.4. - DDx thiamine deficiency as patient has had chronic elevation of lactic acid vs due to congestion vs due to impaired hepatic clearance - B ctx were negative in both bottles after 48h Plan: - Continue cefepime (12/15-) - Wound care consulted ? Follow-up urine and sputum culture #Acute hypoxic respiratory failure due to community-acquired pneumonia #COPD DDx: Pneumonia, AGUSTIN due to obesity, history of COPD - history of COPD not on home oxygen, not on home oxygen ? VBG was favorable ? Chest x-ray shows early pneumonia left base Plan: -On cefepime ?Follow-up with sputum cultures ? On 2L nasal cannula ? CPAP at night - Continuing supplemental o2 with goal o2 88-92% - Will need LAMA on outpatient - DuoNebs every 4 hours as needed #Alcohol withdrawal ? Patient has a history of alcohol use disorder. Received 1mg of Ativan for CIWA score of 11 on 12/17. Plan: ? CIWA protocol with increasingly higher doses of Ativan for elevated CIWA scores. ?Thiamine and folic acid #Anasarca Patient has lower lower extremity swelling all the way up to the lower abdomen Last echo was on 05/2024 showed an EF of 60 to 65%. With diastolic grade 1 dysfunction. Echocardiogram 12/16 1. Left ventricle size is normal and systolic function is normal. Ejection fraction is 55 %. mild concentric hypertrophy noted. 2. Right ventricle chamber size is mildly enlarged and systolic function is normal. Estimated RVSP is 33 mmHg. Trace mitral and tricuspid valve regurgitation. ? by 12/17, patient has had a net gain of 2.57L in fluids. Plan: Will continue diurese with spironolactone 25 mg twice daily and Lasix 80 mg daily Keep midodrine 5 mg 3 times daily to achieve diuresis, but discontinue once proper diuresis achieved Albumin should help with diuresis Daily weights Fluid restrictions 1800 cc #Cirrhosis due to alcohol use disorder #Coagulopathy ? CT space AP showed hepatosplenomegaly, severe diffuse fatty infiltration throughout the liver ? T. bili of 1.7, AST 108, ALT 71 alk phos 231, albumin 2.0, improving ? PT 12.9 in setting of cirrhosis Plan: - Continue albumin, midodrine, spironolactone, and lasix ? Trend liver function tests ?Avoid hepatotoxic agents #Hypoalbuminemia Albumin 2 12/16 Could be related to malnutrition Could be contributing to patient's fluid overload status Consider Beri Berelieser in differentials Plan: Increased Albumin to 75g qday Ordered thiamine levels #History of DVT on Eliquis for about 1 year - Had an unprovoked DVT ~ 1 year ago, has been on eliquis ever since ? Venous Doppler showed no DVT Plan: - Continue Eliquis 5 mg po bid #Elevated QTc on EKG - EKG showed qtc of [address]-T changes. - Repeat EKG shows sinus rhythym with QTc 469 and marked left axis deviation. Rx: ?Keep mag above 2 and potassium above 4 ?Avoid QTc prolonging agents # Macrocytic anemia due to chronic alcohol use ?Hemoglobin 8.5 12/16 ? No signs or symptoms of bleeding Plan: ? Will continue to monitor for signs of bleeding, trend hemoglobin levels with daily labs #Hypertriglyceridemia Dx: Triglycerides 374, cholesterol 130, LDL 50, HDL less than 5. Rx: -Outpatient follow up to get under control #Hypothyroidism Dx: ? TSH 6.59, free T4 0.84 Rx: ? Levothyroxine 50 mcg p.o. ACBR #Hypokalemia, resolved Disposition: Med Tele, once patient receives proper diuresis, she may be titrated off midodrine.Patient will require home O2. DVT prophylaxis: Eliquis 5 mg twice daily GI prophylaxis: protonix 40 mg po daily Diet: regular diet, fluid restriction CODE STATUS: DNR This case was discussed with my attending physician, Dr. Koenig, and senior resident, Dr Guzmán. Rich Worley, DO PGY I Attending Provider Attestation/Addendum I have examined the patient, reviewed labs and imaging findings, discussed the case with the resident(s), and reviewed entered orders. I agree with the plan of care as outlined in this note, with these additional summaries/recommendations: Patient and patient's daughter seen at bedside. Patient reports overall feeling well but is endorsing generalized weakness today. She reports bilateral upper and lower extremity numbness/pain and will resume home duloxetine. Patient was downgraded from ICU yesterday for septic shock. Etiology for septic shock likely multifactorial secondary to lower extremity cellulitis, UTI, and community-acquired pneumonia. Blood cultures show no growth at 48 hours. Sputum culture pending. Urine culture was unfortunately not collected and little benefit at this time given patient has already received multiple days of IV antibiotics. Continue IV antibiotics and follow-up final culture results. Patient has a history of alcohol use and currently on CIWA although has not required. She has underlying hepatosplenomegaly with some evidence of synthetic liver dysfunction. Patient is significantly fluid overload and we will continue aggressive diuresis while continuing midodrine for soft blood pressure. Continue Eliquis for history of deep vein thrombosis. Avoid QTc prolonging agents. Lactic acidosis persist which is most likely type B from underlying liver disease. Patient and patient's daughter updated on the plan and agreement. All questions answered satisfaction. Please see residents note for additional details and management. Dr. Liberty MD
[2024-12-17] MEDS: DULoxetine HCL 30 MG CAPSULE 60 MG PO (18:07)
[2024-12-18] VITALS (17 sets, daily range): BP systolic 98–137; BP diastolic 60–82; PULSE 81–106; RESP 16–94; TEMP 36.2–37.7; O2SAT 92–97; BMI 47.0; BMI 46.9
[2024-12-18 05:42] LABS: Basophils # (Auto) 0.1 Thou/mm3 (0.0-0.2); Basophils % (Auto) 1 % (0-2.5); Eosinophils # (Auto) 0.1 Thou/mm3 (0.0-0.5); Eosinophils % (Auto) 3 % (0-10); Hematocrit 28.4 % (36.0-46.0); Immature Granulocytes Auto 0.07 Thou/mm3 (0.00-0.00); Lymphocytes # (Auto) 1.4 Thou/mm3 (1.0-4.8); Lymphocytes % (Auto) 28 % (10-50); Mean Corpuscular HGB Conc 28.9 g/dl (31.0-37.0); Mean Corpuscular Hemoglobin 31.4 pg (25.0-35.0); Mean Corpuscular Volume 109 fL (80-100); Monocytes # (Auto) 0.8 Thou/mm3 (0.0-0.8); Monocytes % (Auto) 16 % (0-12); Neutrophils # (Auto) 2.6 Thou/mm3 (1.8-7.7); Neutrophils % (Auto) 51 % (37-80); Nucleated Red Blood Cell # 0.00 Thou/mm3 (0.00-0.00); Nucleated Red Blood Cell % 0 /100 WBC (0); Platelet Count 153 Thou/mm3 (140-440); RDW Standard Deviation 82.0 fL (36.4-46.3); Red Blood Count 2.61 Miln/mm3 (4.00-5.20); White Blood Count 5.1 Thou/mm3 (3.6-11.0)
[2024-12-18 05:58] LABS: Hemoglobin 8.2 g/dL (12.0-16.0)
[2024-12-18] MEDS: LEVOTHYROXINE SODIUM 25 MCG TABLET 50 MCG PO (05:58)
[2024-12-18] MEDS: CEFEPIME INJ 2 GM in SODIUM CHLORIDE 0.9% (Popper) 50 ML IV (05:58)
[2024-12-18] MEDS: MIDODRINE 5 MG TABLET PO ×2 (05:58→21:36)
[2024-12-18] MEDS: PREGABALIN 25 MG CAPSULE 100 MG PO ×3 (05:59→21:35)
[2024-12-18 06:14] LABS: Alanine Aminotransferase 39 U/L (10-49); Albumin, Serum 3.3 gm/dL (3.4-4.8); Albumin/Globulin Ratio 1.6 (1.2-2.2); Alkaline Phosphatase 143 U/L (46-116); Anion Gap 9 (7-16); Aspartate Amino Transferase 76 U/L (0-34); BUN/Creatinine Ratio 11 Ratio (12-20); Bilirubin,Total 1.7 mg/dL (0.3-1.2); Blood Urea Nitrogen 8 mg/dL (9-23); Calcium 8.8 mg/dL (8.3-10.6); Calcium (Corrected) 9.4 mg/dL (8.5-10.1); Carbon Dioxide 29.0 mMol/L (20.0-31.0); Chloride 107 mMol/L (98-107); Creatinine (Component) 0.7 mg/dL (0.6-1.3); Estimated Creatinine Clearance 108.9 mL/min (>60); Globulin 2.1 gm/dL (2.3-3.5); Glucose 115 mg/dL (74-106); Magnesium 2.0 mg/dL (1.6-2.6); Osmolality,Calculated 288 (275-295); Potassium 3.6 mMol/L (3.4-5.1); Sodium 145 mMol/L (136-145); Total Protein 5.4 gm/dL (5.7-8.2); eGFR > 60 See Note
[2024-12-18] MEDS: DULoxetine HCL 30 MG CAPSULE 60 MG PO (09:49)
[2024-12-18] MEDS: ALBUMIN HUMAN-KJDA 25% IVPB 25 GM/100 ML BTL IV ×3 (09:49→12:06)
[2024-12-18] MEDS: SPIRONOLACTONE 25 MG TABLET PO ×2 (09:49→21:35)
[2024-12-18] MEDS: PANTOPRAZOLE 40 MG TABLET PO (09:50)
[2024-12-18] MEDS: APIXABAN 2.5 MG TABLET 5 MG PO ×2 (09:50→21:35)
[2024-12-18] MEDS: THIAMINE 100 MG TABLET PO ×2 (09:50→21:41)
[2024-12-18] MEDS: FOLIC ACID 1 MG TABLET PO ×2 (09:50→21:36)
[2024-12-18] MEDS: FUROSEMIDE INJ 10 MG/ML 4ML VIAL 80 MG IVP (09:50)
[2024-12-18] MEDS: NICOTINE PATCH 14 MG/24 HR PATCH.TD24 TOP (09:51)
[2024-12-18] MEDS: cefTRIAXone/D5w 2gm 2 GM/50 ML BAG IV (12:34)
--- NOTE | 2024-12-18 13:49 | PC.PT ---
Patient will be D/C from PT services 03/18 patient is back to her baseline as she can stand pivot transfer to the wheelchair from bed and back xI. RN made aware.
--- NOTE | 2024-12-18 17:46 | PD.RESPRO ---
Documentation for date of: 12/18/24 Subjective Subjective Interval history: Patient seen examined at bedside, complaints that she was not able to sleep well last night and was feeling anxious, BiPAP mask not fitting well. Reports that she sat at the edge of the bed today and is feeling much better otherwise. Continues to complain of pain in bilateral lower extremities, tender on palpation, 2+ edema noted as well. Will continue to diurese patient, Will de-escalate antibiotic therapy to ceftriaxone, cultures have been unremarkable. Duloxetine was resumed yesterday patient reports improved pain and anxiety. Will obtain cocci serology. Exam Vital Signs Temp Pulse Resp BP Pulse Ox O2 Del Method O2 Flow Rate 99.9 F 106 H 17 98/64 94 L Room Air 3 12/18/24 16:00 12/18/24 16:00 12/18/24 16:00 12/18/24 16:00 12/18/24 16:00 12/18/24 16:00 12/18/24 07:37 FiO2 30 12/18/24 01:21 Narrative Exam General: A/O x3, no acute distress, obese Eyes: PERRL, EOMI. Anicteric, vision grossly intact. Ears: No ear pain, no ear discharge, Hearing grossly intact. Nose: No nasal discharge. Mouth/Throat: Moist mucous membranes, no redness, no lesions. Neck: Neck supple, non-tender, no cervical lymphadenopathy. Lungs: Expiratory wheezing over Lt lower lobe, No accessory muscle use. Cardio: Normal S1/S2, regular rhythm, no murmurs, no JVD Abdomen: Soft, non-tender, no palpable masses, peristalsis present, no guarding or rebound. Extremities: Symmetrical, no significant deformities, 2+ peripheral edema upto lower abdomen, but lower extremities are softer and there is wrinkling on the feet, non-tender, peripheral pulses difficult to palpate due to swelling. Relative weakness and decreased sensation along RLE. Skin: No rashes, no lesions, warm to touch. Neuro: No focal neurological deficits. motor and sensory intact Psych: Cooperative, appropriate mood and effect. Objective Labs 12/19/24 05:29 12/19/24 05:29 Labs: Laboratory Results - last 24 hr 12/18/24 04:55 WBC 5.1 RBC 2.61 L Hgb 8.2 L Hct 28.4 L MCV 109 H MCH 31.4 MCHC 28.9 L RDW Std Deviation 82.0 H Plt Count 153 Neut % (Auto) 51 Lymph % (Auto) 28 [place] % (Auto) 16 H Eos % (Auto) 3 Baso % (Auto) 1 Neut # (Auto) 2.6 Lymph # (Auto) 1.4 [place] # (Auto) 0.8 Eos # (Auto) 0.1 Baso # (Auto) 0.1 Immature Gran # (Auto) 0.07 H Absolute Nucleated RBC 0.00 Immature Gran % 1 H Nucleated RBC % 0 Sodium 145 Potassium 3.6 Chloride 107 Carbon Dioxide 29.0 Anion Gap 9 BUN 8 L Creatinine 0.7 Estim Creat Clear Calc 108.9 eGFR > 60 BUN/Creatinine Ratio 11 L Glucose 115 H Calculated Osmolality 288 Calcium 8.8 Corrected Calcium 9.4 Magnesium 2.0 Total Bilirubin 1.7 H AST 76 H ALT 39 Alkaline Phosphatase 143 H D Total Protein 5.4 L Albumin 3.3 L D Globulin 2.1 L Albumin/Globulin Ratio 1.6 ABG Interpretation ABG results: 12/14/24 13:22 VBG pH 7.42 VBG pCO2 38 VBG pO2 120 H VBG Base Excess 0 Quality Measures Quality Measures VTE prophylaxis and sepsis Current suspected stage: ruled out Possible source: skin/soft tissue Blood cultures ordered: yes Antibiotic ordered: Yes Assessment & Plan Assessment Current Active Medications: Generic Name Dose Route Start Last Admin Trade Name Freq PRN Reason Stop Dose Admin Acetaminophen 650 mg 12/14/24 14:15 Acetaminophen 325 Mg Tablet PO 01/13/25 04:35 Q6HR PRN Fever >101.5 Acetaminophen 650 mg 12/14/24 14:15 Acetaminophen 325 Mg Tablet PO 01/13/25 04:35 Q6HR PRN PAIN SCALE 1-3 (mild Albuterol/Ipratropium 3 ml 12/14/24 04:06 Albuterol/Ipratropium (Duoneb) Rt Charisse 3 Ml Nebu INH 01/13/25 06:59 Q4HRRT PRN wheezing Apixaban 5 mg 12/14/24 09:00 12/18/24 09:50 Apixaban 2.5 Mg Tablet PO 01/04/25 08:59 5 mg BID DA Administration Ergocalciferol 0 ea 12/14/24 11:00 12/14/24 11:21 Capsule 1.25 Mg PO 01/13/25 10:59 1.25 capsule QWEEK DA Administration Duloxetine HCl 60 mg 12/17/24 18:00 12/18/24 09:49 Duloxetine Hcl 30 Mg Capsule PO 01/16/25 17:59 60 mg QDAY DA Administration Folic Acid 1 mg 12/14/24 21:00 12/18/24 09:50 Folic Acid 1 Mg Tablet PO 12/19/24 20:59 1 mg BID DA Administration Furosemide 80 mg 12/15/24 09:45 12/18/24 09:50 Furosemide Inj 10 Mg/Ml 4ml Vial IVP 01/14/25 09:44 80 mg QDAY DA Administration Albumin Human 25 gm in 100 mls @ 100 mls/hr 12/16/24 13:15 12/18/24 09:49 Albuminex 25% Ivpb IV 12/19/24 13:14 100 mls/hr QDAY@0900 DA Administration Albumin Human 25 gm in 100 mls @ 100 mls/hr 12/16/24 14:15 12/18/24 10:46 Albuminex 25% Ivpb IV 12/19/24 14:14 100 mls/hr QDAY@1000 DA Administration Albumin Human 25 gm in 100 mls @ 100 mls/hr 12/16/24 15:15 12/18/24 12:06 Albuminex 25% Ivpb IV 12/19/24 15:14 100 mls/hr QDAY@1100 DA Administration Ceftriaxone Sodium/Dextrose 2 gm in 50 mls @ 100 mls/hr 12/18/24 11:45 12/18/24 12:34 Rocephin/D5w 2gm IV 12/25/24 11:44 100 mls/hr QDAY DA Administration Levothyroxine Sodium 50 mcg 12/14/24 07:30 12/18/24 05:58 Levothyroxine Sodium 25 Mcg Tablet PO 01/13/25 07:29 50 mcg ACBR DA Administration Lidocaine 1 patch 12/14/24 04:02 Lidocaine 5% 1 Patch TOP QDAY PRN LOCALIZED PAIN Protocol Lorazepam 0.5 mg 12/14/24 11:57 12/18/24 13:34 Lorazepam 0.5 Mg Tablet PO 12/26/24 11:56 0.5 mg Q4HR PRN Administration CIWA Score 2-6 Lorazepam 1 mg 12/14/24 11:57 12/17/24 16:53 Lorazepam 0.5 Mg Tablet PO 12/26/24 11:56 1 mg Q4HR PRN Administration CIWA SCORE 7-11 Lorazepam 2 mg 12/14/24 11:57 Lorazepam 0.5 Mg Tablet PO 12/26/24 11:56 Q4HR PRN CIWA SCORE 12-15 Midodrine 5 mg 12/16/24 11:13 12/18/24 13:33 Midodrine 5 Mg Tablet PO 01/14/25 13:59 Not Given TID DA Nicotine 14 mg 12/15/24 09:00 12/18/24 09:51 Nicotine Patch 14 Mg/24 Hr Patch.Td24 TOP 01/14/25 08:59 14 mg QDAY DA Administration Ondansetron HCl 4 mg 12/14/24 04:36 Ondansetron Inj 2 Mg/Ml Inj 2 Ml IVP 01/13/25 04:35 Q6H PRN NAUSEA OR VOMITING Protocol Pantoprazole Sodium 40 mg 12/14/24 09:00 12/18/24 09:50 Pantoprazole 40 Mg Tablet PO 01/13/25 08:59 40 mg DAILY DA Administration Pregabalin 100 mg 12/14/24 08:30 12/18/24 13:34 Pregabalin 25 Mg Capsule PO 01/13/25 08:29 100 mg TID DA Administration Spironolactone 25 mg 12/15/24 09:45 12/18/24 09:49 Spironolactone 25 Mg Tablet PO 01/14/25 09:44 25 mg BID DA Administration Thiamine HCl 100 mg 12/14/24 21:00 12/18/24 09:50 Thiamine 100 Mg Tablet PO 12/19/24 20:59 100 mg BID DA Administration Plan 64 years old female with PMH of alcoholic liver cirrhosis, unprovoked DVT on Eliquis (~1 year), chronic back pain, hypothyroidism, depression, osteoarthritis, alcohol use disorder presented to ED with worsening bilateral leg swelling and pain for 2wk. Also present were SOB and chest pain. She denies any fever, chills, palpitations, dizziness, urinary frequency, urinary urgency, burning micturition, nausea, vomiting, melena, recent trauma. Patient admitted for distributive shock 2/2 cellulitis, community acquired pneumonia, and UTI to ICU for shock (MAP <65) needing pressors (Levophed). WBC and Hgb remained stable. lower extremity CT did not show any gas in the tissue, only showed severe diffuse edema of BLE. Pt on cefepime and diuretics. Patient this morning was -1 L and her lower extremity edema seems to be improving. Patient was taken off vasopressors around 3 AM in the morning. If the patient receives proper diuresis patient can be titrated off midodrine. Patient will also require ambulatory O2 test to determine if patient needs home oxygen. Lactic acid continue to uptrend, but no signs of hypoperfusion at this time. Lactic acid could be secondary to congestion. Otherwise no other complaints. Assessment & Plan: #?Cellulitis, RLE #Community-acquired pneumonia likely secondary to gram-positive versus gram-negative bacteria #UTI/Asymptomatic Pyuria #Septic shock, resolved #Lactic acidosis, no anion gap, improving DDx: Bilateral Lower Extremity cellulities Versus possible pneumonia with chest x-ray imaging showing early bibasilar pneumonia. Cellulitis does not appear to be adequate explanation for the shock, UTI -Patient has severe tenderness on lower extremities bilaterally with disproportionate tenderness on right upper thigh, surgery Dr. Zamudio was notified and did not have high concern for necrotizing fasciitis. ? Lactate initially at 8.[address] to 3.4 after 3 L of fluid given ? Chest x-ray shows early pneumonia left base ? On bedside ultrasound IVC not variable with respirations, was minimally dilated; RV and LV function appeared intact, obvious abnormalities with heart function.. ? Lower extremity CT showed no air in the tissue and only diffuse edema in the subcutaneous fatty tissues. ? LRINEC score of 3, low probability of nec fasciitis, does not rule out. ? Corrected anion gap at 15.3 with sodium, chloride, albumin taken into account ? Lactic acid initially at 8.5, after 3 L fluid decreased to 3.4. - DDx thiamine deficiency as patient has had chronic elevation of lactic acid vs due to congestion vs due to impaired hepatic clearance - B ctx were negative in both bottles after 48h -Patient received cefepime 12/15 - 12/18 Plan: - Continue ceftriaxone - Wound care consulted ?Urine culture and sputum culture and blood culture unremarkable #Anasarca Patient has lower lower extremity swelling all the way up to the lower abdomen Last echo was on 05/2024 showed an EF of 60 to 65%. With diastolic grade 1 dysfunction. Echocardiogram 12/16 1. Left ventricle size is normal and systolic function is normal. Ejection fraction is 55 %. mild concentric hypertrophy noted. 2. Right ventricle chamber size is mildly enlarged and systolic function is normal. Estimated RVSP is 33 mmHg. Trace mitral and tricuspid valve regurgitation. ? by 12/17, patient has had a net gain of 2.57L in fluids. Plan: Will continue diurese with spironolactone 25 mg twice daily and Lasix 80 mg daily Keep midodrine 5 mg 3 times daily to achieve diuresis, but discontinue once proper diuresis achieved Albumin should help with diuresis Daily weights Fluid restrictions 1800 cc #Acute hypoxic respiratory failure due to community-acquired pneumonia #COPD DDx: Pneumonia, AGUSTIN due to obesity, history of COPD - history of COPD not on home oxygen, not on home oxygen ? VBG was favorable ? Chest x-ray shows early pneumonia left base Plan: -Continue ceftriaxone ?Sputum culture unremarkable ? On 2L nasal cannula ? CPAP at night, will discharge on [facility] comp field case manager informed - Continuing supplemental o2 with goal o2 88-92% - Will need LAMA on outpatient - DuoNebs every 4 hours as needed #Alcohol withdrawal ? Patient has a history of alcohol use disorder. Received 1mg of Ativan for CIWA score of 11 on 12/17. Plan: ? CIWA protocol with increasingly higher doses of Ativan for elevated CIWA scores. ? Thiamine and folic acid #Cirrhosis due to alcohol use disorder #Coagulopathy ? CT space AP showed hepatosplenomegaly, severe diffuse fatty infiltration throughout the liver ? T. bili of 1.7, AST 108, ALT 71 alk phos 231, albumin 2.0, improving ? PT 12.9 in setting of cirrhosis Plan: - Continue albumin, midodrine, spironolactone, and lasix ? Trend liver function tests ?Avoid hepatotoxic agents #Hypoalbuminemia Albumin 2 12/16 Could be related to malnutrition Could be contributing to patient's fluid overload status Consider Grecia Rehmani in differentials Plan: Increased Albumin to 75g qday Ordered thiamine levels #History of DVT on Eliquis for about 1 year - Had an unprovoked DVT ~ 1 year ago, has been on eliquis ever since ? Venous Doppler showed no DVT Plan: - Continue Eliquis 5 mg po bid #Elevated QTc on EKG - EKG showed qtc of [address]-T changes. - Repeat EKG shows sinus rhythym with QTc 469 and marked left axis deviation. Rx: ?Keep mag above 2 and potassium above 4 ?Avoid QTc prolonging agents # Macrocytic anemia due to chronic alcohol use ?Hemoglobin 8.5 12/16 ? No signs or symptoms of bleeding Plan: ? Will continue to monitor for signs of bleeding, trend hemoglobin levels with daily labs #Hypertriglyceridemia Dx: Triglycerides 374, cholesterol 130, LDL 50, HDL less than 5. Rx: -Outpatient follow up to get under control #Hypothyroidism Dx: ? TSH 6.59, free T4 0.84 Rx: ? Levothyroxine 50 mcg p.o. ACBR #Hypokalemia, resolved Disposition: Med Tele, continue diuresis, will need to be discharged on CPAP/trilogy DVT prophylaxis: Eliquis 5 mg twice daily GI prophylaxis: protonix 40 mg po daily Diet: regular diet, fluid restriction CODE STATUS: DNR This case was discussed with my attending physician, Dr. Mary Ann uGzmán MD PGY-2 Internal medicine Attending Provider Attestation/Addendum I have discussed and was present for the essential components of the history, physical examination, diagnosis, and treatment plan with the resident. I agree with the patient's care as documented by the resident and amended herein by me. Rangel Reese DO. Although this document has been carefully reviewed, there may still be some phonetic and other typographical errors. These errors are purely grammatical due to imperfections in the software program and should not be construed in any way to compromise the substance of the patient's medical care during this visit.
[2024-12-19] VITALS (18 sets, daily range): BP systolic 104–127; BP diastolic 58–86; PULSE 89–108; RESP 15–97; TEMP 36.3–37.1; O2SAT 92–98
[2024-12-19 05:54] LABS: Basophils # (Auto) 0.1 Thou/mm3 (0.0-0.2); Basophils % (Auto) 1 % (0-2.5); Eosinophils # (Auto) 0.2 Thou/mm3 (0.0-0.5); Eosinophils % (Auto) 3 % (0-10); Hematocrit 29.4 % (36.0-46.0); Immature Granulocytes Auto 0.06 Thou/mm3 (0.00-0.00); Lymphocytes # (Auto) 1.4 Thou/mm3 (1.0-4.8); Lymphocytes % (Auto) 25 % (10-50); Mean Corpuscular HGB Conc 29.3 g/dl (31.0-37.0); Mean Corpuscular Hemoglobin 32.0 pg (25.0-35.0); Mean Corpuscular Volume 109 fL (80-100); Monocytes # (Auto) 0.9 Thou/mm3 (0.0-0.8); Monocytes % (Auto) 16 % (0-12); Neutrophils # (Auto) 3.1 Thou/mm3 (1.8-7.7); Neutrophils % (Auto) 54 % (37-80); Nucleated Red Blood Cell # 0.00 Thou/mm3 (0.00-0.00); Nucleated Red Blood Cell % 0 /100 WBC (0); Platelet Count 163 Thou/mm3 (140-440); RDW Standard Deviation 79.6 fL (36.4-46.3); Red Blood Count 2.69 Miln/mm3 (4.00-5.20); White Blood Count 5.7 Thou/mm3 (3.6-11.0)
[2024-12-19] MEDS: PREGABALIN 25 MG CAPSULE 100 MG PO ×3 (06:14→21:29)
[2024-12-19] MEDS: LEVOTHYROXINE SODIUM 25 MCG TABLET 50 MCG PO (06:14)
[2024-12-19 06:16] LABS: Alanine Aminotransferase 34 U/L (10-49); Albumin, Serum 3.6 gm/dL (3.4-4.8); Albumin/Globulin Ratio 1.7 (1.2-2.2); Alkaline Phosphatase 129 U/L (46-116); Anion Gap 8 (7-16); Aspartate Amino Transferase 67 U/L (0-34); BUN/Creatinine Ratio 10 Ratio (12-20); Bilirubin,Total 1.6 mg/dL (0.3-1.2); Blood Urea Nitrogen 6 mg/dL (9-23); Calcium 9.1 mg/dL (8.3-10.6); Calcium (Corrected) 9.4 mg/dL (8.5-10.1); Carbon Dioxide 30.9 mMol/L (20.0-31.0); Chloride 106 mMol/L (98-107); Creatinine (Component) 0.6 mg/dL (0.6-1.3); Estimated Creatinine Clearance 126.9 mL/min (>60); Globulin 2.1 gm/dL (2.3-3.5); Glucose 104 mg/dL (74-106); Magnesium 1.4 mg/dL (1.6-2.6); Osmolality,Calculated 286 (275-295); Potassium 3.4 mMol/L (3.4-5.1); Sodium 145 mMol/L (136-145); Total Protein 5.7 gm/dL (5.7-8.2); eGFR > 60 See Note
[2024-12-19 06:44] LABS: Hemoglobin 8.6 g/dL (12.0-16.0)
[2024-12-19] MEDS: FUROSEMIDE INJ 10 MG/ML 4ML VIAL 80 MG IVP (09:01)
[2024-12-19] MEDS: NICOTINE PATCH 14 MG/24 HR PATCH.TD24 TOP (09:03)
[2024-12-19] MEDS: DULoxetine HCL 30 MG CAPSULE 60 MG PO (09:03)
[2024-12-19] MEDS: PANTOPRAZOLE 40 MG TABLET PO (09:03)
[2024-12-19] MEDS: THIAMINE 100 MG TABLET PO (09:03)
[2024-12-19] MEDS: SPIRONOLACTONE 25 MG TABLET PO ×2 (09:03→21:29)
[2024-12-19] MEDS: APIXABAN 2.5 MG TABLET 5 MG PO ×2 (09:04→21:28)
[2024-12-19] MEDS: ALBUMIN HUMAN-KJDA 25% IVPB 25 GM/100 ML BTL IV ×3 (09:04→11:07)
[2024-12-19] MEDS: FOLIC ACID 1 MG TABLET PO (09:04)
[2024-12-19] MEDS: cefTRIAXone/D5w 2gm 2 GM/50 ML BAG IV (09:37)
[2024-12-19] MEDS: Magnesium Sulfate 4 GM Ivpb 4 GM/50 ML BAG IV (10:00)
--- NOTE | 2024-12-19 10:09 | PC.SS ---
SS has sent DME order for Trilogy Machine using [facility].
--- NOTE | 2024-12-19 10:46 | PC.SS ---
SS has faxed DME order for Trilogy Machine to [employer]. SS has met with bedside nurse, Cami who is aware pt is requiring O2 testing for home O2 and pt will dc home today.
--- NOTE | 2024-12-19 11:22 | PC.NURSE ---
Pt resting on 2L NC with o2 sats at 94%. Pt o2 dropped to 81% on room air with small amount of movement.
[2024-12-19 11:52] LABS: Cocci Serology, IgM Negative (Negative)
--- NOTE | 2024-12-19 12:08 | PC.SS ---
SS has faxed DME order for home O2 to [facility] [place].
[2024-12-19] MEDS: MIDODRINE 5 MG TABLET PO ×2 (14:40→21:28)
--- NOTE | 2024-12-19 15:06 | ESPR_ITS ---
<Statement entered by Moiz Guzmán MD - 12/20/24 16:23> Patient was seen and examined at bedside. I agree on the assessment and plan on this note as documented by resident Rich Worley DO PGY1. 64-year-old female with past medical history as below, continues to have bilateral lower extremity edema, will continue with IV diuresis, antibiotic therapy was de-escalated to ceftriaxone, patient responding well, will continue. Will obtain cocci serology otherwise patient is stable, needs BiPAP at night, will order Trelegy. hot worker in the process of obtaining the required apparatus. Case discussed with attending Dr. Nitin Hilario MD PGY-2 Documentation for date of: 12/19/24 Subjective Subjective Interval history: Patient was seen and examined at bedside. No acute events took place overnight. Continues to complain of pain in bilateral lower extremities, tender on palpation, 2+ edema noted as well. Admits to ongoing shortness of breath but denies chest pain. Patient able to generate BM and urinate. Exam Vital Signs Temp Pulse Resp BP Pulse Ox O2 Del Method O2 Flow Rate 97.3 F 105 H 19 104/58 L 95 Nasal Cannula 2 12/19/24 12:00 12/19/24 14:40 12/19/24 12:00 12/19/24 14:40 12/19/24 12:00 12/19/24 12:00 12/19/24 12:00 FiO2 30 12/19/24 00:05 Narrative Exam General: A/O x3, no acute distress, obese Eyes: PERRL, EOMI. Anicteric, vision grossly intact. Ears: No ear pain, no ear discharge, Hearing grossly intact. Nose: No nasal discharge. Mouth/Throat: Moist mucous membranes, no redness, no lesions. Neck: Neck supple, non-tender, no cervical lymphadenopathy. Lungs: Expiratory wheezing over Lt lower lobe, No accessory muscle use. Cardio: Normal S1/S2, regular rhythm, no murmurs, no JVD Abdomen: Soft, non-tender, no palpable masses, peristalsis present, no guarding or rebound. Extremities: Symmetrical, no significant deformities, 2+ peripheral edema upto lower abdomen, but lower extremities are softer and there is wrinkling on the feet, non-tender, peripheral pulses difficult to palpate due to swelling. Relative weakness and decreased sensation along RLE. Skin: No rashes, no lesions, warm to touch. Neuro: No focal neurological deficits. motor and sensory intact Psych: Cooperative, appropriate mood and effect. Objective Labs 12/19/24 05:29 12/19/24 05:29 Labs: Laboratory Results - last 24 hr 12/18/24 12/19/24 11:59 05:29 WBC 5.7 RBC 2.69 L Hgb 8.6 L Hct 29.4 L MCV 109 H MCH 32.0 MCHC 29.3 L RDW Std Deviation 79.6 H Plt Count 163 Neut % (Auto) 54 Lymph % (Auto) 25 Weber % (Auto) 16 H Eos % (Auto) 3 Baso % (Auto) 1 Neut # (Auto) 3.1 Lymph # (Auto) 1.4 Weber # (Auto) 0.9 H Eos # (Auto) 0.2 Baso # (Auto) 0.1 Immature Gran # (Auto) 0.06 H Absolute Nucleated RBC 0.00 Immature Gran % 1 H Nucleated RBC % 0 Sodium 145 Potassium 3.4 Chloride 106 Carbon Dioxide 30.9 Anion Gap 8 BUN 6 L Creatinine 0.6 Estim Creat Clear Calc 126.9 eGFR > 60 BUN/Creatinine Ratio 10 L Glucose 104 Calculated Osmolality 286 Calcium 9.1 Corrected Calcium 9.4 Magnesium 1.4 L Total Bilirubin 1.6 H AST 67 H ALT 34 Alkaline Phosphatase 129 H Total Protein 5.7 Albumin 3.6 Globulin 2.1 L Albumin/Globulin Ratio 1.7 Coccidioides IgM Ab Negative ABG Interpretation ABG results: 12/14/24 13:22 VBG pH 7.42 VBG pCO2 38 VBG pO2 120 H VBG Base Excess 0 Quality Measures Quality Measures VTE prophylaxis and sepsis Current suspected stage: ruled out Possible source: skin/soft tissue Blood cultures ordered: yes Antibiotic ordered: Yes Assessment & Plan Assessment Current Active Medications: Generic Name Dose Route Start Last Admin Trade Name Freq PRN Reason Stop Dose Admin Acetaminophen 650 mg 12/14/24 14:15 Acetaminophen 325 Mg Tablet PO 01/13/25 04:35 Q6HR PRN Fever >101.5 Acetaminophen 650 mg 12/14/24 14:15 Acetaminophen 325 Mg Tablet PO 01/13/25 04:35 Q6HR PRN PAIN SCALE 1-3 (mild Albuterol/Ipratropium 3 ml 12/14/24 04:06 Albuterol/Ipratropium (Duoneb) Rt Charisse 3 Ml Nebu INH 01/13/25 06:59 Q4HRRT PRN wheezing Apixaban 5 mg 12/14/24 09:00 12/19/24 09:04 Apixaban 2.5 Mg Tablet PO 01/04/25 08:59 5 mg BID DA Administration Ergocalciferol 0 ea 12/14/24 11:00 12/14/24 11:21 Capsule 1.25 Mg PO 01/13/25 10:59 1.25 capsule QWEEK DA Administration Duloxetine HCl 60 mg 12/17/24 18:00 12/19/24 09:03 Duloxetine Hcl 30 Mg Capsule PO 01/16/25 17:59 60 mg QDAY DA Administration Folic Acid 1 mg 12/14/24 21:00 12/19/24 09:04 Folic Acid 1 Mg Tablet PO 12/19/24 20:59 1 mg BID DA Administration Furosemide 80 mg 12/15/24 09:45 12/19/24 09:01 Furosemide Inj 10 Mg/Ml 4ml Vial IVP 01/14/25 09:44 80 mg QDAY DA Administration Albumin Human 25 gm in 100 mls @ 100 mls/hr 12/16/24 15:15 12/19/24 11:07 Albuminex 25% Ivpb IV 12/19/24 15:14 100 mls/hr QDAY@1100 DA Administration Ceftriaxone Sodium/Dextrose 2 gm in 50 mls @ 100 mls/hr 12/18/24 11:45 12/19/24 09:37 Rocephin/D5w 2gm IV 12/25/24 11:44 100 mls/hr QDAY DA Administration Levothyroxine Sodium 50 mcg 12/14/24 07:30 12/19/24 06:14 Levothyroxine Sodium 25 Mcg Tablet PO 01/13/25 07:29 50 mcg ACBR DA Administration Lidocaine 1 patch 12/14/24 04:02 Lidocaine 5% 1 Patch TOP QDAY PRN LOCALIZED PAIN Protocol Lorazepam 0.5 mg 12/14/24 11:57 12/19/24 09:12 Lorazepam 0.5 Mg Tablet PO 12/26/24 11:56 0.5 mg Q4HR PRN Administration CIWA Score 2-6 Lorazepam 1 mg 12/14/24 11:57 12/17/24 16:53 Lorazepam 0.5 Mg Tablet PO 12/26/24 11:56 1 mg Q4HR PRN Administration CIWA SCORE 7-11 Lorazepam 2 mg 12/14/24 11:57 Lorazepam 0.5 Mg Tablet PO 12/26/24 11:56 Q4HR PRN CIWA SCORE 12-15 Midodrine 5 mg 12/16/24 11:13 12/19/24 14:40 Midodrine 5 Mg Tablet PO 01/14/25 13:59 5 mg TID DA Administration Nicotine 14 mg 12/15/24 09:00 12/19/24 09:03 Nicotine Patch 14 Mg/24 Hr Patch.Td24 TOP 01/14/25 08:59 14 mg QDAY DA Administration Ondansetron HCl 4 mg 12/14/24 04:36 Ondansetron Inj 2 Mg/Ml Inj 2 Ml IVP 01/13/25 04:35 Q6H PRN NAUSEA OR VOMITING Protocol Pantoprazole Sodium 40 mg 12/14/24 09:00 12/19/24 09:03 Pantoprazole 40 Mg Tablet PO 01/13/25 08:59 40 mg DAILY DA Administration Potassium Chloride 20 meq 12/19/24 17:30 Potassium Chloride 20 Meq Tabcr PO 01/18/25 17:29 BIDWM DA Pregabalin 100 mg 12/14/24 08:30 12/19/24 14:40 Pregabalin 25 Mg Capsule PO 01/13/25 08:29 100 mg TID DA Administration Spironolactone 25 mg 12/15/24 09:45 12/19/24 09:03 Spironolactone 25 Mg Tablet PO 01/14/25 09:44 25 mg BID DA Administration Thiamine HCl 100 mg 12/14/24 21:00 12/19/24 09:03 Thiamine 100 Mg Tablet PO 12/19/24 20:59 100 mg BID DA Administration Plan 64 years old female with PMH of alcoholic liver cirrhosis, unprovoked DVT on Eliquis (~1 year), chronic back pain, hypothyroidism, depression, osteoarthritis, alcohol use disorder presented to ED with worsening bilateral leg swelling and pain for 2wk. Also present were SOB and chest pain. She denies any fever, chills, palpitations, dizziness, urinary frequency, urinary urgency, burning micturition, nausea, vomiting, melena, recent trauma. Patient admitted for distributive shock 2/2 cellulitis, community acquired pneumonia, and UTI to ICU for shock (MAP <65) needing pressors (Levophed). WBC and Hgb remained stable. lower extremity CT did not show any gas in the tissue, only showed severe diffuse edema of BLE. Pt on cefepime and diuretics. Patient this morning was -1 L and her lower extremity edema seems to be improving. Patient was taken off vasopressors around 3 AM in the morning. If the patient receives proper diuresis patient can be titrated off midodrine. Patient will also require ambulatory O2 test to determine if patient needs home oxygen. Lactic acid continue to uptrend, but no signs of hypoperfusion at this time. Lactic acid could be secondary to congestion. Otherwise no other complaints. Will obtain cocci serology. Assessment & Plan: #Cellulitis #Community-acquired pneumonia #UTI/Asymptomatic Pyuria #Septic shock, resolved #Lactic acidosis, no anion gap, improving DDx: Bilateral Lower Extremity cellulities Versus possible pneumonia with chest x-ray imaging showing early bibasilar pneumonia. Cellulitis does not appear to be adequate explanation for the shock, UTI -Patient has severe tenderness on lower extremities bilaterally with disproportionate tenderness on right upper thigh, surgery Dr. Zamudio was notified and did not have high concern for necrotizing fasciitis. ? Lactate initially at 8.[address] to 3.4 after 3 L of fluid given ? Chest x-ray shows early pneumonia left base ? On bedside ultrasound IVC not variable with respirations, was minimally dilated; RV and LV function appeared intact, obvious abnormalities with heart function.. ? Lower extremity CT showed no air in the tissue and only diffuse edema in the subcutaneous fatty tissues. ? LRINEC score of 3, low probability of nec fasciitis, does not rule out. ? Corrected anion gap at 15.3 with sodium, chloride, albumin taken into account ? Lactic acid initially at 8.5, after 3 L fluid decreased to 3.4. - DDx thiamine deficiency as patient has had chronic elevation of lactic acid vs due to congestion vs due to impaired hepatic clearance - B ctx were negative in both bottles after 48h - Patient received cefepime 12/15 - 12/18 - Coccidiodes IgM AB negative Plan: - Started on ceftriaxone 2g (12/18 - ) - Wound care consulted ? Urine culture and sputum culture and blood culture unremarkable #Anasarca possibly secondary to fluid administration in setting of septic shock Patient has lower lower extremity swelling all the way up to the lower abdomen Last echo was on 05/2024 showed an EF of 60 to 65%. With diastolic grade 1 dysfunction. Echocardiogram 12/16 1. Left ventricle size is normal and systolic function is normal. Ejection fraction is 55 %. mild concentric hypertrophy noted. 2. Right ventricle chamber size is mildly enlarged and systolic function is normal. Estimated RVSP is 33 mmHg. Trace mitral and tricuspid valve regurgitation. ? by 12/17, patient has had a net gain of 2.57L in fluids. Plan: Will continue diurese with spironolactone 25 mg twice daily and Lasix 80 mg daily Keep midodrine 5 mg 3 times daily to achieve diuresis, but discontinue once proper diuresis achieved Albumin should help with diuresis Daily weights Fluid restrictions 1800 cc #Acute hypoxic respiratory failure due to community-acquired pneumonia #COPD DDx: Pneumonia, AGUSTIN due to obesity, history of COPD - history of COPD not on home oxygen, not on home oxygen ? VBG was favorable ? Chest x-ray shows early pneumonia left base Plan: -Continue ceftriaxone ?Sputum culture unremarkable ? On 2L nasal cannula ? CPAP at night, will discharge on [facility] case folder informed - Continuing supplemental o2 with goal o2 88-92% - Will need LAMA on outpatient - DuoNebs every 4 hours as needed #Anxiety - Duloxetine PO 60mg home dose resumed. #Alcohol withdrawal ? Patient has a history of alcohol use disorder. Received 1mg of Ativan for CIWA score of 11 on 12/17. Plan: ? CIWA protocol with increasingly higher doses of Ativan for elevated CIWA scores. ? Thiamine and folic acid #Cirrhosis due to alcohol use disorder #Coagulopathy ? CT space AP showed hepatosplenomegaly, severe diffuse fatty infiltration throughout the liver ? T. bili of 1.7, AST 108, ALT 71 alk phos 231, albumin 2.0, improving ? PT 12.9 in setting of cirrhosis Plan: - Continue albumin, midodrine, spironolactone, and lasix ? Trend liver function tests ?Avoid hepatotoxic agents #Hypoalbuminemia Albumin 2 12/16 Could be related to malnutrition Could be contributing to patient's fluid overload status Consider Beri Beri in differentials Plan: Increased Albumin to 75g qday Ordered thiamine levels #History of DVT on Eliquis for about 1 year - Had an unprovoked DVT ~ 1 year ago, has been on eliquis ever since ? Venous Doppler showed no DVT Plan: - Continue Eliquis 5 mg po bid #Elevated QTc on EKG - EKG showed qtc of [address]-T changes. - Repeat EKG shows sinus rhythym with QTc 469 and marked left axis deviation. Rx: ?Keep mag above 2 and potassium above 4 ?Avoid QTc prolonging agents # Macrocytic anemia due to chronic alcohol use ?Hemoglobin 8.5 12/16 ? No signs or symptoms of bleeding Plan: ? Will continue to monitor for signs of bleeding, trend hemoglobin levels with daily labs #Hypertriglyceridemia Dx: Triglycerides 374, cholesterol 130, LDL 50, HDL less than 5. Rx: -Outpatient follow up to get under control #Hypothyroidism Dx: ? TSH 6.59, free T4 0.84 Rx: ? Levothyroxine 50 mcg p.o. ACBR #Hypokalemia, resolved Disposition: Med Tele, continue diuresis, will need to be discharged on CPAP/trilogy DVT prophylaxis: Eliquis 5 mg twice daily GI prophylaxis: protonix 40 mg po daily Diet: regular diet, fluid restriction CODE STATUS: DNR This case was discussed with my attending physician, Dr. Reese, and senior resident, Dr Guzmán. Rich Worley DO PGY I Attending Provider Attestation/Addendum I have discussed and was present for the essential components of the history, physical examination, diagnosis, and treatment plan with the resident. I agree with the patient's care as documented by the resident and amended herein by me. Rangel Reese DO. Although this document has been carefully reviewed, there may still be some phonetic and other typographical errors. These errors are purely grammatical due to imperfections in the software program and should not be construed in any way to compromise the substance of the patient's medical care during this visit.
[2024-12-20] VITALS (17 sets, daily range): BP systolic 91–121; BP diastolic 62–71; PULSE 84–100; RESP 14–24; TEMP 36.1–36.5; O2SAT 91–98; BMI 46.0
[2024-12-20] MEDS: LEVOTHYROXINE SODIUM 25 MCG TABLET 50 MCG PO (06:17)
[2024-12-20] MEDS: PREGABALIN 25 MG CAPSULE 100 MG PO ×3 (06:17→21:46)
[2024-12-20] MEDS: MIDODRINE 5 MG TABLET PO ×3 (06:17→21:46)
[2024-12-20 06:33] LABS: Basophils # (Auto) 0.1 Thou/mm3 (0.0-0.2); Basophils % (Auto) 2 % (0-2.5); Eosinophils # (Auto) 0.2 Thou/mm3 (0.0-0.5); Eosinophils % (Auto) 2 % (0-10); Hematocrit 27.6 % (36.0-46.0); Immature Granulocytes Auto 0.08 Thou/mm3 (0.00-0.00); Lymphocytes # (Auto) 1.5 Thou/mm3 (1.0-4.8); Lymphocytes % (Auto) 23 % (10-50); Mean Corpuscular HGB Conc 29.3 g/dl (31.0-37.0); Mean Corpuscular Hemoglobin 32.0 pg (25.0-35.0); Mean Corpuscular Volume 109 fL (80-100); Monocytes # (Auto) 1.1 Thou/mm3 (0.0-0.8); Monocytes % (Auto) 17 % (0-12); Neutrophils # (Auto) 3.6 Thou/mm3 (1.8-7.7); Neutrophils % (Auto) 55 % (37-80); Nucleated Red Blood Cell # 0.00 Thou/mm3 (0.00-0.00); Nucleated Red Blood Cell % 0 /100 WBC (0); Platelet Count 178 Thou/mm3 (140-440); RDW Standard Deviation 79.2 fL (36.4-46.3); Red Blood Count 2.53 Miln/mm3 (4.00-5.20); White Blood Count 6.6 Thou/mm3 (3.6-11.0)
[2024-12-20 06:47] LABS: Hemoglobin 8.1 g/dL (12.0-16.0)
[2024-12-20 07:03] LABS: Alanine Aminotransferase 26 U/L (10-49); Albumin, Serum 3.4 gm/dL (3.4-4.8); Albumin/Globulin Ratio 1.5 (1.2-2.2); Alkaline Phosphatase 103 U/L (46-116); Anion Gap 7 (7-16); Aspartate Amino Transferase 59 U/L (0-34); BUN/Creatinine Ratio 10 Ratio (12-20); Bilirubin,Total 1.4 mg/dL (0.3-1.2); Blood Urea Nitrogen 6 mg/dL (9-23); Calcium 9.0 mg/dL (8.3-10.6); Calcium (Corrected) 9.5 mg/dL (8.5-10.1); Carbon Dioxide 32.6 mMol/L (20.0-31.0); Chloride 106 mMol/L (98-107); Creatinine (Component) 0.6 mg/dL (0.6-1.3); Estimated Creatinine Clearance 125.4 mL/min (>60); Globulin 2.2 gm/dL (2.3-3.5); Glucose 125 mg/dL (74-106); Magnesium 1.5 mg/dL (1.6-2.6); Osmolality,Calculated 289 (275-295); Phosphorous 2.0 mg/dL (2.4-5.1); Potassium 3.3 mMol/L (3.4-5.1); Sodium 146 mMol/L (136-145); Total Protein 5.6 gm/dL (5.7-8.2); eGFR > 60 See Note
[2024-12-20] MEDS: cefTRIAXone/D5w 2gm 2 GM/50 ML BAG IV (08:32)
[2024-12-20] MEDS: APIXABAN 2.5 MG TABLET 5 MG PO ×2 (08:32→21:46)
[2024-12-20] MEDS: PANTOPRAZOLE 40 MG TABLET PO (08:33)
[2024-12-20] MEDS: SPIRONOLACTONE 25 MG TABLET PO ×2 (08:33→21:46)
[2024-12-20] MEDS: NICOTINE PATCH 14 MG/24 HR PATCH.TD24 TOP (08:33)
[2024-12-20] MEDS: DULoxetine HCL 30 MG CAPSULE 60 MG PO (08:34)
[2024-12-20] MEDS: FUROSEMIDE INJ 10 MG/ML 4ML VIAL 80 MG IVP (08:34)
[2024-12-20] MEDS: POT PHOS 15 mMol in NS 250 ML 15 MMOL/250 ML BAG 62.5 MMOL IV ×2 (09:06→12:26)
[2024-12-20] MEDS: Magnesium Sulfate 4 GM Ivpb 4 GM/50 ML BAG IV (09:07)
--- NOTE | 2024-12-20 09:32 | PC.SS ---
Addendum entered by Caitlin Angulo 12/20/24 09:41: SS also faxed updated/new settings for Bipap to [facility] [employer] [facility] (while on the phone with [facility]) and confirmed fax# for respiratory department. Original Note: SS contacted [facility] [employer] and spoke to Gardenia who is aware DME orders for Trilogy Machine was faxed yesterday at 10:46 (Bipap settings were included) and home O2 order was faxed yesterday at 12:07 and both were successful sent. Per Gardenia, DME order for home )2 was not received but Trilogy Machine order is being processed. [facility]ia is aware pt is ready for d/c and is requiring O2 concentrator and O2 tank to be delivered to hospital (bedside). provided [facility] with [facility] address and patient's room # for delivery. Per Gardenia, she will contact the team to deliver home O2. also provided Gardenia from [facility] [employer] [facility] with patient's dtr, Anna and Babs's phone numbers to arrange deliver of Trilogy Machine.
--- NOTE | 2024-12-20 11:35 | ESPR_ITS ---
<Statement entered by Bertram Brock MD - 12/21/24 16:24> Patient seen and examined at bedside. I discussed and supervised with the resident intern physician who took care of this patient. I personally saw and examined the patient. I agree with most of the assessment and plan. Plan of care discussed with attending Dr. Reese. Bertram Brock MD PGY-2 Documentation for date of: 12/20/24 Subjective Subjective Interval history: Patient was seen and examined at bedside. No acute events took place overnight. Continues to complain of pain in bilateral lower extremities, swelling, 1+ bilateral edema, redness, pain and tender on palpation, Admits to ongoing shortness of breath but denies chest pain. Patient able to generate BM and urinate. Denies dysuria. Patient awaiting provision of Trelegy BiPAP. VSS unremarkable O2 92% on 2 L via NC CBC remarkable for Hgb 8.1 K+ 3.3 (IV 40+ p.o. 20 twice daily), CO2 32.6, Mg 1.5 (R) 2.9 L of urine output, and thousand 750 mL loss in balance Urine speciated staph haemolyticus Exam Vital Signs Temp Pulse Resp BP Pulse Ox O2 Del Method O2 Flow Rate 97.4 F 94 16 97/71 18 L Nasal Cannula 2 12/20/24 08:00 12/20/24 08:34 12/20/24 04:00 12/20/24 08:34 12/20/24 08:00 12/20/24 04:00 12/20/24 04:00 FiO2 30 12/20/24 04:00 Narrative Exam General: A/O x3, no acute distress, obese Eyes: PERRL, EOMI. Anicteric, vision grossly intact. Ears: No ear pain, no ear discharge, Hearing grossly intact. Nose: No nasal discharge. Mouth/Throat: Moist mucous membranes, no redness, no lesions. Neck: Neck supple, non-tender, no cervical lymphadenopathy. Lungs: Prolonged expiratory phase. expiratory wheezing over Lt lower lobe, No accessory muscle use. Cardio: Normal S1/S2, regular rhythm, no murmurs, no JVD Abdomen: Soft, non-tender, no palpable masses, peristalsis present, no guarding or rebound. Extremities: Symmetrical, no significant deformities, 2+ peripheral edema upto lower abdomen, but lower extremities are softer and there is wrinkling on the feet, non-tender, peripheral pulses difficult to palpate due to swelling. Relative weakness and decreased sensation along RLE. Skin: No rashes, no lesions, warm to touch. Neuro: No focal neurological deficits. motor and sensory intact Psych: Cooperative, appropriate mood and effect. Objective Labs 12/21/24 05:11 12/21/24 05:11 Labs: Laboratory Results - last 24 hr 12/18/24 12/20/24 11:59 04:50 WBC 6.6 RBC 2.53 L Hgb 8.1 L Hct 27.6 L MCV 109 H MCH 32.0 MCHC 29.3 L RDW Std Deviation 79.2 H Plt Count 178 Neut % (Auto) 55 Lymph % (Auto) 23 Blackford % (Auto) 17 H Eos % (Auto) 2 Baso % (Auto) 2 Neut # (Auto) 3.6 Lymph # (Auto) 1.5 Blackford # (Auto) 1.1 H Eos # (Auto) 0.2 Baso # (Auto) 0.1 Immature Gran # (Auto) 0.08 H Absolute Nucleated RBC 0.00 Immature Gran % 1 H Nucleated RBC % 0 Sodium 146 H Potassium 3.3 L Chloride 106 Carbon Dioxide 32.6 H Anion Gap 7 BUN 6 L Creatinine 0.6 Estim Creat Clear Calc 125.4 eGFR > 60 BUN/Creatinine Ratio 10 L Glucose 125 H Calculated Osmolality 289 Calcium 9.0 Corrected Calcium 9.5 Phosphorus 2.0 L Magnesium 1.5 L Total Bilirubin 1.4 H AST 59 H ALT 26 Alkaline Phosphatase 103 D Total Protein 5.6 L Albumin 3.4 Globulin 2.2 L Albumin/Globulin Ratio 1.5 Coccidioides IgM Ab Negative ABG Interpretation ABG results: 12/14/24 13:22 VBG pH 7.42 VBG pCO2 38 VBG pO2 120 H VBG Base Excess 0 Quality Measures Quality Measures VTE prophylaxis and sepsis Current suspected stage: ruled out Possible source: skin/soft tissue Blood cultures ordered: yes Antibiotic ordered: Yes Assessment & Plan Assessment Current Active Medications: Generic Name Dose Route Start Last Admin Trade Name Freq PRN Reason Stop Dose Admin Acetaminophen 650 mg 12/14/24 14:15 Acetaminophen 325 Mg Tablet PO 01/13/25 04:35 Q6HR PRN Fever >101.5 Acetaminophen 650 mg 12/14/24 14:15 Acetaminophen 325 Mg Tablet PO 01/13/25 04:35 Q6HR PRN PAIN SCALE 1-3 (mild Albuterol/Ipratropium 3 ml 12/14/24 04:06 Albuterol/Ipratropium (Duoneb) Rt Charisse 3 Ml Nebu INH 01/13/25 06:59 Q4HRRT PRN wheezing Apixaban 5 mg 12/14/24 09:00 12/20/24 08:32 Apixaban 2.5 Mg Tablet PO 01/04/25 08:59 5 mg BID DA Administration Cephalexin HCl 500 mg 12/20/24 12:00 Cephalexin 250 Mg Capsule PO 12/27/24 11:59 QID DA Ergocalciferol 0 ea 12/14/24 11:00 12/14/24 11:21 Capsule 1.25 Mg PO 01/13/25 10:59 1.25 capsule QWEEK DA Administration Duloxetine HCl 60 mg 12/17/24 18:00 12/20/24 08:34 Duloxetine Hcl 30 Mg Capsule PO 01/16/25 17:59 60 mg QDAY DA Administration Furosemide 40 mg 12/20/24 14:00 Furosemide Inj 10 Mg/Ml 4ml Vial IVP 01/19/25 13:59 TID DA Ceftriaxone Sodium/Dextrose 2 gm in 50 mls @ 100 mls/hr 12/18/24 11:45 12/20/24 08:32 Rocephin/D5w 2gm IV 12/25/24 11:44 100 mls/hr On Hold: 12/20/24 11:34 QDAY DA Administration Magnesium Sulfate 4 gm in 50 mls @ 12.5 mls/hr 12/20/24 08:09 12/20/24 09:07 Magnesium Sulfate Ivpb IV 12/20/24 12:08 12.5 mls/hr X1 ONE Administration Potassium Phosphate 15 mmol in 250 mls @ 62.5 mls/hr 12/20/24 08:29 12/20/24 09:06 Pot Phos 15 Mmol In Ns 250 Ml IV 12/20/24 16:28 62.5 mls/hr Q4H DA Administration Levothyroxine Sodium 50 mcg 12/14/24 07:30 12/20/24 06:17 Levothyroxine Sodium 25 Mcg Tablet PO 01/13/25 07:29 50 mcg ACBR DA Administration Lidocaine 1 patch 12/14/24 04:02 Lidocaine 5% 1 Patch TOP QDAY PRN LOCALIZED PAIN Protocol Lorazepam 0.5 mg 12/14/24 11:57 12/19/24 09:12 Lorazepam 0.5 Mg Tablet PO 12/26/24 11:56 0.5 mg Q4HR PRN Administration CIWA Score 2-6 Lorazepam 1 mg 12/14/24 11:57 12/17/24 16:53 Lorazepam 0.5 Mg Tablet PO 12/26/24 11:56 1 mg Q4HR PRN Administration CIWA SCORE 7-11 Lorazepam 2 mg 12/14/24 11:57 Lorazepam 0.5 Mg Tablet PO 12/26/24 11:56 Q4HR PRN CIWA SCORE 12-15 Midodrine 5 mg 12/16/24 11:13 12/20/24 06:17 Midodrine 5 Mg Tablet PO 01/14/25 13:59 5 mg TID DA Administration Nicotine 14 mg 12/15/24 09:00 12/20/24 08:33 Nicotine Patch 14 Mg/24 Hr Patch.Td24 TOP 01/14/25 08:59 14 mg QDAY DA Administration Ondansetron HCl 4 mg 12/14/24 04:36 Ondansetron Inj 2 Mg/Ml Inj 2 Ml IVP 01/13/25 04:35 Q6H PRN NAUSEA OR VOMITING Protocol Pantoprazole Sodium 40 mg 12/14/24 09:00 12/20/24 08:33 Pantoprazole 40 Mg Tablet PO 01/13/25 08:59 40 mg DAILY DA Administration Potassium Chloride 20 meq 12/19/24 17:30 12/20/24 08:33 Potassium Chloride 20 Meq Tabcr PO 01/18/25 17:29 20 meq BIDWM DA Administration Pregabalin 100 mg 12/14/24 08:30 12/20/24 06:17 Pregabalin 25 Mg Capsule PO 01/13/25 08:29 100 mg TID DA Administration Spironolactone 25 mg 12/15/24 09:45 12/20/24 08:33 Spironolactone 25 Mg Tablet PO 01/14/25 09:44 25 mg BID DA Administration Plan 64 years old female with PMH of alcoholic liver cirrhosis, unprovoked DVT on Eliquis (~1 year), chronic back pain, hypothyroidism, depression, osteoarthritis, alcohol use disorder presented to ED with worsening bilateral leg swelling and pain for 2wk. Also present were SOB and chest pain. She denies any fever, chills, palpitations, dizziness, urinary frequency, urinary urgency, burning micturition, nausea, vomiting, melena, recent trauma. Patient admitted for distributive shock 2/2 cellulitis, community acquired pneumonia, and UTI to ICU for shock (MAP <65) needing pressors (Levophed). WBC and Hgb remained stable. lower extremity CT did not show any gas in the tissue, only showed severe diffuse edema of BLE. Pt on cefepime and diuretics. Patient this morning was -1 L and her lower extremity edema seems to be improving. Patient was taken off vasopressors around 3 AM in the morning. If the patient receives proper diuresis patient can be titrated off midodrine. Patient will also require ambulatory O2 test to determine if patient needs home oxygen. Lactic acid continue to uptrend, but no signs of hypoperfusion at this time. Lactic acid could be secondary to congestion. Otherwise no other complaints. 12/20: patient awaiting provision of trilogy BiPAP machine for discharge to home. Although patient not complaining of urinary symptoms, urine culture grew Staph haemolyticus. Choice of antibiotics changed to Keflex PO 500 mg 4 times daily. Escalated diuresis to Lasix IV 4 mg 3 times daily. CIWA 0-1 throughout the past 24h Assessment & Plan: #Cellulitis #Community-acquired pneumonia #UTI/Asymptomatic Pyuria #Septic shock, resolved #Lactic acidosis, no anion gap, improving DDx: Bilateral Lower Extremity cellulities Versus possible pneumonia with chest x-ray imaging showing early bibasilar pneumonia. Cellulitis does not appear to be adequate explanation for the shock, UTI -Patient has severe tenderness on lower extremities bilaterally with disproportionate tenderness on right upper thigh, surgery Dr. Zamudio was notified and did not have high concern for necrotizing fasciitis. ? Lactate initially at 8.[address] to 3.4 after 3 L of fluid given ? Chest x-ray shows early pneumonia left base ? On bedside ultrasound IVC not variable with respirations, was minimally dilated; RV and LV function appeared intact, obvious abnormalities with heart function.. ? Lower extremity CT showed no air in the tissue and only diffuse edema in the subcutaneous fatty tissues. ? LRINEC score of 3, low probability of nec fasciitis, does not rule out. ? Corrected anion gap at 15.3 with sodium, chloride, albumin taken into account ? Lactic acid initially at 8.5, after 3 L fluid decreased to 3.4. - DDx thiamine deficiency as patient has had chronic elevation of lactic acid vs due to congestion vs due to impaired hepatic clearance - B ctx were negative in both bottles after 48h - Patient received cefepime 12/15 - 12/18 and CTX 12/19 - Coccidiodes IgM AB negative Plan: - Switched ABx to Keflex PO 500mg QID - Wound care consulted ? Urine culture and sputum culture and blood culture unremarkable #Anasarca possibly secondary to fluid administration in setting of septic shock Patient has lower lower extremity swelling all the way up to the lower abdomen Last echo was on 05/2024 showed an EF of 60 to 65%. With diastolic grade 1 dysfunction. Echocardiogram 12/16 1. Left ventricle size is normal and systolic function is normal. Ejection fraction is 55 %. mild concentric hypertrophy noted. 2. Right ventricle chamber size is mildly enlarged and systolic function is normal. Estimated RVSP is 33 mmHg. Trace mitral and tricuspid valve regurgitation. ? by 12/17, patient has had a net gain of 2.57L in fluids. Plan: Will continue diurese with spironolactone 25 mg twice daily and Lasix 40mg TID Keep midodrine 5 mg 3 times daily to achieve diuresis, but discontinue once proper diuresis achieved Albumin should help with diuresis Daily weights Fluid restrictions 1800 cc #Acute hypoxic respiratory failure due to community-acquired pneumonia, resolved #COPD DDx: Pneumonia, AGUSTIN due to obesity, history of COPD - history of COPD not on home oxygen, not on home oxygen ? VBG was favorable ? Chest x-ray shows early pneumonia left base - Treated with 4-day course of cefepime and 1 day of ceftriaxone. Plan: ?Sputum culture unremarkable ? On 2L nasal cannula ? CPAP at night, will discharge on Trelegy director of casework department informed - Continuing supplemental o2 with goal o2 88-92% - Will need LAMA on outpatient - DuoNebs every 4 hours as needed #Anxiety - Duloxetine PO 60mg home dose resumed. #Cirrhosis due to alcohol use disorder #Coagulopathy ? CT space AP showed hepatosplenomegaly, severe diffuse fatty infiltration throughout the liver ? T. bili of 1.7, AST 108, ALT 71 alk phos 231, albumin 2.0, improving ? PT 12.9 in setting of cirrhosis Plan: - Continue albumin, midodrine, spironolactone, and lasix ? Trend liver function tests ?Avoid hepatotoxic agents #History of DVT on Eliquis for about 1 year - Had an unprovoked DVT ~ 1 year ago, has been on eliquis ever since ? Venous Doppler showed no DVT Plan: - Continue Eliquis 5 mg po bid #Elevated QTc on EKG - EKG showed qtc of [address]-T changes. - Repeat EKG shows sinus rhythym with QTc 469 and marked left axis deviation. Rx: ?Keep mag above 2 and potassium above 4 ?Avoid QTc prolonging agents # Macrocytic anemia due to chronic alcohol use ?Hemoglobin 8.5 12/16 ? No signs or symptoms of bleeding Plan: ? Will continue to monitor for signs of bleeding, trend hemoglobin levels with daily labs #Hypertriglyceridemia Dx: Triglycerides 374, cholesterol 130, LDL 50, HDL less than 5. Rx: -Outpatient follow up to get under control #Hypothyroidism Dx: ? TSH 6.59, free T4 0.84 Rx: ? Levothyroxine 50 mcg p.o. ACBR #Hypokalemia, resolved #Hypoalbuminemia, resolved #Alcohol withdrawal, resolved Disposition: Med Tele, continue diuresis, will need to be discharged on CPAP/trilogy DVT prophylaxis: Eliquis 5 mg twice daily GI prophylaxis: protonix 40 mg po daily Diet: regular diet, fluid restriction CODE STATUS: DNR This case was discussed with my attending physician, Dr. Reese, and senior resident, Dr Guzmán. Rich Worley DO PGY I Attending Provider Attestation/Addendum I have discussed and was present for the essential components of the history, physical examination, diagnosis, and treatment plan with the resident. I agree with the patient's care as documented by the resident and amended herein by me. Rangel Reese DO. Although this document has been carefully reviewed, there may still be some phonetic and other typographical errors. These errors are purely grammatical due to imperfections in the software program and should not be construed in any way to compromise the substance of the patient's medical care during this visit.
[2024-12-20] MEDS: FUROSEMIDE INJ 10 MG/ML 4ML VIAL 40 MG IVP ×2 (13:46→21:46)
[2024-12-21] VITALS (11 sets, daily range): BP systolic 92–127; BP diastolic 53–66; PULSE 85–105; RESP 15–20; TEMP 36.1–36.4; O2SAT 90–98; BMI 45.2
[2024-12-21 06:07] LABS: Basophils # (Auto) 0.1 Thou/mm3 (0.0-0.2); Basophils % (Auto) 1 % (0-2.5); Eosinophils # (Auto) 0.2 Thou/mm3 (0.0-0.5); Eosinophils % (Auto) 2 % (0-10); Hematocrit 29.0 % (36.0-46.0); Immature Granulocytes Auto 0.09 Thou/mm3 (0.00-0.00); Lymphocytes # (Auto) 2.2 Thou/mm3 (1.0-4.8); Lymphocytes % (Auto) 28 % (10-50); Mean Corpuscular HGB Conc 29.0 g/dl (31.0-37.0); Mean Corpuscular Hemoglobin 31.7 pg (25.0-35.0); Mean Corpuscular Volume 109 fL (80-100); Monocytes # (Auto) 1.1 Thou/mm3 (0.0-0.8); Monocytes % (Auto) 14 % (0-12); Neutrophils # (Auto) 4.1 Thou/mm3 (1.8-7.7); Neutrophils % (Auto) 53 % (37-80); Nucleated Red Blood Cell # 0.00 Thou/mm3 (0.00-0.00); Nucleated Red Blood Cell % 0 /100 WBC (0); Platelet Count 192 Thou/mm3 (140-440); RDW Standard Deviation 78.2 fL (36.4-46.3); Red Blood Count 2.65 Miln/mm3 (4.00-5.20); White Blood Count 7.8 Thou/mm3 (3.6-11.0)
[2024-12-21 06:10] LABS: Hemoglobin 8.4 g/dL (12.0-16.0)
[2024-12-21] MEDS: PREGABALIN 25 MG CAPSULE 100 MG PO ×2 (06:13→13:23)
[2024-12-21] MEDS: FUROSEMIDE INJ 10 MG/ML 4ML VIAL 40 MG IVP ×2 (06:13→13:24)
[2024-12-21] MEDS: LEVOTHYROXINE SODIUM 25 MCG TABLET 50 MCG PO (06:14)
[2024-12-21] MEDS: MIDODRINE 5 MG TABLET PO ×2 (06:14→13:25)
[2024-12-21 06:27] LABS: Alanine Aminotransferase 24 U/L (10-49); Albumin, Serum 3.5 gm/dL (3.4-4.8); Albumin/Globulin Ratio 1.7 (1.2-2.2); Alkaline Phosphatase 109 U/L (46-116); Anion Gap 8 (7-16); Aspartate Amino Transferase 61 U/L (0-34); BUN/Creatinine Ratio 11 Ratio (12-20); Bilirubin,Total 1.3 mg/dL (0.3-1.2); Blood Urea Nitrogen 9 mg/dL (9-23); Calcium 8.9 mg/dL (8.3-10.6); Calcium (Corrected) 9.3 mg/dL (8.5-10.1); Carbon Dioxide 34.4 mMol/L (20.0-31.0); Chloride 103 mMol/L (98-107); Creatinine (Component) 0.8 mg/dL (0.6-1.3); Estimated Creatinine Clearance 93.1 mL/min (>60); Globulin 2.1 gm/dL (2.3-3.5); Glucose 97 mg/dL (74-106); Magnesium 1.6 mg/dL (1.6-2.6); Osmolality,Calculated 287 (275-295); Phosphorous 2.9 mg/dL (2.4-5.1); Potassium 4.2 mMol/L (3.4-5.1); Sodium 145 mMol/L (136-145); Total Protein 5.6 gm/dL (5.7-8.2); eGFR > 60 See Note
--- NOTE | 2024-12-21 08:11 | PC.SS ---
Late note 12-20-24: SS received call from Sonia tamez dealer compliance representative from [employer] who requested SS fax# for Trilogy order. Trilogy order requires physician signature. SS also informed Sonia pt is still waiting for home O2 and is unable to d/c without home O2. Per Sonia, O2 concentrator and tank will be delivered to bedside and estimated time is 5:30-7:30pm.
[2024-12-21] MEDS: DULoxetine HCL 30 MG CAPSULE 60 MG PO (08:47)
[2024-12-21] MEDS: APIXABAN 2.5 MG TABLET 5 MG PO (08:48)
[2024-12-21] MEDS: NICOTINE PATCH 14 MG/24 HR PATCH.TD24 TOP (08:48)
[2024-12-21] MEDS: PANTOPRAZOLE 40 MG TABLET PO (08:48)
[2024-12-21] MEDS: SPIRONOLACTONE 25 MG TABLET PO (08:48)
--- NOTE | 2024-12-21 09:05 | PC.SS ---
Follow up note: Pt received home O2, small O2 tank and O2 concentrator at bedside from [employer].
[2024-12-21 12:57] LABS: Cocci Serology, IgG Negative (Negative)
--- NOTE | 2024-12-21 13:27 | PC.SS ---
Addendum entered by Caitlin Angulo 12/21/24 13:55: SS has faxed DME order for humidifier bottle for O2 concentrator to [employer]. Original Note: SS followed up with Greg from [employer] who is aware SS is still waiting for Trilogy prescription form to be faxed for physician signature. Per Greg, Trilogy is still being processes. MD is aware. SS has provided caregiver with [employer]'s phone#.
--- NOTE | 2024-12-21 18:38 | ESDS_ITS ---
<Statement entered by Bertram Brock MD - 12/22/24 07:11> Patient seen and examined at bedside. I discussed and supervised with the internal corrosion specialist physician who took care of this patient. I personally saw and examined the patient. I agree with most of the assessment and plan. Plan of care discussed with attending Dr. Reese. Bertram Brock MD PGY-2 Planned Discharge Date 12/21/24 DS: Providers Provider Date of admission: 12/14/24 04:31 Primary care physician: Physician No Primary/Family Admitting Provider: Rylie Romero MD Attending Provider on Admission: Nitin Reese DO Consults: 12/14/24 07:52 Referral Physical Therapy Routine Comment: Physician Instructions: 12/14/24 10:29 Referral Wound Care Routine Comment: 12/14/24 15:20 Consult to General Surgery Routine Comment: Concern for nec fasc. 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 Also present were SOB and chest pain. Patient admitted for distributive shock 2/2 cellulitis, community acquired pneumonia, and UTI to ICU for shock (MAP <65) needing pressors (Levophed). WBC and Hgb remained stable. lower extremity CT did not show any gas in the tissue, only showed severe diffuse edema of BLE. Pt on cefepime and diuretics. Patient was -1 L in balance of fluid VICKY and her lower extremity edema improved. Patient was taken off vasopressors, and downgraded to floors to continue diuresis for fluid overload status. LA elevated 3.8 chronically 2/2 congestion. To facilitate diuresis, patient received albumen daily, and, in combination with midodrine, spirinolactone, and Lasix was treated for her underlying liver cirrhosis. Patient stayed on daily diurestics, and Lasix was risen to 40mg TID with close monitoring of her renal panel. Her cumulative balance of fluid VICKY for her stay by the end of her hospital course was -2 L. Her LE edema improved to 1+ b/l. Erythema, warmth, tenderness in BLE improved remarkably. Patient did not voice urinary sxs, however as UA was positive for bacteria and leuk esterase, U ctx obtained showed growth of Staph haemolyticus. Pt remained urinary sxs free, and grew 10-20 x10^3 colonies suspicous for contamination. She completed course of cefepime for 5 days, followed by 2 days of ceftriaxone, before her ABx was switched one last time to Keflex 500mg QID the day before discharge to complete 10 day course of ABx. As patient was on BiPAP overnights, order for home trilogy BiPAP machine was placed which the patient will receive shortly after discharge home. Until then patient is safe to use home O2. Although patient not complaining of urinary symptoms, urine culture grew . Choice of antibiotics changed to Keflex PO 500 mg 4 times daily. Escalated diuresis to Lasix IV 4 mg 3 times daily. CIWA 0-1 throughout the the past 48h. At the time of discharge, patient is medically stable and deemed safe to return to his/her previous state of living. Admission Diagnoses: #Cellulitis #Community-acquired pneumonia #UTI/asymptomatic pyuria #Lactic acidosis #Anasarca #Acute hypoxic respiratory failure due to CAP #COPD #Anxiety #Cirrhosis #Coagulopathy #History of DVT #Elevated QTc #Microcytic anemia #Hypercoagulable #Hypothyroidism Discharge Instructions: You have been started on the following medications: - Keflex 500 mg 4 times daily for 3 days to be completed 12/24. Please continue taking all other medications as previously prescribed. Please follow up with your primary doctor in 7-10 days. Please return to ED if you develop new or worsening symptoms. [facility] phone number: [phone] for home Oxygen and Trilogy This case was discussed with my attending physician, Dr. Reese, and senior resident, Dr Brock. Rich Worley DO PGY I Time Spent with Patient Time attestation: Total time spent providing and/or coordinating discharge services: More than 50% of the patient's total hospital stay Time spent: Greater than 30 minutes Exam Vital Signs Temp Pulse Resp BP Pulse Ox O2 Del Method O2 Flow Rate 97.0 F 100 16 108/58 L 94 L Nasal Cannula 2 12/21/24 16:00 12/21/24 16:00 12/21/24 16:00 12/21/24 16:00 12/21/24 16:00 12/21/24 16:00 12/21/24 16:00 FiO2 30 12/21/24 08:00 Narrative Exam General: A/O x3, no acute distress, obese Eyes: PERRL, EOMI. Anicteric, vision grossly intact. Ears: No ear pain, no ear discharge, Hearing grossly intact. Nose: No nasal discharge. Mouth/Throat: Moist mucous membranes, no redness, no lesions. Neck: Neck supple, non-tender, no cervical lymphadenopathy. Lungs: Prolonged expiratory phase, lungs clear, No accessory muscle use. Cardio: Normal S1/S2, regular rhythm, no murmurs, no JVD Abdomen: Soft, non-tender, no palpable masses, peristalsis present, no guarding or rebound. Extremities: Symmetrical, no significant deformities, 1+ peripheral edema upto knees, but lower extremities are softer and there is wrinkling on the feet, non- tender, peripheral pulses difficult to palpate due to swelling. Relative weakness and decreased sensation along RLE. Skin: No rashes, no lesions, warm to touch. Neuro: No focal neurological deficits. motor and sensory intact Psych: Cooperative, appropriate mood and effect. Discharge Plan Plan Patient Disposition: HOME (Self Care) Patient condition on transfer: Stable Care Plan Goals: You have been started on the following medications: - Keflex 500 mg 4 times daily for 3 days to be completed 12/24. Please continue taking all other medications as previously prescribed. Please follow up with your primary doctor in 7-10 days. Please return to ED if you develop new or worsening symptoms. [facility] phone number: [phone] for home Oxygen and Trilogy Prescriptions/Referrals Prescriptions/Med Rec: New cephalexin 500 mg capsule 500 mg PO QID 3 Days Qty: 12 0RF Continued thiamine HCl (vitamin B1) 100 mg tablet 100 mg PO QDAY Qty: 30 1RF spironolactone 50 mg tablet 50 mg PO QAM Qty: 30 3RF levothyroxine 50 mcg capsule 50 mcg PO AC Qty: 60 2RF duloxetine 60 mg capsule,delayed release(DR/EC) 60 mg PO DAILY Qty: 30 2RF furosemide 40 mg tablet 40 mg PO BID Qty: 60 2RF lidocaine [AsperFlex (lidocaine)] 4 % adhesive patch,medicated 1 patch topical QDAY PRN (Reason: pain) Qty: 10 0RF Wegovy 0.5 mg/0.5 mL pen injector 0.5 mg subcut QWEEK Qty: 2 0RF Rx Instructions: administer weeks 5 through 8 of therapy pregabalin 100 mg capsule 100 mg PO TID Qty: 90 0RF Eliquis 5 mg tablet 5 mg PO BID Qty: 60 0RF ergocalciferol (vitamin D2) 1,250 mcg (50,000 unit) capsule 1,250 mcg PO QWEEK pantoprazole 40 mg tablet,delayed release (DR/EC) 40 mg PO DAILY Discontinued tramadol 50 mg tablet 50 mg PO Q8H MDD 150 mg PRN (Reason: pain) Qty: 14 0RF Wegovy 0.25 mg/0.5 mL pen injector 0.25 mg subcut QWEEK Qty: 2 0RF Rx Instructions: administer weeks 1 through 4 of therapy hydrocodone-acetaminophen 5-325 mg tablet 1 tab PO Q8H MDD 15 PRN (Reason: pain) Qty: 14 0RF Rx Instructions: Take 1 tablet as needed for pain every 8th hrly hydrocodone-acetaminophen 5-325 mg tablet 1 tab PO BID MDD 2 tablets PRN (Reason: pain) Qty: 14 0RF meloxicam 7.5 mg tablet 15 mg PO QDAY Referrals: No Primary/Family,Physician [Primary Care Provider] Patient/Caregiver Discharge Instructions Education Materials: Alcohol Withdrawal: What to Expect, CPAP, Discharge Instructions for Cellulitis, Using an Oxygen Tank at Home Print Language: Maori Stand Alone Forms: Cami Award Info., Patient Portal Info Letter Discharge Order Discharge Orders: Discharge (Routine); Ordered 12/21/24 Ordered By: Gevik Haghverdian Quality Discharge Quality Measures VTE prophylaxis MD Attestestation MD Attestation I have discussed and was present for the essential components of the discharge history, physical examination, diagnosis, and discharge treatment plan with the resident. I agree with the patient's discharge care as documented by the yaai kip and amended herein by me. Rangel Reese DO. The patient understood all discharge instructions, all questions were answered satisfactorily. The patient was instructed to return to the Emergency Department is symptoms worsened or persisted.Patient was stable, afebrile, tolerating p.o. intake at time of discharge home Although this document has been carefully reviewed, there may still be some phonetic and other typographical errors. These errors are purely grammatical due to imperfections in the software program and should not be construed in any way to compromise the substance of the patient's medical care during this visit.
[2024-12-24 06:38] LABS: Vitamin B1 (Thiamine)* 116 nmol/L (8-30)
--- NOTE | 2024-12-25 10:06 | PC.SS ---
Addendum entered by Caitlin Angulo 12/25/24 11:23: SS received prescription form from [employer] [facility] for [employer]. SS has spoken to [facility] [facility] who explained she is unable to fill out prescription form. SS has sent prescription form for [employer] to [facility] with physician's signature and bipap setting. Original Note: SS received call from Sonia from [employer] (Alerts) who is aware SS still has not received Bipap DME from from them for physician's signature and SS also provided them with SS fax#.
== END 2024-12-21 18:10 | disposition home or self-care (01) | DRG 383 ==
LOC: SERX 22:17 → SERHOLD 12-14 05:02 → S2SX 12-16 18:05 → S3SX 12-17 07:21 → S2SX 12-17 09:17 → SERHOLD 12-17 09:17 → S3SX 12-17 09:18 → S2SX 12-17 09:18
PROVIDERS: Internal Medicine; Student in an Organized Health Care Education/Training Program; Admitting Provider Student in an Organized Health Care Education/Training Program; Emergency Provider Emergency Medicine; Visit Provider Student in an Organized Health Care Education/Training Program
DX: L03.115 Cellulitis of right lower limb (principal); E03.9 Hypothyroidism, unspecified; Z68.43 Body mass index [BMI] 50.0-59.9, adult; L03.116 Cellulitis of left lower limb; I95.9 Hypotension, unspecified; R07.89 Other chest pain; E87.6 Hypokalemia; E87.1 Hypo-osmolality and hyponatremia; K70.30 Alcoholic cirrhosis of liver without ascites; D50.9 Iron deficiency anemia, unspecified; F17.200 Nicotine dependence, unspecified, uncomplicated; F17.210 Nicotine dependence, cigarettes, uncomplicated; R65.21 Severe sepsis with septic shock; R57.8 Other shock; E66.2 Morbid (severe) obesity with alveolar hypoventilation; F10.139 Alcohol abuse with withdrawal, unspecified; F15.90 Other stimulant use, unspecified, uncomplicated; J96.01 Acute respiratory failure with hypoxia; F41.9 Anxiety disorder, unspecified; J18.9 Pneumonia, unspecified organism; K57.30 Diverticulosis of large intestine without perforation or abscess without bleeding; N39.0 Urinary tract infection, site not specified; E78.1 Pure hyperglyceridemia; J44.0 Chronic obstructive pulmonary disease with (acute) lower respiratory infection; E88.09 Other disorders of plasma-protein metabolism, not elsewhere classified; Z86.718 Personal history of other venous thrombosis and embolism; Z79.01 Long term (current) use of anticoagulants; Z79.899 Other long term (current) drug therapy; D68.9 Coagulation defect, unspecified; E87.20 Acidosis, unspecified; D53.9 Nutritional anemia, unspecified; Z88.0 Allergy status to penicillin; Z87.892 Personal history of anaphylaxis; G89.29 Other chronic pain; Z66 Do not resuscitate; Z98.84 Bariatric surgery status; M54.9 Dorsalgia, unspecified
CPT/HCPCS: 36415; 71045; 73701; 74176; 76705; 80048; 80053; 80061; 80069; 80202; 81001; 82140; 82803; 83036; 83605; 83735; 83880; 84100; 84425; 84439; 84443; 84484; 85025; 85610; 86140; 86331; 86635; 87040; 87077; 87081; 87086; 87186; 87205; 89220; 93005; 93225; 93306; 93970; 94660; 96361; 96365; 96366; 97162; 99285; A4649; J0692; J0696; J1938; J2185; J3373; J3475; J3480; J3490; J7030; J7050; J7120; J7999; P9045; P9047; Q9967; S0077; 94640; A9270; J0737; P0947

== ENCOUNTER → 2025-01-30 | Outpatient (CLI) | payer MEDICAID, SELFPAY | END | disposition home or self-care (01) | PROVIDERS: PCP Nurse Practitioner Family; Referring Provider Nurse Practitioner Family; Visit Provider Student in an Organized Health Care Education/Training Program | DX: E11.621 Type 2 diabetes mellitus with foot ulcer (principal); L97.522 Non-pressure chronic ulcer of other part of left foot with fat layer exposed; J44.9 Chronic obstructive pulmonary disease, unspecified; D64.9 Anemia, unspecified; Z72.0 Tobacco use; I10 Essential (primary) hypertension; F10.20 Alcohol dependence, uncomplicated; R60.0 Localized edema; K74.60 Unspecified cirrhosis of liver | CPT/HCPCS: 97597; 99212; A9270; G0463 ==

== ENCOUNTER → 2025-02-13 | Outpatient (CLI) | payer MEDICAID, SELFPAY | END | disposition home or self-care (01) | LOC: SWHD 10:21 | PROVIDERS: PCP Nurse Practitioner Family; Referring Provider Nurse Practitioner Family; Visit Provider Student in an Organized Health Care Education/Training Program | DX: E11.621 Type 2 diabetes mellitus with foot ulcer (principal); L97.522 Non-pressure chronic ulcer of other part of left foot with fat layer exposed; J44.9 Chronic obstructive pulmonary disease, unspecified; D64.9 Anemia, unspecified; Z72.0 Tobacco use; I10 Essential (primary) hypertension; F10.20 Alcohol dependence, uncomplicated; R60.0 Localized edema; K74.60 Unspecified cirrhosis of liver | CPT/HCPCS: 97597; A9270 ==